=== PATIENT | female | born 1945 | race Caucasian/White ===

== ENCOUNTER 2020-12-18 16:12 | Emergency (ER) | payer MEDICARE, SELFPAY ==
[2020-12-18 16:13] VITALS: BP 168/87; PULSE 92; RESP 18; TEMP 36.3; O2SAT 100; BMI 32.4
--- NOTE | 2020-12-18 16:42 | EKG12_ITS ---
Test Reason : CP Blood Pressure : / mmHG Vent. Rate : 088 BPM Atrial Rate : 088 BPM P-R Int : 148 ms QRS Dur : 104 ms QT Int : 370 ms P-R-T Axes : 052 -12 036 degrees QTc Int : 447 ms Sinus rhythm with occasional Premature ventricular complexes Otherwise normal ECG Confirmed by IGNACIO GARCÍA, GORAN ([id number]), publications editor ABRAM HINKLE ([id number]) on 12/20/2020 9:35:04 AM Referred By: VIOLET Confirmed By:GORAN PIERRE MD
--- NOTE | 2020-12-18 16:42 | RAD_ITS ---
STUDY: X-RAY CHEST REASON FOR EXAM: Female, 75 years old. chest pain TECHNIQUE: Frontal portable view of the chest COMPARISON: None. FINDINGS: There is right lower lobe atelectasis. Otherwise lungs are clear. There is no demonstrated pleural abnormality. Normal size heart. Normal mediastinum and gracie. Normal visualized pulmonary arteries. Normal visualized aortic arch and descending thoracic aorta. Normal visualized thoracic spine. Normal visualized ribs, clavicles, and shoulders. There is no demonstrated abnormality of the visualized soft tissue structures of the upper abdomen. RAD/Chest 1 View (Portable) IMPRESSION: Normal x-ray examination of the chest. Electronically Signed: Heather Hurst MD at 18:50 EDT Tel , Service support ,
--- NOTE | 2020-12-18 16:42 | ED.VIS.CHEST ---
HPI History of Present Illness Chief Complaint: Chest Pain Informant: patient and family Narrative Narrative: 75-year-old female states that about 9 days ago she was at [facility] in [place] and states that she had a small heart attack. She states that she had a stress test that was negative she was placed on unknown blood pressure medication. is going to get the blood pressure medication. She then moved to [place] and established care with Dr. Linton. She saw his nurse practitioner. They have been monitoring her blood pressure at home to see if medication needs to be adjusted.. Patient states it has been high but does not what it was. When her arrived he tells me her blood pressure has been 160-180/80-90. She states that today she would have a sharp pain in her left breast that would last a second and then it would be gone for a few minutes and then come back. She states she got worried and her took her blood pressure and they decided to come in. [facility] Medical History Diabetes Hypercholesteremia Hypothyroid Home Medications aspirin 81 mg PO DAILY 12/18/20 [History Last Taken Unknown] ergocalciferol (vitamin D2) 1,250 mcg PO DAILY 12/18/20 [History Last Taken Unknown] fenofibrate 160 mg PO DAILY 12/18/20 [History Last Taken Unknown] insulin NPH isoph U-100 human [Novolin N NPH U-100 Insulin] 24 unit SUBCUT BID 12/18/20 [History Last Taken Unknown] levothyroxine 150 mcg PO DAILY 12/18/20 [History Last Taken Unknown] lisinopril-hydrochlorothiazide 1 tab PO DAILY 12/18/20 [History Last Taken Unknown] Allergy/AdvReac Type Severity Reaction Status Date / Time No Known Allergies Allergy Verified 12/18/20 16:24 Social History (Updated 12/18/20 @ 16:[address] Isai Louie DO) Smoking Status: Never smoker substance use type: does not use ROS ROS ED ROS Narrative Patient feels foggy Constitutional Constitutional ED: Denies chills or weight loss Eyes Eyes: Denies change in vision or diplopia ENT ENT ED: Denies ear pain, rhinorrhea or sore throat Cardiovascular Cardiovascular: Reports chest pain; Denies orthopnea, palpitations or racing heartbeat Respiratory/Chest Respiratory/Chest: Denies cough, dyspnea or orthopnea Gastrointestinal Gastrointestinal: Denies abdominal pain, diarrhea, nausea or vomiting Genitourinary Genitourinary ED: Denies dysuria, hematuria or urinary frequency Musculoskeletal Musculoskeletal: Denies arthralgias or myalgias Integumentary Denies abscess or rash Neurologic Neurologic: Denies headache(s) or weakness Psychiatric Psychiatric: Denies anxiety, depression, suicidal ideation or suicidal thoughts Endocrine Endocrinology: Denies polydipsia, polyphagia or polyuria Allergic/Immunologic Allergic/Immunologic ED: Denies mouth swelling, tongue swelling or urticaria EXAM Physical Exam Const Vital Signs: 12/18/20 16:13 12/18/20 16:21 12/18/20 18:07 Temperature 97.4 F L Temperature Source Temporal Pulse Rate 92 97 Respiratory Rate 18 16 Respiratory Effort Normal Non-Labored Blood Pressure 168/87 H 169/81 H Blood Pressure Mean 114 110 Pulse Ox 100 97 Oxygen Delivery Method Room Air Room Air Positive well nourished, well developed and obese General Appearance ED: well developed Nutritional Appearance: obese HEENT Reports normocephalic, head/scalp atraumatic and moist mucous membranes Eyes PERRL and EOMs intact bilaterally Neck no lymphadenopathy, supple and no JVD Resp normal respiratory effort and clear to auscultation bilaterally Cardio regular rate, regular rhythm and no murmurs GI normal to inspection, nondistended, normoactive bowel sounds and non-tender Palpation: soft Back/Spine no CVA tenderness and normal ROM Extremity normal to inspection General Extremety ED: Negative for edema General Extremity: Negative for edema Neuro oriented x3 and CN's II-XII intact bilaterally Sensorium / Orientation: alert Motor Exam: strength 5/5 throughout Psych mental status grossly normal Mood & Affect: Negative for depressed or tearful Skin no rashes or lesions noted and no wounds Heart Score History: Slightly/Non-Suspicious ECG: Normal Age: >/= 65 years Risk Factors: 1 or 2 Risk Factors Troponin: </= Normal Limit Score: 3 MDM MDM MDM Narrative Medical decision making narrative: CBC negative. BMP with creatinine 1.22. D-dimer unfortunately elevated 0.66 with a troponin of 6.8. This troponin represents greater than 6 hours of symptoms prior to being drawn. CTA of the chest was negative. At this point patient will be discharged home. I recommend that they collect more data points for her blood pressure readings and report them to their nurse practitioner. I do not think that we should adjust her blood pressure medicine here in the emergency department based on a couple days worth of data. Lab Data Attestation: I reviewed the patient's lab results. Labs: Laboratory Results - last 24 hr 12/18/20 12/18/20 12/18/20 16:25 16:25 16:50 WBC 7.1 RBC 3.86 L Hgb 12.1 Hct 37.8 MCV 97.9 MCH 31.3 MCHC 32.0 RDW Std Deviation 46.3 H RDW Coeff of Alejandra 12.9 Plt Count 267 MPV 10.7 Immature Gran % (Auto) 0.300 Neut % (Auto) 66.1 Lymph % (Auto) 22.2 Casey % (Auto) 8.3 Eos % (Auto) 2.7 Baso % (Auto) 0.4 Absolute Neuts (auto) 4.7 Absolute Lymphs (auto) 1.58 Nucleated RBC % 0 D-Dimer Quant (PE/DVT) 0.66 H* Sodium 139 Potassium 4.2 Chloride 106 Carbon Dioxide 27.0 Anion Gap 6 BUN 35 H Creatinine 1.22 H Estim Creat Clear Calc 35.85 Est GFR (MDRD) Af Amer 55 L Est GFR (MDRD) Non-Af 46 L BUN/Creatinine Ratio 28.7 H Glucose 211 H Calcium 8.9 Troponin I High Sens 6.8 Radiography Diagnostic Testing: Radiology Impression Chest X-Ray 12/18/20 16:42 IMPRESSION: Normal x-ray examination of the chest. Electronically Signed: Heather Hurst MD at 18:50 EDT Tel , Service support , EKG Initial EKG: Attestation: I personally reviewed and interpreted this EKG as follows: Comments: EKG is a sinus rhythm with PVCs ventricular rate of 88 bpm Discharge Plan Triage Chief Complaint: Chest Pain ED Provider: Isai Louie Dx/Rx/DC Orders Clinical Impression: Chest pain, Hypertension Instructions: ED High Blood Pressure Hypertension Prescriptions: No Action lisinopril-hydrochlorothiazide 20-12.5 mg tablet 1 tab PO DAILY RF: 0 levothyroxine 150 mcg tablet 150 mcg PO DAILY RF: 0 aspirin 81 mg tablet,chewable 81 mg PO DAILY RF: 0 ergocalciferol (vitamin D2) 1,250 mcg (50,000 unit) capsule 1,250 mcg PO DAILY RF: 0 Novolin N NPH U-100 Insulin 100 unit/mL Cartridge 24 unit SUBCUT BID RF: 0 fenofibrate 160 mg tablet 160 mg PO DAILY RF: 0 Primary Care Provider: Martín Linton Referrals: Martín Linton MD [Primary Care Provider] - 3-5 Days Disposition Disposition: Home, Self Care
[2020-12-18 16:57] LABS: Absolute Lymphocyte Count 1.58 X10^3/uL (0.83-4.51); Absolute Neutrophil Count 4.7 X10^3/uL (2.0-7.7); Basophil# 0.03 X10^3/uL; Basophil% 0.4 % (0-1); Eosinophil# 0.19 X10^3/uL; Eosinophils% 2.7 % (0-5); Hematocrit 37.8 % (37-47); Hemoglobin 12.1 g/dL (12.0-15.0); Lymphocyte # 1.58 X10^3/ul (0.83-4.51); Lymphocyte % 22.2 % (19-41); Mean Corpuscular Hgb 31.3 pg (27.0-32.0); Mean Corpuscular Volume 97.9 fL (81-99); Mean Platelet Vol. 10.7 fl (6.2-12.0); Monocyte# 0.59 X10^3/uL; Monocyte% 8.3 % (0-10); NRBC Flagged by Analyzer 0 % (0-5); Neutrophil % 66.1 % (47-70); Platelet Count 267 K/mm3 (150-450); RBC Distribution Width CV 12.9 % (11.6-14.6); RBC Distribution Width SD 46.3 fl (35.1-43.9); Red Blood Count 3.86 M/mm3 (4.2-5.4); White Blood Count 7.1 K/mm3 (4.4-11.0)
[2020-12-18 17:13] LABS: D-Dimer Quantitative (DVT/PE) 0.66 FEU/ug/m (0.27-0.49)
[2020-12-18 17:20] LABS: Anion Gap 6 (5-15); BUN 35 mg/dL (7-18); BUN/Creat Ratio 28.7 RATIO (10-20); Calcium,Total 8.9 mg/dL (8.5-10.1); Chloride 106 mmol/L (98-107); Creatinine, Serum 1.22 mg/dL (0.55-1.02); EST Glomerular Filtration Rate 46 mL/min (>60); Est Glom Filt Rate - Afr Amer 55 mL/min (>60); Estimated Creatinine Clearance 35.85 ml/min; Glucose 211 mg/dL (74-106); Potassium 4.2 mmol/L (3.5-5.1); Sodium Level 139 mmol/L (136-145); Troponin-I HS 6.8 pg/mL (3.0-53.7)
--- NOTE | 2020-12-18 17:32 | CT_ITS ---
STUDY: CTA CHEST REASON FOR EXAM: Female, 75 years old. chest pain elevated d dimer RADIATION DOSAGE (If Supplied By Facility): CTDIvol = ( 10.93 ) mGy, DLP = ( 472.20 ) mGycm TECHNIQUE: The examination was performed with the intravenous administration of IV 100mL Isovue-370. Post-processing of the angiographic images was performed, with multiplanar reformation and 3D reconstruction. Individualized dose optimization techniques were used for this CT. COMPARISON: None. FINDINGS: Heart size and pericardium are unremarkable. The aorta is normal in caliber. No aneurysm or dissection. There is no mediastinal mass or adenopathy. There is no hilar or axillary adenopathy. There is no evidence of pulmonary embolus. There is no pleural effusion. Mild airspace disease in the right lower lobe. Lungs are otherwise clear. Visualized abdomen is unremarkable. There is no osseous abnormality. CT/CTA Chest W/WO Contrast IMPRESSION: 1. No pulmonary embolism or arterial dissection. 2. Mild right lower lobe airspace disease suspicious for pneumonia. Electronically Signed: Alexandra Carrasquillo MD at 19:35 EDT Tel , Service support ,
[2020-12-18 18:07] VITALS: BP 169/81; PULSE 97; RESP 16; O2SAT 97
== END 2020-12-18 19:52 | disposition home or self-care (01) ==
PROVIDERS: Emergency Provider Emergency Medicine; PCP Family Medicine
DX: R07.9 Chest pain, unspecified (principal); I10 Essential (primary) hypertension; E11.9 Type 2 diabetes mellitus without complications; E03.9 Hypothyroidism, unspecified; E78.00 Pure hypercholesterolemia, unspecified; E66.9 Obesity, unspecified; Z79.4 Long term (current) use of insulin; Z79.899 Other long term (current) drug therapy
CPT/HCPCS: 71045; 71275; 80048; 84484; 85025; 85379; 93005; 99285; Q9967; A4216

== ENCOUNTER 2021-08-16 23:13 | Emergency (ER) | payer MEDICARE, SELFPAY ==
[2021-08-16 23:14] VITALS: BP 159/106; PULSE 114; RESP 16; TEMP 38.3; O2SAT 95; BMI 33.3
--- NOTE | 2021-08-16 23:29 | EKG12_ITS ---
Test Reason : DYSRHYTHMIA Blood Pressure : / mmHG Vent. Rate : 096 BPM Atrial Rate : 096 BPM P-R Int : 144 ms QRS Dur : 102 ms QT Int : 358 ms P-R-T Axes : 046 -15 031 degrees QTc Int : 452 ms Normal sinus rhythm Normal ECG Confirmed by KAYLA GARCÍA, CELIO ([id number]), script editor ABRAM HINKLE ([id number]) on 08/18/2021 1:04:04 PM Referred By: PL Confirmed By:SAMREEN GARZA MD
--- NOTE | 2021-08-16 23:31 | EDS_ITS ---
HPI History of Present Illness Chief Complaint: General Illness Informant: patient and spouse/S.O. Narrative Narrative: Patient presents with a couple days of generalized weakness mild nausea decreased p.o. intake. She states she is not dizzy. When I asked detail s it is more of a feeling of just feeling off and woozy and ill. It is not vertigo or spinning. It is not presyncope. She has no chest pain or cough. No abdominal pain. No diarrhea. She has had some mild nausea but no vomiting. Her appetite has been down and she has not been eating or drinking much because of the nausea. She does have frequent urination although no dysuria. However, she does have frequent UTIs about every 2 or so months. This is common symptoms that she has with her UTIs. She has been feeling warm at home but has not actually taken her temperature. No rashes. Nothing specifically makes her symptoms better or worse. [facility] Medical History Diabetes Hypercholesteremia Hypothyroid Home Medications aspirin 81 mg PO DAILY 12/18/20 [History Last Taken Unknown] ergocalciferol (vitamin D2) 1,250 mcg PO DAILY 12/18/20 [History Last Taken Unknown] fenofibrate 160 mg PO DAILY 12/18/20 [History Last Taken Unknown] insulin NPH isoph U-100 human [Novolin N NPH U-100 Insulin] 24 unit SUBCUT BID 12/18/20 [History Last Taken Unknown] levothyroxine 150 mcg PO DAILY 12/18/20 [History Last Taken Unknown] lisinopril-hydrochlorothiazide 1 tab PO DAILY 12/18/20 [History Last Taken Unknown] nitrofurantoin monohyd/m-cryst [Macrobid] 100 mg PO BID 7 Days #14 cap 08/17/21 [Rx Last Taken Unknown] ondansetron 4 mg PO Q8H PRN #10 tab 08/17/21 [Rx Last Taken Unknown] Allergy/AdvReac Type Severity Reaction Status Date / Time No Known Allergies Allergy Verified 08/16/21 23:23 Social History Smoking Status: Never smoker substance use type: does not use ROS ROS ED Constitutional Constitutional ED: Reports subjective Eyes Eyes: Denies blurry vision ENT ENT ED: Denies rhinorrhea or sore throat Cardiovascular Cardiovascular: Denies chest pain or palpitations Respiratory/Chest Respiratory/Chest: Denies cough or dyspnea Gastrointestinal Gastrointestinal: Reports nausea; Denies abdominal pain, diarrhea or vomiting Genitourinary Genitourinary ED: Reports urinary frequency; Denies dysuria or hematuria Musculoskeletal Musculoskeletal: Denies myalgias Integumentary Denies rash Neurologic Neurologic: Denies headache(s), paresthesias or weakness Endocrine Endocrinology: Denies polydipsia or polyuria Allergic/Immunologic Allergic/Immunologic ED: Denies urticaria EXAM Physical Exam Const Vital Signs: 08/16/21 23:14 08/16/21 23:43 Temperature 100.9 F H 100.6 F H Temperature Source Temporal Oral Pulse Rate 114 H 105 H Respiratory Rate 16 18 Blood Pressure 159/106 H 156/86 H Blood Pressure Mean 123 109 Pulse Ox 95 95 Oxygen Delivery Method Room Air Room Air Positive well nourished and well developed General Appearance ED: well developed and NAD; Negative for cyanotic or diaphoretic HEENT Reports dry mucous membranes Mouth ED: Yes dry mucous membranes Mouth: dry mucous membranes Eyes General Eye ED: Negative for pale conjunctiva or scleral icterus Neck no JVD Chest Wall inspection of chest normal Resp normal respiratory effort and clear to auscultation bilaterally Auscultation: Negative for rales, rhonchi or wheezes Cardio regular rhythm and no murmurs Rate: tachycardic GI normal to inspection, nondistended, normoactive bowel sounds and non-tender Palpation: soft Back/Spine no CVA tenderness Extremity normal to inspection General Extremety ED: Negative for edema or tenderness General Extremity: Negative for edema Neuro oriented x3 and no sensory deficits noted Sensorium / Orientation: alert; Negative for orientation impaired, lethargic or stuporous Motor Exam: strength 5/5 throughout Psych mental status grossly normal Skin no rashes or lesions noted MDM MDM MDM Narrative Medical decision making narrative: Patient's white count is normal. CBC shows minimal anemia. Electrolytes show minimally decreased sodium creatinine 1.24. Glucose a little bit up at 177. Troponin is negative at 5. Urine is strongly positive for UTI. This is consistent with her symptoms and her history. I did give her some IV fluids and IV Rocephin here. Her heart rate is now down to 89. Her nausea is gone. She is drinking water while I am in the room. I will get her home on Macrobid. Cultures were sent. I will also write for Mathieu for nausea. We discussed returning with any vomiting, worsening fevers, flank pain, lightheadedness, confusion or other concerns. Lab Data Attestation: I reviewed the patient's lab results. Labs: Laboratory Results - last 24 hr 08/16/21 08/16/21 08/16/21 23:20 23:20 23:28 WBC 10.7 RBC 3.82 L Hgb 11.9 L Hct 36.0 L MCV 94.2 MCH 31.2 MCHC 33.1 RDW Std Deviation 46.4 H RDW Coeff of Alejandra 13.4 Plt Count 298 MPV 10.3 Immature Gran % (Auto) 0.400 Neut % (Auto) 79.4 H Lymph % (Auto) 10.1 L Prentiss % (Auto) 9.2 Eos % (Auto) 0.7 Baso % (Auto) 0.2 Absolute Neuts (auto) 8.5 H Absolute Lymphs (auto) 1.08 Nucleated RBC % 0 Sodium 132 L Potassium 4.9 Chloride 104 Carbon Dioxide 22.0 Anion Gap 6 BUN 24 H Creatinine 1.24 H Estim Creat Clear Calc 35.27 Est GFR (MDRD) Af Amer 54 L Est GFR (MDRD) Non-Af 45 L BUN/Creatinine Ratio 19.4 Glucose 177 H Calcium 9.2 Troponin I High Sens 5 Urine Color Urine Clarity Urine pH Ur Specific [place] Urine Protein Urine Glucose (UA) Urine Ketones Urine Occult Blood Urine Nitrite Urine Bilirubin Urine Urobilinogen Ur Leukocyte Esterase Urine RBC Urine WBC Ur Squamous Epith Cells Ur Renal Epithelial Cell Urine Bacteria Urine Mucus POC Glucose 193 H 08/16/21 23:40 WBC RBC Hgb Hct MCV MCH MCHC RDW Std Deviation RDW Coeff of Alejandra Plt Count MPV Immature Gran % (Auto) Neut % (Auto) Lymph % (Auto) Prentiss % (Auto) Eos % (Auto) Baso % (Auto) Absolute Neuts (auto) Absolute Lymphs (auto) Nucleated RBC % Sodium Potassium Chloride Carbon Dioxide Anion Gap BUN Creatinine Estim Creat Clear Calc Est GFR (MDRD) Af Amer Est GFR (MDRD) Non-Af BUN/Creatinine Ratio Glucose Calcium Troponin I High Sens Urine Color Yellow Urine Clarity Cloudy Urine pH 6.0 Ur Specific [place] 1.010 Urine Protein 30 H Urine Glucose (UA) Normal Urine Ketones Negative Urine Occult Blood 50 H Urine Nitrite Positive H Urine Bilirubin Negative Urine Urobilinogen Normal Ur Leukocyte Esterase 500 H Urine RBC 5-10 SEEN Urine WBC >100 SEEN Ur Squamous Epith Cells 5-10 SEEN Ur Renal Epithelial Cell 0-5 SEEN Urine Bacteria 2+ Urine Mucus 0 SEEN POC Glucose EKG Initial EKG: Comments: EKG done for generalized weakness and elderly read by me shows a normal sinus rhythm with a rate of 96. No ventricular ectopy. No acute ST elevation or depression. WI interval, QRS duration and QTc normal. Discharge Plan Triage Chief Complaint: General Illness ED Provider: Fer Fish Dx/Rx/DC Orders Clinical Impression: Urinary tract infection Instructions: ED CYSTITIS Female Adult Prescriptions: New ondansetron 4 mg tablet,disintegrating 4 mg PO Q8H PRN (Reason: nausea and vomiting) Qty: 10 RF: 0 nitrofurantoin monohyd/m-cryst [Macrobid] 100 mg capsule 100 mg PO BID 7 Days Qty: 14 RF: 0 No Action lisinopril-hydrochlorothiazide 20-12.5 mg tablet 1 tab PO DAILY RF: 0 levothyroxine 150 mcg tablet 150 mcg PO DAILY RF: 0 aspirin 81 mg tablet,chewable 81 mg PO DAILY RF: 0 ergocalciferol (vitamin D2) 1,250 mcg (50,000 unit) capsule 1,250 mcg PO DAILY RF: 0 Novolin N NPH U-100 Insulin 100 unit/mL Cartridge 24 unit SUBCUT BID RF: 0 fenofibrate 160 mg tablet 160 mg PO DAILY RF: 0 Primary Care Provider: Martín Linton Referrals: Martín Linton MD [Primary Care Provider] - 3-5 Days if not improving Disposition Disposition: Home, Self Care
[2021-08-16 23:35] LABS: Bedside Glucose 193 mg/dL (74-106)
[2021-08-16] MEDS: Acetaminophen 325 MG Tablet 650 MG PO (23:41)
[2021-08-16] MEDS: Ondansetron 4 MG/2 ML Vial IV (23:42)
[2021-08-16] MEDS: 0.9% Normal Saline 1,000 ML 1000 ML IV (23:42)
[2021-08-16 23:43] VITALS: BP 156/86; PULSE 105; RESP 18; TEMP 38.1; O2SAT 95
[2021-08-16 23:51] LABS: Mucous, Urine 0 SEEN /hpf (<or=2+)
[2021-08-16 23:52] LABS: Absolute Lymphocyte Count 1.08 X10^3/uL (0.83-4.51); Absolute Neutrophil Count 8.5 X10^3/uL (2.0-7.7); Basophil# 0.02 X10^3/uL; Basophil% 0.2 % (0-1); Eosinophil# 0.08 X10^3/uL; Eosinophils% 0.7 % (0-5); Hemoglobin 11.9 g/dL (12.0-15.0); Lymphocyte # 1.08 X10^3/ul (0.83-4.51); Lymphocyte % 10.1 % (19-41); Mean Corp Hgb Conc 33.1 g/dL (32-36); Mean Corpuscular Hgb 31.2 pg (27.0-32.0); Mean Corpuscular Volume 94.2 fL (81-99); Mean Platelet Vol. 10.3 fl (6.2-12.0); Monocyte# 0.98 X10^3/uL; Monocyte% 9.2 % (0-10); NRBC Flagged by Analyzer 0 % (0-5); Neutrophil # 8.49 X10^3/uL (2.7-7.7); Neutrophil % 79.4 % (47-70); Platelet Count 298 K/mm3 (150-450); RBC Distribution Width CV 13.4 % (11.6-14.6); RBC Distribution Width SD 46.4 fl (35.1-43.9); Red Blood Count 3.82 M/mm3 (4.2-5.4); White Blood Count 10.7 K/mm3 (4.4-11.0)
[2021-08-16 23:53] LABS: Color, Urine Yellow (Yellow); Glucose, Dipstick Normal (Normal); Ketone-Dipstick Negative (Negative); Leukocyte Esterase-Dipstick 500 /ul (Negative); Nitrite-Dipstick Positive (Negative); Occult Blood-Urine 50 /ul (Negative); Protein-Dipstick 30 mg/dl (Negative); Urine Bilirubin Dipstick Negative (Negative); Urine Clarity Cloudy (Clear); Urine Urobilinogen Normal (Normal)
[2021-08-17] LABS: Red Blood Cells-Urine 5-10 SEEN /hpf (0-5); Squamous Epithelial Cells - UA 5-10 SEEN /hpf (5-10); White Blood Cells >100 SEEN /hpf (0-5)
[2021-08-17 00:01] LABS: Bacteria 2+ /hpf (None Seen); Renal Epithelial Cells 0-5 SEEN /hpf (0-5)
[2021-08-17] MEDS: Ceftriaxone 1 GM/50 ML BAG IV (00:21)
[2021-08-17 00:22] LABS: Anion Gap 6 (5-15); BUN 24 mg/dL (7-18); BUN/Creat Ratio 19.4 RATIO (10-20); Calcium,Total 9.2 mg/dL (8.5-10.1); Chloride 104 mmol/L (98-107); Creatinine, Serum 1.24 mg/dL (0.55-1.02); EST Glomerular Filtration Rate 45 mL/min (>60); Est Glom Filt Rate - Afr Amer 54 mL/min (>60); Estimated Creatinine Clearance 35.27 ml/min; Glucose 177 mg/dL (74-106); Potassium 4.9 mmol/L (3.5-5.1); Sodium Level 132 mmol/L (136-145); Troponin-I HS 5 pg/mL (3.0-54.0)
[2021-08-17 01:28] VITALS: BP 139/64; PULSE 83; RESP 18; TEMP 36.8; O2SAT 93
== END 2021-08-17 01:33 | disposition home or self-care (01) ==
PROVIDERS: Emergency Provider Emergency Medicine; PCP Family Medicine; Visit Provider Emergency Medicine
DX: N39.0 Urinary tract infection, site not specified (principal); E11.9 Type 2 diabetes mellitus without complications; R11.0 Nausea; D64.9 Anemia, unspecified; E78.00 Pure hypercholesterolemia, unspecified; Z79.82 Long term (current) use of aspirin; Z79.890 Hormone replacement therapy; Z79.899 Other long term (current) drug therapy
CPT/HCPCS: 80048; 81001; 82962; 84484; 85025; 87086; 87088; 87186; 93005; 96361; 96365; 96375; 99284; J2405

== ENCOUNTER 2023-10-17 08:28 | Emergency (ER) | payer MEDICARE, SELFPAY ==
[2023-10-17 08:29] VITALS: BP 166/75; PULSE 84; RESP 16; TEMP 36.6; O2SAT 97; BMI 34.4
--- NOTE | 2023-10-17 08:39 | RAD_ITS ---
STUDY: X-RAY - LEFT HUMERUS REASON FOR EXAM: Female, 78 years old. FALL TECHNIQUE: 3 view(s) of the humerus. COMPARISON: None. FINDINGS: There is a nondisplaced fracture of the surgical neck of the proximal humerus extending into the lesser and greater tuberosities. Soft tissue swelling. RAD/Humerus min 2 Views IMPRESSION: Nondisplaced transverse fracture through the surgical neck of the proximal humerus with extension to the greater and lesser tuberosities. Electronically Signed: Jax Liz MD at 9:11 EDT ,
--- NOTE | 2023-10-17 08:52 | EDS_ITS ---
HPI History of Present Illness Chief Complaint: Upper Extremity Injury Informant: patient and EMS Narrative Narrative: 78-year-old female presenting to the emergency room with left upper arm pain. Patient states that she took a fall this morning after stepping wrong coming out onto her deck. She states that she is unsure if she tried to catch herself but knows that the left shoulder hit the ground. She denies any other injuries. The patient states that the pain is feeling better now but still hurts just below her left shoulder. [facility] Medical History Hypercholesteremia Diabetes Hypothyroid Home Medications ?Medication ?Instructions ?Recorded ?Last Taken ?Type aspirin 81 mg chewable tablet 81 mg PO DAILY 12/18/20 Unknown History ergocalciferol (vitamin D2) 1,250 1,250 mcg PO DAILY 12/18/20 Unknown History mcg (50,000 unit) capsule fenofibrate 160 mg tablet 160 mg PO DAILY 12/18/20 Unknown History insulin NPH isoph U-100 human 100 24 unit subcut BID 12/18/20 Unknown History unit/mL subcutaneous cartridge levothyroxine 150 mcg tablet 150 mcg PO DAILY 12/18/20 Unknown History lisinopril 20 1 tab PO DAILY 12/18/20 Unknown History mg-hydrochlorothiazide 12.5 mg tablet nitrofurantoin 100 mg PO BID 7 days #14 caps 08/17/21 Unknown Rx monohydrate/macrocrystals 100 mg capsule (Macrobid) ondansetron 4 mg disintegrating 4 mg PO Q8H PRN nausea and 08/17/21 Unknown Rx tablet vomiting #10 tabs oxycodone-acetaminophen 5 mg-325 1 tab PO Q8H PRN pain 3 days #12 10/17/23 Unknown Rx mg tablet (Percocet) tabs Allergy/AdvReac Type Severity Reaction Status Date / Time No Known Allergies Allergy Verified 10/17/23 08:33 Social History Smoking Status: Never smoker substance use type: does not use ROS ROS ED Constitutional Constitutional ED: Denies chills, fever(s) or weight loss Eyes Eyes: Denies change in vision or diplopia ENT ENT ED: Denies ear pain, rhinorrhea or sore throat Cardiovascular Cardiovascular: Denies chest pain, orthopnea, palpitations or racing heartbeat Respiratory/Chest Respiratory/Chest: Denies cough, dyspnea or orthopnea Gastrointestinal Gastrointestinal: Denies abdominal pain, diarrhea, nausea or vomiting Genitourinary Genitourinary ED: Denies dysuria, hematuria or urinary frequency Musculoskeletal Musculoskeletal: Reports other Details: Left upper arm pain ; Denies arthralgias, back pain, myalgias or neck pain Integumentary Denies abscess, Abrasions or rash Neurologic Neurologic: Denies headache(s) or weakness Psychiatric Psychiatric: Denies anxiety, depression, suicidal ideation or suicidal thoughts Endocrine Endocrinology: Denies polydipsia, polyphagia or polyuria Allergic/Immunologic Allergic/Immunologic ED: Denies mouth swelling, tongue swelling or urticaria EXAM Physical Exam Const Vital Signs: 10/17/23 08:29 Temperature 98 F Temperature Source Oral Pulse Rate 84 Respiratory Rate 16 Blood Pressure 166/75 H Blood Pressure Mean 105 Pulse Ox 97 Oxygen Delivery Method Room Air Positive well nourished, well developed and obese General Appearance ED: well developed Nutritional Appearance: obese HEENT Reports normocephalic, head/scalp atraumatic and moist mucous membranes Eyes PERRL and EOMs intact bilaterally Neck full ROM, no lymphadenopathy, supple and no JVD General: Negative for tenderness Resp normal respiratory effort and clear to auscultation bilaterally Cardio regular rate, regular rhythm and no murmurs GI normal to inspection, nondistended, normoactive bowel sounds and non-tender Palpation: soft Back/Spine no CVA tenderness and normal ROM Extremity Extremity Narrative: Patient is laying in the bed no acute distress. She holds the left shoulder and more of the left shoulder shrug. She points to the mid upper humerus as the area that hurts. I do not palpate a deformity dislocation or significant swelling or see ecchymosis. Limited range of motion secondary to pain. The cla vicle palpates normally. No tenderness over the scapula. General Extremety ED: Negative for edema General Extremity: Negative for edema Neuro oriented x3 and CN's II-XII intact bilaterally Sensorium / Orientation: alert Motor Exam: strength 5/5 throughout Psych mental status grossly normal Mood & Affect: Negative for depressed or tearful Skin no rashes or lesions noted and no wounds MDM MDM MDM Narrative Medical decision making narrative: Differential diagnosis includes rotator cuff injury fracture sprain strain bursitis tendinitis My independent interpretation of the plain films is an acutely comminuted fracture of the proximal humerus. Patient received pain medication. She will be placed in a sling. I spoke with the patient regarding follow-up. Given the location and the comminuted fracture I informed her I would speak with orthopedics to see if they would prefer a CT scan for more thorough evaluation. She states that she does not do CT scans and even if she did she would have 1 done today. She states that she would like to go home and will make a follow-up appointment. I can write for some pain medication. History & Record Review Discussion w/independent historian: Patient Lab Data Attestation: I reviewed the patient's lab results. Radiography Diagnostic Testing: Clinical Impression(s) from Imaging Studies Humerus X-Ray 10/17/23 08:39 IMPRESSION: Nondisplaced transverse fracture through the surgical neck of the proximal humerus with extension to the greater and lesser tuberosities. Electronically Signed: Jax Liz MD at 9:11 EDT , Discharge Plan Triage Chief Complaint: Upper Extremity Injury ED Provider: Isai Louie Dx/Rx/DC Orders Clinical Impression: Fall, Fracture of proximal end of humerus Instructions: ED Fracture, Shoulder Prescriptions: New oxycodone-acetaminophen [Percocet] 5-325 mg tablet 1 tab PO Q8H PRN (Reason: pain) 3 Days Qty: 12 0RF No Action lisinopril-hydrochlorothiazide 20-12.5 mg tablet 1 tab PO DAILY Patient Comments: TAKE 1 TABLET BY MOUTH DAILY levothyroxine 150 mcg tablet 150 mcg PO DAILY Patient Comments: TAKE 1 TABLET BY MOUTH ONCE DAILY aspirin 81 mg tablet,chewable 81 mg PO DAILY Patient Comments: chew and swallow 1 tablet every day ergocalciferol (vitamin D2) 1,250 mcg (50,000 unit) capsule 1,250 mcg PO DAILY Patient Comments: TAKE 1 CAPSULE EVERY WEEK Novolin N NPH U-100 Insulin 100 unit/mL Cartridge 24 unit SUBCUT BID fenofibrate 160 mg tablet 160 mg PO DAILY Patient Comments: TAKE 1 TABLET BY MOUTH EVERY DAY ondansetron 4 mg tablet,disintegrating 4 mg PO Q8H PRN (Reason: nausea and vomiting) Qty: 10 0RF nitrofurantoin monohyd/m-cryst [Macrobid] 100 mg capsule 100 mg PO BID 7 Days Qty: 14 0RF Rx Instructions: must administer with a meal/food Primary Care Provider: Martín Linton Referrals: Martín Linton MD [Primary Care Provider] - Marty Penny DO [Med Staff - Active Staff] - As soon as possible Print Language: Upper Sorbian Disposition Disposition: Home, Self Care Discharge Date/Time: 10/17/23 10:22
[2023-10-17] MEDS: oxyCODONE 5 MG Tablet PO (09:17)
[2023-10-17] MEDS: Acetaminophen 500 MG Tablet 1000 MG PO (09:18)
[2023-10-17 10:21] VITALS: BP 154/89; PULSE 67; RESP 16; TEMP 36.7; O2SAT 98
== END 2023-10-17 10:22 | disposition home or self-care (01) ==
PROVIDERS: Emergency Provider Emergency Medicine; PCP Family Medicine; Visit Provider Emergency Medicine
DX: S42.215A Unspecified nondisplaced fracture of surgical neck of left humerus, initial encounter for closed fracture (principal); E11.9 Type 2 diabetes mellitus without complications; Z79.4 Long term (current) use of insulin; W01.10XA Fall on same level from slipping, tripping and stumbling with subsequent striking against unspecified object, initial encounter; E78.00 Pure hypercholesterolemia, unspecified; E03.9 Hypothyroidism, unspecified; Z79.82 Long term (current) use of aspirin; Z79.890 Hormone replacement therapy; Z79.899 Other long term (current) drug therapy
CPT/HCPCS: 73060; 99283

== ENCOUNTER 2024-02-04 11:08 | Inpatient (IN) | payer MEDICARE, SELFPAY ==
[2024-02-04] VITALS (9 sets, daily range): BP systolic 120–176; BP diastolic 78–110; PULSE 86–101; RESP 17–30; TEMP 36.1–37; O2SAT 82–98; BMI 35.6; BMI 33.7
--- NOTE | 2024-02-04 11:30 | RAD_ITS ---
HISTORY: Congestion, shortness of breath, hypoxia. TECHNIQUE: XR Chest 2 Views. COMPARISON: 12/18/2020. FINDINGS: CARDIOMEDIASTINAL BORDERS: Cardiac silhouette within normal limits in size. Mediastinal contour unremarkable with calcification of the aortic knob. LUNGS: Radiographically clear. PLEURA: No pleural effusion or pneumothorax seen. OSSEOUS STRUCTURES: Degenerative change. 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 RAD/Chest PA and Lateral IMPRESSION: No acute cardiopulmonary process identified. Electronically Signed: Dolly Baker MD at 12:15 EDT ,
--- NOTE | 2024-02-04 11:30 | EKG12_ITS ---
Test Reason : SOB/PALP Blood Pressure : / mmHG Vent. Rate : 094 BPM Atrial Rate : 094 BPM P-R Int : 154 ms QRS Dur : 136 ms QT Int : 420 ms P-R-T Axes : 057 -59 012 degrees QTc Int : 525 ms Normal sinus rhythm Possible Left atrial enlargement Right bundle branch block Left anterior fascicular block Bifascicular block Abnormal ECG Confirmed by IGNACIO GARCÍA, GORAN ([id number]), general expeditor MAYO FAUSTIN ([id number]) on 02/07/2024 6:20:16 AM Referred By: ES/UG Confirmed By:GORAN PIERRE MD
--- NOTE | 2024-02-04 11:39 | ED.VIS.DYS ---
HPI History of Present Illness Chief Complaint: Shortness of Breath Detail of Chief Complaint: Shortness of breath and generalized weakness Informant: patient and spouse/S.O. Onset/Context/Timing Onset: Days Context: gradual Timing: Continuous and Waxes and wanes Quality: Positive for Dyspnea on exertion and Orthopnea (Patient slept in a recliner for approximately 1 year); Negative for PND or Wheezing Current Severity: Mild Maximum Severity: Moderate Worsened by: Exertion, Lying flat and Coughing Relieved by: Nothing Associated Symptoms cough and rhinorrhea; Negative for post nasal drip, ear pain, fever, sore throat, subjective, chills or sweats Chest Pain: Positive for None Narrative Narrative: Patient is a 78-year-old woman. She arrived by ambulance. Ambulance was called because she was short of breath. Pulse ox on room air was 82%. Patient is not on oxygen. She has history of atrial fibrillation, hypothyroidism and hypertension. Patient reports compliance with her meds. She states she took a aspirin this morning. She is not on an anticoagulant. She denies history of smoking. She denies history of lung problems and specifically asthma or COPD. Patient does have history of swollen legs. She has had this for some time. She denies history of VTE. She denies leg discoloration or pain. She denies pain with breathing. She denies abdominal pain, black or maroon-colored stool. Patient denies fever, chills night sweats. She does have some upper respiratory symptoms. She denies ill contacts. PE Risk Factors: Negative for Cancer, OCP + Smoking + > 35, Prior DVT or PE, Recent immobilization, Recent surgery or Recent travel Prior similar symptoms: No Recent Illness/Hospitalization: Yes (Recently diagnosed with atrial fibrillation.) [facility] Medical History (Updated 02/04/24 @ 14:[address] Casimiro Parikh MD) Atrial fibrillation Hypercholesteremia Diabetes Hypothyroid Home Medications ?Medication ?Instructions ?Recorded ?Last Taken ?Type fenofibrate 160 mg tablet 160 mg PO DAILY 12/18/20 Unknown History insulin NPH isoph U-100 human 100 24 unit subcut BID 12/18/20 Unknown History unit/mL subcutaneous cartridge ondansetron 4 mg disintegrating 4 mg PO Q8H PRN nausea and 08/17/21 Unknown Rx tablet vomiting #10 tabs oxycodone-acetaminophen 5 mg-325 1 tab PO Q8H PRN pain 3 days #12 10/17/23 Unknown Rx mg tablet (Percocet) tabs ascorbic acid (vitamin C) 100 mg 100 mg PO QDAY 01/24/24 Unknown History tablet aspirin 325 mg tablet 325 mg PO QDAY 01/24/24 Unknown History enalapril maleate 20 mg tablet 20 mg PO QDAY 01/24/24 Unknown History ergocalciferol (vitamin D2) 1,250 1,250 mcg PO QWEEK 01/24/24 Unknown History mcg (50,000 unit) capsule levothyroxine 175 mcg tablet 175 mcg PO QDAY 01/24/24 Unknown History (Synthroid) multivitamin 1 tab PO QAM 01/24/24 Unknown History sertraline 100 mg tablet 100 mg PO QDAY 01/24/24 Unknown History zinc acetate PO 01/24/24 Unknown History Allergy/AdvReac Type Severity Reaction Status Date / Time prednisone Allergy Mild unknown Verified 02/04/24 11:08 Surgical History H/O tubal ligation Social History Smoking Status: Never smoker Electronic Cigarette Use: not used alcohol intake: never substance use type: does not use ROS ROS ED Constitutional Constitutional ED: Denies chills, fever(s) or sweats Eyes Eyes: Denies blurry vision or change in vision ENT ENT ED: Reports rhinorrhea; Denies ear pain or sore throat Cardiovascular Cardiovascular: Reports orthopnea; Denies chest pain, palpitations, paroxysmal nocturnal dyspnea or racing heartbeat Respiratory/Chest Respiratory/Chest: Reports cough, dyspnea, dyspnea on exertion, orthopnea and sputum; Denies paroxysmal nocturnal dyspnea Gastrointestinal Gastrointestinal: Denies abdominal pain, diarrhea, melena, nausea or vomiting Genitourinary Genitourinary ED: Reports other Details: Patient states she has had urinary tract infection. She has symptoms when she has an infection. Presently she has none. ; Denies dysuria, hematuria or urinary frequency Musculoskeletal Musculoskeletal: Denies back pain or neck pain Integumentary Denies rash Neurologic Neurologic: Reports weakness; Denies headache(s) or paresthesias Endocrine Endocrinology: Denies cold intolerance or heat intolerance Hematologic/Lymphatic Hematologic/Lymphatic: Denies easy bleeding or easy bruising EXAM Physical Exam Const Vital Signs: 02/04/24 11:08 02/04/24 11:12 02/04/24 11:13 Temperature 98.6 F 98.4 F Temperature Source Oral Oral Pulse Rate 101 H 98 Respiratory Rate 18 24 H Respiratory Effort Short of Breath Respiratory Depth Normal Respiratory Pattern Tachypnea Blood Pressure 168/84 H 168/84 H Blood Pressure Mean 112 112 Pulse Ox 94 94 Oxygen Delivery Method Nasal Cannula Nasal Cannula Nasal Cannula Oxygen Flow Rate (L/min) 4 2 2 02/04/24 11:48 02/04/24 13:07 Temperature Temperature Source Pulse Rate 92 Respiratory Rate 30 H Respiratory Effort Respiratory Depth Respiratory Pattern Blood Pressure 127/110 H Blood Pressure Mean 115 Pulse Ox 96 95 Oxygen Delivery Method Nasal Cannula Nasal Cannula Oxygen Flow Rate (L/min) 2 4 Positive well nourished, well developed and unkempt Constitutional Narrative: Patient is slightly tachypneic. There is no use of accessory muscles. General Appearance ED: unkempt, well developed and pallor HEENT Reports dry mucous membranes HEENT Narrative: Head is atraumatic no cephalic. Ears normal. Nares patent. Posterior pharynx is normal. Uvula is midline. There is no deviation of the tongue with protrusion. Mouth ED: Yes dry mucous membranes Mouth: dry mucous membranes Eyes PERRL and EOMs intact bilaterally General Eye ED: Negative for pale conjunctiva or scleral icterus Neck no lymphadenopathy, supple, no meningeal signs and no JVD Resp normal respiratory effort and clear to auscultation bilaterally Cardio regular rate, regular rhythm, S1 normal heart sound, S2 normal heart sound and no murmurs GI non-tender, non-distended and no masses Auscultation: normoactive bowel sounds Palpation: soft Back/Spine no CVA tenderness Extremity Extremity Narrative: There is evidence of venous stasis dermatitis. General Extremety ED: Yes edema General Extremity: edema Neuro oriented x3 and CN's II-XII intact bilaterally [place] Coma Scale: document GCS findings Spontaneous Obeys Commands Oriented 15 Sensorium / Orientation: alert Speech: speech normal Psych Appearance: unkempt Mood & Affect: depressed Skin no wounds and No skin turgor normal General Skin Exam: pallor; Negative for jaundice MDM MDM MDM Narrative Medical decision making narrative: Differential diagnosis would include pneumonia, pulmonary embolus, doubt CHF. Also need to consider cardiac ischemia. Symptoms are suggestive of possible viral illness. For this reason we will obtain rapid antigen for COVID, RSV and influenza. EKG was obtained to assess rhythm as well as any acute ischemia. CBC to assess white count and H&H and she appears pale. Since she is diabetic electrolyte panel was obtained to assess glucose, anion gap as well as renal function. Since there is concern for infection lactate was ordered as well as comprehensive metabolic panel to assess for any or endorgan dysfunction. Lab Data Labs: Laboratory Results - last 24 hr 02/04/24 11:49 WBC 6.4 RBC 3.80 L Hgb 11.8 L Hct 36.9 L MCV 97.1 MCH 31.1 MCHC 32.0 RDW Std Deviation 47.3 H RDW Coeff of Alejandra 13.3 Plt Count 251 MPV 11.1 Immature Gran % (Auto) 0.500 Neut % (Auto) 78.0 H Lymph % (Auto) 11.5 L Wake % (Auto) 8.1 Eos % (Auto) 1.6 Baso % (Auto) 0.3 Absolute Neuts (auto) 5.0 Absolute Lymphs (auto) 0.74 L Nucleated RBC % 0 Sodium 138 Potassium 4.8 Chloride 108 H Carbon Dioxide 23.0 Anion Gap 7 BUN 39 H Creatinine 1.30 H Estim Creat Clear Calc 41.48 Est GFR (MDRD) Af Amer 51 L Est GFR (MDRD) Non-Af 42 L BUN/Creatinine Ratio 30.0 H Glucose 247 H Lactic Acid 2.0 Calcium 9.1 Total Bilirubin 0.30 AST 26 ALT 22 Alkaline Phosphatase 49 Troponin I High Sens 42 Total Protein 7.9 Albumin 3.3 Globulin 4.6 H Albumin/Globulin Ratio 0.7 L Radiography Chest X-Ray - ED: 2 View, Read by ED Physician, Normal, Heart, Lungs (Lung parenchyma is unremarkable with no evidence of congestive heart failure, infiltrates or atelectasis.), Mediastinum, Bony Structures and No Acute Disease Diagnostic Testing: Clinical Impression(s) from Imaging Studies Chest X-Ray 02/04/24 11:30 IMPRESSION: No acute cardiopulmonary process identified. Electronically Signed: Dolly Baker MD at 12:15 EDT Reading Location ID and State: [facility] / CT Tel , Service support , CTA of the chest reveals bilateral significant pulmonary embolus. Spoke with Dr. Noah Singh's nurse practitioner. They will evaluate patient for possible thrombectomy. Recommended heparin bolus and drip. This will be conveyed to the hospitalist. Rhythm Strip Rhythm Strip: Sinus Rhythm (99) Rate: 99 (Complexes wide.) Ectopy: None EKG Initial EKG: Attestation: I personally reviewed and interpreted this EKG as follows: Interpretation: Sinus Rhythm (Rate is 94. SD interval is 154 ms. QRS duration is prolonged at 136 ms and has configuration of right bundle branch block and probable left anterior fascicular block. QT duration is 420 ms. The EKG is abnormal.) Management Discussion w/another healthcare provider: Hospitalist (For admission for respiratory failure due to pulmonary embolus) and Histotechnician (Dr. Singh to evaluate for pulmonary thrombectomy) Treatment and Re-Evaluation :: CTA of the chest reveals bilateral pulmonary embolus. Since patient hypoxic require admission. Dr. Singh was paged to discuss/ask if he does pulmonary thrombectomies. Critical Care Time Critical Care Time: Yes Critical care time (excluding procedures): 30-74 minutes (33), Including time spent: (History, physical, documentation, independent rotation laboratory results, imaging, CAT scan, discussion with sap consultant for pulmonary thrombectomy), Discussing w/Patient &/or Family/Roustabout Crew, Discussing w/Consultants and Arranging Admission or Transfer Discharge Plan Triage Chief Complaint: Shortness of Breath ED Provider: Casimiro Parikh Dx/Rx/DC Orders Clinical Impression: Acute hypoxemic respiratory failure, Hypertension, Bilateral pulmonary embolism, Tachypnea, Chronic venous stasis dermatitis Prescriptions: No Action levothyroxine [Synthroid] 175 mcg tablet 175 mcg PO QDAY enalapril maleate 20 mg tablet 20 mg PO QDAY aspirin 325 mg tablet 325 mg PO QDAY multivitamin Tablet 1 tab PO QAM ascorbic acid (vitamin C) 100 mg tablet 100 mg PO QDAY zinc acetate PO sertraline 100 mg tablet 100 mg PO QDAY Novolin N NPH U-100 Insulin 100 unit/mL Cartridge 24 unit SUBCUT BID fenofibrate 160 mg tablet 160 mg PO DAILY Patient Comments: TAKE 1 TABLET BY MOUTH EVERY DAY ergocalciferol (vitamin D2) 1,250 mcg (50,000 unit) capsule 1,250 mcg PO QWEEK Patient Comments: TAKE 1 CAPSULE EVERY WEEK ondansetron 4 mg tablet,disintegrating 4 mg PO Q8H PRN (Reason: nausea and vomiting) Qty: 10 0RF oxycodone-acetaminophen [Percocet] 5-325 mg tablet 1 tab PO Q8H PRN (Reason: pain) 3 Days Qty: 12 0RF Primary Care Provider: Martín Linton Referrals: Martín Linton MD [Primary Care Provider] - Print Language: New Zealander Disposition Disposition: Acute Care Hospital [facility]
[2024-02-04 12:18] LABS: Absolute Lymphocyte Count 0.74 X10^3/uL (0.83-4.51); Basophil# 0.02 X10^3/uL; Basophil% 0.3 % (0-1); Eosinophils% 1.6 % (0-5); Hematocrit 36.9 % (37-47); Hemoglobin 11.8 g/dL (12.0-15.0); Lymphocyte # 0.74 X10^3/ul (0.83-4.51); Lymphocyte % 11.5 % (19-41); Mean Corpuscular Hgb 31.1 pg (27.0-32.0); Mean Corpuscular Volume 97.1 fL (81-99); Mean Platelet Vol. 11.1 fl (6.2-12.0); Monocyte# 0.52 X10^3/uL; Monocyte% 8.1 % (0-10); NRBC Flagged by Analyzer 0 % (0-5); Platelet Count 251 K/mm3 (150-450); RBC Distribution Width CV 13.3 % (11.6-14.6); RBC Distribution Width SD 47.3 fl (35.1-43.9); White Blood Count 6.4 K/mm3 (4.4-11.0)
[2024-02-04 12:35] LABS: ALB/GLOB Ratio 0.7 RATIO (0.9-2.4); AST(SGOT) 26 U/L (15-37); Alanine Aminotransfer ALT/SGPT 22 U/L (13-56); Albumin, Serum 3.3 g/dL (3.2-5.0); Alkaline Phosphatase 49 U/L (45-117); Anion Gap 7 (5-15); BUN 39 mg/dL (7-18); Calcium,Total 9.1 mg/dL (8.5-10.1); Chloride 108 mmol/L (98-107); EST Glomerular Filtration Rate 42 mL/min (>60); Est Glom Filt Rate - Afr Amer 51 mL/min (>60); Estimated Creatinine Clearance 41.48 ml/min; Globulin 4.6 g/dL (2.2-4.2); Glucose 247 mg/dL (74-106); Potassium 4.8 mmol/L (3.5-5.1); Protein, Total 7.9 g/dL (6.4-8.2); Sodium Level 138 mmol/L (136-145); Troponin-I HS 42 pg/mL (3.0-54.0)
--- NOTE | 2024-02-04 13:35 | CT_ITS ---
We are attempting to reach an attending provider to discuss findings. An addendum with communication details will be sent when the communication is complete. HISTORY: Tachycardia, hypoxia evaluate for PE. TECHNIQUE: CT angiogram of the chest was performed after the intravenous administration of 100mL Isovue-370. Post-processing of the angiographic images was performed with multiplanar reformation and 3D reconstruction. Individualized dose optimization techniques were used for this CT. 1181 images. COMPARISON: XR same day, CTA 12/18/2020. FINDINGS: CENTRAL AIRWAYS: Patent. LUNGS: Chronic mild scarring in the right lower lobe medially. PLEURA: No pneumothorax or significant pleural effusion. HEART/PERICARDIUM: Heart within normal limits in size with mild right chamber enlargement. No pericardial effusion. PULMONARY ARTERIES: Large filling defects in the distal right and left main pulmonary arteries with extension into all lobar, multiple segmental, and subsegmental branches. AORTA/VESSELS: No thoracic aortic aneurysm or dissection flap. MEDIASTINUM/SELENE: No pathologically enlarged lymph nodes. OSSEOUS STRUCTURES: Degenerative change. Chronic mild T11 compression fracture. UPPER ABDOMEN: Unremarkable. CT/CTA Chest W/WO Contrast IMPRESSION: Extensive bilateral pulmonary emboli with concern for right heart strain. Electronically Signed: Dolly Baker MD at 13:59 EDT ,
--- NOTE | 2024-02-04 13:59 | PCM.HP.STD ---
HPI - General General Date of Admission: 02/04/24 Date of Service: 02/04/24 Chief Complaint: Worsening shortness of breath HPI Narrative TARIK PRIEST, is a 78 F who presented to [facility] ED on 02/04/2024 with worsening shortness of breath. Patient reported progressive worsening shortness of breath for the past few months. She also notes bilateral leg swelling during that time frame. Swelling is worse in the left leg. Notes that she experienced a fall at home about 4 months ago and has been fairly immobile since then. On arrival to the ED was found to be hypoxic requiring 4 L nasal cannula to maintain oxygen saturations in the low 90s. Does not wear oxygen at home. CTA chest showed extensive bilateral pulmonary emboli with concern for right heart strain. Dr. Parikh discussed with Dr. Singh who noted that patient may be a candidate for pulmonary thrombectomy. Hospitalist was contacted for admission with plan for vascular surgery consult. I saw the patient at bedside in the ED, was present. Patient was sitting up comfortably in bed, conversing normally, in no acute distress. She was breathing comfortably on 4 L nasal cannula with oxygen saturations in the low to mid 90s. She denied any shortness of breath at rest currently. Denied any fevers or chills. Denied any palpitations. Stated that for the past few days she has felt like she might pass out when walking around. No prior history of clots. No other acute concerns at this time. [facility] Medical History (Updated 02/04/24 @ 15:[address] Nishant Tijerina, DO) Atrial fibrillation Hypercholesteremia Diabetes Hypothyroid Home Medications ?Medication ?Instructions ?Recorded ?Last Taken ?Type fenofibrate 160 mg tablet 160 mg PO DAILY 12/18/20 02/04/24 History ascorbic acid (vitamin C) 100 mg 100 mg PO QDAY 01/24/24 02/04/24 History tablet aspirin 325 mg tablet 325 mg PO QDAY 01/24/24 02/04/24 History enalapril maleate 20 mg tablet 20 mg PO QDAY 01/24/24 02/04/24 History ergocalciferol (vitamin D2) 1,250 1,250 mcg PO MO 01/24/24 02/03/24 History mcg (50,000 unit) capsule levothyroxine 175 mcg tablet 175 mcg PO QDAY 01/24/24 02/04/24 History (Synthroid) multivitamin 1 tab PO QAM 01/24/24 02/04/24 History sertraline 100 mg tablet 100 mg PO QDAY 01/24/24 02/04/24 History furosemide 20 mg tablet 20 mg PO DAILY 02/04/24 02/04/24 History insulin NPH isoph U-100 human 100 25 unit subcut BID 02/04/24 02/04/24 History unit/mL subcutaneous suspension (Novolin N NPH U-100 Insulin isophane) metoprolol tartrate 25 mg tablet 25 mg PO BID 02/04/24 02/04/24 History zinc gluconate 100 mg tablet 100 mg PO DAILY 02/04/24 02/04/24 History Allergy/AdvReac Type Severity Reaction Status Date / Time prednisone Allergy Mild unknown Verified 02/04/24 11:08 Surgical History H/O tubal ligation Social History Smoking Status: Never smoker Electronic Cigarette Use: not used alcohol intake: never substance use type: does not use ROS Constitutional Constitutional: Reports fatigue and weakness; Denies chills or fever(s) Eyes Eyes: Denies change in vision Cardiovascular Cardiovascular: Reports dyspnea on exertion, edema and lightheadedness; Denies chest pain, palpitations, rapid heart rate or syncope Respiratory/Chest Respiratory/Chest: Reports shortness of breath at rest and shortness of breath with exertion; Denies cough, productive cough or wheezing Gastrointestinal Gastrointestinal: Denies abdominal pain Musculoskeletal Musculoskeletal: Denies arthralgias, back pain or myalgias Neurologic Neurologic: Denies dizziness, focal weakness or headache(s) Vital Signs Vital Signs Vital Signs: 02/04/24 11:08 02/04/24 11:12 02/04/24 11:13 Temperature 98.6 F 98.4 F Temperature Source Oral Oral Pulse Rate 101 H 98 Respiratory Rate 18 24 H Respiratory Effort Short of Breath Respiratory Depth Normal Respiratory Pattern Tachypnea Blood Pressure 168/84 H 168/84 H Blood Pressure Mean 112 112 Pulse Ox 94 94 Oxygen Delivery Method Nasal Cannula Nasal Cannula Nasal Cannula Oxygen Flow Rate (L/min) 4 2 2 02/04/24 11:48 02/04/24 13:07 Temperature Temperature Source Pulse Rate 92 Respiratory Rate 30 H Respiratory Effort Respiratory Depth Respiratory Pattern Blood Pressure 127/110 H Blood Pressure Mean 115 Pulse Ox 96 95 Oxygen Delivery Method Nasal Cannula Nasal Cannula Oxygen Flow Rate (L/min) 2 4 Weight Weight: 98.7 kg Body Mass Index (BMI) 35.6 Physical Exam Const alert, oriented x3 and no apparent distress Constitutional Narrative: Pleasant elderly female, obese, mildly fatigued appearing, otherwise sitting up comfortably in bed, conversing normally, no acute distress. General Appearance: cooperative and comfortable HEENT normocephalic, head/scalp atraumatic, hearing grossly normal bilaterally, nasal mucous membranes and turbinates normal and moist oral mucous membranes Eyes PERRL, EOMs intact bilaterally and conjunctivae normal Neck full ROM Chest inspection of chest normal Resp normal respiratory effort and no use of accessory muscles Resp Narrative: Breathing comfortably on 4 L nasal cannula at rest. Mildly decreased breath sounds bilaterally throughout. No wheezing or crackles noted. Cardio no murmurs and peripheral pulses 2+ throughout Cardio Narrative: Tachycardic, regular rhythm. GI normal to inspection, nondistended, normoactive bowel sounds, soft to palpation, non-tender and non-distended Back/Spine normal ROM Extremity full ROM Extremity Narrative: +2-3 pitting edema noted in left lower extremity up to the mid thigh with mild tenderness to palpation. +1-2 pitting edema noted in right lower extremity up to the knee. No erythema noted bilaterally. Skin no rashes or lesions noted Neuro moves all extremities and no focal motor deficits Speech: speech normal Psych mental status grossly normal Results Lab / Micro Data 02/04/24 11:49 02/04/24 11:49 Labs: Laboratory Results - last 24 hr 02/04/24 11:49: WBC 6.4, RBC 3.80 L, Hgb 11.8 L, Hct 36.9 L, MCV 97.1, MCH 31.1, MCHC 32.0, RDW Std Deviation 47.3 H, RDW Coeff of Alejandra 13.3, Plt Count 251, MPV 11.1, Immature Gran % (Auto) 0.500, Neut % (Auto) 78.0 H, Lymph % (Auto) 11.5 L, Teller % (Auto) 8.1, Eos % (Auto) 1.6, Baso % (Auto) 0.3, Absolute Neuts (auto) 5.0, Absolute Lymphs (auto) 0.74 L, Nucleated RBC % 0, Sodium 138, Potassium 4.8, Chloride 108 H, Carbon Dioxide 23.0, Anion Gap 7, BUN 39 H, Creatinine 1.30 H, Estim Creat Clear Calc 41.48, Est GFR (MDRD) Af Amer 51 L, Est GFR (MDRD) Non-Af 42 L, BUN/Creatinine Ratio 30.0 H, Glucose 247 H, Lactic Acid 2.0, Calcium 9.1, Total Bilirubin 0.30, AST 26, ALT 22, Alkaline Phosphatase 49, Troponin I High Sens 42, Total Protein 7.9, Albumin 3.3, Globulin 4.6 H, Albumin/Globulin Ratio 0.7 L Micro: Microbiology 02/04/24 11:49 Mucosa - Nasopharyngeal SARS-CoV-2, Influenza & RSV (PCR) - Final Rhythm Strip Rhythm Strip: Sinus Rhythm (99) Rate: 99 (Complexes wide.) Ectopy: None Imaging Radiology Impression Chest X-Ray 02/04/24 11:30 IMPRESSION: No acute cardiopulmonary process identified. Electronically Signed: Dolly Baker MD at 12:15 EDT , Assessment & Plan Assessment/Plan (1) Bilateral pulmonary embolism: (2) Hypoxemia: (3) Bilateral edema of lower extremity: PLAN: Plan Patient is a 78-year-old female who presented to [facility] ED on 02/04/2024 with worsening shortness of breath. 1. Bilateral PE, intermediate risk, with suspected DVT ? Admit under inpatient status to PCU. Vascular surgery consulted. CTA chest showed extensive bilateral pulmonary emboli with concern for right heart strain. New hypoxia requiring 4 L nasal cannula on admit. Bilateral LE swelling noted, worse on left. EKG with no ischemic changes noted. Will treat with heparin drip for now. Echo and LE duplex ultrasound ordered. N.p.o. at midnight in case of need for vascular surgery procedure tomorrow. 2. Acute debility ? PT/OT/case management consulted. Patient lives at home with . Reports decent functional status prior to 4 months ago when she had a fall; has not been very mobile since then. Will likely need SNF versus home with home health care on discharge. 3. CKD stage III ? Creatinine 1.30 on admit, baseline 1.2-1.3. Did receive IV contrast with CTA chest but given PE with concern for right heart strain, will hold on IV fluid resuscitation for now. Monitor daily BMP and urine output. 4. Mild chronic anemia ? Hemoglobin 11.8 on admit, baseline around 12. Monitor daily CBC. Chronic medical conditions: ? Obesity: BMI 35 on admit. Complicates hospital course, care and prognosis. ? Type 2 diabetes mellitus with hyperglycemia: Home regimen of insulin NPH 25 units twice daily. Blood glucose 247 on admit. A1c ordered. Will treat with NPH 18 units twice daily and sliding scale insulin with meals for now, adjust as needed. ? Paroxysmal A-fib, hypertension, hyperlipidemia: Sinus tachycardia noted on admission. Is on aspirin 325 mg at home, not on anticoagulation due to fall risk. Will hold home Lopressor and enalapril for now. Low-dose Lasix was started for lower extremity swelling about 1 month ago, will hold this as well. Continue home fenofibrate. ? Hypothyroidism: Continue home Synthroid. ? Anxiety/depression: Stable. Continue home sertraline. DVT prophylaxis: Not indicated, on heparin drip CODE STATUS: DNR CCA, DNI. Confirmed with patient on admission. Expected disposition: TBD Total clinical time spent by myself addressing the patient's medical issues, reviewing all the data, and collaborating with patient's care team: 75 minutes. Charges/Coding Visit Charges Inpatient E&M: 39292 Init Hosp L3
--- NOTE | 2024-02-04 14:05 | VDLE_ITS ---
Reason For Study: BLE SWELLING RIGHT LEFT GSV is normal. GSV is normal. CFV is compressible, spontaneous, phasic, CFV is compressible, spontaneous, phasic, competent and demonstrates normal competent, and demonstrates normal augmentation. augmentation. FV is compressible, spontaneous, phasic, FV is compressible, spontaneous, phasic, competent and demonstrates normal competent and demonstrates normal augmentation. augmentation. POP V is compressible, spontaneous, phasic, POP V is compressible, spontaneous, phasic, competent and demonstrates normal competent and demonstrates normal augmentation. augmentation. PTV is compressible. T/P Trunk is compressible. RT PerV is compressible. PTV is compressible. Acute deep vein thrombosis is noted in the LT PerV is compressible. T/P Trunk. It is dilated and NONCOMPRESSIBLE. Procedure This is a venous duplex using B-mode, color flow and spectral Doppler. Exam performed portable in patient room. A preliminary report was called and/or faxed to [facility]. VL/Venous Duplex US - Oscar Extrem Interpretation Summary Acute deep vein thrombosis is noted in the right tibio-peroneal trunk. Deep veins of the left lower extremity are patent and compressible segmentally. There is no evidence of left lower extremity deep vein thrombosis. The bilateral great saphenous vei ns appear patent and compressible segmentally. Ordering Physician: Nishant Tijerina Referring Physician: Martín Linton Performed By: Noreen Oliveira, ZEYAD, RVT
--- NOTE | 2024-02-04 14:05 | ECHOCS_ITS ---
Reason For Study: Emboli Procedure This was a 2D Doppler, Color Flow transthoracic echocardiogram. The study was technically difficult. Contrast injection was performed. Exam performed portable in patient room. Left Ventricle Normal LV size. The estimated ejection fraction is 60 %. Diastolic function is indeterminate. No regional wall motion abnormalities noted. Right Ventricle Normal RV size. Normal systolic function. Atria The left and right atria are normal. No doppler evidence for ASD. Mitral Valve There is no mitral valve stenosis. No mitral valve insufficiency. Tricuspid Valve There is no tricuspid stenosis. Mild tricuspid valve insufficiency. Pulmonary artery systolic pressure is 70 mmHg. Aortic Valve Trisinus/trileaflet aortic valve. There is no aortic stenosis. No aortic valve insufficiency. Pulmonic Valve There is no pulmonic valvular stenosis. No pulmonic valve insufficiency. Great Vessels Normal aortic root. Pericardium/Pleural No pericardial effusion. Medication Diluted definity 2ml given slow IV push to enhance endocardial definition. MMode/2D Measurements & Calculations LVIDd: 3.8 cm IVSd: 1.5 cm LVOT diam: 2.0 cm LVIDs: 2.9 cm LVPWd: 1.5 cm RVDd: 4.0 cm FS: 24.9 % LVOT area: 3.0 cm2 Ao root diam: 3.2 cm LAV(MOD-bp): 40.2 ml Ao sinus diam: 3.2 cm LAV(MOD-bp) Indexed: 19.6 ml/m2 LAV(MOD-sp2): 43.0 ml LAV(MOD-sp4): 37.[address] Junction: 2.5 cm LA dimension(2D): 3.5 cm LA A4 area: 15.6 cm2 RA A4 area: 15.1 cm2 Time Measurements MV dec time: 0.17 sec Doppler Measurements & Calculations MV E max sid: 43.7 cm/sec Lat Peak E' Sid: 9.3 cm/sec Med Peak E' Sid: 6.9 cm/sec MV A max sid: 104.3 cm/sec E/E' lat: 4.7 E/E' med: 6.3 MV E/A: 0.42 MV V2 max: 107.1 cm/sec Ao V2 max: 131.9 cm/sec MV max P.6 mmHg MV dec slope: 261.7 cm/sec2 Ao max P.0 mmHg MV V2 mean: 59.7 cm/sec MV mean P.7 mmHg RAISA(V,D): 2.5 cm2 MV V2 VTI: 18.4 cm MVA(VTI): 3.3 cm2 LV V1 max: 109.2 cm/sec SV(LVOT): 61.7 ml PA V2 max: 64.8 cm/sec LV V1 max P.8 mmHg LV V1 mean P.6 mmHg LV V1 mean: 75.1 cm/sec LV V1 VTI: 20.4 cm TR max sid: 407.4 cm/sec TR max P.4 mmHg ECHO/Echo Complete W/ Contrast Interpretation Summary The estimated ejection fraction is 60 %. Diastolic function is indeterminate. Pulmonary artery systolic pressure is 70 mmHg. Ordering Physician: Nishant Tijerina Performed By: Carlos Waggoner RCS
--- NOTE | 2024-02-04 14:06 | NURSING ---
PCU MOSTELLER BILATERAL PULMONARY EMBOLUS, RESP FAILURE WITH HYPOXIA
[2024-02-04 14:10] LABS: International Normalized Ratio 1.2; Partial Thromboplast Time 24.5 Seconds (24.1-36.2); Prothrombin Time (Protime)PT. 15.1 SECONDS (11.7-14.9)
[2024-02-04 14:17] LABS: BNP,B-Type NATRIURETIC PEPTIDE 104.9 pg/mL (0-100)
[2024-02-04] MEDS: HEPARIN/D5w 25,000 UNITS 25,000 UNITS/250 ML IV.SOLN. 14 UNITS CONT INF (14:28)
[2024-02-04] MEDS: Heparin Injection (Vial) 5,000 UNIT/ML VIAL 7500 UNIT IV (14:28)
[2024-02-04 15:57] LABS: Reflex Lactate? Y
[2024-02-04 16:53] LABS: Lactic Acid 1.1 mmol/L (0.4-1.9)
--- NOTE | 2024-02-04 17:19 | EX.PCM.CON.S ---
Assessment & Plan Assessment/Plan (1) Bilateral pulmonary embolism: PLAN: Patient has PE with significant burden in the bilateral main pulmonary arteries with possible right heart strain. Troponin, BNP, lactic negative. At present, she is hemodynamically stable and resting comfortably on 4 L O2 maintaining saturation greater than 90% without any shortness of breath or chest pain. Echo is pending to further evaluate for right heart strain and pending these results may further consider thrombectomy. Will also consult pulmonary Dr. Anne for his input. Will keep her n.p.o. after midnight for now and reassess in the morning. HPI Consult Data Date of Consult: 02/04/24 HPI Narrative HPI Narrative: TARIK PRIEST, is a 78 F who presented to the [facility] ER this afternoon with sudden onset of severe shortness of breath. She was reportedly 82% on room air. EKG showed sinus tachycardia. CTA revealed bilateral PE with evidence of possible right heart strain. Initial troponin was 42, lactic 1.1, BNP 104.5. She was admitted on a heparin drip for further management and consideration for possible thrombectomy. I saw patient this afternoon at bedside with caregiver present. She is on 4 L O2 via NC. She reports feeling much better with the supplemental oxygen, she is without any shortness of breath or chest pain at rest the time of my exam. She reports that while she had noticed possibly mild shortness of breath intermittently throughout the last few days it got significantly worse suddenly today. She reports a fall few months ago in which she injured her left arm and says she has been generally less active since then, but otherwise no significant illness or injury leading up to this. She denies any prior history of VTE. She reports possible recent diagnosis of paroxysmal A-fib, but not currently anticoagulated seemingly due to fall risk. She reports she takes aspirin only when she feels her heart fluttering. She seems to be a poor historian. [facility] Medical History (Updated 02/04/24 @ 16:02 by Moni Harris) Depression Non-smoker Pulmonary embolism Myocardial infarct TIA (transient ischemic attack) Atrial fibrillation Hypercholesteremia Diabetes Hypothyroid Home Medications ?Medication ?Instructions ?Recorded ?Last Taken ?Type fenofibrate 160 mg tablet 160 mg PO DAILY 12/18/20 02/04/24 History ascorbic acid (vitamin C) 100 mg 100 mg PO QDAY 01/24/24 02/04/24 History tablet aspirin 325 mg tablet 325 mg PO QDAY 01/24/24 02/04/24 History enalapril maleate 20 mg tablet 20 mg PO QDAY 01/24/24 02/04/24 History ergocalciferol (vitamin D2) 1,250 1,250 mcg PO MO 01/24/24 02/03/24 History mcg (50,000 unit) capsule levothyroxine 175 mcg tablet 175 mcg PO QDAY 01/24/24 02/04/24 History (Synthroid) multivitamin 1 tab PO QAM 01/24/24 02/04/24 History sertraline 100 mg tablet 100 mg PO QDAY 01/24/24 02/04/24 History furosemide 20 mg tablet 20 mg PO DAILY 02/04/24 02/04/24 History insulin NPH isoph U-100 human 100 25 unit subcut BID 02/04/24 02/04/24 History unit/mL subcutaneous suspension (Novolin N NPH U-100 Insulin isophane) metoprolol tartrate 25 mg tablet 25 mg PO BID 02/04/24 02/04/24 History zinc gluconate 100 mg tablet 100 mg PO DAILY 02/04/24 02/04/24 History Allergy/AdvReac Type Severity Reaction Status Date / Time prednisone Allergy Mild unknown Verified 02/04/24 11:08 Surgical History H/O tubal ligation Social History Smoking Status: Never smoker Electronic Cigarette Use: not used alcohol intake: never substance use type: does not use Physical Exam Const alert, oriented x3 and no apparent distress General Appearance: cooperative and comfortable HEENT normocephalic, head/scalp atraumatic, hearing grossly normal bilaterally and external ears normal Head and Scalp: normal to inspection, normocephalic and atraumatic Eyes EOMs intact bilaterally General Eye: normal appearance of both eyes Neck General: normal visual inspection and trachea midline Resp normal respiratory effort, no retractions and no use of accessory muscles Effort and Inspection: able to speak in complete sentences Cardio regular rate and regular rhythm Neuro CN's II-XII intact bilaterally, moves all extremities and no focal motor deficits Speech: speech normal Psych mental status grossly normal Appearance: grossly normal Attitude: calm and engaged Mood & Affect: euthymic mood Lab / Micro Data 02/04/24 11:49 02/04/24 11:49 Labs: Laboratory Results - last 24 hr 02/04/24 11:49: WBC 6.4, RBC 3.80 L, Hgb 11.8 L, Hct 36.9 L, MCV 97.1, MCH 31.1, MCHC 32.0, RDW Std Deviation 47.3 H, RDW Coeff of Alejandra 13.3, Plt Count 251, MPV 11.1, Immature Gran % (Auto) 0.500, Neut % (Auto) 78.0 H, Lymph % (Auto) 11.5 L, Pleas[place] % (Auto) 8.1, Eos % (Auto) 1.6, Baso % (Auto) 0.3, Absolute Neuts (auto) 5.0, Absolute Lymphs (auto) 0.74 L, Nucleated RBC % 0, PT 15.1 H, INR 1.2, APTT 24.5, Sodium 138, Potassium 4.8, Chloride 108 H, Carbon Dioxide 23.0, Anion Gap 7, BUN 39 H, Creatinine 1.30 H, Estim Creat Clear Calc 41.48, Est GFR (MDRD) Af Amer 51 L, Est GFR (MDRD) Non-Af 42 L, BUN/Creatinine Ratio 30.0 H, Glucose 247 H, Lactic Acid 2.0, Calcium 9.1, Total Bilirubin 0.30, AST 26, ALT 22, Alkaline Phosphatase 49, Troponin I High Sens 42, B-Natriuretic Peptide 104.9 H, Total Protein 7.9, Albumin 3.3, Globulin 4.6 H, Albumin/Globulin Ratio 0.7 L 02/04/24 16:18: Lactic Acid 1.1 Micro: Microbiology 02/04/24 11:49 Mucosa - Nasopharyngeal SARS-CoV-2, Influenza & RSV (PCR) - Final Rhythm Strip Rhythm Strip: Sinus Rhythm (99) Rate: 99 (Complexes wide.) Ectopy: None Imaging Radiology Impression Chest X-Ray 02/04/24 11:30 IMPRESSION: No acute cardiopulmonary process identified. Electronically Signed: Dolly Baker MD at 12:15 EDT Reading Location ID and State: [facility] / [place] Tel , Service support , Chest CTA 02/04/24 13:35 IMPRESSION: Extensive bilateral pulmonary emboli with concern for right heart strain. Electronically Signed: Dolly Baker MD at 13:59 EDT , ADDENDUM: 02/04/24 1411 IMPRESSION: Extensive bilateral pulmonary emboli with concern for right heart strain. N.B. : The above Results were Read Back by Dolly Baker MD to Casimiro Parikh MD, and understanding confirmed on 02/04/2024 14:04:17 (ET). Electronically Signed: Dolly Baker MD at 13:59 EDT , Charges/Coding Visit Charges Inpatient E&M: 16182 Init Hosp L2
[2024-02-04 17:48] LABS: Bedside Glucose 117 mg/dL (74-106)
[2024-02-04] MEDS: Acetaminophen 325 MG Tablet 650 MG PO (20:22)
[2024-02-04 20:56] LABS: Partial Thromboplast Time 235.1 Seconds (24.1-36.2)
--- NOTE | 2024-02-04 22:01 | PCM.HOSP.N ---
Hospitalist Note Patient with vaginal itching, noting to staff consistent with candidal infection specifically requesting monistat application. UA also ordered. Will add monistat x 1 now.
[2024-02-04 22:04] LABS: Bacteria 0 SEEN /hpf (None Seen); Mucous, Urine 0 SEEN /hpf (<or=2+)
[2024-02-04 22:06] LABS: Color, Urine Yellow (Yellow); Glucose, Dipstick Normal (Normal); Ketone-Dipstick Negative (Negative); Leukocyte Esterase-Dipstick Negative /ul (Negative); Nitrite-Dipstick Negative (Negative); Occult Blood-Urine 150 /ul (Negative); Protein-Dipstick 15 mg/dl (Negative); Specific Gravity, Urine 1.005 (1.002-1.030); Urine Bilirubin Dipstick Negative (Negative); Urine Clarity Clear (Clear); Urine Urobilinogen Normal (Normal)
[2024-02-04 22:24] LABS: Red Blood Cells-Urine 5-10 SEEN /hpf (0-5); White Blood Cells 0-5 SEEN /hpf (0-5)
[2024-02-04 22:25] LABS: Squamous Epithelial Cells - UA 0-5 SEEN /hpf (5-10)
[2024-02-04] MEDS: Insulin NPH Human 100 UNITS/ML PEN 18 UNITS SC (22:26)
[2024-02-04] MEDS: Miconazole-7 Nitrate Cream 1 APPLIC VAGINAL (22:26)
[2024-02-04] MEDS: Insulin Lispro 100 UNIT/ML INSULN.PEN SC (22:29)
[2024-02-05] VITALS (7 sets, daily range): BP systolic 127–149; BP diastolic 86–119; PULSE 82–97; RESP 16–18; TEMP 36–36.6; O2SAT 95–100
[2024-02-05 00:23] LABS: Bedside Glucose 229 mg/dL (74-106)
--- NOTE | 2024-02-05 05:55 | EKG12_ITS ---
Test Reason : AM EKG Blood Pressure : / mmHG Vent. Rate : 085 BPM Atrial Rate : 085 BPM P-R Int : 148 ms QRS Dur : 142 ms QT Int : 460 ms P-R-T Axes : 062 -50 -20 degrees QTc Int : 547 ms Normal sinus rhythm Left axis deviation Non-specific intra-ventricular conduction block of the RBBB type Minimal voltage criteria for LVH, may be normal variant ( Avni product ) T wave abnormality, consider anterior ischemia Abnormal ECG Confirmed by IGNACIO GARCÍA, GORAN ([id number]), image editor ABRAM HINKLE ([id number]) on 02/06/2024 1:26:06 PM Referred By: Confirmed By:GORAN PIERRE MD
[2024-02-05 06:13] LABS: Hematocrit 36.9 % (37-47); Hemoglobin 11.9 g/dL (12.0-15.0); Mean Corp Hgb Conc 32.2 g/dL (32-36); Mean Corpuscular Hgb 31.2 pg (27.0-32.0); Mean Corpuscular Volume 96.9 fL (81-99); Mean Platelet Vol. 10.7 fl (6.2-12.0); Platelet Count 255 K/mm3 (150-450); RBC Distribution Width CV 13.2 % (11.6-14.6); RBC Distribution Width SD 46.9 fl (35.1-43.9); Red Blood Count 3.81 M/mm3 (4.2-5.4); White Blood Count 5.6 K/mm3 (4.4-11.0)
[2024-02-05 06:23] LABS: Partial Thromboplast Time 90.4 Seconds (24.1-36.2)
[2024-02-05 06:31] LABS: Anion Gap 4 (5-15); BUN 33 mg/dL (7-18); BUN/Creat Ratio 29.2 RATIO (10-20); Calcium,Total 9.4 mg/dL (8.5-10.1); Chloride 110 mmol/L (98-107); Creatinine, Serum 1.13 mg/dL (0.55-1.02); EST Glomerular Filtration Rate 50 mL/min (>60); Est Glom Filt Rate - Afr Amer 60 mL/min (>60); Estimated Creatinine Clearance 46.02 ml/min; Glucose 87 mg/dL (74-106); Sodium Level 139 mmol/L (136-145)
[2024-02-05] MEDS: Levothyroxine 175 MCG Tablet PO (06:37)
[2024-02-05 07:02] LABS: Bedside Glucose 88 mg/dL (74-106)
[2024-02-05 08:15] LABS: Hemoglobin A1c 7.1 % (3.8-5.6)
--- NOTE | 2024-02-05 08:48 | PCM.PN.HOSP ---
Reason for Visit Reason for Visit: Diagnoses Other pulmonary embolism without acute cor pulmonale (02/04/24) Hypoxemia (02/04/24) Localized edema (02/04/24) Objective Data Objective Data Vital Signs: Vital Signs Temp Pulse Resp BP Pulse Ox O2 Del Method O2 Flow Rate 97.8 F 96 16 127/98 H 100 Nasal Cannula 4 02/05/24 04:22 02/05/24 04:22 02/05/24 04:22 02/05/24 04:22 02/05/24 04:30 02/05/24 04:30 02/05/24 04:30 Oxygen Flow Rate (L/min) 4 Oxygen Delivery Method Nasal Cannula Weight: 203 lb 0.732 oz Body Mass Index (BMI) 33.7 Intake & Output: Intake and Output for Last 24 Hours 02/03/24 02/04/24 02/05/24 23:59 23:59 23:59 Intake Total 81.22 / 81.22 Balance 81.22 / 81.22 Lab / Micro Data 02/05/24 05:14 02/05/24 05:14 Labs: Laboratory Results - last 24 hr 02/04/24 11:49: WBC 6.4, RBC 3.80 L, Hgb 11.8 L, Hct 36.9 L, MCV 97.1, MCH 31.1, MCHC 32.0, RDW Std Deviation 47.3 H, RDW Coeff of Alejandra 13.3, Plt Count 251, MPV 11.1, Immature Gran % (Auto) 0.500, Neut % (Auto) 78.0 H, Lymph % (Auto) 11.5 L, [place] % (Auto) 8.1, Eos % (Auto) 1.6, Baso % (Auto) 0.3, Absolute Neuts (auto) 5.0, Absolute Lymphs (auto) 0.74 L, Nucleated RBC % 0, PT 15.1 H, INR 1.2, APTT 24.5, Sodium 138, Potassium 4.8, Chloride 108 H, Carbon Dioxide 23.0, Anion Gap 7, BUN 39 H, Creatinine 1.30 H, Estim Creat Clear Calc 41.48, Est GFR (MDRD) Af Amer 51 L, Est GFR (MDRD) Non-Af 42 L, BUN/Creatinine Ratio 30.0 H, Glucose 247 H, Lactic Acid 2.0, Calcium 9.1, Total Bilirubin 0.30, AST 26, ALT 22, Alkaline Phosphatase 49, Troponin I High Sens 42, B-Natriuretic Peptide 104.9 H, Total Protein 7.9, Albumin 3.3, Globulin 4.6 H, Albumin/Globulin Ratio 0.7 L 02/04/24 16:18: Lactic Acid 1.1 02/04/24 17:31: POC Glucose 117 H 02/04/24 20:30: APTT 235.1 H* 02/04/24 21:20: Urine Color Yellow, Urine Clarity Clear, Urine pH 7.0, Ur Specific [place] 1.005, Urine Protein 15 H, Urine Glucose (UA) Normal, Urine Ketones Negative, Urine Occult Blood 150 H, Urine Nitrite Negative, Urine Bilirubin Negative, Urine Urobilinogen Normal, Ur Leukocyte Esterase Negative, Urine RBC 5-10 SEEN, Urine WBC 0-5 SEEN, Ur Squamous Epith Cells 0-5 SEEN, Urine Bacteria 0 SEEN, Urine Mucus 0 SEEN 02/04/24 22:25: POC Glucose 229 H 02/05/24 05:14: WBC 5.6, RBC 3.81 L, Hgb 11.9 L, Hct 36.9 L, MCV 96.9, MCH 31.2, MCHC 32.2, RDW Std Deviation 46.9 H, RDW Coeff of Alejandra 13.2, Plt Count 255, MPV 10.7, APTT 90.4 H*, Sodium 139, Potassium 4.0, Chloride 110 H, Carbon Dioxide 25.0, Anion Gap 4 L, BUN 33 H, Creatinine 1.13 H, Estim Creat Clear Calc 46.02, Est GFR (MDRD) Af Amer 60, Est GFR (MDRD) Non-Af 50 L, BUN/Creatinine Ratio 29.2 H, Glucose 87, Hemoglobin A1c 7.1 H, Calcium 9.4 02/05/24 06:32: POC Glucose 88 Micro: Microbiology 02/04/24 11:49 Mucosa - Nasopharyngeal SARS-CoV-2, Influenza & RSV (PCR) - Final Radiography Diagnostic Testing: Radiology Impression Chest X-Ray 02/04/24 11:30 IMPRESSION: No acute cardiopulmonary process identified. Electronically Signed: Dolly Baker MD at 12:15 EDT Reading Location ID and State: [facility] / [place] Tel , Service support , Chest CTA 02/04/24 13:35 IMPRESSION: Extensive bilateral pulmonary emboli with concern for right heart strain. Electronically Signed: Dolly Baker MD at 13:59 EDT Reading Location ID and State: [facility] / [place] Tel , Service support , ADDENDUM: 02/04/24 1411 IMPRESSION: Extensive bilateral pulmonary emboli with concern for right heart strain. N.B. : The above Results were Read Back by Dolly Baker MD to Casimiro Parikh MD, and understanding confirmed on 02/04/2024 14:04:17 (ET). Electronically Signed: Dolly Baker MD at 13:59 EDT Reading Location ID and State: [facility] / [place] Tel , Service support , Rhythm Strip Rhythm Strip: Sinus Rhythm (99) Rate: 99 (Complexes wide.) Ectopy: None Physical Exam Narrative Seen and examined. Admitted for sudden onset of severe shortness of breath, dyspnea at rest. Denies chest pain tightness or congestion. No symptoms of acute URI. No cough Physical exam General: Alert, Oriented x3, Cooperative HEENT: Atraumatic, PERRLA, EOMI, Normocephalic Oral: Oral mucosa dry no Gingival or Mucosal Lesions/ Ulcerations Neck: Supple, No JVD, Negative Carotid Bruits Chest wall/Lungs: Air entry diminished in bilateral lung bases. No crepitation/rhonchi on 4 L of oxygen Cardiovascular: Sinus rhythm, Normal S1, Normal S2, systolic murmur LLSB, TR Abdomen: Bowel Sounds Present, Soft, Non Tender, Non-Distended : No dysuria. No renal angle tenderness. No suprapubic tenderness. Extremities: No edema, Capillary Refill Less than 3 Seconds Skin: No rashes, No breakdown Musculoskeletal: No Tenderness to Palpation of Joints or Extremities Neurological: Cranial nerves II-XII grossly intact, DTR 2+/4. No acute focal neurological deficit. Psych/Mental Status: Flat affect Assessment & Plan Assessment/Plan (1) Bilateral pulmonary embolism: (2) Hypoxemia: (3) Bilateral edema of lower extremity: PLAN: Plan Patient is a 78-year-old female who presented to [facility] ED on 02/04/2024 with worsening shortness of breath. Hypoxia pulse ox 82% on room air. Currently on 4 L of oxygen. Increased falls recently 1. Bilateral diffuse extensive pulmonary emboli with suspected DVT: ? Admit under inpatient status to PCU. Vascular surgery consulted. CTA chest showed extensive bilateral pulmonary emboli with concern for right heart strain. It is reported as a large filling defect in distal right and left main pulmonary arteries with extension into all lobar, multiple segmental and subsegmental branches. Mild right chamber of heart enlargement. No pericardial effusion. New hypoxia requiring 4 L nasal cannula on admit. Bilateral LE swelling noted, worse on left. EKG with no ischemic changes noted. Will treat with heparin drip for now. 02/04: Patient is getting echo. Complain her left leg was more swollen than right for years. LE duplex ultrasound ordered. Patient being evaluated by vascular surgeon. Hose Builder also consulted. 2. Acute debility ? PT/OT/case management consulted. Patient lives at home with . Reports decent functional status prior to 4 months ago when she had a fall; has not been very mobile since then. Need evaluation for SNF versus home with home health care on discharge. 3. CKD stage III ? Creatinine 1.30 on admit, baseline 1.2-1.3. Did receive IV contrast with CTA chest but given PE with concern for right heart strain, 02/04: BUN/creatinine improving. BUN/creatinine 33/1.13. 4. Mild chronic anemia ? Hemoglobin 11.8 on admit, baseline around 12. Monitor daily CBC. 02/04: No acute change in CBC. Chronic medical conditions: ? Obesity: BMI 35 on admit. Complicates hospital course, care and prognosis. ? Type 2 diabetes mellitus with hyperglycemia: Home regimen of insulin NPH 25 units twice daily. Blood glucose 247 on admit. A1c ordered. Will treat with NPH 18 units twice daily and sliding scale insulin with meals for now, adjust as needed. ? Paroxysmal A-fib, hypertension, hyperlipidemia: Sinus tachycardia noted on admission. Is on aspirin 325 mg at home, not on anticoagulation due to fall risk. Will hold home Lopressor and enalapril for now. Low-dose Lasix was started for lower extremity swelling about 1 month ago, will hold this as well. Continue home fenofibrate. ? Hypothyroidism: Continue home Synthroid. ? Anxiety/depression: Stable. Continue home sertraline. DVT prophylaxis: Not indicated, on heparin drip CODE STATUS: DNR CCA, DNI. Charges/Coding Addendum Addendum: Total time of the visit including total time spent in counseling or coordination of care, (more than 50% of the total time, spent in obtaining medical information from nurses and other ancillary care providers,explaining to the patient about labs, imaging, diagnosis and management of active complex medical conditions), review of CT scan, discussion with vascular, review of labs and imaging, clinical update given to patient's is 35 minutes. Visit Charges Inpatient E&M: 60452 Subs Hosp L3
--- NOTE | 2024-02-05 09:46 | EX.PCM.CONCC ---
Assessment & Plan Assessment/Plan (1) Hypoxemia: (2) Bilateral pulmonary embolism: PLAN: Plan RECOMMENDATIONS: 1. Supplemental oxygen to maintain saturations at or above 90%. 2. Awaiting results of echocardiogram. 3. Continue weight-based heparin infusion. Okay to transition to either Eliquis or Xarelto from my perspective. 4. Perform walking oximetry study prior to consideration for discharge home. 5. Will sign off at this time. Please call with any additional questions. IMPRESSIONS: 1. Shortness of breath and hypoxemia The patient presented to the hospital with shortness of breath and hypoxemia in the setting of bilateral pulmonary emboli. There is no evidence of biochemical strain with normal BNP and troponin. The patient is hemodynamically stable on minimal supplemental O2. I do not see an urgent indication to proceed with thrombectomy. Echocardiogram is currently pending. Given the unprovoked nature of the patient's blood clots coupled with her sedentary lifestyle, she would likely be best served by lifelong anticoagulation, given the extensive nature of her blood clots. Recommend performing walking oximetry study prior to consideration for discharge home. I do anticipate that the patient will have a home-going supplemental oxygen requirement in the short-term. From my perspective, the patient can be transitioned to either Eliquis or Xarelto. 2. Obesity/chronic kidney disease/anemia/diabetes mellitus/paroxysmal atrial fibrillation/hypothyroidism Complicates care, management, recovery and prognosis. Continue home medications as indicated. This note was generated with [employer] dictation software. It may contain incorrect words, spelling, and punctuation that were not noted in checking the note before signing. HPI Consult Data Date of Consult: 02/05/24 HPI Narrative Reason for Consultation: Pulmonary emboli HPI Narrative: The patient is a 78-year-old female, with a history as outlined below, who presented to the emergency department via EMS on February 03 with reported shortness of breath. The patient denied any prior VTE history. The patient denied any recent prolonged travel. She denied any personal or family history of any hypercoagulable conditions. She has never been diagnosed with cancer. The patient readily admits that she lives a sedentary lifestyle. She denied any pre-existing lung conditions. On presentation to the emergency department, the patient was afebrile and hemodynamically stable. Laboratory evaluation revealed a normal white blood cell count. Hemoglobin was stable. Chemistry profile was notable for a creatinine of 1.3. Lactate was within normal limits. Troponin was normal at 42 with a BNP of 104. CTA chest demonstrated bilateral PE without saddle involvement. The patient was placed on a weight-based heparin infusion and admitted to the progressive care unit for further management. [facility] Medical History (Updated 02/04/24 @ 16:02 by Moni Harris) Depression Non-smoker Pulmonary embolism Myocardial infarct TIA (transient ischemic attack) Atrial fibrillation Hypercholesteremia Diabetes Hypothyroid Home Medications ?Medication ?Instructions ?Recorded ?Last Taken ?Type fenofibrate 160 mg tablet 160 mg PO DAILY 12/18/20 02/04/24 History ascorbic acid (vitamin C) 100 mg 100 mg PO QDAY 01/24/24 02/04/24 History tablet aspirin 325 mg tablet 325 mg PO QDAY 01/24/24 02/04/24 History enalapril maleate 20 mg tablet 20 mg PO QDAY 01/24/24 02/04/24 History ergocalciferol (vitamin D2) 1,250 1,250 mcg PO MO 01/24/24 02/03/24 History mcg (50,000 unit) capsule levothyroxine 175 mcg tablet 175 mcg PO QDAY 01/24/24 02/04/24 History (Synthroid) multivitamin 1 tab PO QAM 01/24/24 02/04/24 History sertraline 100 mg tablet 100 mg PO QDAY 01/24/24 02/04/24 History furosemide 20 mg tablet 20 mg PO DAILY 02/04/24 02/04/24 History insulin NPH isoph U-100 human 100 25 unit subcut BID 02/04/24 02/04/24 History unit/mL subcutaneous suspension (Novolin N NPH U-100 Insulin isophane) metoprolol tartrate 25 mg tablet 25 mg PO BID 02/04/24 02/04/24 History zinc gluconate 100 mg tablet 100 mg PO DAILY 02/04/24 02/04/24 History Allergy/AdvReac Type Severity Reaction Status Date / Time prednisone Allergy Mild unknown Verified 02/04/24 11:08 Surgical History H/O tubal ligation Social History Smoking Status: Never smoker Electronic Cigarette Use: not used alcohol intake: never substance use type: does not use ROS ROS Narrative 10 systems were reviewed with pertinent positives as noted in the HPI above. Physical Exam Const alert and no apparent distress General Appearance: cooperative HEENT normocephalic and head/scalp atraumatic Eyes PERRL, EOMs intact bilaterally and conjunctivae normal Neck supple General: trachea midline Chest inspection of chest normal Resp normal respiratory effort Auscultation: Negative for rales, rhonchi or wheezes Cardio regular rate and regular rhythm GI normal to inspection, nondistended, normoactive bowel sounds Extremity no clubbing, cyanosis or edema Skin no rashes or lesions noted Neuro CN's II-XII intact bilaterally, moves all extremities and no focal motor deficits Psych cooperative and affect normal Lab / Micro Data 02/05/24 05:14 02/05/24 05:14 Labs: Laboratory Results - last 24 hr 02/04/24 11:49: WBC 6.4, RBC 3.80 L, Hgb 11.8 L, Hct 36.9 L, MCV 97.1, MCH 31.1, MCHC 32.0, RDW Std Deviation 47.3 H, RDW Coeff of Alejandra 13.3, Plt Count 251, MPV 11.1, Immature Gran % (Auto) 0.500, Neut % (Auto) 78.0 H, Lymph % (Auto) 11.5 L, [place] % (Auto) 8.1, Eos % (Auto) 1.6, Baso % (Auto) 0.3, Absolute Neuts (auto) 5.0, Absolute Lymphs (auto) 0.74 L, Nucleated RBC % 0, PT 15.1 H, INR 1.2, APTT 24.5, Sodium 138, Potassium 4.8, Chloride 108 H, Carbon Dioxide 23.0, Anion Gap 7, BUN 39 H, Creatinine 1.30 H, Estim Creat Clear Calc 41.48, Est GFR (MDRD) Af Amer 51 L, Est GFR (MDRD) Non-Af 42 L, BUN/Creatinine Ratio 30.0 H, Glucose 247 H, Lactic Acid 2.0, Calcium 9.1, Total Bilirubin 0.30, AST 26, ALT 22, Alkaline Phosphatase 49, Troponin I High Sens 42, B-Natriuretic Peptide 104.9 H, Total Protein 7.9, Albumin 3.3, Globulin 4.6 H, Albumin/Globulin Ratio 0.7 L 02/04/24 16:18: Lactic Acid 1.1 02/04/24 17:31: POC Glucose 117 H 02/04/24 20:30: APTT 235.1 H* 02/04/24 21:20: Urine Color Yellow, Urine Clarity Clear, Urine pH 7.0, Ur Specific [place] 1.005, Urine Protein 15 H, Urine Glucose (UA) Normal, Urine Ketones Negative, Urine Occult Blood 150 H, Urine Nitrite Negative, Urine Bilirubin Negative, Urine Urobilinogen Normal, Ur Leukocyte Esterase Negative, Urine RBC 5-10 SEEN, Urine WBC 0-5 SEEN, Ur Squamous Epith Cells 0-5 SEEN, Urine Bacteria 0 SEEN, Urine Mucus 0 SEEN 02/04/24 22:25: POC Glucose 229 H 02/05/24 05:14: WBC 5.6, RBC 3.81 L, Hgb 11.9 L, Hct 36.9 L, MCV 96.9, MCH 31.2, MCHC 32.2, RDW Std Deviation 46.9 H, RDW Coeff of Alejandra 13.2, Plt Count 255, MPV 10.7, APTT 90.4 H*, Sodium 139, Potassium 4.0, Chloride 110 H, Carbon Dioxide 25.0, Anion Gap 4 L, BUN 33 H, Creatinine 1.13 H, Estim Creat Clear Calc 46.02, Est GFR (MDRD) Af Amer 60, Est GFR (MDRD) Non-Af 50 L, BUN/Creatinine Ratio 29.2 H, Glucose 87, Hemoglobin A1c 7.1 H, Calcium 9.4 02/05/24 06:32: POC Glucose 88 Micro: Microbiology 02/04/24 11:49 Mucosa - Nasopharyngeal SARS-CoV-2, Influenza & RSV (PCR) - Final Rhythm Strip Rhythm Strip: Sinus Rhythm (99) Rate: 99 (Complexes wide.) Ectopy: None Imaging Radiology Impression Chest X-Ray 02/04/24 11:30 IMPRESSION: No acute cardiopulmonary process identified. Electronically Signed: Dolly Baker MD at 12:15 EDT Reading Location ID and State: [facility] / [place] Tel , Service support , Chest CTA 02/04/24 13:35 IMPRESSION: Extensive bilateral pulmonary emboli with concern for right heart strain. Electronically Signed: Dolly Baker MD at 13:59 EDT , ADDENDUM: 02/04/24 1411 IMPRESSION: Extensive bilateral pulmonary emboli with concern for right heart strain. N.B. : The above Results were Read Back by Dolly Baker MD to Casimiro Parikh MD, and understanding confirmed on 02/04/2024 14:04:17 (ET). Electronically Signed: Dolly Baker MD at 13:59 EDT , Charges/Coding Visit Charges Inpatient E&M: 71788 Init Hosp L3
--- NOTE | 2024-02-05 11:39 | CASEMGMT ---
Addendum entered by Nanci Hoyt 02/05/24 12:33: Pt states not currently using O2 at home. BRITTON HERNDON provided pt with a list of local DME providers, pt states would like to use [employer] for home oxygen needs if pt goes home with O2. Original Note: BRITTON HERNDON Assessment: Face to Face with pt for initial transition planning/care coordination assessment. BRITTON HERNDON introduced self and role at [facility], pt voices understanding and consents to assessment. Pt is A&O x4 and answers all questions appropriately at this time. Pt sitting up in bed in no distress. Care providers, pharmacy, and demographics verified/updated. Strata: 2 Admitting Dx: SOB PCP: Royer Specialists: Denies Preferred Pharmacy: [facility] Insurance: [employer] Prescription Benefit: yes LNOK: , Sin; Daughter, Breanna Living Arrangements: Pt lives with in a ranch home with a ramp to enter. ADLs: Pt states needs assistance with ADLs and IADLs. Transportation: Pt states provides transportation when needed. DME: Wheelchair, Walker, Cane, Shower bench. HHC/SNF: Patient denies Hx of. Pt states no concerns with going home at time of dc. BRITTON HERNDON discussed HHC options with pt, interested in SN, refusing PT or OT. Pt states would like [facility]HC as first choice, declined wanting a list of local HHC agencies. Pt states no further concerns/needs. CM to follow. Advised pt to ask CM if any further question/concerns/needs arise, voices understanding. Pt Goal: Home Plan: Home with SN and SW HHC. Mary JARQUIN CM
[2024-02-05 12:57] LABS: Partial Thromboplast Time 65.2 Seconds (24.1-36.2)
--- NOTE | 2024-02-05 13:05 | CASEMGMT ---
Addendum entered by Nanci Hoyt 02/05/24 15:36: [facility] returned call, able to accept pt. Notified pt. Original Note: BRITTON HERNDON called [facility] to see if able to accept pt for SN services.
[2024-02-05] MEDS: Insulin NPH Human 100 UNITS/ML PEN 18 UNITS SC ×2 (13:35→21:24)
[2024-02-05] MEDS: Sertraline 100 MG Tablet PO (13:36)
[2024-02-05] MEDS: Fenofibrate 145 MG Tablet PO (13:36)
[2024-02-05] MEDS: Ascorbic Acid 500 MG Tablet PO (13:36)
[2024-02-05] MEDS: HEPARIN/D5w 25,000 UNITS 25,000 UNITS/250 ML IV.SOLN. 10 UNITS CONT INF (13:41)
--- NOTE | 2024-02-05 15:58 | PN.SURG_ITS ---
Subjective Subjective Saw patient resting comfortably in bed with at bedside. She is on 4 L O2 and saturating at 98%. She reports feeling very comfortable without any shortness of breath, chest pain, palpitations right now. She reports she has not been up out of the bed to ambulate yet. She did have a lower extremity venous duplex and echocardiogram this morning. Objective Data Objective Data Vital Signs: Vital Signs Temp Pulse Resp BP Pulse Ox O2 Del Method O2 Flow Rate 97 F L 88 18 140/92 H 95 Nasal Cannula 2 02/05/24 15:36 02/05/24 15:36 02/05/24 15:36 02/05/24 15:36 02/05/24 15:36 02/05/24 15:38 02/05/24 15:38 Oxygen Flow Rate (L/min) 2 Oxygen Delivery Method Nasal Cannula Weight: 203 lb 0.732 oz Body Mass Index (BMI) 33.7 Intake & Output: Intake and Output for Last 24 Hours 02/03/24 02/04/24 02/05/24 23:59 23:59 23:59 Intake Total 633.39 / 633.39 Balance 633.39 / 633.39 Lab / Micro Data 02/05/24 05:14 02/05/24 05:14 Labs: Laboratory Results - last 24 hr 02/04/24 16:18: Lactic Acid 1.1 02/04/24 17:31: POC Glucose 117 H 02/04/24 20:30: APTT 235.1 H* 02/04/24 21:20: Urine Color Yellow, Urine Clarity Clear, Urine pH 7.0, Ur Specific [place] 1.005, Urine Protein 15 H, Urine Glucose (UA) Normal, Urine Ketones Negative, Urine Occult Blood 150 H, Urine Nitrite Negative, Urine Bilirubin Negative, Urine Urobilinogen Normal, Ur Leukocyte Esterase Negative, Urine RBC 5-10 SEEN, Urine WBC 0-5 SEEN, Ur Squamous Epith Cells 0-5 SEEN, Urine Bacteria 0 SEEN, Urine Mucus 0 SEEN 02/04/24 22:25: POC Glucose 229 H 02/05/24 05:14: WBC 5.6, RBC 3.81 L, Hgb 11.9 L, Hct 36.9 L, MCV 96.9, MCH 31.2, MCHC 32.2, RDW Std Deviation 46.9 H, RDW Coeff of Alejandra 13.2, Plt Count 255, MPV 10.7, APTT 90.4 H*, Sodium 139, Potassium 4.0, Chloride 110 H, Carbon Dioxide 25.0, Anion Gap 4 L, BUN 33 H, Creatinine 1.13 H, Estim Creat Clear Calc 46.02, Est GFR (MDRD) Af Amer 60, Est GFR (MDRD) Non-Af 50 L, BUN/Creatinine Ratio 29.2 H, Glucose 87, Hemoglobin A1c 7.1 H, Calcium 9.4 02/05/24 06:32: POC Glucose 88 02/05/24 12:33: APTT 65.2 H Micro: Microbiology 02/04/24 11:49 Mucosa - Nasopharyngeal SARS-CoV-2, Influenza & RSV (PCR) - Final Radiography Diagnostic Testing: Radiology Impression Echocardiogram 02/04/24 14:05 Interpretation Summary The estimated ejection fraction is 60 %. Diastolic function is indeterminate. Pulmonary artery systolic pressure is 70 mmHg. Ordering Physician: Nishant Tijerina Performed By: Carlos Waggoner RCS Venous Doppler Study 02/04/24 14:05 Interpretation Summary Acute deep vein thrombosis is noted in the right tibio-peroneal trunk. Deep veins of the left lower extremity are patent and compressible segmentally. There is no evidence of left lower extremity deep vein thrombosis. The bilateral great saphenous veins appear patent and compressible segmentally. Ordering Physician: Nishant Tijerina Referring Physician: Martín Linton Performed By: Noreen Oliveira, ZEYAD, RVT Rhythm Strip Rhythm Strip: Sinus Rhythm (99) Rate: 99 (Complexes wide.) Ectopy: None Physical Exam Const alert, oriented x3 and no apparent distress General Appearance: cooperative and comfortable HEENT normocephalic, head/scalp atraumatic, hearing grossly normal bilaterally and external ears normal Head and Scalp: normal to inspection, normocephalic and atraumatic Eyes EOMs intact bilaterally General Eye: normal appearance of both eyes Neck General: normal visual inspection and trachea midline Resp normal respiratory effort, no retractions and no use of accessory muscles Effort and Inspection: able to speak in complete sentences Cardio regular rate and regular rhythm Neuro CN's II-XII intact bilaterally, moves all extremities and no focal motor deficits Speech: speech normal Psych mental status grossly normal Appearance: grossly normal Attitude: calm and engaged Mood & Affect: euthymic mood Assessment & Plan Assessment/Plan (1) Bilateral pulmonary embolism: PLAN: She has remained hemodynamically stable overnight and maintaining oxygen saturation greater than 90% with 2 to 4 L of oxygen via nasal cannula overnight and through the day. Her biomarkers were negative. Echo this morning showed normal RV size and systolic function, EF 60%, pulmonary artery systolic pressure 70 mmHg. At this time, recommending for conservative management with anticoagulation alone. From surgical perspective, okay to transition to oral anticoagulant. Discharge planning per primary team. Charges/Coding Visit Charges Inpatient E&M: 58565 Subs Hosp L1
[2024-02-05] MEDS: Insulin Lispro 100 UNIT/ML INSULN.PEN SC ×2 (16:52→21:25)
[2024-02-05 17:16] LABS: Bedside Glucose 202 mg/dL (74-106)
[2024-02-05 18:28] LABS: Bedside Glucose 122 mg/dL (74-106)
[2024-02-05 18:54] LABS: Partial Thromboplast Time 60.8 Seconds (24.1-36.2)
[2024-02-05 21:34] LABS: Bedside Glucose 178 mg/dL (74-106)
--- NOTE | 2024-02-05 22:29 | PCM.HOSP.N ---
Hospitalist Note Patient with anxiety and requesting rx for anxiety. Will have low dose as needed hydroxyzine.
[2024-02-06] MEDS: Nystatin Ointment 1 APPLIC TOPICAL ×2 (00:16→06:07)
[2024-02-06 03:30] VITALS: BP 146/98; PULSE 93; RESP 18; TEMP 36.4; O2SAT 94
[2024-02-06] MEDS: Levothyroxine 175 MCG Tablet PO (06:07)
[2024-02-06 06:32] LABS: Partial Thromboplast Time 54.2 Seconds (24.1-36.2)
[2024-02-06 07:40] VITALS: O2SAT 96
[2024-02-06] MEDS: Insulin Lispro 100 UNIT/ML INSULN.PEN SC ×2 (07:45→11:30)
[2024-02-06] MEDS: Heparin Injection (Vial) 5,000 UNIT/ML VIAL IV (07:46)
[2024-02-06 07:53] VITALS: BP 180/87; PULSE 94; RESP 20; TEMP 36.4; O2SAT 96
[2024-02-06] MEDS: Insulin NPH Human 100 UNITS/ML PEN 18 UNITS SC (09:27)
[2024-02-06] MEDS: Ascorbic Acid 500 MG Tablet PO (09:28)
[2024-02-06] MEDS: Senna/Docusate Sodium 1 Tablet PO (09:28)
[2024-02-06] MEDS: Sertraline 100 MG Tablet PO (09:28)
[2024-02-06] MEDS: Fenofibrate 145 MG Tablet PO (09:28)
[2024-02-06 09:41] LABS: Bedside Glucose 164 mg/dL (74-106)
--- NOTE | 2024-02-06 11:08 | DCINST_ITS ---
Discharge Instructions Follow Up Care Test Results: Test results from this visit will be discussed in further detail at your follow- up appointment, if applicable. Discharge Plan Admission Admit Date/Time: 02/04/24 13:59 Attending Provider: Min Carranza Primary Care Provider: Martín Linton Consulting Providers: Gerry Berumen; Soto Ross; Sherman Anne; Rik Sumner; Nando Matta; Denton Diallo; Krysten Souza; Eulogio Gaffney; Isaias Lainez; Kellee Johnson; Lizbet Ko; Brennan,Darryn; Omar Keller; Garland Barclay; Chance Weber; Indio Uriarte; Say Emanuel; Noah Singh; Nishant Tijerina Discharge Orders/Prescriptions Prescriptions: New Eliquis DVT-PE Treat 30D Start 5 mg (74 tabs) tablets,dose pack 5 mg PO BID Qty: 74 2RF Rx Instructions: 10 mg (2 tabs) twice daily for 7 days till 02/12/2024 and then twice daily to continue Continued levothyroxine [Synthroid] 175 mcg tablet 175 mcg PO QDAY enalapril maleate 20 mg tablet 20 mg PO QDAY multivitamin Tablet 1 tab PO QAM ascorbic acid (vitamin C) 100 mg tablet 100 mg PO QDAY sertraline 100 mg tablet 100 mg PO QDAY fenofibrate 160 mg tablet 160 mg PO DAILY ergocalciferol (vitamin D2) 1,250 mcg (50,000 unit) capsule 1,250 mcg PO MO Patient Comments: TAKE 1 CAPSULE EVERY WEEK Novolin N NPH U-100 Insulin 100 unit/mL suspension 25 unit subcut BID zinc gluconate 100 mg tablet 100 mg PO DAILY furosemide 20 mg tablet 20 mg PO DAILY metoprolol tartrate 25 mg tablet 25 mg PO BID Held aspirin 325 mg tablet 325 mg PO QDAY Hold Instructions: Hold it while patient is on Eliquis Referrals / Follow Up: Sherman Anne DO [Med Staff - Active Staff] - Within 1 Month (Follow-up for bilateral PE) Noah Singh MD [Med Staff - Active Staff] - Within 1 Month Martín Linton MD [Primary Care Provider] - Within 2 Weeks Precious Kaplan MD [Med Staff - Active Staff] - See Referral Note (Follow-up after 6 months after completion of Eliquis) Disposition Disposition (needs filled in before D/C Order can be placed): Home, Self Care
[2024-02-06 11:31] VITALS: PULSE 94
[2024-02-06] MEDS: APIXABAN 5 MG TABLET 10 MG PO (11:31)
[2024-02-06] MEDS: Metoprolol Tartrate 25 MG Tablet PO (11:31)
[2024-02-06 11:59] LABS: Bedside Glucose 257 mg/dL (74-106)
[2024-02-06 13:19] VITALS: O2SAT 90; O2SAT 94
[2024-02-06 13:20] VITALS: BP 146/76; O2SAT 93
--- NOTE | 2024-02-06 13:20 | DS.PCM_ITS ---
Providers Date of Admission: 02/04/24 Date of Discharge: 02/06/24 Primary Care Physician: Dr. Martín Linton MD Consultations 02/04/24 16:48 Consult: Vascular Surgery Routine Consulting Provider: Noah Singh Reason for Consult: bilateral PE EMERGENT Consult: No Notified: Yes Date Notified: 02/04/24 Time Notified: 17:00 Method of Notification: ED Physician Initiated 02/04/24 16:55 Consult: Asset Protection Professional / Pulmonary Medicine Routine Consulting Provider: Intensivists/Pulmonary Med Reason for Consult: PE EMERGENT Consult: No Notified: Yes Date Notified: 02/05/24 Time Notified: 07:39 Method of Notification: Text Reason For Visit: SOB Diagnosis Discharge Diagnosis (1) Bilateral pulmonary embolism: Status: Acute Code(s): I26.99 - Other pulmonary embolism without acute cor pulmonale Plan Patient is a 78-year-old female who presented to [facility] ED on 02/04/2024 with worsening shortness of breath. Hypoxia pulse ox 82% on room air. Currently on 4 L of oxygen. Increased falls recently 1. Bilateral diffuse extensive pulmonary emboli with suspected DVT: ? Admit under inpatient status to PCU. Vascular surgery consulted. CTA chest showed extensive bilateral pulmonary emboli with concern for right heart strain. It is reported as a large filling defect in distal right and left main pulmonary arteries with extension into all lobar, multiple segmental and subsegmental branches. Mild right chamber of heart enlargement. No pericardial effusion. New hypoxia requiring 4 L nasal cannula on admit. Bilateral LE swelling noted, worse on left. EKG with no ischemic changes noted. Will treat with heparin drip for now. 02/04: Patient is getting echo. Complain her left leg was more swollen than right for years. LE duplex ultrasound ordered. Patient being evaluated by vascular surgeon. Asset Protection Professional also consulted. 02/05: 2D echo was done. Reported mild TR PASP 70 mmHg. Normal RV size and systolic function. EF 65%. Lower extremity duplex ultrasound shows acute DVT in right tibioperoneal trunk. IV heparin drip discontinued and started on Eliquis 10 mg p.o. twice daily for 1 week till 02/12/2024 and then 5 mg twice daily to continue for 6 months. Advised follow-up with Dr. Anne pulmonary clinic and Dr. Singh in vascular clinic in 1 month. Follow-up academic department chair after 6-month that is after completion of Eliquis treatment. Patient pulse ox 96% on 2 L of oxygen. Patient had mild hypoxia getting better. Home oxygen qualification test ordered. 2. Acute debility ? PT/OT/case management consulted. Patient lives at home with . Reports decent functional status prior to 4 months ago when she had a fall; has not been very mobile since then. Need evaluation for SNF versus home with home health care on discharge. 02/05: Patient states he fell down and has poor balance. Depending on PT session might need walker or cane. 3. CKD stage III ? Creatinine 1.30 on admit, baseline 1.2-1.3. Did receive IV contrast with CTA chest but given PE with concern for right heart strain, 02/04: BUN/creatinine improving. BUN/creatinine 33/1.13. 4. Mild chronic anemia ? Hemoglobin 11.8 on admit, baseline around 12. Monitor daily CBC. 02/04: No acute change in CBC. 02/05: No acute bleeding. Chronic medical conditions: ? Obesity: BMI 35 on admit. Complicates hospital course, care and prognosis. ? Type 2 diabetes mellitus with hyperglycemia: Home regimen of insulin NPH 25 units twice daily. Blood glucose 247 on admit. A1c ordered. Will treat with NPH 18 units twice daily and sliding scale insulin with meals for now, adjust as needed. 02/05: Glucose is controlled. Continue home dose of insulin. A1c 7.1% ? Paroxysmal A-fib, hypertension, hyperlipidemia: Sinus tachycardia noted on admission. Is on aspirin 325 mg at home, not on anticoagulation due to fall risk. Will hold home Lopressor and enalapril for now. Low-dose Lasix was started for lower extremity swelling about 1 month ago, will hold this as well. Continue home fenofibrate. ? Hypothyroidism: Continue home Synthroid. ? Anxiety/depression: Stable. Continue home sertraline. DVT prophylaxis: Not indicated, on heparin drip CODE STATUS: DNR CCA, DNI. Microbiology Past 72 Hours 02/04/24 11:49 Mucosa - Nasopharyngeal SARS-CoV-2, Influenza & RSV (PCR) - Final Laboratory Results 02/05/24 10:59: POC Glucose 122 H 02/05/24 16:51: POC Glucose 202 H 02/05/24 18:35: APTT 60.8 H 02/05/24 21:15: POC Glucose 178 H 02/06/24 05:30: APTT 54.2 H 02/06/24 07:44: POC Glucose 164 H 02/06/24 11:28: POC Glucose 257 H Clinical Impression(s) from Imaging Studies Chest X-Ray 02/04/24 11:30 IMPRESSION: No acute cardiopulmonary process identified. Electronically Signed: Dolly Baker MD at 12:15 EDT , Chest CTA 02/04/24 13:35 IMPRESSION: Extensive bilateral pulmonary emboli with concern for right heart strain. Echocardiogram 02/04/24 14:05 Interpretation Summary The estimated ejection fraction is 60 %. Diastolic function is indeterminate. Pulmonary artery systolic pressure is 70 mmHg. Venous Doppler Study 02/04/24 14:05 Interpretation Summary Acute deep vein thrombosis is noted in the right tibio-peroneal trunk. Deep veins of the left lower extremity are patent and compressible segmentally. There is no evidence of left lower extremity deep vein thrombosis. The bilateral great saphenous veins appear patent and compressible segmentally. Ordering Physician: Nishant Tijerina Referring Physician: Martín Linton Performed By: Noreen Oliveira, MILYCS, RVT Medications at Discharge Home Medications fenofibrate 160 mg tablet 160 mg PO DAILY 12/18/20 ascorbic acid (vitamin C) 100 mg tablet 100 mg PO QDAY 01/24/24 aspirin 325 mg tablet 325 mg PO QDAY 01/24/24 enalapril maleate 20 mg tablet 20 mg PO QDAY 01/24/24 ergocalciferol (vitamin D2) 1,250 mcg (50,000 unit) capsule 1,250 mcg PO MO 01/24/24 levothyroxine 175 mcg tablet (Synthroid) 175 mcg PO QDAY 01/24/24 multivitamin 1 tab PO QAM 01/24/24 sertraline 100 mg tablet 100 mg PO QDAY 01/24/24 furosemide 20 mg tablet 20 mg PO DAILY 02/04/24 insulin NPH isoph U-100 human 100 unit/mL subcutaneous suspension (Novolin N NPH U-100 Insulin isophane) 25 unit subcut BID 02/04/24 metoprolol tartrate 25 mg tablet 25 mg PO BID 02/04/24 zinc gluconate 100 mg tablet 100 mg PO DAILY 02/04/24 apixaban 5 mg (74 tabs) tablets in a dose pack (PEAK-IT DVT-PE Treat 30D Start) 5 mg PO BID #74 tabs 02/06/24 Physical Exam Narrative Seen and examined. Shortness of breath exam proved. Denies chest pain tightness or congestion. No symptoms of acute URI. No cough. No fever discussed. Physical exam General: Alert, Oriented x3, Cooperative HEENT: Atraumatic, PERRLA, EOMI, Normocephalic Oral: Oral mucosa dry no Gingival or Mucosal Lesions/ Ulcerations Neck: Supple, No JVD, Negative Carotid Bruits Chest wall/Lungs: Air entry diminished in bilateral lung bases. No crepitation or rhonchi. On 1 L of oxygen. Cardiovascular: Sinus rhythm, Normal S1, Normal S2, systolic murmur LLSB, TR Abdomen: Bowel Sounds Present, Soft, Non Tender, Non-Distended : No dysuria. No renal angle tenderness. No suprapubic tenderness. Extremities: No edema, Capillary Refill Less than 3 Seconds Skin: No rashes, No breakdown Musculoskeletal: No Tenderness to Palpation of Joints or Extremities Neurological: Cranial nerves II-XII grossly intact, DTR 2+/4. No acute focal neurological deficit. Psych/Mental Status: Flat affect Weight / BMI Weight Weight: 203 lb 0.732 oz Body Mass Index (BMI) 33.7 ABG / Lab / Microbiology Data 02/05/24 05:14 02/05/24 05:14 Laboratory: Laboratory Results - last 24 hr 02/05/24 10:59: POC Glucose 122 H 02/05/24 16:51: POC Glucose 202 H 02/05/24 18:35: APTT 60.8 H 02/05/24 21:15: POC Glucose 178 H 02/06/24 05:30: APTT 54.2 H 02/06/24 07:44: POC Glucose 164 H 02/06/24 11:28: POC Glucose 257 H Microbiology: Microbiology 02/04/24 11:49 Mucosa - Nasopharyngeal SARS-CoV-2, Influenza & RSV (PCR) - Final Radiography Diagnostic Testing: Radiology Impression Venous Doppler Study 02/04/24 14:05 Interpretation Summary Acute deep vein thrombosis is noted in the right tibio-peroneal trunk. Deep veins of the left lower extremity are patent and compressible segmentally. There is no evidence of left lower extremity deep vein thrombosis. The bilateral great saphenous veins appear patent and compressible segmentally. Ordering Physician: Nishant Tijerina Referring Physician: Martín Linton Performed By: Noreen Oilveira RDCS, RVT Meaningful Use Info Meaningful Use Meaningful Use Diagnoses (Choose all that apply): VTE Ischemic Stroke Statin Dosing Therapy Reference: STATIN DOSE THERAPY REFERENCE: * Patients > 75 years receive moderate or high dose statin therapy. * Patients 75 years or YOUNGER should receive HIGH intensity statin dose unless contraindicated. You will be required to document reason for non-treatment if statin daily dose does not meet guidelines. HIGH DOSE STATIN THERAPY DAILY Atorvastatin > than or = to 40 mg Rosuvastatin > than or = to 20 mg Amlodipine + Atorvastatin > than or = to 2.5/40 mg Ezetimibe + Simvastatin 10/80 mg Simvastatin 80mg VTE Anticoag overlap given w/in hospital stay or rx'd at dc?: Yes Pt receive overlap for 5 days?: No Reason overlap not ordered, prescribed, or given for 5 days: Procedure Not Indicated Discharge Plan Admission Admit Date/Time: 02/04/24 13:59 Attending Provider: Min Carranza Primary Care Provider: Martín Linton Consulting Providers: Gerry Berumen; Soto Ross; Sherman Anne; Rik Sumner; Nando Matta; Denton Diallo; Krysten Souza; Eulogio Gaffney; Isaias Lainez; Kellee Johnson; Lizbet Ko; Darryn Amin; Omar Keller; Garland Barclay; Chance Weber; Indio Uriarte; Say Emanuel; Noah Singh; Nishant Tijerina Discharge Orders/Prescriptions Prescriptions: New Eliquis DVT-PE Treat 30D Start 5 mg (74 tabs) tablets,dose pack 5 mg PO BID Qty: 74 2RF Rx Instructions: 10 mg (2 tabs) twice daily for 7 days till 02/12/2024 and then twice daily to continue Continued levothyroxine [Synthroid] 175 mcg tablet 175 mcg PO QDAY enalapril maleate 20 mg tablet 20 mg PO QDAY multivitamin Tablet 1 tab PO QAM ascorbic acid (vitamin C) 100 mg tablet 100 mg PO QDAY sertraline 100 mg tablet 100 mg PO QDAY fenofibrate 160 mg tablet 160 mg PO DAILY ergocalciferol (vitamin D2) 1,250 mcg (50,000 unit) capsule 1,250 mcg PO MO Patient Comments: TAKE 1 CAPSULE EVERY WEEK Novolin N NPH U-100 Insulin 100 unit/mL suspension 25 unit subcut BID zinc gluconate 100 mg tablet 100 mg PO DAILY furosemide 20 mg tablet 20 mg PO DAILY metoprolol tartrate 25 mg tablet 25 mg PO BID Held aspirin 325 mg tablet 325 mg PO QDAY Hold Instructions: Hold it while patient is on Eliquis Referrals / Follow Up: Sherman Anne DO [Med Staff - Active Staff] - Within 1 Month (Follow-up for bilateral PE) Noah Singh MD [Med Staff - Active Staff] - Within 1 Month Martín Linton MD [Primary Care Provider] - Within 2 Weeks Precious Kaplan MD [Med Staff - Active Staff] - See Referral Note (Follow-up after 6 months after completion of Eliquis) Disposition Disposition (needs filled in before D/C Order can be placed): Home, Self Care Charges/Coding Visit Charges Inpatient E&M: 98736 Disch Hosp >30min
[2024-02-06 14:10] LABS: Partial Thromboplast Time 27.7 Seconds (24.1-36.2)
--- NOTE | 2024-02-06 15:00 | CASEMGMT ---
BRITTON HERNDON NOTE: Pt being discharged. Home O2 testing completed and pt does not qualify for any home O2. Pt discharging home on Eliquis, which has been e-scribed to [facility] retail pharmacy. Call placed to the pharmacy who states cost of medication was $47, pt has already pt for it, and they are in the process of delivering it to pt's room. The 30-day savings card was not applied. BRITTON CM to room. Pt sitting up in chair, @ bedside and will be taking pt home. They are aware pt does not need home O2. They state they do not have a pulse ox and would like to get one. Made aware of locations they can purchase these and they state they can afford to buy one. plans to stop @ [facility] retail pharmacy on their way out of the hospital to buy one. Per Padmini, [facility] will be tomorrow. Pt and made aware. They state [facility] has already contacted them and plan is to be @ their home b/w 9 and 10 AM tomorrow. Pt and state pt has never used the 30-day Eliquis trial card. Card provided to them and instructed on use. Made aware they can use on a refill, if they choose to do so, and aware it is a [id number]-lifetime use. They voice understanding. They deny having other discharge needs/concerns. Tobin COULTER RN, CM
--- NOTE | 2024-02-06 15:32 | CHAPLAIN ---
Type of Pastoral Visit _x__ Initial Visit ___ Follow-up Visit ___ On-call Visit ___ General Patient Visit ___ Spiritual Assessment ___ Family Conference ___ Bereavement ___ Rapid Response ___ Code Blue ___ Other (describe below) Pastoral Care Referral From _x__ Patient ___ Family ___ Nurse ___ Physician ___ Cnc Operator ___ Glaze Maker ___ Other (describe below) Sacrament/Intervention _x__ Active listening ___ Anointing ___ Samaritan ___ Bereavement ___ Communion ___ Willow exploration ___ ___ Life review _x__ Prayer ___ Reconciliation ___ Sacrament of Sick ___ Supportive presence ___ Wedding ___ Other (describe below) Pastoral Comments patient and spouse are in the room; pt states that she had received communion already; pt gives few details about her being admitted and claims that she is doing better now; pt states no worries, is waiting for more tests, and would welcome a new prayer
== END 2024-02-06 16:18 | disposition home health service (06) | DRG 176 ==
LOC: ED 14:02 → PCU 15:36
PROVIDERS: Family Medicine; Surgery Trauma Surgery; Admitting Provider Hospitalist; Emergency Provider Emergency Medicine; PCP Family Medicine; Visit Provider Internal Medicine
DX: I26.99 Other pulmonary embolism without acute cor pulmonale (principal); I82.441 Acute embolism and thrombosis of right tibial vein; I82.451 Acute embolism and thrombosis of right peroneal vein; E11.22 Type 2 diabetes mellitus with diabetic chronic kidney disease; D64.9 Anemia, unspecified; B37.31 Acute candidiasis of vulva and vagina; N18.30 Chronic kidney disease, stage 3 unspecified; E03.9 Hypothyroidism, unspecified; I12.9 Hypertensive chronic kidney disease with stage 1 through stage 4 chronic kidney disease, or unspecified chronic kidney disease; F32.A Depression, unspecified; E66.9 Obesity, unspecified; I48.0 Paroxysmal atrial fibrillation; E11.65 Type 2 diabetes mellitus with hyperglycemia; E78.00 Pure hypercholesterolemia, unspecified; F41.9 Anxiety disorder, unspecified; Z79.4 Long term (current) use of insulin; I87.2 Venous insufficiency (chronic) (peripheral); I25.2 Old myocardial infarction; I26.94 Multiple subsegmental thrombotic pulmonary emboli without acute cor pulmonale; R09.02 Hypoxemia; Z68.35 Body mass index [BMI] 35.0-35.9, adult; R60.0 Localized edema; Z66 Do not resuscitate; R53.81 Other malaise; Z11.52 Encounter for screening for COVID-19; Z79.82 Long term (current) use of aspirin; Z79.890 Hormone replacement therapy; Z79.899 Other long term (current) drug therapy; Z86.73 Personal history of transient ischemic attack (TIA), and cerebral infarction without residual deficits
CPT/HCPCS: 36415; 71046; 71275; 80048; 80053; 81001; 82962; 83036; 83605; 83880; 84484; 85025; 85027; 85610; 85730; 87631; 93005; 93306; 93970; 94668; 97162; 97166; 99282; Q9957; Q9967; A4216; C8929

== ENCOUNTER 2025-01-26 03:33 | Emergency (ER) | payer MEDICARE, SELFPAY ==
[2025-01-26 03:35] VITALS: BP 157/75; PULSE 77; RESP 18; TEMP 36.8; O2SAT 98; BMI 36.1
--- NOTE | 2025-01-26 03:47 | EKG12_ITS ---
Test Reason : CP Blood Pressure : */* mmHG Vent. Rate : 70 BPM Atrial Rate : 70 BPM P-R Int : 158 ms QRS Dur : 140 ms QT Int : 434 ms P-R-T Axes : 69 -31 19 degrees QTcB Int : 468 ms Normal sinus rhythm Left axis deviation Non-specific intra-ventricular conduction block Minimal voltage criteria for LVH, may be normal variant ( Avni product ) Abnormal ECG Confirmed by IGNACIO GARCÍA, GORAN ([id number]), writer editor ABRAM HINKLE ([id number]) on 01/27/2025 5:57:58 AM Referred By: MICHEL Confirmed By: GORAN PIERRE MD
--- NOTE | 2025-01-26 04:02 | CT_ITS ---
PROCEDURE: BRAIN/HEAD WITHOUT CONTRAST 01/26/2025 REASON FOR EXAM: DIZZINESS TECHNIQUE: Procedure Code: CTBR Modality: CT Procedure: BRAIN/HEAD WITHOUT CONTRAST Coronal and Sagittal reconstruction series were provided. One or more dose reduction techniques were used (e.g., Automated exposure control, adjustment of the mA and/or kV according to patient size, use of iterative reconstruction technique. RADIATION DOSE SUMMARY: CTDI Vol 44.99 mGy DLP :846.73 mGycm COMPARISON: none FINDINGS: Accentuated bilateral cerebral periventricular deep white matter hypodensities denoting hypoperfusion with bilateral cerebral periventricular and subcortical hypodense foci and patches. Espinoza-white matter differentiation is maintained. Normal CT appearance of the posterior fossa structures. No intracerebral or extra axial hemorrhage. Dilated ventricular system, cortical sulci and extra-axial CSF spaces. No definite calvarial fractures. No midline shifts or deformity. The osseous structures in the skull base are unremarkable. Paranasal sinuses are unremarkable. Vascular atheromatous calcifications. CT/Brain/Head without Contrast IMPRESSION: No acute cerebrovascular abnormalities. If clinical symptoms persist, further e valuation with MRI may be considered as clinically warranted. No intra or extra-axial acute hemorrhage. Bilateral cerebral microvascular ischemic changes with age matches brain involu tional changes. Reading Location: [facility]
[2025-01-26 04:12] VITALS: BP 172/72; BP 177/77; BP 180/75; PULSE 70; PULSE 75; PULSE 84
[2025-01-26 04:15] LABS: Mucous, Urine 0 SEEN /hpf (<or=2+); Squamous Epithelial Cells - UA 0 SEEN /hpf (5-10)
[2025-01-26 04:17] LABS: Hematocrit 32.3 % (37-47); Hemoglobin 10.5 g/dL (12.0-15.0); Immature Granulocytes Count 0.010 X10^3/uL (0.0-0.0); Mean Corp Hgb Conc 32.5 g/dL (32-36); Mean Corpuscular Volume 99.4 fL (81-99); Mean Platelet Vol. 10.2 fl (6.2-12.0); NRBC Flagged by Analyzer 0 % (0-5); Platelet Count 231 K/mm3 (150-450); RBC Distribution Width CV 14.3 % (11.6-14.6); RBC Distribution Width SD 52.0 fl (35.1-43.9); Red Blood Count 3.25 M/mm3 (4.2-5.4); White Blood Count 5.0 K/mm3 (4.4-11.0)
[2025-01-26 04:17] LABS: Color, Urine Yellow (Yellow); Glucose, Dipstick Normal (Normal); Ketone-Dipstick Negative (Negative); Leukocyte Esterase-Dipstick 500 /ul (Negative); Nitrite-Dipstick Negative (Negative); Occult Blood-Urine 150 /ul (Negative); Protein-Dipstick 15 mg/dl (Negative); Specific Gravity, Urine 1.010 (1.002-1.030); Urine Bilirubin Dipstick Negative (Negative)
[2025-01-26 04:35] LABS: Anion Gap 9 (5-15); BUN 30 mg/dL (4-19); BUN/Creat Ratio 26.6 RATIO (10-20); Calcium,Total 9.0 mg/dL (7.6-11.0); Carbon Dioxide 21.4 mmol/L (21.0-32.0); Chloride 107 mmol/L (98-108); Estimated Creatinine Clearance 46.47 ml/min (50-250); Glucose 168 mg/dL (70-99); Magnesium 2.1 mg/dL (1.5-2.2); Potassium 5.7 mmol/L (3.3-5.1)
[2025-01-26] MEDS: 0.9% Normal Saline (500mL Bag) 500 ML 999 ML IV ×2 (04:39→05:50)
--- OUTSIDE RECORDS SUMMARY | 2025-01-26 04:44 | XMS RPT_ITS | CCD ---
Author Organization [facility] Care Team Providers Care Obstetric Assistant Name Role Phone Unavailable Primary Care Provider Unavailabl e Kassi Young Primary Care Provider Kassi Young Primary Care Provider Kassi Young MD Primary Care Provider Zac Linton MD Primary Care Provider Zac Linton MD Primary Care Provider Zac Linton MD Primary Care Provider Zac Linton MD Primary Care Provider Zac Linton MD Primary Care Provider Ehsan PLATE DEVELOPER.Padmini AVALOS Unavailable Bryant PLATE DEVELOPER.Shankar AVALOS Unavailable Tannhof PLATE DEVELOPER.Padmini AVALOS Unavailable Unavail able Dr. Zac Linton MD Primary Care Provider Dr. Zac Linton MD Referring Provider Dr. Josue Hsu MD Attending Provider Nishant Tijerina Attending Unavailable Nishant Tijerina Admitting Unavailable Nishant Tijerina Consulting Unavailable Zac Linton Primary Care Unavailable Min Carranza Attending Unavailable Gerry Berumen Consulting Unavailable Soto Ross Consulting Unavailable Sherman Anne Consulting Unavailable Rik Sumner Consulting Unavailable Nando Matta Consulting Unavailable Denton Diallo Consulting Unavailable Krysten Souza Consulting Unavailab Eulogio Dejesus Consulting Unavailable Isaias Lainez Consulting Unavailable Alex, Kellee Consulting Unavailable Aljundi, Lamia Consulting Unavailable Brennan, Darryn Consulting Unavailable Irukulla, Omar Consulting Unavailable Deny, Garland Consulting Unavailable Weber, Sujoy Consulting Unavailable Chapito, Indio Consulting Unavailable AdelfoSay finch Consulting Unavailable Samantha, Noah Consulting Unavailable Dillon, Min Consulting Unavailable Dillon, Min Referring Unavailable Ariadna Preciado Attending Unavailable Sherman Anne Attending Unavailable Nishant Tijerina Referring Unavailable Noah Singh Attending Unavailable Elderbrock, Zac Primary Care Unavailable Elderbrock, Zac Primary Care Unavailable Isai Louie Attending Unavailable Nishant Tijerina Admitting Unavailable Gerry Berumen Consulting Unavailable Dillon, Min Attending Unavailable Elderbrock, Zac Primary Care Unavailable Soto Ross Consulting Unavailable Sherman Anne Consulting Unavailable Rik Sumner Consulting Unavailable Nando Matta Consulting Unavailable Yoel, Denton Consulting Unavailable Krysten Souza Consulting Unavailab Eulogio Dejesus Consulting Unavailable Isaias Lainez Consulting Unavailable Alex, Kellee Consulting Unavailable Aljundi, Lamia Consulting Unavailable Brennan, Darryn Consulting Unavailable Irukulla, Omar Consulting Unavailable Deny, Garland Consulting Unavailable Weber, Sujoy Consulting Unavailable Chapito, Indio Consulting Unavailable Say Emanuel Consulting Unavailable Samantha, Noah Consulting Unavailable Nishant Tijerina Consulting Unavailable Alma Gallagher Attending Unavailabl e Elderbrock, Zac Primary Care Unavailable Shadi, Josue Attending Unavailable Elderbrock, Zac Primary Care Unavailable Elderelenitack, Zac Referring Unavailable Ariadna Preciado Attending Unavailable Elderbrock, Zac Primary Care Unavailable Elderbrock, Zac Referring Unavailable Shadi, Josue Attending Unavailable Elderbrock, Zac Primary Care Unavailable Elderbrock, Zac Referring Unavailable Shadi, Josue Attending Unavailable Elderbrock, Zac Referring Unavailable Elderbrock, Zac Primary Care Unavailable PADMINI MOSER Referring Unavailabl e ZAC LINTON Primary Care Unavailable ELDERZAC VERA Primary Care Unavailable ZAC LINTON Attending Unavailable PADMINI MOSER Attending Unavailabl e ZAC LINTON D Primary Care Unavailable LINDSAY WYATT Referring Unavailable ZAC LINTON Primary Care Unavailable ZAC LINTON Primary Care Unavailable LINDSAY WYATT Attending Unavailable ZAC LINTON Primary Care Unavailable LINDSAY WYATT Referring Unavailable ZAC LINTON Primary Care Unavailable LINDSAY WYATT Attending Unavailable ZAC LINTON Primary Care Unavailable ZAC LINTON Referring Unavailable ZAC LINTON Primary Care Unavailable ZAC LINTON Attending Unavailable Allergies Allergy Classification Reported Allergen(s) Allergy Type Date of Onset Reaction(s) Facility Corticosteroids (3 sources) predniSONE Drug Allergy 6 Other: See Comments [facility] (20 sources) predniSONE; Translations: [PREDNISONE] Drug Allergy 6 Other: See Comments [facility] (1 source) predniSONE Drug Allergy 5 [facility] Repository Medications Current Medications Medication Drug Class(es) Dates Sig (Normalized) Sig (Original) amoxicillin 500 mg oral capsule (1 source) Penicillin-class Antibacterial Start: 12-03-2024 End: 12-13-2024 take 1 capsule by mouth three times daily amoxicillin (AMOXIL) 500 mg capsule Indications: Dysuria Take 1 capsule by mouth three times a day for 10 days. 30 capsule 12/03/2024 12/13/2024 Active apixaban 5 mg oral tablet (20 sources) Factor Xa Inhibitor Start: 02-13-2024 End: 12-28-2024 take 1 tablet by mouth twice daily apixaban (ELIQUIS) 5 mg tab(s) Take 1 tablet by mouth two times a day. 180 tablet 3 02/24/2024 Active Start: 02-06-2024 End: 04-20-2024 take 2 tablets by mouth twice daily, then take 1 tablet by mouth twice daily Apixaban (Eliquis Dvt-Pe Treat 30d Start) 5 mg (74 tabs) tablets,dose pack Discontinued 5 mg PO TWICE A DAY February 06, 2024 12:00am April 20, 2024 2:48pm 10 mg (2 tabs) twice daily for 7 days till 02/12/2024 and then twice daily to continue ascorbic acid 100 mg oral tablet (20 sources) Vitamin C Start: 01-24-2024 take 1 tablet by mouth once daily Ascorbic Acid (Vitamin C) 100 mg tablet Active 100 mg PO daily January 24, 2024 12:00am End: 11-07-2020 take 5 tablets by mouth once daily Ascorbic Acid 100 mg tablet Take 500 mg by mouth once daily. 0 11/07/2020 Discontinued (Patient chooses alternative therapy) Comment on above: Take 500 mg by mouth once daily. ascorbic acid 113 mg / beta carotene 7160 mg / cuprous oxide 0.4 mg / dl-alpha tocopheryl acetate 100 unt / zinc oxide 17.4 mg oral tablet (20 sources) Vitamin C Start: 4 take 1 tablet by mouth once daily at breakfast vit A,C,U-Xnwi-Lgemld (PRESERVISION AREDS) 2,148 mcg-113 mg-45 mg-17.4mg tab Take 1 tablet by mouth daily with breakfast. 02/07/2024 Active aspirin 325 mg oral tablet (20 sources) Platelet Aggregation Inhibitor, Nonsteroidal Anti-inflammatory Drug Start: 4 take 1 tablet by mouth once daily Aspirin 325 mg tablet Active 325 mg PO daily January 24, 2024 12:00am On Hold: Hold it while patient is on Eliquis Start: 06-07-2021 End: 06-12-2024 take 1 tablet by mouth once daily at mealtime aspirin, enteric coated (ASPIRIN, ENTERIC COATED) 325 mg EC tablet Take 1 tablet by mouth once daily. Take with food. 30 tablet 11 06/07/2021 06/12/2024 Discontinued Start: 12-18-2020 End: 01-24-2024 take 81 mg by mouth once daily Aspirin Active 81 MG PO DAILY December 18, 2020 6:10pm Comment on above: Take 1 tablet by negrito th once daily. Take with food. cefuroxime 250 mg oral tablet (6 sources) Cephalosporin Antibacterial Start: 5 End: 5 take 1 tablet by mouth twice daily cefUROXime (CEFTIN) 250 mg tablet Indications: Recurrent UTI (urinary tract infection) Take 1 tablet by mouth two times a day for 10 days. 20 tablet 12/29/2024 01/08/2025 Active cephalexin 500 mg oral capsule (6 sources) Cephalosporin Antibacterial Start: 4 End: 4 take 1 capsule by mouth twice daily cephALEXin (KEFLEX) 500 mg capsule Indications: Urinary tract infection without hematuria, site unspecified Take 1 capsule by mouth two times a day for 7 days. 14 capsule 0 11/19/2023 11/26/2023 Active Start: 10-28-2023 End: 11-04-2023 take 1 capsule by mouth twice daily cephALEXin (KEFLEX) 500 mg capsule Take 1 capsule by mouth two times a day for 7 days. 14 capsule 0 10/28/2023 11/04/2023 Active Start: 02-21-2023 End: 02-28-2023 take 1 capsule by mouth twice daily cephALEXin (KEFLEX) 500 mg capsule Take 1 capsule by mouth two times a day for 7 days. 14 capsule 0 02/21/2023 02/28/2023 Active Comment on above: Take 1 capsule by mo ut two times a day for 7 days. ciprofloxacin 500 mg oral tablet (8 sources) Quinolone Antimicrobial Start: 05-22-19 End: 05-31-19 take 1 tablet by mouth twice daily ciprofloxacin HCl (CIPRO) 500 mg tablet Take 1 tablet by mouth two times a day for 5 days. 10 tablet 05/26/2024 05/31/2024 Active Start: 03-17-2024 End: 03-22-2024 take 1 tablet by mouth twice daily ciprofloxacin HCl (CIPRO) 500 mg tablet Take 1 tablet by mouth two times a day for 5 days. 10 tablet 03/17/2024 03/22/2024 Active Start: 12-10-2023 End: 12-17-2023 take 1 tablet by mouth twice daily ciprofloxacin HCl (CIPRO) 500 mg tablet Indications: Recurrent UTI (urinary tract infection) Take 1 tablet by mouth two times a day for 7 days. 14 tablet 0 12/10/2023 12/17/2023 Active enalapril maleate 20 mg oral tablet (20 sources) Angiotensin Converting Enzyme Inhibitor Start: 03-23-2024 take 2 tablets by mouth once daily Enalapril Maleate 20 mg tablet Active 40 mg PO daily March 23, 2024 12:40pm Start: 04-30-2023 End: 03-23-2024 take 1 tablet by mouth once daily enalapril (VASOTEC) 20 mg tablet Take 1 tablet by mouth once daily. 90 tablet 3 02/13/2024 Active Start: 06-07-2021 End: 05-15-2022 take 1 tablet by mouth once daily enalapril (VASOTEC) 20 mg tablet Take 1 tablet by mouth once daily. 90 tablet 3 05/15/2022 Active Comment on above: Take 1 tablet by negrito once daily. ergocalciferol 1.25 mg oral capsule (20 sources) Provitamin D2 Compound Start: 04-30-20 End: 02-13-20 24 take 1 capsule by mouth every week ergocalciferol 50,000 unit capsule (VITAMIN D2, DRISDOL) Indications: Vitamin D deficiency Take 1 capsule by mouth one time a week. 12 capsule 3 02/13/2024 Active Start: 12-18-2020 End: 01-24-2024 Ergocalciferol (Vitamin D2) 1,250 mcg (50,000 unit) capsule Active 1250 ug PO MO January 24, 2024 11:13am Start: 04-06-2020 End: 01-25-2023 take 1 capsule by mouth every week ergocalciferol 50,000 unit capsule (VITAMIN D2, DRISDOL) Indications: Vitamin D deficiency TAKE 1 CAPSULE BY MOUTH ONCE A WEEK 12 capsule 3 07/16/2022 Active Comment on above: Take 1 capsule by mo [facility] one time a week. TAKE 1 CAPSULE BY MO [facility] ONCE A WEEK fenofibrate 160 mg oral tablet (20 sources) Peroxisome Proliferator Receptor alpha Agonist Start: 023 End: 025 take 1 tablet by mouth once daily Fenofibrate (LOFIBRA) 160 mg tablet Indications: Hypertriglyceridemia Take 1 tablet by mouth once daily. 90 tablet 3 02/13/2024 02/07/2025 Active Start: 03-25-2020 End: 05-08-2022 take 1 tablet by mouth once daily Fenofibrate (LOFIBRA) 160 mg tablet Indications: Hypertriglyceridemia Take 1 tablet by mouth once daily. 90 tablet 3 11/09/2021 Active Comment on above: Take 1 tablet by negrito once daily. fluconazole 150 mg oral tablet (3 sources) Azole Antifungal Start: End: take 1 tablet by mouth once fluconazole (DIFLUCAN) 150 mg tablet Indications: Vaginal yeast infection Take 1 tablet by mouth one time only for 1 dose. 1 tablet 12/03/2024 12/03/2024 Active Start: 12-02-2023 End: 12-02-2023 fluconazole (DIFLUCAN) 150 m g tablet Indications: Vaginal yeast infection Take 1 tablet by mouth one time only for 1 dose. Repeat in 3 days as needed. 2 tablet 0 12/02/2023 12/02/2023 Active Start: 10-23-2023 End: 10-23-2023 fluconazole (DIFLUCAN) 150 m g tablet Indications: Vaginal yeast infection Take 1 tablet by mouth one time only for 1 dose. Repeat in 3 days as needed. 2 tablet 0 10/23/2023 10/23/2023 Active furosemide 40 mg oral tablet (20 sources) Loop Diuretic Start: 03-23-2024 take 1 tablet by mouth once daily in the morning Furosemide (Lasix) 40 mg tablet Active 40 mg PO EVERY MORNING March 23, 2024 1:00am Start: 01-02-2024 End: 02-07-2025 take 1 tablet by mouth once daily furosemide (LASIX) 20 mg tablet Indications: Leg swelling Take 1 tablet by mouth once daily. 90 tablet 3 02/13/2024 02/07/2025 Active hydroCHLOROthiazide 12.5 mg / lisinopril 20 mg oral tablet (2 sources) Thiazide Diuretic, Angiotensin Converting Enzyme Inhibitor Start: 12-18-2020 take 1 tablet by mouth once daily Lisinopril-Hydrochlorothiazide Active 1 TABLET PO DAILY December 18, 2020 6:10pm Start: 12-18-2020 End: 01-24-2024 Lisinopril-Hydrochlorothiazi de 20-12.5 mg tablet Discontinued 1 {tbl} PO DAILY December 18, 2020 12:00am January 24, 2024 11:16am Insulin Nph Isoph U-100 Tawana n (Novolin N Nph U-100 Insulin) 100 unit/mL Cartridge (2 sources) Start: 12-18-2020 Insulin Nph Is oph U-100 Human (Novolin N Nph U-100 Insulin) 100 unit/mL Cartridge Active 24 UNIT SC TWICE A DAY December 18, 2020 6:10pm Start: 12-18-2020 End: 02-04-2024 Insulin Nph Isoph U-100 Tawana n (Novolin N Nph U-100 Insulin) 100 unit/mL Cartridge Discontinued 24 U SC TWICE A DAY December 18, 2020 12:00am February 04, 2024 2:49pm insulin isophane, human 100 unt/ml injectable suspension (20 sources) Start: 09-15-2024 Insulin Nph Is oph U-100 Human (Novolin N Nph U-100 Insulin) 100 unit/mL suspension Active 25 U SC TWICE A DAY September 15, 2024 2:19pm Start: 03-23-2024 End: 09-15-2024 Insulin Nph Isoph U-100 Tawana n (Novolin N Nph U-100 Insulin) 100 unit/mL suspension Discontinued 24 U SC TWICE A DAY March 23, 2024 12:08pm September 15, 2024 2:19pm Start: 02-04-2024 End: 03-23-2024 Insulin Nph Isoph U-100 Tawana n (Novolin N Nph U-100 Insulin) 100 unit/mL suspension Discontinued 25 U SC TWICE A DAY February 04, 2024 12:00am March 23, 2024 12:09pm Start: 06-07-2021 End: 09-17-2024 insulin NPH injection Indica tions: Type 2 diabetes mellitus with diabetic polyneuropathy, with long-term current use of insulin (HCC) 25 units in the am and 25 units in the pm. 24 mL 09/17/2024 Active Start: 10-02-2018 inject 27 [IU] by pierce bcutaneous injection twice daily insulin NPH injection (HumuLIN N,NovoLIN N) Indications: Type 2 diabetes mellitus with diabetic polyneuropathy, with long-term current use of insulin (HCC) Inject 27 Units subcutaneously twice daily. 0 10/02/2018 Active Comment on above: Inject 27 Units subc utaneously twice daily. 24 units in the am a nd 24 units in the pm. levothyroxine sodium 0.175 mg oral tablet (20 sources) l-Thyroxine Start: 024 End: 026 take 1 tablet by mouth once daily for thyroid dysfunction levothyroxine (SYNTHROID) 175 mcg tablet Indications: Hypothyroidism, acquired Take 1 tablet by mouth once daily. Take on empty stomach. For Thyroid. 90 tablet 3 12/28/2024 12/23/2025 Active Start: 03-24-2020 End: 10-30-2024 take 1 tablet by mouth once daily levothyroxine (SYNTHROID) 150 mcg tablet Indications: Hypothyroidism, acquired Take 1 tablet by mouth once daily. 90 tablet 3 10/31/2023 10/30/2024 Active Comment on above: Take 1 tablet by [facility] once daily. metoprolol tartrate 25 mg oral tablet (20 sources) beta-Adrenergic Christopher Start: End: take 1 tablet by mouth twice daily metoprolol tartrate, short acting, (LOPRESSOR) 25 mg tablet Indications: Primary hypertension Take 1 tablet by mouth two times a day. 180 tablet 3 02/13/2024 02/12/2025 Active Multivitamin tablet (1 source) Start: Multivitamin tablet Active 1 {tbl} PO EVERY MORNING January 24, 2024 12:00am multivitamin with minerals (MULTIPLE VITAMINS 55 PLUS ORAL) (20 sources) take 1 capsule by mouth once daily multivitamin with minerals (MULTIPLE VITAMINS 55 PLUS ORAL) Take 1 capsule by mouth once daily. Active take 1 capsule by mouth once norris ly multivitamin with minerals (MULTIPLE VITAMINS 55 PLUS ORAL) Take 1 capsule by mouth once daily. 0 Active Comment on above: Take 1 capsule by mo [facility] once daily. nitrofurantoin, macrocrystals 25 mg / nitrofurantoin, monohydrate 75 mg oral capsule (16 sources) Nitrofuran Antibacterial Start: End: take 1 capsule by mouth twice daily at mealtime nitrofurantoin monohydrate and macrocrystal (MACROBID) 100 mg capsule Indications: Acute cystitis with hematuria Take 1 capsule by mouth two times a day with meals for 7 days. 14 capsule 07/14/2024 07/21/2024 Active Start: 06-18-2024 End: 06-25-2024 take 1 capsule by mouth twice daily at mealtime nitrofurantoin monohydrate and macrocrystal (MACROBID) 100 mg capsule Indications: Acute cystitis with hematuria Take 1 capsule by mouth two times a day with meals for 7 days. 14 capsule 06/18/2024 06/25/2024 Active Start: 12-02-2023 End: 12-09-2023 take 1 capsule by mouth twice daily at mealtime nitrofurantoin monohydrate and macrocrystal (MACROBID) 100 mg capsule Indications: Recurrent UTI (urinary tract infection) Take 1 capsule by mouth two times a day with meals for 7 days. 14 capsule 0 12/02/2023 12/09/2023 Active Start: 07-05-2022 End: 07-12-2022 take 1 capsule by mouth twice daily at mealtime nitrofurantoin monohydrate and macrocrystal (MACROBID) 100 mg capsule Indications: Acute cystitis with hematuria Take 1 capsule by mouth twice daily with meals for 7 days. 14 capsule 0 07/05/2022 07/12/2022 Start: 11-23-2021 End: 11-28-2021 take 1 capsule by mouth twice daily nitrofurantoin monohydrate and macrocrystal (MACROBID) 100 mg capsule Take 1 capsule by mouth twice daily for 5 days. 10 capsule 0 11/23/2021 11/28/2021 Active Start: 10-13-2021 End: 10-18-2021 take 1 capsule by mouth twice daily nitrofurantoin monohydrate and macrocrystal (MACROBID) 100 mg capsule Take 1 capsule by mouth twice daily for 5 days. 10 capsule 0 10/13/2021 10/18/2021 Active Start: 08-17-2021 End: 01-24-2024 take 1 capsule by mouth twice daily at mealtime Nitrofurantoin Monohyd/M-Cryst (Macrobid) 100 mg capsule Active 100 MG PO TWICE A DAY 14 August 17, 2021 12:34am must administer with a meal/food Comment on above: Take 1 capsule by mo uth twice daily for 5 days. Take 1 capsule by mo uth twice daily with meals for 7 days. ondansetron 4 mg disintegrating oral tablet (2 sources) Serotonin-3 Receptor Antagonist Start: 08-18-19 End: 02-04-20 take 4 mg by mouth every eight hours Ondansetron Active 4 MG PO Q8H August 17, 2021 12:34am phenazopyridine hydrochloride 100 mg oral tablet (10 sources) Start: 12-29-19 End: 01-04-20 take 1 tablet by mouth three times daily as needed phenazopyridine (PYRIDIUM) 100 mg tablet Indications: Recurrent UTI (urinary tract infection) Take 1 tablet by mouth three times a day as needed for up to 5 days. 15 tablet 12/29/2024 01/03/2025 Active Start: 07-05-2022 End: 07-15-2022 take 2 tablets by mouth three times daily as needed phenazopyridine (PYRIDIUM) 100 mg tablet Indications: Acute cystitis with hematuria Take 2 tablets by mouth three times daily as needed for up to 10 days. 30 tablet 0 07/05/2022 07/15/2022 Active Comment on above: Take 2 tablets by mo uth three times daily as needed for up to 10 days. red beet root-sour raines ext 250-0.5 mg chew (20 sources) Start: 02-07-2024 take 1 tablet by mouth once daily red beet root-sour raines ext 250-0.5 mg chew Take 1 tablet by mouth once daily. 02/07/2024 Active sertraline 50 mg oral tablet (20 sources) Serotonin Reuptake Inhibitor Start: 12-28-2024 End: 06-26-2025 take 3 tablets by mouth once daily sertraline (ZOLOFT) 50 mg tablet Indications: ARASELI (generalized anxiety disorder) Take 3 tablets by mouth once daily. 270 tablet 1 12/28/2024 06/26/2025 Active Start: 11-08-2022 End: 12-28-2024 take 1 tablet by mouth once daily sertraline (ZOLOFT) 100 mg tablet Indications: ARASELI (generalized anxiety disorder) Take 1 tablet by mouth once daily. 90 tablet 3 02/13/2024 12/28/2024 Discontinued Start: 04-09-2022 take 1 tablet by negrito th once daily sertraline (ZOLOFT) 100 mg tablet Indications: ARASELI (generalized anxiety disorder) Take 1 tablet by mouth once daily. 90 tablet 5 04/09/2022 Active Start: 03-24-2021 End: 04-09-2022 take 0.5 tablet by mouth once daily sertraline (ZOLOFT) 100 mg tablet Indications: ARASELI (generalized anxiety disorder) Take 0.5 tablets by mouth once daily. 90 tablet 1 11/27/2021 04/09/2022 Discontinued End: 11-07-2020 take 1 tablet by mouth once daily sertraline (ZOLOFT) 100 mg tablet Take 1 tablet by mouth once daily. 0 11/07/2020 Discontinued (Patient chooses alternative therapy) Comment on above: Take 1 tablet by negrito th once daily. Take 0.5 tablets by mouth once daily. Zinc (20 sources) ZINC ORAL Take b y mouth. Active ZINC ORAL Take b y mouth. 0 Active Comment on above: Take by mouth. zinc gluconate 100 mg oral tablet (1 source) Start: 02-04-2024 take 1 tablet by mouth once daily Zinc Gluconate 100 mg tablet Active 100 mg PO DAILY February 04, 2024 12:00am Completed/Discontinued Medications Medication Drug Class(es) Dates Sig (Normalized) Sig (Original) acetaminophen 325 mg / oxyCODONE hydrochloride 5 mg oral tablet (1 source) Opioid Agonist Start: 10-17-2023 End: 02-04-2024 Oxycodone-Acetami nophen (Percocet) 5-325 mg tablet Discontinued 1 {tbl} PO Q8H as needed for pain 04 07October 17, 2023 February 04, 2024 2:50pm ALPRAZolam 0.5 mg oral tablet (1 source) Benzodiazepine End: 06-21-2020 ALPRAZolam (XANAX) 0.5 mg tablet Take 0.5 mg by mouth. 0 06/21/2020 Discontinued (Patient chooses alternative therapy) Comment on above: Take 0.5 mg by mouth . aspirin 81 mg / calcium carbonate 777 mg oral tablet (5 sources) Platelet Aggregation Inhibitor, Nonsteroidal Anti-inflammatory Drug take 1 tablet by mouth once daily aspirin-calcium carbonate 81 mg-300 mg calcium(777 mg) tab Take 81 mg by mouth once daily. 0 Active Comment on above: Take 81 mg by mouth once daily. B jqahcv-F-qdzhy-zinc -cup pierce-E 500 mg-400 mcg- 23.9 mg-3 mg tab (5 sources) B gpnynp-A-ccdvs-zi nc-cup pierce-E 500 mg-400 mcg- 23.9 mg-3 mg tab Take by mouth. 0 Active Comment on above: Take by mouth. calcium carbonate/vitamin D2 (CALCIUM + VITAMIN D ORAL) (5 sources) End: 11-07-2020 calcium carbonate/vitamin D2 (CALCIUM + VITAMIN D ORAL) calcium carbonat e/vitamin D2 (CALCIUM + VITAMIN D ORAL) nystatin [id number] unt/ml topical cream (15 sources) Polyene Antifungal Start: 02-07-2024 End: 06-12-2024 nystatin (MYCOSTATIN) cream Apply to affected area two times a day. 02/07/2024 06/12/2024 Discontinued microencapsulated potassium chloride 20 meq extended release oral tablet (17 sources) Start: 03-23-2024 End: 12-28-2024 take 1 tablet by mouth once daily potassium chloride ER (KLOR-CON) 20 mEq tablet Take 20 mEq by mouth once daily. Started by Cardio due to being on Lasix 03/23/2024 12/28/2024 Discontinued (Discontinued by Patient) Start: 03-23-2024 take 1 tablet by negrito th once daily Potassium Chloride 20 mEq tablet extended release Active 20 meq PO daily 90 March 23, 2024 1:00am Zinc Acetate (1 source) Start: 01-24-2024 End: 02-04-2024 zinc acetate Discontinued PO January 24, 2024 12:00am February 04, 2024 2:50pm Problems Active Problems Problem Classification Problem Date Documented Da te Episodic/Chronic Anxiety disorders (7 sources) Generalized anxiety disorder; Translations: [Generalized anxiety disorder] Onset: 12-28-2024 Chronic Cardiac dysrhythmias (8 sources) Cardiac arrhythmia; Translations: [Cardiac arrhythmia, unspecified] Onset: 03-23-2024 01-02-2024 Chronic Cardiac dysrhythmias (2 sources) Palpitations; Translations: [Palpitations] 01-02-2024 Episodic Chronic kidney disease (20 sources) Chronic kidney disease stage 3A ; Translations: [Chronic kidney disease, stage 3a] Onset: 11-08-2022 Resolved: 06-12-2024 11-08-2022 Chronic Chronic kidney disease (1 source) Chronic kidney disease; Translations: [Stage 3a chronic kidney disease (HCC)] Onset: 09-17-2024 Coronary atherosclerosis and other heart disease (20 sources) History of non-ST segment elevation myocardial infarction; Translations: [Old myocardial infarction] Onset: 04-10-2022 04-26-2022 Chronic Diabetes mellitus with complications (20 sources) Hyperglycemia due to type 2 diabetes mellitus; Translations: [Type 2 diabetes mellitus with hyperglycemia] Onset: 09-06-2015 06-21-2020 Chronic Diabetes mellitus without complication (20 sources) Type 2 diabetes mellitus; Translations: [Diabetes mellitus] Onset: 09-06-2015 06-21-2020 Chronic Disorders of lipid metabolism (20 sources) Hypertriglyceridemi a; Translations: [Pure hyperglyceridemia] Onset: 06-21-2020 06-21-2020 Chronic E Codes: Fall (1 source) Fall; Translations: [Unspecified fall, initial encounter] 10-25-2023 Episodic Essential hypertension (20 sources) Hypertensive disorder; Translations: [Essential (primary) hypertension] Onset: 12-12-2020 12-12-2020 Chronic Fracture of upper limb (2 sources) Closed fracture of upper end of humerus; Translations: [Unspecified fracture of upper end of unspecified humerus, initial encounter for closed fracture] 10-25-2023 Episodic Genitourinary symptoms and ill-defined conditions (9 sources) Dysuria; Translations: [Painful micturition, unspecified] Onset: 06-16-2024 Episodic Mycoses (3 sources) Candidiasis of vagina; Translations: [Vaginal yeast infection] 10-23-2023 Episodic Nonspecific chest pain (2 sources) Chest pain; Translations: [Chest pain, unspecified] 12-18-2020 Episodic Nutritional deficiencies (20 sources) Vitamin D deficiency; Translations: [Vitamin D deficiency, unspecified] Onset: 06-21-2020 06-21-2020 Chronic Other aftercare (1 source) Post-discharge follow-up; Translations: [Encounter for follow-up examination after completed treatment for conditions other than malignant neoplasm] 02-13-2024 Episodic Other connective tissue disease (4 sources) Swelling of lower limb; Translations: [Other specified soft tissue disorders] 01-02-2024 Episodic Other diseases of veins and lymphatics (1 source) Stasis dermatitis; Translations: [Venous insufficiency (chronic) (peripheral)] 02-04-2024 Episodic Other lower respiratory disease (2 sources) Dyspnea; Translations: [Shortness of breath] 01-02-2024 Episodic Other lower respiratory disease (1 source) Tachypnea; Translations: [Tachypnea, not elsewhere classified] 02-04-2024 Episodic Other lower respiratory disease (1 source) Hypoxemia; Translations: [Hypoxemia] 02-14-2024 Episodic Other nutritional; endocrine; and metabolic disorders (20 sources) Obese class I; Translations: [Obesity, unspecified] Onset: 06-21-2020 06-21-2020 Chronic Other nutritional; endocrine; and metabolic disorders (4 sources) Obese class I; Translations: [Obesity, Class I, BMI 30-34.9] Onset: 06-21-2020 06-21-2020 Other screening for suspected conditions (not mental disorders or infectious disease) (1 source) Viral screening status; Translations: [Special screening examination for viral disease] Episodic Phlebitis; thrombophlebitis and thromboembolism (3 sources) H/O: Deep vein thrombosis; Translations: [Personal history of other venous thrombosis and embolism] Onset: 09-15-2024 03-23-2024 Episodic Pulmonary heart disease (3 sources) Pulmonary hypertension; Translations: [Pulmonary hypertension, unspecified] Onset: 09-15-2024 09-15-2024 Chronic Residual codes; unclassified (1 source) Menopause present; Translations: [Asymptomatic menopause] Chronic Residual codes; unclassified (3 sources) Bilateral lower limb edema; Translations: [Localized edema] 01-02-2024 Episodic Residual codes; unclassified (2 sources) Localized edema; Translations: [Localized edema] Onset: 02-18-2024 Episodic Respiratory failure; insufficiency; arrest (adult) (1 source) Acute hypoxemic respiratory failure; Translations: [Acute respiratory failure with hypoxia] 02-04-2024 Episodic Screening and history of mental health and substance abuse codes (6 sources) Patient encounter status; Translations: [Encounter for screening for depression] Onset: 12-28-2024 12-02-2023 Episodic Systemic lupus erythematosus and connective tissue disorders (20 sources) Temporal arteritis; Translations: [Other giant cell arteritis] Onset: 09-06-2015 06-21-2020 Chronic Thyroid disorders (20 sources) Acquired hypothyroidism; Translations: [Hypothyroidism, unspecified] Onset: 06-21-2020 06-21-2020 Chronic Unclassified (2 sources) Patient encounter status; Translations: [Screening for diabetic retinopathy] Unclassified (1 source) Vaginal yeast infection; Translations: [Vaginal yeast infection] Onset: 12-03-2024 Urinary tract infections (15 sources) Urinary tract infectious disease; Translations: [Urinary tract infection, site not specified] Onset: 01-22-2025 Episodic Past or Other Problems Problem Classification Problem Date Documented Date Episodic/Chronic Other aftercare (2 sources) director long term care (current) use of insulin; Translations: [Type 2 diabetes mellitus with diabetic polyneuropathy, with long-term current use of insulin (HCC)] Onset: 06-21-2020 Episodic Other aftercare (1 source) Encounter for follow-up examination after completed treatment for conditions other than malignant neoplasm; Translations: [Hospital discharge follow-up] Onset: 02-14-2024 Episodic Other connective tissue disease (20 sources) History of giant cell arteritis; Translations: [Personal history of other diseases of the musculoskeletal system and connective tissue] Onset: 09-06-2015 04-26-2022 Episodic Other connective tissue disease (1 source) Pain in left upper arm; Translations: [Pain in left upper arm] Onset: 10-24-2023 Episodic Other lower respiratory disease (1 source) Hypoxemia; Translations: [Hypoxemia] Onset: 02-18-2024 Episodic Pulmonary heart disease (20 sources) Pulmonary embolism; Translations: [Other pulmonary embolism without acute cor pulmonale] Onset: 02-18-2024 02-14-2024 Episodic Results Test Name Value Interpretation Reference Range Facility URINALYSIS, REFLEX MICROSCOP ICon 01-22-2025 Bacteria LM.HPF (Urine sed) [#/Area] Negative Normal Negative [facility] Comment on above: Order Comment: Speci men Type: BLOOD SPECIMEN Ordering Facility: [facility] Address: [address] [place] [address] Performed By: #### 3 024-7, 88022-8, 3016-3, 26209-0 #### [facility] CLIA [id number] [address] [place] [address] [place] Bilirubin Ql (U) Negative Normal Negative [facility] Comment on above: Order Comment: Armondi etienne Type: BLOOD SPECIMEN Ordering Facility: [facility] Address: [address] [place] [address] Performed By: #### 3 024-7, 18359-8, 3016-3, 61714-7 #### [facility] CLIA [id number] [address] [place] [address] [place] Clarity (Unsp spec) Cloudy Abnormal Clear [facility] Comment on above: Order Comment: Speci men Type: BLOOD SPECIMEN Ordering Facility: [facility] Address: [address] [place] [address] Performed By: #### 3 024-7, 03482-3, 3016-3, 46397-5 #### [facility] CLIA [id number] [address] [place] [address] [place] Color (U) Dark Yellow Abnormal Yellow [facility] Comment on above: Order Comment: Speci men Type: BLOOD SPECIMEN Ordering Facility: [facility] Address: [address] [place] [address] Performed By: #### 3 024-7, 15472-9, 3015-3, 53658-9 #### [facility] CLIA [id number] [address] [place] [address] [place] Epithelial cells LM.HPF (Urine sed) [#/Area] Moderate Normal [facility] Comment on above: Order Comment: Speci men Type: BLOOD SPECIMEN Ordering Facility: [facility] Address: [address] [place] [address] Result Comment: Few Performed By: #### 3 024-7, 50245-1, 3015-3, 77079-6 #### [facility] CLIA [id number] [address] [place] [address] [place] Glucose Test strip (U) [Mass/Vol] Negative Normal Negative [facility] Comment on above: Order Comment: Speci men Type: BLOOD SPECIMEN Ordering Facility: [facility] Address: [address] [place] [address] Performed By: #### 3 024-7, 08859-3, 3015-3, 23710-7 #### [facility] CLIA [id number] [address] [place] [address] [place] Hemoglobin Ql (U) 3+ Abnormal Negative [facility] Comment on above: Order Comment: Speci men Type: BLOOD SPECIMEN Ordering Facility: [facility] Address: [address] [place] [address] Performed By: #### 3 024-7, 77301-2, 6-3, 91524-1 #### [facility] CLIA [id number] [address] [place] [address] [place] Hyaline casts (Urine sed) [#/Area] 1-3 /LPF Abnormal 0 /LPF [facility] Comment on above: Order Comment: Speci men Type: BLOOD SPECIMEN Ordering Facility: [facility] Address: [address] [place] [address] Performed By: #### 3 024-7, 68132-5, 3016-3, 73839-2 #### [facility] CLIA [id number] [address] [place] [address] [place] Ketones Ql (U) Negative Normal Negative [facility] Comment on above: Order Comment: Speci men Type: BLOOD SPECIMEN Ordering Facility: [facility] Address: [address] [place] [address] Performed By: #### 3 024-7, 20175-4, 3016-3, 47481-0 #### [facility] CLIA [id number] [address] [place] [address] [place] Leukocyte esterase Test strip Ql (U) 1+ Abnormal Negative [facility] Comment on above: Order Comment: Speci men Type: BLOOD SPECIMEN Ordering Facility: [facility] Address: [address] [place] [address] Performed By: #### 3 024-7, 90012-4, 3016-3, 95574-7 #### [facility] CLIA [id number] [address] [place] [address] [place] Nitrite Ql (U) Negative Normal Negative [facility] Comment on above: Order Comment: Speci men Type: BLOOD SPECIMEN Ordering Facility: [facility] Address: [address] [place] [address] Performed By: #### 3 024-7, 24562-8, 3016-3, 61227-3 #### [facility] CLIA [id number] [address] [place] [address] [place] pH (U) 5.5 [pH] Normal 5.0-8.0 [facility] Comment on above: Order Comment: Speci men Type: BLOOD SPECIMEN Ordering Facility: [facility] Address: [address] [place] [address] Performed By: #### 3 024-7, 24116-9, 3016-3, 48255-8 #### [facility] CLIA [id number] [address] [place] [address] [place] Protein (U) [Mass/Vol] Trace Abnormal Negative [facility] Comment on above: Order Comment: Speci men Type: BLOOD SPECIMEN Ordering Facility: [facility] Address: [address] [place] [address] Performed By: #### 3 024-7, 15800-0, 3016-3, 70586-7 #### [facility] CLIA [id number] [address] [place] [address] [place] RBC LM.HPF (Urine sed) [#/Area] /[HPF] Abnormal 0-2 /HPF [facility] Comment on above: Order Comment: Speci men Type: BLOOD SPECIMEN Ordering Facility: [facility] Address: [address] [place] [address] Performed By: #### 3 024-7, 00131-9, 3016-3, 07747-9 #### [facility] CLIA [id number] [address] [place] [address] [place] Specific gravity (U) [Rel density] 1.019 Normal 1.005-1.030 [facility] Comment on above: Order Comment: Speci men Type: BLOOD SPECIMEN Ordering Facility: [facility] Address: [address] [place] [address] Performed By: #### 3 024-7, 27432-2, 3016-3, 64277-5 #### [facility] CLIA [id number] [address] [place] [address] [place] Urobilinogen Ql (U) 1.0 EU/dL Normal 0.2-1.0 EU/dL [facility] Comment on above: Order Comment: Speci men Type: BLOOD SPECIMEN Ordering Facility: [facility] Address: [address] [place] [address] Performed By: #### 3 024-7, 61422-6, 3016-3, 87394-2 #### [facility] CLIA [id number] [address] [place] [address] WBC LM.HPF (Urine sed) [#/Area] 0-5 /HPF Normal 0-5 /HPF [facility] Comment on above: Order Comment: Speci men Type: BLOOD SPECIMEN Ordering Facility: [facility] Address: [address] [place] [address] Performed By: #### 3 024-7, 59558-2, 3016-3, 92374-2 #### [facility] CLIA [id number] [address] [place] [address] [place] CNPNeisha 12-29-2024 [facility] TARIK BAKER ([id number]) 1945 F Date Time Provider Department 12/29/24 [facility] During your visit today, we recorded the following information about you: Melissa Castro LPN 12/29/2024 1:30 PM Signed Patient calling said pharmacy did not get 2 of the rx's that were sent yesterday. Computer shows escript failed. Reset antibiotic and generic pyridium rx to file. Please advise The patient has been identified by name and date of : Yes Caregiver verified no other encounters exist for this prescription request: Yes Caregiver confirmed with patient/requestor that no other refills are due, in the near future, with this provider at this time: Yes The last office visit in the department: 12/28/2024 Does the patient have a future office visit with this provider/department: Yes 07/01/2025 Requested Prescriptions Pending Prescriptions Disp Refills cefUROXime (CEFTIN) 250 mg tablet 20 tablet 0 Sig: Take 1 tablet by mouth two times a day for 10 days. phenazopyridine (PYRIDIUM) 100 mg tablet 15 tablet 0 Sig: Take 1 tablet by mouth three times a day as needed for up to 5 days. Melissa Castro LPN December 29, 2024 1:29 PM Lindsay Wyatt APRN.REELING MACHINE OPERATOR 12/29/2024 2:14 PM Signed Rocioent Melissa Castro LPN 12/29/2024 2:20 PM Signed Patient calling aware rx's were just sent to the pharmacy via escript. May take a while before pharmacy get it, advised to check with pharmacy in about an hour, with understanding. Allergies As of Date: 12/29/2024 Noted Allergy Reaction PREDNISONE 09/06/2015 14 - Other: See Comments Comments: Sugar went over 900 Date Reviewed: 12/03/2024 Reviewed by: Nury Gagnon MA - Fully Assessed Reason for Visit: Medication Problem [65] rx's failed did not go to pharmacy [Other] Visit Diagnosis:Recurrent UTI (urinary tract infection) [N39.0] Order(s):cefUROXime (CEFTIN) 250 mg tabletTake 1 tablet by mouth two times a day for 10 days.Disp: 20 tabletRfl: 0 phenazopyridine (PYRIDIUM) 100 mg tabletTake 1 tablet by mouth three times a day as needed for up to 5 days.Disp: 15 tabletRfl: 0 Prescriptions as of 12/29/2024 - cefUROXime (CEFTIN) 250 mg tablet Take 1 tablet by mouth two times a day for 10 days. - phenazopyridine (PYRIDIUM) 100 mg tablet Take 1 tablet by mouth three times a day as needed for up to 5 days. - levothyroxine (SYNTHROID) 175 mcg tablet Take 1 tablet by mouth once daily. Take on empty stomach. For Thyroid. - sertraline (ZOLOFT) 50 mg tablet Take 3 tablets by mouth once daily. - insulin NPH injection 25 units in the am and 25 units in the pm. - apixaban (ELIQUIS) 5 mg tab(s) Take 1 tablet by mouth two times a day. - enalapril (VASOTEC) 20 mg tablet Take 1 tablet by mouth once daily. - ergocalciferol 50,000 unit capsule (VITAMIN D2, DRISDOL) Take 1 capsule by mouth one time a week. - Fenofibrate (LOFIBRA) 160 mg tablet Take 1 tablet by mouth once daily. - furosemide (LASIX) 20 mg tablet Take 1 tablet by mouth once daily. - metoprolol tartrate, short acting, (LOPRESSOR) 25 mg tablet Take 1 tablet by mouth two times a day. - red beet root-sour raines ext 250-0.5 mg chew Take 1 tablet by mouth once daily. - vit A,C,A-Biuz-Evedfb (PRESERVISION AREDS) 2,148 mcg-113 mg-45 mg-17.4mg tab Take 1 tablet by mouth daily with breakfast. - multivitamin with minerals (MULTIPLE VITAMINS 55 PLUS ORAL) Take 1 capsule by mouth once daily. - Ascorbic Acid (VITAMIN C) 100 mg tablet - ZINC ORAL Take by mouth. Problem List As Of Date 12/29/2024 Noted Resolved History of temporal arteritis [Z87.39] 09/06/2015 Type 2 diabetes mellitus with hyperglycemia, wi*09/06/2015 Diabetes (HCC) [E11.9] Hypothyroidism, acquired [E03.9] 06/21/2020 Hypertriglyceridemia [E78.1] 06/21/2020 Obesity, Class I, BMI 30-34.9 [E66.811] 06/21/2020 Vitamin D deficiency [E55.9] 06/21/2020 Primary hypertension [I10] 12/12/2020 History of non-ST elevation myocardial infarcti*04/10/2022 Chronic kidney disease, stage 3a (HCC) [N18.31] 11/08/2022 06/12/2024 Bilateral pulmonary embolism (HCC) [I26.99] 06/12/2024 Prescriptions ordered this encounter Disp Refills Start End CEFUROXIME AXETIL 250 MG TABLET 20 t* 0 12/29/2024 01/08/2025 Route: PO Sig: Take 1 tablet by mouth two times a day for 10 days. PHENAZOPYRIDINE 100 MG TABLET 15 t* 0 12/29/2024 01/03/2025 Route: PO Sig: Take 1 tablet by mouth three times a day as needed for up to 5 days. Medications Discontinued During This Encounter Prescriptions - cefUROXime (CEFTIN) 250 mg tablet (Discontinued) Take 1 tablet by mouth two times a day for 10 days. - phenazopyridine (PYRIDIUM) 100 mg tablet (Discontinued) Take 1 tablet by mouth three times a day as needed for up to 5 days. Encounter Status:Closed by MELISSA CASTRO on 12/29/24 [facility] Bacteria Ur Culton Bacteria identified Cx Nom (U) CULTURE, URINE: Mixed microbiota, including predominantly: ORGANISM ID: 1 >=100,000 CFU/ml Escherichia coli ORGANISM ID: 1 (ESCHERICHIA COLI) ANTIBIOTIC INTERPRETATION PATITO STATUS REFERENCE RANGE Ampicillin R >=32 F Susceptible <=8 , Intermediate >8 , Resistant >16 Cefazolin S <=4 F Susceptible 0-16 , Intermediate <0 or >16 , Resistant >16 For uncomplicated urinary tract infections, cefazolin results can be used to predict susceptibility or resistance to cephalexin. Ceftriaxone S <=1 F Susceptible <=1 , Intermediate >1 , Resistant >=4 Cefepime S <=1 F Susceptible <=2 , Susceptible-Dose Dependent >2 , Resistant >=16 Ertapenem S <=0.5 F Susceptible <=0.5 , Intermediate >.5 , Resistant >1 Meropenem S <=0.25 F Susceptible <=1 , Intermediate >1 , Resistant >2 Ampicillin/Sulbact I 16 F Susceptible <=8 , Intermediate >8 , Resistant >16 Piperacillin/Tazobac S <=4 F Susceptible <16 , Susceptible-Dose Dependent >=16 , Resistant >=32 Gentamicin S <=1 F Susceptible <=2 , Intermediate >2 , Resistant >=8 Tobramycin S <=1 F Susceptible <4 , Intermediate >=4 , Resistant >=8 Trimeth sulfameth S <=20 F Susceptible <=40 , Resistant >40 Ciprofloxacin R >=4 F Susceptible <0.5 , Intermediate >=.5 , Resistant >=1 Nitrofurantoin S <=16 F Susceptible <=32 , Intermediate >32 , Resistant >64 Abnormal [facility] Comment on above: Performed By: #### 3 024-7, 71767-7, 3016-3, 91348-9 #### [facility] CLIA [id number] [address] [place] [address] [place] [facility] CNOVon 12-28-2024 CNOV Office Visit ([facility]) TARIK BAKER ([id number]) 1945 F Date Time Provider Department 12/28/24 1:40 PM LINDSAY WYATT [facility] During your visit today, we recorded the following information about you: Pulse Blood pressure 74/minute 138/70 Lindsay Wyatt APRN.REELING MACHINE OPERATOR 12/28/2024 2:33 PM Signed This is a 79 year old female who presents today with: Patient presents with: 6 Month Exam HISTORY OF PRESENT ILLNESS: Tarik Baker is a 79 year old female. Patient presents with: 6 Month Exam Alejandra Baker is a 79-year-old female with a history of anxiety, DM, and hypothyroidism, presenting for evaluation of recurrent urinary symptoms and fatigue. Urinary Symptoms: - Recurrent urinary symptoms after running out of medication. - Reports dysuria and hematuria. - Recent urine sample submitted; unsure if it was processed. Fatigue: - Reports significant fatigue, stating she wanted to sleep all day and all night. - Not currently experiencing fatigue. B12 Deficiency: - History of chronic B12 deficiency. - Previously took B12 supplements but not currently taking them. - Consumes a B-complex vitamin. Anxiety: - History of anxiety, managed with Zoloft. - Recent anxiety attack requiring an additional dose of medication. - Increased stress due to 's upcoming heart surgery and concerns about finding someone to stay with her during his absence. Vision Impairment: - Legally blind in the left eye; can perceive light but not objects. - Has a cataract in the right eye; has not seen an eye doctor recently. - Able to watch TV without difficulty. Diabetes Mellitus: - Monitors blood glucose levels daily, primarily in the evening after dinner. - Does not check blood glucose levels in the morning. - Dinner is usually between 17:00 and 18:00; bedtime around 02:00. Hypothyroidism: - On thyroid replacement therapy. PAST MEDICAL HISTORY: PAST MEDICAL HISTORY Diagnosis Date Diabetes (HCC) Essential hypertension History of cardiovascular stress test 12/2020 ef 60, no ischemia PAST SURGICAL HISTORY Procedure Laterality Date TUBAL LIGATION HX ALLERGIES Prednisone MEDICATIONS Current Outpatient Medications Medication Sig insulin NPH injection 25 units in the am and 25 units in the pm. potassium chloride ER (KLOR-CON) 20 mEq tablet Take 20 mEq by mouth once daily. Started by Cardio due to being on Lasix apixaban (ELIQUIS) 5 mg tab(s) Take 1 tablet by mouth two times a day. enalapril (VASOTEC) 20 mg tablet Take 1 tablet by mouth once daily. ergocalciferol 50,000 unit capsule (VITAMIN D2, DRISDOL) Take 1 capsule by mouth one time a week. Fenofibrate (LOFIBRA) 160 mg tablet Take 1 tablet by mouth once daily. furosemide (LASIX) 20 mg tablet Take 1 tablet by mouth once daily. levothyroxine (SYNTHROID) 175 mcg tablet Take 1 tablet by mouth once daily. Take on empty stomach. For Thyroid. metoprolol tartrate, short acting, (LOPRESSOR) 25 mg tablet Take 1 tablet by mouth two times a day. sertraline (ZOLOFT) 100 mg tablet Take 1 tablet by mouth once daily. red beet root-sour raines ext 250-0.5 mg chew Take 1 tablet by mouth once daily. vit A,C,Y-Ibnu-Okikss (PRESERVISION AREDS) 2,148 mcg-113 mg-45 mg-17.4mg tab Take 1 tablet by mouth daily with breakfast. multivitamin with minerals (MULTIPLE VITAMINS 55 PLUS ORAL) Take 1 capsule by mouth once daily. Ascorbic Acid (VITAMIN C) 100 mg tablet ZINC ORAL Take by mouth. apixaban (ELIQUIS) 5 mg tab(s) Take 1 tablet by mouth two times a day. No current facility-administere d medications for this visit. FAMILY HISTORY Problem Relation Age of Onset No Known Problems Mother No Known Problems Father No Known Problems Maternal Grandmother No Known Problems Maternal Grandfather No Known Problems Paternal Grandmother No Known Problems Paternal Grandfather SOCIAL HISTORY[1] REVIEW OF SYSTEMS Constitutional: (-) weight loss, (-) weight gain, (-) fever Head: (-) headache Eyes: (+) decreased vision left eye, (-) visual changes Neck: (-) neck swelling Cardiovascular: (+) intermittent chest pain, (+) palpitations, (-) leg swelling Respiratory: (-) dyspnea, (-) cough, (-) wheezing Gastrointestinal: (-) nausea, (-) vomiting Genitourinary: (+) dysuria, (+) urinary pain Musculoskeletal: (-) arthralgia Neurological: (+) gait instability, (+) intermittent foot numbness, (-) syncope, (-) seizures, (-) tremor Psychiatric: (+) decreased interest, (+) anxiety Endocrine: (-) polydipsia EXAM: BP 138/70 Pulse 74 SpO2 98% PHYSICAL EXAM: GENERAL: NAD, alert and oriented x3. SKIN: Unremarkable, no rash or skin lesions. Dry skin on feet and legs. HEAD: Normocephalic. NECK: Supple, no lymphadenopathy, normal thyroid, no carotid bruits. LUNGS: Clear to auscultation bilaterally, no wheezes/rhonchi/rale s. HEART: R (more content not included)... Normal [facility] 12-28-2024 [facility] Telephone ([facility]) TARIK BAKER ([id number]) 1945 F Date Time Provider Department 12/28/24 LEE SYED During your visit today, we recorded the following information about you: Lee Syed, WAGE AND SALARY SPECIALIST 12/28/2024 3:47 PM Signed Amber called patient to discuss respite care needs. No answer and vmail is full. Sw will try call another time. Lee Syed, WAGE AND SALARY SPECIALIST 12/28/2024 4:32 PM Signed Spouse notes that he is going to have to go to the hospital for 2-3 days in a month and will need someone to stay with patient. Amber spoke with patient spouse and he requests that Sw mail him home director of critical care agency brochures. Amber will mail [facility], [facility] brochures along with [facility] Resource Guide to patient home. Amber noted the other option would be respite at a half-way facility. That info will be in [facility] Resource Guide. Amber confirmed patient address in system. Amber will mail out resource info to patient home along with this Sw number for any further questions or needs. Allergies As of Date: 12/28/2024 Noted Allergy Reaction PREDNISONE 09/06/2015 14 - Other: See Comments Comments: Sugar went over 900 Date Reviewed: 12/03/2024 Reviewed by: Nury Gagnon MA - Fully Assessed Prescriptions as of 12/29/2024 - cefUROXime (CEFTIN) 250 mg tablet Take 1 tablet by mouth two times a day for 10 days. - phenazopyridine (PYRIDIUM) 100 mg tablet Take 1 tablet by mouth three times a day as needed for up to 5 days. - levothyroxine (SYNTHROID) 175 mcg tablet Take 1 tablet by mouth once daily. Take on empty stomach. For Thyroid. - sertraline (ZOLOFT) 50 mg tablet Take 3 tablets by mouth once daily. - insulin NPH injection 25 units in the am and 25 units in the pm. - apixaban (ELIQUIS) 5 mg tab(s) Take 1 tablet by mouth two times a day. - enalapril (VASOTEC) 20 mg tablet Take 1 tablet by mouth once daily. - ergocalciferol 50,000 unit capsule (VITAMIN D2, DRISDOL) Take 1 capsule by mouth one time a week. - Fenofibrate (LOFIBRA) 160 mg tablet Take 1 tablet by mouth once daily. - furosemide (LASIX) 20 mg tablet Take 1 tablet by mouth once daily. - metoprolol tartrate, short acting, (LOPRESSOR) 25 mg tablet Take 1 tablet by mouth two times a day. - red beet root-sour raines ext 250-0.5 mg chew Take 1 tablet by mouth once daily. - vit A,C,I-Bgut-Jjrvum (PRESERVISION AREDS) 2,148 mcg-113 mg-45 mg-17.4mg tab Take 1 tablet by mouth daily with breakfast. - multivitamin with minerals (MULTIPLE VITAMINS 55 PLUS ORAL) Take 1 capsule by mouth once daily. - Ascorbic Acid (VITAMIN C) 100 mg tablet - ZINC ORAL Take by mouth. Problem List As Of Date 12/28/2024 Noted Resolved History of temporal arteritis [Z87.39] 09/06/2015 Type 2 diabetes mellitus with hyperglycemia, wi*09/06/2015 Diabetes (HCC) [E11.9] Hypothyroidism, acquired [E03.9] 06/21/2020 Hypertriglyceridemia [E78.1] 06/21/2020 Obesity, Class I, BMI 30-34.9 [E66.811] 06/21/2020 Vitamin D deficiency [E55.9] 06/21/2020 Primary hypertension [I10] 12/12/2020 History of non-ST elevation myocardial infarcti*04/10/2022 Chronic kidney disease, stage 3a (HCC) [N18.31] 11/08/2022 06/12/2024 Bilateral pulmonary embolism (HCC) [I26.99] 06/12/2024 Encounter Status:Closed by LEE SYED on 12/29/24 Normal [facility] ALBUMIN/CREATININE RATIO, UR [place] 12-17-2024 Albumin DL <= 20 mg/L (U) [Mass/Vol] 12.9 mg/L Normal [facility] Comment on above: Order Comment: Speci men Type: BLOOD SPECIMEN Ordering Facility: [facility] Address: [address] [place] [address] Performed By: #### 3 024-7, 95582-5, 3016-3, 94230-7 #### [facility] CLIA [id number] [address] [place] [address] [place] Albumin/Creatinine (U) [Mass ratio] 32 mg/g High <30 [facility] Comment on above: Order Comment: Speci men Type: BLOOD SPECIMEN Ordering Facility: [facility] Address: [address] [place] [address] Result Comment: Adul t Male and Female Nephrotic Criteria: <30 mg/g is considered normal to mildly increased 30-300 mg/g is considered moderately increased >300 mg/g is considered severely increased KDIGO. (2013). KDIGO 2012 Clinical Practice Guideline for the Evaluation and Management of Chronic Kidney Disease. Official Journal of the International Society of Nephrology, 3(1), 1-150. Performed By: #### 3 024-7, 45395-2, 3016-3, 99802-4 #### [facility] CLIA [id number] [address] [place] [address] [place] Creatinine (U) [Mass/Vol] 40.0 mg/dL Normal 20.0-300.0 [facility] Comment on above: Order Comment: Speci men Type: BLOOD SPECIMEN Ordering Facility: [facility] Address: [address] [place] [address] Performed By: #### 3 024-7, 93171-6, 3016-3, 84992-6 #### [facility] CLIA [id number] [address] [place] [address] [place] CBC W Auto Differential pane l (Bld)on 12-17-2024 Basophils (Bld) [#/Vol] 0.03 10*3/uL Normal <0.11 [facility] Comment on above: Order Comment: Speci men Type: BLOOD SPECIMEN Ordering Facility: [facility] Address: [address] [place] [address] Performed By: #### 3 024-7, 91272-1, 3016-3, 79912-1 #### [facility] CLIA [id number] [address] [place] [address] [place] Basophils/100 WBC (Bld) 0.5 % Normal [facility] Comment on above: Order Comment: Speci men Type: BLOOD SPECIMEN Ordering Facility: [facility] Address: [address] [place] [address] Performed By: #### 3 024-7, 91444-1, 3015-3, 71694-9 #### [facility] CLIA [id number] [address] [place] [address] [place] Differential cell count method Nom (Bld) Auto Normal [facility] Comment on above: Order Comment: Speci men Type: BLOOD SPECIMEN Ordering Facility: [facility] Address: [address] [place] [address] Performed By: #### 3 024-7, 24243-8, 3015-3, 88361-7 #### [facility] CLIA [id number] [address] [place] [address] [place] Eosinophils (Bld) [#/Vol] 0.31 10*3/uL Normal <0.46 [facility] Comment on above: Order Comment: Speci men Type: BLOOD SPECIMEN Ordering Facility: [facility] Address: [address] [place] [address] Performed By: #### 3 024-7, 03203-5, 3015-3, 05601-0 #### [facility] CLIA [id number] [address] [place] [address] [place] Eosinophils/100 WBC (Bld) 5.0 % Normal [facility] Comment on above: Order Comment: Speci men Type: BLOOD SPECIMEN Ordering Facility: [facility] Address: [address] [place] [address] Performed By: #### 3 024-7, 32132-8, 3015-3, 45982-1 #### [facility] CLIA [id number] [address] [place] [address] [place] Erythrocyte distribution width (RBC) [Ratio] 13.0 % Normal 11.5-15.0 [facility] Comment on above: Order Comment: Speci men Type: BLOOD SPECIMEN Ordering Facility: [facility] Address: [address] [place] [address] Performed By: #### 3 024-7, 96567-1, 3015-3, 73625-8 #### [facility] CLIA [id number] [address] [place] [address] [place] Hematocrit (Bld) [Volume fraction] 32.3 % Low 36.0-46.0 [facility] Comment on above: Order Comment: Speci men Type: BLOOD SPECIMEN Ordering Facility: [facility] Address: [address] [place] [address] Performed By: #### 3 024-7, 55483-4, 3, 50563-5 #### [facility] CLIA [id number] [address] [place] [address] [place] Hemoglobin (Bld) [Mass/Vol] 11.0 g/dL Low 11.5-15.5 [facility] Comment on above: Order Comment: Speci men Type: BLOOD SPECIMEN Ordering Facility: [facility] Address: [address] [place] [address] Performed By: #### 3 024-7, 87338-8, 6-3, 20463-6 #### [facility] CLIA [id number] [address] [place] [address] [place] Immature granulocytes (Bld) [#/Vol] 0.04 10*3/uL Normal <0.10 [facility] Comment on above: Order Comment: Speci men Type: BLOOD SPECIMEN Ordering Facility: [facility] Address: [address] [place] [address] Performed By: #### 3 024-7, 28755-5, 3016-3, 83651-0 #### [facility] CLIA [id number] [address] [place] [address] [place] Immature granulocytes/100 WBC (Bld) 0.6 % Normal [facility] Comment on above: Order Comment: Speci men Type: BLOOD SPECIMEN Ordering Facility: [facility] Address: [address] [place] [address] Performed By: #### 3 024-7, 47858-6, 6-3, 76358-2 #### [facility] CLIA [id number] [address] [place] [address] [place] Lymphocytes (Bld) [#/Vol] 1.29 10*3/uL Normal 1.00-4.00 [facility] Comment on above: Order Comment: Speci men Type: BLOOD SPECIMEN Ordering Facility: [facility] Address: [address] [place] [address] Performed By: #### 3 024-7, 23681-3, 6-3, 93769-0 #### [facility] CLIA [id number] [address] [place] [address] [place] Lymphocytes/100 WBC (Bld) 20.6 % Normal [facility] Comment on above: Order Comment: Speci men Type: BLOOD SPECIMEN Ordering Facility: [facility] Address: [address] [place] [address] Performed By: #### 3 024-7, 83456-8, 3016-3, 77921-6 #### [facility] CLIA [id number] [address] [place] [address] [place] MCH (RBC) [Entitic mass] 34.3 pg High 26.0-34.0 [facility] Comment on above: Order Comment: Speci men Type: BLOOD SPECIMEN Ordering Facility: [facility] Address: [address] [place] [address] Performed By: #### 3 024-7, 88695-2, 3016-3, 21354-5 #### [facility] CLIA [id number] [address] [place] [address] [place] MCHC (RBC) [Mass/Vol] 34.1 g/dL Normal 30.5-36.0 [facility] Comment on above: Order Comment: Speci men Type: BLOOD SPECIMEN Ordering Facility: [facility] Address: [address] [place] [address] Performed By: #### 3 024-7, 99237-1, 3016-3, 68713-3 #### [facility] CLIA [id number] [address] [place] [address] [place] MCV (RBC) [Entitic vol] 100.6 fL High 80.0-100.0 [facility] Comment on above: Order Comment: Speci men Type: BLOOD SPECIMEN Ordering Facility: [facility] Address: [address] [place] [address] Performed By: #### 3 024-7, 61393-5, 6-3, 84714-4 #### [facility] CLIA [id number] [address] [place] [address] [place] Monocytes (Bld) [#/Vol] 0.54 10*3/uL Normal <0.87 [facility] Comment on above: Order Comment: Speci men Type: BLOOD SPECIMEN Ordering Facility: [facility] Address: [address] [place] [address] Performed By: #### 3 024-7, 77813-2, 3016-3, 60006-6 #### [facility] CLIA [id number] [address] [place] [address] [place] Monocytes/100 WBC (Bld) 8.6 % Normal [facility] Comment on above: Order Comment: Speci men Type: BLOOD SPECIMEN Ordering Facility: [facility] Address: [address] [place] [address] Performed By: #### 3 024-7, 50930-2, 3016-3, 48547-7 #### [facility] CLIA [id number] [address] [place] [address] [place] Neutrophils (Bld) [#/Vol] 4.04 10*3/uL Normal 1.45-7.50 [facility] Comment on above: Order Comment: Speci men Type: BLOOD SPECIMEN Ordering Facility: [facility] Address: [address] [place] [address] Performed By: #### 3 024-7, 21204-4, 3016-3, 36452-1 #### [facility] CLIA [id number] [address] [place] [address] [place] Neutrophils/100 WBC (Bld) 64.7 % Normal [facility] Comment on above: Order Comment: Speci men Type: BLOOD SPECIMEN Ordering Facility: [facility] Address: [address] [place] [address] Performed By: #### 3 024-7, 25380-5, 3016-3, 92181-0 #### [facility] CLIA [id number] [address] [place] [address] [place] Nucleated RBC (Bld) [#/Vol] 10*3/uL Normal <0.01 [facility] Comment on above: Order Comment: Speci men Type: BLOOD SPECIMEN Ordering Facility: [facility] Address: [address] [place] [address] Performed By: #### 3 024-7, 60874-0, 3016-3, 82696-2 #### [facility] CLIA [id number] [address] [id number] [address] [place] Nucleated RBC/100 WBC (Bld) [Ratio] 0.0 /100 WBC Normal [facility] Comment on above: Order Comment: Speci men Type: BLOOD SPECIMEN Ordering Facility: [facility] Address: [address] [place] [address] Performed By: #### 3 024-7, 60110-1, 3016-3, 29805-8 #### [facility] CLIA [id number] [address] [place] [address] [place] Platelet mean volume (Bld) [Entitic vol] 12.0 fL Normal 9.0-12.7 [facility] Comment on above: Order Comment: Speci men Type: BLOOD SPECIMEN Ordering Facility: [facility] Address: [address] [place] [address] Performed By: #### 3 024-7, 04159-3, 3016-3, 15089-3 #### [facility] CLIA [id number] [address] [place] [address] [place] Platelets (Bld) [#/Vol] 252 10*3/uL Normal 150-400 [facility] Comment on above: Order Comment: Speci men Type: BLOOD SPECIMEN Ordering Facility: [facility] Address: [address] [place] [address] Performed By: #### 3 024-7, 61510-3, 3016-3, 22598-2 #### [facility] CLIA [id number] [address] [place] [address] [place] RBC (Bld) [#/Vol] 3.21 10*6/uL Low 3.90-5.[address] [facility] Comment on above: Order Comment: Speci men Type: BLOOD SPECIMEN Ordering Facility: [facility] Address: [address] [place] [address] Performed By: #### 3 024-7, 08115-4, 3016-3, 48334-4 #### [facility] CLIA [id number] [address] [place] [address] [place] WBC (Bld) [#/Vol] 6.25 10*3/uL Normal 3.70-11.[address] [facility] Comment on above: Order Comment: Speci men Type: BLOOD SPECIMEN Ordering Facility: [facility] Address: [address] [place] [address] Performed By: #### 3 024-7, 90935-1, 3016-3, 63722-4 #### [facility] CLIA [id number] [address] [place] [address] [place] Comprehensive metabolic 2000 panelon 12-17-2024 Albumin [Mass/Vol] 4.1 g/dL Normal 3.9-4.9 [facility] Comment on above: Order Comment: Speci men Type: BLOOD SPECIMEN Ordering Facility: [facility] Address: [address] [place] [address] Performed By: #### 3 024-7, 27022-9, 3016-3, 01658-0 #### [facility] CLIA [id number] [address] [place] [address] [place] ALP [Catalytic activity/Vol] 40 U/L Normal 34-123 [facility] Comment on above: Order Comment: Speci men Type: BLOOD SPECIMEN Ordering Facility: [facility] Address: [address] [place] [address] Performed By: #### 3 024-7, 57039-4, 3016-3, 85301-6 #### [facility] CLIA [id number] [address] [place] [address] [place] ALT [Catalytic activity/Vol] 30 U/L Normal 7-38 [facility] Comment on above: Order Comment: Speci men Type: BLOOD SPECIMEN Ordering Facility: [facility] Address: [address] [place] [address] Performed By: #### 3 024-7, 59762-9, 3016-3, 92096-4 #### [facility] CLIA [id number] [address] [place], [place] [id number] [place] Anion gap [Moles/Vol] 12 mmol/L Normal 8-15 [facility] Comment on above: Order Comment: Speci men Type: BLOOD SPECIMEN Ordering Facility: [facility] Address: [address] [place] [address] Performed By: #### 3 024-7, 82816-6, 3016-3, 19495-0 #### [facility] CLIA [id number] [address] [place] [address] [place] AST [Catalytic activity/Vol] 31 U/L Normal 13-35 [facility] Comment on above: Order Comment: Speci men Type: BLOOD SPECIMEN Ordering Facility: [facility] Address: [address] [place] [address] Performed By: #### 3 024-7, 99126-4, 3016-3, 87009-0 #### [facility] CLIA [id number] [address] [place] [address] [place] Bilirubin [Mass/Vol] mg/dL Low 0.2-1.3 [facility] Comment on above: Order Comment: Speci men Type: BLOOD SPECIMEN Ordering Facility: [facility] Address: [address] [place] [address] Performed By: #### 3 024-7, 76026-0, 3016-3, 66597-4 #### [facility] CLIA [id number] [address] [place] [address] [place] Calcium [Mass/Vol] 9.5 mg/dL Normal 8.5-10.2 [facility] Comment on above: Order Comment: Speci men Type: BLOOD SPECIMEN Ordering Facility: [facility] Address: [address] [place] [address] Performed By: #### 3 024-7, 90620-2, 3016-3, 56773-8 #### [facility] CLIA [id number] [address] [place] [address] [place] Chloride [Moles/Vol] 104 mmol/L Normal 98-107 [facility] Comment on above: Order Comment: Speci men Type: BLOOD SPECIMEN Ordering Facility: [facility] Address: [address] [place] [address] Performed By: #### 3 024-7, 91658-9, 3016-3, 42418-0 #### [facility] CLIA [id number] [address] [place] [address] [place] CO2 [Moles/Vol] 20 mmol/L Low 22-30 [facility] Comment on above: Order Comment: Speci men Type: BLOOD SPECIMEN Ordering Facility: [facility] Address: [address] [place] [address] Performed By: #### 3 024-7, 30056-1, 3016-3, 55003-0 #### [facility] CLIA [id number] [address] [place] [address] [place] Creatinine [Mass/Vol] 1.23 mg/dL High 0.58-0.96 [facility] Comment on above: Order Comment: Speci men Type: BLOOD SPECIMEN Ordering Facility: [facility] Address: [address] [place] [address] Performed By: #### 3 024-7, 44869-8, 3016-3, 78792-8 #### [facility] CLIA [id number] [address] [place] [address] [place] eGFRcr SerPlBld CKD-EPI 2020 45 mL/min/1.73m??? Low >=60 [facility] Comment on above: Order Comment: Speci men Type: BLOOD SPECIMEN Ordering Facility: [facility] Address: [address] [place] [address] Result Comment: Elizabeth mated Glomerular Filtration Rate (eGFR) is calculated using the 2020 CKD-EPI creatinine equation. This equation utilizes serum creatinine, sex, and age as parameters. The creatinine assay has traceable calibration to isotope dilution-mass spectrometry. Refer to KDIGO guidelines for clinical interpretation. In patients with unstable renal function, e.g. those with acute kidney injury, the eGFR may not accurately reflect actual GFR. Performed By: #### 3 024-7, 44665-9, 6-3, 61933-3 #### [facility] CLIA [id number] [address] [place] [address] [place] Glucose [Mass/Vol] 211 mg/dL High 74-99 [facility] Comment on above: Order Comment: Leodan clifton Type: BLOOD SPECIMEN Ordering Facility: [facility] Address: [address] [place] [address] Result Comment: The [place] Diabetes Association (ADA) provides guidance for cutoff values for fasting glucose and random glucose. The ADA defines fasting as no caloric intake for at least 8 hours. Fasting plasma glucose results between 100 to 125 mg/dL indicate increased risk for diabetes (prediabetes). Fasting plasma glucose results greater than or equal to 126 mg/dL meet the criteria for diagnosis of diabetes. In the absence of unequivocal hyperglycemia, results should be confirmed by repeat testing. In a patient with classic symptoms of hyperglycemia or hyperglycemic crisis, random plasma glucose results greater than or equal to 200 mg/dL meet the criteria for diagnosis of diabetes. Reference: Standards of Medical Care in Diabetes 2016, [place] Diabetes Association. Diabetes Care. 2016.39(Suppl 1). Performed By: #### 3 024-7, 98397-4, 3015-3, 25603-3 #### [facility] CLIA [id number] [address] [place] [address] [place] Potassium [Moles/Vol] 5.4 mmol/L High 3.7-5.1 [facility] Comment on above: Order Comment: Leodan clifton Type: BLOOD SPECIMEN [facility]ing Facility: [facility] Address: [address] [place] [address] Performed By: #### 3 024-7, 44042-8, 3015-3, 13944-0 #### [facility] CLIA [id number] [address] [place] [address] [place] Protein [Mass/Vol] 7.5 g/dL Normal 6.3-8.0 [facility] Comment on above: Order Comment: Speci men Type: BLOOD SPECIMEN Ordering Facility: [facility] Address: [address] [place] [address] Performed By: #### 3 024-7, 82632-3, 3016-3, 34524-2 #### [facility] CLIA [id number] [address] [place] [address] [place] Sodium [Moles/Vol] 136 mmol/L Normal 136-144 [facility] Comment on above: Order Comment: Speci men Type: BLOOD SPECIMEN [facility]ing Facility: [facility] Address: [address] [place] [address] Performed By: #### 3 024-7, 81809-0, 3016-3, 97638-8 #### [facility] CLIA [id number] [address] [place] [address] [place] Urea nitrogen [Mass/Vol] 56 mg/dL High 7-21 [facility] Comment on above: Order Comment: Speci men Type: BLOOD SPECIMEN Ordering Facility: [facility] Address: [address] [place] [address] Performed By: #### 3 024-7, 85590-9, 3016-3, 66714-6 #### [facility] CLIA [id number] [address] [place] [address] [place] HbA1c (Bld)on 12-17-2024 Average glucose Estimated from glycated hemoglobin (Bld) [Mass/Vol] 180 mg/dL Normal [facility] Comment on above: Order Comment: Speci men Type: BLOOD SPECIMEN [facility]ing Facility: [facility] Address: [address] [place] [address] Result Comment: eAG: (Estimated average glucose) is a calculated value from HgbA1c and is solar sales representative and assessor of the average blood glucose level in the last 2-3 month period. Performed By: #### 3 024-7, 97219-6, 3016-3, 35699-7 #### [facility] CLIA [id number] [address] [place] [address] [place] HbA1c (Bld) [Mass fraction] 7.9 % High 4.3-5.6 [facility] Comment on above: Order Comment: Speci men Type: BLOOD SPECIMEN [facility]ing Facility: [facility] Address: [address] [place] [address] Result Comment: [place] Diabetes Association guidelines indicate that patients with HgbA1c in the range 5.7-6.4% are at increased risk for development of diabetes, and intervention by lifestyle modification may be beneficial. HgbA1c greater or equal to 6.5% is considered diagnostic of diabetes. Performed By: #### 3 024-7, 08415-6, 3015-3, 18932-5 #### [facility] CLIA [id number] [address] [place] [address] [place] TSH SerPl-aCncon 12-17-2024 TSH Qn 1.490 m[IU]/L Normal 0.270-4.200 [facility] Comment on above: Order Comment: Speci men Type: BLOOD SPECIMEN [facility]ing Facility: [facility] Address: [address] [place] [address] Performed By: #### 3 024-7, 82712-4, 3016-3, 54155-6 #### [facility] CLIA [id number] [address] [place] [address] [place] URINALYSIS, REFLEX MICROSCOP ICon 12-17-2024 Bacteria LM.HPF (Urine sed) [#/Area] Negative Normal Negative [facility] Comment on above: Order Comment: Speci men Type: BLOOD SPECIMEN Ordering Facility: [facility] Address: [address] [place] [address] Performed By: #### 3 024-7, 70992-6, 3016-3, 24719-6 #### [facility] CLIA [id number] [address] [place] [address] [place] Bilirubin Ql (U) Negative Normal Negative [facility] Comment on above: Order Comment: Speci men Type: BLOOD SPECIMEN Ordering Facility: [facility] Address: [address] [place] [address] Performed By: #### 3 024-7, 11952-7, 3016-3, 61465-5 #### [facility] CLIA [id number] [address] [place] [address] [place] Clarity (Unsp spec) Clear Normal Clear [facility] Comment on above: Order Comment: Speci men Type: BLOOD SPECIMEN Ordering Facility: [facility] Address: [address] [place] [address] Performed By: #### 3 024-7, 05290-5, 3016-3, 21635-6 #### [facility] CLIA [id number] [address] [place] [address] [place] Color (U) Yellow Normal Yellow [facility] Comment on above: Order Comment: Speci men Type: BLOOD SPECIMEN Ordering Facility: [facility] Address: [address] [place] [address] Performed By: #### 3 024-7, 69250-7, 3016-3, 95241-1 #### [facility] CLIA [id number] [address] [place] [address] [place] Epithelial cells LM.HPF (Urine sed) [#/Area] None Seen Normal [facility] Comment on above: Order Comment: Speci men Type: BLOOD SPECIMEN Ordering Facility: [facility] Address: [address] [place] [address] Performed By: #### 3 024-7, 52806-0, 3016-3, 46169-1 #### [facility] CLIA [id number] [address] [place] [address] [place] Glucose Test strip (U) [Mass/Vol] Negative Normal Negative [facility] Comment on above: Order Comment: Speci men Type: BLOOD SPECIMEN Ordering Facility: [facility] Address: [address] [place] [address] Performed By: #### 3 024-7, 70197-4, 3015-3, 24785-0 #### [facility] CLIA [id number] [address] [place] [address] [place] Hemoglobin Ql (U) 2+ Abnormal Negative [facility] Comment on above: Order Comment: Speci men Type: BLOOD SPECIMEN Ordering Facility: [facility] Address: [address] [place] [address] Performed By: #### 3 024-7, 14311-1, 3015-3, 76232-5 #### [facility] CLIA [id number] [address] [place] [address] [place] Hyaline casts (Urine sed) [#/Area] 4-10 /LPF Abnormal 0 /LPF [facility] Comment on above: Order Comment: Speci men Type: BLOOD SPECIMEN Ordering Facility: [facility] Address: [address] [place] [address] Performed By: #### 3 024-7, 60220-5, 3, 28094-3 #### [facility] CLIA [id number] [address] [place] [address] [place] Ketones Ql (U) Negative Normal Negative [facility] Comment on above: Order Comment: Speci men Type: BLOOD SPECIMEN Ordering Facility: [facility] Address: [address] [place] [address] Performed By: #### 3 024-7, 54240-0, 3015-3, 91263-3 #### [facility] CLIA [id number] [address] [place] [address] [place] Leukocyte esterase Test strip Ql (U) Trace Abnormal Negative [facility] Comment on above: Order Comment: Speci men Type: BLOOD SPECIMEN Ordering Facility: [facility] Address: [address] [place] [address] Performed By: #### 3 024-7, 02236-9, 3016-3, 44574-7 #### [facility] CLIA [id number] [address] [place] [address] [place] Nitrite Ql (U) Negative Normal Negative [facility] Comment on above: Order Comment: Speci men Type: BLOOD SPECIMEN Ordering Facility: [facility] Address: [address] [place] [address] Performed By: #### 3 024-7, 47599-5, 3016-3, 86672-2 #### [facility] CLIA [id number] [address] [place] [address] [place] pH (U) 5.5 [pH] Normal 5.0-8.0 [facility] Comment on above: Order Comment: Speci men Type: BLOOD SPECIMEN Ordering Facility: [facility] Address: [address] [place] [address] Performed By: #### 3 024-7, 63889-0, 3016-3, 31911-4 #### [facility] CLIA [id number] [address] [place] [address] [place] Protein (U) [Mass/Vol] Negative Normal Negative [facility] Comment on above: Order Comment: Speci men Type: BLOOD SPECIMEN Ordering Facility: [facility] Address: [address] [place] [address] Performed By: #### 3 024-7, 54491-9, 3016-3, 16630-6 #### [facility] CLIA [id number] [address] [place] [address] [place] RBC LM.HPF (Urine sed) [#/Area] /[HPF] Abnormal 0-2 /HPF [facility] Comment on above: Order Comment: Speci men Type: BLOOD SPECIMEN Ordering Facility: [facility] Address: [address] [place] [address] Performed By: #### 3 024-7, 00068-6, 3016-3, 27880-2 #### [facility] CLIA [id number] [address] [place] [address] [place] Specific gravity (U) [Rel density] 1.012 Normal 1.005-1.030 [facility] Comment on above: Order Comment: Speci men Type: BLOOD SPECIMEN Ordering Facility: [facility] Address: [address] [place] [address] Performed By: #### 3 024-7, 35581-9, 3016-3, 65586-1 #### [facility] CLIA [id number] [address] [place] [address] [place] Urobilinogen Ql (U) 0.2 EU/dL Normal 0.2-1.0 EU/dL [facility] Comment on above: Order Comment: Speci men Type: BLOOD SPECIMEN Ordering Facility: [facility] Address: [address] [place] [address] Performed By: #### 3 024-7, 84206-2, 3016-3, 48151-5 #### [facility] CLIA [id number] [address] [place] [address] [place] WBC LM.HPF (Urine sed) [#/Area] 0-5 /HPF Normal 0-5 /HPF [facility] Comment on above: Order Comment: Speci men Type: BLOOD SPECIMEN Ordering Facility: [facility] Address: [address] [place] [address] Performed By: #### 3 024-7, 96772-7, 3016-3, 67136-2 #### [facility] CLIA [id number] [address] [place] [address] [place] Bacteria Ur Culton 5 Bacteria identified Cx Nom (U) ORGANISM ID: 1 >=100,000 CFU/ml Escherichia coli ORGANISM ID: 1 (ESCHERICHIA COLI) ANTIBIOTIC INTERPRETATION PATITO STATUS REFERENCE RANGE Ampicillin I 16 F Susceptible <=8 , Intermediate >8 , Resistant >16 Cefazolin S <=4 F Susceptible 0-16 , Intermediate <0 or >16 , Resistant >16 For uncomplicated urinary tract infections, cefazolin results can be used to predict susceptibility or resistance to cephalexin. Ceftriaxone S <=1 F Susceptible <=1 , Intermediate >1 , Resistant >=4 Cefepime S <=1 F Susceptible <=2 , Susceptible-Dose Dependent >2 , Resistant >=16 Ertapenem S <=0.5 F Susceptible <=0.5 , Intermediate >.5 , Resistant >1 Meropenem S <=0.25 F Susceptible <=1 , Intermediate >1 , Resistant >2 Ampicillin/Sulbact S 4 F Susceptible <=8 , Intermediate >8 , Resistant >16 Piperacillin/Tazobac S <=4 F Susceptible <16 , Susceptible-Dose Dependent >=16 , Resistant >=32 Gentamicin S <=1 F Susceptible <=2 , Intermediate >2 , Resistant >=8 Tobramycin S <=1 F Susceptible <4 , Intermediate >=4 , Resistant >=8 Trimeth sulfameth S <=20 F Susceptible <=40 , Resistant >40 Ciprofloxacin R >=4 F Susceptible <0.5 , Intermediate >=.5 , Resistant >=1 Nitrofurantoin S <=16 F Susceptible <=32 , Intermediate >32 , Resistant >64 Abnormal [facility] Comment on above: Performed By: #### 3 024-7, 76497-2, 3016-3, 97048-0 #### [facility] CLIA [id number] [address] [place] [address] [place] CNOVon 12-03-2024 CNOV Office Visit (FAMPWS) TARIK BAKER ([id number]) 1945 F Date Time Provider Department 12/03/24 1:20 PM [facility] During your visit today, we recorded the following information about you: Temperature Pulse Blood pressure Weight 98.2 degrees 74/minute 134/76 91.2 kg Lindsay Wyatt APRN.REELING MACHINE OPERATOR 12/03/2024 2:01 PM Signed This is a 79 year old female who presents today with: Patient presents with: UTI: urinary frequency, dysuria, chills HISTORY OF PRESENT ILLNESS: Tarik Baker is a 79 year old female. Patient presents with: UTI: urinary frequency, dysuria, chills Alejandra Baker is a 79-year-old female with a history of recurrent UTIs, presenting with dysuria. Dysuria: - Intermittent dysuria x2 weeks. - Denies hematuria. - Reports occasional chills; denies fever. - Denies weakness, but reports feeling worn out. - History of recurrent UTIs, with episodes occurring annually. - Currently taking Azo and increasing water intake. PAST MEDICAL HISTORY: PAST MEDICAL HISTORY Diagnosis Date Diabetes (HCC) Essential hypertension History of cardiovascular stress test 12/2020 ef 60, no ischemia PAST SURGICAL HISTORY Procedure Laterality Date TUBAL LIGATION HX ALLERGIES Prednisone MEDICATIONS Current Outpatient Medications Medication Sig insulin NPH injection 25 units in the am and 25 units in the pm. potassium chloride ER (KLOR-CON) 20 mEq tablet Take 20 mEq by mouth once daily. Started by Cardio due to being on Lasix apixaban (ELIQUIS) 5 mg tab(s) Take 1 tablet by mouth two times a day. enalapril (VASOTEC) 20 mg tablet Take 1 tablet by mouth once daily. ergocalciferol 50,000 unit capsule (VITAMIN D2, DRISDOL) Take 1 capsule by mouth one time a week. Fenofibrate (LOFIBRA) 160 mg tablet Take 1 tablet by mouth once daily. furosemide (LASIX) 20 mg tablet Take 1 tablet by mouth once daily. levothyroxine (SYNTHROID) 175 mcg tablet Take 1 tablet by mouth once daily. Take on empty stomach. For Thyroid. metoprolol tartrate, short acting, (LOPRESSOR) 25 mg tablet Take 1 tablet by mouth two times a day. sertraline (ZOLOFT) 100 mg tablet Take 1 tablet by mouth once daily. red beet root-sour raines ext 250-0.5 mg chew Take 1 tablet by mouth once daily. vit A,C,L-Eqdv-Cwubos (PRESERVISION AREDS) 2,148 mcg-113 mg-45 mg-17.4mg tab Take 1 tablet by mouth daily with breakfast. multivitamin with minerals (MULTIPLE VITAMINS 55 PLUS ORAL) Take 1 capsule by mouth once daily. Ascorbic Acid (VITAMIN C) 100 mg tablet ZINC ORAL Take by mouth. apixaban (ELIQUIS) 5 mg tab(s) Take 1 tablet by mouth two times a day. No current facility-administere d medications for this visit. FAMILY HISTORY Problem Relation Age of Onset No Known Problems Mother No Known Problems Father No Known Problems Maternal Grandmother No Known Problems Maternal Grandfather No Known Problems Paternal Grandmother No Known Problems Paternal Grandfather Social History Tobacco Use Smoking status: Never Smokeless tobacco: Never Vaping Use Vaping status: Never Used Substance Use Topics Alcohol use: Never Drug use: Never REVIEW OF SYSTEMS Constitutional: (+) chills, (+) fatigue Genitourinary: (+) dysuria, (-) hematuria EXAM: BP 134/76 Pulse 74 Temp 36.8 ?C (98.2 ?F) Wt 91.2 kg (201 lb) SpO2 98% BMI 33.45 kg/m? PHYSICAL EXAM: GENERAL: NAD, alert and oriented NECK: Supple, no carotid bruits. LUNGS: Clear to auscultation bilaterally, no wheezes/rhonchi/rale s. HEART: Regular rate and rhythm, no murmurs. No ectopy. EXTREMITIES: Normal, No deformities, No skin discoloration, No edema. NEURO: Awake, alert and oriented x3, cranial nerves II-XII grossly intact, unsteady gait- uses walker, no involuntary motions LABS: urine DIP ASSESSMENT/PLAN: 1. Dysuria - ICD9: 788.1, ICD10: R30.0 acute - Patient education for prevention given - UA DIP, URINE (POC) - BACTERIAL CULTURE, URINE - Hx of e coli- amoxicillin every 8 hours for 10 days - Discussed pyridium but pt. Declined - Prescribed 1 tablet of fluconazole to take if needed for vaginal yeast infection - Amoxicillin 500 mg 3 x day for 10 days (based on last culture). Pt. Aware that antibiotic may have to be changed once the culture returns, Saturday. Discussed treatment plan and patient voices understanding. Patient's questions answered appropriately. Medications and potential side effects were discussed and patient voices understanding. Return to the office as scheduled or as needed for worsening/no improvement. Lindsay Wyatt APRN.Lindsay Molina APRN.CNP 12/03/2024 1:59 PM Signed - Amoxicillin 500 mg 3 times a day until prescription complete. - After your urine culture results return on Saturday, you may receive a call to adjust your antibiotic based on the bacteria identified. - F (more content not included)... 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 Pt reports urinary sx's that began about 2 weeks ago: -urinary frequency -burning with urination - 1 day of chills, nothing in last 24 hours -denies fever -does not see any visible blood in urine -no abd pain -no back/flank pain -no N/V -no severe weakness Pt reports she does get recurrent UTIs. Appt made with provider today for evaluation. Guillermina Ordonez RN Allergies As of Date: 12/03/2024 Noted Allergy Reaction PREDNISONE 09/06/2015 14 - Other: See Comments Comments: Sugar went over 900 Date Reviewed: 09/17/2024 Reviewed by: Cinthya Syed MA - Fully Assessed Reason for Visit: Patient Update [1234] Prescriptions as of 12/03/2024 - insulin NPH injection 25 units in the am and 25 units in the pm. - potassium chloride ER (KLOR-CON) 20 mEq tablet Take 20 mEq by mouth once daily. Started by Cardio due to being on Lasix - apixaban (ELIQUIS) 5 mg tab(s) Take 1 tablet by mouth two times a day. - apixaban (ELIQUIS) 5 mg tab(s) Take 1 tablet by mouth two times a day. - enalapril (VASOTEC) 20 mg tablet Take 1 tablet by mouth once daily. - ergocalciferol 50,000 unit capsule (VITAMIN D2, DRISDOL) Take 1 capsule by mouth one time a week. - Fenofibrate (LOFIBRA) 160 mg tablet Take 1 tablet by mouth once daily. - furosemide (LASIX) 20 mg tablet Take 1 tablet by mouth once daily. - levothyroxine (SYNTHROID) 175 mcg tablet Take 1 tablet by mouth once daily. Take on empty stomach. For Thyroid. - metoprolol tartrate, short acting, (LOPRESSOR) 25 mg tablet Take 1 tablet by mouth two times a day. - sertraline (ZOLOFT) 100 mg tablet Take 1 tablet by mouth once daily. - red beet root-sour raines ext 250-0.5 mg chew Take 1 tablet by mouth once daily. - vit A,C,S-Lgbv-Ejuhna (PRESERVISION AREDS) 2,148 mcg-113 mg-45 mg-17.4mg tab Take 1 tablet by mouth daily with breakfast. - multivitamin with minerals (MULTIPLE VITAMINS 55 PLUS ORAL) Take 1 capsule by mouth once daily. - Ascorbic Acid (VITAMIN C) 100 mg tablet - ZINC ORAL Take by mouth. Problem List As Of Date 12/03/2024 Noted Resolved History of temporal arteritis [Z87.39] 09/06/2015 Type 2 diabetes mellitus with hyperglycemia, wi*09/06/2015 Diabetes (HCC) [E11.9] Hypothyroidism, acquired [E03.9] 06/21/2020 Hypertriglyceridemia [E78.1] 06/21/2020 Obesity, Class I, BMI 30-34.9 [E66.811] 06/21/2020 Vitamin D deficiency [E55.9] 06/21/2020 Primary hypertension [I10] 12/12/2020 History of non-ST elevation myocardial infarcti*04/10/2022 Chronic kidney disease, stage 3a (HCC) [N18.31] 11/08/2022 06/12/2024 Bilateral pulmonary embolism (HCC) [I26.99] 06/12/2024 Encounter Status:Closed by GUILLERMINA ORDONEZ on 12/03/24 Normal [facility] UA DIP, URINE (POC)on 2024 BILIRUBIN UA (POCT) Negative Negative [facility] CLARITY UA (POCT) Clear [facility] COLOR UA (POCT) Yellow [facility] GLUCOSE UA (POCT) Negative Negative mg/dL [facility] Hemoglobin Ql (U) Trace-lysed Abnormal Negative [facility] Interpretation and review of laboratory results Abnormal [facility] KETONE UA (POCT) Negative Negative mg/dL [facility] LEUKOCYTES UA (POCT) Moderate Abnormal Negative [facility] NITRITE UA (POCT) Negative Negative [facility] PH UA (POCT) 5.5 4.5 - 8.0 [facility] Protein Ql (U) Negative Negative mg/dL [facility] SPECIFIC GRAVITY UA (POCT) 1.01 1.005 - 1.030 [facility] UROBILINOGEN UA (POCT) 0.2 Phuong l E.U./dL [facility] Location:[address], [place], [place], [id number] [place] [address] POINT OF CARE [facility] CNCOon 11-13-2024 CNCO Letter Text Normal [facility] Basic metabolic 2000 panelon 09-17-2024 Anion gap [Moles/Vol] 13 mmol/L Normal 8-15 [facility] Comment on above: Order Comment: Speci men Type: BLOOD SPECIMEN [facility] Facility[facility] Address: [address] [place] [address] Performed By: #### 3 024-7, 22717-7, 3016-3, 05589-8 #### [facility] CLIA [id number] [address] [place] [address] [place] Calcium [Mass/Vol] 9.5 mg/dL Normal 8.5-10.2 [facility] Comment on above: Order Comment: Speci men Type: BLOOD SPECIMEN [facility]ing Facility: [facility] Address: [address] [place] [address] Performed By: #### 3 024-7, 22656-0, 3016-3, 94997-9 #### [facility] CLIA [id number] [address] [place] [address] [place] Chloride [Moles/Vol] 104 mmol/L Normal 98-107 [facility] Comment on above: Order Comment: Speci men Type: BLOOD SPECIMEN [facility]ing Facility: [facility] Address: [address] [place] [address] Performed By: #### 3 024-7, 07888-3, 3016-3, 23076-4 #### [facility] CLIA [id number] [address] [place] [address] [place] CO2 [Moles/Vol] 21 mmol/L Low 22-30 [facility] Comment on above: Order Comment: Speci men Type: BLOOD SPECIMEN [facility] Facility: [facility] Address: [address] [place] [address] Performed By: #### 3 024-7, 91086-1, 3016-3, 85624-4 #### [facility] CLIA [id number] [address] [id number] [address] [place] Creatinine [Mass/Vol] 1.44 mg/dL High 0.58-0.96 [facility] Comment on above: Order Comment: Leodan clifton Type: BLOOD SPECIMEN [facility] Facility: [facility] Address: [address] [place] [address] Performed By: #### 3 024-7, 17074-8, 3016-3, 34258-6 #### [facility] CLIA [id number] [address] [place] [address] [place] Creatinine and Glomerular filtration rate.predicted panel (S/P/Bld) 37 mL/min/1.73m??? Low >=60 [facility] Comment on above: Order Comment: Leodan clifton Type: BLOOD SPECIMEN [facility] Facility: [facility] Address: [address] [place] [address] Result Comment: Elizabeth mated Glomerular Filtration Rate (eGFR) is calculated using the 2020 CKD-EPI creatinine equation. This equation utilizes serum creatinine, sex, and age as parameters. The creatinine assay has traceable calibration to isotope dilution-mass spectrometry. Refer to KDIGO guidelines for clinical interpretation. In patients with unstable renal function, e.g. those with acute kidney injury, the eGFR may not accurately reflect actual GFR. Performed By: #### 3 024-7, 94013-5, 3016-3, 77703-9 #### [facility] CLIA [id number] [address] [place] [address] [place] Glucose [Mass/Vol] 185 mg/dL High 74-99 [facility] Comment on above: Order Comment: Leodan clifton Type: BLOOD SPECIMEN [facility] Facility: [facility] Address: [address] [place] [address] Result Comment: The [place] Diabetes Association (ADA) provides guidance for cutoff values for fasting glucose and random glucose. The ADA defines fasting as no caloric intake for at least 8 hours. Fasting plasma glucose results between 100 to 125 mg/dL indicate increased risk for diabetes (prediabetes). Fasting plasma glucose results greater than or equal to 126 mg/dL meet the criteria for diagnosis of diabetes. In the absence of unequivocal hyperglycemia, results should be confirmed by repeat testing. In a patient with classic symptoms of hyperglycemia or hyperglycemic crisis, random plasma glucose results greater than or equal to 200 mg/dL meet the criteria for diagnosis of diabetes. Reference: Standards of Medical Care in Diabetes 2016, [place] Diabetes Association. Diabetes Care. 2016.39(Suppl 1). Performed By: #### 3 024-7, 29183-1, 3016-3, 13349-9 #### [facility] CLIA [id number] [address] [place] [address] [place] Potassium [Moles/Vol] 5.6 mmol/L High 3.7-5.1 [facility] Comment on above: Order Comment: Speci men Type: BLOOD SPECIMEN [facility] Facility[facility] Address: [address] [place] [address] Performed By: #### 3 024-7, 59491-3, 3016-3, 20946-9 #### [facility] CLIA [id number] [address] [place] [address] [place] Sodium [Moles/Vol] 138 mmol/L Normal 136-144 [facility] Comment on above: Order Comment: Armondi men Type: BLOOD SPECIMEN [facility] Facility: [facility] Address: [address] [place] [address] Performed By: #### 3 024-7, 47386-1, 3016-3, 05210-2 #### [facility] CLIA [id number] [address] [place] [address] [place] Urea nitrogen [Mass/Vol] 55 mg/dL High 7-21 [facility] Comment on above: Order Comment: Speci men Type: BLOOD SPECIMEN [facility] Facility: [facility] Address: [address] [place] [address] Performed By: #### 3 024-7, 16520-5, 3016-3, 38547-4 #### [facility] CLIA [id number] [address] [place] [address] [place] CNOVon 09-17-2024 CNOV Office Visit (FAMPWS) TARIK BAKER ([id number]) 1945 F [place] Date Time Provider Department 09/17/24 4:20 PM [facility] During your visit today, we recorded the following information about you: Pulse Respiration Blood pressure Weight 74/minute 16/minute 120/70 91.9 kg Zac Linton MD 09/17/2024 5:41 PM Signed Chief Complaint Patient presents with: F/U 3 Month HPI Tarik Baker is a 78 year old female who presents here today for 3 month follow up. Here with . No bowel or GI issues. Chronic issues with UTIs. Has OAB. Lipids: Taking Fenofibrate 160 mg daily. DM: Checking BS at home with readings around 102. Has mild neuropathy in feet. Denies any hypoglycemic episodes. Taking Humulin/Novolin 25 units AM and 25 units PM which was changed last visit. Does not following with an eye doctor for a long time. Palpitations: stable on Vasotec 20 mg daily, Metoprolol 25 mg BID and ASA 325 mg daily. Follows with Dr. Hinton at [facility]. Does check BP occ with readings WNL. Edema: Oscar legs, stable with Lasix 20 mg daily. PE: Taking Eliquis 5 mg BID. Thyroid: Taking Synthroid 175 mcg daily. Moods: Stable with zoloft 100 mg daily. Taking Vitamin D3 50,000 international unit(s) weekly. Past medical history, appointments, medications, allergies reviewed. Previous Medical History PAST MEDICAL HISTORY Diagnosis Date Diabetes (HCC) Essential hypertension History of cardiovascular stress test 12/2020 ef 60, no ischemia Previous Surgical History PAST SURGICAL HISTORY Procedure Laterality Date TUBAL LIGATION HX Family History FAMILY HISTORY Problem Relation Age of Onset No Known Problems Mother No Known Problems Father No Known Problems Maternal Grandmother No Known Problems Maternal Grandfather No Known Problems Paternal Grandmother No Known Problems Paternal Grandfather Patient Allergies ALLERGIES Allergen Reactions Prednisone Other: See Comments Sugar went over 900 Current Medications Current Outpatient Medications on File Prior to Visit Medication Sig potassium chloride ER (KLOR-CON) 20 mEq tablet Take 20 mEq by mouth once daily. Started by Cardio due to being on Lasix insulin NPH injection 22 units in the am and 26 units in the pm. apixaban (ELIQUIS) 5 mg tab(s) Take 1 tablet by mouth two times a day. apixaban (ELIQUIS) 5 mg tab(s) Take 1 tablet by mouth two times a day. enalapril (VASOTEC) 20 mg tablet Take 1 tablet by mouth once daily. ergocalciferol 50,000 unit capsule (VITAMIN D2, DRISDOL) Take 1 capsule by mouth one time a week. Fenofibrate (LOFIBRA) 160 mg tablet Take 1 tablet by mouth once daily. furosemide (LASIX) 20 mg tablet Take 1 tablet by mouth once daily. levothyroxine (SYNTHROID) 175 mcg tablet Take 1 tablet by mouth once daily. Take on empty stomach. For Thyroid. metoprolol tartrate, short acting, (LOPRESSOR) 25 mg tablet Take 1 tablet by mouth two times a day. sertraline (ZOLOFT) 100 mg tablet Take 1 tablet by mouth once daily. red beet root-sour raines ext 250-0.5 mg chew Take 1 tablet by mouth once daily. vit A,C,I-Tdqe-Obgirl (PRESERVISION AREDS) 2,148 mcg-113 mg-45 mg-17.4mg tab Take 1 tablet by mouth daily with breakfast. multivitamin with minerals (MULTIPLE VITAMINS 55 PLUS ORAL) Take 1 capsule by mouth once daily. Ascorbic Acid (VITAMIN C) 100 mg tablet ZINC ORAL Take by mouth. No current facility-administere d medications on file prior to visit. Social History Social History Tobacco Use Smoking status: Never Smokeless tobacco: Never Vaping Use Vaping status: Never Used Substance Use Topics Alcohol use: Never Drug use: Never EXAM: BP 120/70 Pulse 74 Resp 16 Wt 91.9 kg (202 lb 9.6 oz) SpO2 98% BMI 33.71 kg/m? General Appearance: Well appearing, alert, in no acute distress, well-hydrated, well nourished. and Walker. Lungs: Lungs clear to auscultation. No wheezing, rhonchi, rales.. Heart: RRR without murmur, gallop, or rubs. No ectopy. Health Maintenance List Bone Density Screening Never done Hemoglobin/Hematocri t due on 12/06/2021 Dilated Retinal Exam due on 04/10/2023 Urine Albumin:Creatinine Ratio due on 04/18/2023 Advance Directive Discussion due on 05/06/2024 HbA1C due on 09/13/2024 DTaP,Tdap,Td Vaccine(2 - Td or Tdap) due on 10/14/2024 RSV Vaccine(1 - 1-dose 75+ series) due on 12/01/2024 Shingrix Vaccine(1 of 2) due on 12/01/2024 Pneumococcal Vaccine: 50+(2 of 2 - PCV) due on 12/01/2024 Covid-19 Vaccine( - season) due on 06/12/2025 Diabetic Foot Exam due on 12/01/2024 Depression Screening due on 12/01/2024 Anxiety Screening due on 12/01/2024 Influenza Vaccine(Season Ended) due on 01/04/2025 Annual PCP Team Chronic Disease Visit due on 06/12/2025 BP Controlled (<130/80) due on 06/12/2025 LDL Cholesterol due on 06/16/2025 Ser (more content not included)... Normal [facility] HbA1c (Bld)on 09-17-2024 Average glucose Estimated from glycated hemoglobin (Bld) [Mass/Vol] 177 mg/dL Normal [facility] Comment on above: Order Comment: Speci etienne Type: BLOOD SPECIMEN Ordering Facility: [facility] Address: [address] [place] [address] Result Comment: eAG: (Estimated average glucose) is a calculated value from HgbA1c and is solar sales representative and assessor of the average blood glucose level in the last 2-3 month period. Performed By: #### 3 024-7, 17746-7, 3016-3, 04101-3 #### [facility] CLIA [id number] [address] [place] [address] [place] [address] [place] HbA1c (Bld) [Mass fraction] 7.8 % High 4.3-5.6 [facility] Comment on above: Order Comment: Speci men Type: BLOOD SPECIMEN Ordering Facility: [facility] Address: [address] [id number] Result Comment: [place] Diabetes Association guidelines indicate that patients with HgbA1c in the range 5.7-6.4% are at increased risk for development of diabetes, and intervention by lifestyle modification may be beneficial. HgbA1c greater or equal to 6.5% is considered diagnostic of diabetes. Performed By: #### 3 024-7, 02276-0, 3016-3, 67393-2 #### [facility] CLIA [id number] [address] [place] [address] [place] [place] [id number] [place] [facility] Cardiology Visit Reporton Cardiology Visit Report [facility] [address] [place], [place] [address] OFFICE VISIT Date of Service: 09/15/24 MR#: [id number] Acct: [id number] Name: TARIK BAKER Rep #: [id number] : 1945 Provider: Dr. Josue Hsu MD Age/Sex: 78/F Location: [facility] Status: Signed HPI HPI History of Present Illness Details: This lady with history of paroxysmal atrial fibrillation, unprovoked DVT and pulmonary embolism, hypertension and diabetes mellitus is here for follow-up visit. Denies any complaints today. No chest pains. No shortness of breath. Since increasing her furosemide to 40 mg daily, her ankle edema has resolved. 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 Instructions: Hold it while patient is on Eliquis ergocalciferol (vitamin D2) 1,250 1,250 mcg PO MO 01/24/24 09/15/24 History mcg (50,000 unit) capsule levothyroxine 175 mcg tablet 175 mcg PO QDAY 01/24/24 09/15/24 History (Synthroid) multivitamin 1 tab PO QAM 01/24/24 09/15/24 His tory sertraline 100 mg tablet 100 mg PO QDAY 01/24/24 09/15/24 H istory metoprolol tartrate 25 mg tablet 25 mg PO BID 02/04/24 09/15/24 His tory zinc gluconate 100 mg tablet 100 mg PO DAILY 02/04/24 09/15/24 History enalapril maleate 20 mg tablet 40 mg PO QDAY 03/23/24 09/15/24 Hi story furosemide 40 mg tablet (Lasix) 40 mg PO QAM #90 tabs 03/23/24 Rx potassium chloride 20 mEq 20 meq PO QDAY #90 tabs 03/23/24 0 09/15/24 Rx tablet,extended release apixaban 5 mg tablet (Eliquis) 5 mg PO BID #60 tabs 04/20/2409/03 Rx insulin NPH isoph U-100 human 100 25 unit subcut BID 09/15/2409/15 History unit/mL subcutaneous suspension (Novolin N NPH U-100 Insulin isophane) Ejection fraction %: 60 Have you fallen in the past year?: No [facility] Atrial fibrillation Bilateral pulmonary embolism Depression Diabetes Hypercholesteremia Hypothyroid Hypoxemia Myocardial infarct Non-smoker Pulmonary embolism TIA (transient ischemic attack) Surgical History H/O tubal ligation Social History Smoking Status: Never smoker Electronic Cigarette Use: not used alcohol intake: never substance use type: does not use ROS Const Const: Negative for fatigue, weakness, headache(s) or weight gain ENT ENT: Negative for headache(s), dizziness, Nosebleed/epistaxis or balance problems Cardio Chest Pain: No Palpitations: No Edema: None Muscle aches with walking: None Resp Respiratory: Negative for SOB with activity, SOB at rest or SOB orthopnea SOB lying down GI GI: Negative nausea, vomiting or heartburn Musc Musc: Negative for muscle aches/ myalgia, muscle weakness, joint pain or balance problems Neuro Neuro: Negative for dizziness, lightheadedness, near syncope, syncope, headache(s) or weakness Endo Endo: Negative for fatigue Cardiology Exam Const Appearance: comfortable and no acute distress Nutritional Appearance: well nourished Neck Neck: no JVD Carotids: Negative bruit Chest Auscultation: Bilateral: Clear to Auscultation Cardio Rate: regular rate Rhythm: regular rhythm Heart sounds: S1 normal and S2 normal Neuro General: patient alert, patient awake and patient oriented x3 Extremities Lower Extremity Edema: None: Bilateral Supplemental Info Supplemental Information Echocardiogram 02/05/2024: Interpretation Summary: The estimated ejection fraction is 60 %. Diastolic function is indeterminate. Pulmonary artery systolic pressure is 70 mmHg. Echocardiogram 01/17/2024: Impression: -Technically difficult exam due to suboptimal positioning and body habitus. -Exam indication: Frequent PVCs -The left ventricle is normal in size. Left ventricular systolic function is normal. EF=58 +/- 5% (2D 4-ch). Normal left ventricular diastolic function. -The right ventricle is normal (more content not included)... [facility] ([id number]) 1945 F LV Date Time Provider Department 07/16/24 ZAC LINTON During your visit today, we recorded the following information about you: Nicki Wheeler RN 07/16/2024 10:30 AM Signed Spouse (Sin) calls to report that he is scheduled for a consultation appointment on Saturday to have heart valve replacement. Sin requesting orders for [facility] and a letter for insurance justifying the care that is needed for patient in absence. Sin reports that patient needs medication management and someone to stay with her at all times. Explained that [facility] didn't generally offer 24 hour care and he reports that is why he needs the letter. Recommended contacting insurance to see what services were offered but didn't appear that Sin was going to do that. BRITTON Aranda Mark D, MD 07/16/2024 11:19 AM Signed Since she requires 24 hour care she would be best served by a short term stay in nursing facility. A letter from k[place] cannot make [facility] provide 24 hour care if they do not provide that service. MD Kunal Sykes Kathryn, MA 07/16/2024 11:59 AM Signed Pt notified. He stated he was under the impression that [facility] could provide 24 hour care done in shifts by nurses. I advised pt that he would have to check with [facility] to see if that is something offered and to have them contact the office if an order is needed for 24 hour HH care from [facility]. Pt voiced understanding. Cinthya Syed MA Allergies As of Date: 07/16/2024 Noted Allergy Reaction PREDNISONE 09/06/2015 14 - Other: See Comments Comments: Sugar went over 900 Date Reviewed: 06/12/2024 Reviewed by: Cinthya Syed MA - Fully Assessed Reason for Visit: Orders [681] Prescriptions as of 07/16/2024 - nitrofurantoin monohydrate and macrocrystal (MACROBID) 100 mg capsule Take 1 capsule by mouth two times a day with meals for 7 days. - potassium chloride ER (KLOR-CON) 20 mEq tablet Take 20 mEq by mouth once daily. Started by Cardio due to being on Lasix - insulin NPH injection 22 units in the am and 26 units in the pm. - apixaban (ELIQUIS) 5 mg tab(s) Take 1 tablet by mouth two times a day. - apixaban (ELIQUIS) 5 mg tab(s) Take 1 tablet by mouth two times a day. - enalapril (VASOTEC) 20 mg tablet Take 1 tablet by mouth once daily. - ergocalciferol 50,000 unit capsule (VITAMIN D2, DRISDOL) Take 1 capsule by mouth one time a week. - Fenofibrate (LOFIBRA) 160 mg tablet Take 1 tablet by mouth once daily. - furosemide (LASIX) 20 mg tablet Take 1 tablet by mouth once daily. - levothyroxine (SYNTHROID) 175 mcg tablet Take 1 tablet by mouth once daily. Take on empty stomach. For Thyroid. - metoprolol tartrate, short acting, (LOPRESSOR) 25 mg tablet Take 1 tablet by mouth two times a day. - sertraline (ZOLOFT) 100 mg tablet Take 1 tablet by mouth once daily. - red beet root-sour raines ext 250-0.5 mg chew Take 1 tablet by mouth once daily. - vit A,C,J-Utwt-Zxoeex (PRESERVISION AREDS) 2,148 mcg-113 mg-45 mg-17.4mg tab Take 1 tablet by mouth daily with breakfast. - multivitamin with minerals (MULTIPLE VITAMINS 55 PLUS ORAL) Take 1 capsule by mouth once daily. - Ascorbic Acid (VITAMIN C) 100 mg tablet - ZINC ORAL Take by mouth. Problem List As Of Date 07/16/2024 Noted Resolved History of temporal arteritis [Z87.39] 09/06/2015 Type 2 diabetes mellitus with hyperglycemia, wi*09/06/2015 Diabetes (HCC) [E11.9] Hypothyroidism, acquired [E03.9] 06/21/2020 Hypertriglyceridemia [E78.1] 06/21/2020 Obesity, Class I, BMI 30-34.9 [E66.811] 06/21/2020 Vitamin D deficiency [E55.9] 06/21/2020 Primary hypertension [I10] 12/12/2020 History of non-ST elevation myocardial infarcti*04/10/2022 Chronic kidney disease, stage 3a (HCC) [N18.31] 11/08/2022 06/12/2024 Bilateral pulmonary embolism (HCC) [I26.99] 06/12/2024 Encounter Status:Closed by CINTHYA SYED on 07/16/24 [facility]AR[facility]AK[facility] ([id number]) 1945 F LV Date Time Provider Department 07/14/24 [facility] During your visit today, we recorded the following information about you: Angie Martínez LPN 07/14/2024 1:27 PM Signed Pt's calls to report that pt is having urinary frequency and dysuria x 1 week. Pt was on macrobid 100 mg bid x 7 days on 06/18/24 for uti. reports pt is having the same sx and needs another round of atb. denies fever, blood in urine, abdominal/flank pain. Please review and advise. ISIDORO Reyes Mark D, MD 07/14/2024 1:32 PM Signed OK for Macrobid as ordered MD Rober Sykes Rilee, MA 07/14/2024 1:47 PM Signed Call to pt's spouse, Sin and notified him that PCP has sent in Abx to pharmacy for pt. Pt spouse understood. Jayla Jaeger MA Allergies As of Date: 07/14/2024 Noted Allergy Reaction PREDNISONE 09/06/2015 14 - Other: See Comments Comments: Sugar went over 900 Date Reviewed: 06/12/2024 Reviewed by: Cinthya Syed MA - Fully Assessed Reason for Visit: Urinary Problem [252] Visit Diagnosis:Acute cystitis with hematuria [N30.01] Order(s):nitrofurant oin monohydrate and macrocrystal (MACROBID) 100 mg capsuleTake 1 capsule by mouth two times a day with meals for 7 days.Disp: 14 capsuleRfl: 0 Prescriptions as of 07/14/2024 - nitrofurantoin monohydrate and macrocrystal (MACROBID) 100 mg capsule Take 1 capsule by mouth two times a day with meals for 7 days. - potassium chloride ER (KLOR-CON) 20 mEq tablet Take 20 mEq by mouth once daily. Started by Cardio due to being on Lasix - insulin NPH injection 22 units in the am and 26 units in the pm. - apixaban (ELIQUIS) 5 mg tab(s) Take 1 tablet by mouth two times a day. - apixaban (ELIQUIS) 5 mg tab(s) Take 1 tablet by mouth two times a day. - enalapril (VASOTEC) 20 mg tablet Take 1 tablet by mouth once daily. - ergocalciferol 50,000 unit capsule (VITAMIN D2, DRISDOL) Take 1 capsule by mouth one time a week. - Fenofibrate (LOFIBRA) 160 mg tablet Take 1 tablet by mouth once daily. - furosemide (LASIX) 20 mg tablet Take 1 tablet by mouth once daily. - levothyroxine (SYNTHROID) 175 mcg tablet Take 1 tablet by mouth once daily. Take on empty stomach. For Thyroid. - metoprolol tartrate, short acting, (LOPRESSOR) 25 mg tablet Take 1 tablet by mouth two times a day. - sertraline (ZOLOFT) 100 mg tablet Take 1 tablet by mouth once daily. - red beet root-sour raines ext 250-0.5 mg chew Take 1 tablet by mouth once daily. - vit A,C,X-Mfef-Datjgs (PRESERVISION AREDS) 2,148 mcg-113 mg-45 mg-17.4mg tab Take 1 tablet by mouth daily with breakfast. - multivitamin with minerals (MULTIPLE VITAMINS 55 PLUS ORAL) Take 1 capsule by mouth once daily. - Ascorbic Acid (VITAMIN C) 100 mg tablet - ZINC ORAL Take by mouth. Problem List As Of Date 07/14/2024 Noted Resolved History of temporal arteritis [Z87.39] 09/06/2015 Type 2 diabetes mellitus with hyperglycemia, wi*09/06/2015 Diabetes (HCC) [E11.9] Hypothyroidism, acquired [E03.9] 06/21/2020 Hypertriglyceridemia [E78.1] 06/21/2020 Obesity, Class I, BMI 30-34.9 [E66.811] 06/21/2020 Vitamin D deficiency [E55.9] 06/21/2020 Primary hypertension [I10] 12/12/2020 History of non-ST elevation myocardial infarcti*04/10/2022 Chronic kidney disease, stage 3a (HCC) [N18.31] 11/08/2022 06/12/2024 Bilateral pulmonary embolism (HCC) [I26.99] 06/12/2024 Prescriptions ordered this encounter Disp Refills Start End NITROFURANTOIN MONOHYDRATE AND MACROCR* 14 c* 0 07/14/2024 07/21/2024 Route: ORAL Sig: Take 1 capsule by mouth two times a day with meals for 7 days. Medications Discontinued During This Encounter Prescriptions - nitrofurantoin monohydrate and macrocrystal (MACROBID) 100 mg capsule (Discontinued) Take 1 capsule by mouth two times a day with meals for 7 days. Encounter Status:Closed by JAYLA JAEGER on 07/14/24 [facility] 06-23-2024 [facility] TAR[facility]AK[facility] ([id number]) 1945 F Date Time Provider Department 06/23/24 ZAC LINTON [facility] During your visit today, we recorded the following information about you: Ivonne Dolan, RN 06/23/2024 4:50 PM Signed Daughter, Breanna, reports her step-father, patient's , went to ER last night because he doesn't know who he is, and he is still there. Nurses tell her he may not go home, may go to Rehab. Daughter is concerned about her mother, who is blind, has heart problems, and blood clots in her lungs and taking eliquis, and not able to care for herself. Reports her step dad took care of her. Daughter is unable to stay with mother, because daughter works. She can check in on her but she cannot stay with her. Reports the neighbor is staying with her mother right now. Daughter has tried to call her siblings for help but they will not answer. Daughter looking for help and doesn't know where to begin. Asking if pcp and SW can help her figure this out. Please phone Breanna at [phone] Lee Syed WAGE AND SALARY SPECIALIST 06/24/2024 9:17 AM Signed Amber spoke with daughter Breanna and provided her with [facility] to check in to respite care type ideas or options. Breanna notes that patient spouse is in the hospital. Typically patient home care provider. Spouse may need to go to rehab, not sure about this option yet. Breanna notes that she is waiting to see what the hospital has to say in regards to spouse. Breanna asked about patient going to rehab with spouse if Dr. Linton would write for this. Amber noted rehab is typically done after hospital stay for Medicare 3 inpatient night stay to then transition to rehab. Patient is at home at this time. Amber encouraged daughter to call [facility] for respite type option ideas for patient. Amber will also forward note to Dr. Linton office for his input. Jayla Jaeger MA 06/25/2024 1:03 PM Signed Pt's spouse was d/c home from hospital. VIN Perrin Mark D, MD 06/25/2024 4:47 PM Signed Noted; since is home they can let us know if any other care is needed Zac Linton MD Allergies As of Date: 06/23/2024 Noted Allergy Reaction PREDNISONE 09/06/2015 14 - Other: See Comments Comments: Sugar went over 900 Date Reviewed: 06/12/2024 Reviewed by: Cinthya Syed MA - Fully Assessed Reason for Visit: Patient concern [Other] Prescriptions as of 06/25/2024 - nitrofurantoin monohydrate and macrocrystal (MACROBID) 100 mg capsule Take 1 capsule by mouth two times a day with meals for 7 days. - potassium chloride ER (KLOR-CON) 20 mEq tablet Take 20 mEq by mouth once daily. Started by Cardio due to being on Lasix - insulin NPH injection 22 units in the am and 26 units in the pm. - apixaban (ELIQUIS) 5 mg tab(s) Take 1 tablet by mouth two times a day. - apixaban (ELIQUIS) 5 mg tab(s) Take 1 tablet by mouth two times a day. - enalapril (VASOTEC) 20 mg tablet Take 1 tablet by mouth once daily. - ergocalciferol 50,000 unit capsule (VITAMIN D2, DRISDOL) Take 1 capsule by mouth one time a week. - Fenofibrate (LOFIBRA) 160 mg tablet Take 1 tablet by mouth once daily. - furosemide (LASIX) 20 mg tablet Take 1 tablet by mouth once daily. - levothyroxine (SYNTHROID) 175 mcg tablet Take 1 tablet by mouth once daily. Take on empty stomach. For Thyroid. - metoprolol tartrate, short acting, (LOPRESSOR) 25 mg tablet Take 1 tablet by mouth two times a day. - sertraline (ZOLOFT) 100 mg tablet Take 1 tablet by mouth once daily. - red beet root-sour raines ext 250-0.5 mg chew Take 1 tablet by mouth once daily. - vit A,C,U-Xnni-Uxnwog (PRESERVISION AREDS) 2,148 mcg-113 mg-45 mg-17.4mg tab Take 1 tablet by mouth daily with breakfast. - multivitamin with minerals (MULTIPLE VITAMINS 55 PLUS ORAL) Take 1 capsule by mouth once daily. - Ascorbic Acid (VITAMIN C) 100 mg tablet - ZINC ORAL Take by mouth. Problem List As Of Date 06/23/2024 Noted Resolved History of temporal arteritis [Z87.39] 09/06/2015 Type 2 diabetes mellitus with hyperglycemia, wi*09/06/2015 Diabetes (HCC) [E11.9] Hypothyroidism, acquired [E03.9] 06/21/2020 Hypertriglyceridemia [E78.1] 06/21/2020 Obesity, Class I, BMI 30-34.9 [E66.811] 06/21/2020 Vitamin D deficiency [E55.9] 06/21/2020 Primary hypertension [I10] 12/12/2020 History of non-ST elevation myocardial infarcti*04/10/2022 Chronic kidney disease, stage 3a (HCC) [N18.31] 11/08/2022 06/12/2024 Bilateral pulmonary embolism (HCC) [I26.99] 06/12/2024 Encounter Status:Closed by ZAC LINTON on 06/25/24 [facility] Bacteria Ur Culton Bacteria identified Cx Nom (U) ORGANISM ID: 1 >=100,000 CFU/ml Escherichia coli ORGANISM ID: 1 (ESCHERICHIA COLI) ANTIBIOTIC INTERPRETATION PATITO STATUS REFERENCE RANGE Ampicillin I 16 F Susceptible <=8 , Intermediate >8 , Resistant >16 Cefazolin S <=4 F Susceptible 0-16 , Intermediate <0 or >16 , Resistant >16 For uncomplicated urinary tract infections, cefazolin results can be used to predict susceptibility or resistance to cephalexin. Ceftriaxone S <=1 F Susceptible <=1 , Intermediate >1 , Resistant >=4 Cefepime S <=1 F Susceptible <=2 , Susceptible-Dose Dependent >2 , Resistant >=16 Ertapenem S <=0.5 F Susceptible <=0.5 , Intermediate >.5 , Resistant >1 Meropenem S <=0.25 F Susceptible <=1 , Intermediate >1 , Resistant >2 Ampicillin/Sulbact S 4 F Susceptible <=8 , Intermediate >8 , Resistant >16 Piperacillin/Tazobac S <=4 F Susceptible <16 , Susceptible-Dose Dependent >=16 , Resistant >=32 Gentamicin S <=1 F Susceptible <=2 , Intermediate >2 , Resistant >=8 Tobramycin S <=1 F Susceptible <4 , Intermediate >=4 , Resistant >=8 Trimeth sulfameth S <=20 F Susceptible <=40 , Resistant >40 Ciprofloxacin R >=4 F Susceptible <0.5 , Intermediate >=.5 , Resistant >=1 Nitrofurantoin S <=16 F Susceptible <=32 , Intermediate >32 , Resistant >64 Abnormal [facility] Comment on above: Performed By: #### 3 024-7, 10250-9, 3016-3, 85689-9 #### [facility] CLIA [id number] [address] [place] [address] OF [facility] TARIK BAKER ([id number]) 1945 F LV Date Time Provider Department 06/16/24 [facility] During your visit today, we recorded the following information about you: Cinthya Syed MA 06/16/2024 9:09 AM Signed Pt at lab to do blood work, thinks she has a UTI wants to add urine test. Please place UA with Micro and Urine Culture. VIN Del Real Jesse, APRN.REELING MACHINE OPERATOR 06/16/2024 11:17 AM Signed Order placed. Not sure if patient is still in the building. Shankar Palacio APRN.Lindsay Saldivar LPN 06/16/2024 11:32 AM Signed Patient states she gave urine while here, lab notified orders in. Allergies As of Date: 06/16/2024 Noted Allergy Reaction PREDNISONE 09/06/2015 14 - Other: See Comments Comments: Sugar went over 900 Date Reviewed: 06/12/2024 Reviewed by: Cinthya Syed MA - Fully Assessed Reason for Visit: Lab Orders [1688] Cmt: Primary Visit Diagnosis:UTI symptoms [R39.9] Order(s):URINALYSIS, WITH MICROSCOPIC [SQUAWMIC] Order #: [id number] FUTURE BACTERIAL CULTURE, URINE [SQURCUL] Order #: [id number] FUTURE Prescriptions as of 06/16/2024 - potassium chloride ER (KLOR-CON) 20 mEq tablet Take 20 mEq by mouth once daily. Started by Cardio due to being on Lasix - insulin NPH injection 22 units in the am and 26 units in the pm. - apixaban (ELIQUIS) 5 mg tab(s) Take 1 tablet by mouth two times a day. - apixaban (ELIQUIS) 5 mg tab(s) Take 1 tablet by mouth two times a day. - enalapril (VASOTEC) 20 mg tablet Take 1 tablet by mouth once daily. - ergocalciferol 50,000 unit capsule (VITAMIN D2, DRISDOL) Take 1 capsule by mouth one time a week. - Fenofibrate (LOFIBRA) 160 mg tablet Take 1 tablet by mouth once daily. - furosemide (LASIX) 20 mg tablet Take 1 tablet by mouth once daily. - levothyroxine (SYNTHROID) 175 mcg tablet Take 1 tablet by mouth once daily. Take on empty stomach. For Thyroid. - metoprolol tartrate, short acting, (LOPRESSOR) 25 mg tablet Take 1 tablet by mouth two times a day. - sertraline (ZOLOFT) 100 mg tablet Take 1 tablet by mouth once daily. - red beet root-sour raines ext 250-0.5 mg chew Take 1 tablet by mouth once daily. - vit A,C,T-Lbua-Ghmxew (PRESERVISION AREDS) 2,148 mcg-113 mg-45 mg-17.4mg tab Take 1 tablet by mouth daily with breakfast. - multivitamin with minerals (MULTIPLE VITAMINS 55 PLUS ORAL) Take 1 capsule by mouth once daily. - Ascorbic Acid (VITAMIN C) 100 mg tablet - ZINC ORAL Take by mouth. Problem List As Of Date 06/16/2024 Noted Resolved History of temporal arteritis [Z87.39] 09/06/2015 Type 2 diabetes mellitus with hyperglycemia, wi*09/06/2015 Diabetes (HCC) [E11.9] Hypothyroidism, acquired [E03.9] 06/21/2020 Hypertriglyceridemia [E78.1] 06/21/2020 Obesity, Class I, BMI 30-34.9 [E66.811] 06/21/2020 Vitamin D deficiency [E55.9] 06/21/2020 Primary hypertension [I10] 12/12/2020 History of non-ST elevation myocardial infarcti*04/10/2022 Chronic kidney disease, stage 3a (HCC) [N18.31] 11/08/2022 06/12/2024 Bilateral pulmonary embolism (HCC) [I26.99] 06/12/2024 Encounter Status:Closed by LINDSAY TENA on 06/16/24 Normal [facility] Comprehensive metabolic 2000 panelon 06-16-2024 Albumin [Mass/Vol] 4.0 g/dL Normal 3.9-4.9 [facility] Comment on above: Order Comment: Speci men Type: BLOOD SPECIMEN Ordering Facility: [facility] Address: [address] [place] [address] Performed By: #### 3 024-7, 83817-6, 3016-3, 45848-2 #### [facility] CLIA [id number] [address] [place] [address] [place] ALP [Catalytic activity/Vol] 41 U/L Normal 34-123 [facility] Comment on above: Order Comment: Speci men Type: BLOOD SPECIMEN Ordering Facility: [facility] Address: [address] [place] [address] Performed By: #### 3 024-7, 84907-6, 3016-3, 76839-6 #### [facility] CLIA [id number] [address] [place] [address] [place] ALT [Catalytic activity/Vol] 17 U/L Normal 7-38 [facility] Comment on above: Order Comment: Speci men Type: BLOOD SPECIMEN Ordering Facility: [facility] Address: [address] [place] [address] Performed By: #### 3 024-7, 30572-1, 3016-3, 78600-5 #### [facility] CLIA [id number] [address] [place] [address] [place] Anion gap [Moles/Vol] 10 mmol/L Normal 8-15 [facility] Comment on above: Order Comment: Speci men Type: BLOOD SPECIMEN Ordering Facility: [facility] Address: [address] [place] [address] Performed By: #### 3 024-7, 44604-1, 3016-3, 08829-6 #### [facility] CLIA [id number] [address] [place] [address] [place] AST [Catalytic activity/Vol] 21 U/L Normal 13-35 [facility] Comment on above: Order Comment: Speci men Type: BLOOD SPECIMEN Ordering Facility: [facility] Address: [address] [place] [address] Performed By: #### 3 024-7, 84104-7, 3016-3, 71528-8 #### [facility] CLIA [id number] [address] [place] [address] [place] Bilirubin [Mass/Vol] 0.3 mg/dL Normal 0.2-1.3 [facility] Comment on above: Order Comment: Speci men Type: BLOOD SPECIMEN Ordering Facility: [facility] Address: [address] [place] [address] Performed By: #### 3 024-7, 25720-3, 3016-3, 08257-3 #### [facility] CLIA [id number] [address] [place] [address] [place] Calcium [Mass/Vol] 9.9 mg/dL Normal 8.5-10.2 [facility] Comment on above: Order Comment: Speci men Type: BLOOD SPECIMEN Ordering Facility: [facility] Address: [address] [place] [address] Performed By: #### 3 024-7, 10723-0, 3016-3, 31350-4 #### [facility] CLIA [id number] [address] [place] [address] [place] Chloride [Moles/Vol] 107 mmol/L Normal 98-107 [facility] Comment on above: Order Comment: Speci men Type: BLOOD SPECIMEN Ordering Facility: [facility] Address: [address] [place] [address] Performed By: #### 3 024-7, 87680-9, 3016-3, 85910-6 #### [facility] CLIA [id number] [address] [place] [address] [place] CO2 [Moles/Vol] 22 mmol/L Normal 22-30 [facility] Comment on above: Order Comment: Speci men Type: BLOOD SPECIMEN Ordering Facility: [facility] Address: [address] [place] [address] Performed By: #### 3 024-7, 86774-0, 3016-3, 68980-9 #### [facility] CLIA [id number] [address] [place] [address] [place] Creatinine [Mass/Vol] 1.07 mg/dL High 0.58-0.96 [facility] Comment on above: Order Comment: Speci men Type: BLOOD SPECIMEN Ordering Facility: [facility] Address: [address] [place] [address] Performed By: #### 3 024-7, 51774-7, 3016-3, 62990-9 #### [facility] CLIA [id number] [address] [place] [address] [place] Creatinine and Glomerular filtration rate.predicted panel (S/P/Bld) 53 mL/min/1.73m??? Low >=60 [facility] Comment on above: Order Comment: Speci men Type: BLOOD SPECIMEN Ordering Facility: [facility] Address: [address] [place] [address] Result Comment: Elizabeth mated Glomerular Filtration Rate (eGFR) is calculated using the 2020 CKD-EPI creatinine equation. This equation utilizes serum creatinine, sex, and age as parameters. The creatinine assay has traceable calibration to isotope dilution-mass spectrometry. Refer to KDIGO guidelines for clinical interpretation. In patients with unstable renal function, e.g. those with acute kidney injury, the eGFR may not accurately reflect actual GFR. Performed By: #### 3 024-7, 94742-2, 6-3, 97186-1 #### [facility] CLIA [id number] [address] [place] [address] [place] Glucose [Mass/Vol] 136 mg/dL High 74-99 [facility] Comment on above: Order Comment: Leodan clifton Type: BLOOD SPECIMEN Ordering Facility: [facility] Address: [address] [place] [address] Result Comment: The [place] Diabetes Association (ADA) provides guidance for cutoff values for fasting glucose and random glucose. The ADA defines fasting as no caloric intake for at least 8 hours. Fasting plasma glucose results between 100 to 125 mg/dL indicate increased risk for diabetes (prediabetes). Fasting plasma glucose results greater than or equal to 126 mg/dL meet the criteria for diagnosis of diabetes. In the absence of unequivocal hyperglycemia, results should be confirmed by repeat testing. In a patient with classic symptoms of hyperglycemia or hyperglycemic crisis, random plasma glucose results greater than or equal to 200 mg/dL meet the criteria for diagnosis of diabetes. Reference: Standards of Medical Care in Diabetes 2016, [place] Diabetes Association. Diabetes Care. 2016.39(Suppl 1). Performed By: #### 3 024-7, 94254-1, 3015-3, 30363-4 #### [facility] CLIA [id number] [address] [place] [address] [place] Potassium [Moles/Vol] 5.2 mmol/L High 3.7-5.1 [facility] Comment on above: Order Comment: Leodan clifton Type: BLOOD SPECIMEN Ordering Facility: [facility] Address: [address] [place] [address] Performed By: #### 3 024-7, 26035-4, 6-3, 64088-1 #### [facility] CLIA [id number] [address] [place] [address] [place] Protein [Mass/Vol] 7.8 g/dL Normal 6.3-8.0 [facility] Comment on above: Order Comment: Speci men Type: BLOOD SPECIMEN Ordering Facility: [facility] Address: [address] [place] [address] Performed By: #### 3 024-7, 60618-2, 3016-3, 25553-7 #### [facility] CLIA [id number] [address] [place] [address] [place] Sodium [Moles/Vol] 139 mmol/L Normal 136-144 [facility] Comment on above: Order Comment: Speci men Type: BLOOD SPECIMEN Ordering Facility: [facility] Address: [address] [place] [address] Performed By: #### 3 024-7, 19710-2, 3016-3, 58220-9 #### [facility] CLIA [id number] [address] [place] [address] [place] Urea nitrogen [Mass/Vol] 33 mg/dL High 7-21 [facility] Comment on above: Order Comment: Speci men Type: BLOOD SPECIMEN Ordering Facility: [facility] Address: [address] [place] [address] Performed By: #### 3 024-7, 54593-2, 3016-3, 56805-5 #### [facility] CLIA [id number] [address] [place] [address] [place] HbA1c (Bld)on 06-16-2024 Average glucose Estimated from glycated hemoglobin (Bld) [Mass/Vol] 194 mg/dL Normal [facility] Comment on above: Order Comment: Speci men Type: BLOOD SPECIMEN Ordering Facility: [facility] Address: [address] [place] [address] Result Comment: eAG: (Estimated average glucose) is a calculated value from HgbA1c and is solar sales representative and assessor of the average blood glucose level in the last 2-3 month period. Performed By: #### 3 024-7, 30294-9, 3016-3, 34191-7 #### [facility] CLIA [id number] [address] [place] [address] [place] HbA1c (Bld) [Mass fraction] 8.4 % High 4.3-5.6 [facility] Comment on above: Order Comment: Leodan clifton Type: BLOOD SPECIMEN Ordering Facility: [facility] Address: [address] [place] [address] Result Comment: [place] Diabetes Association guidelines indicate that patients with HgbA1c in the range 5.7-6.4% are at increased risk for development of diabetes, and intervention by lifestyle modification may be beneficial. HgbA1c greater or equal to 6.5% is considered diagnostic of diabetes. Performed By: #### 3 024-7, 47343-3, 6-3, 85100-5 #### [facility] CLIA [id number] [address] [place] [address] [place] Lipid 1996 panelon 5 Cholesterol [Mass/Vol] 188 mg/dL Normal <200 [facility] Comment on above: Order Comment: Leodan clifton Type: BLOOD SPECIMEN Ordering Facility: [facility] Address: [address] [place] [address] Result Comment: <200 mg/dL, Desirable 200-239 mg/dL, Borderline high >239 mg/dL, High Performed By: #### 3 024-7, 92622-4, 3016-3, 22113-5 #### [facility] CLIA [id number] [address] [place] [address] [place] Cholesterol in HDL [Mass/Vol] 31 mg/dL Low >39 [facility] Comment on above: Order Comment: Leodan clifton Type: BLOOD SPECIMEN Ordering Facility: [facility] Address: [address] [place] [address] Result Comment: 40-5 9 mg/dL, Acceptable >59 mg/dL, High: Negative risk factor for coronary heart disease <40 mg/dL, Low: Positive risk factor for coronary heart disease Performed By: #### 3 024-7, 13699-6, 6-3, 58450-9 #### [facility] CLIA [id number] [address] [place] [address] [place] Cholesterol in LDL [Mass/Vol] 116 mg/dL High <100 [facility] Comment on above: Order Comment: Leodan clifton Type: BLOOD SPECIMEN Ordering Facility: [facility] Address: [address] [place] [address] Result Comment: <100 mg/dL, Optimal 100-129 mg/dL, Near optimal/above optimal 130-159 mg/dL, Borderline high 160-189 mg/dL, High >189 mg/dL, Very high Secondary prevention optimal LDL Cholesterol levels are recommended to be < 70 mg/dL Performed By: #### 3 024-7, 58647-3, 3015-3, 32047-3 #### [facility] CLIA [id number] [address] [place] [address] [place] Cholesterol in LDL/Cholesterol in HDL [Mass ratio] 3.74 {ratio} High <2.54 [facility] Comment on above: Order Comment: Leodan clifton Type: BLOOD SPECIMEN Ordering Facility: [facility] Address: [address] [place] [address] Result Comment: Refe rence: 1. National Cholesterol Education Program ATP III Guideline At-A-Glance Quick Desk Reference: National Heart, Lung, and Blood [place]. National Institutes of Health. 2001: NIH Publication No. 01-3305. 2. An International Atherosclerosis Society position paper: global recommendations for the management of dyslipidemia: executive summary, Atherosclerosis. 2014: 232(2):410-413. Performed By: #### 3 024-7, 87777-8, 3016-3, 19494-0 #### [facility] CLIA [id number] [address] [place] [address] [place] Cholesterol in VLDL [Mass/Vol] 41 mg/dL High <30 [facility] Comment on above: Order Comment: Leodan clifton Type: BLOOD SPECIMEN Ordering Facility: [facility] Address: [address] [place] [address] Performed By: #### 3 024-7, 76081-1, 3015-3, 44891-7 #### [facility] CLIA [id number] [address] [place] [address] [place] Cholesterol non HDL [Mass/Vol] 157 mg/dL High <130 [facility] Comment on above: Order Comment: Speci men Type: BLOOD SPECIMEN Ordering Facility: [facility] Address: [address] [place] [address] Result Comment: <130 mg/dL, Optimal 130-159 mg/dL, Near optimal/above optimal 160-189 mg/dL, Borderline high 190-219 mg/dL, High >219 mg/dL, Very high Secondary prevention optimal non HDL Cholesterol levels are recommended to be <100 mg/dL Performed By: #### 3 024-7, 54174-0, 3015-3, 05264-1 #### [facility] CLIA [id number] [address] [place] [address] [place] Cholesterol.total/Angelia sterol in HDL [Mass ratio] 6.06 {ratio} High <5.10 [facility] Comment on above: Order Comment: Speci men Type: BLOOD SPECIMEN Ordering Facility: [facility] Address: [address] [place] [address] Performed By: #### 3 024-7, 84089-7, 3, 14131-9 #### [facility] CLIA [id number] [address] [place] [address] [place] FASTING TIME 12 hrs Normal [facility] Comment on above: Order Comment: Speci men Type: BLOOD SPECIMEN Ordering Facility: [facility] Address: [address] [place] [address] Performed By: #### 3 024-7, 76254-5, 3015-3, 40159-0 #### [facility] CLIA [id number] [address] [place] [address] [place] Triglyceride [Mass/Vol] 206 mg/dL High <150 [facility] Comment on above: Order Comment: Speci men Type: BLOOD SPECIMEN Ordering Facility: [facility] Address: [address] [place] [address] Result Comment: <150 mg/dL, Normal 150-199 mg/dL, Borderline high 200-499 mg/dL, High >499 mg/dL, Very high Performed By: #### 3 024-7, 58848-0, 3016-3, 09950-4 #### [facility] CLIA [id number] [address] [place] [address] [place] T4 Free SerPl-mCncon 025 Free T4 [Mass/Vol] 1.2 ng/dL Normal 0.9-1.7 [facility] Comment on above: Order Comment: Speci men Type: BLOOD SPECIMEN Ordering Facility: [facility] Address: [address] [place] [address] Performed By: #### 3 024-7, 33915-1, 3016-3, 58598-0 #### [facility] CLIA [id number] [address] [place] [address] [place] TSH SerPl-aCncon 06-16-2024 TSH Qn 1.540 m[IU]/L Normal 0.270-4.200 [facility] Comment on above: Order Comment: Speci men Type: BLOOD SPECIMEN Ordering Facility: [facility] Address: [address] [place] [address] Performed By: #### 3 024-7, 13817-3, 3016-3, 85189-7 #### [facility] CLIA [id number] [address] [place] [address] [place] Urinalysis complete panel (U )on 06-16-2024 BACTERIA UL >9821 High Negative [facility] Comment on above: Order Comment: Speci men Type: URINE SPECIMEN Ordering Facility: [facility] Address: [address] [place] [address] Performed By: #### 2 4356-8 #### [facility] CLIA [id number] [address] [place] [address] [place] Bilirubin Ql (U) Negative Normal Negative [facility] Comment on above: Order Comment: Speci men Type: URINE SPECIMEN [facility]ing Facility: [facility] Address: [address] [place] [address] Performed By: #### 2 4356-8 #### [facility] CLIA [id number] [address] [place] [address] [place] Clarity (Unsp spec) Cloudy Abnormal Clear [facility] Comment on above: Order Comment: Speci men Type: URINE SPECIMEN Ordering Facility: [facility] Address: [address] [place] [address] Performed By: #### 2 4356-8 #### [facility] CLIA [id number] [address] [place] [address] [place] Color (U) Yellow Normal Yellow [facility] Comment on above: Order Comment: Speci men Type: URINE SPECIMEN [facility]ing Facility: [facility] Address: [address] [place] [address] Performed By: #### 2 4356-8 #### [facility] CLIA [id number] [address] [place] [address] [place] Epithelial cells LM.HPF (Urine sed) [#/Area] None Seen Normal [facility] Comment on above: Order Comment: Speci men Type: URINE SPECIMEN [facility]ing Facility: [facility] Address: [address] [place] [address] Performed By: #### 2 4356-8 #### [facility] CLIA [id number] [address] [place] [address] [place] Glucose Test strip (U) [Mass/Vol] Negative Normal Negative [facility] Comment on above: Order Comment: Speci men Type: URINE SPECIMEN [facility]ing Facility: [facility] Address: [address] [place] [address] Performed By: #### 2 4356-8 #### [facility] CLIA [id number] [address] [place] [address] [place] Hemoglobin Ql (U) 1+ Abnormal Negative [facility] Comment on above: Order Comment: Speci men Type: URINE SPECIMEN [facility] Facility[facility] Address: [address] [place] [address] Performed By: #### 2 4356-8 #### [facility] CLIA [id number] [address] [place] [address] [place] Hyaline casts (Urine sed) [#/Area] 1-3 /LPF Abnormal 0 /LPF [facility] Comment on above: Order Comment: Speci men Type: URINE SPECIMEN [facility]ing Facility: [facility] Address: [address] [place] [address] Performed By: #### 2 4356-8 #### [facility] CLIA [id number] [address] [place] [address] [place] Ketones Ql (U) Negative Normal Negative [facility] Comment on above: Order Comment: Speci men Type: URINE SPECIMEN [facility]ing Facility: [facility] Address: [address] [place] [address] Performed By: #### 2 4356-8 #### [facility] CLIA [id number] [address] [place] [address] [place] Leukocyte esterase Test strip Ql (U) 2+ Abnormal Negative [facility] Comment on above: Order Comment: Speci men Type: URINE SPECIMEN [facility]ing Facility: [facility] Address: [address] [place] [address] Performed By: #### 2 4356-8 #### [facility] CLIA [id number] [address] [id number] [address] [place] Nitrite Ql (U) Positive Abnormal Negative [facility] Comment on above: Order Comment: Speci men Type: URINE SPECIMEN [facility]ing Facility: [facility] Address: [address] [place] [address] Performed By: #### 2 4356-8 #### [facility] CLIA [id number] [address] [place] [address] [place] pH (U) 7.0 [pH] Normal <8.5 [facility] Comment on above: Order Comment: Speci men Type: URINE SPECIMEN [facility]ing Facility: [facility] Address: [address] [place] [address] Performed By: #### 2 4356-8 #### [facility] CLIA [id number] [address] [place] [address] [place] Protein (U) [Mass/Vol] Trace Abnormal Negative [facility] Comment on above: Order Comment: Speci men Type: URINE SPECIMEN [facility]ing Facility[facility] Address: [address] [place] [address] Performed By: #### 2 4356-8 #### [facility] CLIA [id number] [address] [place] [address] [place] RBC LM.HPF (Urine sed) [#/Area] 6-10 /HPF Abnormal 0-2 /HPF [facility] Comment on above: Order Comment: Speci men Type: URINE SPECIMEN [facility]ing Facility: [facility] Address: [address] [place] [address] Performed By: #### 2 4356-8 #### [facility] CLIA [id number] [address] [place] [address] [place] Specific gravity (U) [Rel density] 1.017 Normal 1.005-1.030 [facility] Comment on above: Order Comment: Speci men Type: URINE SPECIMEN [facility]ing Facility: [facility] Address: [address] [place] [address] Performed By: #### 2 4356-8 #### [facility] CLIA [id number] [address] [place] [address] [place] Urobilinogen Ql (U) 0.2 EU/dL Normal 0.2-1.0 EU/dL [facility] Comment on above: Order Comment: Speci men Type: URINE SPECIMEN [facility]ing Facility: [facility] Address: [address] [place] [address] Performed By: #### 2 4356-8 #### [facility] CLIA [id number] [address] [place] [address] [place] WBC LM.HPF (Urine sed) [#/Area] /[HPF] Abnormal 0-5 /HPF [facility] Comment on above: Order Comment: Speci men Type: URINE SPECIMEN [facility]ing Facility: [facility] Address: [address] [place] [address] Performed By: #### 2 4356-8 #### [facility] CLIA [id number] [address] [place] [address] [place] CNOVon 06-12-2024 CNOV Office Visit (LORENEPWS) TARIK BAKER ([id number]) 1945 F [place] Date Time Provider Department 06/12/24 2:20 PM ZAC LINTON FAMPWS During your visit today, we recorded the following information about you: Pulse Respiration Blood pressure Weight 80/minute 16/minute 120/72 92.9 kg Zac Linton MD 06/12/2024 3:13 PM Signed Chief Complaint Patient presents with: 6 Month Exam HPI Tarik Baker is a 78 year old female who presents here today for 6 month follow up. Here with . No bowel, Gi, or urinary issues. She has chronic UTI's and usually has to have 2 rounds of antibiotic to treat. Feels she needs 10 days of antibiotics to fulling treat. Urinary frequency, it is not every day. She does not feel like she has a urinary infection. Unsure if this is related to the lasix or if she has OAB. PE: Taking Eliquis 5 mg twice daily. Has been recommended to continue indefinitely, due to no provoking factors for PE and history of a fib. Palpitations: Taking aspirin 325 mg daily and Vasotec 20 mg daily and metoprolol tartrate 25 mg twice daily. Stable, no palpitation. Dr. Hinton at [facility], follows regularly. Had an episode of chest pain that lasted a few minutes, gave her an extra Eliquis and it resolved. Lower leg swelling: Taking Lasix 20 mg daily. Lipids: Taking fenofibrate 160 mg daily. Hypothyroidism: Taking Synthroid 175 mcg daily. No missed dosage. DM: He checks the BS before bed at Midnight and if it is under 200 he gives her a snack and then in the AM around 7 AM. Checking BS once daily, FBS running 110. The BS at night can be 265 at times around 1 AM before going to bed. Using Humulin/Novolin 24 units AM and 24 units PM. feels that her insulin should be increased some. No hypoglycemic episodes. Mild neuropathy in feet. Has not seen eye doctor for some time. Vitamin D deficiency: Taking vitamin D2 50,000 IUs once weekly. Mood: Taking Zoloft 100 mg daily. Past medical history, appointments, medications, allergies reviewed. Previous Medical History PAST MEDICAL HISTORY Diagnosis Date Diabetes (HCC) Essential hypertension History of cardiovascular stress test 12/2020 ef 60, no ischemia Previous Surgical History PAST SURGICAL HISTORY Procedure Laterality Date TUBAL LIGATION HX Family History FAMILY HISTORY Problem Relation Age of Onset No Known Problems Mother No Known Problems Father No Known Problems Maternal Grandmother No Known Problems Maternal Grandfather No Known Problems Paternal Grandmother No Known Problems Paternal Grandfather Patient Allergies ALLERGIES Allergen Reactions Prednisone Other: See Comments Sugar went over 900 Current Medications Current Outpatient Medications on File Prior to Visit Medication Sig apixaban (ELIQUIS) 5 mg tab(s) Take 1 tablet by mouth two times a day. apixaban (ELIQUIS) 5 mg tab(s) Take 1 tablet by mouth two times a day. enalapril (VASOTEC) 20 mg tablet Take 1 tablet by mouth once daily. ergocalciferol 50,000 unit capsule (VITAMIN D2, DRISDOL) Take 1 capsule by mouth one time a week. Fenofibrate (LOFIBRA) 160 mg tablet Take 1 tablet by mouth once daily. furosemide (LASIX) 20 mg tablet Take 1 tablet by mouth once daily. levothyroxine (SYNTHROID) 175 mcg tablet Take 1 tablet by mouth once daily. Take on empty stomach. For Thyroid. metoprolol tartrate, short acting, (LOPRESSOR) 25 mg tablet Take 1 tablet by mouth two times a day. sertraline (ZOLOFT) 100 mg tablet Take 1 tablet by mouth once daily. red beet root-sour raines ext 250-0.5 mg chew Take 1 tablet by mouth once daily. nystatin (MYCOSTATIN) cream Apply to affected area two times a day. vit A,C,Y-Kkvt-Kgtnjn (PRESERVISION AREDS) 2,148 mcg-113 mg-45 mg-17.4mg tab Take 1 tablet by mouth daily with breakfast. insulin NPH injection (HumuLIN N,NovoLIN N) 24 units in the am and 24 units in the pm. aspirin, enteric coated (ASPIRIN, ENTERIC COATED) 325 mg EC tablet Take 1 tablet by mouth once daily. Take with food. (Patient not taking: Reported on 02/14/2024) multivitamin with minerals (MULTIPLE VITAMINS 55 PLUS ORAL) Take 1 capsule by mouth once daily. Ascorbic Acid (VITAMIN C) 100 mg tablet ZINC ORAL Take by mouth. No current facility-administere d medications on file prior to visit. Social History Social History Tobacco Use Smoking status: Never Smokeless tobacco: Never Vaping Use Vaping status: Never Used Substance Use Topics Alcohol use: Never Drug use: Never EXAM: BP 120/72 Pulse 80 Resp 16 Wt 92.9 kg (204 lb 12.9 oz) SpO2 97% BMI 34.08 kg/m? General Appearance: Well appearing, alert, in no acute distress, well-hydrated, well nourished. and Walker. Lungs: Lungs clear to auscultation. No wheezing, rhonchi, rales.. Heart: RRR without murmur, gallop, or rubs. No ectopy. He (more content not included)... Normal [facility] CNPNon 05-20-2024 CNPN Telephone (FAMPWS) TARIK BAKER ([id number]) 1945 F [place] Date Time Provider Department 05/20/24 ZAC LINTON FAMWS During your visit today, we recorded the following information about you: Nanci Wills 05/20/2024 4:25 PM Signed Alejandra is calling Zac Linton MD today to request Refill on her antibiotic for her UTI. She is not sure of what the name of it is. Patient has been identified by name and birthdate. Duration of symptoms: N/A Person calling: self Call patient at: at home [phone] (home) Was an appointment scheduled: No Closing statement: Results or non-symptom based questions: Thank you for calling [facility], your call will be returned within the next business day. Zac Mcneal MD 05/22/2024 8:36 AM Signed Ok for Cipro as ordered Zac Linton MD Allergies As of Date: 05/20/2024 Noted Allergy Reaction PREDNISONE 09/06/2015 14 - Other: See Comments Comments: Sugar went over 900 Date Reviewed: 02/14/2024 Reviewed by: Kaitlynn Mason OCCA - Fully Assessed Reason for Visit: Refill Request [94] Order(s):ciprofloxac in HCl (CIPRO) 500 mg tabletTake 1 tablet by mouth two times a day for 5 days.Disp: 10 tabletRfl: 0 Prescriptions as of 05/22/2024 - ciprofloxacin HCl (CIPRO) 500 mg tablet Take 1 tablet by mouth two times a day for 5 days. - apixaban (ELIQUIS) 5 mg tab(s) Take 1 tablet by mouth two times a day. - apixaban (ELIQUIS) 5 mg tab(s) Take 1 tablet by mouth two times a day. - enalapril (VASOTEC) 20 mg tablet Take 1 tablet by mouth once daily. - ergocalciferol 50,000 unit capsule (VITAMIN D2, DRISDOL) Take 1 capsule by mouth one time a week. - Fenofibrate (LOFIBRA) 160 mg tablet Take 1 tablet by mouth once daily. - furosemide (LASIX) 20 mg tablet Take 1 tablet by mouth once daily. - levothyroxine (SYNTHROID) 175 mcg tablet Take 1 tablet by mouth once daily. Take on empty stomach. For Thyroid. - metoprolol tartrate, short acting, (LOPRESSOR) 25 mg tablet Take 1 tablet by mouth two times a day. - sertraline (ZOLOFT) 100 mg tablet Take 1 tablet by mouth once daily. - red beet root-sour raines ext 250-0.5 mg chew Take 1 tablet by mouth once daily. - nystatin (MYCOSTATIN) cream Apply to affected area two times a day. - vit A,C,J-Khfv-Iexggu (PRESERVISION AREDS) 2,148 mcg-113 mg-45 mg-17.4mg tab Take 1 tablet by mouth daily with breakfast. - insulin NPH injection (HumuLIN N,NovoLIN N) 24 units in the am and 24 units in the pm. - aspirin, enteric coated (ASPIRIN, ENTERIC COATED) 325 mg EC tablet Take 1 tablet by mouth once daily. Take with food. - multivitamin with minerals (MULTIPLE VITAMINS 55 PLUS ORAL) Take 1 capsule by mouth once daily. - Ascorbic Acid (VITAMIN C) 100 mg tablet - ZINC ORAL Take by mouth. Problem List As Of Date 05/20/2024 Noted Resolved History of temporal arteritis [Z87.39] 09/06/2015 Type 2 diabetes mellitus with hyperglycemia, wi*09/06/2015 Diabetes (HCC) [E11.9] Hypothyroidism, acquired [E03.9] 06/21/2020 Hypertriglyceridemia [E78.1] 06/21/2020 Obesity, Class I, BMI 30-34.9 [E66.811] 06/21/2020 Vitamin D deficiency [E55.9] 06/21/2020 Primary hypertension [I10] 12/12/2020 History of non-ST elevation myocardial infarcti*04/10/2022 Chronic kidney disease, stage 3a (HCC) [N18.31] 11/08/2022 Prescriptions ordered this encounter Disp Refills Start End CIPROFLOXACIN 500 MG TABLET 10 t* 0 05/22/2024 05/27/2024 Route: ORAL Sig: Take 1 tablet by mouth two times a day for 5 days. Medications Discontinued During This Encounter Prescriptions - ciprofloxacin HCl (CIPRO) 500 mg tablet (Discontinued) Take 1 tablet by mouth two times a day for 5 days. Encounter Status:Closed by LINDSAY TENA on 05/22/24 [facility] MR/BMS.BVSon 04-21-2024 MR/BMS.BVS [facility] Vascular Surgery [address] [place] [address] OFFICE VISIT Date of Service: 04/21/24 MR#: [id number] Acct: [id number] Name: TARIK BAKER Rep #: [id number] : 1945 Provider: YADI Kline Age/Sex: 78/F Location: [facility].BV Status: Signed Intake Vital Signs 03/23/24 08:30 04/21/24 13:59 Height 5 ft 5 in Weight: 206 lb 198 lb BMI 34.2 BP 145/81 H 138/75 H Blood Pressure Location Lt brachial Lt brachial Position Sitting Sitting Respiration 16 16 Pulse 76 87 Pulse Source NIBP Monitor Temp 97.8 F Temp Source Temporal Pulse Oximetry (%) 97 Oxygen Delivery Method room air Intake Visit Reasons: Post hospital FU, was seen as consult Chief Complaint: establish care Is patient in pain?: No Allergies prednisone Allergy (Mild, Verified 04/21/24 14:02) Swelling Is last menstrual period known: No Post menopausal: Yes Patient : No Have you fallen in the past year?: Yes PFSH Medical History Hypoxemia Bilateral pulmonary embolism Depression Non-smoker Pulmonary embolism Myocardial infarct TIA (transient ischemic attack) Atrial fibrillation Hypercholesteremia Diabetes Hypothyroid Surgical History H/O tubal ligation Social History Smoking Status: Never smoker Electronic Cigarette Use: not used alcohol intake: never substance use type: does not use HPI HPI HPI: TARIK BAKER, is a 78 F who presents to the office today for post-hospital follow-up after recent admission for PE. She is accompanied to her appointment today by her . She initially presented to the [facility] ER 02/04/24 with acute dyspnea; CTA revealed bilateral PE with possible right heart strain. She had negative biomarkers. Echo showed PAH, preserved EF. Her symptoms improved significantly with anticoagulation alone. She was discharged on Eliquis. Lower extremity duplex had revealed R TP trunk DVT. She had reported a few day history of mild SOB prior to her sudden worsening on 02/03. She had no clear provoking factors. She'd had a fall a few months prior but without any significant injury. No history of cancer and reportedly up to date on screenings. No recent travel or illness. She is generally sedentary. She also has a history of paroxysmal Afib but to this point has not been anticoagulated for this. She reports that she has been doing well since discharge. Her SOB has resolved. She has had some persistent bilateral lower extremity edema, she feels left a bit worse than right. She did recently increase her diuretic and this has helped a lot with her swelling. She is not wearing compression. She recently saw cardiology who advised increasing her diuretic and enalapril, but patient and misunderstood and instead increased her lasix and Eliquis. She had been taking Eliquis 10mg BID until recently when they received clarification from cardiology. No adverse bleeding. She will need a refill soon but she says that her PCP will be refilling her Eliquis going forward. She has not yet followed up with pulmonary since her discharge. ROS General General: Yes weakness; No weight change, appetite, fatigue, colon cancer or breast cancer HEENT HEENT: Yes eye surgery; No difficulty swallowing, eye injury, swollen glands or hoarseness Endo Endocrine: Yes thyroid disease and diabetes mellitus; No thyroid cancer, Hair loss, heat intolerance or cold intolerance Skin Skin: No rash or changing moles Musc Musculoskeletal: No back problems, arthritis, rheumatoid arthritis, gout or joint pain Cardio Cardiovascular: Yes murmur and heart attack; No pacemaker, heart disease, atrial fibrillation, high blood pressure, heart stent, palpitations, shortness of breat with exertion or chest pain Psych Psychiatric: Yes depression and anxiety; No hearing voices Resp Respiratory: No shortness of breath, No sleep apnea, No cough, No COPD, No asthma, No emphysema and No wheezing Gastro Gastrointestinal: No abdominal pain, No nausea or vomiting, No diarrhea, No constipation, No blood in stool, No acid reflux, No hemorrhoids, No ulcers, No gallbladder problem and No black,tarry stools Larry Hematologic: Yes blood thinners, No blood disorders, No bleeding, No anemia and Yes blood clots Neuro Neurologic: No system reviewed and no additional complaints, except as documented, No as per HPI, No abnormal gait, No abnormal hearing, No abnormal movements, No abnormal speech, No behavioral changes, No burning sensations, No confusion, No convulsions, Yes disequilibrium, No dizziness, No localized weakness, No frequent falls, No headache(s), Yes lack of (more content not included)... Normal [facility] 04-13-2024 [facility] Telephone (FAMWS) TARIK BAKER ([id number]) 1945 F Date Time Provider Department 04/13/24 ZAC LINTON [facility] During your visit today, we recorded the following information about you: Cinthya Syed MA 04/13/2024 3:58 PM Signed Pt daughter Breanna Jackman needs [place] forms completed/updated for [facility] to help with patient care and appts. Fax once completed. VIN Del Real Mark D, MD 04/14/2024 2:56 PM Signed Form done; same as last year; for providing basic medical care, hygiene, safety needs and transportation; 2 episodes/month for 3 days each. MD Rober Sykes Rilee, MA 04/14/2024 3:05 PM Signed Form has been faxed back to the [facility] ATTN: Shamika Nunez at F#: [phone]. Will [address] in pt's chart under scanned documents in future. Jayla Jaeger MA Allergies As of Date: 04/13/2024 Noted Allergy Reaction PREDNISONE 09/06/2015 14 - Other: See Comments Comments: Sugar went over 900 Date Reviewed: 02/14/2024 Reviewed by: Kaitlynn Mason OCCA - Fully Assessed Reason for Visit: [place] Paperwork [0970] Cmt: Completed for daughter to help with care and appts Prescriptions as of 04/14/2024 - apixaban (ELIQUIS) 5 mg tab(s) Take 1 tablet by mouth two times a day. - apixaban (ELIQUIS) 5 mg tab(s) Take 1 tablet by mouth two times a day. - enalapril (VASOTEC) 20 mg tablet Take 1 tablet by mouth once daily. - ergocalciferol 50,000 unit capsule (VITAMIN D2, DRISDOL) Take 1 capsule by mouth one time a week. - Fenofibrate (LOFIBRA) 160 mg tablet Take 1 tablet by mouth once daily. - furosemide (LASIX) 20 mg tablet Take 1 tablet by mouth once daily. - levothyroxine (SYNTHROID) 175 mcg tablet Take 1 tablet by mouth once daily. Take on empty stomach. For Thyroid. - metoprolol tartrate, short acting, (LOPRESSOR) 25 mg tablet Take 1 tablet by mouth two times a day. - sertraline (ZOLOFT) 100 mg tablet Take 1 tablet by mouth once daily. - red beet root-sour raines ext 250-0.5 mg chew Take 1 tablet by mouth once daily. - nystatin (MYCOSTATIN) cream Apply to affected area two times a day. - vit A,C,T-Evat-Nmzgwl (PRESERVISION AREDS) 2,148 mcg-113 mg-45 mg-17.4mg tab Take 1 tablet by mouth daily with breakfast. - insulin NPH injection (HumuLIN N,NovoLIN N) 24 units in the am and 24 units in the pm. - aspirin, enteric coated (ASPIRIN, ENTERIC COATED) 325 mg EC tablet Take 1 tablet by mouth once daily. Take with food. - multivitamin with minerals (MULTIPLE VITAMINS 55 PLUS ORAL) Take 1 capsule by mouth once daily. - Ascorbic Acid (VITAMIN C) 100 mg tablet - ZINC ORAL Take by mouth. Problem List As Of Date 04/13/2024 Noted Resolved History of temporal arteritis [Z87.39] 09/06/2015 Type 2 diabetes mellitus with hyperglycemia, wi*09/06/2015 Diabetes (HCC) [E11.9] Hypothyroidism, acquired [E03.9] 06/21/2020 Hypertriglyceridemia [E78.1] 06/21/2020 Obesity, Class I, BMI 30-34.9 [E66.811] 06/21/2020 Vitamin D deficiency [E55.9] 06/21/2020 Primary hypertension [I10] 12/12/2020 History of non-ST elevation myocardial infarcti*04/10/2022 Chronic kidney disease, stage 3a (HCC) [N18.31] 11/08/2022 Encounter Status:Closed by JAYLA JAEGER on 04/14/24 [facility] 12 Lead EKG performed by [facility] on 03-23-2024 12 Lead EKG performed by [address] [address] 12 Lead EKG performed by [facility] 03/23/24 1106 MR#: [id number] Acct: [id number] Name: TARIK BAKER Rep #: [id number] : 1945 78 From: Josue Hsu MD Attending Dr: Dr. Josue Hsu MD Status: DEP AMB Ordering Dr: Josue Hsu MD Date: 03/23/24 Location: [facility] Sex: F C Admitted: BMS/12 Lead EKG performed by [facility] ECG Report Interpretation ------Sinus Rhythm - occasional ectopic ventricular beat -Right bundle branch block with left axis -bifascicular block. -Left atrial enlargement. ABNORMAL Electronically signed on 06/01/2024 at 11:[address] Josue Hsu [employer] Version [id number] 06/01/24 1115 Date Josue Hsu MD CC: Dr. Zac Linton MD Date Dictated: 03/23/241105 Date Transcribed: 03/23/241105 Pretzel Cooker: LOYD Signed Normal [facility] Cardiology Visit Reporton Cardiology Visit Report [facility] [address] [place], [place] [address] OFFICE VISIT Date of Service: 03/23/24 MR#: [id number] Acct: [id number] Name: TARKI BAKER Rep #: [id number] : 1945 Provider: Dr. Josue Hsu MD Age/Sex: 78/F Location: [facility] Status: Signed HPI HPI History of Present Illness Details: This lady has past medical history significant for hypertension, dyslipidemia, diabetes mellitus and paroxysmal atrial fibrillation. Last month, she was diagnosed with acute DVT and pulmonary embolism. This is thought to be unprovoked. Echocardiogram revealed normal left ventricular systolic function. Her pulmonary artery systolic pressure was noted to be 70 mmHg. Patient has been referred to us for evaluation and management of her lower extremity edema. Denies any chest pains or shortness of breath. Denies any palpitations. No orthopnea or PND. According to her, her lower extremity edema has been getting better. She is tolerating her apixaban well and denies any abnormal bleeding. 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: No Accompanied by: Is patient in pain?: No Allergies prednisone Allergy (Mild, Verified 03/23/24 11:06) unknown Medications ???Medication ???Instructions ???Recorded ???Confirmed ???Type fenofibrate 160 mg tablet 160 mg PO DAILY 12/18/20 03/23/24 History ascorbic acid (vitamin C) 100 mg 100 mg PO QDAY 01/24/24 03/23/24 History tablet aspirin 325 mg tablet 325 mg PO QDAY 01/24/24 03/23/24 History enalapril maleate 20 mg tablet 20 mg PO QDAY 01/24/24 03/23/24 History ergocalciferol (vitamin D2) 1,250 1,250 mcg PO MO 01/24/24 03/23/24 History mcg (50,000 unit) capsule levothyroxine 175 mcg tablet 175 mcg PO QDAY 01/24/24 03/23/24 History (Synthroid) multivitamin 1 tab PO QAM 01/24/24 03/23/24 History sertraline 100 mg tablet 100 mg PO QDAY 01/24/24 03/23/24 History furosemide 20 mg tablet 20 mg PO DAILY 02/04/24 03/23/24 History metoprolol tartrate 25 mg tablet 25 mg PO BID 02/04/24 03/23/24 History zinc gluconate 100 mg tablet 100 mg PO DAILY 02/04/24 03/23/24 History apixaban 5 mg (74 tabs) tablets in 5 mg PO BID #74 tabs 02/06/24 03/23/24 Rx a dose pack ([place] DVT-PE Treat 30D Start) insulin NPH isoph U-100 human 100 24 unit subcut BID 03/23/24 03/23/24 History unit/mL subcutaneous suspension (Novolin N NPH U-100 Insulin isophane) Ejection fraction %: 60 Have you fallen in the past year?: Yes (unable to describe; trauma to LUE; resolved) [facility] Medical History Atrial fibrillation Bilateral pulmonary embolism Depression Diabetes Hypercholesteremia Hypothyroid Hypoxemia Myocardial infarct Non-smoker Pulmonary embolism TIA (transient ischemic attack) Surgical History H/O tubal ligation Social History Smoking Status: Never smoker Electronic Cigarette Use: not used alcohol intake: never substance use type: does not use ROS Const Const: Positive for weakness (generalized); Negative for fatigue, headache(s) or weight gain ENT ENT: Positive for balance problems (uses rollator); Negative for headache(s), dizziness or Nosebleed/epistaxis Cardio Chest Pain: No Palpitations: No Edema: Left (LLE; DVTs per pt; on Eliquis) and None Muscle aches with walking: None Resp Respiratory: Negative for SOB with activity, SOB at rest or SOB orthopnea SOB lying down GI GI: Negative nausea, vomiting or heartburn Musc Musc: Positive for balance problems (uses rollator); Negative for muscle aches/ myalgia, muscle weakness or joint pain Neuro Neuro: Positive for weakness (generalized); Negative for dizziness, lightheadedness, near syncope, syncope or headache(s) Endo Endo: Negative for fatigue Cardiology Exam Const Appearance: comfortable and no acute distress Nutritional Appearance: well nourished Neck Neck: no JVD Carotids: Negative bruit Chest Auscultation: Bilateral: Clear to Auscultation Cardio Rate: regular rate Rhythm: regular rhythm Heart sounds: S1 normal and S2 normal Neuro General: patient alert, patient awake and patient oriented x3 Extremities Lower Extremity Edema: +2: Bilateral Supplemental Info Supplemental Information Echocardiogram 02/05/2024: Interpretation Summary: The estimated ejection fraction is 60 %. Diastolic function is indeterminate. (more content not included)... Normal [facility] 03-17-2024 [facility] Telephone (PolicyBazaar) TARIK BAKER ([id number]) 1945 F Date Time Provider Department 03/17/24 ZAC LINTON [facility] During your visit today, we recorded the following information about you: Ivonne Dolan, BRITTON 03/17/2024 11:47 AM Signed reports pt is having UTI s/s since yesterday. Pt reports urgency, frequency, burning with urination, and was up all night going to the bathroom. Pt states she does not want to come in for an appt if she doesn't have to. Pt states she is willing to give a urine sample if pcp would place order. Pt also wants pcp to know she takes eliquis. Please advise and phone patient with reply: [phone] [facility] Zac Melissa MD 03/17/2024 2:17 PM Signed OK for Cipro for 5 days as ordered MD James Sykes Jacqueline, LPN 03/17/2024 2:31 PM Signed Patient notified. Verbalized understanding. Allergies As of Date: 03/17/2024 Noted Allergy Reaction PREDNISONE 09/06/2015 14 - Other: See Comments Comments: Sugar went over 900 Date Reviewed: 02/14/2024 Reviewed by: Kaitlynn Mason OCCA - Fully Assessed Reason for Visit: UTI s/s [Other] Order(s):ciprofloxac in HCl (CIPRO) 500 mg tabletTake 1 tablet by mouth two times a day for 5 days.Disp: 10 tabletRfl: 0 Prescriptions as of 03/17/2024 - ciprofloxacin HCl (CIPRO) 500 mg tablet Take 1 tablet by mouth two times a day for 5 days. - apixaban (ELIQUIS) 5 mg tab(s) Take 1 tablet by mouth two times a day. - apixaban (ELIQUIS) 5 mg tab(s) Take 1 tablet by mouth two times a day. - enalapril (VASOTEC) 20 mg tablet Take 1 tablet by mouth once daily. - ergocalciferol 50,000 unit capsule (VITAMIN D2, DRISDOL) Take 1 capsule by mouth one time a week. - Fenofibrate (LOFIBRA) 160 mg tablet Take 1 tablet by mouth once daily. - furosemide (LASIX) 20 mg tablet Take 1 tablet by mouth once daily. - levothyroxine (SYNTHROID) 175 mcg tablet Take 1 tablet by mouth once daily. Take on empty stomach. For Thyroid. - metoprolol tartrate, short acting, (LOPRESSOR) 25 mg tablet Take 1 tablet by mouth two times a day. - sertraline (ZOLOFT) 100 mg tablet Take 1 tablet by mouth once daily. - red beet root-sour raines ext 250-0.5 mg chew Take 1 tablet by mouth once daily. - nystatin (MYCOSTATIN) cream Apply to affected area two times a day. - vit A,C,F-Zxgw-Vnurue (PRESERVISION AREDS) 2,148 mcg-113 mg-45 mg-17.4mg tab Take 1 tablet by mouth daily with breakfast. - insulin NPH injection (HumuLIN N,NovoLIN N) 24 units in the am and 24 units in the pm. - aspirin, enteric coated (ASPIRIN, ENTERIC COATED) 325 mg EC tablet Take 1 tablet by mouth once daily. Take with food. - multivitamin with minerals (MULTIPLE VITAMINS 55 PLUS ORAL) Take 1 capsule by mouth once daily. - Ascorbic Acid (VITAMIN C) 100 mg tablet - ZINC ORAL Take by mouth. Problem List As Of Date 03/17/2024 Noted Resolved History of temporal arteritis [Z87.39] 09/06/2015 Type 2 diabetes mellitus with hyperglycemia, wi*09/06/2015 Diabetes (HCC) [E11.9] Hypothyroidism, acquired [E03.9] 06/21/2020 Hypertriglyceridemia [E78.1] 06/21/2020 Obesity, Class I, BMI 30-34.9 [E66.811] 06/21/2020 Vitamin D deficiency [E55.9] 06/21/2020 Primary hypertension [I10] 12/12/2020 History of non-ST elevation myocardial infarcti*04/10/2022 Chronic kidney disease, stage 3a (HCC) [N18.31] 11/08/2022 Prescriptions ordered this encounter Disp Refills Start End CIPROFLOXACIN 500 MG TABLET 10 t* 0 03/17/2024 03/22/2024 Route: ORAL Sig: Take 1 tablet by mouth two times a day for 5 days. Encounter Status:[facility] LINDSAY TENA [facility] (JULISAWS) TARIK BAKER ([id number]) 1945 F Date Time Provider Department 02/28/24 [facility] During your visit today, we recorded the following information about you: Alexandra Florentino LPN 02/28/2024 9:49 AM Signed Padmini with [facility] nursing called to let you know pt is being d/c from nursing. Pt has met her goals. No call back needed. ISIDORO Mark Mark D, MD 02/28/2024 11:41 AM Signed Noted Zac Linton MD Allergies As of Date: 02/28/2024 Noted Allergy Reaction PREDNISONE 09/06/2015 14 - Other: See Comments Comments: Sugar went over 900 Date Reviewed: 02/14/2024 Reviewed by: Kaitlynn Mason OCCA - Fully Assessed Reason for Visit: [facility] [Other] Prescriptions as of 02/28/2024 - apixaban (ELIQUIS) 5 mg tab(s) Take 1 tablet by mouth two times a day. - apixaban (ELIQUIS) 5 mg tab(s) Take 1 tablet by mouth two times a day. - enalapril (VASOTEC) 20 mg tablet Take 1 tablet by mouth once daily. - ergocalciferol 50,000 unit capsule (VITAMIN D2, DRISDOL) Take 1 capsule by mouth one time a week. - Fenofibrate (LOFIBRA) 160 mg tablet Take 1 tablet by mouth once daily. - furosemide (LASIX) 20 mg tablet Take 1 tablet by mouth once daily. - levothyroxine (SYNTHROID) 175 mcg tablet Take 1 tablet by mouth once daily. Take on empty stomach. For Thyroid. - metoprolol tartrate, short acting, (LOPRESSOR) 25 mg tablet Take 1 tablet by mouth two times a day. - sertraline (ZOLOFT) 100 mg tablet Take 1 tablet by mouth once daily. - red beet root-sour raines ext 250-0.5 mg chew Take 1 tablet by mouth once daily. - nystatin (MYCOSTATIN) cream Apply to affected area two times a day. - vit A,C,J-Ycof-Xaumwz (PRESERVISION AREDS) 2,148 mcg-113 mg-45 mg-17.4mg tab Take 1 tablet by mouth daily with breakfast. - insulin NPH injection (HumuLIN N,NovoLIN N) 24 units in the am and 24 units in the pm. - aspirin, enteric coated (ASPIRIN, ENTERIC COATED) 325 mg EC tablet Take 1 tablet by mouth once daily. Take with food. - multivitamin with minerals (MULTIPLE VITAMINS 55 PLUS ORAL) Take 1 capsule by mouth once daily. - Ascorbic Acid (VITAMIN C) 100 mg tablet - ZINC ORAL Take by mouth. Problem List As Of Date 02/28/2024 Noted Resolved History of temporal arteritis [Z87.39] 09/06/2015 Type 2 diabetes mellitus with hyperglycemia, wi*09/06/2015 Diabetes (HCC) [E11.9] Hypothyroidism, acquired [E03.9] 06/21/2020 Hypertriglyceridemia [E78.1] 06/21/2020 Obesity, Class I, BMI 30-34.9 [E66.811] 06/21/2020 Vitamin D deficiency [E55.9] 06/21/2020 Primary hypertension [I10] 12/12/2020 History of non-ST elevation myocardial infarcti*04/10/2022 Chronic kidney disease, stage 3a (HCC) [N18.31] 11/08/2022 Encounter Status:Closed by ZAC LINTON on 02/28/24 [facility]AR[facility] ([id number]) 1945 F Date Time Provider Department 02/17/24 [facility] During your visit today, we recorded the following information about you: Guillermina Ordonez, BRITTON 02/17/2024 4:56 PM Signed Concetta with [facility] calling and reports pt's BP was elevated at 148/92 during today's visit. Reports patient is asymptomatic. Please advise patient. Thank you. Zac Linton MD 02/17/2024 5:25 PM Signed Noted May just continue to monitor MD Brenna Sykes Amanda, RN 02/18/2024 8:24 AM Signed Called and left a detailed voicemail notifying Concetta-[facility] Nurse of providers message. Clinic phone number was left in case she had any questions. Jocy Ceja RN Allergies As of Date: 02/17/2024 Noted Allergy Reaction PREDNISONE 09/06/2015 14 - Other: See Comments Comments: Sugar went over 900 Date Reviewed: 02/14/2024 Reviewed by: Kaitlynn Mason OCCA - Fully Assessed Reason for Visit: Patient Update [1234] Prescriptions as of 02/18/2024 - apixaban (ELIQUIS) 5 mg tab(s) Take 1 tablet by mouth two times a day. - enalapril (VASOTEC) 20 mg tablet Take 1 tablet by mouth once daily. - ergocalciferol 50,000 unit capsule (VITAMIN D2, DRISDOL) Take 1 capsule by mouth one time a week. - Fenofibrate (LOFIBRA) 160 mg tablet Take 1 tablet by mouth once daily. - furosemide (LASIX) 20 mg tablet Take 1 tablet by mouth once daily. - levothyroxine (SYNTHROID) 175 mcg tablet Take 1 tablet by mouth once daily. Take on empty stomach. For Thyroid. - metoprolol tartrate, short acting, (LOPRESSOR) 25 mg tablet Take 1 tablet by mouth two times a day. - sertraline (ZOLOFT) 100 mg tablet Take 1 tablet by mouth once daily. - apixaban (ELIQUIS) 5 mg tab(s) Take 1 tablet by mouth two times a day. - red beet root-sour raines ext 250-0.5 mg chew Take 1 tablet by mouth once daily. - nystatin (MYCOSTATIN) cream Apply to affected area two times a day. - vit A,C,Q-Muna-Bqivpg (PRESERVISION AREDS) 2,148 mcg-113 mg-45 mg-17.4mg tab Take 1 tablet by mouth daily with breakfast. - insulin NPH injection (HumuLIN N,NovoLIN N) 24 units in the am and 24 units in the pm. - aspirin, enteric coated (ASPIRIN, ENTERIC COATED) 325 mg EC tablet Take 1 tablet by mouth once daily. Take with food. - multivitamin with minerals (MULTIPLE VITAMINS 55 PLUS ORAL) Take 1 capsule by mouth once daily. - Ascorbic Acid (VITAMIN C) 100 mg tablet - ZINC ORAL Take by mouth. Problem List As Of Date 02/17/2024 Noted Resolved History of temporal arteritis [Z87.39] 09/06/2015 Type 2 diabetes mellitus with hyperglycemia, wi*09/06/2015 Diabetes (HCC) [E11.9] Hypothyroidism, acquired [E03.9] 06/21/2020 Hypertriglyceridemia [E78.1] 06/21/2020 Obesity, Class I, BMI 30-34.9 [E66.811] 06/21/2020 Vitamin D deficiency [E55.9] 06/21/2020 Primary hypertension [I10] 12/12/2020 History of non-ST elevation myocardial infarcti*04/10/2022 Chronic kidney disease, stage 3a (HCC) [N18.31] 11/08/2022 Encounter Status:Closed by JOCY CEJA on 02/18/24 [facility]OV[facility] 02-14-2024 CNOV Office Visit (FAMWS) TARIK BAKER ([id number]) 1945 F LV Date Time Provider Department 02/14/24 11:00 AM PADMINI MOSER [facility] During your visit today, we recorded the following information about you: Pulse Respiration Blood pressure Weight 76/minute 18/minute 138/90 89.9 kg 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 APRN.CNP 02/14/2024 11:47 AM Signed This is a 78 year old female who presents today with: Patient presents with: ER F/U: Seen in [facility] 02/06 and was diagnosed with blood clots, has home health and has been doing well, states SOB has improved HISTORY OF PRESENT ILLNESS: Dorenedwight Shahid Baker is a 78 year old female. Patient presents with: ER F/U: Seen in [facility] 02/06 and was diagnosed with blood clots, has home health and has been doing well, states SOB has improved HOSPITAL/ER FOLLOW UP: Reason for visit: SOB Which facility: [facility] ER Date of visit: 02/04/2024- 4 Diagnosis: Bilateral pulmonary embolism Testing done: Chest x-ray showed no acute cardiopulmonary process. CT of chest reveals a bilateral significant pulmonary embolism. Dr. Singh was consulted, no need for surgery . Negative troponin, BNP, lactic acid. EKG showed normal sinus rhythm, right bundle branch block. Treatment given: Heparin drip initiated in ER.Discharged on Eliquis 5 mg twice daily. Refer to Dr. Anne in 1 month, [facility] pulmonology. Current symptoms: SOB is improving. Doing well on Eliquis, No chest pain or dizziness. Home health is coming to the house a couple times a week, PT, OT, and home health nurse. Needs to schedule follow up with Dr. Anne. PAST MEDICAL HISTORY: PAST MEDICAL HISTORY Diagnosis Date Diabetes (HCC) Essential hypertension History of cardiovascular stress test 12/2020 ef 60, no ischemia PAST SURGICAL HISTORY Procedure Laterality Date TUBAL LIGATION HX ALLERGIES Prednisone MEDICATIONS Current Outpatient Medications Medication Sig enalapril (VASOTEC) 20 mg tablet Take 1 tablet by mouth once daily. ergocalciferol 50,000 unit capsule (VITAMIN D2, DRISDOL) Take 1 capsule by mouth one time a week. Fenofibrate (LOFIBRA) 160 mg tablet Take 1 tablet by mouth once daily. furosemide (LASIX) 20 mg tablet Take 1 tablet by mouth once daily. levothyroxine (SYNTHROID) 175 mcg tablet Take 1 tablet by mouth once daily. Take on empty stomach. For Thyroid. metoprolol tartrate, short acting, (LOPRESSOR) 25 mg tablet Take 1 tablet by mouth two times a day. sertraline (ZOLOFT) 100 mg tablet Take 1 tablet by mouth once daily. apixaban (ELIQUIS) 5 mg tab(s) Take 1 tablet by mouth two times a day. red beet root-sour raines ext 250-0.5 mg chew Take 1 tablet by mouth once daily. nystatin (MYCOSTATIN) cream Apply to affected area two times a day. vit A,C,A-Cmhf-Ivrcuw (PRESERVISION AREDS) 2,148 mcg-113 mg-45 mg-17.4mg tab Take 1 tablet by mouth daily with breakfast. insulin NPH injection (HumuLIN N,NovoLIN N) 24 units in the am and 24 units in the pm. aspirin, enteric coated (ASPIRIN, ENTERIC COATED) 325 mg EC tablet Take 1 tablet by mouth once daily. Take with food. multivitamin with minerals (MULTIPLE VITAMINS 55 PLUS ORAL) Take 1 capsule by mouth once daily. Ascorbic Acid (VITAMIN C) 100 mg tablet ZINC ORAL Take by mouth. No current facility-administere d medications for this visit. FAMILY HISTORY Problem Relation Age of Onset No Known Problems Mother No Known Problems Father No Known Problems Maternal Grandmother No Known Problems Maternal Grandfather No Known Problems Paternal Grandmother No Known Problems Paternal Grandfather Social History Tobacco Use Smoking status: Never Smokeless tobacco: Never Vaping Use Vaping status: Never Used Substance Use Topics Alcohol use: Never Drug use: Never REVIEW OF SYSTEMS GENERAL: No weight loss, malaise or fevers/chills HEENT: Negative for frequent or significant headaches, No changes in hearing or vision. NECK: Negative for lumps, goiter, pain and significant neck swelling RESPIRATORY: + SOB CARDIOVASCULAR: Negative for chest pain, leg swelling, orthopnea, or palpitations GI: No nausea, vomiting, or diarrhea/constipatio n. No hematochezia/melena. No heartburn or reflux symptoms. : No history of dysuria, frequency or incontinence MUSCULOSKELETAL: Negative for joint pain or swelling. SKIN: Negative for lesions, rash, and itching ENDOCRINE: Negative for cold or heat intolerance, polyuria, polydipsia and goiter NEURO: No history of headaches, syncope, paralysis, seizures or tremors MOOD: Negative for depression, anxiety, or suicidal ideation. EXAM: BP 138/90 (BP Site: Right Arm, BP Position: Sitting) Pulse 76 Resp 18 Wt 89.9 kg (198 lb 3.1 oz) SpO2 96% BMI 32.98 kg/m? PHYSICAL EXAM: General Appearance: Well appearing, alert, in no acute distress, well-hydrated, well nourished.. Skin: Skin color, texture, tu (more content not included)... Normal [facility] 02-12-2024 [facility] Telephone (FAMPWS) TARIK BAKER ([id number]) 1945 F [place] Date Time Provider Department 02/12/24 ZAC LINTON During your visit today, we recorded the following information about you: Melissa Castro LPN 02/12/2024 10:19 AM Signed Deepa from [facility] Home Health calling with OT plan of care, 1 visit weekly for 1 week, then 2 visits weekly for 1 week, then 1 visit weekly for 3 weeks. Working on transfers, fall prevention, home exercise program and ADL's. No need to return call. Zac Linton MD 02/13/2024 11:10 AM Signed Laverne Linton MD Allergies As of Date: 02/12/2024 Noted Allergy Reaction PREDNISONE 09/06/2015 14 - Other: See Comments Comments: Sugar went over 900 Date Reviewed: 01/02/2024 Reviewed by: Kary Farr MA - Fully Assessed Reason for Visit: OT plan of care [Other] Prescriptions as of 02/13/2024 - red beet root-sour raines ext 250-0.5 mg chew Take 1 tablet by mouth once daily. - nystatin (MYCOSTATIN) cream Apply to affected area two times a day. - vit A,C,K-Hbeg-Qsdact (PRESERVISION AREDS) 2,148 mcg-113 mg-45 mg-17.4mg tab Take 1 tablet by mouth daily with breakfast. - sertraline (ZOLOFT) 100 mg tablet Take 1 tablet by mouth once daily. - furosemide (LASIX) 20 mg tablet Take 1 tablet by mouth once daily. - metoprolol tartrate, short acting, (LOPRESSOR) 25 mg tablet Take 1 tablet by mouth two times a day. - ergocalciferol 50,000 unit capsule (VITAMIN D2, DRISDOL) Take 1 capsule by mouth one time a week. - levothyroxine (SYNTHROID) 175 mcg tablet Take 1 tablet by mouth once daily. Take on empty stomach. For Thyroid. - enalapril (VASOTEC) 20 mg tablet Take 1 tablet by mouth once daily. - Fenofibrate (LOFIBRA) 160 mg tablet Take 1 tablet by mouth once daily. - insulin NPH injection (HumuLIN N,NovoLIN N) 24 units in the am and 24 units in the pm. - aspirin, enteric coated (ASPIRIN, ENTERIC COATED) 325 mg EC tablet Take 1 tablet by mouth once daily. Take with food. - multivitamin with minerals (MULTIPLE VITAMINS 55 PLUS ORAL) Take 1 capsule by mouth once daily. - Ascorbic Acid (VITAMIN C) 100 mg tablet - ZINC ORAL Take by mouth. Problem List As Of Date 02/12/2024 Noted Resolved History of temporal arteritis [Z87.39] 09/06/2015 Type 2 diabetes mellitus with hyperglycemia, wi*09/06/2015 Diabetes (HCC) [E11.9] Hypothyroidism, acquired [E03.9] 06/21/2020 Hypertriglyceridemia [E78.1] 06/21/2020 Obesity, Class I, BMI 30-34.9 [E66.811] 06/21/2020 Vitamin D deficiency [E55.9] 06/21/2020 Primary hypertension [I10] 12/12/2020 History of non-ST elevation myocardial infarcti*04/10/2022 Chronic kidney disease, stage 3a (HCC) [N18.31] 11/08/2022 Encounter Status:Closed by ZAC LINTON on 02/13/24 [facility] 02-07-2024 [facility] Telephone (FAMPWS) TARIK BAKER ([id number]) 1945 F Date Time Provider Department 02/07/24 ZAC LINTON During your visit today, we recorded the following information about you: Guillermina Ordonez, BRITTON 02/07/2024 11:25 AM Addendum Ledy with [facility] Nursing calling with the following: Nursing plan of care will be: 1 time per week for 1 week then 2 times per week for 3 weeks for disease and medication mgmt, if provider agreeable. Asking for orders for PT and OT Home Health. Ledy states patient has recurrent falls and difficulty sleeping in her bed and feels therapy will benefit her. Reports 3 medications that patient is taking that is not listed on pt's current med list: Preservision eye supplement, beet root (for blood pressure mgmt) and Nystatin topical cream as needed to abdominal folds. Please call Ledy back with approval of orders at [phone]. BRITTON Mayo Mark D, MD 02/07/2024 4:01 PM Signed OK for HH Nursing plan of care as outlined OK for orders for PT and OT OK to add those three meds to her med list MD Kunal Sykes Kathryn, MA 02/07/2024 4:12 PM Signed Detailed message left on Ledy's identified and confidential vm. VIN Del Real Kathryn, MA 02/07/2024 4:15 PM Signed Addended by: CINTHYA SYED on: 02/07/2024 04:15 PM Modules accepted: Orders Allergies As of Date: 02/07/2024 Noted Allergy Reaction PREDNISONE 09/06/2015 14 - Other: See Comments Comments: Sugar went over 900 Date Reviewed: 01/02/2024 Reviewed by: Kary Farr MA - Fully Assessed Reason for Visit: Home Health Request/Update [Other] Prescriptions as of 02/07/2024 - red beet root-sour raines ext 250-0.5 mg chew Take 1 tablet by mouth once daily. - nystatin (MYCOSTATIN) cream Apply to affected area two times a day. - vit A,C,G-Xieu-Vugpbs (PRESERVISION AREDS) 2,148 mcg-113 mg-45 mg-17.4mg tab Take 1 tablet by mouth daily with breakfast. - sertraline (ZOLOFT) 100 mg tablet Take 1 tablet by mouth once daily. - furosemide (LASIX) 20 mg tablet Take 1 tablet by mouth once daily. - metoprolol tartrate, short acting, (LOPRESSOR) 25 mg tablet Take 1 tablet by mouth two times a day. - ergocalciferol 50,000 unit capsule (VITAMIN D2, DRISDOL) Take 1 capsule by mouth one time a week. - levothyroxine (SYNTHROID) 175 mcg tablet Take 1 tablet by mouth once daily. Take on empty stomach. For Thyroid. - enalapril (VASOTEC) 20 mg tablet Take 1 tablet by mouth once daily. - Fenofibrate (LOFIBRA) 160 mg tablet Take 1 tablet by mouth once daily. - insulin NPH injection (HumuLIN N,NovoLIN N) 24 units in the am and 24 units in the pm. - aspirin, enteric coated (ASPIRIN, ENTERIC COATED) 325 mg EC tablet Take 1 tablet by mouth once daily. Take with food. - multivitamin with minerals (MULTIPLE VITAMINS 55 PLUS ORAL) Take 1 capsule by mouth once daily. - Ascorbic Acid (VITAMIN C) 100 mg tablet - ZINC ORAL Take by mouth. Problem List As Of Date 02/07/2024 Noted Resolved History of temporal arteritis [Z87.39] 09/06/2015 Type 2 diabetes mellitus with hyperglycemia, wi*09/06/2015 Diabetes (HCC) [E11.9] Hypothyroidism, acquired [E03.9] 06/21/2020 Hypertriglyceridemia [E78.1] 06/21/2020 Obesity, Class I, BMI 30-34.9 [E66.811] 06/21/2020 Vitamin D deficiency [E55.9] 06/21/2020 Primary hypertension [I10] 12/12/2020 History of non-ST elevation myocardial infarcti*04/10/2022 Chronic kidney disease, stage 3a (HCC) [N18.31] 11/08/2022 Encounter Status:Closed by CINTHYA SYED on 02/07/24 Normal [facility] Bedside Glucoseon 02-06-2024 FINGERSTICK GLU 257 mg/dL High 74-106 [facility] Comment on above: Result Comment: GABRIELA CLIFTON OF PATIENT CARE PER NURSING PROTOCOL Performed By: #### L 666.0311 #### [facility] [address] [place], [address] FINGERSTICK GLU 164 mg/dL High 74-106 [facility] Comment on above: Result Comment: GABRIELA CLIFTON OF PATIENT CARE PER NURSING PROTOCOL Performed By: #### L 867.358 #### [facility] [address] [place], [address] Discharge Instructionon Discharge Instruction [facility] Medical Records Department [address] [place] [address] Instructions for Home/Discharge Instructions 02/06/24 1108 MR#: [id number] Acct: [id number] Name: TARIK BAKER Rep #: [id number] : 1945 78 From: Min Carranza MD PCP: Dr. Zac Linton MD Status:ADM IN Discharge Instructions Follow Up Care Test Results: Test results from this visit will be discussed in further detail at your follow-up appointment, if applicable. Discharge Plan Admission Admit Date/Time: 02/04/24 13:59 Attending Provider: Min Carranza Primary Care Provider: Zac Lintno Consulting Providers: Gerry Berumen; Soto Ross; Sherman Anne; Rik Sumner; Nando Matta; Denton Diallo; Sade Souza; Eulogio Gaffney; Isaias Lainez; Kellee Johnson; Lizbet Ko; Darryn Amin; Omar Keller; Garland Barclay; Chance Weber; Indio Uriarte; Say Emanuel; Noah Singh; Nishant Tijerina Discharge Orders/Prescriptions Prescriptions: New Eliquis DVT-PE Treat 30D Start 5 mg (74 tabs) tablets,dose pack 5 mg PO BID Qty: 74 2RF Rx Instructions: 10 mg (2 tabs) twice daily for 7 days till 02/12/2024 and then twice daily to continue Continued levothyroxine [Synthroid] 175 mcg tablet 175 mcg PO QDAY enalapril maleate 20 mg tablet 20 mg PO QDAY multivitamin Tablet 1 tab PO QAM ascorbic acid (vitamin C) 100 mg tablet 100 mg PO QDAY sertraline 100 mg tablet 100 mg PO QDAY fenofibrate 160 mg tablet 160 mg PO DAILY ergocalciferol (vitamin D2) 1,250 mcg (50,000 unit) capsule 1,250 mcg PO MO Patient Comments: TAKE 1 CAPSULE EVERY WEEK Novolin N NPH U-100 Insulin 100 unit/mL suspension 25 unit subcut BID zinc gluconate 100 mg tablet 100 mg PO DAILY furosemide 20 mg tablet 20 mg PO DAILY metoprolol tartrate 25 mg tablet 25 mg PO BID Held aspirin 325 mg tablet 325 mg PO QDAY Hold Instructions: Hold it while patient is on Eliquis Referrals / Follow Up: Sherman Anne DO [Med Staff - Active Staff] - Within 1 Month (Follow-up for bilateral PE) Noah Singh MD [Med Staff - Active Staff] - Within 1 Month Zac Linton MD [Primary Care Provider] - Within 2 Weeks Precious Kaplan MD [Med Staff - Active Staff] - See Referral Note (Follow-up after 6 months after completion of Eliquis) Disposition Disposition (needs filled in before D/C Order can be placed): Home, Self Care 02/06/24 1320 Min Carranza MD CC: Dr. Soto Ross MD; Dr. Nishant Tijerina DO; Dr. Gerry Berumen MD; Dr. Rik Sumner MD; Dr. Sherman Anne DO; Dr. Nando Matta MD; Dr. Noah Singh MD; Dr. Denton Diallo MD; Dr. Eulogio Gaffney MD; Dr. Isaias Lainez MD; Dr. Kellee Johnson MD; Dr. Lizbet Ko MD; Dr. Zac Linton MD; Dr. Omar Keller MD; Dr. Darryn Amin MD; Dr. Garland Barclay MD; Dr. Chance Weber MD; Dr. Indio Uriarte MD; Dr. Say Emanuel MD; Dr. Krysten Souza MD Signed Normal [facility] Partial Thromboplast Timeon 02-06-2024 aPTT Coag (Bld) [Time] 27.7 s Normal 24.1-36.2 [facility] Comment on above: Performed By: #### L [id number] #### [facility] [address] [place], [address] aPTT Coag (Bld) [Time] 54.2 s High 24.1-36.2 [facility] Comment on above: Performed By: #### L 300.7380 #### [facility] [address] [place], [address] 12 Lead EKGon 02-05-2024 12 Lead EKG [facility] [address] [place] [address] 12 Lead EKG 02/05/24 0533 MR#: [id number] Acct: [id number] Name: TARIK BAKER Rep #: [id number] : 1945 78 From: Cade Mendez MD Attending Dr: Dr. Min Carranza MD Status: ADM IN Ordering Dr: Ariadna Preciado Date: 02/05/24 Location: [facility] Sex: F C Admitted: 02/04/24 Test Reason : AM EKG Blood Pressure : / mmHG Vent. Rate : 085 BPM Atrial Rate : 085 BPM P-R Int : 148 ms QRS Dur : 142 ms QT Int : 460 ms P-R-T Axes : 062 -50 -20 degrees QTc Int : 547 ms Normal sinus rhythm Left axis deviation Non-specific intra-ventricular conduction block of the RBBB type Minimal voltage criteria for LVH, may be normal variant ( Avni product ) T wave abnormality, consider anterior ischemia Abnormal ECG Confirmed by CADE MENDEZ MD ([id number]), senior technical editor JOCY HINKLE ([id number]) on 02/06/2024 1:26:06 PM Referred By: Confirmed By:CADE MENDEZ MD 02/06/24 1326 Date Cade Mendez MD CC: YADI Kline; Dr. Zac Linton MD; Dr. Min Carranza MD Signed Normal [facility] Basic Metabolic Profile (BMP )on 02-05-2024 BUN/CRE 29.2 RATIO High 02-22 [facility] Comment on above: Performed By: #### L 500.2500, L100.0500 #### [facility] [address] [place], [address] CA,Total 9.4 mg/dL Normal 8.5-10.1 [facility] Comment on above: Performed By: #### L 500.2500, L100.0500 #### [facility] [address] [place], [address] Chloride [Moles/Vol] 110 mmol/L High 98-107 [facility] Comment on above: Performed By: #### L 500.2500, L100.0500 #### [facility] [address] [place], [address] CO2 [Moles/Vol] 25.0 mmol/L Normal 21.0-32.0 [facility] Comment on above: Performed By: #### L 500.2500, L100.0500 #### [facility] [address] [place], [address] Creatinine [Mass/Vol] 1.13 mg/dL High 0.55-1.02 [facility] Comment on above: Result Comment: The validity of the calculated GFR GFRAA in patients over 70 years has not been determined. Clinical correlation is essential. Performed By: #### L 500.2500, L100.0500 #### [facility] [address] [place], [address] ECRCL 46.02 ml/min Normal [facility] Comment on above: Performed By: #### L 500.2500, L100.0500 #### [facility] [address] [place], [address] EST GFR - AA 60 mL/min Normal >60 [facility] Comment on above: Result Comment: Afri can Citizen [place] GFR Calc Performed By: #### L 500.2500, L100.0500 #### [facility] [address] [place], [address] GAP 4 Low 5-15 [facility] Comment on above: Performed By: #### L 500.2500, L100.0500 #### [facility] [address] [place], [address] GFR/1.73 sq M.predicted among non-blacks MDRD (S/P/Bld) [Vol rate/Area] 50 mL/min/{1.73_m2} Low >60 [facility] Comment on above: Result Comment: Non- GFR Calc Performed By: #### L 500.2500, L100.0500 #### [facility] [address] [place], [address] Glucose [Mass/Vol] 87 mg/dL Normal 74-106 [facility] Comment on above: Performed By: #### L 500.2500, L100.0500 #### [facility] [address] [place], [address] Potassium [Moles/Vol] 4.0 mmol/L Normal 3.5-5.1 [facility] Comment on above: Performed By: #### L 500.2500, L100.0500 #### [facility] [address] [place], [address] Sodium [Moles/Vol] 139 mmol/L Normal 136-145 [facility] Comment on above: Performed By: #### L 500.2500, L100.0500 #### [facility] [address] [place], [address] Urea nitrogen [Mass/Vol] 33 mg/dL High 7-18 [facility] Comment on above: Performed By: #### L 500.2500, L100.0500 #### [facility] [address] [place], [address] Bedside Glucoseon 02-05-2024 FINGERSTICK GLU 178 mg/dL High 74-106 [facility] Comment on above: Result Comment: GABRIELA CLIFTON OF PATIENT CARE PER NURSING PROTOCOL Performed By: #### L 300.4310 #### [facility] [address] [place], [address] FINGERSTICK GLU 122 mg/dL High 74-106 [facility] Comment on above: Result Comment: GABRIELA GEMENT OF PATIENT CARE PER NURSING PROTOCOL Performed By: #### L 501.080 ####[facility] [address] [place], [place], [address] FINGERSTICK GLU 202 mg/dL High 74-106 [facility] Comment on above: Result Comment: GABRIELA GEMENT OF PATIENT CARE PER NURSING PROTOCOL Performed By: #### L 501.9985 #### [facility] [address] [place], [address] FINGERSTICK GLU 88 mg/dL Normal 74-106 [facility] Comment on above: Result Comment: GABRIELA GEMENT OF PATIENT CARE PER NURSING PROTOCOL Performed By: #### L 300.4310 #### [facility] [address] [place], [address] FINGERSTICK GLU 229 mg/dL High 74-106 [facility] Comment on above: Result Comment: GABRIELA GEMENT OF PATIENT CARE PER NURSING PROTOCOL Performed By: #### L 501.080 ####[facility] [address] [place], [address] CBC-Complete Blood Cnt No Di ffon 02-05-2024 Erythrocyte distribution width (RBC) [Ratio] 13.2 % Normal 11.6-14.6 [facility] Comment on above: Performed By: #### L 500.2500, L100.0500 #### [facility] [address] [place], [address] Hematocrit (Bld) [Volume fraction] 36.9 % Low 37-47 [facility] Comment on above: Performed By: #### L 500.2500, L100.0500 #### [facility] [address] [place], [address] Hemoglobin (Bld) [Mass/Vol] 11.9 g/dL Low 12.0-15.0 [facility] Comment on above: Performed By: #### L 500.2500, L100.0500 #### [facility] [address] [place], [address] MCH (RBC) [Entitic mass] 31.2 pg Normal 27.0-32.0 [facility] Comment on above: Performed By: #### L 500.2500, L100.0500 #### [facility] [address] [place], [address] MCHC (RBC) [Mass/Vol] 32.2 g/dL Normal 32-36 [facility] Comment on above: Performed By: #### L 500.2500, L100.0500 #### [facility] [address] [place], [address] MCV (RBC) [Entitic vol] 96.9 fL Normal 81-99 [facility] Comment on above: Performed By: #### L 500.2500, L100.0500 #### [facility] [address] [place], [address] Platelet mean volume (Bld) [Entitic vol] 10.7 fL Normal 6.2-12.0 [facility] Comment on above: Performed By: #### L 500.2500, L100.0500 #### [facility] [address] [place], [address] Platelets (Bld) [#/Vol] 255 10*3/uL Normal 150-450 [facility] Comment on above: Performed By: #### L 500.2500, L100.0500 #### [facility] [address] [place], [address] RBC (Bld) [#/Vol] 3.81 10*6/uL Low 4.2-5.4 [facility] Comment on above: Performed By: #### L 500.2500, L100.0500 #### [facility] [address] [place], [address] RDW SD 46.9 fl High 35.1-43.9 [facility] Comment on above: Performed By: #### L 500.2500, L100.0500 #### [facility] [address] [place], [address] WBC (Bld) [#/Vol] 5.6 10*3/uL Normal 4.4-11.0 [facility] Comment on above: Performed By: #### L 500.2500, L100.0500 #### [facility] [address] [place], [address] [facility]NP[facility]-05-20[facility] CEMTARIK Shahid ([id number]) 1945 F Date Time Provider Department 02/05/24 ZAC LINTON During your visit today, we recorded the following information about you: Rachele Alan LPN 02/05/2024 1:54 PM Signed Padmini calling from [facility], patient is being discharged tomorrow with home O2. They would like to see patient for a couple of weeks. Asking if PCP agrees and will follow. Please advise. Zac Linton MD 02/06/2024 8:40 AM Signed I agree and will follow MD Kunal Sykes Kathryn, MA 02/06/2024 11:48 AM Signed Padmini notified and voiced understanding. Cinthya Syed MA Allergies As of Date: 02/05/2024 Noted Allergy Reaction PREDNISONE 09/06/2015 14 - Other: See Comments Comments: Sugar went over 900 Date Reviewed: 01/02/2024 Reviewed by: Kary Farr MA - Fully Assessed Prescriptions as of 02/06/2024 - sertraline (ZOLOFT) 100 mg tablet Take 1 tablet by mouth once daily. - furosemide (LASIX) 20 mg tablet Take 1 tablet by mouth once daily. - metoprolol tartrate, short acting, (LOPRESSOR) 25 mg tablet Take 1 tablet by mouth two times a day. - ergocalciferol 50,000 unit capsule (VITAMIN D2, DRISDOL) Take 1 capsule by mouth one time a week. - levothyroxine (SYNTHROID) 175 mcg tablet Take 1 tablet by mouth once daily. Take on empty stomach. For Thyroid. - enalapril (VASOTEC) 20 mg tablet Take 1 tablet by mouth once daily. - Fenofibrate (LOFIBRA) 160 mg tablet Take 1 tablet by mouth once daily. - insulin NPH injection (HumuLIN N,NovoLIN N) 24 units in the am and 24 units in the pm. - aspirin, enteric coated (ASPIRIN, ENTERIC COATED) 325 mg EC tablet Take 1 tablet by mouth once daily. Take with food. - multivitamin with minerals (MULTIPLE VITAMINS 55 PLUS ORAL) Take 1 capsule by mouth once daily. - Ascorbic Acid (VITAMIN C) 100 mg tablet - ZINC ORAL Take by mouth. Problem List As Of Date 02/05/2024 Noted Resolved History of temporal arteritis [Z87.39] 09/06/2015 Type 2 diabetes mellitus with hyperglycemia, wi*09/06/2015 Diabetes (HCC) [E11.9] Hypothyroidism, acquired [E03.9] 06/21/2020 Hypertriglyceridemia [E78.1] 06/21/2020 Obesity, Class I, BMI 30-34.9 [E66.811] 06/21/2020 Vitamin D deficiency [E55.9] 06/21/2020 Primary hypertension [I10] 12/12/2020 History of non-ST elevation myocardial infarcti*04/10/2022 Chronic kidney disease, stage 3a (HCC) [N18.31] 11/08/2022 Encounter Status:Closed by CINTHYA SYED on 02/06/24 [facility] - Intensiviston 02-05-2024 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 Zac Linton MD Status:ADM IN Location: [place] [address] Assessment Plan Assessment/Plan (1) Hypoxemia: (2) Bilateral pulmonary embolism: PLAN: Plan RECOMMENDATIONS: 1. Supplemental oxygen to maintain saturations at or above 90%. 2. Awaiting results of echocardiogram. 3. Continue weight-based heparin infusion. Okay to transition to either Eliquis or Xarelto from my perspective. 4. Perform walking oximetry study prior to consideration for discharge home. 5. Will sign off at this time. Please call with any additional questions. IMPRESSIONS: 1. Shortness of breath and hypoxemia The patient presented to the hospital with shortness of breath and hypoxemia in the setting of bilateral pulmonary emboli. There is no evidence of biochemical strain with normal BNP and troponin. The patient is hemodynamically stable on minimal supplemental O2. I do not see an urgent indication to proceed with thrombectomy. Echocardiogram is currently pending. Given the unprovoked nature of the patient's blood clots coupled with her sedentary lifestyle, she would likely be best served by lifelong anticoagulation, given the extensive nature of her blood clots. Recommend performing walking oximetry study prior to consideration for discharge home. I do anticipate that the patient will have a home-going supplemental oxygen requirement in the short-term. From my perspective, the patient can be transitioned to either Eliquis or Xarelto. 2. Obesity/chronic kidney disease/anemia/diabe leobardo mellitus/paroxysmal atrial fibrillation/hypothy roidism Complicates care, management, recovery and prognosis. Continue home medications as indicated. This note was generated with Pro Stream +ation software. It may contain incorrect words, spelling, and punctuation that were not noted in checking the note before signing. HPI Consult Data Date of Consult: 02/05/24 HPI Narrative Reason for Consultation: Pulmonary emboli HPI Narrative: The patient is a 78-year-old female, with a history as outlined below, who presented to the emergency department via EMS on February 03 with reported shortness of breath. The patient denied any prior VTE history. The patient denied any recent prolonged travel. She denied any personal or family history of any hypercoagulable conditions. She has never been diagnosed with cancer. The patient readily admits that she lives a sedentary lifestyle. She denied any pre-existing lung conditions. On presentation to the emergency department, the patient was afebrile and hemodynamically stable. Laboratory evaluation revealed a normal white blood cell count. Hemoglobin was stable. Chemistry profile was notable for a creatinine of 1.3. Lactate was within normal limits. Troponin was normal at 42 with a BNP of 104. CTA chest demonstrated bilateral PE without saddle involvement. The patient was placed on a weight-based heparin infusion and admitted to the progressive care unit for further management. [facility] Medical History (Updated 02/04/24 @ 16:02 by Moni Harris) Depression Non-smoker Pulmonary embolism Myocardial infarct TIA (transient ischemic attack) Atrial fibrillation Hypercholesteremia Diabetes Hypothyroid Home Medications ???Medication ???Instructions ???Recorded ???Last Taken ???Type fenofibrate 160 mg tablet 160 mg PO DAILY 12/18/20 02/04/24 History ascorbic acid (vitamin C) 100 mg 100 mg PO QDAY 01/24/24 02/04/24 History tablet aspirin 325 mg tablet 325 mg PO QDAY 01/24/24 02/04/24 History enalapril maleate 20 mg tablet 20 mg PO QDAY 01/24/24 02/04/24 History ergocalciferol (vitamin D2) 1,250 1,250 mcg PO MO 01/24/24 02/03/24 History mcg (50,000 unit) capsule levothyroxine 175 mcg tablet 175 mcg PO QDAY 01/24/24 02/04/24 History (Synthroid) multivitamin 1 tab PO QAM 01/24/24 02/04/24 History sertraline 100 mg tablet 100 mg PO QDAY 01/24/24 02/04/24 History furosemide 20 mg tablet 20 mg PO DAILY 02/04/24 02/04/24 History insulin NPH isoph U-100 human 100 25 unit subcut BID 02/04/24 02/04/24 History unit/mL subcutaneous suspension (Novolin N NPH U-100 Insulin isophane) metoprolol tartrate 25 mg tablet 25 mg PO BID 02/04/24 02/04/24 History zinc gluconate 100 mg tablet 100 mg PO DAILY 02/04/24 02/04/24 History Allergy/AdvReac Type Severity Reaction Status Date / Time prednisone Allergy Mild unknown Verified 02/04/24 11:08 Surgical History H/O tubal ligation Social History Smoking Status: Never (more content not included)... Normal [facility] Hemoglobin A1con 02-05-2024 HbA1c (Bld) [Mass fraction] 7.1 % High 3.8-5.6 [facility] Comment on above: Result Comment: Norm al < 5.7 % Prediabetic 5.7 - 6.4 % Diabetic >or= 6.5 % Please note range changes. Performed By: #### L 501.9985 #### [facility] [address] [place], [place], [address] Partial Thromboplast Timeon 02-05-2024 aPTT Coag (Bld) [Time] 60.8 s High 24.1-36.2 [facility] Comment on above: Order Comment: Comme nts: time sensitive hep gtt Performed By: #### L 300.4310 ####[facility] [address] [place], [address] aPTT Coag (Bld) [Time] 65.2 s High 24.1-36.2 [facility] Comment on above: Order Comment: Comme nts: Heparin Gtt Performed By: #### L 501.9985 #### [facility] [address] [place], [address] aPTT Coag (Bld) [Time] 90.4 s Invalid Interpretation Code 24.1-36.2 [facility] Comment on above: Order Comment: Comme nts: heparin gtt Result Comment: CRIT ICAL VALUE CALLED TO AFLICKINGER 02/05/24 0623 Jocy Yeung. RESULTS READ BACK BY SAME. Performed By: #### L 239.3554 #### [facility] [address] [place], [address] 12 Lead EKGon 02-04-2024 12 Lead EKG [facility] Services [address] [place] [address] 12 Lead EKG 02/04/24 1120 MR#: [id number] Acct: [id number] Name: TARIK BAKER Rep #: [id number] : 1945 78 From: Cade Mendez MD Attending Dr: Dr. Min Carranza MD Status: DIS IN Ordering Dr: Casimiro Parikh MD Date: 02/04/24 Location: [facility] Sex: F C Admitted: 02/04/24 Test Reason : SOB/PALP Blood Pressure : / mmHG Vent. Rate : 094 BPM Atrial Rate : 094 BPM P-R Int : 154 ms QRS Dur : 136 ms QT Int : 420 ms P-R-T Axes : 057 -59 012 degrees QTc Int : 525 ms Normal sinus rhythm Possible Left atrial enlargement Right bundle branch block Left anterior fascicular block Bifascicular block Abnormal ECG Confirmed by IGNACIO GARCÍA, CADE ([id number]), senior technical editor MAYO FAUSTIN ([id number]) on 02/07/2024 6:20:16 AM Referred By: ES/UG Confirmed By:CADE MENDEZ MD 02/07/24 0620 Date Cade Mendez MD CC: Dr. Zac Linton MD; Dr. Min Carranza MD; Dr. Casimiro Parikh MD Signed Normal [facility] BNP,B-Type NATRIURETIC PEPTI Miguel 02-04-2024 Natriuretic peptide B (Bld) [Mass/Vol] 104.9 pg/mL High 0-100 [facility] Comment on above: Performed By: #### L 501.9985 #### [facility] [address] [place], [address] Bedside Glucoseon 02-04-2024 FINGERSTICK GLU 117 mg/dL High 74-106 [facility] Comment on above: Result Comment: GABRIELA CLIFTON OF PATIENT CARE PER NURSING PROTOCOL Performed By: #### L 501.9985 #### [facility] [address] [place], [address] CBC W/Diff, Automatedon 10 Absolute Lymph 0.74 X10 3/uL Low 0.83-4.51 [facility] Comment on above: Performed By: #### L 501.9985 #### [facility] [address] [place], [address] Absolute Neut 5.0 X10 3/uL Normal 2.0-7.7 [facility] Comment on above: Performed By: #### L 501.9985 #### [facility] [address] [place], [address] Basophils/100 WBC (Bld) 0.3 % Normal 0-1 [facility] Comment on above: Performed By: #### L 501.9985 #### [facility] [address] [place], [address] Eosinophils/100 WBC (Bld) 1.6 % Normal 0-5 [facility] Comment on above: Performed By: #### L 501.9985 #### [facility] [address] [place], [address] Erythrocyte distribution width (RBC) [Ratio] 13.3 % Normal 11.6-14.6 [facility] Comment on above: Performed By: #### L 501.9985 #### [facility] [address] [place], [address] Hematocrit (Bld) [Volume fraction] 36.9 % Low 37-47 [facility] Comment on above: Performed By: #### L 501.9985 #### [facility] [address] [place], [address] Hemoglobin (Bld) [Mass/Vol] 11.8 g/dL Low 12.0-15.0 [facility] Comment on above: Performed By: #### L 501.9985 #### [facility] [address] [place], [address] IG% 0.500 Normal 0.0-0.9 [facility] Comment on above: Result Comment: IG% - Immature Granulocytes (promyelocytes, myelocytes and metamyelocytes) > 1% indicates that a LEFT SHIFT is Present. Performed By: #### L 501.9985 #### [facility] [address] [place], [address] Lymphocytes/100 WBC (Bld) 11.5 % Low 19-41 [facility] Comment on above: Performed By: #### L 501.9985 #### [facility] [address] [place], [address] MCH (RBC) [Entitic mass] 31.1 pg Normal 27.0-32.0 [facility] Comment on above: Performed By: #### L 501.85 #### [facility] [address] [place], [address] MCHC (RBC) [Mass/Vol] 32.0 g/dL Normal 32-36 [facility] Comment on above: Performed By: #### L 501.9985 #### [facility] [address] [place], [address] MCV (RBC) [Entitic vol] 97.1 fL Normal 81-99 [facility] Comment on above: Performed By: #### L 501.9985 #### [facility] [address] [place], [address] Monocytes/100 WBC (Bld) 8.1 % Normal 0-10 [facility] Comment on above: Performed By: #### L 501.9985 #### [facility] [address] [place], [address] Neutrophils/100 WBC (Bld) 78.0 % High 47-70 [facility] Comment on above: Performed By: #### L 501.9985 #### [facility] [address] [place], [address] Nucleated RBC (Bld) [#/Vol] 0 10*3/uL Normal 0-5 [facility] Comment on above: Performed By: #### L 501.9985 #### [facility] [address] [place], [address] Platelet mean volume (Bld) [Entitic vol] 11.1 fL Normal 6.2-12.0 [facility] Comment on above: Performed By: #### L 501.9985 #### [facility] [address] [place], [address] Platelets (Bld) [#/Vol] 251 10*3/uL Normal 150-450 [facility] Comment on above: Performed By: #### L 501.9985 #### [facility] [address] [place], [address] RBC (Bld) [#/Vol] 3.80 10*6/uL Low 4.2-5.4 [facility] Comment on above: Performed By: #### L 501.9985 #### [facility] [address] [place], [address] RDW SD 47.3 fl High 35.1-43.9 [facility] Comment on above: Performed By: #### L 501.9985 #### [facility] [address] [place], [address] WBC (Bld) [#/Vol] 6.4 10*3/uL Normal 4.4-11.0 [facility] Comment on above: Performed By: #### L 501.9985 #### [facility] [address] [place], [place], [address] CTA Chest W/WO Contraston CTA Chest W/WO Contrast [facility] Imaging Services [address] [place], [place] [address] CTA Chest W/WO Contrast MR#: [id number] Acct: [id number] Name: TARIK BAKER Rep #: [id number] : 1945 F 78 From: Dolly gautam MD PCP: Dr. Zac Linton MD Status: REG ER Study: CTA Chest W/WO Contrast Date of Exam: 02/04/24 Exam# [id number] Ordering Dr: aCsimiro Parikh MD ADDENDUM by Dr. Dolly Baker MD on 02/04/24 at 1359 [id number] HISTORY: Tachycardia, hypoxia evaluate for PE. TECHNIQUE: CT angiogram of the chest was performed after the intravenous administration of 100mL Isovue-370. Post-processing of the angiographic images was performed with multiplanar reformation and 3D reconstruction. Individualized dose optimization techniques were used for this CT. 1181 images. COMPARISON: XR same day, CTA 12/18/2020. FINDINGS: CENTRAL AIRWAYS: Patent. LUNGS: Chronic mild scarring in the right lower lobe medially. PLEURA: No pneumothorax or significant pleural effusion. HEART/PERICARDIUM: Heart within normal limits in size with mild right chamber enlargement. No pericardial effusion. PULMONARY ARTERIES: Large filling defects in the distal right and left main pulmonary arteries with extension into all lobar, multiple segmental, and subsegmental branches. AORTA/VESSELS: No thoracic aortic aneurysm or dissection flap. MEDIASTINUM/SELENE: No pathologically enlarged lymph nodes. OSSEOUS STRUCTURES: Degenerative change. Chronic mild T11 compression fracture. UPPER ABDOMEN: Unremarkable. 02/04/24 1359 Date cc: Dr. Zac Linton MD; Dr. Casimiro Parikh MD * Signed ADDENDUM by Dr. Dolly Baker MD on 02/04/[address]/CTA Chest W/WO Contrast IMPRESSION: Extensive bilateral pulmonary emboli with concern for right heart strain. N.B. : The above Results were Read Back by Dolly Baker MD to Casimiro Parikh MD, and understanding confirmed on 02/04/2024 14:04:17 (ET). Electronically Signed: Dolly Baker MD at 13:59 EDT , 02/04/24 1411 Date cc: Dr. Zac Linton MD; Dr. Casimiro Parikh MD * Signed We are attempting to reach an attending provider to discuss findings. An addendum with communication details will be sent when the communication is complete. [id number] HISTORY: Tachycardia, hypoxia evaluate for PE. TECHNIQUE: CT angiogram of the chest was performed after the intravenous administration of 100mL Isovue-370. Post-processing of the angiographic images was performed with multiplanar reformation and 3D reconstruction. Individualized dose optimization techniques were used for this CT. 1181 images. COMPARISON: XR same day, CTA 12/18/2020. FINDINGS: CENTRAL AIRWAYS: Patent. LUNGS: Chronic mild scarring in the right lower lobe medially. PLEURA: No pneumothorax or significant pleural effusion. HEART/PERICARDIUM: Heart within normal limits in size with mild right chamber enlargement. No pericardial effusion. PULMONARY ARTERIES: Large filling defects in the distal right and left main pulmonary arteries with extension into all lobar, multiple segmental, and subsegmental branches. AORTA/VESSELS: No thoracic aortic aneurysm or dissection flap. MEDIASTINUM/SELENE: No pathologically enlarged lymph nodes. OSSEOUS STRUCTURES: Degenerative change. Chronic mild T11 compression fracture. UPPER ABDOMEN: Unremarkable. CT/CTA Chest W/WO Contrast IMPRESSION: Extensive bilateral pulmonary emboli with concern for right heart strain. Electronically Signed: Dolly Baker MD at 13:59 EDT , CC: Dr. Zac Linton MD; Dr. Casimiro Parikh MD Pretzel Cooker: Signed Normal [facility] Chest PA and Lateralon 02-03 Chest PA and Lateral [facility] Imaging Services [address] [place], [place] [address] Chest PA and Lateral MR#: [id number] Acct: [id number] Name: TARIK BAKER Rep #: [id number] : 1945 F 78 From: Dolly gautam MD PCP: Dr. Zac Linton MD Status: REG ER Study: Chest PA and Lateral Date of Exam: 02/04/24 Exam# [id number] Ordering Dr: Casimiro Parikh MD [id number] HISTORY: Congestion, shortness of breath, hypoxia. TECHNIQUE: XR Chest 2 Views. COMPARISON: 12/18/2020. FINDINGS: CARDIOMEDIASTINAL BORDERS: Cardiac silhouette within normal limits in size. Mediastinal contour unremarkable with calcification of the aortic knob. LUNGS: Radiographically clear. PLEURA: No pleural effusion or pneumothorax seen. OSSEOUS STRUCTURES: Degenerative change. 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 RAD/Chest PA and Lateral IMPRESSION: No acute cardiopulmonary process identified. Electronically Signed: Dolly Baker MD at 12:15 EDT , CC: Dr. Zac Linton MD; Dr. Casimiro Parikh MD Pretzel Cooker: Signed Normal [facility] Comprehensive Metabolic Prof ilon 02-04-2024 Albumin [Mass/Vol] 3.3 g/dL Normal 3.2-5.0 [facility] Comment on above: Order Comment: 'TROP ' Serial specimen #1, #2 or #3: 1 Performed By: #### L 501.9985 #### [facility] [address] [place], [address] Albumin/Globulin [Mass ratio] 0.7 {ratio} Low 0.9-2.4 [facility] Comment on above: Order Comment: 'TROP ' Serial specimen #1, #2 or #3: 1 Performed By: #### L 501.9985 #### [facility] [address] [place], [address] ALK P 49 U/L Normal 45-117 [facility] Comment on above: Order Comment: 'TROP ' Serial specimen #1, #2 or #3: 1 Performed By: #### L 501.9985 #### [facility] [address] [place], [address] ALT [Catalytic activity/Vol] 22 U/L Normal 13-56 [facility] Comment on above: Order Comment: 'TROP ' Serial specimen #1, #2 or #3: 1 Performed By: #### L 501.9985 #### [facility] [address] [place], [address] AST [Catalytic activity/Vol] 26 U/L Normal 15-37 [facility] Comment on above: Order Comment: 'TROP ' Serial specimen #1, #2 or #3: 1 Performed By: #### L 501.9985 #### [facility] [address] [place], [address] Bilirubin [Mass/Vol] 0.30 mg/dL Normal 0.20-1.00 [facility] Comment on above: Order Comment: 'TROP ' Serial specimen #1, #2 or #3: 1 Result Comment: For patients on eltrombopag therapy, use of Dimension [place] TBIL is not recommended. Performed By: #### L 501.9985 #### [facility] [address] [place], [address] BUN/CRE 30.0 RATIO High 10-20 [facility] Comment on above: Order Comment: 'TROP ' Serial specimen #1, #2 or #3: 1 Performed By: #### L [id number] #### [facility] [address] [place], [address] CA,Total 9.1 mg/dL Normal 8.5-10.1 [facility] Comment on above: Order Comment: 'TROP ' Serial specimen #1, #2 or #3: 1 Performed By: #### L [id number] #### [facility] [address] [place], [address] Chloride [Moles/Vol] 108 mmol/L High 98-107 [facility] Comment on above: Order Comment: 'TROP ' Serial specimen #1, #2 or #3: 1 Performed By: #### L [id number] #### [facility] [address] [place], [address] CO2 [Moles/Vol] 23.0 mmol/L Normal 21.0-32.0 [facility] Comment on above: Order Comment: 'TROP ' Serial specimen #1, #2 or #3: 1 Performed By: #### L [id number] #### [facility] [address] [place], [address] Creatinine [Mass/Vol] 1.30 mg/dL High 0.55-1.02 [facility] Comment on above: Order Comment: 'TROP ' Serial specimen #1, #2 or #3: 1 Result Comment: The validity of the calculated GFR GFRAA in patients over 70 years has not been determined. Clinical correlation is essential. Performed By: #### L [id number] #### [facility] [address] [place], [address] ECRCL 41.48 ml/min Normal [facility] Comment on above: Order Comment: 'TROP ' Serial specimen #1, #2 or #3: 1 Performed By: #### L [id number] #### [facility] [address] [place], [address] EST GFR - AA 51 mL/min Low >60 [facility] Comment on above: Order Comment: 'TROP ' Serial specimen #1, #2 or #3: 1 Result Comment: Afri can Citizen Of [place] GFR Calc Performed By: #### L [id number] #### [facility] [address] [place], [address] GAP 7 Normal 5-15 [facility] Comment on above: Order Comment: 'TROP ' Serial specimen #1, #2 or #3: 1 Performed By: #### L [id number] #### [facility] [address] [place], [address] GFR/1.73 sq M.predicted among non-blacks MDRD (S/P/Bld) [Vol rate/Area] 42 mL/min/{1.73_m2} Low >60 [facility] Comment on above: Order Comment: 'TROP ' Serial specimen #1, #2 or #3: 1 Result Comment: Non- GFR Calc Performed By: #### L [id number] #### [facility] [address] [place], [address] Globulin (S) [Mass/Vol] 4.6 g/dL High 2.2-4.2 [facility] Comment on above: Order Comment: 'TROP ' Serial specimen #1, #2 or #3: 1 Performed By: #### L [id number] #### [facility] [address] [place], [address] Glucose [Mass/Vol] 247 mg/dL High 74-106 [facility] Comment on above: Order Comment: 'TROP ' Serial specimen #1, #2 or #3: 1 Result Comment: Gluc ose result greater than or equal to 200 mg/dL suggests DIABETES MELLITUS per A.D.A. criteria. Performed By: #### L [id number] #### [facility] [address] [place], [address] Potassium [Moles/Vol] 4.8 mmol/L Normal 3.5-5.1 [facility] Comment on above: Order Comment: 'TROP ' Serial specimen #1, #2 or #3: 1 Performed By: #### L [id number] #### [facility] [address] [place], [address] Sodium [Moles/Vol] 138 mmol/L Normal 136-145 [facility] Comment on above: Order Comment: 'TROP ' Serial specimen #1, #2 or #3: 1 Performed By: #### L [id number] #### [facility] [address] [place], [address] T PROT 7.9 g/dL Normal 6.4-8.2 [facility] Comment on above: Order Comment: 'TROP ' Serial specimen #1, #2 or #3: 1 Performed By: #### L [id number] #### [facility] [address] [place], [address] Urea nitrogen [Mass/Vol] 39 mg/dL High 7-18 [facility] Comment on above: Order Comment: 'TROP ' Serial specimen #1, #2 or #3: 1 Performed By: #### L [id number] #### [facility] [address] [place], [address] Consultation - Surgicalon Consultation - Surgical [facility] Medical Records Department [address] [place] [address] Consultation - Surgical 02/04/24 1719 MR#: [id number] Acct: [id number] Name: TARIK BAKER Rep #: [id number] : 1945 78 From: Ariadna GRULLON PCP: Dr. Zac Linton MD Status:ADM IN Location: [facility] [id number] Assessment Plan Assessment/Plan (1) Bilateral pulmonary embolism: PLAN: Patient has PE with significant burden in the bilateral main pulmonary arteries with possible right heart strain. Troponin, BNP, lactic negative. At present, she is hemodynamically stable and resting comfortably on 4 L O2 maintaining saturation greater than 90% without any shortness of breath or chest pain. Echo is pending to further evaluate for right heart strain and pending these results may further consider thrombectomy. Will also consult pulmonary Dr. Anne for his input. Will keep her n.p.o. after midnight for now and reassess in the morning. HPI Consult Data Date of Consult: 02/04/24 HPI Narrative HPI Narrative: TARIK BAKER, is a 78 F who presented to the [facility] ER this afternoon with sudden onset of severe shortness of breath. She was reportedly 82% on room air. EKG showed sinus tachycardia. CTA revealed bilateral PE with evidence of possible right heart strain. Initial troponin was 42, lactic 1.1, BNP 104.5. She was admitted on a heparin drip for further management and consideration for possible thrombectomy. I saw patient this afternoon at bedside with caregiver present. She is on 4 L O2 via NC. She reports feeling much better with the supplemental oxygen, she is without any shortness of breath or chest pain at rest the time of my exam. She reports that while she had noticed possibly mild shortness of breath intermittently throughout the last few days it got significantly worse suddenly today. She reports a fall few months ago in which she injured her left arm and says she has been generally less active since then, but otherwise no significant illness or injury leading up to this. She denies any prior history of VTE. She reports possible recent diagnosis of paroxysmal A-fib, but not currently anticoagulated seemingly due to fall risk. She reports she takes aspirin only when she feels her heart fluttering. She seems to be a poor historian. [facility] Medical History (Updated 02/04/24 @ 16:02 by Moni Harris) Depression Non-smoker Pulmonary embolism Myocardial infarct TIA (transient ischemic attack) Atrial fibrillation Hypercholesteremia Diabetes Hypothyroid Home Medications ???Medication ???Instructions ???Recorded ???Last Taken ???Type fenofibrate 160 mg tablet 160 mg PO DAILY 12/18/20 02/04/24 History ascorbic acid (vitamin C) 100 mg 100 mg PO QDAY 01/24/24 02/04/24 History tablet aspirin 325 mg tablet 325 mg PO QDAY 01/24/24 02/04/24 History enalapril maleate 20 mg tablet 20 mg PO QDAY 01/24/24 02/04/24 History ergocalciferol (vitamin D2) 1,250 1,250 mcg PO MO 01/24/24 02/03/24 History mcg (50,000 unit) capsule levothyroxine 175 mcg tablet 175 mcg PO QDAY 01/24/24 02/04/24 History (Synthroid) multivitamin 1 tab PO QAM 01/24/24 02/04/24 History sertraline 100 mg tablet 100 mg PO QDAY 01/24/24 02/04/24 History furosemide 20 mg tablet 20 mg PO DAILY 02/04/24 02/04/24 History insulin NPH isoph U-100 human 100 25 unit subcut BID 02/04/24 02/04/24 History unit/mL subcutaneous suspension (Novolin N NPH U-100 Insulin isophane) metoprolol tartrate 25 mg tablet 25 mg PO BID 02/04/24 02/04/24 History zinc gluconate 100 mg tablet 100 mg PO DAILY 02/04/24 02/04/24 History Allergy/AdvReac Type Severity Reaction Status Date / Time prednisone Allergy Mild unknown Verified 02/04/24 11:08 Surgical History H/O tubal ligation Social History Smoking Status: Never smoker Electronic Cigarette Use: not used alcohol intake: never substance use type: does not use Physical Exam Const alert, oriented x3 and no apparent distress General Appearance: cooperative and comfortable HEENT normocephalic, head/scalp atraumatic, hearing grossly normal bilaterally and external ears normal Head and Scalp: normal to inspection, normocephalic and atraumatic Eyes EOMs intact bilaterally General Eye: normal appearance of both eyes Neck General: normal visual inspection and trachea midline Resp normal respiratory effort, no retractions and no use of accessory muscles Effort and Inspection: able to speak in complete sentences Cardio regular rate and regular rhythm Neuro CN's II-XII intact bilaterally, moves all extremities and no focal motor deficits Speech: speech normal Psych mental status grossly normal Appearance: grossly normal Attitude: calm an (more content not included)... Normal [facility] Echo Complete W/ Contraston 02-04-2024 Echo Complete W/ Contrast [facility] [address] [place] [address] Echo Complete W/ Contrast 02/05/24 0921 MR#: [id number] Acct: [id number] Name: TARIK BAKER Rep #: [id number] : 1945 78 From: Alma Gallagher MD Attending Dr: Dr. Min Carranza MD Status: ADM IN Ordering Dr: Nishant Tijerina DO Date: 02/04/24 Location: U Sex: F C Admitted: 02/04/24 Reason For Study: Emboli Procedure This was a 2D Doppler, Color Flow transthoracic echocardiogram. The study was technically difficult. Contrast injection was performed. Exam performed portable in patient room. Left Ventricle Normal LV size. The estimated ejection fraction is 60 %. Diastolic function is indeterminate. No regional wall motion abnormalities noted. Right Ventricle Normal RV size. Normal systolic function. Atria The left and right atria are normal. No doppler evidence for ASD. Mitral Valve There is no mitral valve stenosis. No mitral valve insufficiency. Tricuspid Valve There is no tricuspid stenosis. Mild tricuspid valve insufficiency. Pulmonary artery systolic pressure is 70 mmHg. Aortic Valve Trisinus/trileaflet aortic valve. There is no aortic stenosis. No aortic valve insufficiency. Pulmonic Valve There is no pulmonic valvular stenosis. No pulmonic valve insufficiency. Great Vessels Normal aortic root. Pericardium/Pleural No pericardial effusion. Medication Diluted definity 2ml given slow IV push to enhance endocardial definition. MMode/2D Measurements Calculations LVIDd: 3.8 cm IVSd: 1.5 cm LVOT diam: 2.0 cm LVIDs: 2.9 cm LVPWd: 1.5 cm RVDd: 4.0 cm FS: 24.9 % LVOT area: 3.0 cm2 _ Ao root diam: 3.2 cm LAV(MOD-bp): 40.2 ml Ao sinus diam: 3.2 cm LAV(MOD-bp) Indexed: 19.6 ml/m2 LAV(MOD-sp2): 43.0 ml LAV(MOD-sp4): 37.9 ml _ Ao ST Junction: 2.5 cm LA dimension(2D): 3.5 cm LA A4 area: 15.6 cm2 _ RA A4 area: 15.1 cm2 Time Measurements MV dec time: 0.17 sec Doppler Measurements Calculations MV E max faisal: 43.7 cm/sec Lat Peak E' Faisal: 9.3 cm/sec Med Peak E' Faisal: 6.9 cm/sec MV A max faisal: 104.3 cm/sec E/E' lat: 4.7 E/E' med: 6.3 MV E/A: 0.42 _ MV V2 max: 107.1 cm/sec Ao V2 max: 131.9 cm/sec MV max P.6 mmHg MV dec slope: 261.7 cm/sec2 Ao max P.0 mmHg MV V2 mean: 59.7 cm/sec MV mean P.7 mmHg RAISA(V,D): 2.5 cm2 MV V2 VTI: 18.4 cm MVA(VTI): 3.3 cm2 _ LV V1 max: 109.2 cm/sec SV(LVOT): 61.7 ml PA V2 max: 64.8 cm/sec LV V1 max P.8 mmHg LV V1 mean P.6 mmHg LV V1 mean: 75.1 cm/sec LV V1 VTI: 20.4 cm _ TR max faisal: 407.4 cm/sec TR max P.4 mmHg ECHO/Echo Complete W/ Contrast Interpretation Summary The estimated ejection fraction is 60 %. Diastolic function is indeterminate. Pulmonary artery systolic pressure is 70 mmHg. Ordering Physician: Nishant Tijerina Performed By: Carlos Waggoner RCS 02/05/24 1220 Date Alma Gallagher MD CC: Dr. Nishant Tijerina DO; Dr. Zac Linton MD; Dr. Min Carranza MD Date Dictated: 02/05/24920 Date Transcribed: 02/05/24 1220 Pretzel Cooker: Signed Normal [facility] Emergency Department Summary on 02-04-2024 Emergency Department Summary [facility] Medical Records Department [address] [place] [address] Emergency Department Summary 02/04/24 MR#: [id number] Acct: [id number] Name: TARIK BAKER Rep #: [id number] : 1945 78 From: Casimiro Parikh MD PCP: Dr. Zac Linton MD Status:REG ER Location: ED HPI History of Present Illness Chief Complaint: Shortness of Breath Detail of Chief Complaint: Shortness of breath and generalized weakness Informant: patient and spouse/S.O. Onset/Context/Timing Onset: Days Context: gradual Timing: Continuous and Waxes and wanes Quality: Positive for Dyspnea on exertion and Orthopnea (Patient slept in a recliner for approximately 1 year); Negative for PND or Wheezing Current Severity: Mild Maximum Severity: Moderate Worsened by: Exertion, Lying flat and Coughing Relieved by: Nothing Associated Symptoms cough and rhinorrhea; Negative for post nasal drip, ear pain, fever, sore throat, subjective, chills or sweats Chest Pain: Positive for None Narrative Narrative: Patient is a 78-year-old woman. She arrived by ambulance. Ambulance was called because she was short of breath. Pulse ox on room air was 82%. Patient is not on oxygen. She has history of atrial fibrillation, hypothyroidism and hypertension. Patient reports compliance with her meds. She states she took a aspirin this morning. She is not on an anticoagulant. She denies history of smoking. She denies history of lung problems and specifically asthma or COPD. Patient does have history of swollen legs. She has had this for some time. She denies history of VTE. She denies leg discoloration or pain. She denies pain with breathing. She denies abdominal pain, black or maroon-colored stool. Patient denies fever, chills night sweats. She does have some upper respiratory symptoms. She denies ill contacts. PE Risk Factors: Negative for Cancer, OCP + Smoking + > 35, Prior DVT or PE, Recent immobilization, Recent surgery or Recent travel Prior similar symptoms: No Recent Illness/Hospitalizat ion: Yes (Recently diagnosed with atrial fibrillation.) [facility] Medical History (Updated 02/04/24 @ 14:[address] Casimiro Parikh MD) Atrial fibrillation Hypercholesteremia Diabetes Hypothyroid Home Medications ???Medication ???Instructions ???Recorded ???Last Taken ???Type fenofibrate 160 mg tablet 160 mg PO DAILY 12/18/20 Unknown History insulin NPH isoph U-100 human 100 24 unit subcut BID 12/18/20 Unknown History unit/mL subcutaneous cartridge ondansetron 4 mg disintegrating 4 mg PO Q8H PRN nausea and 08/17/21 Unknown Rx tablet vomiting #10 tabs oxycodone-acetaminop hen 5 mg-325 1 tab PO Q8H PRN pain 3 days #12 10/17/23 Unknown Rx mg tablet (Percocet) tabs ascorbic acid (vitamin C) 100 mg 100 mg PO QDAY 01/24/24 Unknown History tablet aspirin 325 mg tablet 325 mg PO QDAY 01/24/24 Unknown History enalapril maleate 20 mg tablet 20 mg PO QDAY 01/24/24 Unknown History ergocalciferol (vitamin D2) 1,250 1,250 mcg PO QWEEK 01/24/24 Unknown History mcg (50,000 unit) capsule levothyroxine 175 mcg tablet 175 mcg PO QDAY 01/24/24 Unknown History (Synthroid) multivitamin 1 tab PO QAM 01/24/24 Unknown History sertraline 100 mg tablet 100 mg PO QDAY 01/24/24 Unknown History zinc acetate PO 01/24/24 Unknown History Allergy/AdvReac Type Severity Reaction Status Date / Time prednisone Allergy Mild unknown Verified 02/04/24 11:08 Surgical History H/O tubal ligation Social History Smoking Status: Never smoker Electronic Cigarette Use: not used alcohol intake: never substance use type: does not use ROS ROS ED Constitutional Constitutional ED: Denies chills, fever(s) or sweats Eyes Eyes: Denies blurry vision or change in vision ENT ENT ED: Reports rhinorrhea; Denies ear pain or sore throat Cardiovascular Cardiovascular: Reports orthopnea; Denies chest pain, palpitations, paroxysmal nocturnal dyspnea or racing heartbeat Respiratory/Chest Respiratory/Chest: Reports cough, dyspnea, dyspnea on exertion, orthopnea and sputum; Denies paroxysmal nocturnal dyspnea Gastrointestinal Gastrointestinal: Denies abdominal pain, diarrhea, melena, nausea or vomiting Genitourinary Genitourinary ED: Reports other Details: Patient states she has had urinary tract infection. She has symptoms when she has an infection. Presently she has none. ; Denies dysuria, hematuria or urinary frequency Musculoskeletal Musculoskeletal: Denies back pain or neck pain Integumentary Denies rash Neurologic Neurologic: Reports weakness; Denies headache(s) or paresthesias Endocrine Endocrinology: Denies cold intolerance or heat intolerance Hematologic/Lymphati c Hematologic/Lymphati c: Den (more content not included)... Normal [facility] H AND P Exam - Hospitaliston 02-04-2024 H&P Exam - Hospitalist [facility] Medical Records Department [address] [place] [address] H P Exam - Hospitalist 02/04/24 1359 MR#: [id number] Acct: [id number] Name: TARIK BAKER Rep #: [id number] : 1945 78 From: Nishant Tijerina DO PCP: Dr. Zac Linton MD Status:ADM IN Location: [facility] [id number] HPI - General General Date of Admission: 02/04/24 Date of Service: 02/04/24 Chief Complaint: Worsening shortness of breath HPI Narrative TARIK BAKER, is a 78 F who presented to [facility] ED on 02/04/2024 with worsening shortness of breath. Patient reported progressive worsening shortness of breath for the past few months. She also notes bilateral leg swelling during that time frame. Swelling is worse in the left leg. Notes that she experienced a fall at home about 4 months ago and has been fairly immobile since then. On arrival to the ED was found to be hypoxic requiring 4 L nasal cannula to maintain oxygen saturations in the low 90s. Does not wear oxygen at home. CTA chest showed extensive bilateral pulmonary emboli with concern for right heart strain. Dr. Parikh discussed with Dr. Singh who noted that patient may be a candidate for pulmonary thrombectomy. Hospitalist was contacted for admission with plan for vascular surgery consult. I saw the patient at bedside in the ED, was present. Patient was sitting up comfortably in bed, conversing normally, in no acute distress. She was breathing comfortably on 4 L nasal cannula with oxygen saturations in the low to mid 90s. She denied any shortness of breath at rest currently. Denied any fevers or chills. Denied any palpitations. Stated that for the past few days she has felt like she might pass out when walking around. No prior history of clots. No other acute concerns at this time. [facility] Medical History (Updated 02/04/24 @ 15:[address] Nishant Tijerina, DO) Atrial fibrillation Hypercholesteremia Diabetes Hypothyroid Home Medications ???Medication ???Instructions ???Recorded ???Last Taken ???Type fenofibrate 160 mg tablet 160 mg PO DAILY 12/18/20 02/04/24 History ascorbic acid (vitamin C) 100 mg 100 mg PO QDAY 01/24/24 02/04/24 History tablet aspirin 325 mg tablet 325 mg PO QDAY 01/24/24 02/04/24 History enalapril maleate 20 mg tablet 20 mg PO QDAY 01/24/24 02/04/24 History ergocalciferol (vitamin D2) 1,250 1,250 mcg PO MO 01/24/24 02/03/24 History mcg (50,000 unit) capsule levothyroxine 175 mcg tablet 175 mcg PO QDAY 01/24/24 02/04/24 History (Synthroid) multivitamin 1 tab PO QAM 01/24/24 02/04/24 History sertraline 100 mg tablet 100 mg PO QDAY 01/24/24 02/04/24 History furosemide 20 mg tablet 20 mg PO DAILY 02/04/24 02/04/24 History insulin NPH isoph U-100 human 100 25 unit subcut BID 02/04/24 02/04/24 History unit/mL subcutaneous suspension (Novolin N NPH U-100 Insulin isophane) metoprolol tartrate 25 mg tablet 25 mg PO BID 02/04/24 02/04/24 History zinc gluconate 100 mg tablet 100 mg PO DAILY 02/04/24 02/04/24 History Allergy/AdvReac Type Severity Reaction Status Date / Time prednisone Allergy Mild unknown Verified 02/04/24 11:08 Surgical History H/O tubal ligation Social History Smoking Status: Never smoker Electronic Cigarette Use: not used alcohol intake: never substance use type: does not use ROS Constitutional Constitutional: Reports fatigue and weakness; Denies chills or fever(s) Eyes Eyes: Denies change in vision Cardiovascular Cardiovascular: Reports dyspnea on exertion, edema and lightheadedness; Denies chest pain, palpitations, rapid heart rate or syncope Respiratory/Chest Respiratory/Chest: Reports shortness of breath at rest and shortness of breath with exertion; Denies cough, productive cough or wheezing Gastrointestinal Gastrointestinal: Denies abdominal pain Musculoskeletal Musculoskeletal: Denies arthralgias, back pain or myalgias Neurologic Neurologic: Denies dizziness, focal weakness or headache(s) Vital Signs Vital Signs Vital Signs: 02/04/24 11:08 02/04/24 11:12 02/04/24 11:13 Temperature 98.6 F 98.4 F Temperature Source Oral Oral Pulse Rate 101 H 98 Respiratory Rate 18 24 H Respiratory Effort Short of Breath Respiratory Depth Normal Respiratory Pattern Tachypnea Blood Pressure 168/84 H 168/84 H Blood Pressure Mean 112 112 Pulse Ox 94 94 Oxygen Delivery Method Nasal Cannula Nasal Cannula Nasal Cannula Oxygen Flow Rate (L/min) 4 2 2 02/04/24 11:48 02/04/24 13:07 Temperature Temperature Source Pulse Rate 92 Respiratory Rate 30 H Respiratory Effort Respiratory Depth Respiratory Pattern Blood Pressure 127/110 H (more content not included)... Normal [facility] L501.4020on 02-04-2024 TROPONIN-I HS 42 pg/mL Normal 3.0-54.0 [facility] Comment on above: Order Comment: 'TROP ' Serial specimen #1, #2 or #3: 1 Result Comment: Rachele robles Note: New Test Units and Gender Specific Reference Ranges. For more information see Policy Stat Procedure [place] High Sensitivity Troponin (TNIH) and attachments. Performed By: #### L [id number] #### [facility] [address] [place], [address] Lactic Acidon 02-04-2024 Lactate [Moles/Vol] 1.1 mmol/L Normal 0.4-1.9 [facility] Comment on above: Performed By: #### L 503.6005 #### [facility] [address] [place], [address] Lactate [Moles/Vol] 2.0 mmol/L Normal 0.4-1.9 [facility] Comment on above: Order Comment: Y Result Comment: Crit ical Result(s) Called at: 12:44:58 02/04/2024 by: Aviva Sarmiento to Cordelia Carcamo. Results read back by same. Performed By: #### L [id number] #### [facility] [address] [place], [address] M100.678on 02-04-2024 M100.678 Pending SARS-CoV-2 (COVID 19) Negative INFLUENZA A Negative INFLUENZA B Negative RSV PCR Negative Normal [facility] Comment on above: Performed By: #### M 100.678 ####[facility] [address] [place], [address] Partial Thromboplast Timeon 02-04-2024 aPTT Coag (Bld) [Time] 235.1 s Invalid Interpretation Code 24.1-36.2 [facility] Comment on above: Order Comment: Comme nts: heparin gtt time sensitive Result Comment: CRIT ICAL VALUE CALLED TO CY REVELES RN PCU 02/04/242054 Juan Barrios. RESULTS READ BACK BY SAME . Performed By: #### L 300.4310 #### [facility] [address] [place], [address] aPTT Coag (Bld) [Time] 24.5 s Normal 24.1-36.2 [facility] Comment on above: Performed By: #### L 501.9985 #### [facility] [address] [place], [address] Prothrombin Time w/INRon INR Coag (PPP) [Relative time] 1.2 {INR} Normal [facility] Comment on above: Performed By: #### L [id number] #### [facility] [address] [place], [address] PT Coag (PPP) [Time] 15.1 s High 11.7-14.9 [facility] Comment on above: Performed By: #### L [id number] #### [facility] [address] [place], [address] Urinalysis, Completeon 02-03 EPI,SQUAMOUS 0-5 SEEN Normal 5-10 [facility] Comment on above: Order Comment: CLEAN CATCH Performed By: #### L 400.0001 ####[facility] [facility] [address] [place], [address] RBC 5-10 SEEN Normal 0-5 [facility] Comment on above: Order Comment: CLEAN CATCH Performed By: #### L 400.0001 ####[facility] [address] [place], [address] WBC 0-5 SEEN Normal 0-5 [facility] Comment on above: Order Comment: CLEAN CATCH Performed By: #### L 400.0001 ####[facility] [address] [place], [address] BACTERIA 0 SEEN Normal None Seen [facility] Comment on above: Order Comment: CLEAN CATCH Performed By: #### L 400.0001 ####[facility] [address] [place], [address] Mucus Ql (Urine sed) 0 SEEN Normal [facility] Comment on above: Order Comment: CLEAN CATCH Performed By: #### L 400.0001 ####[facility] [address] [place], [address] Venous Duplex US - Oscar Extre [facility] 02-04-2024 Venous Duplex US - Oscar Extrem [facility] [address] [place] [address] Venous Duplex US - Oscar Extrem 02/04/24 1436 MR#: [id number] Acct: [id number] Name: TARIK BAKER Rep #: [id number] : 1945 78 From: Noah Singh MD Attending Dr: Dr. Min Carranza MD Status: ADM IN Ordering Dr: Nishant Tijerina DO Date: 02/04/24 Location: [facility] Sex: F C Admitted: 02/04/24 Reason For Study: BLE SWELLING RIGHT LEFT GSV is normal. GSV is normal. CFV is compressible, spontaneous, phasic, CFV is compressible, spontaneous, phasic, competent and demonstrates normal competent, and demonstrates normal augmentation. augmentation. FV is compressible, spontaneous, phasic, FV is compressible, spontaneous, phasic, competent and demonstrates normal competent and demonstrates normal augmentation. augmentation. POP V is compressible, spontaneous, phasic, POP V is compressible, spontaneous, phasic, competent and demonstrates normal competent and demonstrates normal augmentation. augmentation. PTV is compressible. T/P Trunk is compressible. RT PerV is compressible. PTV is compressible. Acute deep vein thrombosis is noted in the LT PerV is compressible. T/P Trunk. It is dilated and NONCOMPRESSIBLE. Procedure This is a venous duplex using B-mode, color flow and spectral Doppler. Exam performed portable in patient room. A preliminary report was called and/or faxed to U. VL/Venous Duplex US - Oscar Extrem Interpretation Summary Acute deep vein thrombosis is noted in the right tibio-peroneal trunk. Deep veins of the left lower extremity are patent and compressible segmentally. There is no evidence of left lower extremity deep vein thrombosis. The bilateral great saphenous veins appear patent and compressible segmentally. Ordering Physician: Nishant Tijerina Referring Physician: Zac Linton Performed By: Noreen Oliveira, RDCS, RVT 02/05/241540 Date Noah Singh MD CC: Dr. Nishant Tijerina DO; Dr. Zac Linton MD; Dr. Min Carranza MD Date Dictated: 02/04/241435 Date Transcribed: 02/05/241540 Pretzel Cooker: Signed Normal [facility] Comprehensive metabolic 2000 panelon 01-03-2024 Albumin [Mass/Vol] 4.1 g/dL 3.9 - 4.9 g/dL [facility] ALP [Catalytic activity/Vol] 56 U/L 34 - 123 U/L [facility] ALT [Catalytic activity/Vol] 16 U/L 7 - 38 U/L [facility] Anion gap [Moles/Vol] 11 mmol/L 8 - 15 mmol/L [facility] AST [Catalytic activity/Vol] 20 U/L 13 - 35 U/L [facility] Bilirubin [Mass/Vol] mg/dL Low 0.2 - 1 .3 mg/dL [facility] Calcium [Mass/Vol] 9.7 mg/dL 8.5 - 10. 2 mg/dL [facility] Chloride [Moles/Vol] 105 mmol/L 98 - 10 7 mmol/L [facility] CO2 [Moles/Vol] 22 mmol/L 22 - 30 mmol/L [facility] Creatinine [Mass/Vol] 1.01 mg/dL High 0.58 - 0.96 mg/dL [facility] GFR/1.73 sq M.predicted among non-blacks MDRD (S/P/Bld) [Vol rate/Area] 57 mL/min/{1.73_m2} Low - PINF [facility] Comment on above: Estimated Glomerular Filtration Rate (eGFR) is calculated using the 2020 CKD-EPI creatinine equation. This equation utilizes serum creatinine, sex, and age as parameters. The creatinine assay has traceable calibration to isotope dilution-mass spectrometry. Refer to KDIGO guidelines for clinical interpretation. In patients with unstable renal function, e.g. those with acute kidney injury, the eGFR may not accurately reflect actual GFR. Glucose [Mass/Vol] 146 mg/dL High 74 - 99 mg/dL [facility] Comment on above: The [place] Diabete s Association (ADA) provides guidance for cutoff values for fasting glucose and random glucose. The ADA defines fasting as no caloric intake for at least 8 hours. Fasting plasma glucose results between 100 to 125 mg/dL indicate increased risk for diabetes (prediabetes). Fasting plasma glucose results greater than or equal to 126 mg/dL meet the criteria for diagnosis of diabetes. In the absence of unequivocal hyperglycemia, results should be confirmed by repeat testing. In a patient with classic symptoms of hyperglycemia or hyperglycemic crisis, random plasma glucose results greater than or equal to 200 mg/dL meet the criteria for diagnosis of diabetes. Reference: Standards of Medical Care in Diabetes 2016, [place] Diabetes Association. Diabetes Care. 2016.39(Suppl 1). Potassium [Moles/Vol] 4.8 mmol/L 3.7 - 5.1 mmol/L [facility] Protein [Mass/Vol] 7.6 g/dL 6.3 - 8.0 g/dL [facility] Sodium [Moles/Vol] 138 mmol/L 136 - 144 mmol/L [facility] Urea nitrogen [Mass/Vol] 34 mg/dL High 7 - 21 mg/dL [facility] MAGNESIUMon 01-03-2024 Magnesium [Mass/Vol] 2.0 mg/dL 1.7 - 2 .3 mg/dL [facility] Magnesium [Mass/Vol]on 01-02 Interpretation and review of laboratory results Normal [facility] NT PRO BNPon 01-03-2024 Natriuretic peptide.B prohormone N-Terminal [Mass/Vol] 1379 pg/mL High NINF - 450 pg/mL [facility] No Panel Informationon 01-02 Interpretation and review of laboratory results Abnormal [facility] US Kidney - bilateral and Ur inary bladderon 12-16-2023 IMPRESSION: NORMAL SONOGRAPHIC APPEARANCE OF KIDNEYS AND BLADDER. Pretzel Cooker: EDOUARD Transcribe Date/Time: Dec 16 2023 1:07P Dictated by : RED MEJIA MD This examination was interpreted and the report reviewed and electronically signed by: RED MEJIA MD on Dec 16 2023 1:11PM [facility] DIVISION OF RADIOLOGY * * *Final Report* * * DATE OF EXAM: Dec 16 2023 10:43AM [facility] 1055 - US KIDNEY/BLADDER / PROCEDURE REASON: multiple diagnoses * * * * Physician Interpretation * * * * EXAMINATION: RENAL ULTRASOUND CLINICAL HISTORY: Recurrent urinary tract infection TECHNIQUE: Sonography of the kidneys and urinary bladder was performed. Images were obtained and stored in a permanent archive. MQ: UR_1 COMPARISON: None RESULT: Right Kidney: -Renal length: 10.1 cm -Parenchyma: Normal parenchymal echogenicity. Normal parenchymal thickness. -Collecting system: No hydronephrosis. -Calculus: No echogenic, shadowing calculus. -Lesion: None. Left Kidney: -Renal length: 9.5 cm -Parenchyma: Normal parenchymal echogenicity. Normal parenchymal thickness. -Collecting system: No hydronephrosis. -Calculus: No echogenic, shadowing calculus. -Lesion: None. Bladder: Normal sonographic appearance. Incompletely distended Renal contours are somewhat suboptimally seen due to overlying bowel gas and patient build DIVISION OF RADIOLOGY Provider, [facility] - 12/16/2023 * * *Final Report* * * DATE OF EXAM: Dec 16 2023 10:43AM U 1055 - US KIDNEY/BLADDER / PROCEDURE REASON: multiple diagnoses * * * * Physician Interpretation * * * * EXAMINATION: RENAL ULTRASOUND CLINICAL HISTORY: Recurrent urinary tract infection TECHNIQUE: Sonography of the kidneys and urinary bladder was performed. Images were obtained and stored in a permanent archive. MQ: UR_1 COMPARISON: None RESULT: Right Kidney: -Renal length: 10.1 cm -Parenchyma: Normal parenchymal echogenicity. Normal parenchymal thickness. -Collecting system: No hydronephrosis. -Calculus: No echogenic, shadowing calculus. -Lesion: None. Left Kidney: -Renal length: 9.5 cm -Parenchyma: Normal parenchymal echogenicity. Normal parenchymal thickness. -Collecting system: No hydronephrosis. -Calculus: No echogenic, shadowing calculus. -Lesion: None. Bladder: Normal sonographic appearance. Incompletely distended Renal contours are somewhat suboptimally seen due to overlying bowel gas and patient build IMPRESSION IMPRESSION: NORMAL SONOGRAPHIC APPEARANCE OF KIDNEYS AND BLADDER. Pretzel Cooker: EDOUARD Transcribe Date/Time: Dec 16 2023 1:07P Dictated by : RED MEJIA MD This examination was interpreted and the report reviewed and electronically signed by: RED MEJIA MD on Dec 16 2023 1:11PM EST [facility] Radiology Study observation (narrative) [facility] US Kidney - bilateral and Ur inary bladderOrdered By: [facility] Provider on 12-16-2023 [facility] UA DIP, URINE (POC)on 2023 BILIRUBIN UA (POCT) Negative Negative [facility] CLARITY UA (POCT) Cloudy [facility] COLOR UA (POCT) Yellow [facility] GLUCOSE UA (POCT) Negative Negative mg/dL [facility] Hemoglobin Ql (U) Moderate Abnormal Negative [facility] Interpretation and review of laboratory results Abnormal [facility] KETONE UA (POCT) Negative Negative mg/dL [facility] LEUKOCYTES UA (POCT) Large Abnormal Negative [facility] NITRITE UA (POCT) Negative Negative [facility] PH UA (POCT) 6.5 4.5 - 8.0 [facility] Protein Ql (U) 30 mg/dL Abnormal Negative [facility] SPECIFIC GRAVITY UA (POCT) 1.025 1.005 - 1.030 [facility] UROBILINOGEN UA (POCT) 0.2 Phuong l E.U./dL [facility] Location:[address], [place], [place], [id number] [place] [address] POINT OF CARE [facility] Urinalysis complete panel (U )on 12-02-2023 Bacteria uL 1987.4 uL High Negative [facility] Bilirubin Ql (U) Negative Negative [facility] Clarity (Unsp spec) Cloudy Abnormal Clear [facility] Color (U) Yellow Yellow [facility] Epithelial cells LM.HPF (Urine sed) [#/Area] None Seen /HPF [facility] Glucose Test strip (U) [Mass/Vol] Negative Negative [facility] Hemoglobin Ql (U) 2+ Abnormal Negative [facility] Hyaline casts (Urine sed) [#/Area] 0 /[LPF] 0 /LPF [facility] Interpretation and review of laboratory results Abnormal [facility] Ketones Ql (U) Negative Negative [facility] Leukocyte esterase Test strip Ql (U) 2+ Abnormal Negative [facility] Nitrite Ql (U) Negative Negative [facility] pH (U) 6.5 [pH] NINF - 8.5 [facility] Protein (U) [Mass/Vol] 1+ Abnormal Negative Cl [facility] RBC LM.HPF (Urine sed) [#/Area] /[HPF] Abnormal 0-2 /HPF [facility] Specific gravity (U) [Rel density] 1.018 1.005 - 1.030 [facility] Urobilinogen Ql (U) 0.2 EU/dL 0.2-1.0 EU/dL [facility] WBC LM.HPF (Urine sed) [#/Area] /[HPF] Abnormal 0-5 /HPF [facility] This test was developed and its performance characteristics determined by [facility]'s [facility] [place] ([facility]). It has not been cleared or approved by the FDA. [facility] is regulated under CLIA as qualified to perform high-complexity testing. This test is used for clinical purposes. It should not be regarded as investigational or for research. [facility] Emergency Department Summary on 10-17-2023 Emergency Department Summary [facility] Medical Records Department [address] [place] [address] Emergency Department Summary 10/17/23 MR#: [id number] Acct: [id number] Name: TARIK BAKER Rep #: [id number] : 1945 78 From: Isai Louie DO PCP: Dr. Zac Linton MD Status:DEP ER Location: ED HPI History of Present Illness Chief Complaint: Upper Extremity Injury Informant: patient and EMS Narrative Narrative: 78-year-old female presenting to the emergency room with left upper arm pain. Patient states that she took a fall this morning after stepping wrong coming out onto her deck. She states that she is unsure if she tried to catch herself but knows that the left shoulder hit the ground. She denies any other injuries. The patient states that the pain is feeling better now but still hurts just below her left shoulder. [facility] Medical History Hypercholesteremia Diabetes Hypothyroid Home Medications ???Medication ???Instructions ???Recorded ???Last Taken ???Type aspirin 81 mg chewable tablet 81 mg PO DAILY 12/18/20 Unknown History ergocalciferol (vitamin D2) 1,250 1,250 mcg PO DAILY 12/18/20 Unknown History mcg (50,000 unit) capsule fenofibrate 160 mg tablet 160 mg PO DAILY 12/18/20 Unknown History insulin NPH isoph U-100 human 100 24 unit subcut BID 12/18/20 Unknown History unit/mL subcutaneous cartridge levothyroxine 150 mcg tablet 150 mcg PO DAILY 12/18/20 Unknown History lisinopril 20 1 tab PO DAILY 12/18/20 Unknown History mg-hydrochlorothiazi de 12.5 mg tablet nitrofurantoin 100 mg PO BID 7 days #14 caps 08/17/21 Unknown Rx monohydrate/macrocry stals 100 mg capsule (Macrobid) ondansetron 4 mg disintegrating 4 mg PO Q8H PRN nausea and 08/17/21 Unknown Rx tablet vomiting #10 tabs oxycodone-acetaminop hen 5 mg-325 1 tab PO Q8H PRN pain 3 days #12 10/17/23 Unknown Rx mg tablet (Percocet) tabs Allergy/AdvReac Type Severity Reaction Status Date / Time No Known Allergies Allergy Verified 10/17/23 08:33 Social History Smoking Status: Never smoker substance use type: does not use ROS ROS ED Constitutional Constitutional ED: Denies chills, fever(s) or weight loss Eyes Eyes: Denies change in vision or diplopia ENT ENT ED: Denies ear pain, rhinorrhea or sore throat Cardiovascular Cardiovascular: Denies chest pain, orthopnea, palpitations or racing heartbeat Respiratory/Chest Respiratory/Chest: Denies cough, dyspnea or orthopnea Gastrointestinal Gastrointestinal: Denies abdominal pain, diarrhea, nausea or vomiting Genitourinary Genitourinary ED: Denies dysuria, hematuria or urinary frequency Musculoskeletal Musculoskeletal: Reports other Details: Left upper arm pain ; Denies arthralgias, back pain, myalgias or neck pain Integumentary Denies abscess, Abrasions or rash Neurologic Neurologic: Denies headache(s) or weakness Psychiatric Psychiatric: Denies anxiety, depression, suicidal ideation or suicidal thoughts Endocrine Endocrinology: Denies polydipsia, polyphagia or polyuria Allergic/Immunologic Allergic/Immunologic ED: Denies mouth swelling, tongue swelling or urticaria EXAM Physical Exam Const Vital Signs: 10/17/23 08:29 Temperature 98 F Temperature Source Oral Pulse Rate 84 Respiratory Rate 16 Blood Pressure 166/75 H Blood Pressure Mean 105 Pulse Ox 97 Oxygen Delivery Method Room Air Positive well nourished, well developed and obese General Appearance ED: well developed Nutritional Appearance: obese HEENT Reports normocephalic, head/scalp atraumatic and moist mucous membranes Eyes PERRL and EOMs intact bilaterally Neck full ROM, no lymphadenopathy, supple and no JVD General: Negative for tenderness Resp normal respiratory effort and clear to auscultation bilaterally Cardio regular rate, regular rhythm and no murmurs GI normal to inspection, nondistended, normoactive bowel sounds and non-tender Palpation: soft Back/Spine no CVA tenderness and normal ROM Extremity Extremity Narrative: Patient is laying in the bed no acute distress. She holds the left shoulder and more of the left shoulder shrug. She points to the mid upper humerus as the area that hurts. I do not palpate a deformity dislocation or significant swelling or see ecchymosis. Limited range of motion secondary to pain. The clavicle palpates normally. No tenderness over the scapula. General Extremety ED: Negative for edema General Extremity: Negative for edema Neuro oriented x3 and CN's II-XII intact bilaterally Sensorium / Orientation: alert Motor Exam: strength 5/5 throughout Psych mental status grossly normal Mood Affect: Negative for depressed or tearful S (more content not included)... Normal [facility] Humerus min 2 Viewson 2023 Humerus min 2 Views [facility] Imaging Services [address] [place], [place] [address] Humerus min 2 Views MR#: [id number] Acct: [id number] Name: TARIK BAKER Rep #: [id number] : 1945 F 78 From: Jax vincent MD PCP: Dr. Zac Linton MD Status: REG ER Study: Humerus min 2 Views Date of Exam: 10/17/23 Exam# [id number] Ordering Dr: Chava Menezes [id number] STUDY: X-RAY - LEFT HUMERUS REASON FOR EXAM: Female, 78 years old. FALL TECHNIQUE: 3 view(s) of the humerus. COMPARISON: None. FINDINGS: There is a nondisplaced fracture of the surgical neck of the proximal humerus extending into the lesser and greater tuberosities. Soft tissue swelling. RAD/Humerus min 2 Views IMPRESSION: Nondisplaced transverse fracture through the surgical neck of the proximal humerus with extension to the greater and lesser tuberosities. Electronically Signed: Jax Liz MD at 9:11 EDT , CC: Dr. Zac Linton MD; ED PHYSICIAN PROVIDER Pretzel Cooker: Signed Normal [facility] UA DIP, URINE (POC)on 2022 BILIRUBIN UA (POCT) Negative Negative [facility] CLARITY UA (POCT) Cloudy [facility] COLOR UA (POCT) Yellow [facility] GLUCOSE UA (POCT) Negative Negative mg/dL [facility] Hemoglobin Ql (U) Trace-lysed Abnormal Negative [facility] KETONE UA (POCT) Negative Negative mg/dL [facility] LEUKOCYTES UA (POCT) Moderate Abnormal Negative [facility] NITRITE UA (POCT) Positive Abnormal Negative [facility] PH UA (POCT) 5.5 4.5 - 8.0 [facility] Protein Ql (U) 30 mg/dL Abnormal Negative mg/dL [facility] SPECIFIC GRAVITY UA (POCT) 1.025 1.005 - 1.030 [facility] UROBILINOGEN UA (POCT) 0.2 E.U./dL Phuong l E.U./dL [facility] UA DIP, URINE (POC)on 2022 BILIRUBIN UA (POCT) Negative Negative [facility] CLARITY UA (POCT) Clear [facility] COLOR UA (POCT) Dark yellow [facility] GLUCOSE UA (POCT) Negative Negative mg/dL [facility] HEMOGLOBIN/BLOOD UA (POCT) Trace-intact Abnormal Negative [facility] KETONE UA (POCT) Negative Negative mg/dL [facility] LEUKOCYTES UA (POCT) Moderate Abnormal Negative [facility] NITRITE UA (POCT) Positive Abnormal Negative [facility] PH UA (POCT) 5.5 4.5 - 8.0 [facility] Protein Ql (U) Negative Negative mg/dL [facility] SPECIFIC GRAVITY UA (POCT) 1.025 1.005 - 1.030 [facility] UROBILINOGEN UA (POCT) 0.2 E.U./dL Phuong l E.U./dL [facility] UA DIP, URINE (POC)on 2021 BILIRUBIN UA (POCT) Negative Negative [facility] CLARITY UA (POCT) Cloudy [facility] COLOR UA (POCT) Dark yellow [facility] GLUCOSE UA (POCT) Negative Negative mg/dL [facility] HEMOGLOBIN/BLOOD UA (POCT) Trace-intact Abnormal Negative [facility] KETONE UA (POCT) 15 mg/dL Abnormal Negative mg/dL [facility] LEUKOCYTES UA (POCT) Moderate Abnormal Negative [facility] NITRITE UA (POCT) Positive Abnormal Negative [facility] PH UA (POCT) 7.0 4.5 - 8.0 [facility] Protein Ql (U) Trace Abnormal Negative mg/dL [facility] SPECIFIC GRAVITY UA (POCT) 1.020 1.005 - 1.030 [facility] UROBILINOGEN UA (POCT) 0.2 E.U./dL Phuong l E.U./dL [facility] Absolute lymphocyte counton 08-16-2021 Lymphocytes Auto (Unsp spec) [#/Vol] 1.08 10*3/uL 0.83-4.51 [facility] Work Phone: Basophil percentageon 2021 Basophil percentage >100 SEEN /hpf [facility] Work Phone: Basophils/100 WBC (Bld) 0.2 % 0-1 [facility] Work Phone: Chloride [Moles/Vol] 104 mmol/L 98-107 [facility] Work Phone: Eosinophils/100 WBC (Bld) 0.7 % 0-5 [facility] Work Phone: Glucose [Mass/Vol] 177 mg/dL 74-106 [facility] Work Phone: Comment on above: Fasting Glucose resu lt greater than or equal to 126 mg/dL suggests DIABETES MELLITUS per A.D.A. criteria. Neutrophils (Bld) [#/Vol] 8.5 10*3/uL 2.0-7.7 [facility] Work Phone: Neutrophils/100 WBC (Bld) 79.4 % 47-70 [facility] Work Phone: [phone] Potassium [Moles/Vol] 4.9 mmol/L 3.5-5.1 [facility] Work Phone: Comment on above: Moderate Hemolysis, Result may be falsely increased. Sodium [Moles/Vol] 132 mmol/L 136-145 [facility] Work Phone: WBC (Bld) [#/Vol] 10.7 10*3/uL 4.4-11.0 [facility] Work Phone: Bilirubin Test strip Ql (U)o n 08-16-2021 Bilirubin Ql (U) Negative Negative [facility] Work Phone: Blood erythrocytes count (nu mber/volume)on 08-16-2021 RBC (Bld) [#/Vol] 3.82 10*6/uL 4.2-5.4 [facility] Work Phone: Blood hemoglobin measurement (mass/volume)on 08-16-2021 Hemoglobin (Bld) [Mass/Vol] 11.9 g/dL 12.0-15.0 [facility] Work Phone: Blood lymphocytes/100 leukoc yteson 08-16-2021 Lymphocytes/100 WBC (Bld) 10.1 % 19-41 [facility] Work Phone: Blood monocytes/100 leukocyt eson 08-16-2021 Monocytes/100 WBC (Bld) 9.2 % 0-10 [facility] Work Phone: Blood platelet mean volumeon 08-16-2021 Platelet mean volume (Bld) [Entitic vol] 10.3 fL 6.2-12.0 [facility] Work Phone: Determination of erythrocyte mean corpuscular volume (MCV)on 08-16-2021 MCV (RBC) [Entitic vol] 94.2 fL 81-99 [facility] Work Phone: Glucose Glucometer (BldC) [M ass/Vol]on 08-16-2021 Glucose [Mass/Vol] 193 mg/dL 74-106 [facility] Work Phone: Comment on above: MANAGEMENT OF PATIEN T CARE PER NURSING PROTOCOL Hematocrit Auto (Bld) [Volum e fraction]on 08-16-2021 Hematocrit (Bld) [Volume fraction] 36.0 % 37-47 [facility] Work Phone: Ketones Test strip Ql (U)on 08-16-2021 Ketones Ql (U) Negative Negative [facility] Work Phone: Laboratory - Chemistry and C hemistry - challengeon 08-16-2021 CO2 [Moles/Vol] 22.0 mmol/L 21.0-32.0 [facility] Work Phone: Urea nitrogen/Creatinine [Mass ratio] 19.4 mg/mg 10-20 [facility] [facility] Work Phone: [phone] Laboratory - Hematology and Cell countson 08-16-2021 Erythrocyte distribution width (RBC) [Entitic vol] 46.4 fL 35.1-43.9 [facility] Work Phone: [phone] Erythrocyte distribution width (RBC) [Ratio] 13.4 % 11.6-14.6 [facility] Work Phone: [phone] Immature granulocytes/100 WBC (Bld) 0.400 % 0.0-0.9 [facility] Work Phone: [phone] Comment on above: IG% - Immature Granu locytes (promyelocytes, myelocytes and metamyelocytes) > 1% indicates that a LEFT SHIFT is Present. MCH (RBC) [Entitic mass] 31.2 pg 27.0-32.0 [facility] Work Phone: [phone] Nucleated RBC/100 WBC (Bld) [Ratio] 0 % 0-5 [facility] Work Phone: [phone] MCHC Auto (RBC) [Mass/Vol]on 08-16-2021 MCHC (RBC) [Mass/Vol] 33.1 g/dL 32-36 [facility] Work Phone: [phone] Mucus LM Ql (Urine sed)on Mucus Ql (Urine sed) 0 SEEN /hpf [facility] Work Phone: [phone] Nitrite Test strip Ql (U)on 08-16-2021 Nitrite Ql (U) Positive Negative [facility] Work Phone: [phone] Panel Informationon 08-16 Estimated Creatinine Clearance Calc 35.27 ml/min [facility] Work Phone: [phone] Estimated GFR (MDRD) Amer 54 mL/min >60 [facility] Work Phone: [phone] Comment on above: GFR Calc Estimated GFR (MDRD) Non-Af Amer 45 mL/min >60 [facility] Work Phone: [phone] Comment on above: Non- GFR Calc Troponin I High Sensitivity 5 pg/mL 3.0-54.0 [facility] Work Phone: [phone] Comment on above: Please Note: New Leobardo t Units and Gender Specific Reference Ranges. For more information see Policy Stat Procedure [place] High Sensitivity Troponin (TNIH) and attachments. Platelets bldon 08-16-2021 Platelets (Bld) [#/Vol] 298 10*3/uL 150-450 [facility] Work Phone: Protein Test strip Ql (U)on 08-16-2021 Protein Ql (U) 30 mg/dl Negative [facility] Work Phone: [phone] Serum or plasma calcium shwetha urement (mass/volume)on 08-16-2021 Calcium [Mass/Vol] 9.2 mg/dL 8.5-10.1 [facility] Work Phone: [phone] Serum or plasma creatinine m easurement (mass/volume)on 08-16-2021 Creatinine [Mass/Vol] 1.24 mg/dL 0.55-1.02 [facility] Work Phone: Comment on above: The validity of the calculated GFR & GFRAA in patients over 70 years has not been determined. Clinical correlation is essential. Serum or plasma urea nitroge n measurement (mass/volume)on 08-16-2021 Urea nitrogen [Mass/Vol] 24 mg/dL 7-18 [facility] Work Phone: Squamous epithelial cells de tection in urine sediment by light microscopyon 08-16-2021 Epithelial cells.squamous LM Ql (Urine sed) 5-10 SEEN /hpf [facility] Work Phone: [phone] Thin prep Papanicolaou smear with manual screeningon 08-16-2021 Thin prep Papanicolaou smear with manual screening 6 5-15 [facility] Work Phone: Urine blood detectionon 08-04 RBC Ql (U) 50 /ul Negative [facility] Work Phone: [phone] RBC Ql (U) 5-10 SEEN /hpf [facility] Work Phone: [phone] Urine clarityon 08-16-2021 Clarity (U) Cloudy Clear [facility] Work Phone: [phone] Urine color determinationon 08-16-2021 Color (U) Yellow Yellow [facility] Work Phone: [phone] Urine glucose detectionon Glucose Ql (U) Normal mg/dl Normal [facility] Work Phone: [phone] Urine leukocyte esterase det ection by dipstickon 08-16-2021 Leukocyte esterase Test strip Ql (U) 500 /ul Negative [facility] Work Phone: Urine pHon 08-16-2021 pH (U) 6.0 [pH] [facility] Work Phone: Urine sediment bacteria coun t by microscopy (number/high power field)on 08-16-2021 Bacteria LM.HPF (Urine sed) [#/Area] 2 /[HPF] None Seen [facility] Work Phone: Urine sediment renal epithel ial cell count by microscopy (number/high power field)on 08-16-2021 Epithelial cells.renal LM.HPF (Urine sed) [#/Area] 0 /[HPF] [facility] Work Phone: Urine specific gravity measu rementon 08-16-2021 Specific gravity (U) [Rel density] 1.010 [facility] Work Phone: Urobilinogen Auto test strip Ql (U)on 08-16-2021 Urobilinogen Ql (U) Normal mg/dl Normal [facility] Work Phone: CMPon 12-07-2020 A:G RATIO 1.08 Low 1.1-2.5 [facility] Comment on above: Performed By: #### L 304.0470, L100.0040, L100.0005 #### [facility] [address] [place] [address] 26842 Albumin [Mass/Vol] 4.0 g/dL Normal 3.5-5.2 [facility] Comment on above: Performed By: #### L 304.0470, L100.0040, L100.0005 #### [facility] - [facility] [address] [place] [address] 28593 ALK. PHOS 43 U/L Normal 35-105 [facility] Comment on above: Performed By: #### L 304.0470, L100.0040, L100.0005 #### [facility] [address] [place] [address] 53770 ALT [Catalytic activity/Vol] 30 U/L Normal 5-33 [facility] Comment on above: Performed By: #### L 304.0470, L100.0040, L100.0005 #### [facility] - [facility] [address] [place] [address] 99521 Anion gap [Moles/Vol] 17.1 mmol/L Normal 15-22 [facility] Comment on above: Performed By: #### L 304.0470, L100.0040, L100.0005 #### [facility] - [facility] [address] [place] [address] 66718 AST [Catalytic activity/Vol] 26 U/L Normal 5-32 [facility] Comment on above: Performed By: #### L 304.0470, L100.0040, L100.0005 #### [facility] - [facility] [address] [place] [address] 79508 Bilirubin [Mass/Vol] 0.3 mg/dL Normal 0.2-1.2 [facility] Comment on above: Performed By: #### L 304.0470, L100.0040, L100.0005 #### [facility] - [facility] [address] [place] [address] 19088 Calcium [Mass/Vol] 9.9 mg/dL Normal 8.8-10.2 [facility] Comment on above: Performed By: #### L 304.0470, L100.0040, L100.0005 #### - LABORATORY [address] [place] [address] 07725 Chloride [Moles/Vol] 106 mmol/L Normal 98-107 [facility] Comment on above: Performed By: #### L 304.0470, L100.0040, L100.0005 #### [facility] - [facility] [address] [place] [address] 31210 CO2 [Moles/Vol] 23 mmol/L Normal 22-29 [facility] Comment on above: Performed By: #### L 304.0470, L100.0040, L100.0005 #### [facility] - [facility] [address] [place] [address] 18010 Creatinine [Mass/Vol] 0.98 mg/dL High 0.50-0.90 [facility] Comment on above: Performed By: #### L 304.0470, L100.0040, L100.0005 #### [facility] [address] [place] [address] 52295 eGFR if AFR PINEDA > 60 ml/min/1.73m2 Normal U [facility] Comment on above: Result Comment: eGFR >= 60 Indicates normal kidney function. * eGFR IS AN ESTIMATE * (AFR PINEDA = ) (non-AFR AM = NON-) MDRD calculation used in the eGFR should not be used to dose medications. For further limitations of the eGFR please refer to the Physician Website or the National Kidney Disease Education Program website (www.nkdep.nih.gov). Performed By: #### L 304.0470, L100.0040, L100.0005 #### [facility] [address] [place] [address] 67579 eGFR nonAFR Pineda 55 Normal [facility] Comment on above: Performed By: #### L 304.0470, L100.0040, L100.0005 #### [facility] [address] [place] [address] 17876 Globulin (S) [Mass/Vol] 3.7 g/dL Normal 1.5-4.5 [facility] Comment on above: Performed By: #### L 304.0470, L100.0040, L100.0005 #### [facility] [address] [place] [address] 90969 Glucose [Mass/Vol] 166 mg/dL High 82-115 [facility] Comment on above: Performed By: #### L 304.0470, L100.0040, L100.0005 #### [facility] [address] [place] [address] 33613 Potassium [Moles/Vol] 4.1 mmol/L Normal 3.5-5.0 [facility] Comment on above: Performed By: #### L 304.0470, L100.0040, L100.0005 #### [facility] - LABORATORY [address] [place] [address] Protein [Mass/Vol] 7.7 g/dL Normal 6.4-8.3 [facility] Comment on above: Performed By: #### L 304.0470, L100.0040, L100.0005 #### [facility] - LABORATORY [address] [place] [address] Sodium [Moles/Vol] 142 mmol/L Normal 135-145 [facility] Comment on above: Performed By: #### L 304.0470, L100.0040, L100.0005 #### [facility] - LABORATORY [address] [place] [address] Urea nitrogen [Mass/Vol] 26 mg/dL High 8-23 [facility] Comment on above: Performed By: #### L 304.0470, L100.0040, L100.0005 #### [facility] - [facility] [address] [place] [address] 24559 ECHO COMPLETEon 12-07-2020 [place] [address] HEALTH INFORMATION MANAGEMENT CARDIOLOGY REPORT Patient: TARIK BAKER,ANNE Niño D.O. [id number] [age] F Status: DIS Oneal SDCENTRAL 2069- Exam # Type/Exam [id number] CARD / ECHO COMPLETE DATE OF SERVICE: 12/07/2020 PROCEDURE: Echocardiogram. HEIGHT: 65. WEIGHT: 177. BLOOD PRESSURE: 150/70. INDICATION: Blood pressure. 2D/M-MODE MEASUREMENTS: 1. Septum 1.0. 2. Posterior wall 1.0. 3. End-diastole 4.8. 4. End-systole 2.9. 5. Left atrial size 3.6. 6. Aortic root 2.2. FINDINGS: 1. The patient is noted to be in atrial fibrillation with occasional PVCs. 2. Left ventricle wall thickness is normal. Normal wall motion is seen. Ejection fraction 65%. 3. Left atrium is normal size. Not distended. 4. Right atrium and right ventricle normal. 5. Pulmonic valve is not well seen. 6. Tricuspid valve is not well seen except the apical 4-chamber view. No signs of regurgitation. 7. PA pressure could not be estimated secondary to lack of tricuspid regurgitation. 8. No extracardiac masses. 9. No intracardiac masses. 10. Ascending aorta normal. 11. Reversal of E to A ratio consistent with diastolic dysfunction. CONCLUSION: Echocardiogram demonstrates normal wall thickness. Normal wall motion. Ejection fraction 65%. Diastolic dysfunction is seen. Valvular function appears to be normal. Report#: Dict ID [id number] / Int ID [id number] 12/08/20 0720 ANNE CRISOSTOMO D.O. cc: ELMER HOBSON << Signature on File>> Reported By: ANNE CRISOSTOMO D.O. Signed By: ANNE CRISOSTOMO D.O. Tests performed at: [place] [address] Normal [facility] GLUCOSE FSon 12-07-2020 Glucose [Mass/Vol] 235 mg/dL High 70110 [facility] Comment on above: Performed By: #### L 304.0470, L100.0040, L100.0005 #### [facility] [address] [place] [address] 89444 Glucose [Mass/Vol] 248 mg/dL High 70110 [facility] Comment on above: Performed By: #### L 304.0470, L100.0040, L100.0005 #### [facility] [address] [place] [address] 05809 Glucose [Mass/Vol] 144 mg/dL High 70110 [facility] Comment on above: Performed By: #### L 100.0070 #### [facility] [address] [place] [address] 62778 NM BRENNA SPECT MULTI [id number] 12-07-2020 NM BRENNA SPECT MULTI [id number] [address] Name: TARIK BAKER Phys: ANNE CRISOSTOMO D.O. : [birth year] Age: 75 Sex: F Acct: [id number] Loc: [facility]CENTRAL Exam Date: 12/07/20 Status: ADM Oneal Radiology No.: [id number] Unit Number: [id number] Exam # Type/Exam [id number] NM / NM BRENNA SPECT MULTI [id number] EXAMINATION: CARDIAC SPECT12/07/2020 12:35 pm CARDIAC SPECT NM MYOCARDIAL SPECT STRESS/REST TECHNIQUE: Radiopharmaceutical stress: Technetium 99m Tagged Sestamibi IV 26 mCu. Radiopharmaceutical rest: Technetium 99m Tagged Sestamibi IV 9.7 mCu. Lexiscan dose IV 0.4 mg. SPECT acquisition. SPECT reconstruction and reorientation of images into short axis and horizontal and vertical long axis planes. Quantitative LVEF assessment. patient was not able to lie prone. COMPARISON: None HISTORY: Chest pain. FINDINGS: The LEFT ventricular chamber size is normal and there is no transient ischemic dilatation. There are no fixed or reversible perfusion defects. Myocardial contractility and wall motion are normal. The LEFT ventricular ejection fraction is calculated at 60 %. IMPRESSION: Normal myocardial perfusion study. Electronically signed By Juan Bull 12/07/2020 12:44:32 PM EST Workstation ID : [id number] < > Reported By: JUAN BULL M.D. Signed In Fluency By: JUAN BULL M.D. << Signature on File>> Reported By: JUAN BULL M.D. Signed By: JUAN BULL M.D. Tests performed at: [place] [address] Normal [facility] NUCLEAR STRESS TEST(Wt < 440 #)on 12-07-2020 NUCLEAR STRESS TEST(Wt < 440#) [place] [address] HEALTH INFORMATION MANAGEMENT CARDIOLOGY REPORT Patient: TARIK BAKER ANNE CRISOSTOMO D.O. [id number] [age] F Status: DIS Oneal SDCENTRAL Exam # Type/Exam [id number] CARD / NUCLEAR STRESS TEST(Wt < 440#) DATE OF SERVICE: 12/07/2020 PROCEDURE: Lexiscan stress test. INDICATION: Abnormal EKG, atypical chest pain. PROTOCOL: Lexiscan. HEMODYNAMICS: Resting blood pressure 159/84, resting heart rate 90. Golden blood pressure 146/80, golden heart rate 112. EKG: Sinus rhythm. PVCs. No further ST and T-wave changes appreciated. CONCLUSION: The patient completed Lexiscan 0.4 mg in 10 seconds. EKG was equivocal. Hemodynamic response was normal. Await nuclear report. Report#: Dict ID [id number] / Int ID [id number] 12/12/20 0631 ANNE CRISOSTOMO D.O. cc: ANNE CRISOSTOMO D.O. << Signature on File>> Reported By: ANNE CRISOSTOMO D.O. Signed By: ANNE CRISOSTOMO D.O. Tests performed at: [place] [id number] Normal [facility] PTon 12-07-2020 INR Coag (PPP) [Relative time] 1.0 {INR} Normal 0.8-1.1 [facility] Comment on above: Result Comment: CO UMADIN PROTOCOLS INR values are generated for use in patients on coumadin. INR values stabilize 7 days after the start of coumadin or changes in coumadin dosage. The usual TARGET/INR range is: INDICATION INR RANGE Prophylaxis/treatment of: Venous Thrombosis, Pulmonary Embolism 2.0-3.0 Prevention of systemic embolism from: Tissue heart valves 2.0-3.0 Acute myocardial infarction (to prevent systemic embolism) 2.0-3.0 AMI (to prevent recurrent MO) 2.5-3.5 Valvular heart disease 2.0-3.0 Atrial fibrillation 2.0-3.0 Mechanical prosthetic valves (high risk) 2.5-3.5 Bileaflet mechanical valve in aortic position 2.0-3.0 Presence of Lupus Anticoagulant or Antiphospholipid Antibodies 2.5-3.5 PANIC VALUE: GREATER THAN OR EQUAL TO 4.5 Performed By: #### L 304.0470, L100.0040, L100.0005 #### [facility] [address] [place] [address] PT Coag (PPP) [Time] 12.0 s Normal 9.4-12.5 [facility] Comment on above: Performed By: #### L 304.0470, L100.0040, L100.0005 #### [facility] - [facility] [address] [place] [address] 22984 PTTon 12-07-2020 aPTT Coag (Bld) [Time] 29.6 s Normal 25.1-36.5 [facility] Comment on above: Result Comment: Hepa rin Protocol Therapeutic Range = 54.0-90.0 secs Performed By: #### L 304.0470, L100.0040, L100.0005 #### [facility] - [facility] [address] [place] [address] 41929 TROPONIN Ton 12-07-2020 Troponin T.cardiac [Mass/Vol] 0.135 ug/L Critically high 0-0.010 [facility] Comment on above: Result Comment: NOTE : * Results of 0.011 - 0.099 ng/mL are defined as indeterminate. Results of >/= 0.100 ng/mL are defined as positive. *Indeterminate value is considered an abnormal value and indicative of myocardial damage. This may or may not be secondary to myocardial ischemia or myocardial necrosis(AMI). Serial testing of troponin, clinical correlation, including EKG or imaging studies, and risk stratification is additionally required. Source: WHO criteria cutoff for myocardial necrosis(AMI). Performed By: #### L 304.0470, L100.0040, L100.0005 #### [facility] [address] [place] [address] 83672 Troponin T.cardiac [Mass/Vol] 0.126 ug/L Critically high 0-0.010 [facility] Comment on above: Result Comment: NOTE : * Results of 0.011 - 0.099 ng/mL are defined as indeterminate. Results of >/= 0.100 ng/mL are defined as positive. *Indeterminate value is considered an abnormal value and indicative of myocardial damage. This may or may not be secondary to myocardial ischemia or myocardial necrosis(AMI). Serial testing of troponin, clinical correlation, including EKG or imaging studies, and risk stratification is additionally required. Source: WHO criteria cutoff for myocardial necrosis(AMI). Performed By: #### L 304.0470, L100.0040, L100.0005 #### - LABORATORY [address] [place] [address] [facility] 12-06-2020 Anion gap [Moles/Vol] 16.3 mmol/L Normal 15-22 [facility] Comment on above: Performed By: #### M 500.0020 #### [place] [address] Calcium [Mass/Vol] 9.6 mg/dL Normal 8.8-10.2 [facility] Comment on above: Performed By: #### M 500.0020 #### [place] [address] Chloride [Moles/Vol] 104 mmol/L Normal 98-107 [facility] Comment on above: Performed By: #### M 500.0020 #### [place] [address] CO2 [Moles/Vol] 21 mmol/L Low 22-29 [facility] Comment on above: Performed By: #### M 500.0020 #### [place] [address] Creatinine [Mass/Vol] 1.03 mg/dL High 0.50-0.90 [facility] Comment on above: Performed By: #### M 500.0020 #### [place] [address] eGFR if AFR PINEDA > 60 ml/min/1.73m2 Normal [facility] Comment on above: Result Comment: eGFR >= 60 Indicates normal kidney function. * eGFR IS AN ESTIMATE * (AFR PINEDA = ) (non-AFR AM = NON-) MDRD calculation used in the eGFR should not be used to dose medications. For further limitations of the eGFR please refer to the Physician Website or the National Kidney Disease Education Program website (www.nkdep.nih.gov). Performed By: #### M 500.0020 #### [place] [address] eGFR nonAFR Pineda 52 [facility] Comment on above: Performed By: #### M 500.0020 #### [place] [address] Glucose [Mass/Vol] 131 mg/dL High 82-115 [facility] Comment on above: Performed By: #### M 500.0020 #### [place] [address] Potassium [Moles/Vol] 4.3 mmol/L Normal 3.5-5.0 [facility] Comment on above: Performed By: #### M 500.0020 #### [place] [address] Sodium [Moles/Vol] 137 mmol/L Normal 135-145 [facility] Comment on above: Performed By: #### M 500.0020 #### [place] [address] Urea nitrogen [Mass/Vol] 34 mg/dL High 8-23 [facility] Comment on above: Performed By: #### M 500.0020 #### [place] [address] Blood Cultureon 12-06-2020 Bacteria identified Cx Nom (Bld) Final report No aerobic or anaerobic growth in five days. Performed at: - [facility] [id number] [employer]: Rickie Ballard PhD, Phone: [phone] [facility] Comment on above: Performed By: #### M 500.0020 #### [place] [address] CBCon 12-06-2020 BASO# 0.00 x10(3) Normal 0.00-0.10 [facility] Comment on above: Performed By: #### L 304.0470, L100.0040, L100.0005 #### [facility] - [facility]AT[facility] [address] [place] [address] 61584 Basophils/100 WBC (Bld) 0.8 % Normal 0.0-1.0 [facility] Comment on above: Performed By: #### L 304.0470, L100.0040, L100.0005 #### [facility] - LABORATORY [address] [place] [address] EOS# 0.20 x10(3) Normal 0.00-0.54 [facility] Comment on above: Performed By: #### L 304.0470, L100.0040, L100.0005 #### - LABORATORY [address] [place] [address] 67592 Eosinophils/100 WBC (Bld) 3.5 % Normal 0.5-4.9 [facility] Comment on above: Performed By: #### L 304.0470, L100.0040, L100.0005 #### [facility] - [facility] [address] [place] [address] 24253 Erythrocyte distribution width (RBC) [Ratio] 13.4 % Normal 12.5-15.7 [facility] Comment on above: Performed By: #### L 304.0470, L100.0040, L100.0005 #### [facility] [address] [place] [address] 77412 Hematocrit (Bld) [Volume fraction] 35.6 % Low 36.0-48.0 [facility] Comment on above: Performed By: #### L 304.0470, L100.0040, L100.0005 #### [facility] [address] [place] [address] 83008 Hemoglobin (Bld) [Mass/Vol] 12.1 g/dL Normal 12.0-16.0 [facility] Comment on above: Performed By: #### L 304.0470, L100.0040, L100.0005 #### [facility] [address] [place] [address] 96664 LYMPH# 1.50 x10(3) Normal 1.00-3.50 [facility] Comment on above: Performed By: #### L 304.0470, L100.0040, L100.0005 #### [facility] [address] [place] [address] 11408 Lymphocytes/100 WBC (Bld) 28.6 % Normal 16.0-48.0 [facility] Comment on above: Performed By: #### L 304.0470, L100.0040, L100.0005 #### [facility] [address] [place] [address] 78269 MCH (RBC) [Entitic mass] 32.5 pg Normal 28.5-32.9 [facility] Comment on above: Performed By: #### L 304.0470, L100.0040, L100.0005 #### - LABORATORY [address] [place] [address] 30671 MCHC (RBC) [Mass/Vol] 33.9 g/dL Normal 33.0-36.0 [facility] Comment on above: Performed By: #### L 304.0470, L100.0040, L100.0005 #### [facility] - [facility] [address] [place] [address] 41441 MCV (RBC) [Entitic vol] 95.9 fL Normal 80.0-99.0 [facility] Comment on above: Performed By: #### L 304.0470, L100.0040, L100.0005 #### - LABORATORY [address] [place] [address] 47348 MONO# 0.60 x10(3) Normal 0.30-0.80 [facility] Comment on above: Performed By: #### L 304.0470, L100.0040, L100.0005 #### [facility] [address] [place] [address] 20040 Monocytes/100 WBC (Bld) 11.4 % High 4.3-11.2 [facility] Comment on above: Performed By: #### L 304.0470, L100.0040, L100.0005 #### - LABORATORY [address] [place] [address] 98459 NEUT# 3.00 x10(3) Normal 1.40-6.50 [facility] Comment on above: Performed By: #### L 304.0470, L100.0040, L100.0005 #### [facility] [address] [place] [address] 64824 Neutrophils/100 WBC (Bld) 55.7 % Normal 45.0-73.0 [facility] Comment on above: Performed By: #### L 304.0470, L100.0040, L100.0005 #### [facility] - [facility] [address] [place] [address] 55540 Platelet mean volume (Bld) [Entitic vol] 8.5 fL Normal 7.5-9.5 [facility] Comment on above: Performed By: #### L 304.0470, L100.0040, L100.0005 #### [facility] - [facility] [address] [place] [address] 16265 PLT 227 X10(3) Normal 150-450 [facility] Comment on above: Performed By: #### L 304.0470, L100.0040, L100.0005 #### [facility] - [facility] [address] [place] [address] 59076 RBC 3.71 x10(6) Normal 3.30-5.00 [facility] Comment on above: Performed By: #### L 304.0470, L100.0040, L100.0005 #### [facility] - [facility] [address] [place] [address] 15023 WBC 5.4 x10(3) Normal 4.5-10.0 [facility] Comment on above: Performed By: #### L 304.0470, L100.0040, L100.0005 #### - LABORATORY [address] [place] [address] 80183 CHEST-ONE VIEW ONLY - CXR1on 12-06-2020 CHEST-ONE VIEW ONLY - CXR1 [address] [address] Name: TARIK BAKER Phys: ROMELIA KNIGHT D.O. : [birth year] Age: 75 Sex: F Acct: [id number] Loc: ED Exam Date: 12/06/20 Status: REG ER Radiology No.: [id number] Unit Number: [id number] Exam # Type/Exam [id number] RAD / CHEST-ONE VIEW ONLY - CXR1 EXAMINATION: ONE XRAY VIEW OF THE CHEST 12/06/2020 6:00 pm COMPARISON: None. HISTORY: Hypertension. FINDINGS: The heart size is within normal limits. Atherosclerosis present of the thoracic aorta. And there are streaky opacities of the right infrahilar region. No dense focal consolidations are evident. There is mild coarsening of the interstitium without florid vascular congestion. No evident pleural effusion or pneumothorax is seen. Left pulmonary hilar prominence may reflect a vascular etiology, not definitively characterized. IMPRESSION: 1. Right infrahilar subsegmental atelectasis and/or developing airspace disease. Electronically signed By Alli Reyes 12/06/2020 6:57:59 PM EST Workstation ID : [id number] < > Reported By: ALLI REYES D.O. Signed In Fluency By: ALLI REYES D.O. << Signature on File>> Reported By: ALLI REYES D.O. Signed By: ALLI REYES D.O. Tests performed at: [place] [address] Normal [facility] CPKon 12-06-2020 CPK 316 U/L High 26-192 [facility] Comment on above: Performed By: #### M 500.0020 #### [place] [address] ELECTROCARDIOGRAMon 12-07-19 21 [place] [address] HEALTH INFORMATION MANAGEMENT ELECTROCARDIOGRAM REPORT Patient: TARIK BAKER Ordering: ROMELIA KNIGHT D.O. [id number] [age] F Exam Date: 12/06/20 Report #: [id number] Status: REG ER ED SINUS RHYTHM WITH OCCASIONAL VENTRICULAR PREMATURE COMPLEXES POSSIBLE LEFT ATRIAL ENLARGEMENT Physician Mold Design Engineer: ROMELIA KNIGHT D.O. Ventricular Rate EK /min R-R Interval: 696 ms P Wave duration: 130 ms QRS duration: 110 ms P-R interval: 149 ms Q-T interval: 380 ms Q-T interval (corrected): 426 ms Q-T Dispersion: ms P wave axis: 49 deg QRS axis: -12 deg T axis: 4 deg Signed in PYRAMIS 12/06/20 1811 ROMELIA KNIGHT D.O. cc: << Signature on File>> Reported By: ROMELIA KNIGHT D.O. Signed By: ROMELIA KNIGHT D.O. Tests performed at: [place] [id number] [place], [place] [address] Normal [facility] EMERGENCY DEPARTMENT REPORTo n 12-06-2020 [place]ER[place]ENCY [place] [address] HEALTH INFORMATION MANAGEMENT EMERGENCY DEPARTMENT REPORT Patient: TARIK BAKER ROMELIA KNIGHT D.O. [id number] [age] F Status: ADM Oneal SDCENTRAL 2069- Date of Service: 12/06/20 TIME SEEN: 1705 hours. CHIEF COMPLAINT: Dizzy spells and hypertension. HISTORY OF CHIEF COMPLAINT: This is a 75-year-old female. She came in because for the last 3 days she has been having episodes of dizziness like she feels like she is going to pass out. She says she has not passed out. She denies any chest pain with this, but she says she feels dizzy like she is going to pass out, she has not passed out. She said again no chest pain, no cough, no fever , she just gets these lightheaded spells. PAST MEDICAL HISTORY: Significant for diabetes and hypothyroid. PAST SURGICAL HISTORY: She has had a tubal. SOCIAL HISTORY: She does not smoke, does not drink, does not do drugs. REVIEW OF SYSTEMS: No headaches, blurred vision, sore throat, or neck pain. She is not having any chest pain associated with this. She gets these dizzy lightheaded spells, not like the room is spinning. She says she is having no abdominal pain, no vomiting or diarrhea, and then when she was having the spells she checked her blood pressure it was elevated so she got a cuff and she has been checking her blood pressure at home which has been high and that got her very worried. She has had no headaches associated with it. She said she has no weakness in any of the extremities. 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 The patient's 10-point review of systems otherwise negative. PHYSICAL EXAMINATION: GENERAL: She is awake, alert, and oriented x3, in no acute distress. Appears to be well hydrated and well nourished. HEENT: The patient's trachea is midline. There is no JVD. HEART: Regular rate and rhythm. LUNGS: Clear bilaterally. ABDOMEN: Soft and nontender with normoactive bowel sounds. EXTREMITIES: Less than 2 second cap refill. SKIN: Without rashes. Negative Homans. NEUROLOGIC: No focal deficits. Strength 5/5. EMERGENCY DEPARTMENT COURSE: EKG showed a sinus rhythm with a PVC, some nonspecific ST wave changes. The patient's lab work today though has a white count of 5.4 with hemoglobin of 12.1. Chemistry; sodium 137, potassium 4.3, chloride 104, bicarb 21 with a BUN of 34, creatinine 1.03, glucose 131. The patient has an elevated troponin of 0.117. Lactate is normal at 0.9. The patient's urine is infected with greater than 30 to 40 wbc's. COVID has not been received yet and the patient's chest x-ray was read as possible right infrahilar pneumonia, atelectasis versus airspace disease. At this time, she does not have any respiratory symptoms, she does not have a cough or fever. At this time, I think she is going to need to come in for further workup. The patient is without significantly elevated troponin. She certainly has a UTI. I gave her Rocephin and Zithromax to cover for possible pneumonia as well as a urinary tract infection. We sent some blood cultures on her. She is not hypotensive at all. I do not believe her to be septic. The patient is going to be admitted to the hospitalist service. I talked with Dr. Meyer, however, he said before we admitted the patient he wanted to get a repeat troponin on the patient, so a delta troponin has been drawn. IMPRESSION: 1. Elevated troponin. 2. Urinary tract infection. 3. Near syncope. Report#: Dict ID [id number] / Int ID [id number] 12/07/20 0046 _ ROMELIA KNIGHT D.O. cc: ROMELIA KNIGHT D.O.; No Physician << Signature on File>> Reported By: ROMELIA KNIGHT D.O. Signed By: CURRENT,ROMELIA S D.O. Tests performed at: [facility] [address] [place], [place] [address] Normal [facility] HEPATIC PANELon 12-06-2020 A:G RATIO 1.11 Normal 1.1-2.5 [facility] Comment on above: Performed By: #### M 500.0020 #### [place] [address] Albumin [Mass/Vol] 4.0 g/dL Normal 3.5-5.2 [facility] Comment on above: Performed By: #### M 500.0020 #### [place] [address] ALK. PHOS 43 U/L Normal 35-105 [facility] Comment on above: Performed By: #### M 500.0020 #### [place] [address] ALT [Catalytic activity/Vol] 30 U/L Normal 5-33 [facility] Comment on above: Performed By: #### M 500.0020 #### [place] [address] AST [Catalytic activity/Vol] 26 U/L Normal 5-32 [facility] Comment on above: Performed By: #### M 500.0020 #### [place] [address] Bilirubin [Mass/Vol] mg/dL Normal 0.2-1.2 [facility] Comment on above: Performed By: #### M 500.0020 #### [place] [address] DIRECT BILIRUBI <0.2 Normal 0.0-0.3 [facility] Comment on above: Performed By: #### M 500.0020 #### [place] [address] Globulin (S) [Mass/Vol] 3.6 g/dL Normal 1.5-4.5 [facility] Comment on above: Performed By: #### M 500.0020 #### [place] [address] Protein [Mass/Vol] 7.6 g/dL Normal 6.4-8.3 [facility] Comment on above: Performed By: #### M 500.0020 #### [place] [address] LACTIC ACIDon 12-06-2020 Lactate [Moles/Vol] 0.9 mmol/L Normal 0.5-2.0 [facility] Comment on above: Performed By: #### L 100.0440 #### ML - LABORATORY [address] [place] [address] PRO-BNPon 12-06-2020 Natriuretic peptide B (Bld) [Mass/Vol] 177 pg/mL Normal [facility] Comment on above: Result Comment: HF U NLIKELY: NT-PRO BNP <300 pg/mL HF LIKELY: NT-PRO BNP >450 pg/mL (AGE <50) NT-PRO BNP >900 pg/mL (AGE 50-75) NT-PRO BNP >1800 pg/mL (AGE >75) HF VERY LIKELY: NT-PRO BNP >10,000 pg/mL SOURCE: PRIDE ALGORITHM FOR PRO-BNP; CRITICAL PATHWAYS IN CARDIOLOGY VOLUME 3, NUMBER 4; APRIL 2004 Performed By: #### L 304.0470, L100.0040, L100.0005 #### ML - LABORATORY [address] [place] [address] PROCALCITONINon 12-06-2020 PROCALCITONIN 0.07 ng/mL Normal 0.02-0.09 [facility] Comment on above: Performed By: #### L 304.0470, L100.0040, L100.0005 #### ML - LABORATORY [address] [place] [address] RAPID COVIDon 12-06-2020 SARS-CoV-2 (COVID-19) RNA STEPHANIE+probe Ql (Unsp spec) Negative Normal NEGATIVE [facility] Comment on above: Result Comment: THIS TEST HAS BEEN AUTHORIZED BY FDA UNDER AN EMERGENCY USE AUTHORIZATION (EUA). NEGATIVE: NEGATIVE FOR COVID19 (SARS-CoV-2) BY PCR POSITIVE: POSITIVE FOR COVID19 (SARS-CoV-2) BY PCR PRESUMPTIVE POSITIVE: POSITIVE BY SINGLE RAMEY SARS-CoV TARGET. SARS-CoV-1 CANNOT BE EXCLUDED, BUT IS NOT CURRENTLY CIRCULATING IN [place]. Performed By: #### L 304.0470, L100.0040, L100.0005 #### ML - LABORATORY [address] [place] [address] TROPONIN Ton 12-06-2020 Troponin T.cardiac [Mass/Vol] 0.131 ug/L Critically high 0-0.010 [facility] Comment on above: Result Comment: NOTE : * Results of 0.011 - 0.099 ng/mL are defined as indeterminate. Results of >/= 0.100 ng/mL are defined as positive. *Indeterminate value is considered an abnormal value and indicative of myocardial damage. This may or may not be secondary to myocardial ischemia or myocardial necrosis(AMI). Serial testing of troponin, clinical correlation, including EKG or imaging studies, and risk stratification is additionally required. Source: WHO criteria cutoff for myocardial necrosis(AMI). Performed By: #### L 301.0120 #### ML [facility] [address] [place] [address] Troponin T.cardiac [Mass/Vol] 0.121 ug/L Critically high 0-0.010 [facility] Comment on above: Result Comment: NOTE : * Results of 0.011 - 0.099 ng/mL are defined as indeterminate. Results of >/= 0.100 ng/mL are defined as positive. *Indeterminate value is considered an abnormal value and indicative of myocardial damage. This may or may not be secondary to myocardial ischemia or myocardial necrosis(AMI). Serial testing of troponin, clinical correlation, including EKG or imaging studies, and risk stratification is additionally required. Source: WHO criteria cutoff for myocardial necrosis(AMI). Performed By: #### L 304.0470, L100.0040, L100.0005 #### ML - LABORATORY [address] [place] [address] Troponin T.cardiac [Mass/Vol] 0.117 ug/L Critically high 0-0.010 [facility] Comment on above: Result Comment: NOTE : * Results of 0.011 - 0.099 ng/mL are defined as indeterminate. Results of >/= 0.100 ng/mL are defined as positive. *Indeterminate value is considered an abnormal value and indicative of myocardial damage. This may or may not be secondary to myocardial ischemia or myocardial necrosis(AMI). Serial testing of troponin, clinical correlation, including EKG or imaging studies, and risk stratification is additionally required. Source: WHO criteria cutoff for myocardial necrosis(AMI). Performed By: #### M 500.0020 #### [place] [address] UA W/C&Son 12-06-2020 Bilirubin Ql (U) Negative Normal NEGATIVE [facility] Comment on above: Order Comment: Urine Specimen Source+ CLEAN CATCH Performed By: #### L 200.3190, L200.3001 #### ML - LABORATORY [address] [place] [address] Color (U) YELLOW Normal YELLOW [facility] Comment on above: Order Comment: Urine Specimen Source+ CLEAN CATCH Performed By: #### L 200.3190, L200.3001 #### ML - LABORATORY [address] [place] [address] Glucose Ql (U) Negative Normal NEGATIVE [facility] Comment on above: Order Comment: Urine Specimen Source+ CLEAN CATCH Performed By: #### L 200.3190, L200.3001 #### ML - [facility] [address] [place] [address] Hemoglobin Ql (U) TRACE-LYSED Normal NEGATIVE [facility] Comment on above: Order Comment: Urine Specimen Source+ CLEAN CATCH Performed By: #### L 200.3190, L200.3001 #### [facility] - [facility] [address] [place] [address] Leukocyte esterase Test strip Ql (U) LARGE Normal NEGATIVE [facility] Comment on above: Order Comment: Urine Specimen Source+ CLEAN CATCH Performed By: #### L 200.3190, L200.3001 #### [facility] - [facility] [address] [place] [address] Nitrite Ql (U) Negative Normal NEGATIVE [facility] Comment on above: Order Comment: Urine Specimen Source+ CLEAN CATCH Performed By: #### L 200.3190, L200.3001 #### ML - LABORATORY [address] [place] [address] pH (U) 6.5 [pH] Normal 5.0-8.0 [facility] Comment on above: Order Comment: Urine Specimen Source+ CLEAN CATCH Performed By: #### L 200.3190, L200.3001 #### ML - LABORATORY [address] [place] [address] Protein Ql (U) Negative Normal NEGATIVE [facility] Comment on above: Order Comment: Urine Specimen Source+ CLEAN CATCH Performed By: #### L 200.3190, L200.3001 #### ML - LABORATORY [address] [place] [address]690 URINE APPEARANC SLIGHTLY CLOUDY Normal CLEAR Unio [facility] Comment on above: Order Comment: Urine Specimen Source+ CLEAN CATCH Performed By: #### L 200.3190, L200.3001 #### ML - LABORATORY [address] [place] [address] URINE KETONE Negative Normal NEGATIVE [facility] Comment on above: Order Comment: Urine Specimen Source+ CLEAN CATCH Performed By: #### L 200.3190, L200.3001 #### ML - LABORATORY [address] [place] [address]286 URINE SPECIFIC <=1.005 Normal 1.001-1.035 [facility] Comment on above: Order Comment: Urine Specimen Source+ CLEAN CATCH Performed By: #### L 200.3190, L200.3001 #### ML - LABORATORY [address] [place] [address]8765 URINE UROBILINO 0.2 EU/DL Normal 0.2-1.0 [facility] Comment on above: Order Comment: Urine Specimen Source+ CLEAN CATCH Performed By: #### L 200.3190, L200.3001 #### ML - LABORATORY [address] [place] [address] 60958 URINE CULTUREon 12-06-2020 Bacteria identified Cx Nom (U) Final report Greater than 100,000 colony forming units per mL Cefazolin <=4 ug/mL Cefazolin with an PATITO <=16 predicts susceptibility to the oral agents cefaclor, cefdinir, cefpodoxime, cefprozil, cefuroxime, cephalexin, and loracarbef when used for therapy of uncomplicated urinary tract infections due to E. coli, Klebsiella pneumoniae, and Proteus mirabilis. Escherichia coli S = Susceptible; I = Intermediate; R = Resistant P = Positive; N = Negative MICS are expressed in micrograms per mL Antibiotic RSLT#1 RSLT#2 RSLT#3 RSLT#4 Amoxicillin/Clavulan ic Acid S Ampicillin R Cefepime S Ceftriaxone S Cefuroxime S Ciprofloxacin R Ertapenem S Gentamicin S Imipenem S Levofloxacin I Meropenem S Nitrofurantoin S Piperacillin/Tazobac moulton S Tetracycline S Tobramycin S Trimethoprim/Sulfa S Performed at: [facility] [id number] [employer] Knitter: Rikcie Ballard PhD, Phone: [phone] [facility] Comment on above: Performed By: #### L 304.0470, L100.0040, L100.0005 #### ML - LABORATORY [address] [place] [address]271 URINE MICROSCOPon 12-06-2020 RBC (U) [#/Vol] 0 /uL Normal 0-2 [facility] Comment on above: Order Comment: Urine Specimen Source+ CLEAN CATCH Performed By: #### L 200.3190, L200.3001 #### ML - LABORATORY [address] [place] [address] SQUAMOUS RARE Normal [facility] Comment on above: Order Comment: Urine Specimen Source+ CLEAN CATCH Performed By: #### L 200.3190, L200.3001 #### ML - LABORATORY [address] [place] [address] 26070 URINE BACTERIA 2+ Normal NEGATIVE [facility] Comment on above: Order Comment: Urine Specimen Source+ CLEAN CATCH Performed By: #### L 200.3190, L200.3001 #### ML - LABORATORY [address] [place] [address]109 URINE WBC 30-40 Normal 0-5 [facility] Comment on above: Order Comment: Urine Specimen Source+ CLEAN CATCH Performed By: #### L 200.3190, L200.3001 #### ML - LABORATORY [address] [place] [address]58 HCV AB CONFIRMon 10-18-2020 Comment: [facility] Comment on above: Result Comment: Non reactive HCV antibody screen is consistent with no HCV infection, unless recent infection is suspected or other evidence exists to indicate HCV infection. Effective November 03, 2020, this panel will be made non- orderable as it no longer meets clinical guidelines for the detection of HCV infection. [facility] offers HCV Antibody with reflex to Quantitative real-time PCR (936166) and HCV Antibody with reflex to Qualitative STEPHANIE (917356) which align with current guidelines. Performed at: [address] [id number] [employer]: Rickie Ballard PhD, Phone: [phone] THIS IS A CORRECTED REPORT 10/18/20 0811: Comment: previously reported as: Performed By: #### Ivonne 500.0020 #### [place] [address] HCV AB <0.1 Normal 0.0-0.9 [facility] Comment on above: Result Comment: INFC E Result Units: s/co ratio Performed By: #### M 500.0020 #### [place] [address] CMPon 10-17-2020 A:G RATIO 1.16 Normal 1.1-2.5 [facility] Comment on above: Performed By: #### L 304.0470, L100.0040, L100.0005 #### ML - LABORATORY [address] [place] [address]157 Albumin [Mass/Vol] 4.2 g/dL Normal 3.5-5.2 [facility] Comment on above: Performed By: #### L 304.0470, L100.0040, L100.0005 #### [facility] [address] [place] [address] ALK. PHOS 44 U/L Normal 35-105 [facility] Comment on above: Performed By: #### L 304.0470, L100.0040, L100.0005 #### ML - LABORATORY [address] [place] [address]89 ALT [Catalytic activity/Vol] 33 U/L Normal 5-33 [facility] Comment on above: Performed By: #### L 304.0470, L100.0040, L100.0005 #### ML - LABORATORY [address] [place] [address] 88892 Anion gap [Moles/Vol] 13.4 mmol/L Low 15-22 [facility] Comment on above: Performed By: #### L 304.0470, L100.0040, L100.0005 #### - LABORATORY [address] [place] [address]671 AST [Catalytic activity/Vol] 30 U/L Normal 5-32 [facility] Comment on above: Performed By: #### L 304.0470, L100.0040, L100.0005 #### - LABORATORY [address] [place] [address]14 Bilirubin [Mass/Vol] 0.3 mg/dL Normal 0.2-1.2 [facility] Comment on above: Performed By: #### L 304.0470, L100.0040, L100.0005 #### - LABORATORY [address] [place] [address]118 Calcium [Mass/Vol] 9.5 mg/dL Normal 8.8-10.2 [facility] Comment on above: Performed By: #### L 304.0470, L100.0040, L100.0005 #### ML - LABORATORY [address] [place] [address]130 Chloride [Moles/Vol] 107 mmol/L Normal 98-107 [facility] Comment on above: Performed By: #### L 304.0470, L100.0040, L100.0005 #### ML - LABORATORY [address] [place] [address] 09868 CO2 [Moles/Vol] 28 mmol/L Normal 22-29 [facility] Comment on above: Performed By: #### L 304.0470, L100.0040, L100.0005 #### - LABORATORY [address] [place] [address]26 Creatinine [Mass/Vol] 1.06 mg/dL High 0.50-0.90 [facility] Comment on above: Performed By: #### L 304.0470, L100.0040, L100.0005 #### [facility] [address] [place] [address]7746 eGFR if AFR PINEDA > 60 ml/min/1.73m2 Normal [facility] Comment on above: Result Comment: eGFR >= 60 Indicates normal kidney function. * eGFR IS AN ESTIMATE * (AFR PINEDA = ) (non-AFR AM = NON-) MDRD calculation used in the eGFR should not be used to dose medications. For further limitations of the eGFR please refer to the Physician Website or the National Kidney Disease Education Program website (www.nkdep.nih.gov). Performed By: #### L 304.0470, L100.0040, L100.0005 #### [facility] [address] [place] [address] 33548 eGFR nonAFR Pineda 51 Normal [facility] Comment on above: Performed By: #### L 304.0470, L100.0040, L100.0005 #### [facility] [address] [place] [address]13 Globulin (S) [Mass/Vol] 3.6 g/dL Normal 1.5-4.5 [facility] Comment on above: Performed By: #### L 304.0470, L100.0040, L100.0005 #### [facility] [address] [place] [address] 35487 Glucose [Mass/Vol] 103 mg/dL Normal 82-115 [facility] Comment on above: Performed By: #### L 304.0470, L100.0040, L100.0005 #### ML - LABORATORY [address] [place] [address]37 Potassium [Moles/Vol] 4.4 mmol/L Normal 3.5-5.0 [facility] Comment on above: Performed By: #### L 304.0470, L100.0040, L100.0005 #### ML - LABORATORY [address] [place] [address] 46598 Protein [Mass/Vol] 7.8 g/dL Normal 6.4-8.3 [facility] Comment on above: Performed By: #### L 304.0470, L100.0040, L100.0005 #### ML - LABORATORY [address] [place] [address] 69666 Sodium [Moles/Vol] 144 mmol/L Normal 135-145 [facility] Comment on above: Performed By: #### L 304.0470, L100.0040, L100.0005 #### ML - LABORATORY [address] [place] [address] 68592 Urea nitrogen [Mass/Vol] 25 mg/dL High 8-23 [facility] Comment on above: Performed By: #### L 304.0470, L100.0040, L100.0005 #### ML - LABORATORY [address] [place] [address] SADEOVdharmesh 10-17-2020 CNOV Office Visit (MAURIWAUDRA) TARIK BAKER ([id number]) 1945 F Date Time Provider Department 10/17/20 9:20 AM KASSI YOUNG During your visit today, we recorded the following information about you: Temperature Pulse Respiration Blood pressure 97.2 degrees 55/minute 12/minute 130/90 Weight Height 90.3 kg 1.651 m Kassi Young MD 11/07/2020 9:10 PM [place] [address] SUBJECTIVE Tarik Baker is a 75 year old female who presents with Patient presents with: Hypothyroidism Hyperlipidemia Prescription Refills: did labs this am Diabetes Obesity Vit D Def . The patient feels her general health is good. She denies any high or low blood sugar symptoms. She rarely misses doses of her medication. She does not routinely check her blood pressure. Her weight has been stable. She denies any major new changes in breathing, digestion, heart beating, bowel or bladder function. There are no exam notes on file for this visit. HPI HPI Review of Systems Constitutional: Negative for chills, diaphoresis, fever, malaise/fatigue and weight loss. Eyes: Negative for blurred vision, double vision and redness. Respiratory: Negative for cough, shortness of breath and wheezing. Cardiovascular: Negative for chest pain, palpitations, orthopnea and leg swelling. Gastrointestinal: Negative for abdominal pain, blood in stool, constipation, diarrhea, heartburn, melena, nausea and vomiting. Genitourinary: Negative for frequency and urgency. Musculoskeletal: Negative for joint pain and myalgias. Skin: Negative for itching and rash. Neurological: Negative for tingling, sensory change and headaches. Endo/Heme/Allergies: Negative for polydipsia. Does not bruise/bleed easily. PAST MEDICAL HISTORY Diagnosis Date - Diabetes (HCC) PAST SURGICAL HISTORY Procedure Laterality Date - TUBAL LIGATION HX Social History Tobacco Use - Smoking status: Never Smoker - Smokeless tobacco: Never Used Vaping Use - Vaping Use: Never used Substance Use Topics - Alcohol use: Never - Drug use: Never FAMILY HISTORY Problem Relation Age of Onset - No Known Problems Mother - No Known Problems Father - No Known Problems Maternal Grandmother - No Known Problems Maternal Grandfather - No Known Problems Paternal Grandmother - No Known Problems Paternal Grandfather The ROS, medical, surgical, family, and social history were reviewed by Kassi Young MD ALLERGIES Allergen Reactions - Prednisone Other: See Comments Sugar went over 900 Other reaction(s): Other (See Comments) Sugar went over 900 Current Outpatient Medications Medication Sig - insulin NPH injection (HumuLIN N,NovoLIN N) Inject 27 Units subcutaneously twice daily. - aspirin-calcium carbonate 81 mg-300 mg calcium(777 mg) tab Take 81 mg by mouth once daily. - multivitamin with minerals (MULTIPLE VITAMINS 55 PLUS ORAL) Take 1 capsule by mouth once daily. - B tbmowq-Z-nebvw-zinc- cup pierce-E 500 mg-400 mcg- 23.9 mg-3 mg tab Take by mouth. - Ascorbic Acid (VITAMIN C) 100 mg tablet - ZINC ORAL Take by mouth. - ergocalciferol 50,000 unit capsule (VITAMIN D2, DRISDOL) Take 1 capsule by mouth one time a week. - levothyroxine (SYNTHROID) 150 mcg tablet Take 1 tablet by mouth once daily. - Fenofibrate (LOFIBRA) 160 mg tablet Take 1 tablet by mouth once daily. - sertraline (ZOLOFT) 100 mg tablet Take 1 tablet by mouth once daily. (Patient not taking: Reported on 10/17/2020 ) - Ascorbic Acid 100 mg tablet Take 500 mg by mouth once daily. (Patient not taking: Reported on 10/17/2020 ) - calcium carbonate/vitamin D2 (CALCIUM + VITAMIN D ORAL) (Patient not taking: Reported on 10/17/2020 ) No current facility-administere d medications for this visit. OBJECTIVE BP 130/90 (BP Site: Left Arm, BP Position: Sitting) Pulse (!) 55 Temp 36.2 ?C (97.2 ?F) Resp 12 Ht 5' 5 (1.651 m) Wt 199 lb (90.3 kg) SpO2 99% BMI 33.12 kg/m? BMI 33.12 kg/(m2) Physical Exam Vitals and nursing note reviewed. Constitutional: General: She is awake. She is not in acute distress. Appearance: Normal appearance. She is well-developed and well-groomed. She is obese. cachecticShe is not ill-appearing, toxic-appearing or diaphoretic. Interventions: She is not intubated. HENT: Head: Normocephalic and atraumatic. Salivary Glands: Right salivary gland is not diffusely enlarged or tender. Left salivary gland is not diffusely enlarged or tender. Right Ear: External ear normal. Left Ear: External ear normal. Mouth/Throat: Mouth: Mucous membranes are moist. Eyes: General: Lids are normal. Vision grossly intact. No scleral icterus. Right eye: No foreign body, discharge or hordeolum. Left eye: No foreign body, discharge or (more content not included)... Normal [facility] [id number] 10-17-2020 HbA1c (Bld) [Mass fraction] 7.8 % High 4.3-6.1 [facility] Comment on above: Result Comment: Estimated Average Glucose: HgbA1C % mg/dL 4.0 68 5.0 97 6.0 125 7.0 154 8.0 183 9.0 212 10.0 240 Source: [place] Di[employer] Association web site, 2017. Performed By: #### M 500.0020 #### [place] [address] LIPID PANELon 10-17-2020 Cholesterol [Mass/Vol] 147 mg/dL Normal 130-200 [facility] Comment on above: Performed By: #### L 304.0470, L100.0040, L100.0005 #### [facility] - LABORATORY [address] [place] [address] Cholesterol in HDL [Mass/Vol] 34 mg/dL Normal [facility] Comment on above: Result Comment: Tasha onal Cholesterol Education Program (NCEP) guidelines: <40 mg/dL: Low HDL-Cholesterol(major risk factor for CHD) > or = 60 mg/dL: High HDL-Cholesterol(negative risk factor for CHD) HDL-cholesterol is affected by a number of factors, e.g., smoking, exercise, hormones, sex, and age. 4th Generation Test; Results may be approximately 7% lower than previous values. Performed By: #### L 304.0470, L100.0040, L100.0005 #### [facility] - [facility] [address] [place] [address] Cholesterol in LDL [Mass/Vol] 83 mg/dL Normal [facility] Comment on above: Result Comment: LDL: OPTIMAL FOR PEOPLE AT VERY HIGH RISK <70 OPTIMAL <100 NEAR OPTIMAL 100-129 BORDERLINE HIGH 130-159 HIGH 160-189 VERY HIGH >=190 Source: 2008 NCEP ATP III, ADA Guidelines Reviewed: August, Performed By: #### L 304.0470, L100.0040, L100.0005 #### [facility] - [facility] [address] [place] [address] Cholesterol in VLDL [Mass/Vol] 30 mg/dL Normal 6-40 [facility] Comment on above: Performed By: #### L 304.0470, L100.0040, L100.0005 #### [facility] [address] [place] [address] LDL/HDL RATIO 2.4 Normal [facility] Comment on above: Performed By: #### L 304.0470, L100.0040, L100.0005 #### [facility] - [facility] [address] [place] [address] Triglyceride [Mass/Vol] 151 mg/dL Normal [facility] Comment on above: Result Comment: TRIG : DESIRABLE: <150 mg/dL Performed By: #### L 304.0470, L100.0040, L100.0005 #### [facility] [address] [place] [address] MICROALB/CREATon 10-17-2020 Creatinine [Mass/Vol] 79.5 mg/dL Normal 28-217 [facility] Comment on above: Performed By: #### M 500.0020 #### [place] [address] MICROALB./CREAT 65 mg/g High 0-30 [facility] Comment on above: Performed By: #### M 500.0020 #### [place] [address] MICROALBUMIN 52 mg/L High 0-20 [facility] Comment on above: Performed By: #### M 500.0020 #### [place] [address] VITAMIN Don 10-17-2020 VITAMIN D 36.7 ng/mL Normal 30-100 [facility] Comment on above: Performed By: #### L 304.0470, L100.0040, L100.0005 #### [facility] [address] [place] [address] OBSOLETEon 09-13-2020 OBSOLETE Refill (FPNEWPHILI) TARIK BAKER ([id number]) 1945 F Date Time Provider Department 09/13/20 KASSI YOUNGWAUDRA During your visit today, we recorded the following information about you: Madison Aragon 09/13/2020 11:41 AM Signed Pharmacy faxed requesting the following refill Refill(s) Requested: Pending Prescriptions Disp Refills LEVOTHYROXINE 150 MCG TABLET 30 tablet 0 Sig: Take 1 tablet by mouth once daily. MARIA INES: No ALLERGIES Allergen Reactions - Prednisone Other: See Comments Sugar went over 900 Other reaction(s): Other (See Comments) Sugar went over 900 (home) Last Office Visit Date: 06/21/2020 Last [facility] Visit: Visit date not found Future Appointment: 09/19/2020 The patients preferred pharmacy has been captured for this encounter? yes Request is for script(s) to be escript to pharmacy. Madison Aragon Allergies As of Date: 09/13/2020 Noted Allergy Reaction PREDNISONE 09/06/2015 14 - Other: See Comments Comments: Sugar went over 900 Other reaction(s): Other (See Comments) Sugar went over 900 Date Reviewed: 06/21/2020 Reviewed by: Kassi Young - Fully Assessed Reason for Visit: Refill Request [94] Visit Diagnosis:Hypothyroi dism, acquired [E03.9] Order(s):levothyroxi ne (SYNTHROID) 150 mcg tabletTake 1 tablet by mouth once daily.Disp: 30 tabletRfl: 0 Prescriptions as of 09/13/2020 Sig: LEVOTHYROXINE 150 MCG TABLET Take 1 tablet by mouth once d* FENOFIBRATE 160 MG TABLET Take 1 tablet by mouth once d* SERTRALINE 100 MG TABLET Take 1 tablet by mouth once d* INSULIN NPH ISOPHANE U-100 HU* Inject 27 Units subcutaneousl* ASPIRIN-CALCIUM CARBONATE 81 * Take 81 mg by mouth once anjelica* ASCORBIC ACID (VITAMIN C) 100* Take 500 mg by mouth once norris* MULTIPLE VITAMINS 55 PLUS ORAL Take 1 capsule by mouth once * CALCIUM + VITAMIN D ORAL B COMPLEX-C 500 MG-FOLIC 400 * Take by mouth. VITAMIN C 100 MG TABLET ZINC ORAL Take by mouth. ERGOCALCIFEROL (VITAMIN D2) 1* Take 1 capsule by mouth one t* Problem List As Of Date 09/13/2020 Noted Resolved Temporal arteritis (HCC) [M31.6] 09/06/2015 Type 2 diabetes mellitus with hyperglycemia (HC*09/06/2015 Diabetes (HCC) [E11.9] Hypothyroidism, acquired [E03.9] 06/21/2020 Hypertriglyceridemia [E78.1] 06/21/2020 Obesity, Class I, BMI 30-34.9 [E66.9] 06/21/2020 Vitamin D deficiency [E55.9] 06/21/2020 Prescriptions ordered this encounter Disp Refills Start End LEVOTHYROXINE 150 MCG TABLET 30 t* 0 09/13/2020 10/13/2020 Route: ORAL Sig: Take 1 tablet by mouth once daily. Medications Discontinued During This Encounter Prescriptions - levothyroxine (SYNTHROID) 150 mcg tablet (Discontinued) Take 1 tablet by mouth once daily. Encounter Status:Closed by KASSI YOUNG on 09/13/20 [facility] OBSOLETEon 07-25-2020 OBSOLETE Refill (FPNEWPHILI) TARIK BAKER ([id number]) 1945 F Date Time Provider Department 07/25/20 KASSI YOUNG During your visit today, we recorded the following information about you: Haley Green MA 07/25/2020 9:05 AM Signed Patient called requesting the following refill Refill(s) Requested: Pending Prescriptions Disp Refills FENOFIBRATE 160 MG TABLET 90 tablet 0 Sig: Take 1 tablet by mouth once daily. MARIA INES: No ALLERGIES Allergen Reactions - Prednisone Other: See Comments Sugar went over 900 Other reaction(s): Other (See Comments) Sugar went over 900 (home) Last Visit date: 06/24/2020 Future appointment: 09/19/2020 The patients preferred pharmacy has been captured for this encounter? yes Request is for script(s) to be escript to pharmacy. Haley Green MA Allergies As of Date: 07/25/2020 Noted Allergy Reaction PREDNISONE 09/06/2015 14 - Other: See Comments Comments: Sugar went over 900 Other reaction(s): Other (See Comments) Sugar went over 900 Date Reviewed: 06/21/2020 Reviewed by: Kassi Young - Fully Assessed Reason for Visit: Refill Request [94] Visit Diagnosis:Hypertrigl yceridemia [E78.1] Order(s):Fenofibrate (LOFIBRA) 160 mg tabletTake 1 tablet by mouth once daily.Disp: 90 tabletRfl: 0 Prescriptions as of 07/25/2020 Sig: FENOFIBRATE 160 MG TABLET Take 1 tablet by mouth once d* SERTRALINE 100 MG TABLET Take 1 tablet by mouth once d* INSULIN NPH ISOPHANE U-100 HU* Inject 27 Units subcutaneousl* ASPIRIN-CALCIUM CARBONATE 81 * Take 81 mg by mouth once anjelica* ASCORBIC ACID (VITAMIN C) 100* Take 500 mg by mouth once norris* MULTIPLE VITAMINS 55 PLUS ORAL Take 1 capsule by mouth once * CALCIUM + VITAMIN D ORAL B COMPLEX-C 500 MG-FOLIC 400 * Take by mouth. VITAMIN C 100 MG TABLET ZINC ORAL Take by mouth. LEVOTHYROXINE 150 MCG TABLET Take 1 tablet by mouth once d* ERGOCALCIFEROL (VITAMIN D2) 1* Take 1 capsule by mouth one t* Problem List As Of Date 07/25/2020 Noted Resolved Temporal arteritis (HCC) [M31.6] 09/06/2015 Type 2 diabetes mellitus with hyperglycemia (HC*09/06/2015 Diabetes (HCC) [E11.9] Hypothyroidism, acquired [E03.9] 06/21/2020 Hypertriglyceridemia [E78.1] 06/21/2020 Obesity, Class I, BMI 30-34.9 [E66.9] 06/21/2020 Vitamin D deficiency [E55.9] 06/21/2020 Prescriptions ordered this encounter Disp Refills Start End FENOFIBRATE 160 MG TABLET 90 t* 0 07/25/2020 Route: ORAL Sig: Take 1 tablet by mouth once daily. Medications Discontinued During This Encounter Prescriptions - Fenofibrate (LOFIBRA) 160 mg tablet (Discontinued) Take 1 tablet by mouth once daily. Encounter Status:Closed by KASSI YOUNG MD on 07/25/20 [facility] 06-24-2020 [facility] Nurse Visit (FPNEWPHILI) TARIK BAKER ([id number]) 1945 F Date Time Provider Department 06/24/20 1:00 PM NURSE JULISA DRAKE FPNEWPHILI During your visit today, we recorded the following information about you: Referring Provider: SELF [200] Allergies As of Date: 06/24/2020 Noted Allergy Reaction PREDNISONE 09/06/2015 14 - Other: See Comments Comments: Sugar went over 900 Other reaction(s): Other (See Comments) Sugar went over 900 Date Reviewed: 06/21/2020 Reviewed by: Kassi Young - Fully Assessed Primary Visit Diagnosis:Encounter for immunization [Z23] Order(s):PNEUMOCOCCA L IMMUNIZATION PPSV 23 [[id number]] Order #: [id number] Prescriptions as of 06/24/2020 Sig: FENOFIBRATE 160 MG TABLET Take 1 tablet by mouth once d* SERTRALINE 100 MG TABLET Take 1 tablet by mouth once d* INSULIN NPH ISOPHANE U-100 HU* Inject 27 Units subcutaneousl* ASPIRIN-CALCIUM CARBONATE 81 * Take 81 mg by mouth once anjelica* ASCORBIC ACID (VITAMIN C) 100* Take 500 mg by mouth once norris* MULTIPLE VITAMINS 55 PLUS ORAL Take 1 capsule by mouth once * CALCIUM + VITAMIN D ORAL B COMPLEX-C 500 MG-FOLIC 400 * Take by mouth. VITAMIN C 100 MG TABLET ZINC ORAL Take by mouth. LEVOTHYROXINE 150 MCG TABLET Take 1 tablet by mouth once d* ERGOCALCIFEROL (VITAMIN D2) 1* Take 1 capsule by mouth one t* Problem List As Of Date 06/24/2020 Noted Resolved Temporal arteritis (HCC) [M31.6] 09/06/2015 Type 2 diabetes mellitus with hyperglycemia (HC*09/06/2015 Diabetes (HCC) [E11.9] Hypothyroidism, acquired [E03.9] 06/21/2020 Hypertriglyceridemia [E78.1] 06/21/2020 Obesity, Class I, BMI 30-34.9 [E66.9] 06/21/2020 Vitamin D deficiency [E55.9] 06/21/2020 Encounter Status:Closed by HALEY GREEN MA on 06/24/20 [facility] 06-21-2020 [facility] Office Visit (FPNEWPHILI) TARIK BAKER ([id number]) 1945 F Date Time Provider Department 06/21/20 3:40 PM KASSI YOUNG FPNEWPHILI During your visit today, we recorded the following information about you: Temperature Pulse Respiration Blood pressure 97.1 degrees 94/minute 12/minute 140/80 Weight Height 90.3 kg 1.651 m Haley Green MA 06/21/2020 2:48 PM Addendum BONE MINERAL DENSITY PATIENT INSTRUCTIONS = Bone mineral density testing measures the amount of calcium in certain parts of your bones. This information determines how strong your bones are. The test is used to detect osteoporosis, a disease in which the bone's mineral content and density are low, increasing a person's risk of fractures. The lumbar spine (lower back) and the hip are the skeletal sites usually examined. For the test, remember that: 1. You cannot take this test if you are . 2. Eat a normal diet on the day of the test. 3. Take your medications as you normally would. 4. DO NOT take calcium supplements (such as Tums) for 24 hours before the test. 5. On the day of the test, leave valuables (jewelry or credit cards) at home. 6. The test should be performed prior to oral, rectal or IV contrast studies, or at least 7 days after any of these studies. For the test, you may be asked to wear a hospital gown. You will lie on your back, on a padded table, in a comfortable position. Generally, you can resume your usual activities immediately. Discussed with the patient the need to ADD more fiber in his diet, cutback total carbs AND cut out nighttime snacks. Your metabolism in the morning is the fastest it will be all day you actually burn calories at a higher rate. In the evening your body is preparing to go to sleep which is similar to a state of hibernation. When most of your vital function slow down. That's why the calories eaten later in the day are stored at a higher caloric rate. Thus the saying, Eat like a Hector for breakfast, a Brady for lunch and a Pauper for dinner. I suggested the patient incorporate more soluble fiber in his diet. This includes apples, pears, plums/prunes, oat bran (the more processed the least fiber. Steel cut/rolled oats have the most fiber per serving) and barley which is easily added to soup. For every 5 g of fiber per serving you can subtract 5 g of carbs. Goal is 25 - 40 Grams of Fiber every day. Suggest adding 5 grams of Fiber / day weekly. Increase fiber dose cause more gas, as a by-product of the bacteria in your gut digesting it. Kassi Young MD 06/21/2020 4:11 PM Signed Kassi Young MD [address] [address] SUBJECTIVE Tarik Baker is a 74 year old female who presents with Patient presents with: Hypothyroidism Diabetes Prescription Refills Obesity Vit D Def . The patient feels her general health is good. 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 She rarely misses doses of her medication. She is doing much better on her 70/30 insulin than she was before. She denies high or low blood sugar symptoms. Especially since she has had a recent change in her insulin dosing. She denies any major changes in breathing, digestion, heart beating, bowel or bladder function. There are no exam notes on file for this visit. HPI HPI Review of Systems Constitutional: Negative for chills, diaphoresis, fever, malaise/fatigue and weight loss. Eyes: Negative for blurred vision, double vision and redness. Respiratory: Negative for cough, shortness of breath and wheezing. Cardiovascular: Negative for chest pain, palpitations, orthopnea and leg swelling. Gastrointestinal: Negative for abdominal pain, blood in stool, constipation, diarrhea, heartburn, melena, nausea and vomiting. Genitourinary: Negative for frequency and urgency. Musculoskeletal: Negative for joint pain and myalgias. Skin: Negative for itching and rash. Neurological: Negative for tingling, tremors, sensory change, speech change and headaches. Endo/Heme/Allergies: Negative for polydipsia. Does not bruise/bleed easily. PAST MEDICAL HISTORY Diagnosis Date - Diabetes (HCC) PAST SURGICAL HISTORY Procedure Laterality Date - TUBAL LIGATION HX Social History Tobacco Use - Smoking status: Never Smoker - Smokeless tobacco: Never Used Substance Use Topics - Alcohol use: Never - Drug use: Never FAMILY HISTORY Problem Relation Age of Onset - No Known Problems Mother - No Known Problems Father - No Known Problems Maternal Grandmother - No Known Problems Maternal Grandfather - No Known Proble (more content not included)... Normal [facility] LURNCon 03-27-2019 [facility] Urine Culture, Routine = Final report Performed at: - [facility] [address] [place] [id number] [employer]: Rickie Ballard PhD, Phone: [phone] CORRECTED REPORT: Previous result was SEE BELOW at 11:06 on 03/29/19 Urine Cult Result 1 = SEE BELOW Escherichia coli Greater than 100,000 colony forming units per mL Cefazolin <=4 ug/mL Cefazolin with an PATITO <=16 predicts susceptibility to the oral agents cefaclor, cefdinir, cefpodoxime, cefprozil, cefuroxime, cephalexin, and loracarbef when used for therapy of uncomplicated urinary tract infections due to E. coli, Klebsiella pneumoniae, and Proteus mirabilis. Urine Cult Result 2 = BRE[employer] UP WORKER Urine Cult Result 3 = BREAK UP WORKER Urine Cult Result 4 = BREAK UP WORKER Antimicrobial Suscept = Comment S = Susceptible; I = Intermediate; R = Resistant P = Positive; N = Negative MICS are expressed in micrograms per mL Antibiotic RSLT#1 RSLT#2 RSLT#3 RSLT#4 Amoxicillin/Clavulan ic Acid S Ampicillin S Cefepime S Ceftriaxone S Cefuroxime S Ciprofloxacin S Ertapenem S Gentamicin S Imipenem S Levofloxacin S Meropenem S Nitrofurantoin S Piperacillin/Tazobac moulton S Tetracycline S Tobramycin S Trimethoprim/Sulfa S Performed at: [facility] [address] [id number] [employer]: Rickie Ballard PhD, Phone: [phone] Source Urine Culture = urine Normal [facility] Comment on above: Performed By: #### M IC2 #### [place] [id number] CBC w/Auto Differentialon Anemia BREAK UP WORKER Normal [facility] Comment on above: Performed By: #### C BC #### [place] [id number] Anisocytosis Ql (Bld) BREAK UP WORKER Normal [facility] Comment on above: Performed By: #### C BC #### [facility] [address] [id number] Basophils Abs. # 0.0 K/uL Normal 0.0-0.1 [facility] Comment on above: Performed By: #### C BC #### [facility] [place] [address] [place] [address] Basophils/100 WBC (Bld) 0.7 % Normal 0.2-1.0 [facility] Comment on above: Performed By: #### C BC #### [facility] [place] [address] [place] [address] Basophils/100 WBC (Bld) BREAK UP WORKER Normal [facility] Comment on above: Performed By: #### C BC #### [facility] [place] [address] [facility] [place] [address] Bosophillia # BREAK UP WORKER Normal [facility] Comment on above: Performed By: #### C BC #### [facility] [place] [address] [facility] [place] [address] Eosinophils (Bld) [#/Vol] 0.2 10*3/uL Normal 0.0-0.2 [facility] Comment on above: Performed By: #### C BC #### [facility] [place] [address] [facility] [place] [address] Eosinophils (Bld) [#/Vol] BREAK UP WORKER Normal [facility] Comment on above: Performed By: #### C BC #### [facility] [place] [address] [facility] [place] [address] Eosinophils/100 WBC (Bld) BREAK UP WORKER Normal [facility] Comment on above: Performed By: #### C BC #### [facility] [place] [address] [facility] [place] [address] Eosinophils/100 WBC (Bld) 3.0 % High 0.9-2.9 [facility] Comment on above: Performed By: #### C BC #### [facility] [place] [address] [place] [address] Erythocytosis BREAK UP WORKER Normal [facility] Comment on above: Performed By: #### C BC #### [facility] [place] [address] [facility] [place] [address] Erythrocyte distribution width (RBC) [Ratio] 13.1 % Normal 11.5-14.5 [facility] Comment on above: Performed By: #### C BC #### [facility] [place] [address] [facility] [place] [address] Hematocrit (Bld) [Volume fraction] 36.0 % Normal 33.4-46.0 [facility] Comment on above: Performed By: #### C BC #### [facility] [place] [address] [facility] [place] [address] Hemoglobin (Bld) [Mass/Vol] 12.6 g/dL Normal 11.1-13.7 [facility] Comment on above: Performed By: #### C BC #### [facility] [place] [address] [facility] [place] [address] Hypochromia BREAK UP WORKER Normal [facility] Comment on above: Performed By: #### C BC #### [facility] [place] [address] [place] [address] Large Platelets BREAK UP WORKER Normal [facility] Comment on above: Performed By: #### C BC #### [facility] [place] [address] [facility] [place] [address] Leukocytosis BREAK UP WORKER Normal [facility] Comment on above: Performed By: #### C BC #### [facility] [place] [address] [facility] [place] [address] Leukopenia BREAK UP WORKER Normal [facility] Comment on above: Performed By: #### C BC #### [facility] [place] [address] [facility] [place] [address] Lymphocytes (Bld) [#/Vol] 1.1 10*3/uL Low 1.3-2.9 [facility] Comment on above: Performed By: #### C BC #### [facility] [place] [address] [facility] [place] [address] Lymphocytes (Bld) [#/Vol] BREAK UP WORKER Normal [facility] Comment on above: Performed By: #### C BC #### [facility] [place] [address] [facility] [place] [address] Lymphocytes/100 WBC (Bld) BREAK UP WORKER Normal [facility] Comment on above: Performed By: #### C BC #### [facility] [place] [address] [facility] [place] [address] Lymphocytes/100 WBC (Bld) 21.6 % Normal 17.0-45.5 [facility] Comment on above: Performed By: #### C BC #### [facility] [place] [address] [place] [address] Lymphocytosis # BREAK UP WORKER Normal [facility] Comment on above: Performed By: #### C BC #### [facility] [place] [address] [place] [address] Lymphocytosis % BREAK UP WORKER Normal [facility] Comment on above: Performed By: #### C BC #### [facility] [place] [address] [facility] [place] [address] Macrocytosis BREAK UP WORKER Normal [facility] Comment on above: Performed By: #### C BC #### [facility] [place] [address] [facility] [place] [address] MCH (RBC) [Entitic mass] 34.1 pg High 27.0-31.0 [facility] Comment on above: Performed By: #### C BC #### [facility] [place] [address] [facility] [place] [address] MCHC (RBC) [Mass/Vol] 35.2 g/dL Normal 33.0-37.0 [facility] Comment on above: Performed By: #### C BC #### [facility] [place] [address] [place] [address] MCV (RBC) [Entitic vol] 97.0 fL Normal 81.0-99.0 [facility] Comment on above: Performed By: #### C BC #### [facility] [place] [address] [facility] [place] [address] Microcytosis BREAK UP WORKER Normal [facility] Comment on above: Performed By: #### C BC #### [facility] [place] [address] [facility] [place] [address] Monocytes (Bld) [#/Vol] 0.5 10*3/uL Normal 0.3-0.8 [facility] Comment on above: Performed By: #### C BC #### [facility] [place] [address] [facility] [place] [address] Monocytes/100 WBC (Bld) 9.0 % Normal 5.5-11.7 [facility] Comment on above: Performed By: #### C BC #### [facility] [place] [address] [place] [address] Monocytosis % BREAK UP WORKER Normal [facility] Comment on above: Performed By: #### C BC #### [facility] [place] [address] [place] [place] [address] Neutropenia # BREAK UP WORKER Normal [facility] Comment on above: Performed By: #### C BC #### [facility] [place] [address] [place] [place] [address] Neutropenia % BREAK UP WORKER Normal [facility] Comment on above: Performed By: #### C BC #### [facility] [place] [address] [place] [address] Neutrophils (Bld) [#/Vol] BREAK UP WORKER Normal [facility] Comment on above: Performed By: #### C BC #### [facility] [place] [address] [place] [address] Neutrophils Abs. # 3.4 K/uL Normal 2.2-4.8 [facility] Comment on above: Performed By: #### C BC #### [facility] [place] [address] [place] [address] Neutrophils/100 WBC (Bld) BREAK UP WORKER Normal [facility] Comment on above: Performed By: #### C BC #### [facility] [place] [address] [place] [address] Neutrophils/100 WBC (Bld) 65.7 % High 43.0-65.0 [facility] Comment on above: Performed By: #### C BC #### [facility] [place] [address] [place] [address] Nucleated RBC (Bld) [#/Vol] 0.0 10*3/uL Normal [facility] Comment on above: Performed By: #### C BC #### [facility] [place] [address] [place] [address] Nucleated RBC/100 WBC (Bld) [Ratio] 0.0 % Normal [facility] Comment on above: Performed By: #### C BC #### [facility] [place] [address] [place] [address] Pancytopenia BREAK UP WORKER Normal [facility] Comment on above: Performed By: #### C BC #### [facility] [place] [address] [place] [address] Platelet mean volume (Bld) [Entitic vol] 10.3 fL Normal 7.4-10.4 [facility] Comment on above: Performed By: #### C BC #### [facility] [place] [address] [place] [address] Platelets (Bld) [#/Vol] 210 10*3/uL Normal 148-402 [facility] Comment on above: Performed By: #### C BC #### [facility] [place] [address] [place] [address] Poikilocytosis BREAK UP WORKER Normal [facility] Comment on above: Performed By: #### C BC #### [facility] [place] [address] [place] [address] RBC (Bld) [#/Vol] 3.71 10*6/uL Low 3.83-5.19 [facility] Comment on above: Performed By: #### C BC #### [facility] [place] [address] [place] [address] Small Platelets BREAK UP WORKER Normal [facility] Comment on above: Performed By: #### C BC #### [facility] [place] [address] [place] [address] Thrombocytopenia BREAK UP WORKER Normal [facility] Comment on above: Performed By: #### C BC #### [facility] [place] [address] [place] [address] Thrombocytopenia. BREAK UP WORKER Normal [facility] Comment on above: Performed By: #### C BC #### [facility] [place] [address] [place] [address] Thrombocytosis BREAK UP WORKER Normal [facility] Comment on above: Performed By: #### C BC #### [facility] [place] [address] [place] [address] WBC (Bld) [#/Vol] 5.1 10*3/uL Normal 3.6-10.8 [facility] Comment on above: Performed By: #### C BC #### [facility] [place] [address] [place] [address] Comprehensive Metabolic Pane yanely 10-01-2018 Albumin [Mass/Vol] 3.2 g/dL Low 3.4-5.0 [facility] Comment on above: Performed By: #### C MP #### [facility] [place] [address] [place] [address] Albumin/Globulin [Mass ratio] 0.7 {ratio} Low 1.1-2.5 [facility] Comment on above: Performed By: #### C MP #### [facility] [place] [address] [place] [address] ALP [Catalytic activity/Vol] 60 U/L Normal 54-112 [facility] Comment on above: Performed By: #### C MP #### [facility] [place] [address] [place] [address] ALT [Catalytic activity/Vol] 75 U/L High 13-66 [facility] Comment on above: Performed By: #### C MP #### [facility] [place] [address] [place] [address] Anion gap [Moles/Vol] 12.0 mmol/L Normal 8.0-16.0 [facility] Comment on above: Performed By: #### C MP #### [facility] [place] [address] [place] [address] AST [Catalytic activity/Vol] 33 U/L Normal 3-39 [facility] Comment on above: Performed By: #### C MP #### [facility] [place] [address] [place] [address] Bilirubin Ql (U) 0.30 mg/dL Normal 0.00-0.99 [facility] Comment on above: Performed By: #### C MP #### [facility] [address] [place] [address] Calcium [Mass/Vol] 8.9 mg/dL Normal 8.2-10.0 [facility] Comment on above: Performed By: #### C MP #### [facility] [address] [place] [address] Chloride [Moles/Vol] 104 mmol/L Normal 94-110 [facility] Comment on above: Performed By: #### C MP #### [facility] [address] [place] [address] CO2 [Moles/Vol] 27 mmol/L Normal 21-34 [facility] Comment on above: Performed By: #### C MP #### [facility] [address] [place] [address] Creatinine [Mass/Vol] 1.04 mg/dL High 0.51-0.95 [facility] Comment on above: Performed By: #### C MP #### [facility] [address] [place] [address] GFR/1.73 sq M predicted among blacks MDRD (S/P/Bld) [Vol rate/Area] mL/min/{1.73_m2} Normal >60 [facility] Comment on above: Result Comment: Experimental Assembler tejas Kidney Disease less than 60 mL/min/1.73 m2 Kidney Failure less than 15 mL/min/1.73 m2 Average estimated GFR by age: 70+ years 75 mL/min/1.73 m2 Performed By: #### C MP #### [facility] [address] [place] [address] GFR/1.73 sq M predicted among non-blacks MDRD (S/P/Bld) [Vol rate/Area] 52 mL/min/{1.73_m2} Abnormal >60 [facility] Comment on above: Performed By: #### C MP #### [facility] [address] [place] [address] Globulin (S) [Mass/Vol] 4.5 g/dL Normal 1.5-4.5 [facility] Comment on above: Performed By: #### C MP #### [facility] [address] [place] [address] Glucose [Mass/Vol] 326 mg/dL High 65-100 [facility] Comment on above: Performed By: #### C MP #### [facility] [address] [place] [address] Potassium [Moles/Vol] 5.0 mmol/L Normal 3.3-5.1 [facility] Comment on above: Performed By: #### C MP #### [facility] [address] [place] [address] Protein [Mass/Vol] 7.7 g/dL Normal 6.1-8.2 [facility] Comment on above: Performed By: #### C MP #### [facility] [address] [place] [address] Sodium [Moles/Vol] 138 mmol/L Normal 132-145 [facility] Comment on above: Performed By: #### C MP #### [facility] [address] [place] [address] Urea nitrogen [Mass/Vol] 24.9 mg/dL Normal 3.2-26.9 [facility] Comment on above: Performed By: #### C MP #### [facility] [address] [facility] [place] [address] Urea nitrogen/Creatinine [Mass ratio] 24 mg/mg High 6-20 [facility] Comment on above: Performed By: #### C MP #### [facility] [place] [address] [facility] [place] [address] Lipid Panelon 10-01-2018 Cholesterol [Mass/Vol] 163 mg/dL Normal 0-200 [facility] Comment on above: Performed By: #### L IPID #### [facility] [place] [address] [facility] [place] [address] Cholesterol in HDL [Mass/Vol] 29 mg/dL Low 39-96 [facility] Comment on above: Performed By: #### L IPID #### [facility] [place] [address] [facility] [place] [address] Cholesterol in LDL [Mass/Vol] 86 mg/dL Normal 0-99 [facility] Comment on above: Performed By: #### L IPID #### [facility] [place] [address] [facility] [place] [address] Cholesterol in LDL/Cholesterol in HDL [Mass ratio] 3.0 mg/dL Normal 0.0-3.2 [facility] Comment on above: Performed By: #### L IPID #### [facility] [place] [address] [facility] [place] [address] Cholesterol in VLDL [Mass/Vol] 48 mg/dL High 5-40 [facility] Comment on above: Performed By: #### L IPID #### [facility] [place] [address] [facility] [place] [address] Cholesterol.total/Angelia sterol in HDL [Mass ratio] 5.6 {ratio} High 0.0-4.4 [facility] Comment on above: Performed By: #### L IPID #### [facility] [place] [address] [place] [address] Triglyceride [Mass/Vol] 240 mg/dL High 0-149 [facility] Comment on above: Result Comment: 150- 199 Borderline High 200-499 High >499 Very High Performed By: #### L IPID #### [facility] [address] [place] [address] TSH, Third Generationon 09-04 TSH, 3rd Generation 2.202 uIU/L Normal 0.358-3.740 [facility] Comment on above: Performed By: #### T SH3G #### [facility] [address] [place] [address] Vitamin D, 25-Hydroxyon 09-04 Vitamin D, 25-Hydroxy 28.1 ng/mL Low 30.0-100.0 [facility] Comment on above: Result Comment: Mavis min D deficiency has been defined by the [place] of Medicine and an Endocrine Society practice guideline as a level of serum 25-OH vitamin D less than 20 ng/mL (1,2). The Endocrine Society went on to further define vitamin D insufficiency as a level between 21 and 29 ng/mL (2). 1. IOM ([place] of Medicine). 2010. Dietary reference intakes for calcium and D. [place]: The National Academies Press. 2. Alejandro MF, Loyda [place], Katt MAHER, et al. Evaluation, treatment, and prevention of vitamin D deficiency: an Endocrine Society clinical practice guideline. JCEM. 2010; 96(7):1911-30. Performed at: [facility] [address] [id number] [employer]ile Fabric Knitter: Rickie Ballard PhD, Phone: [phone] Performed By: #### V D25 #### [facility] [address] [place] [address] LURNCon 05-01-2018 LURNC Urine Culture, Routine = Final report Performed at: [address] [id number] [employer] Knitter: Rickie Ballard PhD, Phone: [phone] CORRECTED REPORT: Previous result was SEE BELOW at 11:06 on 05/03/18 Urine Cult Result 1 = SEE BELOW Escherichia coli Greater than 100,000 colony forming units per mL Cefazolin <=4 ug/mL Cefazolin with an PATITO <=16 predicts susceptibility to the oral agents cefaclor, cefdinir, cefpodoxime, cefprozil, cefuroxime, cephalexin, and loracarbef when used for therapy of uncomplicated urinary tract infections due to E. coli, Klebsiella pneumoniae, and Proteus mirabilis. Urine Cult Result 2 = BREAK UP WORKER Urine Cult Result 3 = BREAK UP WORKER Urine Cult Result 4 = BREAK UP WORKER Antimicrobial Suscept = Comment S = Susceptible; I = Intermediate; R = Resistant P = Positive; N = Negative MICS are expressed in micrograms per mL Antibiotic RSLT#1 RSLT#2 RSLT#3 RSLT#4 Amoxicillin/Clavulan ic Acid S Ampicillin R Cefepime S Ceftriaxone S Cefuroxime S Ciprofloxacin R Ertapenem S Gentamicin S Imipenem S Levofloxacin R Meropenem S Nitrofurantoin S Piperacillin/Tazobac moulton S Tetracycline S Tobramycin S Trimethoprim/Sulfa S Performed at: [address] [id number] [employer] Knitter: Rickie Ballard PhD, Phone: [phone] Source Urine Culture = unknown Normal [facility] Comment on above: Performed By: #### M IC2 #### [facility] [place] [address] Vital Signs Date Time Vital Sign Value Performing Clinician Facility 12-28-2024 13:49-0400 Diastolic blood pressure 70 mm[Hg] Lindsay Wyatt APRN.REELING MACHINE OPERATOR Work Phone: [facility] 12-28-2024 13:49-0400 Heart rate 74 /min Lindsay Wyatt APRN.REELING MACHINE OPERATOR Work Phone: [facility] 12-28-2024 13:49-0400 SaO2% (BldA) [Mass fraction] 98 % Lindsay Suppan 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 Work Phone: [facility] 12-28-2024 13:49-0400 Systolic blood pressure 138 mm[Hg] Lindsay Suppan 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 Work Phone: [facility] 12-03-2024 13:38-0400 Body mass index (BMI) [Ratio] 33.45 kg/m2 Lindsay Suppan 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 Work Phone: [facility] 12-03-2024 13:38-0400 Body temperature 98.2 [degF] Lindsay Suppan 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 Work Phone: [facility] 12-03-2024 13:38-0400 Body weight 91.17 kg Lindsay Suppan 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 Work Phone: [facility] 12-03-2024 13:38-0400 Diastolic blood pressure 76 mm[Hg] Lindsay Suppan 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 Work Phone: [facility] 12-03-2024 13:38-0400 Heart rate 74 /min Lindsay Suppan 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 Work Phone: [facility] 12-03-2024 13:38-0400 SaO2% (BldA) [Mass fraction] 98 % Lindsay Suppan 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 Work Phone: [facility] 12-03-2024 13:38-0400 Systolic blood pressure 134 mm[Hg] Lindsay Suppan 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 Work Phone: [facility] 09-17-2024 16:23-0400 Body mass index (BMI) [Ratio] 33.71 kg/m2 Zac Linton MD Work Phone: [facility] 09-17-2024 16:23-0400 Body weight 91.9 kg Zac Linton MD Work Phone: [facility] 09-17-2024 16:23-0400 Diastolic blood pressure 70 mm[Hg] Zac Linton MD Work Phone: [facility] 09-17-2024 16:23-0400 Heart rate 74 /min Zac Linton MD Work Phone: [facility] 09-17-2024 16:23-0400 Respiratory rate 16 /min Zac Linton MD Work Phone: [facility] 09-17-2024 16:23-0400 SaO2% (BldA) [Mass fraction] 98 % Zac Linton MD Work Phone: [facility] 09-17-2024 16:23-0400 Systolic blood pressure 120 mm[Hg] Zac Linton MD Work Phone: [facility] 09-15-2024 09:01-0400 Body height 165.[address] Zac Linton MD Work Phone: [facility] 09-15-2024 09:01-0400 Body mass index (BMI) [Ratio] 33.6 kg/m2 Dr. Zac Linton MD Work Phone: [facility] 09-15-2024 09:01-0400 Body weight 91.[address] Zac Linton MD Work Phone: [facility] 09-15-2024 09:01-0400 Diastolic blood pressure 77 mm[Hg] Dr. Zac Linton MD Work Phone: [facility] 09-15-2024 09:01-0400 Heart rate 80 /min Dr. Zac Linton MD Work Phone: [facility] 09-15-2024 09:01-0400 Respiratory rate 16 /min Dr. Zac Lniton MD Work Phone: [facility] 09-15-2024 09:01-0400 Systolic blood pressure 143 mm[Hg] Dr. Zac Linton MD Work Phone: [facility] 06-12-2024 14:35-0500 Body mass index (BMI) [Ratio] 34.08 kg/m2 Zac Linton MD Work Phone: [facility] 06-12-2024 14:35-0500 Body weight 92.9 kg Zac Linton MD Work Phone: [facility] 06-12-2024 14:35-0500 Diastolic blood pressure 72 mm[Hg] Zac Linton MD Work Phone: [facility] 06-12-2024 14:35-0500 Heart rate 80 /min Zac Linton MD Work Phone: [facility] 06-12-2024 14:35-0500 Respiratory rate 16 /min Zac Linton MD Work Phone: [facility] 06-12-2024 14:35-0500 SaO2% (BldA) [Mass fraction] 97 % Zac Linton MD Work Phone: [facility] 06-12-2024 14:35-0500 Systolic blood pressure 120 mm[Hg] Zac Linton MD Work Phone: [facility] 02-14-2024 11:03-0400 Body mass index (BMI) [Ratio] 32.98 kg/m2 Padminigt Maldonadof 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 Work Phone: [facility] 02-14-2024 11:03-0400 Body weight 89.9 kg Padmini Maldonadof 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 Work Phone: [facility] 02-14-2024 11:03-0400 Diastolic blood pressure 90 mm[Hg] Padmini Johnsonhof 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 Work Phone: [facility] 02-14-2024 11:03-0400 Heart rate 76 /min Padminigt Johnsonhof 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 Work Phone: [facility] 02-14-2024 11:03-0400 Respiratory rate 18 /min Padminigt Johnsonhof 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 Work Phone: [facility] 02-14-2024 11:03-0400 SaO2% (BldA) [Mass fraction] 96 % Padminigt Johnsonhof 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 Work Phone: [facility] 02-14-2024 11:03-0400 Systolic blood pressure 138 mm[Hg] Padmini Tannhof 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 Work Phone: [facility] 01-02-2024 14:47-0400 Diastolic blood pressure 69 mm[Hg] Padmini Tannhof 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 Work Phone: [facility] 01-02-2024 14:47-0400 Heart rate 103 /min Padmini Tannhof 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 Work Phone: [facility] 01-02-2024 14:47-0400 Respiratory rate 18 /min Padmini Tannhof 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 Work Phone: [facility] 01-02-2024 14:47-0400 SaO2% (BldA) [Mass fraction] 97 % Padminigt Johnsonhof 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 Work Phone: [facility] 01-02-2024 14:47-0400 Systolic blood pressure 159 mm[Hg] Padmini Tannhof 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 Work Phone: [facility] 01-02-2024 09:51-0400 Body mass index (BMI) [Ratio] 35.26 kg/m2 Romeo Mendoza MD Work Phone: [facility] 01-02-2024 09:51-0400 Body temperature 97.7 [degF] Romeo Mendoza MD Work Phone: [facility] 01-02-2024 09:51-0400 Body weight 96.1 kg Romeo Mendoza MD Work Phone: [facility] 01-02-2024 09:51-0400 Diastolic blood pressure 75 mm[Hg] Romeo Mendoza MD Work Phone: [facility] 01-02-2024 09:51-0400 Heart rate 84 /min Romeo Mendoza MD Work Phone: [facility] 01-02-2024 09:51-0400 Respiratory rate 18 /min Romeo Mendoza MD Work Phone: [facility] 01-02-2024 09:51-0400 SaO2% (BldA) [Mass fraction] 97 % Romeo Mendoza MD Work Phone: [facility] 01-02-2024 09:51-0400 Systolic blood pressure 187 mm[Hg] Romeo Mendoza MD Work Phone: [facility] 12-02-2023 09:34-0400 Diastolic blood pressure 82 mm[Hg] Padmini Tannhof 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 Work Phone: [facility] 12-02-2023 09:34-0400 Heart rate 75 /min Padmini Tannhof 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 Work Phone: [facility] 12-02-2023 09:34-0400 Respiratory rate 16 /min Padmini Elizabethhof 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 Work Phone: [facility] 12-02-2023 09:34-0400 SaO2% (BldA) [Mass fraction] 97 % Padmini Elizabethhof 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 Work Phone: [facility] 12-02-2023 09:34-0400 Systolic blood pressure 132 mm[Hg] Padmini Tannhof 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 Work Phone: [facility] 02-21-2023 10:20-0400 Body temperature 98.29 [degF] Viet Pendlebury 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 Work Phone: [facility] 02-21-2023 10:20-0400 Body weight 96.98 kg Viet Pendleayleen 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 Work Phone: [facility] 02-21-2023 10:20-0400 Diastolic blood pressure 80 mm[Hg] Viet Pendlebury 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 Work Phone: [facility] 02-21-2023 10:20-0400 Heart rate 92 /min Viet Pendlebury 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 Work Phone: [facility] 02-21-2023 10:20-0400 Respiratory rate 22 /min Viet Pendlebury 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 Work Phone: [facility] 02-21-2023 10:20-0400 SaO2% (BldA) [Mass fraction] 95 % Viet Matthew 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 Work Phone: [facility] 02-21-2023 10:20-0400 Systolic blood pressure 148 mm[Hg] Viet Shineayleen 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 Work Phone: [facility] 07-05-2022 09:41-0500 Body temperature 98.8 [degF] Padmini Johnsonhof 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 Work Phone: [facility] 07-05-2022 09:41-0500 Body weight 92.08 kg Padmini Elizabethhof 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 Work Phone: [facility] 07-05-2022 09:41-0500 Diastolic blood pressure 78 mm[Hg] Padmini Tannhof 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 Work Phone: [facility] 07-05-2022 09:41-0500 Heart rate 89 /min Padmini Tannhof 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 Work Phone: [facility] 07-05-2022 09:41-0500 Respiratory rate 16 /min Padmini Tannhof 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 Work Phone: [facility] 07-05-2022 09:41-0500 SaO2% (BldA) [Mass fraction] 98 % Padmini Johnsonhof 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 Work Phone: [facility] 07-05-2022 09:41-0500 Systolic blood pressure 136 mm[Hg] Padmini Johnsonhof 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 Work Phone: [facility] 10-13-2021 11:51-0400 Body temperature 98.1 [degF] Maryan Keys 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 Work Phone: [facility] 10-13-2021 11:51-0400 Body weight 90.45 kg Maryan Keys 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 Work Phone: [facility] 10-13-2021 11:51-0400 Diastolic blood pressure 92 mm[Hg] Maryan Keys 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 Work Phone: [facility] 10-13-2021 11:51-0400 Heart rate 95 /min Maryan Keys APRN.REELING MACHINE OPERATOR Work Phone: [facility] 10-13-2021 11:51-0400 Respiratory rate 20 /min Maryan Keys APRN.REELING MACHINE OPERATOR Work Phone: [facility] 10-13-2021 11:51-0400 SaO2% (BldA) [Mass fraction] 96 % Maryan Keys APRN.REELING MACHINE OPERATOR Work Phone: [facility] 10-13-2021 11:51-0400 Systolic blood pressure 128 mm[Hg] Maryan Keys APRN.REELING MACHINE OPERATOR Work Phone: [facility] 08-17-2021 01:28-0400 Body temperature 98.3 [degF] [facility] Work Phone: 08-17-2021 01:28-0400 Diastolic blood pressure 64 mm[Hg] [facility] Work Phone: 08-17-2021 01:28-0400 Heart rate 83 /min [facility] Work Phone: 08-17-2021 01:28-0400 Respiratory rate 18 /min [facility] Work Phone: 08-17-2021 01:28-0400 SaO2% (BldA) [Mass fraction] 93 % [facility] Work Phone: 08-17-2021 01:28-0400 Systolic blood pressure 139 mm[Hg] [facility] Work Phone: 08-16-2021 23:14-0400 Body height 165.1 cm [facility] Work Phone: 08-16-2021 23:14-0400 Body mass index (BMI) [Ratio] 33.3 kg/m2 [facility] Work Phone: 08-16-2021 23:14-0400 Body weight 90.71 kg [facility] Work Phone: 10-17-2020 09:03-0400 Diastolic blood pressure 90 mm[Hg] Kassi Young MD Work Phone: [facility] 10-17-2020 09:03-0400 Systolic blood pressure 130 mm[Hg] Kassi Young MD Work Phone: [facility] 10-17-2020 08:55-0400 Body height 165.1 cm Kassi Young MD Work Phone: [facility] 10-17-2020 08:55-0400 Body temperature 97.2 [degF] Kassi Young MD Work Phone: [facility] 10-17-2020 08:55-0400 Body weight 90.27 kg Kassi Young MD Work Phone: [facility] 10-17-2020 08:55-0400 Heart rate 55 /min Kassi Young MD Work Phone: [facility] 10-17-2020 08:55-0400 Respiratory rate 12 /min Kassi Young MD Work Phone: [facility] 10-17-2020 08:55-0400 SaO2% (BldA) [Mass fraction] 99 % Kassi Young MD Work Phone: [facility] 06-21-2020 15:08-0500 BP Diastolic 80 mm[Hg] Kassi Young [facility] 06-21-2020 15:08-0500 BP Systolic 140 mm[Hg] Kassi Young [facility] 06-21-2020 15:05-0500 Body Temperature 97.11 [degF] [facility] 06-21-2020 15:05-0500 Body weight 90.27 kg Kassi Young [facility] 06-21-2020 15:05-0500 Height 165.1 cm Kassi Young [facility] 06-21-2020 15:05-0500 Pulse (Heart Rate) 94 /min [facility] 06-21-2020 15:05-0500 Pulse Oximetry 98 % Kassi Young [facility] 06-21-2020 15:05-0500 Respiratory Rate 12 /min [facility] En[facility]ters Encounter Date Encounter Type Care Provider Facility Start: 01-22-2025 End: 01-22-2025 ambulatory LINDSAY WYATT Facility:[facility] Start: 12-31-2024 End: 12-31-2024 Follow-up encounter Lindsay Wyatt 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 Work Phone: [facility] [place] Start: 12-29-2024 End: 12-29-2024 Telephone encounter Lindsay Wyatt 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 Work Phone: [facility] [place] Comment on above: Medication Problem; rx's failed did not go to pharmacy Start: 12-28-2024 End: 12-29-2024 Telephone encounter Lee CLARKE Navigation Start: 12-28-2024 End: 12-28-2024 ambulatory ZAC LINTON Facility:[facility] Start: 12-28-2024 End: 12-28-2024 Office outpatient visit 25 minutes Lindsay Wyatt 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 Work Phone: [facility] Comment on above: Recurrent UTI (urina ry tract infection) (Primary Dx); Screening for depression; Encounter for screening examination for other mental health and behavioral disorders; Hypertriglyceridemia; Bilateral pulmonary embolism (HCC); Hypothyroidism, acquired; Primary hypertension; Type 2 diabetes mellitus with hyperglycemia, with long-term current use of insulin (HCC); History of non-ST elevation myocardial infarction (NSTEMI); Vitamin D deficiency; ARASELI (generalized anxiety disorder) Start: 12-18-2024 End: 12-18-2024 ambulatory Zac Linton MD Work Phone: [facility] [place] Start: 12-18-2024 End: 12-18-2024 Patient encounter procedure [facility] Comment on above: Population Health Na vigation Outreach ([facility] Pal[facility] ) Start: 12-17-2024 End: 12-17-2024 ambulatory ZAC LINTON Facility:[facility] Start: 12-03-2024 End: 12-03-2024 Telephone encounter Zac Linton MD Work Phone: [facility] [place] Comment on above: Patient Update Start: 12-03-2024 End: 12-03-2024 Office outpatient visit 15 minutes Lindsay Dwight Ricardo CALVO Work Phone: [facility] [place] Comment on above: Dysuria (Primary Dx) ; Vaginal yeast infection Start: 12-03-2024 End: 12-03-2024 ambulatory ZAC Renay [facility] Facility:[facility] Start: 11-13-2024 End: 11-13-2024 ambulatory Zac Linton MD Work Phone: [facility] [place] Start: 11-13-2024 End: 11-13-2024 Patient encounter procedure Zac Linton MD Work Phone: [facility] Comment on above: Population Health [facility] [place] [facility] Start: 09-22-2024 End: 11-22-2024 Follow-up encounter Zac Linton MD Work Phone: [facility] [place] Comment on above: Results Start: 09-17-2024 End: 09-17-2024 Office outpatient visit 25 minutes Zac Linton MD Work Phone: [facility] [place] Comment on above: Type 2 diabetes jeremy itus with hyperglycemia, with long-term current use of insulin (HCC) (Primary Dx); Hypertriglyceridemia; Hypothyroidism, acquired; Vitamin D deficiency; Primary hypertension; Bilateral pulmonary embolism (HCC); History of non-ST elevation myocardial infarction (NSTEMI); Stage 3a chronic kidney disease (HCC); Type 2 diabetes mellitus with diabetic polyneuropathy, with long-term current use of insulin (HCC) Start: 09-17-2024 End: 09-17-2024 ambulatory ZAC Niño [facility] Facility:[facility] Start: 09-15-2024 End: 09-15-[address] Josue Hsu MD -[facility] Work Phone: Start: 09-15-2024 End: 09-15-[address] Zac Linton MD Work Phone: [facility] Work Phone: Start: 08-24-2024 End: 08-24-2024 Refill Zac Linton MD Work Phone: [facility] [place] Comment on above: Refill Request Start: 07-28-2024 End: 07-28-2024 ambulatory Patricio Gongora [facility] [place] Start: 07-28-2024 End: 07-28-2024 Patient encounter procedure [facility]ricio Sharad [facility] [place] Comment on above: Population Health Na vigation Outreach ([employer] [place]) Start: 07-16-2024 End: 07-16-2024 Telephone encounter Zac Linton MD Work Phone: [facility] [place] Comment on above: Orders Start: 07-14-2024 End: 07-14-2024 Telephone encounter Zac Linton MD Work Phone: [facility] [place] Comment on above: Urinary Problem Start: 06-23-2024 End: 06-25-2024 Telephone encounter Zac Linton MD Work Phone: [facility] [place] Comment on above: Patient concern Start: 06-19-2024 End: 06-19-2024 Follow-up encounter 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 APRN.REELING MACHINE OPERATOR Work Phone: [facility] [place] Comment on above: Type 2 diabetes jeremy itus with hyperglycemia, with long-term current use of insulin (HCC) (Primary Dx) Start: 06-18-2024 End: 06-19-2024 Follow-up encounter Shankar Palacio APRN.REELING MACHINE OPERATOR Work Phone: [facility] [place] Comment on above: Acute cystitis with hematuria (Primary Dx) Start: 06-16-2024 End: 06-16-2024 Telephone encounter Zac Linton MD Work Phone: [facility] [place] Comment on above: Lab Orders (/) Start: 06-16-2024 End: 06-16-2024 ambulatory PADMINI Grajeda:[facility] Start: 06-12-2024 End: 06-12-2024 ambulatory ZAC LINTON Facility:[facility] Start: 06-12-2024 End: 06-12-2024 Patient encounter procedure Zac Linton MD Work Phone: [facility] [place] Comment on above: Type 2 diabetes jeremy itus with hyperglycemia, with long-term current use of insulin (HCC) (Primary Dx); Bilateral pulmonary embolism (HCC); Hypothyroidism, acquired; Hypertriglyceridemia; Vitamin D deficiency; Primary hypertension; History of non-ST elevation myocardial infarction (NSTEMI); Leg swelling; Type 2 diabetes mellitus with diabetic polyneuropathy, with long-term current use of insulin (HCC) Start: 05-26-2024 End: 05-26-2024 Refill Zac Linton MD Work Phone: [facility] [place] Comment on above: Refill Request Start: 05-20-2024 End: 05-22-2024 Telephone encounter Zac Linton MD Work Phone: [facility] [place] Comment on above: Refill Request Start: 04-21-2024 End: 04-21-2024 ambulatory [facility] Facility:[facility] Start: 04-20-2024 End: 04-20-2024 Refill Zac Linton MD Work Phone: [facility] [place] Comment on above: Refill Request Start: 04-13-2024 End: 04-14-2024 Telephone encounter Zac Linton MD Work Phone: [facility] [place] Comment on above: FMLA Paperwork (Comp leted for daughter to help with care and appts) Start: 03-23-2024 End: 03-23-2024 ambulatory [facility] Facility:[facility] Start: 03-17-2024 End: 03-17-2024 Telephone encounter Zac Linton MD Work Phone: [facility] [place] Comment on above: UTI s/s Start: 02-28-2024 End: 02-28-2024 Telephone encounter Zac Linton MD Work Phone: [facility] [place] Comment on above: [facility] Start: 02-24-2024 End: 02-24-2024 Refill 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 Work Phone: [facility] [place] Comment on above: Refill Request Start: 02-18-2024 End: 02-18-2024 Refill Zac Linton MD Work Phone: [facility] [place] Comment on above: Refill Request Start: 02-17-2024 End: 02-18-2024 Refill [facility] Comment on above: Refill Request Patient Update Start: 02-14-2024 End: 02-14-2024 Patient encounter procedure 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 Work Phone: [facility] [place] Comment on above: Hospital discharge f ollow-up (Primary Dx); Bilateral pulmonary embolism (HCC) Start: 02-14-2024 End: 02-14-2024 ambulatory PADMINI MOSER Facility:[facility] Start: 02-13-2024 End: 02-13-2024 Refill Zac Linton MD Work Phone: [facility] Comment on above: Refill Request Start: 02-12-2024 End: 02-13-2024 Telephone encounter Zac Linton MD [facility] Comment on above: OT plan of care Start: 02-07-2024 End: 02-07-2024 Telephone encounter Zac Linton MD [facility] Comment on above: Home Health Request/ Update Start: 02-05-2024 End: 02-06-2024 Telephone encounter Zac Linton MD Work Phone: [facility] Start: 02-05-2024 ambulatory Janaprademandy Gallagher Fa cility:[facility] Start: 02-04-2024 End: 02-06-2024 Evaluation and management of inpatient [facility] Facility:[facility] Start: 02-04-2024 End: 02-04-2024 ambulatory Zac Linton MD Work Phone: [facility] Comment on above: Shortness of Breath Start: 01-31-2024 End: 01-31-2024 Refill Zac Linton MD Work Phone: [facility] Comment on above: Refill Request Start: 01-25-2024 End: 01-27-2024 Refill 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 APRN.REELING MACHINE OPERATOR Work Phone: [facility] Comment on above: Med Change Request Start: 01-22-2024 End: 01-22-2024 Telephone encounter aPdmini Moser 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 Work Phone: [facility] [place] Comment on above: Results (Echo ) Start: 01-03-2024 End: 01-08-2024 Telephone encounter 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 APRN.REELING MACHINE OPERATOR Work Phone: [facility] [place] Comment on above: Results (Labs ) Start: 01-02-2024 End: 01-02-2024 Patient encounter procedure 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 APRN.REELING MACHINE OPERATOR Work Phone: [facility] Comment on above: Palpitations (Primar y Dx); PVC (premature ventricular contraction); SOB (shortness of breath); Leg swelling; Primary hypertension Start: 01-02-2024 End: 01-02-2024 Patient encounter procedure Romeo Mendoza MD Work Phone: [facility] Comment on above: Bilateral leg edema (Primary Dx); Cardiac arrhythmia, unspecified cardiac arrhythmia type Start: 12-20-2023 Refill Zac pop MD Work Phone: [facility] Comment on above: Refill Request Start: 12-18-2023 Telephone encounter Padmini palomares 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 Work Phone: [facility] [place] Comment on above: Results (Labs ) Start: 12-17-2023 Telephone encounter Padmini palomares 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 Work Phone: [facility] Comment on above: Results (US Bladder/ Kidney ) Start: 12-16-2023 End: 12-16-2023 Subsequent hospital visit by physician [facility] Work Phone: Radiology Comment on above: Microscopic hematuri a [R31.29] Start: 12-13-2023 Telephone encounter Zac rosenberg MD Work Phone: [facility] [place] Comment on above: Results Start: 12-09-2023 Telephone encounter Zac rosenberg MD Work Phone: [facility] [place] Comment on above: UTI Start: 12-04-2023 Telephone encounter Padmini palomares 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 Work Phone: [facility] [place] Comment on above: Results (Urine ) Start: 12-02-2023 End: 12-02-2023 Patient encounter procedure 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 APRN.REELING MACHINE OPERATOR Work Phone: [facility] [place] Comment on above: Medicare annual well ness visit, subsequent (Primary Dx); Recurrent UTI (urinary tract infection); Increased urinary frequency; Vaginal yeast infection; Type 2 diabetes mellitus with hyperglycemia, with long-term current use of insulin (HCC); Chronic kidney disease, stage 3a (HCC); Primary hypertension; Hypertriglyceridemia; Hypothyroidism, acquired; ARASELI (generalized anxiety disorder); Vitamin D deficiency; Screening for depression; Encounter for screening examination for other mental health and behavioral disorders Start: 11-29-2023 End: 11-29-2023 ambulatory Nurse Intm/Famp Triage [facility] Work Phone: Nurse Phone Triage Comment on above: Urinary Frequency Start: 11-27-2023 Telephone encounter Edy shepard MD Work Phone: Urology Comment on above: Appointment Start: 11-22-2023 Telephone encounter Padmini palomares 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 Work Phone: [facility] [place] Comment on above: Results (Urine ) Start: 11-19-2023 Telephone encounter Zac rosenberg MD Work Phone: [place] Start: 10-30-2023 Refill Shankar PAGE RN.REELING MACHINE OPERATOR Work Phone: [facility] [place] Comment on above: Refill Request Start: 10-30-2023 Telephone encounter Zac rosenberg MD Work Phone: [facility] [place] Comment on above: Appointment Start: 10-28-2023 Telephone encounter Zac rosenberg MD Work Phone: [facility] [place] Comment on above: burning, itching and pain-thinks has bladder infection Start: 10-23-2023 End: 10-23-2023 ambulatory Nurse Intm/Famp Triage [facility] Work Phone: Nurse Phone Triage Comment on above: Vaginal Problem Start: 10-22-2023 Telephone encounter Zac rosenberg MD Work Phone: [facility] [place] Comment on above: Orders Start: 10-17-2023 End: 10-17-2023 Emergency department patient visit Zac Linton Facility:[facility] Start: 04-04-2023 Telephone encounter Zac rosenberg MD Work Phone: [facility] [place] Comment on above: FMLA forms Start: 02-21-2023 End: 02-21-2023 Office outpatient visit 25 minutes Viet Castro APRN.REELING MACHINE OPERATOR Work Phone: [facility] Comment on above: Burning with urinati on (Primary Dx) Start: 11-20-2022 Telephone encounter Zac rosenberg MD Work Phone: [facility] [place] Comment on above: Results Start: 10-02-2022 Refill Zac pop MD Work Phone: [facility] [place] Comment on above: Refill Request Start: 07-16-2022 Refill Shankar PAGE RN.REELING MACHINE OPERATOR Work Phone: [facility] [place] Comment on above: Refill Request Start: 07-13-2022 Refill Zac pop MD Work Phone: [facility] [place] Comment on above: Refill Request Start: 07-11-2022 Refill Shankar PAGE RN.REELING MACHINE OPERATOR Work Phone: [facility] [place] Comment on above: Refill Request; Refi ll Request Start: 07-09-2022 Telephone encounter Padmini palomares 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 Work Phone: [facility] [place] Comment on above: Results (Urine ) Start: 07-05-2022 End: 07-05-2022 Patient encounter procedure Padmini Johnsonjose 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 Work Phone: [facility] [place] Comment on above: Acute cystitis with hematuria (Primary Dx) Start: 07-04-2022 Telephone encounter Zac rosenberg MD Work Phone: [facility] [place] Comment on above: possible uti Start: 05-15-2022 Refill Zac pop MD Work Phone: [facility] [place] Comment on above: Refill Request Start: 04-09-2022 Refill Zac pop MD Work Phone: [facility] [place] Comment on above: Refill Request Start: 03-13-2022 ambulatory Chen ([facility] [place] Comment on above: Population Health Na vigation Outreach ([employer] care gap) Start: 02-27-2022 Telephone encounter Zac rosenberg MD Work Phone: [facility] [place] Comment on above: FMLA Paperwork Start: 02-23-2022 ambulatory Nesha Florentino [facility] [place] Comment on above: Population Health Na vigation Outreach ([employer] Care Gaps ) Start: 01-25-2022 Refill Zac pop MD Work Phone: [facility] [place] Comment on above: Refill Request Start: 12-18-2021 ambulatory Zac pop MD Work Phone: [facility] [place] Comment on above: Uti - Re-occurring urinary symptoms Start: 11-27-2021 Refill Zac pop MD Work Phone: [facility] [place] Comment on above: Refill Request Start: 11-23-2021 Telephone encounter Zac rosenberg MD Work Phone: [facility] [place] Comment on above: Patient Question Start: 11-09-2021 Refill Zac pop MD Work Phone: [facility] Comment on above: Refill Request Start: 10-15-2021 Telephone encounter Maryan Massimo ASENCIO.REELING MACHINE OPERATOR Work Phone: [facility] Comment on above: Results Start: 10-13-2021 End: 10-13-2021 Patient encounter procedure Maryan Keys APRN.REELING MACHINE OPERATOR Work Phone: [facility] Comment on above: Painful urination (P rimary Dx) Start: 09-13-2021 Telephone encounter Zac rosenberg MD Work Phone: [facility] Comment on above: Results Start: 09-05-2021 ambulatory [facility] [place] Comment on above: Population Health Na vigation Outreach ([employer] care gaps) Start: 08-16-2021 End: 08-17-2021 Emergency department patient visit [facility] Start: 10-17-2020 End: 10-17-2020 Patient encounter procedure Kassi Young MD Work Phone: [facility] Comment on above: Hypothyroidism, acqu ired (Primary Dx); Hypertriglyceridemia; Temporal arteritis (HCC); Type 2 diabetes mellitus with diabetic polyneuropathy, with long-term current use of insulin (HCC); Vitamin D deficiency; Obesity, Class I, BMI 30-34.9 Start: 09-13-2020 End: 09-13-2020 Refill Kassi Young MD Work Phone: [facility] Comment on above: Refill Request Start: 07-25-2020 End: 07-25-2020 Refill Kassi Young Work Phone: [facility] Comment on above: Refill Request Start: 06-24-2020 End: 06-24-2020 Nursing evaluation of patient and report Nurse Julisa Drake Work Phone: [facility] Comment on above: Encounter for immuni zation (Primary Dx) Start: 06-21-2020 End: 06-21-2020 Patient encounter procedure Kassi Young Work Phone: [facility] Comment on above: Type 2 diabetes jeremy itus with diabetic polyneuropathy, with long-term current use of insulin (HCC) (Primary Dx); Hypothyroidism, acquired; Hypertriglyceridemia; Screening for diabetic retinopathy; Special screening examination for viral disease; Asymptomatic menopause; Vitamin D deficiency; Obesity, Class I, BMI 30-34.9 Procedures Date Procedure Procedure Detail Performing Clinician Start: 12-28-2024 Adult depression scr eening assessment Lindsay Wyatt PLATE DEVELOPER.[facility] Work Phone: Start: 12-03-2024 Urnls dip stick/tabl et rgnt auto w/o microscopy Lindsay Wyatt PLATE DEVELOPER.[facility] Work Phone: Start: 12-16-2023 Us retroperitoneal r eal time w/image complete 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 PLATE DEVELOPER.[facility] Work Phone: Start: 12-02-2023 Urnls dip stick/tabl et reagent auto microscopy 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 APRN.[facility] Work Phone: Start: 12-02-2023 Urnls dip stick/tabl et rgnt auto w/o microscopy 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 APRN.[facility] Work Phone: Start: 12-02-2023 Adult depression scr eening assessment 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 APRN.[facility] Work Phone: Start: 02-21-2023 Urnls dip stick/tabl et rgnt auto w/o microscopy Romeo Mendoza MD Work Phone: Start: 07-05-2022 Urnls dip stick/tabl et rgnt auto w/o microscopy 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 APRN.[facility] Work Phone: Start: 10-13-2021 Urnls dip stick/tabl et rgnt auto w/o microscopy Maryan Keys PLATE DEVELOPER.[facility] Work Phone: Start: 06-21-2020 Adult depression scr eening assessment Kassi Young Plan of Treatment Date Care Activity Detail Author Start: 12-28-2025 Annual PCP Team Chronic Disease Visit Annual PCP Team Chronic Disease Visit [facility] Start: 12-28-2025 Anxiety Screening Anxiety Screening [facility] Start: 12-28-2025 Depression Screening Depression Screening [facility] Start: 12-28-2025 Diabetic foot examination Diabetic Foot Exam [facility] Start: 12-28-2025 Glaucoma screening Dilated Retinal Exam [facility] Comment on above: Postponed from 04/10/2023 (Declined at t his time) Start: 12-28-2025 RSV Vaccine (1 - 1-dose 75+ series) RSV Vaccine (1 - 1-dose 75+ series) [facility] Comment on above: Postponed from 2020 (Declined at t his time) Start: 12-28-2025 Screening for osteoporosis Bone Density Screening [facility] Comment on above: Postponed from 2010 (Declined at t his time) Start: 12-17-2025 Complete blood count Hemoglobin/Hematocrit [facility] Start: 12-17-2025 Creatinine measurement Serum Creatinine [facility] Start: 12-17-2025 Hepatitis B screening Urine Albumin:Creatinine Ratio [facility] Start: 12-03-2025 Annual PCP Team Chronic Disease Visit Annual PCP Team Chronic Disease Visit [facility] Start: 09-17-2025 Annual PCP Team Chronic Disease Visit Annual PCP Team Chronic Disease Visit [facility] Start: 09-17-2025 BP Controlled (<130/80) BP Controlled (<130/80) [facility] Start: 09-17-2025 Creatinine measurement Serum Creatinine [facility] Start: 07-01-2025 End: 07-01-2025 Patient encounter procedure 07/01/2025 12:40 PM EST Office Visit [facility] [address] [place] [address] Lindsay Wyatt, 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 [address] [place], [place] [address] Medicare Wellness Exam(possible establish care) [facility] Comment on above: Medicare Wellness Exam(possible establis h care) Start: 06-21-2025 ADVANCE DIRECTIVE DISCUSSION ADVANCE DIRECTIVE DISCUSSION [facility] Start: 06-19-2025 Hemoglobin A1c measurement HbA1C [facility] Start: 06-16-2025 Creatinine measurement Serum Creatinine [facility] Start: 06-16-2025 Hepatitis B surface antibody level LDL Cholesterol [facility] Start: 06-12-2025 Annual PCP Team Chronic Disease Visit Annual PCP Team Chronic Disease Visit [facility] Start: 06-12-2025 BP Controlled (<130/80) BP Controlled (<130/80) [facility] Start: 06-12-2025 Covid-19 Vaccine () Covid-19 Vaccine () [facility] Comment on above: Postponed from 01/05/2024 (Declined at t his time) Start: 03-20-2025 Hemoglobin A1c measurement HbA1C [facility] Start: 02-13-2025 Annual PCP Team Chronic Disease Visit Annual PCP Team Chronic Disease Visit [facility] Start: 01-11-2025 End: 04-12-2025 URINALYSIS, REFLEX MICROSCOPIC URINALYSIS, REFLEX MICROSCOPIC Lab Routine Recurrent UTI (urinary tract infection) Expected: 01/11/2025, Expires: 04/12/2025 [facility] Work Phone: Comment on above: Expected: 01/11/2025, Expires: Start: 01-04-2025 Influenza vaccination [facility] Start: 01-01-2025 Annual PCP Team Chronic Disease Visit Annual PCP Team Chronic Disease Visit [facility] Start: 01-01-2025 Creatinine measurement Serum Creatinine [facility] Start: 12-14-2024 End: 12-14-2024 Patient encounter procedure 12/14/2024 1:40 PM EDT Office Visit [facility] [address] [place], [place] [id number] Zac Linton MD [address] [place] [address] 6 month follow up [facility] Comment on above: 6 month follow up Start: 12-12-2024 Creatinine measurement Serum Creatinine [facility] Start: 12-12-2024 Hepatitis B surface antibody level LDL Cholesterol [facility] Start: 12-10-2024 End: 03-11-2025 CBC W Auto Differential panel - Blood COMPLETE BLOOD COUNT AND DIFFERENTIAL Lab Routine Bilateral pulmonary embolism (HCC) Expected: 12/10/2024 (Approximate), Expires: 03/11/2025 [facility] Comment on above: Expected: 12/10/2024 (Approximate), Expi res: 03/11/2025 Start: 12-10-2024 End: 03-11-2025 Comprehensive metabolic 2000 panel - Serum or Plasma COMPREHENSIVE METABOLIC PANEL Lab Routine Type 2 diabetes mellitus with hyperglycemia, with long-term current use of insulin (HCC) Hypertriglyceridemia Type 2 diabetes mellitus with diabetic polyneuropathy, with long-term current use of insulin (HCC) Expected: 12/10/2024 (Approximate), Expires: 03/11/2025 [facility] Comment on above: Expected: 12/10/2024 (Approximate), Expi res: 03/11/2025 Start: 12-10-2024 End: 03-11-2025 Hemoglobin A1c in Blood HEMOGLOBIN A1C Lab Routine Type 2 diabetes mellitus with hyperglycemia, with long-term current use of insulin (HCC) Type 2 diabetes mellitus with diabetic polyneuropathy, with long-term current use of insulin (HCC) Expected: 12/10/2024 (Approximate), Expires: 03/11/2025 [facility] Comment on above: Expected: 12/10/2024 (Approximate), Expi res: 03/11/2025 Start: 12-10-2024 End: 03-11-2025 Lipid 1996 panel - Serum or Plasma LIPID PANEL BASIC Lab Routine Hypertriglyceridemia Expected: 12/10/2024 (Approximate), Expires: 03/11/2025 [facility] Comment on above: Expected: 12/10/2024 (Approximate), Expi res: 03/11/2025 Start: 12-10-2024 End: 03-11-2025 Microalbumin/Creatinine [Mass Ratio] in Urine ALBUMIN/CREATININE RATIO, URINE Lab Routine Type 2 diabetes mellitus with hyperglycemia, with long-term current use of insulin (HCC) Type 2 diabetes mellitus with diabetic polyneuropathy, with long-term current use of insulin (HCC) Expected: 12/10/2024 (Approximate), Expires: 03/11/2025 [facility] Work Phone: Comment on above: Expected: 12/10/2024 (Approximate), Expi res: 03/11/2025 Start: 12-10-2024 End: 03-11-2025 Thyrotropin [Units/volume] in Serum or Plasma THYROID STIMULATING HORMONE Lab Routine Hypothyroidism, acquired Expected: 12/10/2024 (Approximate), Expires: 03/11/2025 [facility] Comment on above: Expected: 12/10/2024 (Approximate), Expi res: 03/11/2025 Start: 12-01-2024 Annual PCP Team Chronic Disease Visit Annual PCP Team Chronic Disease Visit [facility] Start: 12-01-2024 Anxiety Screening Anxiety Screening [facility] Start: 12-01-2024 Covid-19 Vaccine ( season) Covid-19 Vaccine ( season) [facility] Comment on above: Postponed from 01/04/2023 (Declined at t his time) Start: 12-01-2024 Depression Screening Depression Screening [facility] Start: 12-01-2024 Diabetic foot examination Diabetic Foot Exam [facility] Start: 12-01-2024 Pneumococcal Vaccine: 50+ (2 of 2 - PCV) Pneumococcal Vaccine: 50+ (2 of 2 - PCV) [facility] Comment on above: Postponed from 06/24/2021 (Declined at t his time) Start: 12-01-2024 Pneumococcal Vaccine: 65+ (2 of 2 - PCV) Pneumococcal Vaccine: 65+ (2 of 2 - PCV) [facility] Comment on above: Postponed from 06/24/2021 (Declined at t his time) Start: 12-01-2024 RSV Vaccine (1 - 1-dose 60+ series) RSV Vaccine (1 - 1-dose 60+ series) [facility] Comment on above: Postponed from 2005 (Declined at t his time) Start: 12-01-2024 RSV Vaccine (1 - 1-dose 75+ series) RSV Vaccine (1 - 1-dose 75+ series) [facility] Comment on above: Postponed from 2020 (Declined at t his time) Start: 12-01-2024 Shingrix Vaccine (1 of 2) Shingrix Vaccine (1 of 2) [facility] Comment on above: Postponed from 10/07/1995 (Declined at t his time) Start: 11-02-2024 Influenza vaccination [facility] Comment on above: Postponed from 01/05/2024 (Declined at t his time) Start: 10-14-2024 Urine microalbumin profile [facility] Start: 09-17-2024 End: 09-17-2024 Patient encounter procedure 09/17/2024 4:20 PM EDT Office Visit [facility] [address] [place] [address] Zac Linton MD [address] [facility] [place] [address] 3 month follow up [facility] [place] Comment on above: 3 month follow up Start: 09-17-2024 End: 12-17-2024 Basic metabolic 2000 panel - Serum or Plasma [facility] Work Phone: Comment on above: Expected: 09/17/2024, Expires: Start: 09-17-2024 End: 12-17-2024 Hemoglobin A1c in Blood [facility] Comment on above: Expected: 09/17/2024, Expires: Start: 09-16-2024 End: 09-16-2024 Patient encounter procedure 09/16/2024 2:20 PM EDT Office Visit [facility] [place] [address] [place] [address] 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 APRN.REELING MACHINE OPERATOR [address] [facility] [place] [address] 3 month follow up [facility] [place] Comment on above: 3 month follow up Start: 09-16-2024 End: 12-16-2024 Comprehensive metabolic 2000 panel - Serum or Plasma COMPREHENSIVE METABOLIC PANEL Lab Routine Type 2 diabetes mellitus with hyperglycemia, with long-term current use of insulin (HCC) Expected: 09/16/2024, Expires: 12/16/2024 [facility] Comment on above: Expected: 09/16/2024, Expires: Start: 09-16-2024 End: 12-16-2024 Hemoglobin A1c in Blood HEMOGLOBIN A1C Lab Routine Type 2 diabetes mellitus with hyperglycemia, with long-term current use of insulin (HCC) Expected: 09/16/2024, Expires: 12/16/2024 [facility] Work Phone: Comment on above: Expected: 09/16/2024, Expires: Start: 09-13-2024 Hemoglobin A1c measurement HbA1C [facility] Start: 06-16-2024 End: 09-15-2024 Bacteria identified in Urine by Culture [facility] Comment on above: Expected: 06/16/2024, Expires: Start: 06-16-2024 End: 09-15-2024 Urinalysis complete panel - Urine [facility] Work Phone: Comment on above: Expected: 06/16/2024, Expires: Start: 06-14-2024 Hemoglobin A1c measurement HbA1C [facility] Start: 06-11-2024 End: 06-11-2024 Patient encounter procedure 06/11/2024 10:00 AM EST Office Visit [facility] [address] [place], [place] [id number] 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 APRN.REELING MACHINE OPERATOR [address] [place] [address] 6 month follow up [facility] Comment on above: 6 month follow up Start: 06-01-2024 End: 08-31-2024 Comprehensive metabolic 2000 panel - Serum or Plasma COMPREHENSIVE METABOLIC PANEL Lab Routine Hypertriglyceridemia Expected: 06/01/2024, Expires: 08/31/2024 [facility] Work Phone: Comment on above: Expected: 06/01/2024, Expires: Start: 06-01-2024 End: 08-31-2024 Hemoglobin A1c in Blood HEMOGLOBIN A1C Lab Routine Type 2 diabetes mellitus with hyperglycemia, with long-term current use of insulin (HCC) Expected: 06/01/2024, Expires: 08/31/2024 [facility] Comment on above: Expected: 06/01/2024, Expires: Start: 06-01-2024 End: 08-31-2024 Lipid 1996 panel - Serum or Plasma LIPID PANEL BASIC Lab Routine Hypertriglyceridemia Expected: 06/01/2024, Expires: 08/31/2024 [facility] Comment on above: Expected: 06/01/2024, Expires: Start: 06-01-2024 End: 08-31-2024 Thyrotropin [Units/volume] in Serum or Plasma THYROID STIMULATING HORMONE Lab Routine Hypothyroidism, acquired Expected: 06/01/2024, Expires: 08/31/2024 [facility] Comment on above: Expected: 06/01/2024, Expires: Start: 06-01-2024 End: 08-31-2024 Thyroxine (T4) free [Mass/volume] in Serum or Plasma T4 FREE/FREE THYROXINE Lab Routine Hypothyroidism, acquired Expected: 06/01/2024, Expires: 08/31/2024 [facility] Comment on above: Expected: 06/01/2024, Expires: Start: 05-06-2024 Advance Directive Discussion Advance Directive Discussion [facility] Start: 05-06-2024 Medicare Advantage Annual Wellness Visit Medicare Advantage Annual Wellness Visit [facility] Start: 02-14-2024 End: 05-15-2024 CBC W Auto Differential panel - Blood COMPLETE BLOOD COUNT AND DIFFERENTIAL Lab Routine Bilateral pulmonary embolism (HCC) Expected: 02/14/2024, Expires: 05/15/2024 [facility] Work Phone: Comment on above: Expected: 02/14/2024, Expires: Start: 02-14-2024 End: 05-15-2024 Comprehensive metabolic 2000 panel - Serum or Plasma COMPREHENSIVE METABOLIC PANEL Lab Routine Bilateral pulmonary embolism (HCC) Expected: 02/14/2024, Expires: 05/15/2024 [facility] Comment on above: Expected: 02/14/2024, Expires: Start: 02-14-2024 End: 02-14-2024 Patient encounter procedure 02/14/2024 11:00 AM EDT Office Visit [facility] [place] [address] [place] [address] 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 APRN.REELING MACHINE OPERATOR [address] [place] [address] [facility] FU d/c 02-07-24 SOB dx with blood clots [facility] Comment on above: [facility] FU d/c 02-07-24 SOB dx with blood carlos eduardo ts Start: 02-01-2024 End: 05-02-2024 Thyrotropin [Units/volume] in Serum or Plasma THYROID STIMULATING HORMONE Lab Routine Hypothyroidism, acquired Expected: 02/01/2024, Expires: 05/02/2024 [facility] Comment on above: Expected: 02/01/2024, Expires: Start: 02-01-2024 End: 05-02-2024 Thyroxine (T4) free [Mass/volume] in Serum or Plasma T4 FREE/FREE THYROXINE Lab Routine Hypothyroidism, acquired Expected: 02/01/2024, Expires: 05/02/2024 [facility] Comment on above: Expected: 02/01/2024, Expires: Start: 01-16-2024 End: 01-16-2024 Patient encounter procedure 01/16/2024 1:00 PM EDT Office Visit Cardiology [address] [place] [address] Palpitations [R00.2]; PVC (premature ventricular contraction) [I49.3]; SOB (shortness of breath) [R06.02]; Leg swelling [M79.89] Cardiology Comment on above: Palpitations [R00.2]; PVC (premature dex tricular contraction) [I49.3]; SOB (shortness of breath) [R06.02]; Leg swelling [M79.89] Start: 01-05-2024 Covid-19 Vaccine ( season) Covid-19 Vaccine () [facility] Start: 01-05-2024 Covid-19 Vaccine ( season) Covid-19 Vaccine () [facility] Start: 01-05-2024 Influenza vaccination [facility] Start: 12-24-2023 End: 12-24-2023 Patient encounter procedure 12/24/2023 3:00 PM EDT Office Visit Urology [address] [address] Maty Nolasco, 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 [address] [place] [address] Microscopic hematuria [R31.29] Urology Comment on above: Microscopic hematuria [R31.29] Start: 12-16-2023 End: 12-16-2023 Patient encounter procedure 12/16/2023 10:45 AM EDT Appointment Radiology [address] [place] [address] Microscopic hematuria [R31.29] Radiology Comment on above: Microscopic hematuria [R31.29] Start: 12-10-2023 End: 03-10-2024 Bacteria identified in Urine by Culture [facility] Work Phone: Comment on above: Expected: 12/10/2023, Expires: Start: 12-10-2023 End: 03-10-2024 Urinalysis complete panel - Urine [facility] Comment on above: Expected: 12/10/2023, Expires: Start: 12-02-2023 End: 03-02-2024 25-hydroxyvitamin D3 [Mass/volume] in Serum or Plasma VITAMIN D 25 HYDROXY Lab Routine Vitamin D deficiency Expected: 12/02/2023, Expires: 03/02/2024 [facility] Comment on above: Expected: 12/02/2023, Expires: Start: 12-02-2023 End: 03-02-2024 Comprehensive metabolic 2000 panel - Serum or Plasma COMPREHENSIVE METABOLIC PANEL Lab Routine Type 2 diabetes mellitus with hyperglycemia, with long-term current use of insulin (HCC) Expected: 12/02/2023, Expires: 03/02/2024 [facility] Work Phone: Comment on above: Expected: 12/02/2023, Expires: Start: 12-02-2023 End: 03-02-2024 Hemoglobin A1c in Blood HEMOGLOBIN A1C Lab Routine Type 2 diabetes mellitus with hyperglycemia, with long-term current use of insulin (HCC) Expected: 12/02/2023, Expires: 03/02/2024 [facility] Comment on above: Expected: 12/02/2023, Expires: Start: 12-02-2023 End: 03-02-2024 Lipid 1996 panel - Serum or Plasma LIPID PANEL BASIC Lab Routine Hypertriglyceridemia Expected: 12/02/2023, Expires: 03/02/2024 [facility] Comment on above: Expected: 12/02/2023, Expires: Start: 12-02-2023 End: 03-02-2024 Thyrotropin [Units/volume] in Serum or Plasma THYROID STIMULATING HORMONE Lab Routine Hypothyroidism, acquired Expected: 12/02/2023, Expires: 03/02/2024 [facility] Comment on above: Expected: 12/02/2023, Expires: Start: 12-02-2023 End: 03-02-2024 Thyroxine (T4) free [Mass/volume] in Serum or Plasma T4 FREE/FREE THYROXINE Lab Routine Hypothyroidism, acquired Expected: 12/02/2023, Expires: 03/02/2024 [facility] Comment on above: Expected: 12/02/2023, Expires: Start: 12-02-2023 End: 12-02-2023 Patient encounter procedure 12/02/2023 10:45 AM EDT Appointment Radiology [address] [place] [address] Microscopic hematuria [R31.29] Radiology Comment on above: Microscopic hematuria [R31.29] Start: 12-02-2023 End: 12-02-2023 Patient encounter procedure 12/02/2023 9:40 AM EDT Office Visit [facility] [place] [address] [place] [address] 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 APRN.REELING MACHINE OPERATOR [address] [place] [address] medicare wellness-pt has u/s appt at [place] at [address] [facility] [place] Comment on above: medicare wellness-pt has u/s appt at [facility] at [address] Start: 11-29-2023 End: 11-29-2023 Patient encounter procedure 11/29/2023 2:00 PM EDT Office Visit [facility] [place] [address] [place] [address] Shankar [place] APRN.REELING MACHINE OPERATOR [address] [place] [address] physical Family Medicine [facility] Comment on above: physical Start: 11-19-2023 End: 02-18-2024 Urinalysis complete panel - Urine URINALYSIS WITH MICROSCOPIC, REFLEX CULTURE Lab Routine Urinary tract infection without hematuria, site unspecified Expected: 11/19/2023, Expires: 02/18/2024 [facility] Work Phone: Comment on above: Expected: 11/19/2023, Expires: Start: 11-18-2023 Creatinine measurement Serum Creatinine [facility] Start: 11-18-2023 Hepatitis B surface antibody level LDL CHOLESTEROL [facility] Start: 11-18-2023 SERUM CREATININE SERUM CREATININE [facility] Start: 11-09-2023 ANNUAL PCP TEAM CHRONIC DISEASE VISIT ANNUAL PCP TEAM CHRONIC DISEASE VISIT [facility] Start: 11-09-2023 COVID-19 VACCINE (#1) COVID-19 VACCINE (#1) [facility] Comment on above: Postponed from 04/07/1946 (Declined at t his time) Start: 11-09-2023 Pneumococcal Vaccine: 65+ (2 - PCV) Pneumococcal Vaccine: 65+ (2 - PCV) [facility] Comment on above: Postponed from 06/24/2021 (Declined at t his time) Start: 11-09-2023 Pneumococcal Vaccine: 65+ (2 of 2 - PCV) Pneumococcal Vaccine: 65+ (2 of 2 - PCV) [facility] Comment on above: Postponed from 06/24/2021 (Declined at t his time) Start: 11-09-2023 PNEUMOCOCCAL: 65+ (2 - PCV) PNEUMOCOCCAL: 65+ (2 - PCV) [facility] Comment on above: Postponed from 06/24/2021 (Declined at t his time) Start: 11-09-2023 SHINGRIX VACCINE (1 of 2) SHINGRIX VACCINE (1 of 2) [facility] Comment on above: Postponed from 10/07/1995 (Declined at t his time) Start: 07-06-2023 ANNUAL PCP TEAM CHRONIC DISEASE VISIT ANNUAL PCP TEAM CHRONIC DISEASE VISIT [facility] Start: 05-20-2023 Hemoglobin A1c measurement HbA1C [facility] Start: 05-20-2023 Hemoglobin A1c/Hemoglobin.total in Blood HBA1C [facility] Start: 05-06-2023 Advance Directive Discussion Advance Directive Discussion [facility] Start: 05-06-2023 Behavioral Health Screening Behavioral Health Screening [facility] Start: 04-18-2023 Hepatitis B screening URINE ALBUMIN:CREATININE RATIO [facility] Start: 04-18-2023 Hepatitis B surface antibody level LDL CHOLESTEROL [facility] Start: 04-10-2023 Glaucoma screening Dilated Retinal Exam [facility] Start: 04-10-2023 Hepatitis C antibody, confirmatory test DILATED RETINAL EXAM [facility] Start: 01-04-2023 Covid-19 Vaccine () Covid-19 Vaccine () [facility] Start: 01-04-2023 Influenza vaccination [facility] Start: 10-17-2022 Hemoglobin A1c/Hemoglobin.total in Blood HBA1C [facility] Start: 09-12-2022 Hepatitis B surface antibody level LDL CHOLESTEROL [facility] Start: 06-07-2022 ANNUAL PCP TEAM CHRONIC DISEASE VISIT ANNUAL PCP TEAM CHRONIC DISEASE VISIT [facility] Start: 05-06-2022 ADVANCE DIRECTIVE DISCUSSION ADVANCE DIRECTIVE DISCUSSION [facility] Start: 05-06-2022 DEPRESSION ASSESSMENT DEPRESSION ASSESSMENT [facility] Start: 03-15-2022 Hemoglobin A1c/Hemoglobin.total in Blood HBA1C [facility] Start: 03-13-2022 End: 05-13-2022 25-hydroxyvitamin D3 [Mass/volume] in Serum or Plasma VITAMIN D 25 HYDROXY Lab Routine Vitamin D deficiency Expected: 03/13/2022, Expires: 05/13/2022 [facility] Work Phone: Comment on above: Expected: 03/13/2022, Expires: Start: 03-13-2022 End: 05-13-2022 ALBUMIN/CREAT RATIO RND UR ALBUMIN/CREAT RATIO RND UR Lab Routine Type 2 diabetes mellitus with hyperglycemia, with long-term current use of insulin (HCC) Expected: 03/13/2022, Expires: 05/13/2022 [facility] Work Phone: Comment on above: Expected: 03/13/2022, Expires: 3 Start: 03-13-2022 End: 05-13-2022 Comprehensive metabolic 2000 panel - Serum or Plasma COMP METABOLIC PANEL Lab Routine Type 2 diabetes mellitus with hyperglycemia, with long-term current use of insulin (HCC) Expected: 03/13/2022, Expires: 05/13/2022 [facility] Work Phone: Comment on above: Expected: 03/13/2022, Expires: 3 Start: 03-13-2022 End: 05-13-2022 Hemoglobin A1c in Blood HGB A1C Lab Routine Type 2 diabetes mellitus with hyperglycemia, with long-term current use of insulin (HCC) Expected: 03/13/2022, Expires: 05/13/2022 [facility] Work Phone: Comment on above: Expected: 03/13/2022, Expires: 3 Start: 03-13-2022 End: 05-13-2022 Lipid 1996 panel - Serum or Plasma LIPID PANEL BASIC Lab Routine Type 2 diabetes mellitus with hyperglycemia, with long-term current use of insulin (HCC) Expected: 03/13/2022, Expires: 05/13/2022 [facility] Work Phone: Comment on above: Expected: 03/13/2022, Expires: 3 Start: 03-13-2022 End: 05-13-2022 Thyrotropin [Units/volume] in Serum or Plasma TSH BLD Lab Routine Hypothyroidism, acquired Expected: 03/13/2022, Expires: 05/13/2022 [facility] Work Phone: Comment on above: Expected: 03/13/2022, Expires: 3 Start: 03-02-2022 COVID-19 VACCINE (#1) COVID-19 VACCINE (#1) [facility] Comment on above: Postponed from 1950 (Declined at t his time) Postponed from 04/07 (Declined at this time) Start: 03-02-2022 COVID-19 VACCINE (1) COVID-19 VACCINE (1) [facility] Comment on above: Postponed from 1950 (Declined at t his time) Start: 01-04-2022 Influenza vaccination [facility] Start: 12-18-2021 End: 02-17-2022 Urinalysis complete panel - Urine [facility] Work Phone: Comment on above: Expected: 12/18/2021, Expires: Start: 12-06-2021 Complete blood count Hemoglobin/Hematocrit [facility] Start: 12-06-2021 HEMOGLOBIN/HEMATOCRIT HEMOGLOBIN/HEMATOCRIT [facility] Start: 10-17-2021 ANNUAL PCP TEAM CHRONIC DISEASE VISIT ANNUAL PCP TEAM CHRONIC DISEASE VISIT [facility] Start: 10-17-2021 Hepatitis B screening URINE ALBUMIN:CREATININE RATIO [facility] Start: 10-17-2021 Hepatitis B surface antibody level LDL CHOLESTEROL [facility] Start: 08-31-2021 Hemoglobin A1c/Hemoglobin.total in Blood HBA1C [facility] Start: 08-16-2021 Bacteria identified in Urine by Culture Urine Culture [facility] Work Phone: Start: 06-24-2021 Pneumococcal Vaccine: 50+ (2 of 2 - PCV) Pneumococcal Vaccine: 50+ (2 of 2 - PCV) [facility] Start: 06-24-2021 Pneumococcal Vaccine: 65+ (2 of 2 - PCV) Pneumococcal Vaccine: 65+ (2 of 2 - PCV) [facility] Start: 06-24-2021 PNEUMOCOCCAL: 65+ (2 - PCV) PNEUMOCOCCAL: 65+ (2 - PCV) [facility] Start: 06-21-2021 Adult depression screening assessment DEPRESSION SCREENING [facility] Start: 06-21-2021 ANNUAL PCP TEAM CHRONIC DISEASE VISIT ANNUAL PCP TEAM CHRONIC DISEASE VISIT [facility] Start: 06-21-2021 PNEUMOVAX AGE 65 AND OVER WITH 5YR LOOKBACK (#1) PNEUMOVAX AGE 65 AND OVER WITH 5YR LOOKBACK (#1) [facility] Comment on above: Postponed from 2010 (Declined at t his time) Start: 05-06-2021 ADVANCE DIRECTIVE DISCUSSION ADVANCE DIRECTIVE DISCUSSION [facility] Start: 05-06-2021 DEPRESSION ASSESSMENT DEPRESSION ASSESSMENT [facility] Start: 04-18-2021 Hemoglobin A1c/Hemoglobin.total in Blood HBA1C [facility] Start: 01-17-2021 End: 10-17-2021 Hemoglobin A1c/Hemoglobin.total in Blood HGB A1C Lab Routine Type 2 diabetes mellitus with diabetic polyneuropathy, with long-term current use of insulin (HCC) Expected: 01/17/2021, Expires: 10/17/2021 [facility] Comment on above: Expected: 01/17/2021, Expires: Start: 01-04-2021 Influenza vaccination [facility] Start: 11-02-2020 Influenza vaccination INFLUENZA (#1) [facility] Comment on above: Postponed from 01/05/2020 (Declined at t his time) Start: 10-17-2020 End: 10-17-2021 VITAMIN D 25 HYDROXY VITAMIN D 25 HYDROXY Lab Routine Vitamin D deficiency Expected: 10/17/2020, Expires: 10/17/2021 [facility] Comment on above: Expected: 10/17/2020, Expires: Start: 2020 RSV Vaccine (1 - 1-dose 75+ series) RSV Vaccine (1 - 1-dose 75+ series) [facility] Start: 2010 BONE DENSITY BONE DENSITY [facility] Start: 2010 Bone Density Screening Bone Density Screening [facility] Start: 2010 Screening for osteoporosis Bone Density Screening [facility] Start: 2005 Hepatitis B Vaccine (1 of 3 - Risk 3-dose series) Hepatitis B Vaccine (1 of 3 - Risk 3-dose series) [facility] Start: 2005 RSV Vaccine (1 - 1-dose 60+ series) RSV Vaccine (1 - 1-dose 60+ series) [facility] Start: 10-07-1995 Screening for malignant neoplasm of colon [facility] Start: 10-07-1995 SHINGRIX VACCINE (1 of 2) SHINGRIX VACCINE (1 of 2) [facility] Start: 1990 COLOGUARD (FIT-DNA) COLOGUARD (FIT-DNA) [facility] Start: 1990 Colonoscopy COLONOSCOPY [facility] Start: [address] COLONOGRAPHY [facility] Start: 1990 FECAL OCCULT BLOOD FECAL OCCULT BLOOD [facility] Start: 1990 SIGMOIDOSCOPY SIGMOIDOSCOPY [facility] Start: 1985 Mammography MAMMOGRAM [facility] Start: 10-07-1963 Anxiety Screening Anxiety Screening [facility] Start: 10-07-1963 BP CONTROLLED (<130/80) BP CONTROLLED (<130/80) [facility] Start: 10-07-1963 Depression Screening Depression Screening [facility] Start: 10-07-1963 Hepatitis B surface antibody level LDL CHOLESTEROL [facility] Start: 10-07-1963 HEPATITIS C SCREENING HEPATITIS C SCREENING [facility] Start: 1957 COVID-19 VACCINE (1) COVID-19 VACCINE (1) [facility] Start: 10-07-1955 [object Object] DIABETIC FOOT EXAM [facility] Start: 10-07-1955 Diabetic foot examination Diabetic Foot Exam [facility] Start: 10-07-1955 Hepatitis B screening URINE ALBUMIN:CREATININE RATIO [facility] Start: 10-07-1955 Hepatitis C antibody, confirmatory test DILATED RETINAL EXAM [facility] Start: 1950 HbA1c (Bld) [Mass fraction] HBA1C [facility] Start: 04-07-1946 COVID-19 VACCINE (#1) COVID-19 VACCINE (#1) [facility] End: 06-21-2021 ALBUMIN/CREAT RATIO RND UR ALBUMIN/CREAT RATIO RND UR Lab Routine Type 2 diabetes mellitus with diabetic polyneuropathy, with long-term current use of insulin (HCC) 1 Occurrences starting 06/21/2020 until 06/21/2021 [facility] Comment on above: 1 Occurrences starting 06/21/2020 until 06/21/2021 Bacteria identified in Urine by Culture URINE CULTURE Microbiology Routine Painful urination Ordered: 10/13/2021 [facility] Work Phone: Comment on above: Ordered: 10/13/2021 Bacteria identified in Urine by Culture URINE CULTURE Microbiology Routine Acute cystitis with hematuria 07/05/2022 10:54 AM EST [facility] Work Phone: Bacteria identified in Urine by Culture URINE CULTURE Microbiology Routine Burning with urination Ordered: 02/21/2023 [facility] Work Phone: Comment on above: Ordered: 02/21/2023 Bacteria identified in Urine by Culture URINE CULTURE Microbiology Routine Increased urinary frequency 12/02/2023 10:21 AM EDT [facility] Bacteria identified in Urine by Culture BACTERIAL CULTURE, URINE Microbiology Routine Dysuria 12/03/2024 3:01 PM EDT [facility] Work Phone: Bacteria identified in Urine by Culture BACTERIAL CULTURE, URINE Microbiology Routine Recurrent UTI (urinary tract infection) 12/28/2024 2:59 PM EDT [facility] End: 06-20-2021 Comprehensive metabolic 2000 panel COMP METABOLIC PANEL Lab Routine Type 2 diabetes mellitus with diabetic polyneuropathy, with long-term current use of insulin ([facility]) 1 Occurrences starting 06/21/2020 until 06/20/2021 [facility] Comment on above: 1 Occurrences starting 06/21/2020 until 06/20/2021 End: 10-17-2021 Comprehensive metabolic 2000 panel - Serum or Plasma COMP METABOLIC PANEL Lab Routine Type 2 diabetes mellitus with diabetic polyneuropathy, with long-term current use of insulin ([facility]) 1 Occurrences starting 10/17/2020 until 10/17/2021 [facility] Comment on above: 1 Occurrences starting 10/17/2020 until 10/17/2021 End: 07-20-2021 Dxa bone density study 1/> sites axial skel DXA-AXIAL SKELETON Radiology Routine Asymptomatic menopause 1 Occurrences starting 06/21/2020 until 07/20/2021 [facility] Comment on above: 1 Occurrences starting 06/21/2020 until 07/20/2021 End: 01-01-2025 ECG COMPLETE ECG COMPLETE ECG Routine Cardiac arrhythmia, unspecified cardiac arrhythmia type 1 Occurrences starting 01/02/2024 until 01/01/2025 [facility] Work Phone: Comment on above: 1 Occurrences starting 01/02/2024 until 01/01/2025 End: 01-01-2025 Echocardiography ECHO Cardiology Routine Palpitations PVC (premature ventricular contraction) SOB (shortness of breath) Leg swelling 1 Occurrences starting 01/02/2024 until 01/01/2025 [facility] Work Phone: Comment on above: 1 Occurrences starting 01/02/2024 until 01/01/2025 End: 06-21-2021 HbA1c (Bld) [Mass fraction] HGB A1C Lab Routine Type 2 diabetes mellitus with diabetic polyneuropathy, with long-term current use of insulin ([facility]) 1 Occurrences starting 06/21/2020 until 06/21/2021 [facility] Comment on above: 1 Occurrences starting 06/21/2020 until 06/21/2021 End: 06-20-2021 HCV Ab Ql (S) HEP C AB IA W/CONF SCRN Lab Routine Special screening examination for viral disease 1 Occurrences starting 06/21/2020 until 06/20/2021 [facility] Comment on above: 1 Occurrences starting 06/21/2020 until 06/20/2021 End: 06-20-2021 LIPID PANEL BASIC LIPID PANEL BASIC Lab Routine Hypertriglyceridemia 1 Occurrences starting 06/21/2020 until 06/20/2021 [facility] Comment on above: 1 Occurrences starting 06/21/2020 until 06/20/2021 End: 10-17-2021 LIPID PANEL BASIC LIPID PANEL BASIC Lab Routine Type 2 diabetes mellitus with diabetic polyneuropathy, with long-term current use of insulin (HCC) 1 Occurrences starting 10/17/2020 until 10/17/2021 [facility] Comment on above: 1 Occurrences starting 10/17/2020 until 10/17/2021 Patient Education ED CYSTITIS Female Adul t [facility] Work Phone: Patient referral [facility] Work Phone: End: 07-20-2021 Screening mammography bi 2-view breast inc cad LUANNE SCREENING Radiology Routine 1 Occurrences starting 06/21/2020 until 07/20/2021 [facility] Comment on above: 1 Occurrences starting 06/21/2020 until 07/20/2021 End: 10-17-2021 Thyrotropin [Units/volume] in Serum or Plasma TSH BLD Lab Routine Hypothyroidism, acquired 1 Occurrences starting 10/17/2020 until 10/17/2021 [facility] Comment on above: 1 Occurrences starting 10/17/2020 until 10/17/2021 End: 12-24-2024 US Kidney - bilateral and Urinary bladder US KIDNEY/BLADDER Radiology Routine Microscopic hematuria Recurrent UTI (urinary tract infection) 1 Occurrences starting 11/25/2023 until 12/24/2024 [facility] Work Phone: Comment on above: 1 Occurrences starting 11/25/2023 until 12/24/2024 End: 06-21-2021 VITAMIN D 25 HYDROXY VITAMIN D 25 HYDROXY Lab Routine Vitamin D deficiency 1 Occurrences starting 06/21/2020 until 06/21/2021 [facility] Comment on above: 1 Occurrences starting 06/21/2020 until 06/21/2021 [facility] Immunizations Immunization Date Immunization Notes Care Provider Marlys mckenzie 06-24-2020 pneumococcal polysac charide vaccine, 23 valent Nurse Alan [facility] 10-14-2014 tetanus toxoid, redu desmond diphtheria toxoid, and acellular pertussis vaccine, adsorbed Kassi Young [facility] Payers Date Payer Category Payer Self-pay [id number] 2021 Medicare HUMANA MEDICARE HUMANA GOLD PLUS [id number] 2021-Present [phone] [place] [id number] O [id number] 2021 Medicare (Managed Care) HUMANA G OLD PLUS [id number] 2021 Medicare [id number] 2020 Medicare [id number] Unknown [id number] Unknown [id number] Unknown [id number]. [id number] Unknown [id number]. 2.462 Unknown [id number]. 2.462 Unknown [id number]. 2.462 Unknown [id number]. 2.462 Unknown [id number]. 2.462 Unknown [id number]. 2.462 Unknown [id number]. 2.462 Unknown [id number]. 2.462 Unknown [id number]. 2.462 Unknown [id number]. [id number] Unknown [id number] [id number] Social History Date Type Detail Facility Start: 06-21-2020 End: 04-10-2022 Tobacco smoking status NJIS Never smoker [facility] Start: 06-21-2020 End: 04-10-2022 Tobacco use and exposure Never used [facility] Start: 06-21-2020 End: 12-28-2024 Alcohol intake Lifetime non-drinker (finding) [facility] Start: 06-21-2020 History SDOH Alcohol Frequency 1 [facility] Start: 06-21-2020 History SDOH Education 13 [facility] Start: 1945 Sex Assigned At Female [facility] Start: 10-03-2021 End: 10-13-2021 Exposure to SARS-CoV-2 (event) Not sure [facility] Start: 08-16-2021 Tobacco smoking stat us NJIS Unknown if ever smoked [facility] Work Phone: Start: 11-08-2022 End: 02-14-2024 History of Social function [facility] Work Phone: Start: 11-08-2022 End: 02-14-2024 Tobacco use panel [facility] Work Phone: Start: 12-19-2017 Adult Depression Screening Assessment 2 [facility] Work Phone: Start: 06-21-2020 Gender identity Identifies as female gender (finding) [facility] Work Phone: Start: 06-21-2020 Sexual orientation Heterosexual (concha fragoso) [facility] Work Phone: How often to you hav e a drink containing alcohol? Never [facility] Mental Status Date Assessment Result Facility 08-16-2021 Cognitive function Level Of Cons ciousness Awake;Alert;Appropriate;Follow s Commands [facility] Work Phone: Clinical Notes 06-21-2020 to 12-31-2024 Telephone Encounter - Nury Gagnon MA - 12/31/2024 10:01 AM EDTTelephone Encounter - Nury Gagnon MA - 12/31/2024 10:01 AM EDTTelephone Encounter - Nury Gagnon MA - 12/31/2024 9:59 AM EDT Note Date & Type Note Facility 12-31-2024 Telephone encounter Note Patient was made aware of the results. Patient verbalizes understanding. Nury Gagnon Ma [facility] 12-31-2024 Miscellaneous Notes Patient was made aware of the results. Patient verbalizes understanding. Nury Gagnon Ma ----- Message from Lindsay Wyatt sent at 12/31/2024 9:08 AM EDT ----- Please let patient know that she has a urinary tract infection with E. coli. Ceftin I gave her should be effective in eradicating this bacteria. Please recheck urine once antibiotic is complete. An order has been placed. ----- Message ----- From: Lab, Background User Sent: 12/30/2024 10:03 AM EDT To: Lindsay Wyatt APRN.CNP Please let patient know that she has a urinary tract infection with E. coli. Ceftin I gave her should be effective in eradicating this bacteria. Please recheck urine once antibiotic is complete. An order has been placed. documented in this encounter [facility] 12-31-2024 Telephone encounter Note ----- Message from Lindsay Wyatt sent at 12/31/2024 9:08 AM EDT ----- Please let patient know that she has a urinary tract infection with E. coli. Ceftin I gave her should be effective in eradicating this bacteria. Please recheck urine once antibiotic is complete. An order has been placed. ----- Message ----- From: Lab, Background User Sent: 12/30/2024 10:03 AM EDT To: Lindsay Wyatt APRN.CNP [facility] 12-31-2024 Progress note Formatting of t his note might be different from the original. Please let patient know that she has a urinary tract infection with E. coli. Ceftin I gave her should be effective in eradicating this bacteria. Please recheck urine once antibiotic is complete. An order has been placed. [facility] 12-29-2024 Telephone encounter Note Patient calling aware rx's were just sent to the pharmacy via escript. May take a while before pharmacy get it, advised to check with pharmacy in about an hour, with understanding. [facility] 12-29-2024 Miscellaneous Notes Patient calling aware rx's were just sent to the pharmacy via escript. May take a while before pharmacy get it, advised to check with pharmacy in about an hour, with understanding. Resent Patient calling said pharmacy did not get 2 of the rx's that were sent yesterday. Computer shows escript failed. Reset antibiotic and generic pyridium rx to file. Please advise The patient has been identified by name and date of : Yes Caregiver verified no other encounters exist for this prescription request: Yes Caregiver confirmed with patient/requestor that no other refills are due, in the near future, with this provider at this time: Yes The last office visit in the department: 12/28/2024 Does the patient have a future office visit with this provider/department: Yes 07/01/2025 Requested Prescriptions Pending Prescriptions Disp Refills cefUROXime (CEFTIN) 250 mg tablet 20 tablet 0 Sig: Take 1 tablet by mouth two times a day for 10 days. phenazopyridine (PYRIDIUM) 100 mg tablet 15 tablet 0 Sig: Take 1 tablet by mouth three times a day as needed for up to 5 days. Melissa Castro LPN December 29, 2024 1:29 PM documented in this encounter [facility] 12-29-2024 Telephone encounter Note Resent [facility] 12-29-2024 Telephone encounter Note Patient calling said pharmacy did not get 2 of the rx's that were sent yesterday. Computer shows escript failed. Reset antibiotic and generic pyridium rx to file. Please advise The patient has been identified by name and date of : Yes Caregiver verified no other encounters exist for this prescription request: Yes Caregiver confirmed with patient/requestor that no other refills are due, in the near future, with this provider at this time: Yes The last office visit in the department: 12/28/2024 Does the patient have a future office visit with this provider/department: Yes 07/01/2025 Requested Prescriptions Pending Prescriptions Disp Refills cefUROXime (CEFTIN) 250 mg tablet 20 tablet 0 Sig: Take 1 tablet by mouth two times a day for 10 days. phenazopyridine (PYRIDIUM) 100 mg tablet 15 tablet 0 Sig: Take 1 tablet by mouth three times a day as needed for up to 5 days. Melissa Castro LPN December 29, 2024 1:29 PM [facility] 12-28-2024 Telephone encounter Note Spouse notes that he is going to have to go to the hospital for 2-3 days in a month and will need someone to stay with patient. Amber spoke with patient spouse and he requests that Sw mail him home director of critical care agency brochures. Amber will mail [facility] brochures along with [facility] Older Adult Resource Guide to patient home. Amber noted the other option would be respite at a half-way facility. That info will be in [employer] Older Adult Resource Guide. Amber confirmed patient address in system. Amber will mail out resource info to patient home along with this Sw number for any further questions or needs. [facility] 12-28-2024 Miscellaneous Notes Spouse notes that he is going to have to go to the hospital for 2-3 days in a month and will need someone to stay with patient. Sw spoke with patient spouse and he requests that Sw mail him home director of critical care agency brochures. Sw will mail [facility] brochures along with [facility] Older Adult Resource Guide to patient home. Amber noted the other option would be respite at a half-way facility. That info will be in [facility] Older Adult Resource Guide. Sw confirmed patient address in system. Sw will mail out resource info to patient home along with this Sw number for any further questions or needs. Amber called patient to discuss respite care needs. No answer and vmail is full. Amber will try call another time. documented in this encounter [facility] 12-28-2024 Telephone encounter Note Amber called patient to discuss respite care needs. No answer and vmail is full. Amber will try call another time. [facility] 12-28-2024 Instructions Lindsay Wyatt APRN.REELING MACHINE OPERATOR - 12/28/2024 2:30 PM EDT - Resume the ceftin 250 mg 2 x day prescription you began and take it as directed until your urine culture results come back. - Provide a urine sample for culture today before you leave the clinic. - Stop taking the potassium supplement, as your blood potassium level has been running high. - Hold (stop) the Lasix for now until we reassess. - Continue your thyroid replacement (levothyroxine) at the same dose; prescription has been renewed. - Start a vitamin B12 supplement of at least 500 mcg daily to correct your deficiency, support your blood count, and help with any numbness or tingling. - When you check your blood sugar: aim for post-meal readings below 180 mg/dL and fasting (before breakfast) readings below 150 mg/dL. 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 Will send 3- 50 mg tablets to take daily. documented in this encounter [facility] 12-28-2024 Note HNO ID: [id number] Author: LINDSAY WYATT APRN.CNP Service: ? Author Type: Nurse Practitioner Type: Progress Notes Filed: 12/28/2024 14:33 Note Text: This is a 79 year old female who presents today with: Patient presents with: 6 Month Exam HISTORY OF PRESENT ILLNESS: Tarik Baker is a 79 year old female. Patient presents with: 6 Month Exam Alejandra Baker is a 79-year-old female with a history of anxiety, DM, and hypothyroidism, presenting for evaluation of recurrent urinary symptoms and fatigue. Urinary Symptoms: - Recurrent urinary symptoms after running out of medication. - Reports dysuria and hematuria. - Recent urine sample submitted; unsure if it was processed. Fatigue: - Reports significant fatigue, stating she wanted to sleep all day and all night. - Not currently experiencing fatigue. B12 Deficiency: - History of chronic B12 deficiency. - Previously took B12 supplements but not currently taking them. - Consumes a B-complex vitamin. Anxiety: - History of anxiety, managed with Zoloft. - Recent anxiety attack requiring an additional dose of medication. - Increased stress due to 's upcoming heart surgery and concerns about finding someone to stay with her during his absence. Vision Impairment: - Legally blind in the left eye; can perceive light but not objects. - Has a cataract in the right eye; has not seen an eye doctor recently. - Able to watch TV without difficulty. Diabetes Mellitus: - Monitors blood glucose levels daily, primarily in the evening after dinner. - Does not check blood glucose levels in the morning. - Dinner is usually between 17:00 and 18:00; bedtime around 02:00. Hypothyroidism: - On thyroid replacement therapy. PAST MEDICAL HISTORY: PAST MEDICAL HISTORY Diagnosis Date Diabetes (HCC) Essential hypertension History of cardiovascular stress test 12/2020 ef 60, no ischemia PAST SURGICAL HISTORY Procedure Laterality Date TUBAL LIGATION HX ALLERGIES Prednisone MEDICATIONS Current Outpatient Medications Medication Sig insulin NPH injection 25 units in the am and 25 units in the pm. potassium chloride ER (KLOR-CON) 20 mEq tablet Take 20 mEq by mouth once daily. Started by Cardio due to being on Lasix apixaban (ELIQUIS) 5 mg tab(s) Take 1 tablet by mouth two times a day. enalapril (VASOTEC) 20 mg tablet Take 1 tablet by mouth once daily. ergocalciferol 50,000 unit capsule (VITAMIN D2, DRISDOL) Take 1 capsule by mouth one time a week. Fenofibrate (LOFIBRA) 160 mg tablet Take 1 tablet by mouth once daily. furosemide (LASIX) 20 mg tablet Take 1 tablet by mouth once daily. levothyroxine (SYNTHROID) 175 mcg tablet Take 1 tablet by mouth once daily. Take on empty stomach. For Thyroid. metoprolol tartrate, short acting, (LOPRESSOR) 25 mg tablet Take 1 tablet by mouth two times a day. sertraline (ZOLOFT) 100 mg tablet Take 1 tablet by mouth once daily. red beet root-sour raines ext 250-0.5 mg chew Take 1 tablet by mouth once daily. vit A,C,Y-Sode-Vxznyv (PRESERVISION AREDS) 2,148 mcg-113 mg-45 mg-17.4mg tab Take 1 tablet by mouth daily with breakfast. multivitamin with minerals (MULTIPLE VITAMINS 55 PLUS ORAL) Take 1 capsule by mouth once daily. Ascorbic Acid (VITAMIN C) 100 mg tablet ZINC ORAL Take by mouth. apixaban (ELIQUIS) 5 mg tab(s) Take 1 tablet by mouth two times a day. No current facility-administered medications for this visit. FAMILY HISTORY Problem Relation Age of Onset No Known Problems Mother No Known Problems Father No Known Problems Maternal Grandmother No Known Problems Maternal Grandfather No Known Problems Paternal Grandmother No Known Problems Paternal Grandfather SOCIAL HISTORY[1] REVIEW OF SYSTEMS Constitutional: (-) weight loss, (-) weight gain, (-) fever Head: (-) headache Eyes: (+) decreased vision left eye, (-) visual changes Neck: (-) neck swelling Cardiovascular: (+) intermittent chest pain, (+) palpitations, (-) leg swelling Respiratory: (-) dyspnea, (-) cough, (-) wheezing Gastrointestinal: (-) nausea, (-) vomiting Genitourinary: (+) dysuria, (+) urinary pain Musculoskeletal: (-) arthralgia Neurological: (+) gait instability, (+) intermittent foot numbness, (-) syncope, (-) seizures, (-) tremor Psychiatric: (+) decreased interest, (+) anxiety Endocrine: (-) polydipsia EXAM: BP 138/70 Pulse 74 SpO2 98% PHYSICAL EXAM: GENERAL: NAD, alert and oriented x3. SKIN: Unremarkable, no rash or skin lesions. Dry skin on feet and legs. HEAD: Normocephalic. NECK: Supple, no lymphadenopathy, normal thyroid, no carotid bruits. LUNGS: Clear to auscultation bilaterally, no wheezes/rhonchi/rales. HEART: Regular rate and rhythm, soft ROSITA @ sternal border. No ectopy. EXTREMITIES: Normal, no deformities, no skin discoloration, minimal edema noted. NEURO: Awake, alert and oriented x3, cranial nerves II-XII grossly intact, unsteady gait- (more content not included)... [facility] 12-28-2024 History of Present illness Narrative This is a 79 year old female who presents today with: Patient presents with: 6 Month Exam HISTORY OF PRESENT ILLNESS: Tarik Baker is a 79 year old female. Patient presents with: 6 Month Exam Alejandra Baker is a 79-year-old female with a history of anxiety, DM, and hypothyroidism, presenting for evaluation of recurrent urinary symptoms and fatigue. Urinary Symptoms: - Recurrent urinary symptoms after running out of medication. - Reports dysuria and hematuria. - Recent urine sample submitted; unsure if it was processed. Fatigue: - Reports significant fatigue, stating she wanted to sleep all day and all night. - Not currently experiencing fatigue. B12 Deficiency: - History of chronic B12 deficiency. - Previously took B12 supplements but not currently taking them. - Consumes a B-complex vitamin. Anxiety: - History of anxiety, managed with Zoloft. - Recent anxiety attack requiring an additional dose of medication. - Increased stress due to 's upcoming heart surgery and concerns about finding someone to stay with her during his absence. Vision Impairment: - Legally blind in the left eye; can perceive light but not objects. - Has a cataract in the right eye; has not seen an eye doctor recently. - Able to watch TV without difficulty. Diabetes Mellitus: - Monitors blood glucose levels daily, primarily in the evening after dinner. - Does not check blood glucose levels in the morning. - Dinner is usually between 17:00 and 18:00; bedtime around 02:00. Hypothyroidism: - On thyroid replacement therapy. PAST MEDICAL HISTORY: PAST MEDICAL HISTORY Diagnosis Date Diabetes (HCC) Essential hypertension History of cardiovascular stress test 12/2020 ef 60, no ischemia PAST SURGICAL HISTORY Procedure Laterality Date TUBAL LIGATION HX ALLERGIES Prednisone MEDICATIONS Current Outpatient Medications Medication Sig insulin NPH injection 25 units in the am and 25 units in the pm. potassium chloride ER (KLOR-CON) 20 mEq tablet Take 20 mEq by mouth once daily. Started by Cardio due to being on Lasix apixaban (ELIQUIS) 5 mg tab(s) Take 1 tablet by mouth two times a day. enalapril (VASOTEC) 20 mg tablet Take 1 tablet by mouth once daily. ergocalciferol 50,000 unit capsule (VITAMIN D2, DRISDOL) Take 1 capsule by mouth one time a week. Fenofibrate (LOFIBRA) 160 mg tablet Take 1 tablet by mouth once daily. furosemide (LASIX) 20 mg tablet Take 1 tablet by mouth once daily. levothyroxine (SYNTHROID) 175 mcg tablet Take 1 tablet by mouth once daily. Take on empty stomach. For Thyroid. metoprolol tartrate, short acting, (LOPRESSOR) 25 mg tablet Take 1 tablet by mouth two times a day. sertraline (ZOLOFT) 100 mg tablet Take 1 tablet by mouth once daily. red beet root-sour raines ext 250-0.5 mg chew Take 1 tablet by mouth once daily. vit A,C,O-Kmpe-Wzpeic (PRESERVISION AREDS) 2,148 mcg-113 mg-45 mg-17.4mg tab Take 1 tablet by mouth daily with breakfast. multivitamin with minerals (MULTIPLE VITAMINS 55 PLUS ORAL) Take 1 capsule by mouth once daily. Ascorbic Acid (VITAMIN C) 100 mg tablet ZINC ORAL Take by mouth. apixaban (ELIQUIS) 5 mg tab(s) Take 1 tablet by mouth two times a day. No current facility-administered medications for this visit. FAMILY HISTORY Problem Relation Age of Onset No Known Problems Mother No Known Problems Father No Known Problems Maternal Grandmother No Known Problems Maternal Grandfather No Known Problems Paternal Grandmother No Known Problems Paternal Grandfather SOCIAL HISTORY[1] REVIEW OF SYSTEMS Constitutional: (-) weight loss, (-) weight gain, (-) fever Head: (-) headache Eyes: (+) decreased vision left eye, (-) visual changes Neck: (-) neck swelling Cardiovascular: (+) intermittent chest pain, (+) palpitations, (-) leg swelling Respiratory: (-) dyspnea, (-) cough, (-) wheezing Gastrointestinal: (-) nausea, (-) vomiting Genitourinary: (+) dysuria, (+) urinary pain Musculoskeletal: (-) arthralgia Neurological: (+) gait instability, (+) intermittent foot numbness, (-) syncope, (-) seizures, (-) tremor Psychiatric: (+) decreased interest, (+) anxiety Endocrine: (-) polydipsia EXAM: BP 138/70 Pulse 74 SpO2 98% PHYSICAL EXAM: GENERAL: NAD, alert and oriented x3. SKIN: Unremarkable, no rash or skin lesions. Dry skin on feet and legs. HEAD: Normocephalic. NECK: Supple, no lymphadenopathy, normal thyroid, no carotid bruits. LUNGS: Clear to auscultation bilaterally, no wheezes/rhonchi/rales. HEART: Regular rate and rhythm, soft ROSITA @ sternal border. No ectopy. EXTREMITIES: Normal, no deformities, no skin discoloration, minimal edema noted. NEURO: Awake, alert and oriented x3, cranial nerves II-XII grossly intact, unsteady gait- uses walker, no involuntary motions. Sensation intact in feet, slight numbness reported in one foot. LABS: reviewed recent Labs: - RBC: Low, consistent with anemia - B12: Low, consistent with deficiency - Hemoglobin A1c: 7.9 - Renal function: Decreased - Potassium: Elevated - Thyroid function: Normal - Urinalysis: - Blood present - Trace leukocytes Imaging: Tests: ASSESSMENT/PLAN: 1. Recurrent UTI (urinary tract infection) (N39.0) - Symptoms recurred after running out of previous medication; urinalysis showed hematuria and trace leukocytes. - Resume ceftin 250 mg 2 x day as previously prescribed. - Urine culture ordered; will adjust antibiotics if indicated by culture results. 2. Screening for depression (Z13.31) 3. Encounter for screening examination for other mental health and behavioral disorders (Z13.39) - Patient reports ongoing anxiety, currently managed with Zoloft; recent increase in anxiety attributed to 's upcoming heart surgery and concerns about being left alone. - Wants to increase sertraline. Now on 100 mg daily. Will increase to 150 mg daily. 4. Hypertriglyceridemia (E78.1) - on fenofibrate 5. Bilateral pulmonary embolism (HCC) (I26.99) - on apixaban 6. Hypothyroidism, acquired (E03.9) - Thyroid function tests within normal limits. - Continue current thyroid replacement therapy; prescription renewed at same dose. 7. Primary hypertension (I10) - Blood pressure within acceptable range. 8. Type 2 diabetes mellitus with hyperglycemia, with long-term current use of insulin (HCC) (E11.65) - HbA1c elevated at 7.9%. - Patient checks blood glucose daily, usually at bedtime after dinner; advised to check fasting glucose in the morning before breakfast, with a target of less than 150 mg/dL. - Advised to discontinue potassium supplementation due to consistently elevated potassium levels. 9. History of non-ST elevation myocardial infarction (NSTEMI) (I25.2) - Occasional brief chest pain and palpitations attributed to atrial fibrillation. - on apixaban 10. Vitamin D deficiency (E55.9) - on replacement Discussed treatment plan and patient voices understanding. Patient's questions answered appropriately. Medications and potential side effects were discussed and patient voices understanding. Return to the office as scheduled or as needed for worsening/no improvement. 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 Service: ? Author Type: ? Type: Progress Notes Filed: 12/18/2024 12:58 Note Text: POPULATION HEALTH NAVIGATION OUTREACH Action/FYI Patient outreach for HM due; AWV, MANISHA Letter was sent in November Reason for Outreach Care Gap/HCC or Scheduling Wellness Visits Care Gaps due: Medicare Annual Wellness Visit Diabetic Eye Exam Patient Contacted: Unable or unnecessary to reach patient: Unable to leave message Navigation Signature: Ayleen Chawla December 18, 2024 12:55 PM [facility] 12-18-2024 History of Present illness Narrative POPULATION HEALTH NAVIGATION OUTREACH Action/FYI Patient outreach for HM due; AWV, MANISHA Letter was sent in November Reason for Outreach Care Gap/HCC or Scheduling Wellness Visits Care Gaps due: Medicare Annual Wellness Visit Diabetic Eye Exam Patient Contacted: Unable or unnecessary to reach patient: Unable to leave message Navigation Signature: Ayleen Chawla December 18, 2024 12:55 PM documented in this encounter [facility] 12-18-2024 Note Patient Outreach (NE TNAV) TARIK BAKER ([id number]) 1945 F Date Time Provider Department 12/18/24 ZAC LINTON During your visit today, we recorded the following information about you: Ayleen Bennett 12/18/2024 12:58 PM Signed POPULATION HEALTH NAVIGATION OUTREACH Action/FYI Patient outreach for HM due; AWV, MANISHA Letter was sent in November Reason for Outreach Care Gap/HCC or Scheduling Wellness Visits Care Gaps due: Medicare Annual Wellness Visit Diabetic Eye Exam Patient Contacted: Unable or unnecessary to reach patient: Unable to leave message Navigation Signature: Ayleen Chawla December 18, 2024 12:55 PM Allergies As of Date: 12/18/2024 Noted Allergy Reaction PREDNISONE 09/06/2015 14 - Other: See Comments Comments: Sugar went over 900 Date Reviewed: 12/03/2024 Reviewed by: Nury Gagnon MA - Fully Assessed Reason for Visit: Population Health Navigation Outreach [3910] Cmt: Aline Palacios Prescriptions as of 12/18/2024 - insulin NPH injection 25 units in the am and 25 units in the pm. - potassium chloride ER (KLOR-CON) 20 mEq tablet Take 20 mEq by mouth once daily. Started by Cardio due to being on Lasix - apixaban (ELIQUIS) 5 mg tab(s) Take 1 tablet by mouth two times a day. - apixaban (ELIQUIS) 5 mg tab(s) Take 1 tablet by mouth two times a day. - enalapril (VASOTEC) 20 mg tablet Take 1 tablet by mouth once daily. - ergocalciferol 50,000 unit capsule (VITAMIN D2, DRISDOL) Take 1 capsule by mouth one time a week. - Fenofibrate (LOFIBRA) 160 mg tablet Take 1 tablet by mouth once daily. - furosemide (LASIX) 20 mg tablet Take 1 tablet by mouth once daily. - levothyroxine (SYNTHROID) 175 mcg tablet Take 1 tablet by mouth once daily. Take on empty stomach. For Thyroid. - metoprolol tartrate, short acting, (LOPRESSOR) 25 mg tablet Take 1 tablet by mouth two times a day. - sertraline (ZOLOFT) 100 mg tablet Take 1 tablet by mouth once daily. - red beet root-sour raines ext 250-0.5 mg chew Take 1 tablet by mouth once daily. - vit A,C,M-Hqza-Xhxokt (PRESERVISION AREDS) 2,148 mcg-113 mg-45 mg-17.4mg tab Take 1 tablet by mouth daily with breakfast. - multivitamin with minerals (MULTIPLE VITAMINS 55 PLUS ORAL) Take 1 capsule by mouth once daily. - Ascorbic Acid (VITAMIN C) 100 mg tablet - ZINC ORAL Take by mouth. Problem List As Of Date 12/18/2024 Noted Resolved History of temporal arteritis [Z87.39] 09/06/2015 Type 2 diabetes mellitus with hyperglycemia, wi*09/06/2015 Diabetes (HCC) [E11.9] Hypothyroidism, acquired [E03.9] 06/21/2020 Hypertriglyceridemia [E78.1] 06/21/2020 Obesity, Class I, BMI 30-34.9 [E66.811] 06/21/2020 Vitamin D deficiency [E55.9] 06/21/2020 Primary hypertension [I10] 12/12/2020 History of non-ST elevation myocardial infarcti*04/10/2022 Chronic kidney disease, stage 3a (HCC) [N18.31] 11/08/2022 06/12/2024 Bilateral pulmonary embolism (HCC) [I26.99] 06/12/2024 Encounter Status:Closed by AYLEEN BENNETT on 12/18/24 [facility] 12-03-2024 Instructions Lindsay Wyatt APRN.CNP - 12/03/2024 1:59 PM EDT - Amoxicillin 500 mg 3 times a day until prescription complete. - After your urine culture results return on Saturday, you may receive a call to adjust your antibiotic based on the bacteria identified. - For bladder discomfort, you can use an [id number] AZO product (phenazopyridine) labeled for bladder pain; it will turn your urine bright orange and may stain clothing. - Drink plenty of water to help flush your bladder. - Include cranberry juice in your fluids to support urinary tract health. - One tablet of fluconazole 150 mg given to take if you develop a yeast infection from the antibiotic. documented in this encounter [facility] 12-03-2024 Note HNO ID: [id number] Author: LINDSAY WYATT APRN.CNP Service: ? Author Type: Nurse Practitioner Type: Progress Notes Filed: 12/03/2024 14:01 Note Text: This is a 79 year old female who presents today with: Patient presents with: UTI: urinary frequency, dysuria, chills HISTORY OF PRESENT ILLNESS: Tarik Baker is a 79 year old female. Patient presents with: UTI: urinary frequency, dysuria, chills Alejandra Baker is a 79-year-old female with a history of recurrent UTIs, presenting with dysuria. Dysuria: - Intermittent dysuria x2 weeks. - Denies hematuria. - Reports occasional chills; denies fever. - Denies weakness, but reports feeling worn out. - History of recurrent UTIs, with episodes occurring annually. - Currently taking Azo and increasing water intake. PAST MEDICAL HISTORY: PAST MEDICAL HISTORY Diagnosis Date Diabetes (HCC) Essential hypertension History of cardiovascular stress test 12/2020 ef 60, no ischemia PAST SURGICAL HISTORY Procedure Laterality Date TUBAL LIGATION HX ALLERGIES Prednisone MEDICATIONS Current Outpatient Medications Medication Sig insulin NPH injection 25 units in the am and 25 units in the pm. potassium chloride ER (KLOR-CON) 20 mEq tablet Take 20 mEq by mouth once daily. Started by Cardio due to being on Lasix apixaban (ELIQUIS) 5 mg tab(s) Take 1 tablet by mouth two times a day. enalapril (VASOTEC) 20 mg tablet Take 1 tablet by mouth once daily. ergocalciferol 50,000 unit capsule (VITAMIN D2, DRISDOL) Take 1 capsule by mouth one time a week. Fenofibrate (LOFIBRA) 160 mg tablet Take 1 tablet by mouth once daily. furosemide (LASIX) 20 mg tablet Take 1 tablet by mouth once daily. levothyroxine (SYNTHROID) 175 mcg tablet Take 1 tablet by mouth once daily. Take on empty stomach. For Thyroid. metoprolol tartrate, short acting, (LOPRESSOR) 25 mg tablet Take 1 tablet by mouth two times a day. sertraline (ZOLOFT) 100 mg tablet Take 1 tablet by mouth once daily. red beet root-sour raines ext 250-0.5 mg chew Take 1 tablet by mouth once daily. vit A,C,J-Rdrj-Dyjrxg (PRESERVISION AREDS) 2,148 mcg-113 mg-45 mg-17.4mg tab Take 1 tablet by mouth daily with breakfast. multivitamin with minerals (MULTIPLE VITAMINS 55 PLUS ORAL) Take 1 capsule by mouth once daily. Ascorbic Acid (VITAMIN C) 100 mg tablet ZINC ORAL Take by mouth. apixaban (ELIQUIS) 5 mg tab(s) Take 1 tablet by mouth two times a day. No current facility-administered medications for this visit. FAMILY HISTORY Problem Relation Age of Onset No Known Problems Mother No Known Problems Father No Known Problems Maternal Grandmother No Known Problems Maternal Grandfather No Known Problems Paternal Grandmother No Known Problems Paternal Grandfather Social History Tobacco Use Smoking status: Never Smokeless tobacco: Never Vaping Use Vaping status: Never Used Substance Use Topics Alcohol use: Never Drug use: Never REVIEW OF SYSTEMS Constitutional: (+) chills, (+) fatigue Genitourinary: (+) dysuria, (-) hematuria EXAM: BP 134/76 Pulse 74 Temp 36.8 ?C (98.2 ?F) Wt 91.2 kg (201 lb) SpO2 98% BMI 33.45 kg/m? PHYSICAL EXAM: GENERAL: NAD, alert and oriented NECK: Supple, no carotid bruits. LUNGS: Clear to auscultation bilaterally, no wheezes/rhonchi/rales. HEART: Regular rate and rhythm, no murmurs. No ectopy. EXTREMITIES: Normal, No deformities, No skin discoloration, No edema. NEURO: Awake, alert and oriented x3, cranial nerves II-XII grossly intact, unsteady gait- uses walker, no involuntary motions LABS: urine DIP ASSESSMENT/PLAN: 1. Dysuria - ICD9: 788.1, ICD10: R30.0 acute - Patient education for prevention given - UA DIP, URINE (POC) - BACTERIAL CULTURE, URINE - Hx of e coli- amoxicillin every 8 hours for 10 days - Discussed pyridium but pt. Declined - Prescribed 1 tablet of fluconazole to take if needed for vaginal yeast infection - Amoxicillin 500 mg 3 x day for 10 days (based on last culture). Pt. Aware that antibiotic may have to be changed once the culture returns, Saturday. Discussed treatment plan and patient voices understanding. Patient's questions answered appropriately. Medications and potential side effects were discussed and patient voices understanding. Return to the office as scheduled or as needed for worsening/no improvement. Lindsay Wyatt APRN.[facility] 12-03-2024 History of Present illness Narrative This is a 79 year old female who presents today with: Patient presents with: UTI: urinary frequency, dysuria, chills HISTORY OF PRESENT ILLNESS: Tarik Baker is a 79 year old female. Patient presents with: UTI: urinary frequency, dysuria, chills Alejandra Baker is a 79-year-old female with a history of recurrent UTIs, presenting with dysuria. Dysuria: - Intermittent dysuria x2 weeks. - Denies hematuria. - Reports occasional chills; denies fever. - Denies weakness, but reports feeling worn out. - History of recurrent UTIs, with episodes occurring annually. - Currently taking Azo and increasing water intake. PAST MEDICAL HISTORY: PAST MEDICAL HISTORY Diagnosis Date Diabetes (HCC) Essential hypertension History of cardiovascular stress test 12/2020 ef 60, no ischemia PAST SURGICAL HISTORY Procedure Laterality Date TUBAL LIGATION HX ALLERGIES Prednisone MEDICATIONS Current Outpatient Medications Medication Sig insulin NPH injection 25 units in the am and 25 units in the pm. potassium chloride ER (KLOR-CON) 20 mEq tablet Take 20 mEq by mouth once daily. Started by Cardio due to being on Lasix apixaban (ELIQUIS) 5 mg tab(s) Take 1 tablet by mouth two times a day. enalapril (VASOTEC) 20 mg tablet Take 1 tablet by mouth once daily. ergocalciferol 50,000 unit capsule (VITAMIN D2, DRISDOL) Take 1 capsule by mouth one time a week. Fenofibrate (LOFIBRA) 160 mg tablet Take 1 tablet by mouth once daily. furosemide (LASIX) 20 mg tablet Take 1 tablet by mouth once daily. levothyroxine (SYNTHROID) 175 mcg tablet Take 1 tablet by mouth once daily. Take on empty stomach. For Thyroid. metoprolol tartrate, short acting, (LOPRESSOR) 25 mg tablet Take 1 tablet by mouth two times a day. sertraline (ZOLOFT) 100 mg tablet Take 1 tablet by mouth once daily. red beet root-sour raines ext 250-0.5 mg chew Take 1 tablet by mouth once daily. vit A,C,Y-Jsuv-Xybtpm (PRESERVISION AREDS) 2,148 mcg-113 mg-45 mg-17.4mg tab Take 1 tablet by mouth daily with breakfast. multivitamin with minerals (MULTIPLE VITAMINS 55 PLUS ORAL) Take 1 capsule by mouth once daily. Ascorbic Acid (VITAMIN C) 100 mg tablet ZINC ORAL Take by mouth. apixaban (ELIQUIS) 5 mg tab(s) Take 1 tablet by mouth two times a day. No current facility-administered medications for this visit. FAMILY HISTORY Problem Relation Age of Onset No Known Problems Mother No Known Problems Father No Known Problems Maternal Grandmother No Known Problems Maternal Grandfather No Known Problems Paternal Grandmother No Known Problems Paternal Grandfather Social History Tobacco Use Smoking status: Never Smokeless tobacco: Never Vaping Use Vaping status: Never Used Substance Use Topics Alcohol use: Never Drug use: Never REVIEW OF SYSTEMS Constitutional: (+) chills, (+) fatigue Genitourinary: (+) dysuria, (-) hematuria EXAM: BP 134/76 Pulse 74 Temp 36.8 C (98.2 F) Wt 91.2 kg (201 lb) SpO2 98% BMI 33.45 kg/m PHYSICAL EXAM: GENERAL: NAD, alert and oriented NECK: Supple, no carotid bruits. LUNGS: Clear to auscultation bilaterally, no wheezes/rhonchi/rales. HEART: Regular rate and rhythm, no murmurs. No ectopy. EXTREMITIES: Normal, No deformities, No skin discoloration, No edema. NEURO: Awake, alert and oriented x3, cranial nerves II-XII grossly intact, unsteady gait- uses walker, no involuntary motions LABS: urine DIP ASSESSMENT/PLAN: 1. Dysuria - ICD9: 788.1, ICD10: R30.0 acute - Patient education for prevention given - UA DIP, URINE (POC) - BACTERIAL CULTURE, URINE - Hx of e coli- amoxicillin every 8 hours for 10 days - Discussed pyridium but pt. Declined - Prescribed 1 tablet of fluconazole to take if needed for vaginal yeast infection - Amoxicillin 500 mg 3 x day for 10 days (based on last culture). Pt. Aware that antibiotic may have to be changed once the culture returns, Saturday. Discussed treatment plan and patient voices understanding. Patient's questions answered appropriately. Medications and potential side effects were discussed and patient voices understanding. Return to the office as scheduled or as needed for worsening/no improvement. 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 Pt reports urinary sx's that began about 2 weeks ago: -urinary frequency -burning with urination - 1 day of chills, nothing in last 24 hours -denies fever -does not see any visible blood in urine -no abd pain -no back/flank pain -no N/V -no severe weakness Pt reports she does get recurrent UTIs. Appt made with provider today for evaluation. 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 Pt reports urinary sx's that began about 2 weeks ago: -urinary frequency -burning with urination - 1 day of chills, nothing in last 24 hours -denies fever -does not see any visible blood in urine -no abd pain -no back/flank pain -no N/V -no severe weakness Pt reports she does get recurrent UTIs. Appt made with provider today for evaluation. Guillermina Ordonez RN documented in this encounter [facility] 11-13-2024 Note HNO ID: [id number] Author: ?, ?, ? Service: ? Author Type: ? Type: Progress Notes Filed: 11/13/2024 12:41 Note Text: POPULATION HEALTH NAVIGATION OUTREACH Action/FYI Patient outreach for HM due; AWFanny, SANDRINE, MANISHA. Voicemail is full. Sent letter to close gaps. Reason for Outreach Care Gap/HCC or Scheduling Wellness Visits Care Gaps due: Medicare Annual Wellness Visit Diabetic Eye Exam KED Patient Contacted: Unable or unnecessary to reach patient: Unable to leave message Letter mailed Updated appointment notes Navigation Signature: Ayleen Chawla November 13, 2024 12:35 PM [facility] 11-13-2024 History of Present illness Narrative POPULATION HEALTH NAVIGATION OUTREACH Action/FYI Patient outreach for HM due; SANDRINE QIU, MANISHA. Voicemail is full. Sent letter to close gaps. Reason for Outreach Care Gap/HCC or Scheduling Wellness Visits Care Gaps due: Medicare Annual Wellness Visit Diabetic Eye Exam KED Patient Contacted: Unable or unnecessary to reach patient: Unable to leave message Letter mailed Updated appointment notes Navigation Signature: Ayleen Chawla November 13, 2024 12:35 PM documented in this encounter [facility] 11-13-2024 Note Patient Outreach (RAE TNDONNIE) TARIK BAKER ([id number]) 1945 F [place] Date Time Provider Department 11/13/24 ZAC LINTON During your visit today, we recorded the following information about you: Ayleen Bennett 11/13/2024 12:41 PM Signed POPULATION HEALTH NAVIGATION OUTREACH Action/FYI Patient outreach for HM due; AWV, SANDRINE, MANISHA. Voicemail is full. Sent letter to close gaps. Reason for Outreach Care Gap/HCC or Scheduling Wellness Visits Care Gaps due: Medicare Annual Wellness Visit Diabetic Eye Exam KED Patient Contacted: Unable or unnecessary to reach patient: Unable to leave message Letter mailed Updated appointment notes Navigation Signature: Ayleen Chawla November 13, 2024 12:35 PM Allergies As of Date: 11/13/2024 Noted Allergy Reaction PREDNISONE 09/06/2015 14 - Other: See Comments Comments: Sugar went over 900 Date Reviewed: 09/17/2024 Reviewed by: Cinthya Syed MA - Fully Assessed Reason for Visit: Population Health Navigation Outreach [3910] Cmt: Aline Palacios Prescriptions as of 11/13/2024 - insulin NPH injection 25 units in the am and 25 units in the pm. - potassium chloride ER (KLOR-CON) 20 mEq tablet Take 20 mEq by mouth once daily. Started by Cardio due to being on Lasix - apixaban (ELIQUIS) 5 mg tab(s) Take 1 tablet by mouth two times a day. - apixaban (ELIQUIS) 5 mg tab(s) Take 1 tablet by mouth two times a day. - enalapril (VASOTEC) 20 mg tablet Take 1 tablet by mouth once daily. - ergocalciferol 50,000 unit capsule (VITAMIN D2, DRISDOL) Take 1 capsule by mouth one time a week. - Fenofibrate (LOFIBRA) 160 mg tablet Take 1 tablet by mouth once daily. - furosemide (LASIX) 20 mg tablet Take 1 tablet by mouth once daily. - levothyroxine (SYNTHROID) 175 mcg tablet Take 1 tablet by mouth once daily. Take on empty stomach. For Thyroid. - metoprolol tartrate, short acting, (LOPRESSOR) 25 mg tablet Take 1 tablet by mouth two times a day. - sertraline (ZOLOFT) 100 mg tablet Take 1 tablet by mouth once daily. - red beet root-sour raines ext 250-0.5 mg chew Take 1 tablet by mouth once daily. - vit A,C,M-Uicz-Qfryca (PRESERVISION AREDS) 2,148 mcg-113 mg-45 mg-17.4mg tab Take 1 tablet by mouth daily with breakfast. - multivitamin with minerals (MULTIPLE VITAMINS 55 PLUS ORAL) Take 1 capsule by mouth once daily. - Ascorbic Acid (VITAMIN C) 100 mg tablet - ZINC ORAL Take by mouth. Problem List As Of Date 11/13/2024 Noted Resolved History of temporal arteritis [Z87.39] 09/06/2015 Type 2 diabetes mellitus with hyperglycemia, wi*09/06/2015 Diabetes (HCC) [E11.9] Hypothyroidism, acquired [E03.9] 06/21/2020 Hypertriglyceridemia [E78.1] 06/21/2020 Obesity, Class I, BMI 30-34.9 [E66.811] 06/21/2020 Vitamin D deficiency [E55.9] 06/21/2020 Primary hypertension [I10] 12/12/2020 History of non-ST elevation myocardial infarcti*04/10/2022 Chronic kidney disease, stage 3a (HCC) [N18.31] 11/08/2022 06/12/2024 Bilateral pulmonary embolism (HCC) [I26.99] 06/12/2024 Encounter Status:Closed by AYLEEN BENNETT on 11/13/24 [facility] 09-24-2024 Telephone encounter Note Called and left message on patients voicemail to return call to the office and ask to speak with a triage nurse. Jayla Jaeger MA [facility] 09-24-2024 Miscellaneous Notes Called and left message on patients voicemail to return call to the office and ask to speak with a FM triage nurse. Jayla Jaeger MA Called and LM on 's spouse VM to return call to office and speak with a FM Triage Nurse regarding results. Please relay information below to pt/pt spouse when return call received. Jayla Jaeger MA Please notify patient that her lab results last week were stable, so stay on the same medications and follow up in 3 months as planned Zac Linton MD documented in this encounter [facility] 09-22-2024 Telephone encounter Note Called and LM on 's spouse VM to return call to office and speak with a FM Triage Nurse regarding results. Please relay information below to pt/pt spouse when return call received. Jayla Jaeger MA [facility] 09-22-2024 Telephone encounter Note Please notify patient that her lab results last week were stable, so stay on the same medications and follow up in 3 months as planned Zac Linton MD [facility] 09-17-2024 History of Present illness Narrative Chief Complaint Patient presents with: F/U 3 Month HPI Tarik Baker is a 78 year old female who presents here today for 3 month follow up. Here with . No bowel or GI issues. Chronic issues with UTIs. Has OAB. Lipids: Taking Fenofibrate 160 mg daily. DM: Checking BS at home with readings around 102. Has mild neuropathy in feet. Denies any hypoglycemic episodes. Taking Humulin/Novolin 25 units AM and 25 units PM which was changed last visit. Does not following with an eye doctor for a long time. Palpitations: stable on Vasotec 20 mg daily, Metoprolol 25 mg BID and ASA 325 mg daily. Follows with Dr. Hinton at [facility]. Does check BP occ with readings WNL. Edema: Oscar legs, stable with Lasix 20 mg daily. PE: Taking Eliquis 5 mg BID. Thyroid: Taking Synthroid 175 mcg daily. Moods: Stable with zoloft 100 mg daily. Taking Vitamin D3 50,000 international unit(s) weekly. Past medical history, appointments, medications, allergies reviewed. Previous Medical History PAST MEDICAL HISTORY Diagnosis Date Diabetes (HCC) Essential hypertension History of cardiovascular stress test 12/2020 ef 60, no ischemia Previous Surgical History PAST SURGICAL HISTORY Procedure Laterality Date TUBAL LIGATION HX Family History FAMILY HISTORY Problem Relation Age of Onset No Known Problems Mother No Known Problems Father No Known Problems Maternal Grandmother No Known Problems Maternal Grandfather No Known Problems Paternal Grandmother No Known Problems Paternal Grandfather Patient Allergies ALLERGIES Allergen Reactions Prednisone Other: See Comments Sugar went over 900 Current Medications Current Outpatient Medications on File Prior to Visit Medication Sig potassium chloride ER (KLOR-CON) 20 mEq tablet Take 20 mEq by mouth once daily. Started by Cardio due to being on Lasix insulin NPH injection 22 units in the am and 26 units in the pm. apixaban (ELIQUIS) 5 mg tab(s) Take 1 tablet by mouth two times a day. apixaban (ELIQUIS) 5 mg tab(s) Take 1 tablet by mouth two times a day. enalapril (VASOTEC) 20 mg tablet Take 1 tablet by mouth once daily. ergocalciferol 50,000 unit capsule (VITAMIN D2, DRISDOL) Take 1 capsule by mouth one time a week. Fenofibrate (LOFIBRA) 160 mg tablet Take 1 tablet by mouth once daily. furosemide (LASIX) 20 mg tablet Take 1 tablet by mouth once daily. levothyroxine (SYNTHROID) 175 mcg tablet Take 1 tablet by mouth once daily. Take on empty stomach. For Thyroid. metoprolol tartrate, short acting, (LOPRESSOR) 25 mg tablet Take 1 tablet by mouth two times a day. sertraline (ZOLOFT) 100 mg tablet Take 1 tablet by mouth once daily. red beet root-sour raines ext 250-0.5 mg chew Take 1 tablet by mouth once daily. vit A,C,P-Riet-Jkiise (PRESERVISION AREDS) 2,148 mcg-113 mg-45 mg-17.4mg tab Take 1 tablet by mouth daily with breakfast. multivitamin with minerals (MULTIPLE VITAMINS 55 PLUS ORAL) Take 1 capsule by mouth once daily. Ascorbic Acid (VITAMIN C) 100 mg tablet ZINC ORAL Take by mouth. No current facility-administered medications on file prior to visit. Social History Social History Tobacco Use Smoking status: Never Smokeless tobacco: Never Vaping Use Vaping status: Never Used Substance Use Topics Alcohol use: Never Drug use: Never EXAM: BP 120/70 Pulse 74 Resp 16 Wt 91.9 kg (202 lb 9.6 oz) SpO2 98% BMI 33.71 kg/m General Appearance: Well appearing, alert, in no acute distress, well-hydrated, well nourished. and Walker. Lungs: Lungs clear to auscultation. No wheezing, rhonchi, rales.. Heart: RRR without murmur, gallop, or rubs. No ectopy. Health Maintenance List Bone Density Screening Never done Hemoglobin/Hematocrit due on 12/06/2021 Dilated Retinal Exam due on 04/10/2023 Urine Albumin:Creatinine Ratio due on 04/18/2023 Advance Directive Discussion due on 05/06/2024 HbA1C due on 09/13/2024 DTaP,Tdap,Td Vaccine(2 - Td or Tdap) due on 10/14/2024 RSV Vaccine(1 - 1-dose 75+ series) due on 12/01/2024 Shingrix Vaccine(1 of 2) due on 12/01/2024 Pneumococcal Vaccine: 50+(2 of 2 - PCV) due on 12/01/2024 Covid-19 Vaccine( - 2023- season) due on 06/12/2025 Diabetic Foot Exam due on 12/01/2024 Depression Screening due on 12/01/2024 Anxiety Screening due on 12/01/2024 Influenza Vaccine(Season Ended) due on 01/04/2025 Annual PCP Team Chronic Disease Visit due on 06/12/2025 BP Controlled (<130/80) due on 06/12/2025 LDL Cholesterol due on 06/16/2025 Serum Creatinine due on 06/16/2025 Hepatitis C Screening Completed Data reviewed None ASSESSMENT/PLAN: 1. Type 2 diabetes mellitus with hyperglycemia, with long-term current use of insulin (HCC) - ICD9: 250.00, 790.29, V58.67, ICD10: E11.65, Z79.4 (primary diagnosis) - Control undetermined, due for labs - Continue current medications - Counseled on healthy diet and regular exercise - Discussed need for and benefit of weight loss. BMI 33.71 kg/(m^2) 2. Hypertriglyceridemia - ICD9: 272.1, ICD10: E78.1 - Control undetermined, due for labs - Continue current medications - Counseled on healthy diet and regular exercise - Discussed need for and benefit of weight loss. BMI 33.71 kg/(m^2) 3. Hypothyroidism, acquired - ICD9: 244.9, ICD10: E03.9 - Instructed patient on importance of taking on an empty stomach either first thing in the morning or at bedtime. Continue current medications. 4. Vitamin D deficiency - ICD9: 268.9, ICD10: E55.9 Continue current medications. 5. Primary hypertension - ICD9: 401.9, ICD10: I10 - Controlled - Continue current medications - Recommend home blood pressure monitoring, to bring results to next visit - Encouraged sodium restriction, DASH or Mediterranean diet - Recommend regular aerobic exercise - Discussed need for and benefit of weight loss. BMI 33.71 kg/(m^2) 6. Bilateral pulmonary embolism (HCC) - ICD9: 415.19, ICD10: I26.99 Continue current medications. 7. History of non-ST elevation myocardial infarction (NSTEMI) - ICD9: 412, ICD10: I25.2 Continue current medications. Continue with Cardio 8. Stage 3a chronic kidney disease (HCC) - ICD9: 585.3, ICD10: N18.31 Continue current medications. 9. Type 2 diabetes mellitus with diabetic polyneuropathy, with long-term current use of insulin (HCC) - ICD9: 250.60, 357.2, V58.67, ICD10: E11.42, Z79.4 - Control undetermined, due for labs - Continue current medications - Counseled on healthy diet and regular exercise - Discussed need for and benefit of weight loss. BMI 33.71 kg/(m^2) - INSULIN NPH ISOPHANE U-100 HUMAN 100 UNIT/ML SUBCUTANEOUS SUSPENSION Follow up in 3 months with fasting labs prior. I agree with the Chief Complaint, ROS, and Past Histories independently gathered by the clinical rn support services and the remaining scribed note accurately describes my personal service to the patient. Medical Decision Making: Problems: Moderate: 2+ stable chronic illnesses Data: Unique test result(s) reviewed: 2 Risk: Moderate: Drug management Medical Decision Making Level: 4 - Moderate Zac Linton MD The documentation for this note was completed by Cinthya Syed MA acting as scribe for Zac Linton MD. September 17, 2024 4:16 PM. Cinthya Syed MA documented in this encounter [facility] 09-17-2024 Note HNO ID: [id number] Author: ZAC LINTON MD Service: ? Author Type: Physician Type: Progress Notes Filed: 09/17/2024 17:41 Note Text: Chief Complaint Patient presents with: F/U 3 Month HPI Tarik Baker is a 78 year old female who presents here today for 3 month follow up. Here with . No bowel or GI issues. Chronic issues with UTIs. Has OAB. Lipids: Taking Fenofibrate 160 mg daily. DM: Checking BS at home with readings around 102. Has mild neuropathy in feet. Denies any hypoglycemic episodes. Taking Humulin/Novolin 25 units AM and 25 units PM which was changed last visit. Does not following with an eye doctor for a long time. Palpitations: stable on Vasotec 20 mg daily, Metoprolol 25 mg BID and ASA 325 mg daily. Follows with Dr. Hinton at [facility]. Does check BP occ with readings WNL. Edema: Oscar legs, stable with Lasix 20 mg daily. PE: Taking Eliquis 5 mg BID. Thyroid: Taking Synthroid 175 mcg daily. Moods: Stable with zoloft 100 mg daily. Taking Vitamin D3 50,000 international unit(s) weekly. Past medical history, appointments, medications, allergies reviewed. Previous Medical History PAST MEDICAL HISTORY Diagnosis Date Diabetes (HCC) Essential hypertension History of cardiovascular stress test 12/2020 ef 60, no ischemia Previous Surgical History PAST SURGICAL HISTORY Procedure Laterality Date TUBAL LIGATION HX Family History FAMILY HISTORY Problem Relation Age of Onset No Known Problems Mother No Known Problems Father No Known Problems Maternal Grandmother No Known Problems Maternal Grandfather No Known Problems Paternal Grandmother No Known Problems Paternal Grandfather Patient Allergies ALLERGIES Allergen Reactions Prednisone Other: See Comments Sugar went over 900 Current Medications Current Outpatient Medications on File Prior to Visit Medication Sig potassium chloride ER (KLOR-CON) 20 mEq tablet Take 20 mEq by mouth once daily. Started by Cardio due to being on Lasix insulin NPH injection 22 units in the am and 26 units in the pm. apixaban (ELIQUIS) 5 mg tab(s) Take 1 tablet by mouth two times a day. apixaban (ELIQUIS) 5 mg tab(s) Take 1 tablet by mouth two times a day. enalapril (VASOTEC) 20 mg tablet Take 1 tablet by mouth once daily. ergocalciferol 50,000 unit capsule (VITAMIN D2, DRISDOL) Take 1 capsule by mouth one time a week. Fenofibrate (LOFIBRA) 160 mg tablet Take 1 tablet by mouth once daily. furosemide (LASIX) 20 mg tablet Take 1 tablet by mouth once daily. levothyroxine (SYNTHROID) 175 mcg tablet Take 1 tablet by mouth once daily. Take on empty stomach. For Thyroid. metoprolol tartrate, short acting, (LOPRESSOR) 25 mg tablet Take 1 tablet by mouth two times a day. sertraline (ZOLOFT) 100 mg tablet Take 1 tablet by mouth once daily. red beet root-sour raines ext 250-0.5 mg chew Take 1 tablet by mouth once daily. vit A,C,A-Wybb-Qpstzf (PRESERVISION AREDS) 2,148 mcg-113 mg-45 mg-17.4mg tab Take 1 tablet by mouth daily with breakfast. multivitamin with minerals (MULTIPLE VITAMINS 55 PLUS ORAL) Take 1 capsule by mouth once daily. Ascorbic Acid (VITAMIN C) 100 mg tablet ZINC ORAL Take by mouth. No current facility-administered medications on file prior to visit. Social History Social History Tobacco Use Smoking status: Never Smokeless tobacco: Never Vaping Use Vaping status: Never Used Substance Use Topics Alcohol use: Never Drug use: Never EXAM: BP 120/70 Pulse 74 Resp 16 Wt 91.9 kg (202 lb 9.6 oz) SpO2 98% BMI 33.71 kg/m? General Appearance: Well appearing, alert, in no acute distress, well-hydrated, well nourished. and Walker. Lungs: Lungs clear to auscultation. No wheezing, rhonchi, rales.. Heart: RRR without murmur, gallop, or rubs. No ectopy. Health Maintenance List Bone Density Screening Never done Hemoglobin/Hematocrit due on 12/06/2021 Dilated Retinal Exam due on 04/10/2023 Urine Albumin:Creatinine Ratio due on 04/18/2023 Advance Directive Discussion due on 05/06/2024 HbA1C due on 09/13/2024 DTaP,Tdap,Td Vaccine(2 - Td or Tdap) due on 10/14/2024 RSV Vaccine(1 - 1-dose 75+ series) due on 12/01/2024 Shingrix Vaccine(1 of 2) due on 12/01/2024 Pneumococcal Vaccine: 50+(2 of 2 - PCV) due on 12/01/2024 Covid-19 Vaccine( - season) due on 06/12/2025 Diabetic Foot Exam due on 12/01/2024 Depression Screening due on 12/01/2024 Anxiety Screening due on 12/01/2024 Influenza Vaccine(Season Ended) due on 01/04/2025 Annual PCP Team Chronic Disease Visit due on 06/12/2025 BP Controlled (<130/80) due on 06/12/2025 LDL Cholesterol due on 06/16/2025 Serum Creatinine due on 06/16/2025 Hepatitis C Screening Completed Data reviewed None ASSESSMENT/PLAN: 1. Type 2 diabetes mellitus with hyperglycemia, with long-term current use of insulin (HCC) - ICD9: 250.00, 790.29, V58.67, ICD10: E11.65, Z79.4 (primary diagnosis) - (more content not included)... [facility] 09-15-2024 Progress note [facility] 09-15-2024 Progress note Note Date/Time September 15, 2024 2:34pm [facility] [address] [place], [place] [address] OFFICE VISIT Date of Service: 09/15/24 MR#: [id number] Acct: [id number] Name: TARIK BAKER Rep #: [id number] : 1945 Provider: Dr. Alan Hsu MD Age/Sex: 78/F Location: [facility] [place] Status: Signed HPI HPI History of Present Illness Details: This lady with history of paroxysmal atrial fibrillation, unprovoked DVT and pulmonary embolism, hypertension and diabetes mellitus is here for follow-up visit. Denies any complaints today. No chest pains. No shortness of breath. Since increasing her furosemide to 40 mg daily, her ankle edema has resolved. 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 Instructions: Hold it while patient is on Eliquis ergocalciferol (vitamin D2) 1,250 1,250 mcg PO MO 01/0509/15/24 History mcg (50,000 unit) capsule levothyroxine 175 mcg tablet 175 mcg PO QDAY 01/24/24 09/15/24 History (Synthroid) multivitamin 1 tab PO QAM 01/24/24 History sertraline 100 mg tablet 100 mg PO QDAY 01/24/2409/03 History metoprolol tartrate 25 mg tablet 25 mg PO BID 02/04/24 09/15/24 History zinc gluconate 100 mg tablet 100 mg PO DAILY 02/04/24 09/15/24 History enalapril maleate 20 mg tablet 40 mg PO QDAY 03/23/24 09/15/24 History furosemide 40 mg tablet (Lasix) 40 mg PO QAM #90 tabs 03/23/24 09/15/24 Rx potassium chloride 20 mEq 20 meq PO QDAY #90 tabs 03/0609/15/24 Rx tablet,extended release apixaban 5 mg tablet (Eliquis) 5 mg PO BID #60 tabs 09/15/24 Rx insulin NPH isoph U-100 human 100 25 unit subcut BID 0 09/15/24 09/15/24 History unit/mL subcutaneous suspension (Novolin N NPH U-100 Insulin isophane) Ejection fraction %: 60 Have you fallen in the past year?: No PFSH Medical History Atrial fibrillation Bilateral pulmonary embolism Depression Diabetes Hypercholesteremia Hypothyroid Hypoxemia Myocardial infarct Non-smoker Pulmonary embolism TIA (transient ischemic attack) Surgical History H/O tubal ligation Social History Smoking Status: Never smoker Electronic Cigarette Use: not used alcohol intake: never substance use type: does not use ROS Const Const: Negative for fatigue, weakness, headache(s) or weight gain ENT ENT: Negative for headache(s), dizziness, Nosebleed/epistaxis or balance problems Cardio Chest Pain: No Palpitations: No Edema: None Muscle aches with walking: None Resp Respiratory: Negative for SOB with activity, SOB at rest or SOB orthopneaundefinedSOB lying down GI GI: Negative nausea, vomiting or heartburn Musc Musc: Negative for muscle aches/ myalgia, muscle weakness, joint pain or balanceproblems Neuro Neuro: Negative for dizziness, lightheadedness, near syncope, syncope, headache(s) or weakness Endo Endo: Negative for fatigue Cardiology Exam Const Appearance: comfortable and no acute distress Nutritional Appearance: well nourished Neck Neck: no JVD Carotids: Negative bruit Chest Auscultation: Bilateral: Clear to Auscultation Cardio Rate: regular rate Rhythm: regular rhythm Heart sounds: S1 normal and S2 normal Neuro General: patient alert, patient awake and patient oriented x3 Extremities Lower Extremity Edema: None: Bilateral Supplemental Info Supplemental Information Echocardiogram 02/05/2024: Interpretation Summary: The estimated ejection fraction is 60 %. Diastolic function is indeterminate. Pulmonary artery systolic pressure is 70 mmHg. Echocardiogram 01/17/2024: Impression: -Technically difficult exam due to suboptimal positioning and body habitus. -Exam indication: Frequent PVCs -The left ventricle is normal in size. Left ventricular systolic function is normal. EF=58 +/- 5% (2D 4-ch). Normal left ventricular diastolic function. -The right ventricle is normal in size. Right ventricular systolic function is normal. -There are no significant valvular abnormalities. -Exam was compared with the prior echocardiographic exam performed on 12/07/2020. There is no significant change. Echocardiogram 12/07/2020: Findings: 1. The patient is noted to be in atrial fibrillation with occasional PVCs. 2. Left ventricle wall thickness is normal. Normal wall motion is seen. Ejectionfraction 65%. 3. Left atrium is normal size. Not distended. 4. Right atrium and right ventricle normal. 5. Pulmonic valve is not well seen. 6. Tricuspid valve is not well seen except the apical 4-chamber view. No signs of regurgitation. 7. PA pressure could not be estimated secondary to lack of tricuspid regurgitation. 8. No extracardiac masses. 9. No intracardiac masses. 10. Ascending aorta normal. 11. Reversal of E to A ratio consistent with diastolic dysfunction. Conclusion: Echocardiogram demonstrates normal wall thickness. Normal wall motion. Ejection fraction 65%. Diastolic dysfunction is seen. Valvular function appears to be normal. Radiopharmaceutical Stress Test 12/07/2020: Findings: The left ventricular chamber size is normal and there is no transient ischemic dilation. There are no fixed or reversible perfusion defects. Myocardial contractility and wall motion are normal. The left ventricular ejection fractionis calculated at 60%. CTA Chest w/wo Contrast 02/04/2024: Findings: CENTRAL AIRWAYS: Patent. LUNGS: Chronic mild scarring in the right lower lobe medially. PLEURA: No pneumothorax or significant pleural effusion. HEART/PERICARDIUM: Heart within normal limits in size with mild right chamber enlargement. No pericardial effusion. PULMONARY ARTERIES: Large filling defects in the distal right and left main pulmonary arteries with extension into all lobar, multiple segmental, and subsegmental branches. AORTA/VESSELS: No thoracic aortic aneurysm or dissection flap. MEDIASTINUM/SELENE: No pathologically enlarged lymph nodes. OSSEOUS STRUCTURES: Degenerative change. Chronic mild T11 compression fracture. UPPER ABDOMEN: Unremarkable. CTA w/Contrast 12/18/2020: Findings: Heart size and pericardium are unremarkable. The aorta is normal in caliber. No aneurysm or dissection. There is no mediastinal mass or adenopathy. There is no hilar or axillary adenopathy. There is no evidence of pulmonary embolus. There is no pleural effusion. Mild airspace disease in the right lower lobe. Lungs are otherwise clear. Visualized abdomen is unremarkable. There is no osseous abnormality. Venous Duplex US Bilateral 02/04/2024: Interpretation Summary: Acute deep vein thrombosis is noted in the right tibio-peroneal trunk. Deep veins of the left lower extremity are patent and compressible segmentally. There is no evidence of left lower extremity deep vein thrombosis. The bilateralgreat saphenous veins appear patent and compressible segmentally. CXR 12/06/2020: Findings: The heart size is within normal limits. Atherosclerosis present of the thoracic aorta. And there are streaky opacities of the right infrahilar region. No dense focal consolidations are evident. There is mild coarsening of the interstitium without florid vascular congestion. No evident pleural effusion or pneumothorax is seen. Left pulmonary hilar prominence may reflect a vascular etiology, not definitively characterized. Assessment and Plan Assessment and Plan (1) Bilateral edema of lower extremity: Status: Resolved Plan: Resolved. History of DVTs. (2) History of DVT (deep vein thrombosis): Status: Chronic Plan: On apixaban. (3) History of pulmonary embolism: Status: Chronic Plan: On apixaban. (4) Paroxysmal atrial fibrillation: Status: Chronic Plan: Maintaining sinus rhythm. Continue to monitor. Metoprolol. Apixaban. (5) Hypertension: Status: Chronic Plan: Continue enalapril. Increase metoprolol to 50 mg twice daily. (6) Dyslipidemia: Status: Chronic Plan: As per PCP. (7) Diabetes: Status: Chronic Plan: As per PCP. (8) Pulmonary hypertension: Status: Chronic Plan: History of PE. Repeat echo. Plan Details Follow Up: 6 Months Coding Level of Care Code Off vis,est,level 4 Diagnoses Bilateral edema of lower extremity R60.0 History of DVT (deep vein thrombosis) Z86.718 History of pulmonary embolism Z86.711 Paroxysmal atrial fibrillation I48.0 Hypertension I10 Dyslipidemia E78.5 Diabetes E11.9 Pulmonary hypertension I27.20 Coding Level of Care Code Off vis,est,level 4 Diagnoses Bilateral edema of lower extremity R60.0 History of DVT (deep vein thrombosis) Z86.718 History of pulmonary embolism Z86.711 Paroxysmal atrial fibrillation I48.0 Hypertension I10 Dyslipidemia E78.5 Diabetes E11.9 Pulmonary hypertension I27.20 Clinical Quality Measures Falls Risk Screening/Assistive Devices Have you fallen in the past year?: No Cardiac Ejection fraction %: 60 09/15/24 1434 <Electronically signed by Josue Hsu MD> Date _ Josue Hsu MD Cosigner Signature: Date (if applicable) CC: Dr. Zac Linton MD ~ [facility] [employer] Work Phone: [phone]) 747-957603-25-2025 NoteHNO ID: [id number] Author: PATRICIO GONGORA MA Service: ? Author Type: [facility] Type: Progress Notes Filed: 07/28/2024 09:38 Note Text: POPULATION HEALTH NAVIGATION OUTREACH Action/FYI Care gaps due: AWV DIABETIC RETINAL EXAM KED Pharmacy visit Spoke to pt, said she's going to have to wait a month to schedule at least, Reason for Outreach Care Gap/HCC or Scheduling Wellness Visits Care Gaps due: Medicare Annual Wellness Visit Diabetic Eye Exam KED Patient Contacted: Spoke to patient/parent/or legal guardian Patient identified by name and : No Navigation Signature: Patricio Gongora MA July 28, 2024 9:35 [facility]03-25-2025 History of Present illness Narrative* Patricio Gongora MA - 07/28/2024 9:35 AM EDT POPULATION HEALTH NAVIGATION OUTREACH Action/FYI Care gaps due: AWV DIABETIC RETINAL EXAM KED Pharmacy visit Spoke to pt, said she's going to have to wait a month to schedule at least, Reason for Outreach Care Gap/HCC or Scheduling Wellness Visits Care Gaps due: Medicare Annual Wellness Visit Diabetic Eye Exam KED Patient Contacted: Spoke to patient/parent/or legal guardian Patient identified by name and : No Navigation Signature: Patricio Gongora MA July 28, 2024 9:35 AM documented in this encounterOhio [facility] NotePatient Outreach (NETNAV) TARIK BAKER ([id number]) 1945 F Date Time Provider Department 07/28/24 PATRICIO GONGORA During your visit today, we recorded the following information about you: Patricio Gongora MA 07/28/2024 9:38 AM Signed POPULATION HEALTH NAVIGATION OUTREACH Action/FYI Care gaps due: AWV DIABETIC RETINAL EXAM KED Pharmacy visit Spoke to pt, said she's going to have to wait a month to schedule at least, Reason for Outreach Care Gap/HCC or Scheduling Wellness Visits Care Gaps due: Medicare Annual Wellness Visit Diabetic Eye Exam KED Patient Contacted: Spoke to patient/parent/or legal guardian Patient identified by name and : No Navigation Signature: Patricio Gongora MA July 28, 2024 9:35 AM Allergies As of Date: 07/28/2024 Noted Allergy Reaction PREDNISONE 09/06/2015 14 - Other: See Comments Comments: Sugar went over 900 Date Reviewed: 06/12/2024 Reviewed by: Cinthya Syed MA - Fully Assessed Reason for Visit: Population Health Navigation Outreach [3910] Cmt: Aline palacios Prescriptions as of 07/28/2024 - potassium chloride ER (KLOR-CON) 20 mEq tablet Take 20 mEq by mouth once daily. Started by Cardio due to being on Lasix - insulin NPH injection 22 units in the am and 26 units in the pm. - apixaban (ELIQUIS) 5 mg tab(s) Take 1 tablet by mouth two times a day. - apixaban (ELIQUIS) 5 mg tab(s) Take 1 tablet by mouth two times a day. - enalapril (VASOTEC) 20 mg tablet Take 1 tablet by mouth once daily. - ergocalciferol 50,000 unit capsule (VITAMIN D2, DRISDOL) Take 1 capsule by mouth one time a week. - Fenofibrate (LOFIBRA) 160 mg tablet Take 1 tablet by mouth once daily. - furosemide (LASIX) 20 mg tablet Take 1 tablet by mouth once daily. - levothyroxine (SYNTHROID) 175 mcg tablet Take 1 tablet by mouth once daily. Take on empty stomach. For Thyroid. - metoprolol tartrate, short acting, (LOPRESSOR) 25 mg tablet Take 1 tablet by mouth two times a day. - sertraline (ZOLOFT) 100 mg tablet Take 1 tablet by mouth once daily. - red beet root-sour raines ext 250-0.5 mg chew Take 1 tablet by mouth once daily. - vit A,C,N-Tivc-Bnbpgy (PRESERVISION AREDS) 2,148 mcg-113 mg-45 mg-17.4mg tab Take 1 tablet by mouth daily with breakfast. - multivitamin with minerals (MULTIPLE VITAMINS 55 PLUS ORAL) Take 1 capsule by mouth once daily. - Ascorbic Acid (VITAMIN C) 100 mg tablet - ZINC ORAL Take by mouth. Problem List As Of Date 07/28/2024 Noted Resolved History of temporal arteritis [Z87.39] 09/06/2015 Type 2 diabetes mellitus with hyperglycemia, wi*09/06/2015 Diabetes (HCC) [E11.9] Hypothyroidism, acquired [E03.9] 06/21/2020 Hypertriglyceridemia [E78.1] 06/21/2020 Obesity, Class I, BMI 30-34.9 [E66.811] 06/21/2020 Vitamin D deficiency [E55.9] 06/21/2020 Primary hypertension [I10] 12/12/2020 History of non-ST elevation myocardial infarcti*04/10/2022 Chronic kidney disease, stage 3a (HCC) [N18.31] 11/08/2022 06/12/2024 Bilateral pulmonary embolism (HCC) [I26.99] 06/12/2024 Encounter Status:Closed by PATRICIO GONGORA on 07/28/24[facility] 07-16-2024 Telephone encounter Note* Telephone Encounter - Cinthya Syed MA - 07/16/2024 11:57 AM EDT Pt notified. He stated he was under the impression that [facility] could provide 24 hour care done in shifts by nurses. I advised pt that he would have to check with [facility] to see if that is something offered and to have them contact the office if an order is needed for 24 hour HH care from [facility]. Pt voiced understanding. Cinthya Syed MA [facility]03-13-2025 Miscellaneous Notes* Telephone Encounter - Cinthya Syed MA - 07/16/2024 11:57 AM EDT Pt notified. He stated he was under the impression that [facility] could provide 24 hour care done in shifts by nurses. I advised pt that he would have to check with [facility] to see if that is something offered and to have them contact the office if an order is needed for 24 hour HH care from [facility]. Pt voiced understanding. Cinthya Syed MA * Telephone Encounter - Zac Linton MD - 07/16/2024 11:17 AM EDT Since she requires 24 hour care she would be best served by a short term stay in nursing facility. A letter from ks cannot make [facility] provide 24 hour care if they do not provide that service. Zac Linton MD * Telephone Encounter - Nicki Wheeler RN - 07/16/2024 10:23 AM EDT Spouse (Sin) calls to report that he is scheduled for a consultation appointment on Saturday to haveheart valve replacement. Sin requesting orders for [facility] and a letter for insurance justifying the care that is needed forpatient in absence. Sin reports that patient needs medication management and someone to stay with her at all times. Explained that [facility] didn't generally offer 24 hour care and he reports that is why he needs the letter. Recommended contacting insurance to see what services were offered but didn't appear that Sin was going to do that. Nicki Wheeler RN documented in this encounterOhio [facility]03-13-2025 Telephone encounter Note * Telephone Encounter - Zac Linton MD - 07/16/2024 11:17 AM EDT Since she requires 24 hour care she would be best served by a short term stay in nursing facility. A letter from me cannot make [facility] provide 24 hour care if they do not provide that service. Zac Linton MD [facility]03-13-2025 Telephone encounter Note* Telephone Encounter - Nicki Wheeler RN - 07/16/2024 10:23 AM EDT Spouse (Sin) calls to report that he is scheduled for a consultation appointment on Saturday to haveheart valve replacement. Sin requesting orders for [facility] and a letter for insurance justifying the care that is needed forpatient in absence. Sin reports that patient needs medication management and someone to stay with her at all times. Explained that [facility] didn't generally offer 24 hour care and he reports that is why he needs the letter. Recommended contacting insurance to see what services were offered but didn't appear that Sin was going to do that. Nicki Wheeler RN [facility]03-11-2025 Telephone encounter Note* Telephone Encounter - Jayla Jaeger MA - 07/14/2024 1:47 PM EDT Call to pt's spouse, Sin and notified him that PCP has sent in Abx to pharmacy for pt. Pt spouse understood. Jayla Jaeger MA [facility]03-11-2025 Miscellaneous Notes* Telephone Encounter - Jayla Jaeger MA - 07/14/2024 1:47 PM EDT Call to pt's spouse, Sin and notified him that PCP has sent in Abx to pharmacy for pt. Pt spouse understood. Jayla Jaeger MA * Telephone Encounter - Zac Linton MD - 07/14/2024 1:32 PM EDT OK for Macrobid as ordered Zac Linton MD * Telephone Encounter - Angie Martínez LPN - 07/14/2024 1:19 PM EDT Pt's calls to report that pt is having urinary frequency and dysuria x 1 week. Pt was on macrobid 100 mg bid x 7 days on 06/18/24 for uti. reports pt is having the same sx and needs another round of atb. denies fever, blood in urine, abdominal/flank pain. Please review and advise. Angie Martínez LPN documented in this encounterOhio [facility]03-11-2025 Telephone encounter Note * Telephone Encounter - Zac Linton MD - 07/14/2024 1:32 PM EDT OK for Macrobid as ordered Zac Linton MD [facility]03-11-2025 Telephone encounter Note* Telephone Encounter - Angie Martínez LPN - 07/14/2024 1:19 PM EDT Pt's calls to report that pt is having urinary frequency and dysuria x 1 week. Pt was on macrobid 100 mg bid x 7 days on 06/18/24 for uti. reports pt is having the same sx and needs another round of atb. denies fever, blood in urine, abdominal/flank pain. Please review and advise. Angie Martínez LPN [facility]02-20-2025 Telephone encounter Note* Telephone Encounter - Zac Linotn MD - 06/25/2024 4:46 PM EST Noted; since is home they can let us know if any other care is needed Zac Linton MD [facility]02-20-2025 Miscellaneous Notes* Telephone Encounter - Zac Linton MD - 06/25/2024 4:46 PM EST Noted; since is home they can let us know if any other care is needed Zac Linton MD * Telephone Encounter - Jayla Jaeger MA - 06/25/2024 1:02 PM EST Pt's spouse was d/c home from hospital. JANA. Jayla Jaeger MA * Telephone Encounter - Lee Syed MSW - 06/24/2024 9:12 AM EST Sw spoke with daughter Breanna and provided her with [facility] to check into respite care type ideas or options. Breanna notes that patient spouse is in the hospital. Typically patient home care provider. Spouse may need to go to rehab, not sure about this option yet. Breanna notes that she is waiting to see what the hospital has to say in regards to spouse. Breanna asked about patient going to rehab with spouse if Dr. Linton would write for this. Amber noted rehab is typically done after hospital stay for Medicare 3 inpatient night stay to then transition to rehab. Patient is at home at this time. Amber encouraged daughter to call [facility] for respite type option ideas for patient. Amber will also forward note to Dr. Linton office for his input. * Telephone Encounter - Ivonne Dolan RN - 06/23/2024 4:42 PM EST Daughter, Breanna, reports her step-father, patient's , went to ER last night because he doesn't know who he is, and he is still there. Nurses tell her he may not go home, may go to Rehab. Daughter is concerned about her mother, who is blind, has heart problems, and blood clots in her lungs and taking eliquis, and not able to care for herself. Reports her step dad took care of her. Daughter is unable to stay with mother, because daughter works. She can check in on her but she cannot stay with her. Reports the neighbor is staying with her mother right now. Daughter has tried to callher siblings for help but they will not answer. Daughter looking for help and doesn't know where to begin. Asking if pcp and SW can help her figure this out. Please phone Breanna at [phone] documented in this encounterOhio [facility]02-20-2025 Telephone encounter Note * Telephone Encounter - Jayla Jaeger MA - 06/25/2024 1:02 PM EST Pt's spouse was d/c home from hospital. FYI. Jayla Jaeger MA [facility]02-19-2025 Telephone encounter Note* Telephone Encounter - Lee Syed MSW - 06/24/2024 9:12 AM EST Amber spoke with daughter Breanna and provided her with [facility] to check into respite care type ideas or options. Breanna notes that patient spouse is in the hospital. Typically patient home care provider. Spouse may need to go to rehab, not sure about this option yet. Breanna notes that she is waiting to see what the hospital has to say in regards to spouse. Breanna asked about patient going to rehab with spouse if Dr. Linton would write for this. Amber noted rehab is typically done after hospital stay for Medicare 3 inpatient night stay to then transition to rehab. Patient is at home at this time. Amber encouraged daughter to call [facility] for respite type option ideas for patient. Amber will also forward note to Dr. Linton office for his input. [facility]02-18-2025 Telephone encounter Note* Telephone Encounter - Ivonne Dolan RN - 06/23/2024 4:42 PM EST Daughter, Breanna, reports her step-father, patient's , went to ER last night because he doesn't know who he is, and he is still there. Nurses tell her he may not go home, may go to Rehab. Daughter is concerned about her mother, who is blind, has heart problems, and blood clots in her lungs and taking eliquis, and not able to care for herself. Reports her step dad took care of her. Daughter is unable to stay with mother, because daughter works. She can check in on her but she cannot stay with her. Reports the neighbor is staying with her mother right now. Daughter has tried to callher siblings for help but they will not answer. Daughter looking for help and doesn't know where to begin. Asking if pcp and SW can help her figure this out. Please phone Breanna at [phone] [facility]02-14-2025 Telephone encounter Note* Telephone Encounter - Cinthya Syed MA - 06/19/2024 2:28 PM EST Pt notified. Appt made in 3 months. Reminder mailed to pt home. Cinthya Syed MA [facility]02-14-2025 Miscellaneous Notes* Telephone Encounter - Cinthya Syed MA - 06/19/2024 2:28 PM EST Pt notified. Appt made in 3 months. Reminder mailed to pt home. Cinthya Syed MA * Telephone Encounter - 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 APRN.CNP - 06/19/2024 12:42 PM EST Can you please call the patient and let her and her know that I reviewed her lab results. Thyroid was normal. Mild decreased kidney function noted. Triglycerides and LDL cholesterol just mildly elevated. A1c has gone up from 7.0 to 8.4. I see that Dr. Linton increased her insulin at last office visit. I would like them to keep a close eye on her fasting sugars. Ensure that she is staying well-hydrated throughout the day. I would recommend getting repeat labs in 3 months with office visit with PCP team. Please let me know if they have any questions. Thank you. 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 APRN.BAILEY documented in this encounterOhio [facility]02-14-2025 Telephone encounter Note * Telephone Encounter - 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 APRN.CNP - 06/19/2024 12:42 PM EST Can you please call the patient and let her and her know that I reviewed her lab results. Thyroid was normal. Mild decreased kidney function noted. Triglycerides and LDL cholesterol just mildly elevated. A1c has gone up from 7.0 to 8.4. I see that Dr. Linton increased her insulin at last office visit. I would like them to keep a close eye on her fasting sugars. Ensure that she is staying well-hydrated throughout the day. I would recommend getting repeat labs in 3 months with office visit with PCP team. Please let me know if they have any questions. Thank you. 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 APRN.CNP [facility]02-14-2025 Telephone encounter Note* Telephone Encounter - Jayla Jaeger MA - 06/19/2024 12:03 PM EST Pt spouse, Sin and pt on the phone. Notified them of results and recommendations below, verbalizesunderstanding. Pt states that she picked up pill yesterday and started it. Appreciates medication be called in. Jayla Jaeger MA [facility]02-14-2025 Miscellaneous Notes* Telephone Encounter - Jayla Jaeger MA - 06/19/2024 12:03 PM EST Pt spouse, Sin and pt on the phone. Notified them of results and recommendations below, verbalizesunderstanding. Pt states that she picked up pill yesterday and started it. Appreciates medication be called in. Jayla Jaeger MA * Telephone Encounter - Shankar Palacio APRN.CNP - 06/18/2024 9:40 AM EST Please let the patient know that her urine culture did grow bacteria in the form of e. Coli. Showing that she does have a UTI. I sent in an antibiotic for her to take for 7 days. The following approved medication requests have been transmitted electronically. Requested Prescriptions Signed Prescriptions Disp Refills nitrofurantoin monohydrate and macrocrystal (MACROBID) 100 mg capsule 14 capsule 0 Sig: Take 1 capsule by mouth two times a day with meals for 7 days. Shankar Palacio APRN.CNP documented in this encounterOhio State University [facility]02-13-2025 Telephone encounter Note * Telephone Encounter - Shankar Palacio APRN.BAILEY - 06/18/2024 9:40 AM EST Please let the patient know that her urine culture did grow bacteria in the form of e. Coli. Showing that she does have a UTI. I sent in an antibiotic for her to take for 7 days. The following approved medication requests have been transmitted electronically. Requested Prescriptions Signed Prescriptions Disp Refills nitrofurantoin monohydrate and macrocrystal (MACROBID) 100 mg capsule 14 capsule 0 Sig: Take 1 capsule by mouth two times a day with meals for 7 days. Shankar Palacio APRN.CNP [facility]02-11-2025 Telephone encounter Note* Telephone Encounter - Lindsay Tena LPN - 06/16/2024 11:31 AM EST Patient states she gave urine while here, lab notified orders in. [facility]02-11-2025 Miscellaneous Notes* Telephone Encounter - Lindsay Tena LPN - 06/16/2024 11:31 AM EST Patient states she gave urine while here, lab notified orders in. * Telephone Encounter - Shankar Palacio APRN.CNP - 06/16/2024 11:17 AM EST Order placed. Not sure if patient is still in the building. Shankar Palacio APRN.CNP * Telephone Encounter - Cinthya Syed MA - 06/16/2024 9:08 AM EST Pt at lab to do blood work, thinks she has a UTI wants to add urine test. Please place UA with Micro and Urine Culture. Cinthya Syed MA documented in this encounterOhio State [facility]02-11-2025 Telephone encounter Note * Telephone Encounter - Shankar Palacio APRN.CNP - 06/16/2024 11:17 AM EST Order placed. Not sure if patient is still in the building. Shankar Palacio APRN.CNP [facility]02-11-2025 Telephone encounter Note* Telephone Encounter - Cinthya Syed MA - 06/16/2024 9:08 AM EST Pt at lab to do blood work, thinks she has a UTI wants to add urine test. Please place UA with Micro and Urine Culture. Cinthya Syed MA [facility]02-07-2025 History of Present illness Narrative* Zac Linton MD - 06/12/2024 2:20 PM EST Chief Complaint Patient presents with: 6 Month Exam HPI Tarik Baker is a 78 year old female who presents here today for 6 month follow up. Here with . No bowel, Gi, or urinary issues. She has chronic UTI's and usually has to have 2 rounds of antibiotic to treat. Feels she needs 10 days of antibiotics to fulling treat. Urinary frequency, it is not every day. She does not feel like she has a urinary infection. Unsure if this is related to the lasixor if she has OAB. PE: Taking Eliquis 5 mg twice daily. Has been recommended to continue indefinitely, due to no provoking factors for PE and history of a fib. Palpitations: Taking aspirin 325 mg daily and Vasotec 20 mg daily and metoprolol tartrate 25 mg twice daily. Stable, no palpitation. Dr. Hinton at [facility], follows regularly. Had an episode of chest pain that lasted a few minutes, gave her an extra Eliquis and it resolved. Lower leg swelling: Taking Lasix 20 mg daily. Lipids: Taking fenofibrate 160 mg daily. Hypothyroidism: Taking Synthroid 175 mcg daily. No missed dosage. DM: He checks the BS before bed at Midnight and if it is under 200 he gives her a snack and then inthe AM around 7 AM. Checking BS once daily, FBS running 110. The BS at night can be 265 at times around 1 AM before going to bed. Using Humulin/Novolin 24 units AM and 24 units PM. feels thather insulin should be increased some. No hypoglycemic episodes. Mild neuropathy in feet. Has not seen eye doctor for some time. Vitamin D deficiency: Taking vitamin D2 50,000 IUs once weekly. Mood: Taking Zoloft 100 mg daily. Past medical history, appointments, medications, allergies reviewed. Previous Medical History PAST MEDICAL HISTORY Diagnosis Date Diabetes (HCC) Essential hypertension History of cardiovascular stress test 12/2020 ef 60, no ischemia Previous Surgical History PAST SURGICAL HISTORY Procedure Laterality Date TUBAL LIGATION HX Family History FAMILY HISTORY Problem Relation Age of Onset No Known Problems Mother No Known Problems Father No Known Problems Maternal Grandmother No Known Problems Maternal Grandfather No Known Problems Paternal Grandmother No Known Problems Paternal Grandfather Patient Allergies ALLERGIES Allergen Reactions Prednisone Other: See Comments Sugar went over 900 Current Medications Current Outpatient Medications on File Prior to Visit Medication Sig apixaban (ELIQUIS) 5 mg tab(s) Take 1 tablet by mouth two times a day. apixaban (ELIQUIS) 5 mg tab(s) Take 1 tablet by mouth two times a day. enalapril (VASOTEC) 20 mg tablet Take 1 tablet by mouth once daily. ergocalciferol 50,000 unit capsule (VITAMIN D2, DRISDOL) Take 1 capsule by mouth one time a week. Fenofibrate (LOFIBRA) 160 mg tablet Take 1 tablet by mouth once daily. furosemide (LASIX) 20 mg tablet Take 1 tablet by mouth once daily. levothyroxine (SYNTHROID) 175 mcg tablet Take 1 tablet by mouth once daily. Take on empty stomach. For Thyroid. metoprolol tartrate, short acting, (LOPRESSOR) 25 mg tablet Take 1 tablet by mouth two times a day. sertraline (ZOLOFT) 100 mg tablet Take 1 tablet by mouth once daily. red beet root-sour raines ext 250-0.5 mg chew Take 1 tablet by mouth once daily. nystatin (MYCOSTATIN) cream Apply to affected area two times a day. vit A,C,Q-Swwd-Uzvzav (PRESERVISION AREDS) 2,148 mcg-113 mg-45 mg-17.4mg tab Take 1 tablet by mouthdaily with breakfast. insulin NPH injection (HumuLIN N,NovoLIN N) 24 units in the am and 24 units in the pm. aspirin, enteric coated (ASPIRIN, ENTERIC COATED) 325 mg EC tablet Take 1 tablet by mouth once daily. Take with food. (Patient not taking: Reported on 02/14/2024) multivitamin with minerals (MULTIPLE VITAMINS 55 PLUS ORAL) Take 1 capsule by mouth once daily. Ascorbic Acid (VITAMIN C) 100 mg tablet ZINC ORAL Take by mouth. No current facility-administered medications on file prior to visit. Social History Social History Tobacco Use Smoking status: Never Smokeless tobacco: Never Vaping Use Vaping status: Never Used Substance Use Topics Alcohol use: Never Drug use: Never EXAM: BP 120/72 Pulse 80 Resp 16 Wt 92.9 kg (204 lb 12.9 oz) SpO2 97% BMI 34.08 kg/m General Appearance: Well appearing, alert, in no acute distress, well-hydrated, well nourished. andWalker. Lungs: Lungs clear to auscultation. No wheezing, rhonchi, rales.. Heart: RRR without murmur, gallop, or rubs. No ectopy. Health Maintenance List Bone Density Screening Never done Hemoglobin/Hematocrit due on 12/06/2021 Dilated Retinal Exam due on 04/10/2023 Urine Albumin:Creatinine Ratio due on 04/18/2023 Advance Directive Discussion due on 05/06/2024 Influenza Vaccine(1) due on 11/02/2024 RSV Vaccine(1 - 1-dose 75+ series) due on 12/01/2024 Shingrix Vaccine(1 of 2) due on 12/01/2024 Pneumococcal Vaccine: 50+(2 of 2 - PCV) due on 12/01/2024 Covid-19 Vaccine(1 - season) due on 06/12/2025 HbA1C due on 06/14/2024 DTaP,Tdap,Td Vaccine(2 - Td or Tdap) due on 10/14/2024 Diabetic Foot Exam due on 12/01/2024 Depression Screening due on 12/01/2024 Anxiety Screening due on 12/01/2024 LDL Cholesterol due on 12/12/2024 Serum Creatinine due on 01/01/2025 Annual PCP Team Chronic Disease Visit due on 06/12/2025 BP Controlled (<130/80) due on 06/12/2025 Hepatitis C Screening Completed Data reviewed None ASSESSMENT/PLAN: 1. Type 2 diabetes mellitus with hyperglycemia, with long-term current use of insulin (HCC) - ICD9:250.00, 790.29, V58.67, ICD10: E11.65, Z79.4 (primary diagnosis) - Control undetermined, due for labs - Continue current medications - Counseled on healthy diet and regular exercise - Discussed need for and benefit of weight loss. BMI 34.08 kg/(m^2) - adjust insulin to 22 units AM and 26 units in PM 2. Bilateral pulmonary embolism (HCC) - ICD9: 415.19, ICD10: I26.99 Continue current medications; indefinite anticoagulation. 3. Hypothyroidism, acquired - ICD9: 244.9, ICD10: E03.9 - Instructed patient on importance of taking on an empty stomach either first thing in the morning or at bedtime. Continue current medications. 4. Hypertriglyceridemia - ICD9: 272.1, ICD10: E78.1 - Control undetermined, due for labs - Continue current medications - Counseled on healthy diet and regular exercise - Discussed need for and benefit of weight loss. BMI 34.08 kg/(m^2) 5. Vitamin D deficiency - ICD9: 268.9, ICD10: E55.9 Continue current medications. 6. Primary hypertension - ICD9: 401.9, ICD10: I10 - Controlled - Continue current medications - Recommend home blood pressure monitoring, to bring results to next visit - Encouraged sodium restriction, DASH or Mediterranean diet - Recommend regular aerobic exercise - Discussed need for and benefit of weight loss. BMI 34.08 kg/(m^2) - continue with Cardio 7. History of non-ST elevation myocardial infarction (NSTEMI) - ICD9: 412, ICD10: I25.2 Continue current medications. Continue with Cardio 8. Leg swelling - ICD9: 729.81, ICD10: M79.89 Stable Continue current medications. 9. Type 2 diabetes mellitus with diabetic polyneuropathy, with long-term current use of insulin (HCC) - ICD9: 250.60, 357.2, V58.67, ICD10: E11.42, Z79.4 - Control undetermined, due for labs - Continue current medications - Counseled on healthy diet and regular exercise - Discussed need for and benefit of weight loss. BMI 34.08 kg/(m^2) - increase insulin to 22 units in AM and 26 units PM - INSULIN NPH ISOPHANE U-100 HUMAN 100 UNIT/ML SUBCUTANEOUS SUSPENSION 10. Recurrent UTI Consider 10 day course of antibiotic for next infection Get labs in the next week; notify of results Follow up in 6 months with fasting labs and urine test prior. I agree with the Chief Complaint, ROS, and Past Histories independently gathered by the clinical rn support services and the remaining scribed note accurately describes my personal service to the patient. Medical Decision Making: Problems: Moderate: 2+ stable chronic illnesses Data: Unique test(s) ordered: 3+ Risk: Moderate: Drug management Medical Decision Making Level: 4 - Moderate Zac Linton MD The documentation for this note was completed by Cinthya Syed MA acting as scribe for Zac Linton MD. June 12, 2024 2:34 PM. Cinthya Syed MA documented in this encounterOhio [facility] NoteHNO ID: [id number] Author: ZAC LINTON MD Service: ? Author Type: Physician Type: Progress Notes Filed: 06/12/2024 15:13 Note Text: Chief Complaint Patient presents with: 6 Month Exam HPI Tarik Baker is a 78 year old female who presents here today for 6 month follow up. Here with . No bowel, Gi, or urinary issues. She has chronic UTI's and usually has to have 2 rounds of antibiotic to treat. Feels she needs 10 days of antibiotics to fulling treat. Urinary frequency, it is not every day. She does not feel like she has a urinary infection. Unsure if this is related to the lasix or if she has OAB. PE: Taking Eliquis 5 mg twice daily. Has been recommended to continue indefinitely, due to no provoking factors for PE and history of a fib. Palpitations: Taking aspirin 325 mg daily and Vasotec 20 mg daily and metoprolol tartrate 25 mg twice daily. Stable, no palpitation. Dr. Hinton at [facility], follows regularly. Had an episode of chest pain that lasted a few minutes, gave her an extra Eliquis and it resolved. Lower leg swelling: Taking Lasix 20 mg daily. Lipids: Taking fenofibrate 160 mg daily. Hypothyroidism: Taking Synthroid 175 mcg daily. No missed dosage. DM: He checks the BS before bed at Midnight and if it is under 200 he gives her a snack and then in the AM around 7 AM. Checking BS once daily, FBS running 110. The BS at night can be 265 at times around 1 AM before going to bed. Using Humulin/Novolin 24 units AM and 24 units PM. feels that her insulin should be increased some. No hypoglycemic episodes. Mild neuropathy in feet. Has not seen eye doctor for some time. Vitamin D deficiency: Taking vitamin D2 50,000 IUs once weekly. Mood: Taking Zoloft 100 mg daily. Past medical history, appointments, medications, allergies reviewed. Previous Medical History PAST MEDICAL HISTORY Diagnosis Date Diabetes (HCC) Essential hypertension History of cardiovascular stress test 12/2020 ef 60, no ischemia Previous Surgical History PAST SURGICAL HISTORY Procedure Laterality Date TUBAL LIGATION HX Family History FAMILY HISTORY Problem Relation Age of Onset No Known Problems Mother No Known Problems Father No Known Problems Maternal Grandmother No Known Problems Maternal Grandfather No Known Problems Paternal Grandmother No Known Problems Paternal Grandfather Patient Allergies ALLERGIES Allergen Reactions Prednisone Other: See Comments Sugar went over 900 Current Medications Current Outpatient Medications on File Prior to Visit Medication Sig apixaban (ELIQUIS) 5 mg tab(s) Take 1 tablet by mouth two times a day. apixaban (ELIQUIS) 5 mg tab(s) Take 1 tablet by mouth two times a day. enalapril (VASOTEC) 20 mg tablet Take 1 tablet by mouth once daily. ergocalciferol 50,000 unit capsule (VITAMIN D2, DRISDOL) Take 1 capsule by mouth one time a week. Fenofibrate (LOFIBRA) 160 mg tablet Take 1 tablet by mouth once daily. furosemide (LASIX) 20 mg tablet Take 1 tablet by mouth once daily. levothyroxine (SYNTHROID) 175 mcg tablet Take 1 tablet by mouth once daily. Take on empty stomach. For Thyroid. metoprolol tartrate, short acting, (LOPRESSOR) 25 mg tablet Take 1 tablet by mouth two times a day. sertraline (ZOLOFT) 100 mg tablet Take 1 tablet by mouth once daily. red beet root-sour raines ext 250-0.5 mg chew Take 1 tablet by mouth once daily. nystatin (MYCOSTATIN) cream Apply to affected area two times a day. vit A,C,V-Luqi-Rsaqzu (PRESERVISION AREDS) 2,148 mcg-113 mg-45 mg-17.4mg tab Take 1 tablet by mouth daily with breakfast. insulin NPH injection (HumuLIN N,NovoLIN N) 24 units in the am and 24 units in the pm. aspirin, enteric coated (ASPIRIN, ENTERIC COATED) 325 mg EC tablet Take 1 tablet by mouth once daily. Take with food. (Patient not taking: Reported on 02/14/2024) multivitamin with minerals (MULTIPLE VITAMINS 55 PLUS ORAL) Take 1 capsule by mouth once daily. Ascorbic Acid (VITAMIN C) 100 mg tablet ZINC ORAL Take by mouth. No current facility-administered medications on file prior to visit. Social History Social History Tobacco Use Smoking status: Never Smokeless tobacco: Never Vaping Use Vaping status: Never Used Substance Use Topics Alcohol use: Never Drug use: Never EXAM: BP 120/72 Pulse 80 Resp 16 Wt 92.9 kg (204 lb 12.9 oz) SpO2 97% BMI 34.08 kg/m? General Appearance: Well appearing, alert, in no acute distress, well-hydrated, well nourished. and Walker. Lungs: Lungs clear to auscultation. No wheezing, rhonchi, rales.. Heart: RRR without murmur, gallop, or rubs. No ectopy. Health Maintenance List Bone Density Screening Never done Hemoglobin/Hematocrit due on 12/06/2021 Dilated Retinal Exam due on 04/10/2023 Urine Albumin:Creatinine Ratio due on 04/18/2023 Advance Directive Discussion due on 05/06/2024 Influenza Vaccine(1) due on 11/02/2024 (more content not included)...[facility]01-21-2025 Telephone encounter Note* Telephone Encounter - Zac Linton MD - 05/26/2024 10:29 AM EST OK to refill as ordered Zac Linton MD [facility]01-21-2025 Miscellaneous Notes* Telephone Encounter - Zac Linton MD - 05/26/2024 10:29 AM EST OK to refill as ordered Zac Linton MD * Telephone Encounter - Jayla Jaeger MA - 05/26/2024 9:37 AM EST Please see request below. Pt was just sent in Cipro on 05/22/24 #10 tablets. This was sent in for a refill for a UTI? Jayla Jaeger MA * Telephone Encounter - Nanci Wills - 05/26/2024 9:31 AM EST Patient has been identified by name and date of : Yes, Patient's spouse phones for refill(s): Requested Prescriptions Pending Prescriptions Disp Refills ciprofloxacin HCl (CIPRO) 500 mg tablet 10 tablet 0 Sig: Take 1 tablet by mouth two times a day for 5 days. Date of last office visit in primary care: 02/14/2024 Date of next office visit in primary care: 06/11/2024 Please advise. Thank you. Nanci Wills. documented in this encounterOhio [facility]01-21-2025 Telephone encounter Note * Telephone Encounter - Jayla Jaeger MA - 05/26/2024 9:37 AM EST Please see request below. Pt was just sent in Cipro on 05/22/24 #10 tablets. This was sent in for a refill for a UTI? Jayla Jaeger MA [facility]01-21-2025 Telephone encounter Note* Telephone Encounter - Nanci Wills - 05/26/2024 9:31 AM EST Patient has been identified by name and date of : Yes, Patient's spouse phones for refill(s): Requested Prescriptions Pending Prescriptions Disp Refills ciprofloxacin HCl (CIPRO) 500 mg tablet 10 tablet 0 Sig: Take 1 tablet by mouth two times a day for 5 days. Date of last office visit in primary care: 02/14/2024 Date of next office visit in primary care: 06/11/2024 Please advise. Thank you. Nanci Wills. [facility]01-17-2025 Telephone encounter Note* Telephone Encounter - Zac Linton MD - 05/22/2024 8:35 AM EST Ok for Cipro as ordered Zac Linton MD [facility]01-17-2025 Miscellaneous Notes* Telephone Encounter - Zac Linton MD - 05/22/2024 8:35 AM EST Ok for Cipro as ordered Zac Linton MD * Telephone Encounter - Nanci Wills - 05/20/2024 4:22 PM EST Alejandra is calling Zac Linton MD today to request Refill on her antibiotic for her UTI. She is not sure of what the name of it is. Patient has been identified by name and birthdate. Duration of symptoms: N/A Person calling: self Call patient at: at home [phone] (home) Was an appointment scheduled: No Closing statement: Results or non-symptom based questions: Thank you for calling [facility], your call will be returned within the next business day. Nanci Wills documented in this encounterOhio [facility]01-15-2025 Telephone encounter Note * Telephone Encounter - Nanci Wills - 05/20/2024 4:22 PM EST Alejandra is calling Zac Linton MD today to request Refill on her antibiotic for her UTI. She is not sure of what the name of it is. Patient has been identified by name and birthdate. Duration of symptoms: N/A Person calling: self Call patient at: at home [phone] (home) Was an appointment scheduled: No Closing statement: Results or non-symptom based questions: Thank you for calling [facility], your call will be returned within the next business day. Nanci Wills [facility]12-16-2024 Telephone encounter Note* Telephone Encounter - Breanna Cunningham - 04/20/2024 11:27 AM EST Contacting Cardiology office as they increased the medication. Breanna Chawla [facility]12-16-2024 Miscellaneous Notes* Telephone Encounter - Breanna Cunningham - 04/20/2024 11:27 AM EST Contacting Cardiology office as they increased the medication. Breanna Florentino Pss documented in this encounterOhio [facility]12-10-2024 Telephone encounter Note * Telephone Encounter - Jayla Jaeger MA - 04/14/2024 3:02 PM EST Form has been faxed back to the [employer] ATTN: Shamika Nunez at F#: [phone]. Will [address] in pt's chart under scanned documents in future. Jayla Jaeger MA [facility]12-10-2024 Miscellaneous Notes* Telephone Encounter - Jayla Jaeger MA - 04/14/2024 3:02 PM EST Form has been faxed back to the [employer] ATTN: Shamika Nunez at F#: [phone]. [address] in pt's chart under scanned documents in future. Jayla Jaeger MA * Telephone Encounter - Zac Linton MD - 04/14/2024 2:49 PM EST Form done; same as last year; for providing basic medical care, hygiene, safety needs and transportation; 2 episodes/month for 3 days each. Zac Linton MD * Telephone Encounter - Cinthya Syed MA - 04/13/2024 3:56 PM EST Pt daughter Breanna Jackman needs FMLA forms completed/updated for [facility] to help with patient care and appts. Fax once completed. Cinthya Syed MA documented in this encounterOhio [facility]12-10-2024 Telephone encounter Note * Telephone Encounter - Zac Linton MD - 04/14/2024 2:49 PM EST Form done; same as last year; for providing basic medical care, hygiene, safety needs and transportation; 2 episodes/month for 3 days each. Zac Linton MD [facility]12-09-2024 Telephone encounter Note* Telephone Encounter - Cinthya Syed MA - 04/13/2024 3:56 PM EST Pt daughter Breanna Jackman needs FMLA forms completed/updated for [employer] to help with patient care and appts. Fax once completed. Cinthya Syed MA [facility]11-12-2024 Telephone encounter Note* Telephone Encounter - Lindsay Tena LPN - 03/17/2024 2:31 PM EST Patient notified. Verbalized understanding. [facility]11-12-2024 Miscellaneous Notes* Telephone Encounter - Lindsay Tena LPN - 03/17/2024 2:31 PM EST Patient notified. Verbalized understanding. * Telephone Encounter - Zac Linton MD - 03/17/2024 2:17 PM EST OK for Cipro for 5 days as ordered Zac Linton MD * Telephone Encounter - Ivonne Dolan RN - 03/17/2024 11:44 AM EST reports pt is having UTI s/s since yesterday. Pt reports urgency, frequency, burning with urination, and was up all night going to the bathroom. Pt states she does not want to come in for an appt if she doesn't have to. Pt states she is willing to give a urine sample if pcp would place order. Pt also wants pcp to know she takes eliquis. Please advise and phone patient with reply: [phone] [facility] Philip documented in this encounterOhio State [facility]11-12-2024 Telephone encounter Note * Telephone Encounter - Zac Linton MD - 03/17/2024 2:17 PM EST OK for Cipro for 5 days as ordered Zac Linton MD [facility]11-12-2024 Telephone encounter Note* Telephone Encounter - Ivonne Dolan RN - 03/17/2024 11:44 AM EST reports pt is having UTI s/s since yesterday. Pt reports urgency, frequency, burning with urination, and was up all night going to the bathroom. Pt states she does not want to come in for an appt if she doesn't have to. Pt states she is willing to give a urine sample if pcp would place order. Pt also wants pcp to know she takes eliquis. Please advise and phone patient with reply: [phone] [facility] Philip [facility]10-25-2024 Telephone encounter Note* Telephone Encounter - Zac Linton MD - 02/28/2024 11:41 AM EDT Noted Zac Linton MD [facility]10-25-2024 Miscellaneous Notes* Telephone Encounter - Zac Linton MD - 02/28/2024 11:41 AM EDT Noted Zac Linton MD * Telephone Encounter - Alexandra Florentino LPN - 02/28/2024 9:47 AM EDT Padmini with [facility] nursing called to let you know pt is being d/c from nursing. Pt has met her goals. No call back needed. Alexandra Florentino LPN documented in this encounterOhio [facility]10-25-2024 Telephone encounter Note * Telephone Encounter - Alexandra Florentino LPN - 02/28/2024 9:47 AM EDT Padmini with [facility] nursing called to let you know pt is being d/c from nursing. Pt has met her goals. No call back needed. Alexandra Florentino LPN [facility]10-21-2024 Telephone encounter Note* Telephone Encounter - Melissa Castro LPN - 02/24/2024 9:17 AM EDT Patient Sin calling having issues with [facility] pharmacy and now wants 90 day rx sent [facility], she is almost out of medication. Pending rx to file. Please advise The patient has been identified by name and date of : Yes Caregiver verified no other encounters exist for this prescription request: Yes Caregiver confirmed with patient/requestor that no other refills are due, in the near future, with this provider at this time: Yes The last office visit in the department: 02/14/2024 Does the patient have a future office visit with this provider/department: Yes 06/11/2024 Requested Prescriptions Pending Prescriptions Disp Refills apixaban (ELIQUIS) 5 mg tab(s) 180 tablet 3 Sig: Take 1 tablet by mouth two times a day. Melissa Castro LPN February 24, 2024 9:19 AM [facility]10-21-2024 Miscellaneous Notes* Telephone Encounter - Melissa Castro LPN - 02/24/2024 9:17 AM EDT Patient Sin calling having issues with [facility] pharmacy and now wants 90 day rx sent [facility], she is almost out of medication. Pending rx to file. Please advise The patient has been identified by name and date of : Yes Caregiver verified no other encounters exist for this prescription request: Yes Caregiver confirmed with patient/requestor that no other refills are due, in the near future, with this provider at this time: Yes The last office visit in the department: 02/14/2024 Does the patient have a future office visit with this provider/department: Yes 06/11/2024 Requested Prescriptions Pending Prescriptions Disp Refills apixaban (ELIQUIS) 5 mg tab(s) 180 tablet 3 Sig: Take 1 tablet by mouth two times a day. Melissa Castro LPN February 24, 2024 9:19 AM documented in this encounterOhio [facility]10-15-2024 Telephone encounter Note * Telephone Encounter - Shankar Palacio APRN.CNP - 02/18/2024 11:43 AM EDT The following approved medication requests have been transmitted electronically. Requested Prescriptions Pending Prescriptions Disp Refills apixaban (ELIQUIS) 5 mg tab(s) 180 tablet 3 Sig: Take 1 tablet by mouth two times a day. Shankar Palacio APRN.CNP [facility]10-15-2024 Miscellaneous Notes* Telephone Encounter - Shankar Palacio APRN.CNP - 02/18/2024 11:43 AM EDT The following approved medication requests have been transmitted electronically. Requested Prescriptions Pending Prescriptions Disp Refills apixaban (ELIQUIS) 5 mg tab(s) 180 tablet 3 Sig: Take 1 tablet by mouth two times a day. Shankar Palacio APRN.BAILEY * Telephone Encounter - Greer Simmons RN - 02/18/2024 11:24 AM EDT Patient's calls and states that prescription was cancelled. asking if this can be resent to [facility]? Please review and advise, Greer Simmons RN documented in this encounterOhio [facility]10-15-2024 Telephone encounter Note * Telephone Encounter - Greer Simmons RN - 02/18/2024 11:24 AM EDT Patient's calls and states that prescription was cancelled. asking if this can be resent to [facility]? Please review and advise, Greer Simmons RN [facility]10-15-2024 Telephone encounter Note* Telephone Encounter - Jocy Ceja RN - 02/18/2024 8:23 AM EDT Called and left a detailed voicemail notifying [facility] Nurse of providers message. Clinic phone number was left in case she had any questions. Jocy Ceja RN [facility]10-15-2024 Miscellaneous Notes* Telephone Encounter - Jocy Ceja RN - 02/18/2024 8:23 AM EDT Called and left a detailed voicemail notifying [facility] Nurse of providers message. Clinic phone number was left in case she had any questions. Jocy Ceja, RN * Telephone Encounter - Zac Linton MD - 02/17/2024 5:25 PM EDT Noted May just continue to monitor Zac Linton MD * Telephone Encounter - Guillermina Ordonez RN - 02/17/2024 4:53 PM EDT Concetta with [facility] calling and reports pt's BP was elevated at 148/92 during today's visit. Reports patient is asymptomatic. Please advise patient. Thank you. documented in this encounterOhio State [facility]10-14-2024 Telephone encounter Note * Telephone Encounter - Zac Linton MD - 02/17/2024 5:25 PM EDT Noted May just continue to monitor Zac Linton MD [facility]10-14-2024 Telephone encounter Note* Telephone Encounter - Guillermina Ordonez RN - 02/17/2024 4:53 PM EDT Concetta with [facility] calling and reports pt's BP was elevated at 148/92 during today's visit. Reports patient is asymptomatic. Please advise patient. Thank you. [facility]-14-[facility]24 Telephone encounter Note* Telephone Encounter - Shankar Palacio APRN.CNP - 02/17/2024 11:44 AM EDT Sent. The following approved medication requests have been transmitted electronically. Requested Prescriptions Pending Prescriptions Disp Refills apixaban (ELIQUIS) 5 mg tab(s) 14 tablet 0 Sig: Take 1 tablet by mouth two times a day. Shankar Palacio APRN.CNP [facility]10-14-2024 Miscellaneous Notes* Telephone Encounter - Shankar Palacio APRN.CNP - 02/17/2024 11:44 AM EDT Sent. The following approved medication requests have been transmitted electronically. Requested Prescriptions Pending Prescriptions Disp Refills apixaban (ELIQUIS) 5 mg tab(s) 14 tablet 0 Sig: Take 1 tablet by mouth two times a day. Shankar Palacio APRN.CNP * Telephone Encounter - Greer Simmons RN - 02/17/2024 11:30 AM EDT Patient's Sin calls and is requesting Apixaban 5 mg to be sent to local pharmacy until mail order prescription is received through mail. Please review and advise, Greer Simmons RN documented in this encounterOhio [facility]10-14-[facility]24 Telephone encounter Note * Telephone Encounter - Greer Simmons RN - 02/17/2024 11:30 AM EDT Patient's Sin calls and is requesting Apixaban 5 mg to be sent to local pharmacy until mail order prescription is received through mail. Please review and advise, Greer Simmons RN [facility]10-11-2024 Instructions* Patient Instructions* 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 APRN.CNP - 02/14/2024 11:17 AM EDT Get repeat labs in 1 month. Schedule follow up with Dr. Anne at [facility] Continue to take eliquis as prescribed. Reschedule cardiology appointment Continue supportive care at home Stay well hydrated Will continue with home health, nursing, PT, and OT Red flag symptoms, headache, worsening shortness of breath, or chest pain call 911. Follow up as scheduled documented in this encounterOhio [facility]10-11-2024 History of Present illness Narrative* 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 APRN.REELING MACHINE OPERATOR - 02/14/2024 11:00 AM EDT This is a 78 year old female who presents today with: Patient presents with: ER F/U: Seen in [facility] 02/06 and was diagnosed with blood clots, has home health and has been doing well, states SOB has improved HISTORY OF PRESENT ILLNESS: Tarik Baker is a 78 year old female. Patient presents with: ER F/U: Seen in [facility] 02/06 and was diagnosed with blood clots, has home health and has been doing well, states SOB has improved HOSPITAL/ER FOLLOW UP: Reason for visit: SOB Which facility: [facility] ER Date of visit: 02/04/2024-02/06/2024 Diagnosis: Bilateral pulmonary embolism Testing done: Chest x-ray showed no acute cardiopulmonary process. CT of chest reveals a bilateral significant pulmonary embolism. Dr. Singh was consulted, no need for surgery . Negative troponin, BNP, lactic acid. EKG showed normal sinus rhythm, right bundle branch block. Treatment given: Heparin drip initiated in ER.Discharged on Eliquis 5 mg twice daily. Refer to Dr. Anne in 1 month, [facility] pulmonology. Current symptoms: SOB is improving. Doing well on Eliquis, No chest pain or dizziness. Home health is coming to the house a couple times a week, PT, OT, and home health nurse. Needs to schedule follow up with Dr. Anne. PAST MEDICAL HISTORY: PAST MEDICAL HISTORY Diagnosis Date Diabetes (HCC) Essential hypertension History of cardiovascular stress test 12/2020 ef 60, no ischemia PAST SURGICAL HISTORY Procedure Laterality Date TUBAL LIGATION HX ALLERGIES Prednisone MEDICATIONS Current Outpatient Medications Medication Sig enalapril (VASOTEC) 20 mg tablet Take 1 tablet by mouth once daily. ergocalciferol 50,000 unit capsule (VITAMIN D2, DRISDOL) Take 1 capsule by mouth one time a week. Fenofibrate (LOFIBRA) 160 mg tablet Take 1 tablet by mouth once daily. furosemide (LASIX) 20 mg tablet Take 1 tablet by mouth once daily. levothyroxine (SYNTHROID) 175 mcg tablet Take 1 tablet by mouth once daily. Take on empty stomach. For Thyroid. metoprolol tartrate, short acting, (LOPRESSOR) 25 mg tablet Take 1 tablet by mouth two times a day. sertraline (ZOLOFT) 100 mg tablet Take 1 tablet by mouth once daily. apixaban (ELIQUIS) 5 mg tab(s) Take 1 tablet by mouth two times a day. red beet root-sour raines ext 250-0.5 mg chew Take 1 tablet by mouth once daily. nystatin (MYCOSTATIN) cream Apply to affected area two times a day. vit A,C,F-Umuk-Kqfkwd (PRESERVISION AREDS) 2,148 mcg-113 mg-45 mg-17.4mg tab Take 1 tablet by mouthdaily with breakfast. insulin NPH injection (HumuLIN N,NovoLIN N) 24 units in the am and 24 units in the pm. aspirin, enteric coated (ASPIRIN, ENTERIC COATED) 325 mg EC tablet Take 1 tablet by mouth once daily. Take with food. multivitamin with minerals (MULTIPLE VITAMINS 55 PLUS ORAL) Take 1 capsule by mouth once daily. Ascorbic Acid (VITAMIN C) 100 mg tablet ZINC ORAL Take by mouth. No current facility-administered medications for this visit. FAMILY HISTORY Problem Relation Age of Onset No Known Problems Mother No Known Problems Father No Known Problems Maternal Grandmother No Known Problems Maternal Grandfather No Known Problems Paternal Grandmother No Known Problems Paternal Grandfather Social History Tobacco Use Smoking status: Never Smokeless tobacco: Never Vaping Use Vaping status: Never Used Substance Use Topics Alcohol use: Never Drug use: Never REVIEW OF SYSTEMS GENERAL: No weight loss, malaise or fevers/chills HEENT: Negative for frequent or significant headaches, No changes in hearing or vision. NECK: Negative for lumps, goiter, pain and significant neck swelling RESPIRATORY: + SOB CARDIOVASCULAR: Negative for chest pain, leg swelling, orthopnea, or palpitations GI: No nausea, vomiting, or diarrhea/constipation. No hematochezia/melena. No heartburn or reflux symptoms. : No history of dysuria, frequency or incontinence MUSCULOSKELETAL: Negative for joint pain or swelling. SKIN: Negative for lesions, rash, and itching ENDOCRINE: Negative for cold or heat intolerance, polyuria, polydipsia and goiter NEURO: No history of headaches, syncope, paralysis, seizures or tremors MOOD: Negative for depression, anxiety, or suicidal ideation. EXAM: BP 138/90 (BP Site: Right Arm, BP Position: Sitting) Pulse 76 Resp 18 Wt 89.9 kg (198 lb 3.1 oz) SpO2 96% BMI 32.98 kg/m PHYSICAL EXAM: General Appearance: Well appearing, alert, in no acute distress, well-hydrated, well nourished.. Skin: Skin color, texture, turgor normal, no suspicious rashes or lesions. Head: Normocephalic, no masses, lesions, tenderness or abnormalities. Eyes: Anicteric sclera. Extraocular movements are intact. Lungs: Lungs clear to auscultation. No wheezing, rhonchi, rales.. Heart: RRR without murmur, gallop, or rubs. No ectopy. Extremities: No deformities, edema, skin discoloration, clubbing or cyanosis. Good capillary refill. Peripheral Pulses: Normal, Capillary refill <2secs, strong peripheral pulses, Pulses palpable. Neurologic: in wheelchair. Reflexes normal and symmetric. Sensation grossly intact. ASSESSMENT/PLAN: 1. Hospital discharge follow-up - ICD9: V67.59, ICD10: Z09 (primary diagnosis) - Doing well since hospital discharge. 2. Bilateral pulmonary embolism (HCC) - ICD9: 415.19, ICD10: I26.99 - Instructed to schedule follow up with Dr. Anne at [facility] - Get repeat labs in 1 month - Continue with Eliquis as prescribed. - Red flag symptoms given the patient and , they both verbalized understanding when to seek emergency care. - Reschedule appointment that was missed with cardiology at [facility]. - COMPLETE BLOOD COUNT AND DIFFERENTIAL - COMPREHENSIVE METABOLIC PANEL Follow-up as scheduled or sooner pending test results. Discussed treatment plan and patient voices understanding. Patient's questions answered appropriately. Medications and potential side effects were discussed and patient voices understanding. 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 APRN.REELING MACHINE OPERATOR This note was partially generated using Dragon voice recognition system. Note was reviewed for accuracy. There may be minor misspellings or grammar miscues with [employer] voice recognition. documented in this encounterOhio [facility] University [facility]10-11-2024 NoteHNO ID: [id number] Author: PADMINI MOSER APRN.BAILEY Service: ? Author Type: Nurse Practitioner Type: Progress Notes Filed: 02/14/2024 11:47 Note Text: This is a 78 year old female who presents today with: Patient presents with: ER F/U: Seen in [facility] 02/06 and was diagnosed with blood clots, has home health and has been doing well, states SOB has improved HISTORY OF PRESENT ILLNESS: Tarik Baker is a 78 year old female. Patient presents with: ER F/U: Seen in [facility] 02/06 and was diagnosed with blood clots, has home health and has been doing well, states SOB has improved HOSPITAL/ER FOLLOW UP: Reason for visit: SOB Which facility: [facility] ER Date of visit: 02/04/2024-02/06/2024 Diagnosis: Bilateral pulmonary embolism Testing done: Chest x-ray showed no acute cardiopulmonary process. CT of chest reveals a bilateral significant pulmonary embolism. Dr. Singh was consulted, no need for surgery . Negative troponin, BNP, lactic acid. EKG showed normal sinus rhythm, right bundle branch block. Treatment given: Heparin drip initiated in ER.Discharged on Eliquis 5 mg twice daily. Refer to Dr. Anne in 1 month, [facility] pulmonology. Current symptoms: SOB is improving. Doing well on Eliquis, No chest pain or dizziness. Home health is coming to the house a couple times a week, PT, OT, and home health nurse. Needs to schedule follow up with Dr. Anne. PAST MEDICAL HISTORY: PAST MEDICAL HISTORY Diagnosis Date Diabetes (HCC) Essential hypertension History of cardiovascular stress test 12/2020 ef 60, no ischemia PAST SURGICAL HISTORY Procedure Laterality Date TUBAL LIGATION HX ALLERGIES Prednisone MEDICATIONS Current Outpatient Medications Medication Sig enalapril (VASOTEC) 20 mg tablet Take 1 tablet by mouth once daily. ergocalciferol 50,000 unit capsule (VITAMIN D2, DRISDOL) Take 1 capsule by mouth one time a week. Fenofibrate (LOFIBRA) 160 mg tablet Take 1 tablet by mouth once daily. furosemide (LASIX) 20 mg tablet Take 1 tablet by mouth once daily. levothyroxine (SYNTHROID) 175 mcg tablet Take 1 tablet by mouth once daily. Take on empty stomach. For Thyroid. metoprolol tartrate, short acting, (LOPRESSOR) 25 mg tablet Take 1 tablet by mouth two times a day. sertraline (ZOLOFT) 100 mg tablet Take 1 tablet by mouth once daily. apixaban (ELIQUIS) 5 mg tab(s) Take 1 tablet by mouth two times a day. red beet root-sour raines ext 250-0.5 mg chew Take 1 tablet by mouth once daily. nystatin (MYCOSTATIN) cream Apply to affected area two times a day. vit A,C,O-Xrex-Lxguiu (PRESERVISION AREDS) 2,148 mcg-113 mg-45 mg-17.4mg tab Take 1 tablet by mouth daily with breakfast. insulin NPH injection (HumuLIN N,NovoLIN N) 24 units in the am and 24 units in the pm. aspirin, enteric coated (ASPIRIN, ENTERIC COATED) 325 mg EC tablet Take 1 tablet by mouth once daily. Take with food. multivitamin with minerals (MULTIPLE VITAMINS 55 PLUS ORAL) Take 1 capsule by mouth once daily. Ascorbic Acid (VITAMIN C) 100 mg tablet ZINC ORAL Take by mouth. No current facility-administered medications for this visit. FAMILY HISTORY Problem Relation Age of Onset No Known Problems Mother No Known Problems Father No Known Problems Maternal Grandmother No Known Problems Maternal Grandfather No Known Problems Paternal Grandmother No Known Problems Paternal Grandfather Social History Tobacco Use Smoking status: Never Smokeless tobacco: Never Vaping Use Vaping status: Never Used Substance Use Topics Alcohol use: Never Drug use: Never REVIEW OF SYSTEMS GENERAL: No weight loss, malaise or fevers/chills HEENT: Negative for frequent or significant headaches, No changes in hearing or vision. NECK: Negative for lumps, goiter, pain and significant neck swelling RESPIRATORY: + SOB CARDIOVASCULAR: Negative for chest pain, leg swelling, orthopnea, or palpitations GI: No nausea, vomiting, or diarrhea/constipation. No hematochezia/melena. No heartburn or reflux symptoms. : No history of dysuria, frequency or incontinence MUSCULOSKELETAL: Negative for joint pain or swelling. SKIN: Negative for lesions, rash, and itching ENDOCRINE: Negative for cold or heat intolerance, polyuria, polydipsia and goiter NEURO: No history of headaches, syncope, paralysis, seizures or tremors MOOD: Negative for depression, anxiety, or suicidal ideation. EXAM: BP 138/90 (BP Site: Right Arm, BP Position: Sitting) Pulse 76 Resp 18 Wt 89.9 kg (198 lb 3.1 oz) SpO2 96% BMI 32.98 kg/m? PHYSICAL EXAM: General Appearance: Well appearing, alert, in no acute distress, well-hydrated, well nourished.. Skin: Skin color, texture, turgor normal, no suspicious rashes or lesions. Head: Normocephalic, no masses, lesions, tenderness or abnormalities. Eyes: Anicteric sclera. Extraocular movements are intact. Lungs: Lungs clear to auscultation. No wheezing, rhonchi, rales.. Heart: RRR without murmur (more content not included)...[facility]10-10-2024 Telephone encounter Note* Telephone Encounter - Zac Linton MD - 02/13/2024 11:46 AM EDT OK to refill as ordered Zac Linton MD [facility]10-10-2024 Miscellaneous Notes* Telephone Encounter - Zac Linton MD - 02/13/2024 11:46 AM EDT OK to refill as ordered Zac Linton MD * Telephone Encounter - Alexandra Florentino LPN - 02/13/2024 11:30 AM EDT Pt also scheduled for a hospital FU 02-14-24. Hospital records printed and given to 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's office for apt. Alexandra Florentino LPN * Telephone Encounter - Alexandra Florentino LPN - 02/13/2024 11:16 AM EDT Pt is requesting all her medications be switched to mail order [facility]. Pt was d/c from [facility] on 02-07-24. Pt was put on Eliquis. Pt requesting prescription be sent to [facility] also for 90 days at a time. The patient has been identified by name and date of : Yes Caregiver verified no other encounters exist for this prescription request: Yes Caregiver confirmed with patient/requestor that no other refills are due, in the near future, with this provider at this time: Yes The last office visit in the department: 01/02/2024 Does the patient have a future office visit with this provider/department: Yes 02/14/2024 Requested Prescriptions Pending Prescriptions Disp Refills enalapril (VASOTEC) 20 mg tablet 90 tablet 3 Sig: Take 1 tablet by mouth once daily. ergocalciferol 50,000 unit capsule (VITAMIN D2, DRISDOL) 12 capsule 3 Sig: Take 1 capsule by mouth one time a week. Fenofibrate (LOFIBRA) 160 mg tablet 90 tablet 3 Sig: Take 1 tablet by mouth once daily. furosemide (LASIX) 20 mg tablet 90 tablet 0 Sig: Take 1 tablet by mouth once daily. levothyroxine (SYNTHROID) 175 mcg tablet 90 tablet 1 Sig: Take 1 tablet by mouth once daily. Take on empty stomach. For Thyroid. metoprolol tartrate, short acting, (LOPRESSOR) 25 mg tablet 180 tablet 1 Sig: Take 1 tablet by mouth two times a day. sertraline (ZOLOFT) 100 mg tablet 90 tablet 3 Sig: Take 1 tablet by mouth once daily. apixaban (ELIQUIS) 5 mg tab(s) 180 tablet 1 Sig: Take 1 tablet by mouth two times a day. Alexandra Florentino LPN February 13, 2024 11:28 AM documented in this encounterOhio [facility]10-10-2024 Telephone encounter Note * Telephone Encounter - Alexandra Florentino LPN - 02/13/2024 11:30 AM EDT Pt also scheduled for a hospital FU 02-14-24. Hospital records printed and given to 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's office for apt. Alexandra Florentino LPN [facility]10-10-[facility] Telephone encounter Note* Telephone Encounter - Alexandra Florentino LPN - 02/13/2024 11:16 AM EDT Pt is requesting all her medications be switched to mail order [facility]. Pt was d/c from [facility] on 02-07-24. Pt was put on Eliquis. Pt requesting prescription be sent to [facility] also for 90 days at a time. The patient has been identified by name and date of : Yes Caregiver verified no other encounters exist for this prescription request: Yes Caregiver confirmed with patient/requestor that no other refills are due, in the near future, with this provider at this time: Yes The last office visit in the department: 01/02/2024 Does the patient have a future office visit with this provider/department: Yes 02/14/2024 Requested Prescriptions Pending Prescriptions Disp Refills enalapril (VASOTEC) 20 mg tablet 90 tablet 3 Sig: Take 1 tablet by mouth once daily. ergocalciferol 50,000 unit capsule (VITAMIN D2, DRISDOL) 12 capsule 3 Sig: Take 1 capsule by mouth one time a week. Fenofibrate (LOFIBRA) 160 mg tablet 90 tablet 3 Sig: Take 1 tablet by mouth once daily. furosemide (LASIX) 20 mg tablet 90 tablet 0 Sig: Take 1 tablet by mouth once daily. levothyroxine (SYNTHROID) 175 mcg tablet 90 tablet 1 Sig: Take 1 tablet by mouth once daily. Take on empty stomach. For Thyroid. metoprolol tartrate, short acting, (LOPRESSOR) 25 mg tablet 180 tablet 1 Sig: Take 1 tablet by mouth two times a day. sertraline (ZOLOFT) 100 mg tablet 90 tablet 3 Sig: Take 1 tablet by mouth once daily. apixaban (ELIQUIS) 5 mg tab(s) 180 tablet 1 Sig: Take 1 tablet by mouth two times a day. Alexandra Florentino LPN February 13, 2024 11:28 AM [facility]10-10-2024 Telephone encounter Note* Telephone Encounter - Zac Linton MD - 02/13/2024 11:09 AM EDT Noted Zac Linton MD [facility]10-10-2024 Miscellaneous Notes* Telephone Encounter - Zac Linton MD - 02/13/2024 11:09 AM EDT Noted Zac Linton MD * Telephone Encounter - Melissa Castro LPN - 02/12/2024 10:16 AM EDT Deepa from [facility] Home Health calling with OT plan of care, 1 visit weekly for 1 week, then 2 visits weekly for 1 week, then 1 visit weekly for 3 weeks. Working on transfers, fall prevention, home exercise program and ADL's. No need to return call. documented in this encounterOhio [facility]10-09-2024 Telephone encounter Note * Telephone Encounter - Melissa Castro LPN - 02/12/2024 10:16 AM EDT Deepa from [facility] Home Health calling with OT plan of care, 1 visit weekly for 1 week, then 2 visits weekly for 1 week, then 1 visit weekly for 3 weeks. Working on transfers, fall prevention, home exercise program and ADL's. No need to return call. [facility]10-04-2024 Note* Addendum Note - Cinthya Syed MA - 02/07/2024 4:15 PM EDTAddended by: CINTHYA SYED on: 02/07/2024 04:15 PM Modules accepted: Orders [facility]10-04-2024 Miscellaneous Notes* Addendum Note - Cinthya Syed MA - 02/07/2024 4:15 PM EDTAddended by: CINTHYA SYED on: 02/07/2024 04:15 PM Modules accepted: Orders * Telephone Encounter - Cintyha Syed MA - 02/07/2024 4:12 PM EDT Detailed message left on Ledy's identified and confidential vm. Cinthya Syed MA * Telephone Encounter - Zac Linton MD - 02/07/2024 4:00 PM EDT OK for HH Nursing plan of care as outlined OK for orders for PT and OT OK to add those three meds to her med list Zac Linton MD * Telephone Encounter - Guillermina Ordonez RN - 02/07/2024 10:55 AM EDT Ledy with [facility] HH Nursing calling with the following: HH Nursing plan of care will be: 1 time per week for 1 week then 2 times per week for 3 weeks for disease and medication mgmt, if provider agreeable. Asking for orders for PT and OT Home Health. Ledy states patient has recurrent falls and difficulty sleeping in her bed and feels therapy will benefit her. Reports 3 medications that patient is taking that is not listed on pt's current med list: Preservision eye supplement, beet root (for blood pressure mgmt) and Nystatin topical cream as needed to abdominal folds. Please call Ledy back with approval of orders at [phone]. Guillermina Ordonez RN documented in this encounterOhio [facility]10-04-2024 Telephone encounter Note * Telephone Encounter - Cinthya Syed MA - 02/07/2024 4:12 PM EDT Detailed message left on Ledy's identified and confidential vm. Cinthya Syed MA [facility]10-04-2024 Telephone encounter Note* Telephone Encounter - Zac Linton MD - 02/07/2024 4:00 PM EDT OK for HH Nursing plan of care as outlined OK for orders for PT and OT OK to add those three meds to her med list Zac Linton MD [facility]10-04-2024 Telephone encounter Note* Telephone Encounter - Guillermina Ordonez RN - 02/07/2024 10:55 AM EDT Ledy with [facility] HH Nursing calling with the following: HH Nursing plan of care will be: 1 time per week for 1 week then 2 times per week for 3 weeks for disease and medication mgmt, if provider agreeable. Asking for orders for PT and OT Home Health. Ledy states patient has recurrent falls and difficulty sleeping in her bed and feels therapy will benefit her. Reports 3 medications that patient is taking that is not listed on pt's current med list: Preservision eye supplement, beet root (for blood pressure mgmt) and Nystatin topical cream as needed to abdominal folds. Please call Ledy roman with approval of orders at [phone]. Guillermina Ordonez RN [facility]10-03-2024 [facility] Medical Records Department [address] [place] [address] Discharge Summary 02/06/24 1320 MR#: [id number] Acct: [id number] Name: TARIK BAKER Rep #: [id number] : 1945 78 From: Min Carranza MD PCP: Dr. Zac Linton MD Status:ADM IN Location: [facility] [place] [address] Providers Date of Admission: 02/04/24 Date of Discharge: 02/06/24 Primary Care Physician: Dr. Zac Linton MD Consultations 02/04/24 16:48 Consult: Vascular Surgery Routine Consulting Provider: Noah Singh Reason for Consult: bilateral PE EMERGENT Consult: No MD Notified: Yes Date Notified: 02/04/24 Time Notified: 17:00 Method of Notification: ED Physician Initiated 02/04/24 16:55 Consult: Friction Welding Machine Operator / Pulmonary Medicine Routine Consulting Provider: Intensivists/Pulmonary Med Reason for Consult: PE EMERGENT Consult: No MD Notified: Yes Date Notified: 02/05/24 Time Notified: 07:39 Method of Notification: Text Reason For Visit: SOB Diagnosis Discharge Diagnosis (1) Bilateral pulmonary embolism: Status: Acute Code(s): I26.99 - Other pulmonary embolism without acute cor pulmonale Plan Patient is a 78-year-old female who presented to [facility] ED on 02/04/2024 with worsening shortness of breath. Hypoxia pulse ox 82% on room air. Currently on 4 L of oxygen. Increased falls recently 1. Bilateral diffuse extensive pulmonary emboli with suspected DVT: ??? Admit under inpatient status to PCU. Vascular surgery consulted. CTA chest showed extensive bilateral pulmonary emboli with concern for right heart strain. It is reported as a large filling defect in distal right and left main pulmonary arteries with extension into all lobar, multiple segmental and subsegmental branches. Mild right chamber of heart enlargement. No pericardial effusion. New hypoxia requiring 4 L nasal cannula on admit. Bilateral LE swelling noted, worse on left. EKG with no ischemic changes noted. Will treat with heparin drip for now. 02/04: Patient is getting echo. Complain her left leg was more swollen than right for years. LE duplex ultrasound ordered. Patient being evaluated by vascular surgeon. Friction Welding Machine Operator also consulted. 02/05: 2D echo was done. Reported mild TR PASP 70 mmHg. Normal RV size and systolic function. EF 65%. Lower extremity duplex ultrasound shows acute DVT in right tibioperoneal trunk. IV heparin drip discontinued and started on Eliquis 10 mg p.o. twice daily for 1 week till 02/12/2024 and then 5 mg twice daily to continue for 6 months. Advised follow-up with Dr. Anne pulmonary clinic and Dr. Singh in vascular clinic in 1 month. Follow-up snowsport instructor after 6-month that is after completion of Eliquis treatment. Patient pulse ox 96% on 2 L of oxygen. Patient had mild hypoxia getting better. Home oxygen qualification test ordered. 2. Acute debility ??? PT/OT/case management consulted. Patient lives at home with . Reports decent functional status prior to 4 months ago when she had a fall; has not been very mobile since then. Need evaluation for SNF versus home with home health care on discharge. 02/05: Patient states he fell down and has poor balance. Depending on PT session might need walker or cane. 3. CKD stage III ??? Creatinine 1.30 on admit, baseline 1.2-1.3. Did receive IV contrast with CTA chest but given PE with concern for right heart strain, 02/04: BUN/creatinine improving. BUN/creatinine 33/1.13. 4. Mild chronic anemia ??? Hemoglobin 11.8 on admit, baseline around 12. Monitor daily CBC. 02/04: No acute change in CBC. 02/05: No acute bleeding. Chronic medical conditions: ??? Obesity: BMI 35 on admit. Complicates hospital course, care and prognosis. ??? Type 2 diabetes mellitus with hyperglycemia: Home regimen of insulin NPH 25 units twice daily. Blood glucose 247 on admit. A1c ordered. Will treat with NPH 18 units twice daily and sliding scale insulin with meals for now, adjust as needed. 02/05: Glucose is controlled. Continue home dose of insulin. A1c 7.1% ??? Paroxysmal A-fib, hypertension, hyperlipidemia: Sinus tachycardia noted on admission. Is on aspirin 325 mg at home, not on anticoagulation due to fall risk. Will hold home Lopressor and enalapril for now. Low-dose Lasix was started for lower extremity swelling about 1 month ago, will hold this as well. Continue home fenofibrate. ??? Hypothyroidism: Continue home Synthroid. ??? Anxiety/depression: Stable. Continue home sertraline. DVT prophylaxis: Not indicated, on heparin drip CODE STATUS: DNR CCA, DNI. Microbiology Past 72 Hours 02/04/24 11:49 Mucosa - Nasopharyngeal SARS-CoV-2, Influenza RSV (PCR) - Final Laboratory Results 02/05/24 10:59: POC Glucose 122 H 02/05/24 16:51: POC Glucose 202 H 02/05/24 18:35: APTT 60.8 H 02/05/24 21:15: POC Glucose 178 H 02/06/24 05:30: APTT 54.2 H 02/05 (more content not included)...[facility]10-03-2024 Telephone encounter Note* Telephone Encounter - Cinthya Syed MA - 02/06/2024 11:48 AM EDT Padmini notified and voiced understanding. Cinthya Syed MA [facility]10-03-2024 Miscellaneous Notes* Telephone Encounter - Cinthya Syed MA - 02/06/2024 11:48 AM EDT Padmini notified and voiced understanding. Cinthya Syed MA * Telephone Encounter - Zac Linton MD - 02/06/2024 8:40 AM EDT I agree and will follow Zac Linton MD * Telephone Encounter - Rachele Alan LPN - 02/05/2024 1:42 PM EDT Padmini calling from [facility], patient is being discharged tomorrow with home O2. They would like to see patient for a couple of weeks. Asking if PCP agrees and will follow. Please advise. [facility] Telephone encounter Note * Telephone Encounter - Zac Linton MD - 02/06/2024 8:40 AM EDT I agree and will follow Zac Linton MD [facility]10-02-2024 Telephone encounter Note* Telephone Encounter - Rachele Alan LPN - 02/05/2024 1:42 PM EDT Padmini calling from [facility], patient is being discharged tomorrow with home O2. They would like to see patient for a couple of weeks. Asking if PCP agrees and will follow. Please advise. [facility]10-01-2024 Telephone encounter Note* Telephone Encounter - Ivonne Dolan RN - 02/04/2024 10:06 AM EDT Patient and reports patient has had 3 episodes of severe SOB this morning with irregular heart rhythm. Reports has a-fib, and cancelled first appt today with [facility], due to symptoms. Reports patient is not taking a blood thinner and was probably going to be prescribed that today at [facility]. When patient got up to walk, while on phone with this nurse, symptoms returned and stated felt like she would pass out. Patient unable to walk to car to go to ER. Advised to call 911. agreeable. Reason for Disposition SEVERE difficulty breathing (e.g., struggling for each breath, speaks in single words) Answer Assessment - Initial Assessment Questions 1. RESPIRATORY STATUS: Shortness of breath worse today. Since 8:30 am has had 3 episodes of SOB that lasted about 15 min. Has A-fib. Feels heart racing. gave her 2 adult aspirins. Reports when patient gets up to walk it triggers the severe SOB and irregular heart rhythm and patient stated she felt like she would pass out. 2. ONSET: Has had SOB for a while but not like today. 3. PATTERN Comes and goes. Feels ok right now. Once up walking triggers symptoms all over again. 4. SEVERITY: Severe during 3 episodes. Patient reports she put her head b/t her legs for 15 min andit got better. 5. RECURRENT SYMPTOM: Has had SOB for a while but not as bad as it was today. Patient states it felt like an anxiety attack. 6. CARDIAC HISTORY: Hx A-fib. Hx MO 2 times. Had appt with [facility] today but cancelled it due to SOB 7. LUNG HISTORY: No hx asthma or emphysema or COPD 8. CAUSE: Could be A-fib. Patient thinks it could be a bad panic attack. Takes zoloft. 9. OTHER SYMPTOMS: Had dizziness with SOB, does have a cold. No CP. When stands up to walk, s/s return and feels like she will pass out. 10. O2 SATURATION MONITOR: No 11. : No 12. TRAVEL: No exposures. No travel. Protocols used: Breathing [id number] [facility]10-01-2024 Miscellaneous Notes* Telephone Encounter - Ivonne Dolan RN - 02/04/2024 10:06 AM EDT Patient and reports patient has had 3 episodes of severe SOB this morning with irregular heart rhythm. Reports has a-fib, and cancelled first appt today with [facility], due to symptoms. Reports patient is not taking a blood thinner and was probably going to be prescribed that today at [facility]. When patient got up to walk, while on phone with this nurse, symptoms returned and stated felt like she would pass out. Patient unable to walk to car to go to ER. Advised to call 911. agreeable. Reason for Disposition SEVERE difficulty breathing (e.g., struggling for each breath, speaks in single words) Answer Assessment - Initial Assessment Questions 1. RESPIRATORY STATUS: Shortness of breath worse today. Since 8:30 am has had 3 episodes of SOB that lasted about 15 min. Has A-fib. Feels heart racing. gave her 2 adult aspirins. Reports when patient gets up to walk it triggers the severe SOB and irregular heart rhythm and patient stated she felt like she would pass out. 2. ONSET: Has had SOB for a while but not like today. 3. PATTERN Comes and goes. Feels ok right now. Once up walking triggers symptoms all over again. 4. SEVERITY: Severe during 3 episodes. Patient reports she put her head b/t her legs for 15 min andit got better. 5. RECURRENT SYMPTOM: Has had SOB for a while but not as bad as it was today. Patient states it felt like an anxiety attack. 6. CARDIAC HISTORY: Hx A-fib. Hx MO 2 times. Had appt with [facility] today but cancelled it due to SOB 7. LUNG HISTORY: No hx asthma or emphysema or COPD 8. CAUSE: Could be A-fib. Patient thinks it could be a bad panic attack. Takes zoloft. 9. OTHER SYMPTOMS: Had dizziness with SOB, does have a cold. No CP. When stands up to walk, s/s return and feels like she will pass out. 10. O2 SATURATION MONITOR: No 11. : No 12. TRAVEL: No exposures. No travel. Protocols used: Breathing [id number] documented in this encounterOhio [facility]09-27-[facility]24 Telephone encounter Note * Telephone Encounter - Zac Linton MD - 01/31/2024 3:26 PM EDT OK to refill as ordered Zac Linton MD [facility]09-27-2024 Miscellaneous Notes* Telephone Encounter - Zac Linton MD - 01/31/2024 3:26 PM EDT OK to refill as ordered Zca Linton MD * Telephone Encounter - Zainab Love - 01/31/2024 2:37 PM EDT Prescription Refill Information The patient has been identified by name and date of : Yes Caregiver verified no other encounters exist for this prescription request: Yes Caregiver confirmed with patient/requestor that no other refills are due, in the near future, with this provider at this time: Yes NOTE: patient is completely out of this medication, can this please be filled today? The last office visit in the department: 01/02/2024 Does the patient have a future office visit with this provider/department: Yes 06/11/24 Requested Prescriptions Pending Prescriptions Disp Refills sertraline (ZOLOFT) 100 mg tablet 90 tablet 3 Sig: Take 1 tablet by mouth once daily. Zainab Carrasco January 31, 2024 2:37 PM documented in this encounterOhio [facility]09-27-2024 Telephone encounter Note * Telephone Encounter - Zainab Love - 01/31/2024 2:37 PM EDT Prescription Refill Information The patient has been identified by name and date of : Yes Caregiver verified no other encounters exist for this prescription request: Yes Caregiver confirmed with patient/requestor that no other refills are due, in the near future, with this provider at this time: Yes NOTE: patient is completely out of this medication, can this please be filled today? The last office visit in the department: 01/02/2024 Does the patient have a future office visit with this provider/department: Yes 06/11/24 Requested Prescriptions Pending Prescriptions Disp Refills sertraline (ZOLOFT) 100 mg tablet 90 tablet 3 Sig: Take 1 tablet by mouth once daily. Zainab Carrasco January 31, 2024 2:37 PM [facility]09-18-2024 Telephone encounter Note* Telephone Encounter - Lizzy Cooney LPN - 01/22/2024 6:35 PM EDT Patient notified of results, verbalizes understanding of instructions. Pt is doing better on the Metoprolol. Lizzy Cooney LPN [facility]09-18-2024 Miscellaneous Notes* Telephone Encounter - Lizzy Cooney LPN - 01/22/2024 6:35 PM EDT Patient notified of results, verbalizes understanding of instructions. Pt is doing better on the Metoprolol. Lizzy Cooney LPN * Telephone Encounter - 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 APRN.CNP - 01/22/2024 6:30 PM EDT Can you please call the patient and and let them know that I reviewed her echocardiogram. Echo was relatively normal, PVCs were noted during testing. Ejection fraction was 58%. There was novalve abnormalities noted. I would like her to keep upcoming appointment with cardiology. Can you ask how she has been doing since adding on metoprolol? Thank you 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 APRN.CNP documented in this encounterOhio [facility]09-18-2024 Telephone encounter Note * Telephone Encounter - 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 APRN.CNP - 01/22/2024 6:30 PM EDT Can you please call the patient and and let them know that I reviewed her echocardiogram. Echo was relatively normal, PVCs were noted during testing. Ejection fraction was 58%. There was novalve abnormalities noted. I would like her to keep upcoming appointment with cardiology. Can you ask how she has been doing since adding on metoprolol? Thank you 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 APRN.CNP [facility]09-04-2024 Telephone encounter Note* Telephone Encounter - Lizzy Cooney LPN - 01/08/2024 9:41 AM EDT Patient notified of response to message, verbalizes understanding of instructions. Pt cardiology appt is 02/15/24 Lizzy Cooney LPN [facility]09-04-2024 Miscellaneous Notes* Telephone Encounter - Lizzy Cooney LPN - 01/08/2024 9:41 AM EDT Patient notified of response to message, verbalizes understanding of instructions. Pt cardiology appt is 02/15/24 Lizzy Cooney LPN * Telephone Encounter - 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 APRN.CNP - 01/07/2024 4:25 PM EDT Can you please call the patient and back and let them know if it is possible to get her seen sooner with her income tax advisor I would try to do so. 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 APRN.BAILEY * Telephone Encounter - Jocy Ceja RN - 01/07/2024 9:37 AM EDT Pts called and is notified of providers results and instructions. He voices understanding. They have the Echo set up for 01/05/24, and a Cardiology appointment with [facility] Cardiology in February. Itold Pt I would have provider call back if she thought they needed to try an move Cardiology appointment up. Jocy Ceja, [place] * Telephone Encounter - 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 APRN.CNP - 01/03/2024 5:01 PM EDT Can you please call the patient and and let them know that I reviewed her lab results. Thyroid and magnesium level were normal Mild decreased kidney function. I would recommend that she stay hydrated and watch salt/processed foods in the diet. BNP was elevated which can be indicative of congestive heart failure. I would like her to complete echocardiogram. Continue with the metoprolol and Lasix that was prescribed during her visit. I wouldlike her to have a consult with cardiology. Please let me know if they have any additional questions. Thank you. 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 APRN.CNP documented in this encounterOhio [facility]09-03-2024 Telephone encounter Note * Telephone Encounter - 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 APRN.CNP - 01/07/2024 4:25 PM EDT Can you please call the patient and back and let them know if it is possible to get her seen sooner with her income tax advisor I would try to do so. 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 APRN.CNP [facility]09-03-2024 Telephone encounter Note* Telephone Encounter - Jocy Ceja RN - 01/07/2024 9:37 AM EDT Pts called and is notified of providers results and instructions. He voices understanding. They have the Echo set up for 01/05/24, and a Cardiology appointment with [facility] Cardiology in February. Itold Pt I would have provider call back if she thought they needed to try an move Cardiology appointment up. Jocy Ceja RN [facility]08-30-2024 Telephone encounter Note* Telephone Encounter - 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 APRN.CNP - 01/03/2024 5:01 PM EDT Can you please call the patient and and let them know that I reviewed her lab results. Thyroid and magnesium level were normal Mild decreased kidney function. I would recommend that she stay hydrated and watch salt/processed foods in the diet. BNP was elevated which can be indicative of congestive heart failure. I would like her to complete echocardiogram. Continue with the metoprolol and Lasix that was prescribed during her visit. I wouldlike her to have a consult with cardiology. Please let me know if they have any additional questions. Thank you. 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 APRN.CNP [facility]08-29-2024 Instructions* Patient Instructions* 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 APRN.CNP - 01/02/2024 2:59 PM EDT Get labs completed Complete Echo Add on metoprolol 25 mm twice daily Continue with normal medications May use Lasix 20 mg daily for 3-5 days to help with leg swelling. If needing this daily get lab checked in 2 weeks to evaluate potassium Recommend consult with Cardiology ( [facility]) Any worsening symptoms go to ER Follow up in 1-2 weeks [facility] [phone] documented in this encounterOhio State University [facility]08-29-2024 History of Present illness Narrative* 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 APRN.CNP - 01/02/2024 2:42 PM EDT This is a 78 year old female who presents today with: Patient presents with: Leg Edema HISTORY OF PRESENT ILLNESS: Tarik Baker is a 78 year old female. Patient presents with: Leg Edema Here in the office for lower leg swelling and SOB. SOB with ambulation. Using a walker. Palpitations, feels like a fluttering. Use to follow with Cardiology at [facility]. Has not been seen in several years. History of MO in the past. Currently taking aspirin 325 mg daily, Vasotec 20 mg daily. Denies chest pain or dizziness. Lipids: Taking fenofibrate at 160 mg daily Earlier this month synthroid increased 175 mcg daily, labs end of next month. Stress Test: 2020 CONCLUSION: The patient completed Lexiscan 0.4 mg in 10 seconds. EKG was equivocal. Hemodynamic response was normal. Await nuclear report Echo: 2020 CONCLUSION: Echocardiogram demonstrates normal wall thickness. Normal wall motion. Ejection fraction 65%. Diastolic dysfunction is seen. Valvular function appears to be normal. PAST MEDICAL HISTORY: : PAST MEDICAL HISTORY No date: Diabetes (HCC) No date: Essential hypertension 12/2020: History of cardiovascular stress test Comment: ef 60, no ischemia PAST SURGICAL HISTORY No date: TUBAL LIGATION HX ALLERGIES Prednisone MEDICATIONS Current Outpatient Medications Medication Sig ergocalciferol 50,000 unit capsule (VITAMIN D2, DRISDOL) Take 1 capsule by mouth one time a week. levothyroxine (SYNTHROID) 175 mcg tablet Take 1 tablet by mouth once daily. Take on empty stomach. For Thyroid. enalapril (VASOTEC) 20 mg tablet Take 1 tablet by mouth once daily. Fenofibrate (LOFIBRA) 160 mg tablet Take 1 tablet by mouth once daily. sertraline (ZOLOFT) 100 mg tablet Take 1 tablet by mouth once daily. insulin NPH injection (HumuLIN N,NovoLIN N) 24 units in the am and 24 units in the pm. aspirin, enteric coated (ASPIRIN, ENTERIC COATED) 325 mg EC tablet Take 1 tablet by mouth once daily. Take with food. multivitamin with minerals (MULTIPLE VITAMINS 55 PLUS ORAL) Take 1 capsule by mouth once daily. Ascorbic Acid (VITAMIN C) 100 mg tablet ZINC ORAL Take by mouth. No current facility-administered medications for this visit. FAMILY HISTORY Problem Relation Age of Onset No Known Problems Mother No Known Problems Father No Known Problems Maternal Grandmother No Known Problems Maternal Grandfather No Known Problems Paternal Grandmother No Known Problems Paternal Grandfather Social History Tobacco Use Smoking status: Never Smokeless tobacco: Never Vaping Use Vaping status: Never Used Substance Use Topics Alcohol use: Never Drug use: Never REVIEW OF SYSTEMS GENERAL: No weight loss, malaise or fevers/chills HEENT: Negative for frequent or significant headaches, No changes in hearing or vision. NECK: Negative for lumps, goiter, pain and significant neck swelling RESPIRATORY: Negative for cough, hemoptysis, wheezing, dyspnea or shortness of breath CARDIOVASCULAR: + Palpitations, lower leg swelling GI: No nausea, vomiting, or diarrhea/constipation. No hematochezia/melena. No heartburn or reflux symptoms. : No history of dysuria, frequency or incontinence MUSCULOSKELETAL: Negative for joint pain or swelling. SKIN: Negative for lesions, rash, and itching ENDOCRINE: Negative for cold or heat intolerance, polyuria, polydipsia and goiter NEURO: No history of headaches, syncope, paralysis, seizures or tremors MOOD: Negative for depression, anxiety, or suicidal ideation. EXAM: BP 159/69 Pulse 103 Resp 18 SpO2 97% PHYSICAL EXAM: General Appearance: Well appearing, alert, in no acute distress, well-hydrated, well nourished. Skin: Skin color, texture, turgor normal, no suspicious rashes or lesions. Head: Normocephalic, no masses, lesions, tenderness or abnormalities. Eyes: Anicteric sclera. Extraocular movements are intact. Lungs: Lungs clear to auscultation. No wheezing, rhonchi, rales. Heart: Positive findings: irregular rhythm. Extremities: + 3 pitting edema noted lower legs bilaterally. No erythema.. Peripheral Pulses: Normal, Capillary refill <2secs, strong peripheral pulses, Pulses palpable. Neurologic: Gait normal. Sensation grossly intact. ECG: Sinus tachycardia with frequent PVCs. Rate 101. ASSESSMENT/PLAN: 1. Palpitations - ICD9: 785.1, ICD10: R00.2 (primary diagnosis) - Get labs and Echo completed - Re-establish care with Cardiology - Red flag symptoms given to patient and , they both verbalized understanding when to seek care. - CONSULT TO CARDIOLOGY - ECHO - PERFLUTREN LIPID MICROSPHERES 1.1 MG/ML INJECTION IN NS 10 ML - SODIUM CHLORIDE 0.9 % (FLUSH) INJECTION SYRINGE - THYROID STIMULATING HORMONE - MAGNESIUM 2. PVC (premature ventricular contraction) - ICD9: 427.69, ICD10: I49.3 - Same plan as #1. 3. SOB (shortness of breath) - ICD9: 786.05, ICD10: R06.02 - Same plan as #1 4. Leg swelling - ICD9: 729.81, ICD10: M79.89 - Add on Lasix 20 mg daily - Get repeat labs in 2 weeks to check potassium level - LASIX - NT PRO BNP - CONSULT TO CARDIOLOGY - ECHO - PERFLUTREN LIPID MICROSPHERES 1.1 MG/ML INJECTION IN NS 10 ML - SODIUM CHLORIDE 0.9 % (FLUSH) INJECTION SYRINGE - MAGNESIUM - COMPREHENSIVE METABOLIC PANEL 5. Primary hypertension - ICD9: 401.9, ICD10: I10 - Uncontrolled - Continue current medications - Start metoprolol tartrate - Recommend home blood pressure monitoring, to bring results to next visit - Encouraged sodium restriction, DASH or Mediterranean diet - Recommend regular aerobic exercise - METOPROLOL TARTRATE 25 MG TABLET Follow-up in 1 to 2 weeks or sooner pending test results. Discussed treatment plan and patient voices understanding. Patient's questions answered appropriately. Medications and potential side effects were discussed and patient voices understanding. 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 APRN.REELING MACHINE OPERATOR This note was partially generated using [employer] voice recognition system. Note was reviewed for accuracy. There may be minor misspellings or grammar miscues with Dragon voice recognition. Medical Decision Making: Problems: Moderate: New problem with uncertain prognosis Data: Unique source(s) for external note(s) reviewed: 3+ Unique test result(s) reviewed: 3+ Unique test(s) ordered: 3+ Assessment requiring an independent historian(s) Independent interpretation of test from other physician/QHCP Risk: Moderate: Moderate risk from testing/treatment and Drug management Medical Decision Making Level: 4 - Moderate I spent a total of 50 minutes on the date of the service which included preparing to see the patient, [id number] patient care, completing clinical documentation, obtaining and/or reviewing separately obtained history, performing a medically appropriate examination, counseling and educating the pat ient/family/caregiver, ordering medications, tests, or procedures, communicating with other HCPs (not separately reported), independently interpreting results (not separately reported), and care coordination (not separately reported). documented in this encounterOhio [facility]08-29-2024 History of Present illness Narrative* Romeo Mendoza MD - 01/02/2024 9:53 AM EDT Patient presents with: Edema: Bilateral lower legs, L worse x4 weeks HPI: Presents to the [facility] for leg edema of about 4 weeks, also says she has had the issue since before falling and ED evaluation in October. The left leg is swollen, but now also notes right leg edema. Positive symptoms: intermittent dizziness, edema, leg pain, leg injury Denies chest pain, shortness of breath, palpitations. Home BP checks: 140s systolic. Medication compliance: yes, she says enalapril? was increased (no record). Does not follow with cardiology Denies a history of blood clots. PAST MEDICAL HISTORY No date: Diabetes (HCC) No date: Essential hypertension 12/2020: History of cardiovascular stress test Comment: ef 60, no ischemia PAST SURGICAL HISTORY No date: TUBAL LIGATION HX MEDICATIONS: ergocalciferol 50,000 unit capsule (VITAMIN D2, DRISDOL) Take 1 capsule by mouth one time a week. levothyroxine (SYNTHROID) 175 mcg tablet Take 1 tablet by mouth once daily. Take on empty stomach. For Thyroid. enalapril (VASOTEC) 20 mg tablet Take 1 tablet by mouth once daily. Fenofibrate (LOFIBRA) 160 mg tablet Take 1 tablet by mouth once daily. sertraline (ZOLOFT) 100 mg tablet Take 1 tablet by mouth once daily. insulin NPH injection (HumuLIN N,NovoLIN N) 24 units in the am and 24 units in the pm. aspirin, enteric coated (ASPIRIN, ENTERIC COATED) 325 mg EC tablet Take 1 tablet by mouth once daily. Take with food. multivitamin with minerals (MULTIPLE VITAMINS 55 PLUS ORAL) Take 1 capsule by mouth once daily. Ascorbic Acid (VITAMIN C) 100 mg tablet ZINC ORAL Take by mouth. ALLERGIES: ALLERGIES Allergen Reactions Prednisone Other: See Comments Sugar went over 900 VITALS: BP 187/75 Pulse 84 Temp 36.5 C (97.7 F) Resp 18 Wt 96.1 kg (211 lb 13.8 oz) SpO2 97% BMI 35.26 kg/m Last 4 Encounter Wt Readings: Date: Wt: 01/02/2024 96.1 kg (211 lb 13.8 oz) 02/21/2023 97 kg (213 lb 12.8 oz) 11/08/2022 93.9 kg (207 lb) 07/05/2022 92.1 kg (203 lb) PHYSICAL EXAM: GEN: pleasant, no acute distress, alert, accompanied by her who assists with the history HEENT: PERRL, EOMI, MMM NECK: supple, no lymphadenopathy, no thyromegaly HEART: regular rate, irregularly irregular rhythm, no murmurs LUNGS: clear to auscultation, no wheezes or crackles, no increased WOB EXT: no clubbing, no cyanosis, no erythema, no induration, 2-3+ pitting dependent edema of both lower legs ASSESSMENT/PLAN: 1. Bilateral leg edema - ICD9: 782.3, ICD10: R60.0 (primary diagnosis) 2. Cardiac arrhythmia, unspecified cardiac arrhythmia type - ICD9: 427.9, ICD10: I49.9 - ECG COMPLETE ordered but patient was not comfortable attempting to get on the exam table. She had atrial fibrillation with PVC noted on echo in 12/07/2020. She has also had ECGs with sinus rhythm and PVCs. She is not currently anticoagulated (other than aspirin). Patient transferred to primary care schedule for further management of possible atrial fibrillationand edema. Romeo Mendoza MD documented [facility] this encounter[facility] Telephone encounter Note * Telephone Encounter - Jyothi Wharton - 12/20/2023 8:40 AM EDT Prescription Refill Information Patient needs this ANN having issues. The patient has been identified by name and date of : Yes Caregiver verified no other encounters exist for this prescription request: Yes Caregiver confirmed with patient/requestor that no other refills are due, in the near future, with this provider at this time: Yes The last office visit in the department: 11/19/23 Does the patient have a future office visit with this provider/department: Yes Requested Prescriptions Pending Prescriptions Disp Refills ciprofloxacin HCl (CIPRO) 500 mg tablet 14 tablet 0 Sig: Take 1 tablet by mouth two times a day for 7 days. Jyothi Chawla December 20, 2023 8:42 AM [facility]08-16-2024 Miscellaneous Notes* Telephone Encounter - Jyothi Wharton - 12/20/2023 8:40 AM EDT Prescription Refill Information Patient needs this ANN having issues. The patient has been identified by name and date of : Yes Caregiver verified no other encounters exist for this prescription request: Yes Caregiver confirmed with patient/requestor that no other refills are due, in the near future, with this provider at this time: Yes The last office visit in the department: 11/19/23 Does the patient have a future office visit with this provider/department: Yes Requested Prescriptions Pending Prescriptions Disp Refills ciprofloxacin HCl (CIPRO) 500 mg tablet 14 tablet 0 Sig: Take 1 tablet by mouth two times a day for 7 days. Jyothi Lopes Pss December 20, 2023 8:42 AM documented in this encounterOhio [facility] Telephone encounter Note * Telephone Encounter - Alexandra Florentino LPN - 12/18/2023 4:49 PM EDT Spoke with pt's spouse and information listed below given. Pt's spouse verbalizes understanding. Alexandra Florentino LPN [facility]08-14-2024 Miscellaneous Notes* Telephone Encounter - Alexandra Florentino LPN - 12/18/2023 4:49 PM EDT Spoke with pt's spouse and information listed below given. Pt's spouse verbalizes understanding. Alexandra Florentino LPN * Telephone Encounter - Lizzy Cooney LPN - 12/18/2023 4:42 PM EDT TC to pt. LM to call office, ask for triage nurse to get results. Lizzy Cooney LPN * Telephone Encounter - 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 APRN.CNP - 12/18/2023 4:15 PM EDT Can you please call the back and let him know that I sent in a new prescription for levothyroxine/Synthroid 175 mcg daily. I would like to get repeat thyroid labs completed in 6 to 8 weeks. She does not have to fast. I sent in a refill for her vitamin D. Thank you. 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 APRN.BAILEY * Telephone Encounter - Nicki Wheeler RN - 12/18/2023 11:03 AM EDT Spouse returns call and results and provider message reviewed. Patient would like to increase Synthroid and needs a refill on Vitamin D. Please call spouse back with directions for synthroid at [phone]. Nicki Wheeler RN * Telephone Encounter - Jocy Ceja RN - 12/18/2023 9:28 AM EDT Called and left a voicemail for the Patient's Sin to call back and ask for a nurse to receive the providers message. Jocy Ceja RN * Telephone Encounter - 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 APRN.CNP - 12/18/2023 7:24 AM EDT Can you please call the patient and let her know that I reviewed her lab results. A1c went from 7.7to to 7.0. I would like her to continue to work on eating a low-carb diet and try to get some form exercise. TSH was mildly elevated. We can either recheck thyroid labs in 6 to 8 weeks or if she is having symptoms we can increase her Synthroid. Please let me know what she prefers. Triglycerides were elevated and HDL was low. I would like her to continue taking her current medication and work on trying to decrease any processed foods in the diet. Vitamin D was low normal, I would like her to continue with the once weekly 50,000 IU. Please verify if she needs a refill. I would like to get repeat labs in 6 months prior to next appointment. Thank you. 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 APRN.BAILEY documented in this encounterOhio [facility] Telephone encounter Note * Telephone Encounter - Lizzy Cooney LPN - 12/18/2023 4:42 PM EDT TC to pt. LM to call office, ask for triage nurse to get results. Lizzy Cooney LPN [facility]08-14-[facility] Telephone encounter Note* Telephone Encounter - 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 APRN.CNP - 12/18/2023 4:15 PM EDT Can you please call the back and let him know that I sent in a new prescription for levothyroxine/Synthroid 175 mcg daily. I would like to get repeat thyroid labs completed in 6 to 8 weeks. She does not have to fast. I sent in a refill for her vitamin D. Thank you. 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 APRN.REELING MACHINE OPERATOR [facility]08-14-[facility]24 Telephone encounter Note* Telephone Encounter - Nicki Wheeler RN - 12/18/2023 11:03 AM EDT Spouse returns call and results and provider message reviewed. Patient would like to increase Synthroid and needs a refill on Vitamin D. Please call spouse back with directions for synthroid at [phone]. Nicki Wheeler RN [facility]08-14-2024 Telephone encounter Note* Telephone Encounter - Jocy Ceja RN - 12/18/2023 9:28 AM EDT Called and left a voicemail for the Patient's Sin to call back and ask for a nurse to receive the providers message. Jocy Ceja RN [facility] Telephone encounter Note* Telephone Encounter - 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 APRN.BAILEY - 12/18/2023 7:24 AM EDT Can you please call the patient and let her know that I reviewed her lab results. A1c went from 7.7to to 7.0. I would like her to continue to work on eating a low-carb diet and try to get some form exercise. TSH was mildly elevated. We can either recheck thyroid labs in 6 to 8 weeks or if she is having symptoms we can increase her Synthroid. Please let me know what she prefers. Triglycerides were elevated and HDL was low. I would like her to continue taking her current medication and work on trying to decrease any processed foods in the diet. Vitamin D was low normal, I would like her to continue with the once weekly 50,000 IU. Please verify if she needs a refill. I would like to get repeat labs in 6 months prior to next appointment. Thank you. 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 APRN.REELING MACHINE OPERATOR [facility]08-13-[facility] Telephone encounter Note* Telephone Encounter - Lizzy Cooney LPN - 12/17/2023 8:35 AM EDT Patient notified of results, verbalizes understanding of instructions. Lizzy Cooney LPN [facility]08-[facility] Miscellaneous Notes* Telephone Encounter - Lizzy Cooney LPN - 12/17/2023 8:35 AM EDT Patient notified of results, verbalizes understanding of instructions. Lizzy Cooney LPN * Telephone Encounter - 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 APRN.CNP - 12/17/2023 8:03 AM EDT Can you please call the patient and let her know that I reviewed her ultrasound results. Ultrasound of bladder and kidneys were normal. I know urine culture did show bacterial infection, the antibiotic that was prescribed should have treated this. Please let me know if she is still having ongoing symptoms or any further questions. Thank you. 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 APRN.CNP documented in this encounterOhio [facility]08-[facility] Telephone encounter Note * Telephone Encounter - 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 APRN.CNP - 12/17/2023 8:03 AM EDT Can you please call the patient and let her know that I reviewed her ultrasound results. Ultrasound of bladder and kidneys were normal. I know urine culture did show bacterial infection, the antibiotic that was prescribed should have treated this. Please let me know if she is still having ongoing symptoms or any further questions. Thank you. 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 APRN.CNP [facility]08-[facility] History of Present illness Narrative* Mena Zaragoza RDMS - 12/16/2023 10:45 AM EDT Radiology Service Progress Note PATIENT NAME: Tarik Baker DATE OF SERVICE: December 16, 2023 TIME: 10:45 AM PATIENT IDENTITY VERIFICATION COMPLETED USING TWO (2) IDENTIFIERS: Name and Date of confirmedby patient verbally. FALL SCREENING: Has the patient had 2 falls in the last year or 1 fall with injury or currently using an Ambulatory Assistive Device (Walker, Cane, Wheelchair, Crutches, etc.)? Yes, Patient High Riskfor Falls What interventions were put in place to prevent falls during this visit? Instructed Patient to Callfor Help if Needed, Offered Assistance with Transfers/Clothing, Instructed Patient to Remain Seated(Not on Exam Table) Until Exam, and Increased Observations by Caregivers PATIENT GENDER DATA: Female. status: : No status: NO. PATIENT RELEVANT IMPLANT DATA REVIEWED: Not Applicable PATIENT PRESENTS WITH AN IMPLANTABLE OR ATTACHED DESULFURIZER HAND: No RADIOLOGY DEPARTMENT: Ultrasound PERIPHERAL IV DATA: Not applicable SIGNED BY: Mena Zaragoza RDMS RVT December 16, 2023 10:45 AM documented in this encounterOhio [facility]08-[facility] Telephone encounter Note * Telephone Encounter - Cinthya Syed MA - 12/13/2023 4:55 PM EDT Pt notified. Cinthya Syed MA [facility]08-09-2024 Miscellaneous Notes* Telephone Encounter - Cinthya Syed MA - 12/13/2023 4:55 PM EDT Pt notified. Cinthya Syed MA * Telephone Encounter - Zac Linton MD - 12/13/2023 4:52 PM EDT Please notify patient that her urine culture did show an infection, but the Cipro should treat it; Let us know if symptoms have not improved. Zac Linton MD documented in this encounterOhio [facility]08-[facility] Telephone encounter Note * Telephone Encounter - Zac Linton MD - 12/13/2023 4:52 PM EDT Please notify patient that her urine culture did show an infection, but the Cipro should treat it; Let us know if symptoms have not improved. Zac Linton MD [facility]08-06-2024 Telephone encounter Note* Telephone Encounter - Lizzy Cooney LPN - 12/10/2023 8:23 AM EDT Patient spouse notified of results, verbalizes understanding of instructions. Lizzy Cooney LPN [facility]08-06-2024 Miscellaneous Notes* Telephone Encounter - Lizzy Cooney LPN - 12/10/2023 8:23 AM EDT Patient spouse notified of results, verbalizes understanding of instructions. Lizzy Cooney LPN * Telephone Encounter - 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 APRN.BAILEY - 12/10/2023 6:53 AM EDT Can you please call the patient back and let her know I would like her to come into the lab to provide another urine sample. Stress the importance of cleansing properly prior to giving sample. I sent in a prescription for Cipro, take this twice daily for the next 7 days. Take with food. The following approved medication requests have been transmitted electronically. Requested Prescriptions Signed Prescriptions Disp Refills ciprofloxacin HCl (CIPRO) 500 mg tablet 14 tablet 0 Sig: Take 1 tablet by mouth two times a day for 7 days. Authorizing Provider: PADMINI MOSER APRN.BAILEY * Telephone Encounter - Ana Hamlin LPN - 12/09/2023 3:59 PM EDT Pt. is having urinary frequency took all the antibiotic symptoms aren't any better. Can a differentantibiotic be call in? Please advise. documented in this encounterOhio [facility] Telephone encounter Note * Telephone Encounter - 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 APRN.CNP - 12/10/2023 6:53 AM EDT Can you please call the patient back and let her know I would like her to come into the lab to provide another urine sample. Stress the importance of cleansing properly prior to giving sample. I sent in a prescription for Cipro, take this twice daily for the next 7 days. Take with food. The following approved medication requests have been transmitted electronically. Requested Prescriptions Signed Prescriptions Disp Refills ciprofloxacin HCl (CIPRO) 500 mg tablet 14 tablet 0 Sig: Take 1 tablet by mouth two times a day for 7 days. Authorizing Provider: PADMINI MOSER APRN.CNP [facility]08-05-2024 Telephone encounter Note* Telephone Encounter - Ana Hamlin LPN - 12/09/2023 3:59 PM EDT Pt. is having urinary frequency took all the antibiotic symptoms aren't any better. Can a differentantibiotic be call in? Please advise. [facility] Work Phone: [phone]) 810-945807-31-2024 Telephone encounter Note* Telephone Encounter - Lizzy Cooney LPN - 12/04/2023 8:54 AM EDT Patient notified of results, verbalizes understanding of instructions. Lizzy Cooney LPN [facility]07-31-2024 Miscellaneous Notes* Telephone Encounter - Lizzy Cooney LPN - 12/04/2023 8:54 AM EDT Patient notified of results, verbalizes understanding of instructions. Lizzy Cooney LPN * Telephone Encounter - 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 APRN.CNP - 12/04/2023 7:48 AM EDT Can you please call the patient and let her know that I reviewed her urine culture results. Urine culture came back with mixed microbiota, this occurs with contamination while collecting sample. If symptoms are improving I would like her to go ahead and finish the antibiotic. Stay well-hydrated. Follow-up if no improvement. 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 APRN.CNP documented in this encounterOhio [facility]07-[facility]-2024 Telephone encounter Note * Telephone Encounter - 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 APRN.CNP - 12/04/2023 7:48 AM EDT Can you please call the patient and let her know that I reviewed her urine culture results. Urine culture came back with mixed microbiota, this occurs with contamination while collecting sample. If symptoms are improving I would like her to go ahead and finish the antibiotic. Stay well-hydrated. Follow-up if no improvement. 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 APRN.CNP [facility]07-29-2024 Instructions* Patient Instructions* 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 APRN.CNP - 12/02/2023 9:45 AM EDT Get fasting labs completed, no food for 10-12 hours prior, you can have black coffee and water. Continue to take all medication as prescribed. Monitor sugars at home. If needed may lower units of insulin if sugars are low, Eat a well balanced diet and stay hydrated Increase water intake Start diflucan for yeast infection, if needed repeat dose in 3 days. Start Macrobid, take with food. Recommend consult with Urology Follow up in 6 months or sooner pending test results. Screening schedule The following prevention plan is recommended: Diabetic Foot Exam Never done Depression Screening Never done Anxiety Screening Never done BP Controlled (<130/80) Never done Shingrix Vaccine(1 of 2) Never done RSV Vaccine(1 - 1-dose 60+ series) Never done Bone Density Screening Never done Pneumococcal Vaccine: 65+(2 of 2 - PCV) due on 06/24/2021 Hemoglobin/Hematocrit due on 12/06/2021 Covid-19 Vaccine(1 - 2023-24 season) Never done Dilated Retinal Exam due on 04/10/2023 Urine Albumin:Creatinine Ratio due on 04/18/2023 Advance Directive Discussion due on 05/06/2023 HbA1C due on 05/20/2023 Annual PCP Team Chronic Disease Visit due on 11/09/2023 Serum Creatinine due on 11/18/2023 LDL Cholesterol due on 11/18/2023 WHAT YOU CAN DO TO PREVENT FALLS Many falls can be prevented. By making some changes, you can lower your chances of falling. Four things YOU can do to prevent falls for you* and your caregiver 1. Begin a regular exercise program Exercise is one of the most important ways to lower your chances of falling. It makes you stronger and helps you feel better. Exercises that improve balance and coordination (like Ehsan Chi) are the most helpful. Lack of exercise leads to weakness and increases your chances of falling. Ask your doctor or health care provider about the best type of exercise program for you. 2. Have your health care provider review your medicines Have your doctor or pharmacist review all the medicines you take, even hfus-mjo-bypionu medicines. As you get older, the way medicines work in your body can change. Some medicines, or combinations of medicines, can make you sleepy or dizzy andcan cause you to fall. 3. Have your vision checked Have your eyes checked by an eye doctor at least once a year. You may be wearing the wrong glasses or have a condition like glaucoma or cataracts that limits your vision. Poor vision can increase your chances of falling. 4. Make your home safer About half of all falls happen at home. To make your home safer: Remove things you can trip over (like papers, books, clothes, and shoes) from stairs and places where you walk. Remove small throw rugs or use double-sided tape to keep the rugs from slipping. Keep items you use often in cabinets you can reach easily without using a step stool. Have grab bars put in next to your toilet and in the tub or shower. Use non-slip mats in the bathtub and on shower floors. Improve the lighting in your home. As you get older, you need brighter lights to see well. Hang light-weight curtains or shades to reduce glare. Have handrails and lights put in on all staircases. Wear shoes both inside and outside the house. Avoid going barefoot or wearing slippers. For more information, contact: Centers for Disease Control and Prevention www.cdc.gov/injury * This information may not apply if you have certain medical conditions. documented in this encounterOhio [facility]07-[facility] History of Present illness Narrative* 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 APRN.CNP - 12/02/2023 6:41 AM EDT Images from the original note were not included. Tarik Baker is a 78 year old female here for a Medicare wellness visit. Medicare Health Risk Assessment General Health Good Exercise: Minutes/Day 0 min Exercise: Days/Week 0 days Alcohol: Daily Use Never Alcohol: Drinks/Day Patient does not drink Alcohol: 6 or more drinks Never Feel off balance Yes Concerns: Teeth/Dentures No Concerns: Sexual function No Troubled by feelings None of the above Frequency: Eating healthy diet Nearly every day ADLs requiring help None of the above Safety precautions in home/vehicle Yes Smoke, vape, chews tobacco No Difficulty hearing No Difficulty seeing Yes Current Providers Specialists: I have reviewed specialist-related care of the patient in the medical record. Medical/Family history review Reviewed and updated problem list, medical/surgical/family/social history, medications, and allergies. Opioid use review Opioid Medications (last 90 days) No data to display Anxiety/Depression screening PHQ-2 Score: 0 (Lower risk for depression) Recommendation: no further intervention at this time Cognitive screening Mini Cog Score: 3 Cognitive screening reviewed and No further action needed (score 3-5). Functional Observation Was the patient's Timed Up & Go test unsteady or ? 12 seconds? No Advance Care Planning Patient did not wish or was not able to name a surrogate decision maker or provide an advance care plan Measurements BP 132/82 Pulse 75 Resp 16 SpO2 97% Vision Screening: Follows with optometry/ophthalmology Assessment/Plan Medicare annual wellness visit, subsequent (Z00.00) - Counseled on healthy diet and regular exercise - Fall avoidance information provided - Personalized prevention plan provided - Discussed need for and benefit of weight loss. No weight on file for this encounter. This is a 78 year old female who presents today with: Patient presents with: Medicare Wellness Exam HISTORY OF PRESENT ILLNESS: Tarik Baker is a 78 year old female. Patient presents with: Medicare Wellness Exam Here in the office for extensive exam. Uro - Pt was seen in July for acute cystitis with hematuria. Had urine culture done that did show infection. She was treated with antibiotics. Called into the office November 18 complaining of urinary symptoms. Refers that she just finished a round of Keflex, urine culture was negative. Reports havingvaginal itching since starting the antibiotics. Has been using Monistat 7 without relief. Reports dy suria, increased frequency, and urgency. Denies abdominal pain, flank pain, fever, and chills. DM: Checks sugars once daily at bedtime 100-150. Denies any hypoglycemic episodes. Reports intermittent numbness in her feet. Taking Humulin Insulin 24 units bid. A1C in November 25 was 7.7, past due forlabs. Lipids: Currently taking Lofibra 160 mg once daily. neida to watch her diet. Also taking ASA 81 mg daily. ARASELI/Depression: Taking Zoloft 100 mg once daily. Reports she does well as long as she takes her Zoloft. Denies SI/HI. HTN: Taking Enalapril 20 mg daily and beet root, which is helpful. Denies checking BP at home. Denies chest pain, palpations, and dizziness. History of NSTEMI in the past. Not following with cardiology. Thyroid: Stable on her current regimen of Levothyroxine 150 mcg once daily. Denies any missed dosages. Vitamin D Deficiency: Taking Vitamin D3 50,000 international unit(s) weekly. PAST MEDICAL HISTORY: PAST MEDICAL HISTORY Diagnosis Date Diabetes (HCC) Essential hypertension History of cardiovascular stress test 12/2020 ef 60, no ischemia PAST SURGICAL HISTORY Procedure Laterality Date TUBAL LIGATION HX ALLERGIES Prednisone MEDICATIONS Current Outpatient Medications Medication Sig levothyroxine (SYNTHROID) 150 mcg tablet Take 1 tablet by mouth once daily. enalapril (VASOTEC) 20 mg tablet Take 1 tablet by mouth once daily. ergocalciferol 50,000 unit capsule (VITAMIN D2, DRISDOL) Take 1 capsule by mouth one time a week. Fenofibrate (LOFIBRA) 160 mg tablet Take 1 tablet by mouth once daily. sertraline (ZOLOFT) 100 mg tablet Take 1 tablet by mouth once daily. insulin NPH injection (HumuLIN N,NovoLIN N) 24 units in the am and 24 units in the pm. aspirin, enteric coated (ASPIRIN, ENTERIC COATED) 325 mg EC tablet Take 1 tablet by mouth once daily. Take with food. multivitamin with minerals (MULTIPLE VITAMINS 55 PLUS ORAL) Take 1 capsule by mouth once daily. Ascorbic Acid (VITAMIN C) 100 mg tablet ZINC ORAL Take by mouth. No current facility-administered medications for this visit. FAMILY HISTORY Problem Relation Age of Onset No Known Problems Mother No Known Problems Father No Known Problems Maternal Grandmother No Known Problems Maternal Grandfather No Known Problems Paternal Grandmother No Known Problems Paternal Grandfather Social History Tobacco Use Smoking status: Never Smokeless tobacco: Never Vaping Use Vaping Use: Never used Substance Use Topics Alcohol use: Never Drug use: Never REVIEW OF SYSTEMS GENERAL: No weight loss, malaise or fevers/chills HEENT: Negative for frequent or significant headaches, No changes in hearing or vision. NECK: Negative for lumps, goiter, pain and significant neck swelling RESPIRATORY: Negative for cough, hemoptysis, wheezing, dyspnea or shortness of breath CARDIOVASCULAR: Negative for chest pain, leg swelling, orthopnea, or palpitations GI: No nausea, vomiting, or diarrhea/constipation. No hematochezia/melena. No heartburn or reflux symptoms. : No history of dysuria, frequency or incontinence MUSCULOSKELETAL: Negative for joint pain or swelling. SKIN: Negative for lesions, rash, and itching ENDOCRINE: Negative for cold or heat intolerance, polyuria, polydipsia and goiter NEURO: No history of headaches, syncope, paralysis, seizures or tremors MOOD: Negative for depression, anxiety, or suicidal ideation. EXAM: BP 132/82 Pulse 75 Resp 16 SpO2 97% PHYSICAL EXAM: General Appearance: Well appearing, alert, in no acute distress, well-hydrated, well nourished. Skin: Skin color, texture, turgor normal, no suspicious rashes or lesions. Head: Normocephalic, no masses, lesions, tenderness or abnormalities. Eyes: Anicteric sclera. Extraocular movements are intact. Lungs: Lungs clear to auscultation. No wheezing, rhonchi, rales. Heart: RRR without murmur, gallop, or rubs. No ectopy. Abdomen: Normal abdominal exam, Abdomen soft, non-tender. Bowel sounds normal. No masses, organomegaly, Negative CVA tenderness. Extremities: No deformities, edema, skin discoloration, clubbing or cyanosis. Good capillary refill. Peripheral Pulses: Normal, Capillary refill <2secs, strong peripheral pulses, Pulses palpable. Neurologic: Gait normal. Sensation grossly intact. ASSESSMENT/PLAN: 1. Medicare annual wellness visit, subsequent - ICD9: V70.0, ICD10: Z00.00 (primary diagnosis) - Counseled on healthy diet and regular exercise - Follow up for annual exam in one year 2. Recurrent UTI (urinary tract infection) - ICD9: 599.0, ICD10: N39.0 recurrent - UA positive for aundrea esterase, hematuria, and proteinuria - Send urine for culture - Begin treatment with Macrobid 100 mg BID for 7 days - Patient education for prevention given - Recommend consult with Urology - NITROFURANTOIN MONOHYDRATE & MACROCRYSTAL 100 MG ORAL CAP 3. Increased urinary frequency - ICD9: 788.41, ICD10: R35.0 - URINE CULTURE - CONSULT TO UROLOGY - URINALYSIS, WITH MICROSCOPIC 4. Vaginal yeast infection - ICD9: 112.1, ICD10: B37.31 - FLUCONAZOLE 150 MG TABLET 5. Type 2 diabetes mellitus with hyperglycemia, with long-term current use of insulin (HCC) - ICD9:250.00, 790.29, V58.67, ICD10: E11.65, Z79.4 - Control undetermined, due for labs - Continue current medications - Counseled on healthy diet and regular exercise - COMPREHENSIVE METABOLIC PANEL - HEMOGLOBIN A1C 6. Chronic kidney disease, stage 3a (HCC) - ICD9: 585.3, ICD10: N18.31 - Due for labs 7. Primary hypertension - ICD9: 401.9, ICD10: I10 - Controlled - Continue current medications - Recommend home blood pressure monitoring, to bring results to next visit - Encouraged sodium restriction, DASH or Mediterranean diet - Recommend regular aerobic exercise 8. Hypertriglyceridemia - ICD9: 272.1, ICD10: E78.1 - Control undetermined, due for labs - Counseled on healthy diet and regular exercise - LIPID PANEL BASIC 9. Hypothyroidism, acquired - ICD9: 244.9, ICD10: E03.9 - Instructed patient on importance of taking on an empty stomach either first thing in the morning or at bedtime. - THYROID STIMULATING HORMONE - T4 FREE/FREE THYROXINE 10. ARASELI (generalized anxiety disorder) - ICD9: 300.02, ICD10: F41.1 - Stable, continue to take current medication. 11. Vitamin D deficiency - ICD9: 268.9, ICD10: E55.9 - VITAMIN D 25 HYDROXY 12. Screening for depression - ICD9: V79.0, ICD10: Z13.31 - DEPRESSION SCREENING 13. Encounter for screening examination for other mental health and behavioral disorders - ICD9: V79.8, ICD10: Z13.39 - ANXIETY SCREENING Follow-up in 6 months or sooner pending test results. Discussed treatment plan and patient voices understanding. Patient's questions answered appropriately. Medications and potential side effects were discussed and patient voices understanding. 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 APRN.REELING MACHINE OPERATOR This note was partially generated using [employer] voice recognition system. Note was reviewed for accuracy. There may be minor misspellings or grammar miscues with [employer] voice recognition. documented in this encounterOhio [facility] Telephone encounter Note * Telephone Encounter - Bambi Warren - 11/29/2023 2:59 PM EDT Patient confirmed new appt with Maty Nolasco. Thanks Bambi Warren [facility]07-26-2024 Miscellaneous Notes* Telephone Encounter - Bambi Warren - 11/29/2023 2:59 PM EDT Patient confirmed new appt with Maty Nolasco. Thanks Bambi Warren * Telephone Encounter - Bambi Warren - 11/27/2023 2:28 PM EDT Called patient and LVM that appt with Dr. Mendez has been canceled and rescheduled with Maty Mendez does not see for recurrent UTI's VM left on patients VM of new appt date and time withMaty Nolasco. Thanks Bambi Warren documented in this encounterOhio [facility]07-[facility] Telephone encounter Note * Telephone Encounter - 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 APRN.CNP - 11/29/2023 10:56 AM EDT Noted 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 APRN.CNP [facility]07-[facility] Miscellaneous Notes* Telephone Encounter - 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 APRN.CNP - 11/29/2023 10:56 AM EDT Noted 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 APRN.CNP * Telephone Encounter - Lizzy Mark RN - 11/29/2023 9:20 AM EDT Pt with hx of UTI's-was on Keflex last week for UTI but culture was negative. Pt states she forgot to take all of her pills yesterday and isn't sure if she even took her insulin or not. She states she and her went out and did something fun yesterday and were just out of it all day. Neither he or she can remember if she took her insulin even last night. She can't remember checking any BSyesterday. feels they did last night and it was 97. Pt instructed to take BS at this time-result 282. Explained to pt that a high blood sugar can cause urinary frequency. Asked her if she hastaken her insulin yet this morning and she had to ask her who states she did not. Pt has been up since 7 am and ate breakfast already. Encouraged to take her insulin now and check a BS in a few hours. If starts having the urinary frequency again, check a BS at that time. Pt encouraged to monitor and if she starts having pain or burning with urination or feels she has a bladder infection over the weekend, to come [facility]. Explained that Dr. Linton is out today and Padmini is out this afternoon. Pt has an appt with Padmini Saturday morning at 0940 and her kidney ultrasound at 1045 after. Pt and reminded of these appts. Reason for Disposition Has to get out of bed to urinate > 2 times a night (i.e., nocturia) Answer Assessment - Initial Assessment Questions 1. SYMPTOM: urinary frequency guessing every 15 mins til about 0700 am this morning. States she would get up and urinate, go back to bed, get comfortable and would have to get up and go again. Seems to have stopped this morning as she hasn't gone since 7 am. No discomfort and feels fine now. 2. ONSET: last night around 0100 am 3. PAIN: denies pain or burning. States maybe one 4. CAUSE: worried she is getting another UTI 5. OTHER SYMPTOMS:denies 6. : n/a Protocols used: Urinary Nxhoqwdp-WGWGC-SP documented in this encounterOhio [facility]07-[facility] Telephone encounter Note * Telephone Encounter - Lizzy Mark RN - 11/29/2023 9:20 AM EDT Pt with hx of UTI's-was on Keflex last week for UTI but culture was negative. Pt states she forgot to take all of her pills yesterday and isn't sure if she even took her insulin or not. She states she and her went out and did something fun yesterday and were just out of it all day. Neither he or she can remember if she took her insulin even last night. She can't remember checking any BSyesterday. feels they did last night and it was 97. Pt instructed to take BS at this time-result 282. Explained to pt that a high blood sugar can cause urinary frequency. Asked her if she hastaken her insulin yet this morning and she had to ask her who states she did not. Pt has been up since 7 am and ate breakfast already. Encouraged to take her insulin now and check a BS in a few hours. If starts having the urinary frequency again, check a BS at that time. Pt encouraged to monitor and if she starts having pain or burning with urination or feels she has a bladder infection over the weekend, to come to [facility]. Explained that Dr. Linton is out today and Padmini is out this afternoon. Pt has an appt with Padmini Saturday morning at 0940 and her kidney ultrasound at 1045 after. Pt and reminded of these appts. Reason for Disposition Has to get out of bed to urinate > 2 times a night (i.e., nocturia) Answer Assessment - Initial Assessment Questions 1. SYMPTOM: urinary frequency guessing every 15 mins til about 0700 am this morning. States she would get up and urinate, go back to bed, get comfortable and would have to get up and go again. Seems to have stopped this morning as she hasn't gone since 7 am. No discomfort and feels fine now. 2. ONSET: last night around 0100 am 3. PAIN: denies pain or burning. States maybe one 4. CAUSE: worried she is getting another UTI 5. OTHER SYMPTOMS:denies 6. : n/a Protocols used: Urinary Duladqkv-IOKPM-WR [facility]07-24-[facility] Telephone encounter Note* Telephone Encounter - Bambi Warren - 11/27/2023 2:28 PM EDT Called patient and LVM that appt with Dr. Mendez has been canceled and rescheduled with Maty Mendez does not see for recurrent UTI's VM left on patients VM of new appt date and time withMaty Nolasco. Thanks Bambi Warren [facility]07-22-2024 Note* Addendum Note - 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 APRN.CNP - 11/25/2023 9:23 AM EDTAddended by: PADMINI MSOER on: 11/25/2023 09:23 AM Modules accepted: Orders [facility]07-22-20[facility] Telephone encounter Note* Telephone Encounter - 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 APRN.CNP - 11/25/2023 9:23 AM EDT US Bladder/Kidney placed. Thank you. 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 APRN.REELING MACHINE OPERATOR [facility]07-22-2024 Miscellaneous Notes* Addendum Note - 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 APRN.CNP - 11/25/2023 9:23 AM EDTAddended by: PADMINI MOSER on: 11/25/2023 09:23 AM Modules accepted: Orders * Telephone Encounter - 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 APRN.CNP - 11/25/2023 9:23 AM EDT US Bladder/Kidney placed. Thank you. 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 APRN.REELING MACHINE OPERATOR * Telephone Encounter - Lizzy Cooney LPN - 11/25/2023 8:59 AM EDT Patient notified of results, verbalizes understanding of instructions. Need to put in the US order. Lizzy Cooney LPN * Telephone Encounter - Lizzy Cooney LPN - 11/22/2023 1:31 PM EDT TC to pt. LM to call office, ask for triage nurse to get results. Lizzy Cooney LPN * Telephone Encounter - 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 APRN.CNP - 11/22/2023 1:20 PM EDT Can you please call the patient and and let them know I reviewed her urine results. Micro UA showed blood but no infection. I would recommend we get an ultrasound for further evaluation and referral to Urology. Can you please ask if she has had any vaginal bleeding? 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 APRN.CNP documented in this encounterOhio [facility]07-[facility]-20[facility] Telephone encounter Note * Telephone Encounter - Lizzy Cooney LPN - 11/25/2023 8:59 AM EDT Patient notified of results, verbalizes understanding of instructions. Need to put in the US order. Lizzy Cooney LPN [facility]07-19-2024 Telephone encounter Note* Telephone Encounter - Lizzy Cooney LPN - 11/22/2023 1:31 PM EDT TC to pt. LM to call office, ask for triage nurse to get results. Lizzy Cooney LPN [facility]07-19-20[facility] Telephone encounter Note* Telephone Encounter - 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 APRN.CNP - 11/22/2023 1:20 PM EDT Can you please call the patient and and let them know I reviewed her urine results. Micro UA showed blood but no infection. I would recommend we get an ultrasound for further evaluation and referral to Urology. Can you please ask if she has had any vaginal bleeding? 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 APRN.BAILEY [facility]07-16-2024 Miscellaneous Notes* Telephone Encounter - Cinthya Syed MA - 11/19/2023 11:56 AM EDT Pt notified. Cinthya Syed MA * Telephone Encounter - Zac Linton MD - 11/19/2023 11:54 AM EDT UA and Keflex ordered Zac Linton MD * Telephone Encounter - Colette Childers - 11/19/2023 8:50 AM EDT Pt calling in stating pt has had frequent UTI's. He is requesting an order for a urine testif he can get a collection cup and bring it back to office. Also asking for previous medication refill for her UTI to be sent to [facility] pharmacy. Please advise and call at [phone] regarding. Thank you documented in this encounterOhio [facility]07-16-2024 Telephone encounter Note * Telephone Encounter - Cinthya Syed MA - 11/19/2023 11:56 AM EDT Pt notified. Cinthya Syed MA [facility]07-16-20[facility] Telephone encounter Note* Telephone Encounter - Zac Linton MD - 11/19/2023 11:54 AM EDT UA and Keflex ordered Zac Linton MD [facility]07-16-[facility] Telephone encounter Note* Telephone Encounter - Colette Childers - 11/19/2023 8:50 AM EDT Pt calling in stating pt has had frequent UTI's. He is requesting an order for a urine testif he can get a collection cup and bring it back to office. Also asking for previous medication refill for her UTI to be sent to [facility] pharmacy. Please advise and call at [phone] regarding. Thank you [facility]06-27-[facility] Telephone encounter Note* Telephone Encounter - Zac Linton MD - 10/31/2023 4:02 PM EDT Done in other phone note Zac Linton MD [facility]06-27-[facility] Miscellaneous Notes* Telephone Encounter - Zac Linton MD - 10/31/2023 4:02 PM EDT Done in other phone note Zac Linton MD * Telephone Encounter - Olga Corbin MA - 10/30/2023 2:11 PM EDT Placed call to patient with no answer. Left VM for call back. Received refill request via my chart from [facility] pharmacy requesting her levothyroxine. She is overdue for an appointment. Needs scheduled. Ok to refill or do you need to see pt first. Olga Corbin MA documented in this encounterOhio [facility]06-26-2024 Telephone encounter Note * Telephone Encounter - Olga Corbin MA - 10/30/2023 2:11 PM EDT Placed call to patient with no answer. Left VM for call back. Received refill request via my chart from [facility] pharmacy requesting her levothyroxine. She is overdue for an appointment. Needs scheduled. Ok to refill or do you need to see pt first. Olga Corbin MA [facility]06-24-[facility] Telephone encounter Note* Telephone Encounter - Cinthya Syed MA - 10/28/2023 12:30 PM EDT Pt notified. Cinthya Syed MA [facility]06-24-2024 Miscellaneous Notes* Telephone Encounter - Cinthya Syed MA - 10/28/2023 12:30 PM EDT Pt notified. Cinthya Syed MA * Telephone Encounter - Zac Linton MD - 10/28/2023 12:17 PM EDT OK fro 7 days of Keflex as ordered; let me know if her symptoms do not improve. Zac Linton MD * Telephone Encounter - iLzzy Mark RN - 10/28/2023 8:25 AM EDT Pt calling in stating she has a bladder infection. Pt states she gets them all the time and needs to be treated as soon as possible. States she has a hx of bladder infections and to [facility] Dr. Linton to send something in for her as she is uncomfortable. Pt states she is unable to get up without significant help as she recently broke her arm and shoulder due to a fall. Pt was seen in [facility] ER for this. She states her is unable to get her up without significant help. She has no other way to get here to give urine sample. Pt states symptoms started last week. She is having itching, burning and pain all the time but worse when she urinates. States is peeing all the time. Pt was treated with Diflucan last week for possible yeast infection but pt states she told her it was a bladder infection. Explained to pt that Dr. Linton is not in the office until noon. Pt asking if Padmini could call something in as she needs the antibiotic as soon as possible. Explained Padmini is also out. Pt okay to wait until Dr. Linton comes in as she won't be able to come in for an appt or give a urine sample. Pt uses a bedside commode. Pt last seen 11/08/22 and no upcoming appt. Pt states several times that she cannot come in due to her broken arm. Please return call to pt after Dr. Linton review. Pt uses [facility]. documented in this encounterOhio [facility]06-[facility]-2024 Telephone encounter Note * Telephone Encounter - Zac Linton MD - 10/28/2023 12:17 PM EDT OK fro 7 days of Keflex as ordered; let me know if her symptoms do not improve. Zac Linton MD [facility] Telephone encounter Note* Telephone Encounter - Lizzy Mark RN - 10/28/2023 8:25 AM EDT Pt calling in stating she has a bladder infection. Pt states she gets them all the time and needs to be treated as soon as possible. States she has a hx of bladder infections and to [facility] Dr. iLnton to send something in for her as she is uncomfortable. Pt states she is unable to get up without significant help as she recently broke her arm and shoulder due to a fall. Pt was seen in [facility] ER for this. She states her is unable to get her up without significant help. She has no other way to get here to give urine sample. Pt states symptoms started last week. She is having itching, burning and pain all the time but worse when she urinates. States is peeing all the time. Pt was treated with Diflucan last week for possible yeast infection but pt states she told her it was a bladder infection. Explained to pt that Dr. Linton is not in the office until noon. Pt asking if Padmini could call something in as she needs the antibiotic as soon as possible. Explained Padmini is also out. Pt okay to wait until Dr. Linton comes in as she won't be able to come in for an appt or give a urine sample. Pt uses a bedside commode. Pt last seen 11/08/22 and no upcoming appt. Pt states several times that she cannot come in due to her broken arm. Please return call to pt after Dr. Linton review. Pt uses [facility]. [facility] Telephone encounter Note* Telephone Encounter - Jayla Jaeger MA - 10/25/2023 4:28 PM EDT Call to Sin, line was disconnected. Contacted Sin again, he's unsure what his Insurance covers and asked if in-home care is free. Notified pt that this is not generally free and there are Companiesthat work with your insurance. Pt notified that I would forward the order to [facility] to see if they accept pt's insurance. If not, we would notify him and he would need to check with his insurance. Jayla Jaeger MA [facility]06-21-2024 Miscellaneous Notes* Telephone Encounter - Jayla Jaeger MA - 10/25/2023 4:28 PM EDT Call to Sin, line was disconnected. Contacted Sin again, he's unsure what his Insurance covers and asked if in-home care is free. Notified pt that this is not generally free and there are Companiesthat work with your insurance. Pt notified that I would forward the order to [facility] to see if they accept pt's insurance. If not, we would notify him and he would need to check with his insurance. Jayla Jaeger MA * Telephone Encounter - Zac Linton MD - 10/25/2023 4:22 PM EDT Order for Home Care done, if still needed. Zac Linton MD * Telephone Encounter - Kaitlin Bolton LPN - 10/22/2023 9:55 AM EDT Patients in this day requesting PCP put in an order for Home Health Care for her. Patient seen at [facility] on 10/17/2023 for shoulder injury/break from fall. Patient has not followed up with ortho as recommended and has not followed up with PCP office. Patients spouse states it took 3 men to get her into the house and he is unable to get her in here for an appointment. States she justsits in her chair and does nothing and he would like some help for her so he is able to leave the house at times. Patient does not walk, does at times with very minimal steps. He is able to get her up and down with the help of a lift recliner and is able to pivot her to a wheelchair to get her around their home. Please advise on what route can be taken. Kaitlin Bolton LPN documented in this encounterOhio [facility]06-[facility]-2024 Telephone encounter Note * Telephone Encounter - Zac Linton MD - 10/25/2023 4:22 PM EDT Order for Home Care done, if still needed. Zac Linton MD [facility] Telephone encounter Note* Telephone Encounter - Greer Simmons RN - 10/23/2023 9:08 AM EDT Patient's notified that prescription sent to pharmacy. voices understanding. Greer Simmons RN [facility]06-19-2024 Miscellaneous Notes* Telephone Encounter - Greer Simmons RN - 10/23/2023 9:08 AM EDT Patient's notified that prescription sent to pharmacy. voices understanding. Greer Simmons RN * Telephone Encounter - 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 APRN.CNP - 10/23/2023 9:06 AM EDT The following approved medication requests have been transmitted electronically. Requested Prescriptions Signed Prescriptions Disp Refills fluconazole (DIFLUCAN) 150 mg tablet 2 tablet 0 Sig: Take 1 tablet by mouth one time only for 1 dose. Repeat in 3 days as needed. 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 APRN.CNP * Telephone Encounter - Greer Simmons RN - 10/23/2023 8:56 AM EDT Patient call in for yeast infection symptoms. Patient has a history of this, and has been sent in antibiotic for this previously. Patient asking if medication can be sent to [facility] [place]? Patient broke shoulder a couple of days ago and does not think she can get to appointment. Nurse Triage assessment completed with protocol recommending for disposition of see PCP in 3 days. Care advice reviewed with patient, patient stated understanding. Reason for Disposition [1] Symptoms of a yeast infection (i.e., itchy, white discharge, not bad smelling) AND [2] not improved > 3 days following Care Advice Answer Assessment - Initial Assessment Questions 1. SYMPTOM: Burning and Itching 2. LOCATION: Inside 3. ONSET: Couple of days 4. PAIN: Pain rating 6 or 7 out of 10. 5. ITCHING: Severe Itching 6. CAUSE: No Discharge 7. OTHER SYMPTOMS: Itching, pain in vagina Protocols used: Vaginal Wapzdikw-NOJGG-SO documented in this encounterOhio State University [facility]06-19-2024 Telephone encounter Note * Telephone Encounter - 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 APRN.CNP - 10/23/2023 9:06 AM EDT The following approved medication requests have been transmitted electronically. Requested Prescriptions Signed Prescriptions Disp Refills fluconazole (DIFLUCAN) 150 mg tablet 2 tablet 0 Sig: Take 1 tablet by mouth one time only for 1 dose. Repeat in 3 days as needed. 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 APRN.BAILEY [facility]06-19-2024 Telephone encounter Note* Telephone Encounter - Greer Simmons RN - 10/23/2023 8:56 AM EDT Patient call in for yeast infection symptoms. Patient has a history of this, and has been sent in antibiotic for this previously. Patient asking if medication can be sent to [facility]? Patient broke shoulder a couple of days ago and does not think she can get to appointment. Nurse Triage assessment completed with protocol recommending for disposition of see PCP in 3 days. Care advice reviewed with patient, patient stated understanding. Reason for Disposition [1] Symptoms of a yeast infection (i.e., itchy, white discharge, not bad smelling) AND [2] not improved > 3 days following Care Advice Answer Assessment - Initial Assessment Questions 1. SYMPTOM: Burning and Itching 2. LOCATION: Inside 3. ONSET: Couple of days 4. PAIN: Pain rating 6 or 7 out of 10. 5. ITCHING: Severe Itching 6. CAUSE: No Discharge 7. OTHER SYMPTOMS: Itching, pain in vagina Protocols used: Vaginal Dbhwdfhn-NCPTD-MW [facility]06-18-2024 Telephone encounter Note* Telephone Encounter - Kaitlin Bolton LPN - 10/22/2023 9:55 AM EDT Patients in this day requesting PCP put in an order for Home Health Care for her. Patient seen at [facility] on 10/17/2023 for shoulder injury/break from fall. Patient has not followed up with ortho as recommended and has not followed up with PCP office. Patients spouse states it took 3 men to get her into the house and he is unable to get her in here for an appointment. States she justsits in her chair and does nothing and he would like some help for her so he is able to leave the house at times. Patient does not walk, does at times with very minimal steps. He is able to get her up and down with the help of a lift recliner and is able to pivot her to a wheelchair to get her around their home. Please advise on what route can be taken. Kaitlin Bolton LPN [facility]12-08-2023 Miscellaneous Notes* Telephone Encounter - Cinthya Syed Ma - 04/12/2023 9:55 AM EST Forms faxed to [employer]. Cinthya Syed Ma * Telephone Encounter - Zac Linton MD - 04/11/2023 6:28 PM EST Form done Zac Linton MD * Telephone Encounter - Jayla Jaeger Ma - 04/05/2023 11:38 AM EST Office received forms. Type of form: FMLA Form received via fax When form is completed, Fax form to [employer], ATTN: Shamika Nunez at F#: [phone]. Form has been forwarded to Physician Desk: Dr. Royer Jaeger Ma * Telephone Encounter - Jayla Jaeger Ma - 04/04/2023 11:59 AM EST Office will watch for forms. Jayla Jaeger Ma * Telephone Encounter - Alexandra Florentino LPN - 04/04/2023 10:48 AM EST Daughter Breanna Jackman calling to let you know she is having [employer] fax over [place] papers for her to take care of pt. Also be looking for a 2nd set of forms to be filled out for her step dad Sin Baker. Will need to fill out forms for each pt. Please watch for forms. Alexandra Florentino LPN documented in this encounterOhio State University [facility]10-19-2023 History of Present illness Narrative* Viet Castro APRN.REELING MACHINE OPERATOR - 02/21/2023 10:34 AM EDT Subjective HPI A nontoxic appearing female presents to urgent care with chief complaint of possible UTI. Duration of symptoms 2 days. Associated symptoms dysuria, frequency, and urgency. Patient has history of UTIsin past with similar signs and symptoms. Patient denies the use of any [id number] medicationsor home remedies for symptom management. Patient states pain is a 3/10. Patient denies any fevers, flank pain, abdominal pain, nausea, vomiting, vaginal discharge, or urological abnormalities. Past medical history prescription medication use allergies reviewed. .Patient presents with: UTI: Burning , itching x 2 days PAST MEDICAL HISTORY Diagnosis Date Diabetes (HCC) Essential hypertension History of cardiovascular stress test 12/2020 ef 60, no ischemia PAST SURGICAL HISTORY Procedure Laterality Date TUBAL LIGATION HX ALLERGIES Prednisone MEDICATIONS Fenofibrate (LOFIBRA) 160 mg tablet Take 1 tablet by mouth once daily. sertraline (ZOLOFT) 100 mg tablet Take 1 tablet by mouth once daily. levothyroxine (SYNTHROID) 150 mcg tablet Take 1 tablet by mouth once daily. ergocalciferol 50,000 unit capsule (VITAMIN D2, DRISDOL) TAKE 1 CAPSULE BY MOUTH ONCE A WEEK enalapril (VASOTEC) 20 mg tablet Take 1 tablet by mouth once daily. insulin NPH injection (HumuLIN N,NovoLIN N) 24 units in the am and 24 units in the pm. aspirin, enteric coated (ASPIRIN, ENTERIC COATED) 325 mg EC tablet Take 1 tablet by mouth once daily. Take with food. multivitamin with minerals (MULTIPLE VITAMINS 55 PLUS ORAL) Take 1 capsule by mouth once daily. Ascorbic Acid (VITAMIN C) 100 mg tablet ZINC ORAL Take by mouth. FAMILY HISTORY Problem Relation Age of Onset No Known Problems Mother No Known Problems Father No Known Problems Maternal Grandmother No Known Problems Maternal Grandfather No Known Problems Paternal Grandmother No Known Problems Paternal Grandfather Social History Tobacco Use Smoking status: Never Smokeless tobacco: Never Vaping Use Vaping Use: Never used Substance Use Topics Alcohol use: Never Drug use: Never BP 148/80 Pulse 92 Temp 36.8 C (98.3 F) Resp 22 Wt 97 kg (213 lb 12.8 oz) SpO2 95% BMI 35.58 kg/m Review of Systems Constitutional: Negative for chills, fever and malaise/fatigue. HENT: Negative for congestion, ear discharge, ear pain, sinus pain and sore throat. Eyes: Negative for blurred vision, pain, discharge and redness. Respiratory: Negative for cough, hemoptysis, sputum production, shortness of breath, wheezing and stridor. Cardiovascular: Negative for chest pain. Gastrointestinal: Negative for abdominal pain, constipation, diarrhea, nausea and vomiting. Genitourinary: Positive for dysuria, frequency and urgency. Negative for flank pain and hematuria. Musculoskeletal: Negative for myalgias. Skin: Negative for itching and rash. Neurological: Negative for dizziness and headaches. Objective Physical Exam Vitals and nursing note reviewed. Constitutional: General: She is not in acute distress. Appearance: She is not toxic-appearing or diaphoretic. HENT: Head: Normocephalic. Jaw: No trismus. Right Ear: Hearing normal. No decreased hearing noted. No drainage, swelling or tenderness. Tympanic membrane is not perforated, erythematous or bulging. Left Ear: Hearing normal. No decreased hearing noted. No drainage, swelling or tenderness. Tympanicmembrane is not perforated, erythematous or bulging. Nose: Nose normal. Mouth/Throat: Pharynx: Uvula midline. No uvula swelling. Tonsils: No tonsillar abscesses. Eyes: Pupils: Pupils are equal, round, and reactive to light. Cardiovascular: Rate and Rhythm: Normal rate and regular rhythm. Pulses: Normal pulses. Pulmonary: Effort: Pulmonary effort is normal. No respiratory distress. Breath sounds: Normal breath sounds. No wheezing, rhonchi or rales. Abdominal: General: Bowel sounds are normal. There is no distension. Palpations: Abdomen is soft. Abdomen is not rigid. Tenderness: There is no abdominal tenderness. There is no right CVA tenderness, left CVA tenderness, guarding or rebound. Negative signs include Higginbotham's sign and McBurney's sign. Musculoskeletal: General: No tenderness. Cervical back: Normal range of motion. Lymphadenopathy: Head: Right side of head: No submental, submandibular, tonsillar, preauricular, posterior auricular or occipital adenopathy. Left side of head: No submental, submandibular, tonsillar, preauricular, posterior auricular or occipital adenopathy. Cervical: Right cervical: No superficial or posterior cervical adenopathy. Left cervical: No superficial or posterior cervical adenopathy. Skin: General: Skin is warm and dry. Findings: No rash. Neurological: General: No focal deficit present. Mental Status: She is alert and oriented to person, place, and time. ASSESSMENT/PLAN: 1. Burning with urination - ICD9: 788.1, ICD10: R30.0 - UA DIP, URINE (POC) - URINE CULTURE Urine positive for blood leukocytes and nitrates. Treat for acute cystitis at today's visit. Placedon Keflex. Previous urine culture positive for E. coli sensitive for cephalosporins. Red flags prompt reevaluation discussed. Patient was educated on supportive therapies. Patient will follow up withprimary care provider as needed. Patient was instructed to immediately proceed to emergency room for any new, worsening, or symptoms lasting longer than anticipated. The patient's clinical presentation is otherwise unremarkable at this time. Based on exam and clinical finding, the patient is stablefor discharge. Plan of care was discussed with patient. Patient verbalizes understanding and agreesto plan of care. This note was generated using [employer] software. It may contain errors in wording, punctuation, or spelling. Viet Castro APRN.BAILEY documented in this encounterOhio State University [facility]07-19-2023 Miscellaneous Notes* Telephone Encounter - Lizzy Cooney LPN - 11/21/2022 8:55 AM EDT Patient notified of results, verbalizes understanding of instructions. Lizzy Cooney LPN * Telephone Encounter - Zac Linton MD - 11/20/2022 5:00 PM EDT Please notify patient that her lab results all look OK; stay on the same medications and follow up in 6 months as planned. Zac Linton MD documented in this encounterOhio State University [facility]05-30-2023 Miscellaneous Notes* Telephone Encounter - Shankar Palacio APRN.CNP - 10/02/2022 12:26 PM EDT The following approved medication requests have been transmitted electronically. Requested Prescriptions Pending Prescriptions Disp Refills levothyroxine (SYNTHROID) 150 mcg tablet 90 tablet 3 Sig: Take 1 tablet by mouth once daily. Shankar Palacio APRN.CNP * Telephone Encounter - Alexia Hunter - 10/02/2022 10:12 AM EDT Patient has been identified by name and date of : Yes Requested Prescriptions Pending Prescriptions Disp Refills levothyroxine (SYNTHROID) 150 mcg tablet 90 tablet 3 Sig: Take 1 tablet by mouth once daily. RX INSTRUCTIONS: Patient is out of medication Patient aware RX will be sent to pharmacy. No need to notify patient. Alexia Hunter documented in this encounterOhio State University [facility]03-13-2023 Miscellaneous Notes* Telephone Encounter - Zac Linton MD - 07/16/2022 3:36 PM EDT OK to refill as ordered Zac Linton MD documented in this encounterOhio State University [facility]03-10-2023 Miscellaneous Notes* Telephone Encounter - Roxanne Ray MA - 07/13/2022 10:46 AM EST The following approved medication requests have been transmitted electronically. Requested Prescriptions Signed Prescriptions Disp Refills levothyroxine (SYNTHROID) 150 mcg tablet 90 tablet 3 Sig: Take 1 tablet by mouth once daily. Authorizing Provider: SHANKAR PALACIO MA * Telephone Encounter - Shankar Palacio APRN.CNP - 07/13/2022 10:40 AM EST Please let them know that I have sent. The following approved medication requests have been transmitted electronically. Requested Prescriptions Pending Prescriptions Disp Refills levothyroxine (SYNTHROID) 150 mcg tablet 90 tablet 3 Sig: Take 1 tablet by mouth once daily. Shankar Palacio APRN.CNP * Telephone Encounter - Citlali Chawla - 07/13/2022 9:56 AM EST Patient has been identified by name and date of : Yes Requested Prescriptions Pending Prescriptions Disp Refills levothyroxine (SYNTHROID) 150 mcg tablet 90 tablet 3 Sig: Take 1 tablet by mouth once daily. RX INSTRUCTIONS: Spouse called and stated this needs to be sent today, she is out of meds. He claims he called, nothing is in the sytem and notified not requested by the Pharmacy. Patient aware RX will be sent to pharmacy. No need to notify patient. Citlali Chawla documented in this encounterOhio State University [facility]03-10-2023 Miscellaneous Notes* Telephone Encounter - Citlali Chawla - 07/13/2022 9:58 AM EST Spouse called and was notified there are still available refills. He needs to call the Pharmacy andspeak to a person. documented in this encounterOhio State University [facility]03-06-2023 Miscellaneous Notes* Telephone Encounter - Lizzy Cooney LPN - 07/09/2022 9:28 AM EST Patient notified of results, verbalizes understanding of instructions. Lizzy Cooney LPN * Telephone Encounter - 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 APRN.CNP - 07/09/2022 7:46 AM EST Can you please call the patient and let her know that her urine culture did come back positive for urinary tract infection. Antibiotic that was ordered will treat this. Continue to stay well-hydrated. Please let me know if she has any questions. Thank you. 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 APRN.BAILEY documented in this encounterOhio State University [facility]03-02-2023 Instructions* Patient Instructions* 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 APRN.BAILEY - 07/05/2022 9:54 AM EST Start Macrobid, take twice daily with food. May use pyridium as needed for pain with urination, medication will turn urine bright orange. Stay well hydrated. Follow up as needed, Prevention: May consider adding on Vitamin C, D-mannose/cranberry, and probiotic. Stay well hydrated. documented in this encounterOhio State University [facility]03-02-2023 History of Present illness Narrative* 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 APRN.CNP - 07/05/2022 9:40 AM EST This is a 76 year old female who presents today with: Patient presents with: UTI HISTORY OF PRESENT ILLNESS: Tarik Baker is a 76 year old female. Patient presents with: UTI Here in the office for concerns for possible UTI. Increase Urine frequency that started several months ago. Refers that she started taking garlic and vinegar pills that helped. No fever, chills, or flank pain. History of Type 2 Diabetes, refers that glucose fasting 114. Well controlled. Taking insulin. PAST MEDICAL HISTORY: PAST MEDICAL HISTORY Diagnosis Date Diabetes (HCC) Essential hypertension History of cardiovascular stress test 12/2020 ef 60, no ischemia PAST SURGICAL HISTORY Procedure Laterality Date TUBAL LIGATION HX ALLERGIES Prednisone MEDICATIONS Current Outpatient Medications Medication Sig enalapril (VASOTEC) 20 mg tablet Take 1 tablet by mouth once daily. sertraline (ZOLOFT) 100 mg tablet Take 1 tablet by mouth once daily. ergocalciferol 50,000 unit capsule (VITAMIN D2, DRISDOL) Take 1 capsule by mouth one time a week. Fenofibrate (LOFIBRA) 160 mg tablet Take 1 tablet by mouth once daily. insulin NPH injection (HumuLIN N,NovoLIN N) 24 units in the am and 24 units in the pm. aspirin, enteric coated (ASPIRIN, ENTERIC COATED) 325 mg EC tablet Take 1 tablet by mouth once daily. Take with food. levothyroxine (SYNTHROID) 150 mcg tablet Take 1 tablet by mouth once daily. multivitamin with minerals (MULTIPLE VITAMINS 55 PLUS ORAL) Take 1 capsule by mouth once daily. Ascorbic Acid (VITAMIN C) 100 mg tablet ZINC ORAL Take by mouth. No current facility-administered medications for this visit. FAMILY HISTORY Problem Relation Age of Onset No Known Problems Mother No Known Problems Father No Known Problems Maternal Grandmother No Known Problems Maternal Grandfather No Known Problems Paternal Grandmother No Known Problems Paternal Grandfather Social History Tobacco Use Smoking status: Never Smokeless tobacco: Never Vaping Use Vaping Use: Never used Substance Use Topics Alcohol use: Never Drug use: Never REVIEW OF SYSTEMS GENERAL: No weight loss, malaise or fevers/chills HEENT: Negative for frequent or significant headaches, No changes in hearing or vision. NECK: Negative for lumps, goiter, pain and significant neck swelling RESPIRATORY: Negative for cough, hemoptysis, wheezing, dyspnea or shortness of breath CARDIOVASCULAR: Negative for chest pain, leg swelling, orthopnea, or palpitations GI: No nausea, vomiting, or diarrhea/constipation. No hematochezia/melena. No heartburn or reflux symptoms. : + Increase Urinary Frequency MUSCULOSKELETAL: Negative for joint pain or swelling. SKIN: Negative for lesions, rash, and itching ENDOCRINE: Negative for cold or heat intolerance, polyuria, polydipsia and goiter NEURO: No history of headaches, syncope, paralysis, seizures or tremors MOOD: Negative for depression, anxiety, or suicidal ideation. EXAM: BP 136/78 Pulse 89 Temp 37.1 C (98.8 F) (Right Tympanic) Resp 16 Wt 92.1 kg (203 lb) [id number]% BMI 33.78 kg/m PHYSICAL EXAM: General Appearance: Well appearing, alert, in no acute distress, well-hydrated, well nourished. Skin: Skin color, texture, turgor normal, no suspicious rashes or lesions. Head: Normocephalic, no masses, lesions, tenderness or abnormalities. Eyes: Anicteric sclera. Extraocular movements are intact. Lungs: Lungs clear to auscultation. No wheezing, rhonchi, rales. Heart: RRR without murmur, gallop, or rubs. No ectopy. Abdomen: Normal abdominal exam, Abdomen soft, non-tender. Bowel sounds normal. No masses, organomegaly, Negative CVA tenderness. Extremities: No deformities, edema, skin discoloration, clubbing or cyanosis. Good capillary refill. Peripheral Pulses: Normal, Capillary refill <2secs, strong peripheral pulses, Pulses palpable. Neurologic: Gait normal. Sensation grossly intact. UA: + Trace Blood, Nitrates, and Leuks ASSESSMENT/PLAN: 1. Acute cystitis with hematuria - ICD9: 595.0, ICD10: N30.01 - Send urine off for culture. - Start Macrobid, take as directed - May use Pyridium as needed for dysuria. - URINE CULTURE - NITROFURANTOIN MONOHYDRATE & MACROCRYSTAL 100 MG ORAL CAP - PHENAZOPYRIDINE 100 MG TABLET Follow-up pending test results or sooner as needed. Discussed treatment plan and patient voices understanding. Patient's questions answered appropriately. Medications and potential side effects were discussed and patient voices understanding. 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 APRN.BAILEY This note was partially generated using [employer] voice recognition system. Note was reviewed for accuracy. There may be minor misspellings or grammar miscues with [employer] voice recognition. documented in this encounterOhio State University [facility]03-01-2023 Miscellaneous Notes* Telephone Encounter - Love Caba Ma - 07/04/2022 2:18 PM EST Patient spouse was notified patient needs to be seen. Declined appointment will go to Love Caba Ma * Telephone Encounter - Ayleen Guzman Pss - 07/04/2022 1:55 PM EST Sin is calling for Alejandra. He is asking for an antibiotic for a possible urinary infection. Please contact him at [phone]. YANELI Palacios documented in this encounterOhio State University [facility]01-10-2023 Miscellaneous Notes* Telephone Encounter - Zac Linton MD - 05/15/2022 11:51 AM EST OK to refill as ordered Zac Linton MD * Telephone Encounter - Cinthya Syde Ma - 05/15/2022 11:43 AM EST Last office visit: 06/07/21 F/u scheduled: none Cinthya Syed Ma * Telephone Encounter - Laura Navarro - 05/15/2022 11:39 AM EST Patient has been identified by name and date of : Yes Requested Prescriptions Pending Prescriptions Disp Refills enalapril (VASOTEC) 20 mg tablet 90 tablet 3 Sig: Take 1 tablet by mouth once daily. RX INSTRUCTIONS: Patient aware RX will be sent to pharmacy. No need to notify patient. Laura Navarro documented in this encounterOhio State University [facility]12-05-2022 Miscellaneous Notes* Telephone Encounter - Shankar Palacio APRN.CNP - 04/09/2022 11:22 AM EST Increase to 1 tablet. The following approved medication requests have been transmitted electronically. Requested Prescriptions Pending Prescriptions Disp Refills sertraline (ZOLOFT) 100 mg tablet 90 tablet 5 Sig: Take 1 tablet by mouth once daily. Shankar Palacio APRN.BAILEY * Telephone Encounter - Ayleen Chawla - 04/09/2022 9:04 AM EST Alejandra needs a refill on her Prozac. She was taking 0.5 tablets, but spoke to Dr. Linton at last visit and was advised to take 1 tablet, so she is out early. Please review, rewrite, and resend script to the [facility] in [place]. * Telephone Encounter - Ayleen Chawla - 04/09/2022 9:01 AM EST Pharmacy verified in [facility] Patient has been identified by name and date of : Yes Patient aware RX will be sent to pharmacy. No need to notify patient. Alejandra needs a refill on her Prozac. She was taking 0.5 tablets, but spoke to Dr. Linton at last visit and was advised to take 1 tablet, so she is out early. Please review, rewrite, and resend script to the [facility] in [place]. Note Spouse phones for refill(s): Requested Prescriptions Pending Prescriptions Disp Refills sertraline (ZOLOFT) 100 mg tablet Sig: Take by mouth once daily. Date of last office visit : 06/07/2021 Labs-12/18/21 Date of next office visit : 05/01/2022 Last 2 Encounter Wt Readings: Date: Wt: 10/13/2021 90.4 kg (199 lb 6.4 oz) 06/07/2021 90.1 kg (198 lb 11.2 oz) Please advise. Ayleen Guzman Pss documented in this encounterOhio State University [facility] Center11-10-2022 Miscellaneous Notes* Telephone Encounter - Cinthya Syed Ma - 03/15/2022 9:21 AM EST Paperwork completed and faxed to [employer]. Cinthya Syed Ma * Telephone Encounter - Zac Linton MD - 03/14/2022 6:49 PM EST Form done Zac Linton MD * Telephone Encounter - Cinthya Syed Ma - 02/27/2022 3:10 PM EDT Pt daughter Breanna Jackman dropped of [facility] paperwork that she needs completed. She states that forms will filled out last year for her. She states it is for intermittent leave if she needs to take mother to appts or care for her. Fax to [employer], ATTN: Shamika Nunez at [phone]. Cinthya Syed Ma documented in this encounterOhio State University [facility] Center11-09-2022 History of Present illness Narrative* Jocy Ceja RN - 03/14/2022 10:35 AM EST Pts called and is notified of providers message. He voices understanding. Jocy Ceja RN * Shankar Palacio APRN.CNP - 03/13/2022 2:32 PM EST Order for labs to be completed prior to seeing Dr. Linton placed. Shankar Palacio APRN.REELING MACHINE OPERATOR * Chen CHAWLA - 03/13/2022 10:11 AM EST POPULATION HEALTH NAVIGATION OUTREACH Action/FYI PROVIDER:PENDED ALBUMIN Scheduled f/u appt & eye exam declined flu shot. Pt identified by name and : YES, via phone Outreach Outcome/Action Spoke to patient or caregiver: Patient scheduled Did you use a PCP flex slot to schedule this appointment? No Reason for Outreach Care Gap or Scheduling/Wellness visits Payer: Payor: [employer] MEDICARE / Plan: [employer] CLIPPATE PLUS / Product Type: HMO / Care Gap Reviewed:: Follow-up appointment Controlling Blood Pressure Diabetic Eye Exam Nephropathy (Albumin/Creatinine) Urine Flu vaccine Reminder: Reminder note to check Health Maintenance for items below Health Maintenance items due: COVID-19 VACCINE(1) Never done DILATED RETINAL EXAM Never done DIABETIC FOOT EXAM Never done BP CONTROLLED (<130/80) Never done SHINGRIX VACCINE(1 of 2) Never done BONE DENSITY Never done ADVANCE DIRECTIVE DISCUSSION Never done DEPRESSION ASSESSMENT Never done PNEUMOCOCCAL: 65+(2 - PCV) due on 06/24/2021 URINE ALBUMIN:CREATININE RATIO due on 10/17/2021 INFLUENZA(1) Never done Message Sent to Practice: Yes Navigation Signature: Chen CHAWLA March 13, 2022 10:11 AM documented in this encounterOhio State University [facility] Center10-21-2022 History of Present illness Narrative* Nesha Florentino MA - 02/23/2022 1:02 PM EDT POPULATION HEALTH NAVIGATION OUTREACH Action/FYI Declined scheduling at this time Pt identified by name and : YES, via phone Outreach Outcome/Action Spoke to patient or caregiver: Patient declined Did you use a PCP flex slot to schedule this appointment? N/A Reason for Outreach Care Gap or Scheduling/Wellness visits Payer: Payor: [employer] MEDICARE / Plan: [employer] CLIPPATE PLUS / Product Type: HMO / Care Gap Reviewed:: Follow-up appointment Reminder: Reminder note to check Health Maintenance for items below Health Maintenance items due: DILATED RETINAL EXAM Never done DIABETIC FOOT EXAM Never done BP CONTROLLED (<130/80) Never done SHINGRIX VACCINE(1 of 2) Never done BONE DENSITY Never done ADVANCE DIRECTIVE DISCUSSION Never done DEPRESSION ASSESSMENT Never done PNEUMOCOCCAL: 65+(2 - PCV) due on 06/24/2021 URINE ALBUMIN:CREATININE RATIO due on 10/17/2021 INFLUENZA(1) Never done Message Sent to Practice: No Navigation Signature: Nesha Florentino, Population Health Navigator February 23, 2022 1:03 PM documented in this encounterOhio State University [facility]09-22-2022 Miscellaneous Notes* Telephone Encounter - Shankar Palacio APRN.CNP - 01/25/2022 1:03 PM EDT The following approved medication requests have been transmitted electronically. Requested Prescriptions Pending Prescriptions Disp Refills ergocalciferol 50,000 unit capsule (VITAMIN D2, DRISDOL) 12 capsule 3 Sig: Take 1 capsule by mouth one time a week. Shankar Palacio APRN.CNP * Telephone Encounter - Zainab Pickett - 01/25/2022 10:19 AM EDT Patient has been identified by name and date of : Yes Requested Prescriptions Pending Prescriptions Disp Refills ergocalciferol 50,000 unit capsule (VITAMIN D2, DRISDOL) 12 capsule 3 Sig: Take 1 capsule by mouth one time a week. RX INSTRUCTIONS: Patient aware RX will be sent to pharmacy. No need to notify patient. [facility] documented in this encounterOhio State University [facility] Center08-15-2022 Miscellaneous Notes* Telephone Encounter - Jayla Jaeger Ma - 12/18/2021 2:49 PM EDT Call to pt, spouse answered phone. Spouse woke up patient notifying her of this VIN's message. Pt/Spouse understood, will be in tomorrow morning to complete. Jayla Jaeger Ma * Telephone Encounter - Zac Linton MD - 12/18/2021 2:08 PM EDT OK to get UA/culture as ordered Zac Linton MD * Telephone Encounter - Guillermina Ordonez RN - 12/18/2021 11:07 AM EDT Protocol recommends patient to see provider within 24 hours. No appt made at this time. Patient requesting advise or lab orders by phone if possible. Will come in for appt if advised. Please call patient. Thank you. Reason for Disposition [1] Discomfort (pain, burning or stinging) when passing urine AND [2] female Age > 50 years Answer Assessment - Initial Assessment Questions . Answer Assessment - Initial Assessment Questions Patient reports she gets recurrent UTIs and believes she is getting another one again. States recently in October she was treated for a UTI with macrobid and she improved, however symptoms returned about 4-5 days ago again. States was in ER in August due to UTI as well. Uses [facility] in [place]. 1. SEVERITY: moderate pain and burning with urination, urinary frequency 2. FREQUENCY: multiple 3. PATTERN: pain present every time urinates 4. ONSET: 4-5 days ago 5. FEVER: no 6. PAST UTI: yes in October 7. CAUSE: believes it is a UTI 8. OTHER SYMPTOMS:denies fever, flank pain, vaginal discharge, genital sores, or visible blood in urine) 9. : no Protocols used: Urinary Bxqgcupb-CLTSD-CX, Urination Pain - Xeeglg-[id number]-QO documented in this encounterOhio State University [facility]08-15-2022 Miscellaneous Notes* Telephone Encounter - Guillermina Ordonez RN - 12/18/2021 11:23 AM EDT See other triage note 12/18/21. Guillermina Ordonez RN * Telephone Encounter - Zainab Banegas [facility] [place] - 12/18/2021 9:43 AM EDT Patient calling to say she has a UTI with burning and frequency of urination, also pain . She is asking for advice as she states she just had this in October and it seems to reoccur quite frequently. She can be reached at [phone]. Thank you documented in this encounterOhio State University [facility]07-25-2022 Miscellaneous Notes* Telephone Encounter - Shankar Palacio APRN.CNP - 11/27/2021 11:19 AM EDT The following approved medication requests have been transmitted electronically. Pending Prescriptions Disp Refills SERTRALINE 100 MG TABLET 90 tablet 1 Sig: Take 0.5 tablets by mouth once daily. MARIA INES: No Shankar Palacio APRN.CNP * Telephone Encounter - Tess Keys MA - 11/27/2021 11:12 AM EDT Patient has been identified by name and date of : Yes Pending Prescriptions Disp Refills SERTRALINE 100 MG TABLET 90 tablet 1 Sig: Take 0.5 tablets by mouth once daily. MARIA INES: No RX INSTRUCTIONS: Patient aware RX will be sent to pharmacy. No need to notify patient. Tess Keys MA Patient has been identified by name and date of : Yes Pending Prescriptions Disp Refills SERTRALINE 100 MG TABLET 90 tablet 1 Sig: Take 0.5 tablets by mouth once daily. MARIA INES: No RX INSTRUCTIONS: Patient aware RX will be sent to pharmacy. No need to notify patient. Tess Keys MA Ino: 06/2021 No appointment scheduled Last refill: 03/2021 * Telephone Encounter - Citlali Chawla - 11/27/2021 11:00 AM EDT Patient has been identified by name and date of : Yes Pending Prescriptions Disp Refills SERTRALINE 100 MG TABLET 90 tablet 1 Sig: Take 0.5 tablets by mouth once daily. MARIA INES: No RX INSTRUCTIONS: Patient aware RX will be sent to pharmacy. No need to notify patient. Citlali Galvan Pss documented in this encounterOhio State University [facility]07-21-2022 Miscellaneous Notes* Telephone Encounter - Cinthya Syed Ma - 11/23/2021 10:50 AM EDT The following approved medication requests have been transmitted electronically. Signed Prescriptions Disp Refills nitrofurantoin monohydrate and macrocrystal (MACROBID) 100 mg capsule 10 capsule 0 Sig: Take 1 capsule by mouth twice daily for 5 days. MARIA INES: No Authorizing Provider: ZAC LINTON Ma * Telephone Encounter - Zac Linton MD - 11/23/2021 10:45 AM EDT OK for Macrobid as ordered Zac Linton MD * Telephone Encounter - Ayleen Ojeda - 11/23/2021 10:13 AM EDT Pts spouse called stating she is having UTI symptoms like she did last month. He was wanting to have a prescription refill of the medication given in UC sent to [facility]. documented in this encounterOhio State University [facility]07-07-2022 Miscellaneous Notes* Telephone Encounter - Shankar Palacio APRN.CNP - 11/09/2021 12:49 PM EDT The following approved medication requests have been transmitted electronically. Pending Prescriptions Disp Refills FENOFIBRATE 160 MG TABLET 90 tablet 3 Sig: Take 1 tablet by mouth once daily. MARIA INES: No Shankar Palacio APRN.CNP * Telephone Encounter - Ayleen Guzman Pss - 11/09/2021 12:23 PM EDT Pharmacy verified in Epic Patient has been identified by name and date of : Yes Patient aware RX will be sent to pharmacy. No need to notify patient. Spouse phones for refill(s): Pending Prescriptions Disp Refills FENOFIBRATE 160 MG TABLET 90 tablet 1 Sig: Take 1 tablet by mouth once daily. MARIA INES: No Date of last office visit : 06/07/2021 Labs-09/12/21 Date of next office visit : Visit date not found Last 2 Encounter Wt Readings: Date: Wt: 10/13/2021 90.4 kg (199 lb 6.4 oz) 06/07/2021 90.1 kg (198 lb 11.2 oz) Please advise. Ayleen Ivonne Guzman Pss documented in this encounterOhio State University [facility]06-15-2022 Miscellaneous Notes* Telephone Encounter - Jayne Castillo LPN - 10/18/2021 3:44 PM EDT Patient is feeling better and verbalized understanding of instructions given.Jayne Castillo LPN * Telephone Encounter - Donna Silva - 10/16/2021 3:39 PM EDT Left message for patient to return call. Donna Silva * Telephone Encounter - Lindsay Tena LPN - 10/15/2021 12:50 PM EDT Attempted to contact patient, no answer, voicemail box full. Will need to try at another time * Telephone Encounter - Maryan Keys APRN.REELING MACHINE OPERATOR - 10/15/2021 12:35 PM EDT Please make sure her urinary symptoms are getting better. The antibiotic is the correct one for thebacteria and if symptoms are worsening follow up with PCP. documented in this encounterOhio State University [facility]06-10-2022 History of Present illness Narrative* Maryan Keys APRN.CNP - 10/13/2021 12:08 PM EDT CC: Patient presents with: UTI: painful urination x2 weeks HPI Tarik Baker is a 76 year old female who presents with complaint of possible UTI. These symptoms have been present for 14 days. Associated symptoms: burning and frequency Denies: backpain, pressure, fever, chills, sweats, abdominal pain and flank pain Treatments: nothing The ROS was otherwise negative. PMH, Medications, labs, allergies, and recent past visits with PCP were reviewed and updated as able. PHYSICAL EXAM: BP 128/92 Pulse 95 Temp 36.7 C (98.1 F) Resp 20 Wt 90.4 kg (199 lb 6.4 oz) SpO2 96% BMI33.18 kg/m General: Well appearing and alert CV: Regular rate and rhythm without obvious murmur Lungs: clear to auscultation bilaterally Back: straight and symmetric Abdomen: soft, nontender, nondistended PAST MEDICAL HISTORY Diagnosis Date Diabetes (HCC) History of cardiovascular stress test 12/2020 ef 60, no ischemia PAST SURGICAL HISTORY Procedure Laterality Date TUBAL LIGATION HX ALLERGIES Prednisone MEDICATIONS nitrofurantoin monohydrate and macrocrystal (MACROBID) 100 mg capsule Take 1 capsule by mouth twicedaily for 5 days. insulin NPH injection (HumuLIN N,NovoLIN N) 24 units in the am and 24 units in the pm. aspirin, enteric coated (ASPIRIN, ENTERIC COATED) 325 mg EC tablet Take 1 tablet by mouth once daily. Take with food. levothyroxine (SYNTHROID) 150 mcg tablet Take 1 tablet by mouth once daily. enalapril (VASOTEC) 20 mg tablet Take 1 tablet by mouth once daily. Fenofibrate (LOFIBRA) 160 mg tablet Take 1 tablet by mouth once daily. sertraline (ZOLOFT) 100 mg tablet Take 0.5 tablets by mouth once daily. ergocalciferol 50,000 unit capsule (VITAMIN D2, DRISDOL) Take 1 capsule by mouth one time a week. multivitamin with minerals (MULTIPLE VITAMINS 55 PLUS ORAL) Take 1 capsule by mouth once daily. Ascorbic Acid (VITAMIN C) 100 mg tablet ZINC ORAL Take by mouth. FAMILY HISTORY Problem Relation Age of Onset No Known Problems Mother No Known Problems Father No Known Problems Maternal Grandmother No Known Problems Maternal Grandfather No Known Problems Paternal Grandmother No Known Problems Paternal Grandfather Social History Tobacco Use Smoking status: Never Smoker Smokeless tobacco: Never Used Vaping Use Vaping Use: Never used Substance Use Topics Alcohol use: Never Drug use: Never ASSESSMENT/PLAN: 1. Painful urination - ICD9: 788.1, ICD10: R30.9 acute - Send urine for culture - Begin treatment with Macrobid 100 mg BID for 5 days - UA DIP, URINE (POC) - URINE CULTURE Prescription instructions reviewed with patient as applicable. Potential red flag symptoms discussed with the patient. Reviewed appropriate action plan to take if red flag symptoms occur. Patient agreeable to treatment plan. Maryan Keys APRN.BAILEY documented in this encounterOhio State University [facility]06-10-2022 Instructions* Patient Instructions* Maryan Keys APRN.CNP - 10/13/2021 12:08 PM EDT BLADDER INFECTION OVERVIEW Bladder infections are one of the most common infections, causing symptoms of burning with urination and needing to urinate frequently. A bladder infection is a type of urinary tract infection (UTI).Bladder infections are more common is women than men. Most women have an uncomplicated bladder infection that is easily treated with a short course of antibiotics. In men, bladder infections may alsoaffect the prostate gland, and a longer course of treatment may be needed. BLADDER INFECTION CAUSES The urinary tract includes the kidneys (which filter urine), ureters (the tube that carries urine from the kidneys to the bladder), the bladder (which stores urine), and urethra (the tube that carries urine out of the bladder). Bacteria do not normally live in these areas. However, bacteria normally live close to the urethra in women and men who are not circumcised. Bladder infections occur when bacteria travel up the urethra into the bladder. Factors that increase the risk of developing a bladder infection include: Vaginal sex Use of spermicides History of past bladder infections Diabetes In men, not being circumcised or having anal sex increase the risk of bladder infections. BLADDER INFECTION SYMPTOMS The typical symptoms of a bladder infection include: Pain or burning when urinating Frequent need to urinate Urgent need to urinate Blood in the urine Fever, back pain, nausea, or vomiting are not common symptoms of a bladder infection, but can occurin people with a kidney infection (pyelonephritis). If you have these symptoms, you should call your doctor or nurse immediately. Is it a bladder infection or something else? Burning with urination can also occur in people with vaginitis (eg, yeast infection) or urethritis (inflammation of the urethra). For this reason, it is important to call your healthcare provider before assuming you have a bladder infection. BLADDER INFECTION DIAGNOSIS Simple bladder infections are usually diagnosed based upon your symptoms alone. However, most patients, especially those who have bladder infection symptoms for the first time, should see a healthcare provider for urine testing. Urine culture A urine culture is a test that uses a sample of urine to try and grow bacteria in a laboratory. It usually requires about 48 hours to get results. However, a urine culture is not always required to diagnose a bladder infection. Urine culture is often recommended if: You have never had a bladder infection before You have symptoms that are not typical for bladder infection You have had resistant bladder infections before You have frequent bladder infections You do not begin to feel better within 24 to 48 hours after starting antibiotics You are BLADDER INFECTION TREATMENT Bladder infection In young, healthy adolescents and adults with a bladder infection, the usual treatment includes a three to seven day course of antibiotics. The typical drugs chosen are: trimethoprim-sulfamethoxazole (Bactrim ), nitrofurantoin (Macrobid ), ciprofloxacin (Cipro ) or levofloxacin (Levaquin ). In men, the infection may involve your prostate gland and treatment is usually given for at least 7days. Your symptoms should begin to resolve within one day after starting treatment. It is important to take the full course of antibiotics to completely eliminate the infection. If your symptoms persist for more than two or three days after starting treatment, call your healthcare provider. If needed, you can take a prescription medication that numbs the bladder and urethra (phenazopyridine [Pyridium ]) to reduce the burning pain of some UTIs. A similar medication is available without aprescription (eg, Uristat). Both medications change the color of the urine (usually blue or orange)and can interfere with laboratory testing. You should not take these medications for more than 48 hours due to the risk of side effects. These medications do not treat the infection and must be takenalong with an antibiotic. Some providers recommend drinking more fluids while treating bladder infections to help flush bacteria from the bladder. Others believe that drinking more fluids may dilute the antibiotic in the bladder and make the medication less effective. No studies have been performed to address this issue. There are also no good studies on the effectiveness of cranberry juice for treating a bladder infection; we do not recommend using cranberry juice to treat bladder infections. Follow-up care Follow-up testing is not needed in healthy, young men or women with a bladder infection if symptoms resolve. women are usually asked to have a repeat urine culture one to two weeks after treatment has ended to make sure the bacteria are no longer in the urine. RECURRENT BLADDER INFECTIONS Bladder infections versus other causes Some adults, especially women, develop bladder infections frequently. In this case, it is important to confirm that your symptoms (eg, pain or burning, frequency, and urgency) are caused by a bladder infection. Symptoms are usually similar from one infection to another. The best way to confirm an infection is to have a urine culture. If your urine culture is negative for infection, other causes of pain, burning, and frequency should be investigated. There is no reason to take antibiotics if your urine culture is negative. Need for further testing If you continue to develop bladder infections, you may require further testing. If you continue to notice blood in your urine after your bladder infection has cleared, you should have further testing. Preventing recurrent UTIs Women with recurrent urinary tract infections may be advised to take steps to prevent bladder infections, including one or more of the following: Changes in control Women who develop frequent bladder infections and use spermicides, particularly those who also use a diaphragm, may be encouraged to use an alternate method of control. Cranberry products Taking cranberry juice or cranberry tablets has been promoted as one way to helpprevent frequent bladder infections. However, this has not been proven. Drinking more fluid and urinating after intercourse Although studies have not proven that drinking more fluids or urinating soon after intercourse can prevent infection, some healthcare providers recommend these measures since they are not harmful. Drinking more fluid may help to wash out bacteria that enter the bladder. Postmenopausal women Postmenopausal women who develop recurrent bladder infections may benefit fromusing vaginal estrogen. Vaginal estrogen is available in a flexible ring that is worn in the vaginafor three months (eg, Estring ), a small tablet (Vagifem ), or a cream (eg, Premarin or Estrace ). Vaginal estrogen is discussed in more detail in a separate topic review. Antibiotics A preventive antibiotic treatment may be recommended if you repeatedly develop bladder infections and have not responded to other preventive measures. Antibiotics are highly effective in preventing recurrent bladder infections and can be taken in several different ways. Preventive antibiotic You can take a low dose of an antibiotic once per day or three times per weekfor six months to several years. Antibiotics following intercourse In women who develop urinary tract infections after sex, taking asingle low dose antibiotic after intercourse can help to prevent bladder infections. Self-treatment A plan to begin antibiotics at the first sign of a bladder infection may be recommended in some situations. Before starting this regimen, it is important that you have had testing (urine cultures) to confirm that your symptoms are caused by a bladder infection; some people have symptoms of a bladder infection but do not actually have an infection. documented in this encounterOhio State University [facility]05-11-2022 Miscellaneous Notes* Telephone Encounter - Greer Simmons RN - 09/13/2021 4:41 PM EDT Patient notified of results and provider's instructions. Patient verbalizes understanding. Greer Simmons RN * Telephone Encounter - Jayla Jaeger Ma - 09/13/2021 4:32 PM EDT Tried calling pt but phone continuously rang until message received stating your constitution party could answer, please try calling back, with call ending. Will try calling again later. If pt calls back, please relay information below from PCP. Jayla Jaeger Ma * Telephone Encounter - Zac Linton MD - 09/13/2021 4:25 PM EDT Please notify patient that her lab results last were were all OK. Stay on the same medications, andshe should follow up in 3 months Zac Linton MD documented in this encounterOhio State University [facility]05-03-2022 History of Present illness Narrative* Mana Estevez MA - 09/05/2021 1:56 PM EDT POPULATION HEALTH NAVIGATION OUTREACH Action/FYI Called and left a message to call [phone], to discuss health maintenance items that are due. PCP appt: 3 mos follow up per last ov note on 06/07/21 My chart activation: inactive Advance directive: needs info HM due: 3 mos follow up in September MANISHA A1C and lipid- already ordered My chart and AD Pt identified by name and : NO Outreach Outcome/Action Unable to reach patient: Left message Reason for Outreach Care Gap or Scheduling/Wellness visits Payer: Payor: [employer] MEDICARE / Plan: [employer] / Product Type: HMO / Care Gap Reviewed:: Follow-up appointment Controlling Blood Pressure Diabetic Eye Exam HBA1C Reminder: Reminder note to check Health Maintenance for items below Health Maintenance items due: DILATED RETINAL EXAM Never done DIABETIC FOOT EXAM Never done BP CONTROLLED (<130/80) Never done SHINGRIX VACCINE(1 of 2) Never done BONE DENSITY Never done ADVANCE DIRECTIVE DISCUSSION Never done DEPRESSION SCREENING due on 06/21/2021 HBA1C due on 08/31/2021 Message Sent to Practice: No Navigation Signature: Mana Estevez MA September 05, 2021 1:58 PM documented in this encounterOhio State University [facility] Center08-04-20[place] [address] HEALTH INFORMATION MANAGEMENT CONSULTATION Patient: DORENE BAKERANNE MICHAEL D.O. [id number] [age] F Status: DIS Oneal SDCENTRAL 2069-A DATE OF CONSULTATION: The patient admitted to the hospital secondary to just not feeling right. She says she has been feeling right, so she went to the [facility], was getting blood pressure checks, notes to be high, so they blood pressure cuff and then they checked it at home and they noticed that was it high there also. Then, she just had some little stomach aches, some queasiness. And she was at the store and just did not feel right at the store, so they decided to come in the emergency room. The wanted to wait for another day because they were moving, but she just said I just do not feel right, things need to be checked out, so she came into the emergency room. In the emergency room, they noticed that the troponin was slightly elevated, therefore she was admitted to the hospital. An EKG demonstrated sinus rhythm. There was no ST and T-wave changes appreciated. FAMILY HISTORY: She is 75. All her relatives have . Nobody has had a headache, dialysis. No history of myocardial infarction or bypass. MEDICINES: 1. Novolin. 2. Synthroid. 3. Lofibra, which is fenofibrate. She is under a lot of stress at this time, because they are in the process of moving to [place] and actually today is the moving day. And just under a lot of stress. She has a daughter in [place], they just want to be close to the daughter in [place]. PHYSICAL EXAMINATION: Symmetrical face. Tongue does not deviate. No carotid bruit. No lymphadenopathy. No jugular venous distention. HEART: No murmur, rubs, clicks, or gallops. ABDOMEN: Abdominal cavity is slightly protuberant, soft, nontender. EXTREMITIES: 2/4 femoral or radial, 2/4 posterior tibial, popliteal 2/4. EKG sinus rhythm with occasional PVCs. Troponin 0.01. I feel at this time, we should do a stress test. She does not have angina. There was no ST and T-wave changes to suggest need for heart catheterization. I know she has diabetes. We will go ahead and do a stress test first. Report#: Dict ID [id number] / Int ID [id number] 12/08/20 0720 ANNE CRISOSTOMO D.O. cc: ANNE CRISOSTOMO D.O. << Signature on File>> Reported By: ANNE CRISOSTOMO D.O. Signed By: ANNE CRISOSTOMO D.O. Tests performed at: [place] [address] [facility] Instructions* Patient Instructions* Kassi Young MD - 11/07/2020 9:10 PM EDT Discussed with the patient the need to ADD more fiber in his diet, cutback total carbs & cut out nighttime snacks. Your metabolism in the morning is the fastest it will be all day you actually burn calories at a higher rate. In the evening your body is preparing to go to sleep which is similar to a state of hibernation. When most of your vital function slow down. That's why the calories eatenlater in the day are stored at a higher caloric rate. Thus the saying, Eat like a Hector for breakfast, a Brady for lunch and a Pauper for dinner. I suggested the patient incorporate more soluble fiber in his diet. This includes apples, pears, plums/prunes, oat bran (the more processed the least fiber. Steel cut/rolled oats have the most fiber per serving) and barley which is easily added to soup. For every 5 g of fiber per serving you can subtract 5 g of carbs. Goal is 25 - 40 Grams of Fiber every day. Suggest adding 5 grams of Fiber / dayweekly. Increase fiber dose cause more gas, as a by-product of the bacteria in your gut digesting it. documented in this encounterOhio State University [facility] Center06-14-2021 NoteHNO ID: [id number] Author: Kassi Young MD Service: ? Author Type: Physician Type: Progress Notes Filed: 11/07/2020 9:10 PM Note Text: Kassi Young MD [facility] [address] [place] [id number] SUBJECTIVE Tarik Baker is a 75 year old female who presents with Patient presents with: Hypothyroidism Hyperlipidemia Prescription Refills: did labs this am Diabetes Obesity Vit D Def . The patient feels her general health is good. She denies any high or low blood sugar symptoms. She rarely misses doses of her medication. She does not routinely check her blood pressure. Her weight has been stable. She denies any major new changes in breathing, digestion, heart beating, bowel or bladder function. There are no exam notes on file for this visit. HPI HPI Review of Systems Constitutional: Negative for chills, diaphoresis, fever, malaise/fatigue and weight loss. Eyes: Negative for blurred vision, double vision and redness. Respiratory: Negative for cough, shortness of breath and wheezing. Cardiovascular: Negative for chest pain, palpitations, orthopnea and leg swelling. Gastrointestinal: Negative for abdominal pain, blood in stool, constipation, diarrhea, heartburn, melena, nausea and vomiting. Genitourinary: Negative for frequency and urgency. Musculoskeletal: Negative for joint pain and myalgias. Skin: Negative for itching and rash. Neurological: Negative for tingling, sensory change and headaches. Endo/Heme/Allergies: Negative for polydipsia. Does not bruise/bleed easily. PAST MEDICAL HISTORY Diagnosis Date - Diabetes (HCC) PAST SURGICAL HISTORY Procedure Laterality Date - TUBAL LIGATION HX Social History Tobacco Use - Smoking status: Never Smoker - Smokeless tobacco: Never Used Vaping Use - Vaping Use: Never used Substance Use Topics - Alcohol use: Never - Drug use: Never FAMILY HISTORY Problem Relation Age of Onset - No Known Problems Mother - No Known Problems Father - No Known Problems Maternal Grandmother - No Known Problems Maternal Grandfather - No Known Problems Paternal Grandmother - No Known Problems Paternal Grandfather The ROS, medical, surgical, family, and social history were reviewed by Kassi Young MD ALLERGIES Allergen Reactions - Prednisone Other: See Comments Sugar went over 900 Other reaction(s): Other (See Comments) Sugar went over 900 Current Outpatient Medications Medication Sig - insulin NPH injection (HumuLIN N,NovoLIN N) Inject 27 Units subcutaneously twice daily. - aspirin-calcium carbonate 81 mg-300 mg calcium(777 mg) tab Take 81 mg by mouth once daily. - multivitamin with minerals (MULTIPLE VITAMINS 55 PLUS ORAL) Take 1 capsule by mouth once daily. - B auqgbb-K-exvro-zinc-cup pierce-E 500 mg-400 mcg- 23.9 mg-3 mg tab Take by mouth. - Ascorbic Acid (VITAMIN C) 100 mg tablet - ZINC ORAL Take by mouth. - ergocalciferol 50,000 unit capsule (VITAMIN D2, DRISDOL) Take 1 capsule by mouth one time a week. - levothyroxine (SYNTHROID) 150 mcg tablet Take 1 tablet by mouth once daily. - Fenofibrate (LOFIBRA) 160 mg tablet Take 1 tablet by mouth once daily. - sertraline (ZOLOFT) 100 mg tablet Take 1 tablet by mouth once daily. (Patient not taking: Reported on 10/17/2020 ) - Ascorbic Acid 100 mg tablet Take 500 mg by mouth once daily. (Patient not taking: Reported on 10/17/2020 ) - calcium carbonate/vitamin D2 (CALCIUM + VITAMIN D ORAL) (Patient not taking: Reported on 10/17/2020 ) No current facility-administered medications for this visit. OBJECTIVE BP 130/90 (BP Site: Left Arm, BP Position: Sitting) Pulse (!) 55 Temp 36.2 ?C (97.2 ?F) Resp 12 Ht 5' 5 (1.651 m) Wt 199 lb (90.3 kg) SpO2 99% BMI 33.12 kg/m? BMI 33.12 kg/(m2) Physical Exam Vitals and nursing note reviewed. Constitutional: General: She is awake. She is not in acute distress. Appearance: Normal appearance. She is well-developed and well-groomed. She is obese. cachecticShe is not ill-appearing, toxic-appearing or diaphoretic. Interventions: She is not intubated. HENT: Head: Normocephalic and atraumatic. Salivary Glands: Right salivary gland is not diffusely enlarged or tender. Left salivary gland is not diffusely enlarged or tender. Right Ear: External ear normal. Left Ear: External ear normal. Mouth/Throat: Mouth: Mucous membranes are moist. Eyes: General: Lids are normal. Vision grossly intact. No scleral icterus. Right eye: No foreign body, discharge or hordeolum. Left eye: No foreign body, discharge or hordeolum. Conjunctiva/sclera: Conjunctivae normal. Right eye: Right conjunctiva is not injected. No exudate or hemorrhage. Left eye: Left conjunctiva is not injected. No exudate or hemorrhage. Neck: Thyroid: No thyroid mass, thyromegaly or thyroid tenderness. Vascular: No carotid bruit or JVD. Trachea: No trach (more content not included)...[facility] 10-17-2020 History of Present illness Narrative* Kassi Young MD - 10/17/2020 9:37 AM EDT Images from the original note were not included[place] [address] SUBJECTIVE Tarik Baker is a 75 year old female who presents with Patient presents with: Hypothyroidism Hyperlipidemia Prescription Refills: did labs this am Diabetes Obesity Vit D Def . The patient feels her general health is good. She denies any high or low blood sugar symptoms. She rarely misses doses of her medication. She does not routinely check her blood pressure. Her weighthas been stable. She denies any major new changes in breathing, digestion, heart beating, bowel or bladder function. There are no exam notes on file for this visit. HPI HPI Review of Systems Constitutional: Negative for chills, diaphoresis, fever, malaise/fatigue and weight loss. Eyes: Negative for blurred vision, double vision and redness. Respiratory: Negative for cough, shortness of breath and wheezing. Cardiovascular: Negative for chest pain, palpitations, orthopnea and leg swelling. Gastrointestinal: Negative for abdominal pain, blood in stool, constipation, diarrhea, heartburn, melena, nausea and vomiting. Genitourinary: Negative for frequency and urgency. Musculoskeletal: Negative for joint pain and myalgias. Skin: Negative for itching and rash. Neurological: Negative for tingling, sensory change and headaches. Endo/Heme/Allergies: Negative for polydipsia. Does not bruise/bleed easily. PAST MEDICAL HISTORY Diagnosis Date Diabetes (HCC) PAST SURGICAL HISTORY Procedure Laterality Date TUBAL LIGATION HX Social History Tobacco Use Smoking status: Never Smoker Smokeless tobacco: Never Used Vaping Use Vaping Use: Never used Substance Use Topics Alcohol use: Never Drug use: Never FAMILY HISTORY Problem Relation Age of Onset No Known Problems Mother No Known Problems Father No Known Problems Maternal Grandmother No Known Problems Maternal Grandfather No Known Problems Paternal Grandmother No Known Problems Paternal Grandfather The ROS, medical, surgical, family, and social history were reviewed by Kassi Young MD ALLERGIES Allergen Reactions Prednisone Other: See Comments Sugar went over 900 Other reaction(s): Other (See Comments) Sugar went over 900 Current Outpatient Medications Medication Sig insulin NPH injection (HumuLIN N,NovoLIN N) Inject 27 Units subcutaneously twice daily. aspirin-calcium carbonate 81 mg-300 mg calcium(777 mg) tab Take 81 mg by mouth once daily. multivitamin with minerals (MULTIPLE VITAMINS 55 PLUS ORAL) Take 1 capsule by mouth once daily. B trpirv-H-oivll-zinc-cup pierce-E 500 mg-400 mcg- 23.9 mg-3 mg tab Take by mouth. Ascorbic Acid (VITAMIN C) 100 mg tablet ZINC ORAL Take by mouth. ergocalciferol 50,000 unit capsule (VITAMIN D2, DRISDOL) Take 1 capsule by mouth one time a week. levothyroxine (SYNTHROID) 150 mcg tablet Take 1 tablet by mouth once daily. Fenofibrate (LOFIBRA) 160 mg tablet Take 1 tablet by mouth once daily. sertraline (ZOLOFT) 100 mg tablet Take 1 tablet by mouth once daily. (Patient not taking: Reported on 10/17/2020 ) Ascorbic Acid 100 mg tablet Take 500 mg by mouth once daily. (Patient not taking: Reported on 10/17/2020 ) calcium carbonate/vitamin D2 (CALCIUM + VITAMIN D ORAL) (Patient not taking: Reported on 10/17/2020 ) No current facility-administered medications for this visit. OBJECTIVE BP 130/90 (BP Site: Left Arm, BP Position: Sitting) Pulse (!) 55 Temp 36.2 C (97.2 F) Resp 12 Ht 5' 5 (1.651 m) Wt 199 lb (90.3 kg) SpO2 99% BMI 33.12 kg/m BMI 33.12 kg/(m^2) Physical Exam Vitals and nursing note reviewed. Constitutional: General: She is awake. She is not in acute distress. Appearance: Normal appearance. She is well-developed and well-groomed. She is obese. cachecticShe is not ill-appearing, toxic-appearing or diaphoretic. Interventions: She is not intubated. HENT: Head: Normocephalic and atraumatic. Salivary Glands: Right salivary gland is not diffusely enlarged or tender. Left salivary gland is not diffusely enlarged or tender. Right Ear: External ear normal. Left Ear: External ear normal. Mouth/Throat: Mouth: Mucous membranes are moist. Eyes: General: Lids are normal. Vision grossly intact. No scleral icterus. Right eye: No foreign body, discharge or hordeolum. Left eye: No foreign body, discharge or hordeolum. Conjunctiva/sclera: Conjunctivae normal. Right eye: Right conjunctiva is not injected. No exudate or hemorrhage. Left eye: Left conjunctiva is not injected. No exudate or hemorrhage. Neck: Thyroid: No thyroid mass, thyromegaly or thyroid tenderness. Vascular: No carotid bruit or JVD. Trachea: No tracheal tenderness, tracheostomy or tracheal deviation. Cardiovascular: Rate and Rhythm: Normal rate and regular rhythm. Pulses: Carotid pulses are 2+ on the right side and 2+ on the left side. Radial pulses are 2+ on the right side and 2+ on the left side. Heart sounds: Normal heart sounds. No murmur heard. No systolic murmur is present. No diastolic murmur is present. No friction rub. No gallop. Pulmonary: Effort: Pulmonary effort is normal. No tachypnea, bradypnea, accessory muscle usage, prolonged expiration, respiratory distress or retractions. She is not intubated. Breath sounds: Normal breath sounds. No stridor. No decreased breath sounds, wheezing, rhonchi or rales. Abdominal: General: There is no distension. Musculoskeletal: General: No swelling, tenderness, deformity or signs of injury. Normal range of motion. Cervical back: Normal range of motion and neck supple. No edema, erythema, signs of trauma, rigidity, torticollis or tenderness. No muscular tenderness. Right lower leg: No edema. Left lower leg: No edema. Lymphadenopathy: Head: Right side of head: No submental, submandibular, tonsillar, preauricular or posterior auricular adenopathy. Left side of head: No submental, submandibular, tonsillar, preauricular or posterior auricular adenopathy. Cervical: No cervical adenopathy. Right cervical: No superficial or posterior cervical adenopathy. Left cervical: No superficial or posterior cervical adenopathy. Upper Body: Right upper body: No supraclavicular adenopathy. Left upper body: No supraclavicular adenopathy. Skin: General: Skin is warm and dry. Coloration: Skin is not ashen, cyanotic, jaundiced, mottled, pale or sallow. Findings: No abrasion, abscess, acne, bruising, burn, ecchymosis, erythema, signs of injury, lesionor rash. Nails: There is no clubbing. Neurological: General: No focal deficit present. Mental Status: She is alert and oriented to person, place, and time. Mental status is at baseline. She is not lethargic. Cranial Nerves: No cranial nerve deficit, dysarthria or facial asymmetry. Sensory: No sensory deficit. Motor: No weakness, atrophy, abnormal muscle tone or seizure activity. Coordination: Coordination normal. Gait: Gait is intact. Gait normal. Deep Tendon Reflexes: Reflexes are normal and symmetric. Reflex Scores: Patellar reflexes are 2+ on the right side and 2+ on the left side. Psychiatric: Attention and Perception: She is attentive. She does not perceive auditory or visual hallucinations. Mood and Affect: Mood and affect normal. Mood is not anxious or depressed. Affect is not labile, blunt, flat or inappropriate. Speech: She is communicative. Speech is not rapid and pressured, delayed, slurred or tangential. Behavior: Behavior normal. Behavior is not agitated, aggressive, hyperactive or combative. Behavioris cooperative. Thought Content: Thought content normal. Thought content is not paranoid or delusional. Thought content does not include homicidal or suicidal ideation. Thought content does not include homicidal or suicidal plan. Cognition and Memory: Memory normal. Cognition is not impaired. Memory is not impaired. Judgment: Judgment normal. Judgment is not impulsive or inappropriate. Labs: No results found for: HB, HCT, WBC, PLT Creatinine Date Value Ref Range Status 10/17/2020 1.06 (H) 0.50 - 0.90 mg/dL Final AST Date Value Ref Range Status 10/17/2020 30 5 - 32 U/L Final ALT Date Value Ref Range Status 10/17/2020 33 5 - 33 U/L Final No results found for: BLSP, BLCUL, TBILI, CBILI, ABORHD, ABSCREEN, WBC, RBC, BILIT%DIG,%DBS Labs: No visits with results within 1 Day(s) from this visit. Latest known visit with results is: No results found for any previous visit. Plan ASSESSMENT/PLAN: 1. Hypothyroidism, acquired - ICD9: 244.9, ICD10: E03.9 (primary diagnosis) - continue current dose of Synthroid 0.150 mg - Follow up in 6 months, the patient's energy and sleep are good. Stable - LEVOTHYROXINE 150 MCG TABLET - TSH BLD 2. Hypertriglyceridemia - ICD9: 272.1, ICD10: E78.1 - good control - Check fasting lipid panel and ALT in 6 months. - Continue current therapy. - FENOFIBRATE 160 MG TABLET 3. Temporal arteritis (HCC) - ICD9: 446.5, ICD10: M31.6 The patient is currently in remission. 4. Type 2 diabetes mellitus with diabetic polyneuropathy, with long-term current use of insulin (HCC) - ICD9: 250.60, 357.2, V58.67, ICD10: E11.42, Z79.4 Controlled. - Continue current medications - LDL goal of <100 - COMP METABOLIC PANEL - HGB A1C - LIPID PANEL BASIC 5. Vitamin D deficiency - ICD9: 268.9, ICD10: E55.9 The patient's vitamin D is low normal 30-100 is normal 80 seems to be optimal. We will encourage her to increase her dosing follow-up 6 months with labs - VITAMIN D 25 HYDROXY 6. Obesity, class I, BMI 30 30 4.9 I CD10: E 66.9 The best thing the patient can do for her weight is to increase fiber in her diet but decreased total carbs. We will include the fiber handout information in the patient education portion so wonder if the patient is on my chart she will be able to see better information follow-up 6 months Kassi Young MD Follow up: No follow-ups on file. [facility] Miscellaneous Notes* Telephone Encounter - Madison Aragon - 09/13/2020 11:39 AM EDT Pharmacy faxed requesting the following refill Refill(s) Requested: Pending Prescriptions Disp Refills LEVOTHYROXINE 150 MCG TABLET 30 tablet 0 Sig: Take 1 tablet by mouth once daily. MARIA INES: No ALLERGIES Allergen Reactions Prednisone Other: See Comments Sugar went over 900 Other reaction(s): Other (See Comments) Sugar went over 900 (home) Last Office Visit Date: 06/21/2020 Last [facility] Visit: Visit date not found Future Appointment: 09/19/2020 The patients preferred pharmacy has been captured for this encounter? yes Request is for script(s) to be escript to pharmacy. Madison Aragon [facility] NoteHNO ID: [id number] Author: Kassi Young Service: ? Author Type: Physician Type: Progress Notes Filed: 06/21/2020 4:11 PM Note Text: [place] [address] SUBJECTIVE Tarik Baker is a 74 year old female who presents with Patient presents with: Hypothyroidism Diabetes Prescription Refills Obesity Vit D Def . The patient feels her general health is good. 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 She rarely misses doses of her medication. She is doing much better on her 70/30 insulin than she was before. She denies high or low blood sugar symptoms. Especially since she has had a recent change in her insulin dosing. She denies any major changes in breathing, digestion, heart beating, bowel or bladder function. There are no exam notes on file for this visit. HPI HPI Review of Systems Constitutional: Negative for chills, diaphoresis, fever, malaise/fatigue and weight loss. Eyes: Negative for blurred vision, double vision and redness. Respiratory: Negative for cough, shortness of breath and wheezing. Cardiovascular: Negative for chest pain, palpitations, orthopnea and leg swelling. Gastrointestinal: Negative for abdominal pain, blood in stool, constipation, diarrhea, heartburn, melena, nausea and vomiting. Genitourinary: Negative for frequency and urgency. Musculoskeletal: Negative for joint pain and myalgias. Skin: Negative for itching and rash. Neurological: Negative for tingling, tremors, sensory change, speech change and headaches. Endo/Heme/Allergies: Negative for polydipsia. Does not bruise/bleed easily. PAST MEDICAL HISTORY Diagnosis Date - Diabetes (HCC) PAST SURGICAL HISTORY Procedure Laterality Date - TUBAL LIGATION HX Social History Tobacco Use - Smoking status: Never Smoker - Smokeless tobacco: Never Used Substance Use Topics - Alcohol use: Never - Drug use: Never FAMILY HISTORY Problem Relation Age of Onset - No Known Problems Mother - No Known Problems Father - No Known Problems Maternal Grandmother - No Known Problems Maternal Grandfather - No Known Problems Paternal Grandmother - No Known Problems Paternal Grandfather The ROS, medical, surgical, family, and social history were reviewed by Kassi Young MD ALLERGIES Allergen Reactions - Prednisone Other: See Comments Sugar went over 900 Other reaction(s): Other (See Comments) Sugar went over 900 Current Outpatient Medications Medication Sig - Fenofibrate (LOFIBRA) 160 mg tablet Take 1 tablet by mouth once daily. - sertraline (ZOLOFT) 100 mg tablet Take 1 tablet by mouth once daily. - insulin NPH injection (HumuLIN N,NovoLIN N) Inject 27 Units subcutaneously twice daily. - aspirin-calcium carbonate 81 mg-300 mg calcium(777 mg) tab Take 81 mg by mouth once daily. - Ascorbic Acid 100 mg tablet Take 500 mg by mouth once daily. - multivitamin with minerals (MULTIPLE VITAMINS 55 PLUS ORAL) Take 1 capsule by mouth once daily. - calcium carbonate/vitamin D2 (CALCIUM + VITAMIN D ORAL) - B vckukd-W-yzjuq-zinc-cup pierce-E 500 mg-400 mcg- 23.9 mg-3 mg tab Take by mouth. - Ascorbic Acid (VITAMIN C) 100 mg tablet - ZINC ORAL Take by mouth. - levothyroxine (SYNTHROID) 150 mcg tablet Take 1 tablet by mouth once daily. - ergocalciferol 50,000 unit capsule (VITAMIN D2, DRISDOL) Take 1 capsule by mouth one time a week. No current facility-administered medications for this visit. OBJECTIVE BP 140/80 (BP Site: Left Arm, BP Position: Sitting) Pulse 94 Temp 36.2 ?C (97.1 ?F) Resp 12 Ht 5' 5 (1.651 m) Wt 199 lb (90.3 kg) SpO2 98% BMI 33.12 kg/m? BMI 33.12 kg/(m2) Physical Exam Constitutional: She is oriented to person, place, and time and well-developed, well-nourished, and in no distress. She appears not lethargic and not jaundiced. She appears healthy. She appears not cachectic. No distress. HENT: Head: Normocephalic and atraumatic. Right Ear: External ear normal. Left Ear: External ear normal. Eyes: Conjunctivae are normal. Right eye exhibits no discharge. Left eye exhibits no discharge. No scleral icterus. Neck: No JVD present. No tracheal tenderness present. No tracheal deviation present. No thyroid mass and no thyromegaly present. Cardiovascular: Normal rate, regular rhythm and normal heart sounds. Exam reveals no gallop and no friction rub. No murmur heard. Pulses: Carotid pulses are 2+ on the right side and 2+ on the left side. Radial pulses are 2+ on the right side and 2+ on the left side. Pulmonary/Chest: Effort normal and breath sounds normal. No accessory muscle usage or stridor. No respiratory distress. She has no decreased breath sounds. She (more content not included)...[facility] Evaluation note* Diagnosis Hypothyroidism, acquired Unspecified hypothyroidism [facility] Diagnosis Hypothyroidism, acquired- Primary Unspecified hypothyroidism Hypertriglyceridemia Pure hyperglyceridemia Temporal arteritis (HCC) Giant cell arteritis Type 2 diabetes mellitus with diabetic polyneuropathy, with long-term current use of insulin (HCC) Vitamin D deficiency Unspecified vitamin D deficiency Obesity, Class I, BMI 30-34.9 Obesity, unspecified [facility] noteNo assessment information availableWMansfield Hospital Work Phone: Evaluation note* Diagnosis Painful urination- Primary Dysuria [facility]* Diagnosis Hypertriglyceridemia Pure hyperglyceridemia [facility]* Diagnosis ARASELI (generalized anxiety disorder) Generalized anxiety disorder [facility] Diagnosis Recurrent UTI (urinary tract infection)- Primary Urinary tract infection, site not specified [facility]* Diagnosis Vitamin D deficiency Unspecified vitamin D deficiency documented in this encounter [facility] note* Diagnosis Type 2 diabetes mellitus with hyperglycemia, with long-term current use of insulin (HCC)- Primary Hypothyroidism, acquired Unspecified hypothyroidism Vitamin D deficiency Unspecified vitamin D deficiency documented in this encounter [facility] note* Diagnosis ARASELI (generalized anxiety disorder) Generalized anxiety disorder documented in this encounter [facility] note* Diagnosis Acute cystitis with hematuria- Primary Acute cystitis documented in this encounter [facility] note* Diagnosis Vitamin D deficiency Unspecified vitamin D deficiency documented in this encounter [facility] note* Diagnosis Hypothyroidism, acquired Unspecified hypothyroidism documented in this encounter [facility] note* Diagnosis Hypothyroidism, acquired Unspecified hypothyroidism documented in this encounter [facility] note* Diagnosis Burning with urination- Primary Dysuria documented in this encounter [facility] note* Diagnosis Vaginal yeast infection- Primary Candidiasis of vulva and vagina documented in this encounter [facility] note* Diagnosis Closed fracture of proximal end of humerus, unspecified fracture morphology, unspecified laterality, initial encounter- Primary documented in this encounter [facility] note* Diagnosis Hypothyroidism, acquired Unspecified hypothyroidism documented in this encounter [facility] note* Diagnosis Hypothyroidism, acquired Unspecified hypothyroidism documented in this encounter [facility] note* Diagnosis Urinary tract infection without hematuria, site unspecified- Primary documented in this encounter [facility] note* Diagnosis Microscopic hematuria- Primary Recurrent UTI (urinary tract infection) Urinary tract infection, site not specified documented in this encounter [facility] note* Diagnosis Medicare annual wellness visit, subsequent- Primary Routine general medical examination at a health care facility Recurrent UTI (urinary tract infection) Urinary tract infection, site not specified Increased urinary frequency Urinary frequency Vaginal yeast infection Candidiasis of vulva and vagina Type 2 diabetes mellitus with hyperglycemia, with long-term current use of insulin (HCC) Chronic kidney disease, stage 3a (HCC) Primary hypertension Unspecified essential hypertension Hypertriglyceridemia Pure hyperglyceridemia Hypothyroidism, acquired Unspecified hypothyroidism ARASELI (generalized anxiety disorder) Generalized anxiety disorder Vitamin D deficiency Unspecified vitamin D deficiency Screening for depression Encounter for screening examination for other mental health and behavioral disorders documented in this encounter [facility] note* Diagnosis Recurrent UTI (urinary tract infection)- Primary Urinary tract infection, site not specified documented in this encounter [facility] note* Diagnosis Type 2 diabetes mellitus with hyperglycemia, with long-term current use of insulin (HCC)- Primary Hypertriglyceridemia Pure hyperglyceridemia Hypothyroidism, acquired Unspecified hypothyroidism Vitamin D deficiency Unspecified vitamin D deficiency documented in this encounter [facility] note* Diagnosis Recurrent UTI (urinary tract infection) Urinary tract infection, site not specified documented in this encounter [facility] note* Diagnosis Type 2 diabetes mellitus with hyperglycemia, with long-term current use of insulin (HCC)- Primary Primary hypertension Unspecified essential hypertension Hypothyroidism, acquired Unspecified hypothyroidism ARASELI (generalized anxiety disorder) Generalized anxiety disorder Vitamin D deficiency Unspecified vitamin D deficiency Hypertriglyceridemia Pure hyperglyceridemia Temporal arteritis (HCC) Giant cell arteritis Chronic kidney disease, stage 3a (HCC) Bilateral leg edema- Primary Edema Cardiac arrhythmia, unspecified cardiac arrhythmia type documented in this encounter [facility] note* Diagnosis Type 2 diabetes mellitus with hyperglycemia, with long-term current use of insulin (HCC)- Primary Primary hypertension Unspecified essential hypertension Hypothyroidism, acquired Unspecified hypothyroidism ARASELI (generalized anxiety disorder) Generalized anxiety disorder Vitamin D deficiency Unspecified vitamin D deficiency Hypertriglyceridemia Pure hyperglyceridemia Temporal arteritis (HCC) Giant cell arteritis Chronic kidney disease, stage 3a (HCC) Palpitations- Primary PVC (premature ventricular contraction) Other premature beats SOB (shortness of breath) Shortness of breath Leg swelling Swelling of limb Primary hypertension Unspecified essential hypertension documented in this encounter [facility] note* Diagnosis Type 2 diabetes mellitus with hyperglycemia, with long-term current use of insulin (HCC)- Primary Primary hypertension Unspecified essential hypertension Hypothyroidism, acquired Unspecified hypothyroidism ARASELI (generalized anxiety disorder) Generalized anxiety disorder Vitamin D deficiency Unspecified vitamin D deficiency Hypertriglyceridemia Pure hyperglyceridemia Temporal arteritis (HCC) Giant cell arteritis Chronic kidney disease, stage 3a (HCC) Leg swelling Swelling of limb documented in this encounter [facility] note* Diagnosis Type 2 diabetes mellitus with hyperglycemia, with long-term current use of insulin (HCC)- Primary Primary hypertension Unspecified essential hypertension Hypothyroidism, acquired Unspecified hypothyroidism ARASELI (generalized anxiety disorder) Generalized anxiety disorder Vitamin D deficiency Unspecified vitamin D deficiency Hypertriglyceridemia Pure hyperglyceridemia Temporal arteritis (HCC) Giant cell arteritis Chronic kidney disease, stage 3a (HCC) ARASELI (generalized anxiety disorder) Generalized anxiety disorder documented in this encounter [facility] note* Diagnosis Type 2 diabetes mellitus with hyperglycemia, with long-term current use of insulin (HCC)- Primary Primary hypertension Unspecified essential hypertension Hypothyroidism, acquired Unspecified hypothyroidism ARASELI (generalized anxiety disorder) Generalized anxiety disorder Vitamin D deficiency Unspecified vitamin D deficiency Hypertriglyceridemia Pure hyperglyceridemia Temporal arteritis (HCC) Giant cell arteritis Chronic kidney disease, stage 3a (HCC) Vitamin D deficiency Unspecified vitamin D deficiency Hypertriglyceridemia Pure hyperglyceridemia Leg swelling Swelling of limb Hypothyroidism, acquired Unspecified hypothyroidism Primary hypertension Unspecified essential hypertension ARASELI (generalized anxiety disorder) Generalized anxiety disorder [facility]* Diagnosis Type 2 diabetes mellitus with hyperglycemia, with long-term current use of insulin (HCC)- Primary Primary hypertension Unspecified essential hypertension Hypothyroidism, acquired Unspecified hypothyroidism ARASELI (generalized anxiety disorder) Generalized anxiety disorder Vitamin D deficiency Unspecified vitamin D deficiency Hypertriglyceridemia Pure hyperglyceridemia Temporal arteritis (HCC) Giant cell arteritis Chronic kidney disease, stage 3a (HCC) Hospital discharge follow-up- Primary Other follow-up examination Bilateral pulmonary embolism (HCC) Other pulmonary embolism and infarction documented in this encounter [facility] note* Diagnosis Type 2 diabetes mellitus with hyperglycemia, with long-term current use of insulin (HCC)- Primary Primary hypertension Unspecified essential hypertension Hypothyroidism, acquired Unspecified hypothyroidism ARASELI (generalized anxiety disorder) Generalized anxiety disorder Vitamin D deficiency Unspecified vitamin D deficiency Hypertriglyceridemia Pure hyperglyceridemia Temporal arteritis (HCC) Giant cell arteritis Chronic kidney disease, stage 3a (HCC) Bilateral pulmonary embolism (HCC)- Primary Other pulmonary embolism and infarction documented in this encounter [facility] note* Diagnosis Microscopic hematuria Recurrent UTI (urinary tract infection) Urinary tract infection, site not specified documented in this encounter [facility] note* Diagnosis Type 2 diabetes mellitus with hyperglycemia, with long-term current use of insulin (HCC)- Primary Bilateral pulmonary embolism (HCC) Other pulmonary embolism and infarction Hypothyroidism, acquired Unspecified hypothyroidism Hypertriglyceridemia Pure hyperglyceridemia Vitamin D deficiency Unspecified vitamin D deficiency Primary hypertension Unspecified essential hypertension History of non-ST elevation myocardial infarction (NSTEMI) Old myocardial infarction Leg swelling Swelling of limb Type 2 diabetes mellitus with diabetic polyneuropathy, with long-term current use of insulin ([facility]) [facility]* Diagnosis UTI symptoms- Primary Other symptoms involving urinary system documented in this encounter [facility] note* Diagnosis Acute cystitis with hematuria- Primary Acute cystitis [facility]* Diagnosis Type 2 diabetes mellitus with hyperglycemia, with long-term current use of insulin (HCC)- Primary documented in this encounter [facility] note* Diagnosis Acute cystitis with hematuria Acute cystitis documented in this encounter [facility] note* Diagnosis Vitamin D deficiency Unspecified vitamin D deficiency documented in this encounter [facility] note* Diagnosis Onset Date Resolution Status Admit Date Diabetes chronic September 15, 2024 2:11pm Dyslipidemia chronic September 15 2:11pm History of DVT (deep vein thrombosis) chronic September 15, 2024 2 :11pm History of pulmonary embolism chroni c September 15, 2024 2:11pm Hypertension chronic September 15 2:11pm Paroxysmal atrial fibrillation chron ic September 15, 2024 2:11pm Pulmonary hypertension chronic Ma y 2024 2:11pm Bilateral edema of lower extremity resolved September 15, 2024 2 :11pm [employer] Work Phone: Evaluation note* Diagnosis Type 2 diabetes mellitus with hyperglycemia, with long-term current use of insulin ([facility])- Primary Hypertriglyceridemia Pure hyperglyceridemia Hypothyroidism, acquired Unspecified hypothyroidism Vitamin D deficiency Unspecified vitamin D deficiency Primary hypertension Unspecified essential hypertension Bilateral pulmonary embolism (HCC) Other pulmonary embolism and infarction History of non-ST elevation myocardial infarction (NSTEMI) Old myocardial infarction Stage 3a chronic kidney disease (HCC) Type 2 diabetes mellitus with diabetic polyneuropathy, with long-term current use of insulin ([facility]) documented in this encounter [facility] note* Diagnosis Dysuria- Primary Vaginal yeast infection Candidiasis of vulva and vagina documented in this encounter [facility] note* Diagnosis Recurrent UTI (urinary tract infection)- Primary Urinary tract infection, site not specified Screening for depression Encounter for screening examination for other mental health and behavioral disorders Hypertriglyceridemia Pure hyperglyceridemia Bilateral pulmonary embolism (HCC) Other pulmonary embolism and infarction Hypothyroidism, acquired Unspecified hypothyroidism Primary hypertension Unspecified essential hypertension Type 2 diabetes mellitus with hyperglycemia, with long-term current use of insulin (HCC) History of non-ST elevation myocardial infarction (NSTEMI) Old myocardial infarction Vitamin D deficiency Unspecified vitamin D deficiency ARASELI (generalized anxiety disorder) Generalized anxiety disorder [facility] Diagnosis Recurrent UTI (urinary tract infection) Urinary tract infection, site not specified documented in this encounter [facility] for referral (narrative)* Diagnostic Procedure Only (Routine) - New Request Specialty Diagnoses / Procedures Referred By Contac t Referred To Contact US IMAGING Diagnoses Microscopic hematuria Recurrent UTI (urinary tract infection) Procedures US KIDNEY/BLADDER US RETROPERITONEAL REAL TIME W/IMAGE COMPLETE 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 APRN.CNP [address] [place] [address] Us Imaging [id number] Referral ID Status Reason Start Date Expiration Date Visits Requested Visits Authorized [id number] New Request Auto-Generat ed Referral 11/25/2023 12/24/2024 1 1 * Consult, Test, Treat (Routine) - Authorized Specialty Diagnoses / Procedures Referred By Contac t Referred To Contact Urology Diagnoses Microscopic hematuria Recurrent UTI (urinary tract infection) Procedures CONSULT TO UROLOGY OFFICE/OUTPATIENT NEW HIGH MDM 60 MINUTES 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 APRN.CNP [address] [place] [address] Referral ID Status Reason Start Date Expiration Date Visits Requested Visits Authorized [id number] Authorized PCP Requested Referral 11/22/2023 11/21/2024 1 1 [facility] for referral (narrative)* Outpatient Procedure (Routine) - New Request Specialty Diagnoses / Procedures Referred By Contac t Referred To Contact [facility] Diagnoses Cardiac arrhythmia, unspecified cardiac arrhythmia type Procedures ECG COMPLETE ECG ROUTINE ECG W/LEAST 12 LDS W/I&R Romeo Mendoza MD [address] [place] [address] [facility] [address] [place] [address] Referral ID Status Reason Start Date Expiration Date Visits Requested Visits Authorized [id number] New Request Auto-Generat ed Referral 01/02/2024 01/01/2025 1 1 [facility] for referral (narrative)* Outpatient Procedure (Routine) - Pending Review Specialty Diagnoses / Procedures Referred By Candida stoddard Referred To Contact [facility] Diagnoses Palpitations PVC (premature ventricular contraction) SOB (shortness of breath) Leg swelling Procedures ECHO ECHO TTHRC R-T 2D W/WOM-MODE COMPL SPEC&COLR D 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 APRN.REELING MACHINE OPERATOR [address] [place] [address] [facility] [address] [place] [address] Referral ID Status Reason Start Date Expiration Date Visits Requested Visits Authorized [id number] Pending Review Auto-Generat ed Referral 01/02/2024 01/01/2025 1 1 * Consult, Test, Treat (Routine) - Authorized Specialty Diagnoses / Procedures Referred By Candida stoddard Referred To Contact Cardiology Diagnoses Palpitations PVC (premature ventricular contraction) SOB (shortness of breath) Leg swelling Procedures CONSULT TO CARDIOLOGY OFFICE/OUTPATIENT [facility] 60 MINUTES 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 APRN.REELING MACHINE OPERATOR [address] [place] [address] Referral ID Status Reason Start Date Expiration Date Visits Requested Visits Authorized [id number] Authorized PCP Requested Referral 01/02/2024 01/01/2025 1 1 [facility] for referral (narrative)* Diagnostic Procedure Only (Routine) - Closed Specialty Diagnoses / Procedures Referred By Candida stoddard Referred To Contact US IMAGING Diagnoses Microscopic hematuria Recurrent UTI (urinary tract infection) Procedures US KIDNEY/BLADDER US RETROPERITONEAL REAL TIME W/IMAGE COMPLETE 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 APRN.REELING MACHINE OPERATOR [address] [place] [address] [place] [address] Referral ID Status Reason Start Date Expiration Date V isits Requested Visits Authorized [id number] Closed Auto-Generate d Referral 11/25/2023 12/24/2024 1 1 [facility]No reason for referral [facility] Work Phone: Summary Purpose Family History No Family History Records FoundNo Family History Records FoundNo Family History Records FoundNo Family History Records FoundNo Family History Records Found Advance Directives No Advanced Directives Records Found Advance Directive Response Recorded Date/ Time Living Will No August 16, 2021 11:20pm Power of [employer]ica Laminating [employer] Feeder No August 16 11:20pm Reason for Referral Status Reason Specialty Diagnoses / Procedures Referred By Contact Referred To Contact Authorized PCP Requested Referral Ophthalmology Diagnoses Screening for diabetic retinopathy Type 2 diabetes mellitus with diabetic polyneuropathy, with long-term current use of insulin (HCC) Procedures CONSULT TO OPHTHALMOLOGY NEW PATIENT VISIT LEVEL 5 Kassi Young [address] [address] Specialty Diagnoses / Procedures Referred By Contmaria t stoddard Referred To Contact Urology Diagnoses Increased urinary frequency Procedures CONSULT TO UROLOGY OFFICE/OUTPATIENT NEW [facility] 60 MINUTES 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 APRN.REELING MACHINE OPERATOR [address] [place] [address] Referral ID Status Reason Start Date Expiration Date Visits Requested Visits Authorized [id number] Authorized PCP Requested Referral 12/02/2023 12/01/2024 1 1 Instructions * Patient Instructions* Haley Green) - 06/20/2020 1:42 PM EST BONE MINERAL DENSITY PATIENT INSTRUCTIONS Bone mineral density testing measures the amount of calcium in certain parts of your bones. This information determines how strong your bones are. The test is used to detect osteoporosis, a disease in which the bone's mineral content and density are low, increasing a person's risk of fractures. Thelumbar spine (lower back) and the hip are the skeletal sites usually examined. For the test, remember that: 1. You cannot take this test if you are . 2. Eat a normal diet on the day of the test. 3. Take your medications as you normally would. 4. DO NOT take calcium supplements (such as Tums) for 24 hours before the test. 5. On the day of the test, leave valuables (jewelry or credit cards) at home. 6. The test should be performed prior to oral, rectal or IV contrast studies, or at least 7 days after any of these studies. For the test, you may be asked to wear a hospital gown. You will lie on your back, on a padded table, in a comfortable position. Generally, you can resume your usual activities immediately. Discussed with the patient the need to ADD more fiber in his diet, cutback total carbs & cut out nighttime snacks. Your metabolism in the morning is the fastest it will be all day you actually burn calories at a higher rate. In the evening your body is preparing to go to sleep which is similar to a state of hibernation. When most of your vital function slow down. That's why the calories eatenlater in the day are stored at a higher caloric rate. Thus the saying, Eat like a Hector for breakfast, a Brady for lunch and a Pauper for dinner. I suggested the patient incorporate more soluble fiber in his diet. This includes apples, pears, plums/prunes, oat bran (the more processed the least fiber. Steel cut/rolled oats have the most fiber per serving) and barley which is easily added to soup. For every 5 g of fiber per serving you can subtract 5 g of carbs. Goal is 25 - 40 Grams of Fiber every day. Suggest adding 5 grams of Fiber / dayweekly. Increase fiber dose cause more gas, as a by-product of the bacteria in your gut digesting it. documented in this encounter History of Present Illness * Kassi Young - 06/21/2020 3:19 PM [place] [address] SUBJECTIVE Tarik Baker is a 74 year old female who presents with Patient presents with: Hypothyroidism Diabetes Prescription Refills Obesity Vit D Def . The patient feels her general health is good. 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 She rarely misses doses of her medication. She is doing much better on her 70/30 insulin than she was before. She denies high or low blood sugar symptoms. Especially since she has had a recent change in her insulin dosing. She denies any major changes in breathing, digestion, heart beating, bowel or bladder function. There are no exam notes on file for this visit. HPI HPI Review of Systems Constitutional: Negative for chills, diaphoresis, fever, malaise/fatigue and weight loss. Eyes: Negative for blurred vision, double vision and redness. Respiratory: Negative for cough, shortness of breath and wheezing. Cardiovascular: Negative for chest pain, palpitations, orthopnea and leg swelling. Gastrointestinal: Negative for abdominal pain, blood in stool, constipation, diarrhea, heartburn, melena, nausea and vomiting. Genitourinary: Negative for frequency and urgency. Musculoskeletal: Negative for joint pain and myalgias. Skin: Negative for itching and rash. Neurological: Negative for tingling, tremors, sensory change, speech change and headaches. Endo/Heme/Allergies: Negative for polydipsia. Does not bruise/bleed easily. PAST MEDICAL HISTORY Diagnosis Date Diabetes (HCC) PAST SURGICAL HISTORY Procedure Laterality Date TUBAL LIGATION HX Social History Tobacco Use Smoking status: Never Smoker Smokeless tobacco: Never Used Substance Use Topics Alcohol use: Never Drug use: Never FAMILY HISTORY Problem Relation Age of Onset No Known Problems Mother No Known Problems Father No Known Problems Maternal Grandmother No Known Problems Maternal Grandfather No Known Problems Paternal Grandmother No Known Problems Paternal Grandfather The ROS, medical, surgical, family, and social history were reviewed by Kassi Young MD ALLERGIES Allergen Reactions Prednisone Other: See Comments Sugar went over 900 Other reaction(s): Other (See Comments) Sugar went over 900 Current Outpatient Medications Medication Sig Fenofibrate (LOFIBRA) 160 mg tablet Take 1 tablet by mouth once daily. sertraline (ZOLOFT) 100 mg tablet Take 1 tablet by mouth once daily. insulin NPH injection (HumuLIN N,NovoLIN N) Inject 27 Units subcutaneously twice daily. aspirin-calcium carbonate 81 mg-300 mg calcium(777 mg) tab Take 81 mg by mouth once daily. Ascorbic Acid 100 mg tablet Take 500 mg by mouth once daily. multivitamin with minerals (MULTIPLE VITAMINS 55 PLUS ORAL) Take 1 capsule by mouth once daily. calcium carbonate/vitamin D2 (CALCIUM + VITAMIN D ORAL) B erhcei-C-senqs-zinc-cup pierce-E 500 mg-400 mcg- 23.9 mg-3 mg tab Take by mouth. Ascorbic Acid (VITAMIN C) 100 mg tablet ZINC ORAL Take by mouth. levothyroxine (SYNTHROID) 150 mcg tablet Take 1 tablet by mouth once daily. ergocalciferol 50,000 unit capsule (VITAMIN D2, DRISDOL) Take 1 capsule by mouth one time a week. No current facility-administered medications for this visit. OBJECTIVE BP 140/80 (BP Site: Left Arm, BP Position: Sitting) Pulse 94 Temp 36.2 C (97.1 F) Resp 12 Ht 5' 5 (1.651 m) Wt 199 lb (90.3 kg) SpO2 98% BMI 33.12 kg/m BMI 33.12 kg/(m^2) Physical Exam Constitutional: She is oriented to person, place, and time and well-developed, well-nourished, and in no distress. She appears not lethargic and not jaundiced. She appears healthy. She appears not cachectic. No distress. HENT: Head: Normocephalic and atraumatic. Right Ear: External ear normal. Left Ear: External ear normal. Eyes: Conjunctivae are normal. Right eye exhibits no discharge. Left eye exhibits no discharge. No scleral icterus. Neck: No JVD present. No tracheal tenderness present. No tracheal deviation present. No thyroid mass and no thyromegaly present. Cardiovascular: Normal rate, regular rhythm and normal heart sounds. Exam reveals no gallop and no friction rub. No murmur heard. Pulses: Carotid pulses are 2+ on the right side and 2+ on the left side. Radial pulses are 2+ on the right side and 2+ on the left side. Pulmonary/Chest: Effort normal and breath sounds normal. No accessory muscle usage or stridor. No respiratory distress. She has no decreased breath sounds. She has no wheezes. She has no rales. Abdominal: Soft. Normal appearance. She exhibits no distension and no mass. There is no abdominal tenderness. There is no rebound and no guarding. Musculoskeletal: General: No deformity or edema. Normal range of motion. Cervical back: Normal range of motion and neck supple. Lymphadenopathy: Head (right side): No submental, no submandibular, no tonsillar and no preauricular adenopathy present. Head (left side): No submental, no submandibular, no tonsillar and no preauricular adenopathy present. She has no cervical adenopathy. Right cervical: No superficial cervical adenopathy present. Left cervical: No superficial cervical adenopathy present. Right: No supraclavicular adenopathy present. Left: No supraclavicular adenopathy present. Neurological: She is alert and oriented to person, place, and time. She has normal reflexes. She appears not lethargic. No cranial nerve deficit. She exhibits normal muscle tone. Gait normal. Skin: Skin is warm and dry. No rash noted. She is not diaphoretic. No erythema. No pallor. Psychiatric: Mood, memory, affect and judgment normal. Nursing note and vitals reviewed. Labs: No results found for: HB, HCT, WBC, PLT No results found for: CREAT No results found for: AST No results found for: ALT No results found for: BLSP, BLCUL, TBILI, CBILI, ABORHD, ABSCREEN, WBC, RBC, BILIT%DIG,%DBS Labs: No visits with results within 1 Day(s) from this visit. Latest known visit with results is: No results found for any previous visit. Plan ASSESSMENT/PLAN: 1. Type 2 diabetes mellitus with diabetic polyneuropathy, with long-term current use of insulin (HCC) - ICD9: 250.60, 357.2, V58.67, ICD10: E11.42, Z79.4 (primary diagnosis) The patient is new to [place]. - Continue current medications - LDL goal of <100 - COMP METABOLIC PANEL - HGB A1C - ALBUMIN/CREAT RATIO RND UR 2. Hypothyroidism, acquired - ICD9: 244.9, ICD10: E03.9 - continue current dose of Synthroid 0.150 mg - Follow up in 3 months Stable - LEVOTHYROXINE 150 MCG TABLET 3. Hypertriglyceridemia - ICD9: 272.1, ICD10: E78.1 - to be determined upon return of lab results - Continue current medication. - Check fasting lipid panel and ALT in 12 weeks. 4. Screening for diabetic retinopathy - ICD9: V80.2, ICD10: Z13.5 - CONSULT TO OPHTHALMOLOGY 5. Special screening examination for viral disease - ICD9: V73.99, ICD10: Z11.59 - HEP C AB IA W/CONF SCRN 6. Encounter for screening mammogram for breast cancer - ICD9: V76.12, ICD10: Z12.31 - Follow up for annual exam in one year. - LUANNE SCREENING 7. Screening for lipid disorders - ICD9: V77.91, ICD10: Z13.220 - LIPID PANEL BASIC 8. Screening for osteoporosis - ICD9: V82.81, ICD10: Z13.820 - DXA-AXIAL SKELETON 9. Asymptomatic menopause - ICD9: V49.81, ICD10: Z78.0 - DXA-AXIAL SKELETON 10. Vitamin D deficiency - ICD9: 268.9, ICD10: E55.9 Continue vitamin D supplementation weekly. Also encouraged the patient to continue her calcium. We will check her blood level after f/u 3 mo - ERGOCALCIFEROL (VITAMIN D2) 1,250 MCG (50,000 UNIT) CAPSULE - VITAMIN D 25 HYDROXY 11. Obesity, Class I, BMI 30-34.9 - ICD9: 278.00, ICD10: E66.9 Stable Kassi Young MD Follow up: Return in about 3 months (around 09/18/2020). documented in this encounter Assessments Diagnosis Type 2 diabetes mellitus with diabetic polyneuropathy, with long-term current use of insulin (HCC)- Primary Hypothyroidism, acquired Unspecified hypothyroidism Hypertriglyceridemia Pure hyperglyceridemia Screening for diabetic retinopathy Screening for other eye conditions Special screening examination for viral disease Special screening examination for unspecified viral disease Asymptomatic menopause Vitamin D deficiency Unspecified vitamin D deficiency Obesity, Class I, BMI 30-34.9 Obesity, unspecified Diagnosis Encounter for immunization- Primary Need for other specified prophylactic vaccination against single bacterial disease Diagnosis Hypertriglyceridemia Pure hyperglyceridemia Chief Complaint and Reason for Visit Chief Complaint general illness Chief Complaint Admit Date 6 M FU September 15, 2024 2:11p m Reason for Visit Admit Date Diabetes September 15, 2024 2:11p m Dyslipidemia September 15, 2024 2:11p m History of DVT (deep vein thrombosis) Ma y 2024 2:11pm History of pulmonary embolism September 15, 2024 2:11pm Hypertension September 15, 2024 2:11p m Paroxysmal atrial fibrillation September 15, 2024 2:11pm Pulmonary hypertension September 15, 2024 2: 11pm Bilateral edema of lower extremity September 032024 2:11pm Additional Source Comments INFORMATION SOURCE (unrecogn ized section and content) DATE CREATED AUTHOR 04/09/2019 [facility] DATE CREATED AUTHOR AUTHOR'S ORGANIZ ATION 11/07/2020 [facility] DATE CREATED AUTHOR AUTHOR'S ORGANIZ ATION 01/04/2021 [facility] DATE CREATED AUTHOR AUTHOR'S ORGANIZ ATION 09/16/2024 [facility] DATE CREATED AUTHOR AUTHOR'S ORGANIZ ATION 01/24/2025 [facility] Comments (unrecognize d section and content) In the event this informatio n is protected by the Federal Confidentiality of Alcohol and Drug Abuse Patient Records regulations: The Federal rules restrict any use of the information to criminally investigate or prosecute any alcohol or drug abuse patient.[facility]In the event this information is protected by the Federal Confidentiality of Alcohol and Drug Abuse Patient Records regulations: The Federal rules restrict any use of the information to criminally investigate or prosecute any alcohol or drug abuse patient.[facility] CenterIn the event this information is protected by the Federal Confidentiality of Alcohol and Drug Abuse Patient Records regulations: The Federal rules restrict any use of the information to criminally investigate or prosecute any alcohol or drug abuse patient.[facility] CenterIn the event this information is protected by the Federal Confidentiality of Alcohol and Drug Abuse Patient Records regulations: The Federal rules restrict any use of the information to criminally investigate or prosecute any alcohol or drug abuse patient.[facility] CenterIn the event this information is protected by the Federal Confidentiality of Alcohol and Drug Abuse Patient Records regulations: The Federal rules restrict any use of the information to criminally investigate or prosecute any alcohol or drug abuse patient.[facility] CenterIn the event this information is protected by the Federal Confidentiality of Alcohol and Drug Abuse Patient Records regulations: The Federal rules restrict any use of the information to criminally investigate or prosecute any alcohol or drug abuse patient.[facility] CenterIn the event this information is protected by the Federal Confidentiality of Alcohol and Drug Abuse Patient Records regulations: The Federal rules restrict any use of the information to criminally investigate or prosecute any alcohol or drug abuse patient.[facility] CenterIn the event this information is protected by the Federal Confidentiality of Alcohol and Drug Abuse Patient Records regulations: The Federal rules restrict any use of the information to criminally investigate or prosecute any alcohol or drug abuse patient.[facility] CenterIn the event this information is protected by the Federal Confidentiality of Alcohol and Drug Abuse Patient Records regulations: The Federal rules restrict any use of the information to criminally investigate or prosecute any alcohol or drug abuse patient.[facility] CenterIn the event this information is protected by the Federal Confidentiality of Alcohol and Drug Abuse Patient Records regulations: The Federal rules restrict any use of the information to criminally investigate or prosecute any alcohol or drug abuse patient.[facility] CenterIn the event this information is protected by the Federal Confidentiality of Alcohol and Drug Abuse Patient Records regulations: The Federal rules restrict any use of the information to criminally investigate or prosecute any alcohol or drug abuse patient.[facility] CenterIn the event this information is protected by the Federal Confidentiality of Alcohol and Drug Abuse Patient Records regulations: The Federal rules restrict any use of the information to criminally investigate or prosecute any alcohol or drug abuse patient.[facility] CenterIn the event this information is protected by the Federal Confidentiality of Alcohol and Drug Abuse Patient Records regulations: The Federal rules restrict any use of the information to criminally investigate or prosecute any alcohol or drug abuse patient.[facility] CenterIn the event this information is protected by the Federal Confidentiality of Alcohol and Drug Abuse Patient Records regulations: The Federal rules restrict any use of the information to criminally investigate or prosecute any alcohol or drug abuse patient.[facility] CenterIn the event this information is protected by the Federal Confidentiality of Alcohol and Drug Abuse Patient Records regulations: The Federal rules restrict any use of the information to criminally investigate or prosecute any alcohol or drug abuse patient.[facility] CenterIn the event this information is protected by the Federal Confidentiality of Alcohol and Drug Abuse Patient Records regulations: The Federal rules restrict any use of the information to criminally investigate or prosecute any alcohol or drug abuse patient.[facility] CenterIn the event this information is protected by the Federal Confidentiality of Alcohol and Drug Abuse Patient Records regulations: The Federal rules restrict any use of the information to criminally investigate or prosecute any alcohol or drug abuse patient.[facility] CenterIn the event this information is protected by the Federal Confidentiality of Alcohol and Drug Abuse Patient Records regulations: The Federal rules restrict any use of the information to criminally investigate or prosecute any alcohol or drug abuse patient.[facility] CenterIn the event this information is protected by the Federal Confidentiality of Alcohol and Drug Abuse Patient Records regulations: The Federal rules restrict any use of the information to criminally investigate or prosecute any alcohol or drug abuse patient.[facility] CenterIn the event this information is protected by the Federal Confidentiality of Alcohol and Drug Abuse Patient Records regulations: The Federal rules restrict any use of the information to criminally investigate or prosecute any alcohol or drug abuse patient.[facility] CenterIn the event this information is protected by the Federal Confidentiality of Alcohol and Drug Abuse Patient Records regulations: The Federal rules restrict any use of the information to criminally investigate or prosecute any alcohol or drug abuse patient.[facility] CenterIn the event this information is protected by the Federal Confidentiality of Alcohol and Drug Abuse Patient Records regulations: The Federal rules restrict any use of the information to criminally investigate or prosecute any alcohol or drug abuse patient.[facility] CenterIn the event this information is protected by the Federal Confidentiality of Alcohol and Drug Abuse Patient Records regulations: The Federal rules restrict any use of the information to criminally investigate or prosecute any alcohol or drug abuse patient.[facility] CenterIn the event this information is protected by the Federal Confidentiality of Alcohol and Drug Abuse Patient Records regulations: The Federal rules restrict any use of the information to criminally investigate or prosecute any alcohol or drug abuse patient.[facility] CenterIn the event this information is protected by the Federal Confidentiality of Alcohol and Drug Abuse Patient Records regulations: The Federal rules restrict any use of the information to criminally investigate or prosecute any alcohol or drug abuse patient.[facility] CenterIn the event this information is protected by the Federal Confidentiality of Alcohol and Drug Abuse Patient Records regulations: The Federal rules restrict any use of the information to criminally investigate or prosecute any alcohol or drug abuse patient.[facility] CenterIn the event this information is protected by the Federal Confidentiality of Alcohol and Drug Abuse Patient Records regulations: The Federal rules restrict any use of the information to criminally investigate or prosecute any alcohol or drug abuse patient.[facility] CenterIn the event this information is protected by the Federal Confidentiality of Alcohol and Drug Abuse Patient Records regulations: The Federal rules restrict any use of the information to criminally investigate or prosecute any alcohol or drug abuse patient.[facility] CenterIn the event this information is protected by the Federal Confidentiality of Alcohol and Drug Abuse Patient Records regulations: The Federal rules restrict any use of the information to criminally investigate or prosecute any alcohol or drug abuse patient.[facility] CenterIn the event this information is protected by the Federal Confidentiality of Alcohol and Drug Abuse Patient Records regulations: The Federal rules restrict any use of the information to criminally investigate or prosecute any alcohol or drug abuse patient.[facility] CenterIn the event this information is protected by the Federal Confidentiality of Alcohol and Drug Abuse Patient Records regulations: The Federal rules restrict any use of the information to criminally investigate or prosecute any alcohol or drug abuse patient.[facility] CenterIn the event this information is protected by the Federal Confidentiality of Alcohol and Drug Abuse Patient Records regulations: The Federal rules restrict any use of the information to criminally investigate or prosecute any alcohol or drug abuse patient.[facility] CenterIn the event this information is protected by the Federal Confidentiality of Alcohol and Drug Abuse Patient Records regulations: The Federal rules restrict any use of the information to criminally investigate or prosecute any alcohol or drug abuse patient.[facility] CenterIn the event this information is protected by the Federal Confidentiality of Alcohol and Drug Abuse Patient Records regulations: The Federal rules restrict any use of the information to criminally investigate or prosecute any alcohol or drug abuse patient.[facility] CenterIn the event this information is protected by the Federal Confidentiality of Alcohol and Drug Abuse Patient Records regulations: The Federal rules restrict any use of the information to criminally investigate or prosecute any alcohol or drug abuse patient.[facility] CenterIn the event this information is protected by the Federal Confidentiality of Alcohol and Drug Abuse Patient Records regulations: The Federal rules restrict any use of the information to criminally investigate or prosecute any alcohol or drug abuse patient.[facility] CenterIn the event this information is protected by the Federal Confidentiality of Alcohol and Drug Abuse Patient Records regulations: The Federal rules restrict any use of the information to criminally investigate or prosecute any alcohol or drug abuse patient.[facility] CenterIn the event this information is protected by the Federal Confidentiality of Alcohol and Drug Abuse Patient Records regulations: The Federal rules restrict any use of the information to criminally investigate or prosecute any alcohol or drug abuse patient.[facility] CenterIn the event this information is protected by the Federal Confidentiality of Alcohol and Drug Abuse Patient Records regulations: The Federal rules restrict any use of the information to criminally investigate or prosecute any alcohol or drug abuse patient.[facility] CenterIn the event this information is protected by the Federal Confidentiality of Alcohol and Drug Abuse Patient Records regulations: The Federal rules restrict any use of the information to criminally investigate or prosecute any alcohol or drug abuse patient.[facility] CenterIn the event this information is protected by the Federal Confidentiality of Alcohol and Drug Abuse Patient Records regulations: The Federal rules restrict any use of the information to criminally investigate or prosecute any alcohol or drug abuse patient.[facility] CenterIn the event this information is protected by the Federal Confidentiality of Alcohol and Drug Abuse Patient Records regulations: The Federal rules restrict any use of the information to criminally investigate or prosecute any alcohol or drug abuse patient.[facility] CenterIn the event this information is protected by the Federal Confidentiality of Alcohol and Drug Abuse Patient Records regulations: The Federal rules restrict any use of the information to criminally investigate or prosecute any alcohol or drug abuse patient.[facility] CenterIn the event this information is protected by the Federal Confidentiality of Alcohol and Drug Abuse Patient Records regulations: The Federal rules restrict any use of the information to criminally investigate or prosecute any alcohol or drug abuse patient.[facility] CenterIn the event this information is protected by the Federal Confidentiality of Alcohol and Drug Abuse Patient Records regulations: The Federal rules restrict any use of the information to criminally investigate or prosecute any alcohol or drug abuse patient.[facility] CenterIn the event this information is protected by the Federal Confidentiality of Alcohol and Drug Abuse Patient Records regulations: The Federal rules restrict any use of the information to criminally investigate or prosecute any alcohol or drug abuse patient.[facility] CenterIn the event this information is protected by the Federal Confidentiality of Alcohol and Drug Abuse Patient Records regulations: The Federal rules restrict any use of the information to criminally investigate or prosecute any alcohol or drug abuse patient.[facility] CenterIn the event this information is protected by the Federal Confidentiality of Alcohol and Drug Abuse Patient Records regulations: The Federal rules restrict any use of the information to criminally investigate or prosecute any alcohol or drug abuse patient.[facility] CenterIn the event this information is protected by the Federal Confidentiality of Alcohol and Drug Abuse Patient Records regulations: The Federal rules restrict any use of the information to criminally investigate or prosecute any alcohol or drug abuse patient.[facility] CenterIn the event this information is protected by the Federal Confidentiality of Alcohol and Drug Abuse Patient Records regulations: The Federal rules restrict any use of the information to criminally investigate or prosecute any alcohol or drug abuse patient.[facility] CenterIn the event this information is protected by the Federal Confidentiality of Alcohol and Drug Abuse Patient Records regulations: The Federal rules restrict any use of the information to criminally investigate or prosecute any alcohol or drug abuse patient.[facility] CenterIn the event this information is protected by the Federal Confidentiality of Alcohol and Drug Abuse Patient Records regulations: The Federal rules restrict any use of the information to criminally investigate or prosecute any alcohol or drug abuse patient.[facility] CenterIn the event this information is protected by the Federal Confidentiality of Alcohol and Drug Abuse Patient Records regulations: The Federal rules restrict any use of the information to criminally investigate or prosecute any alcohol or drug abuse patient.[facility] CenterIn the event this information is protected by the Federal Confidentiality of Alcohol and Drug Abuse Patient Records regulations: The Federal rules restrict any use of the information to criminally investigate or prosecute any alcohol or drug abuse patient.[facility] CenterIn the event this information is protected by the Federal Confidentiality of Alcohol and Drug Abuse Patient Records regulations: The Federal rules restrict any use of the information to criminally investigate or prosecute any alcohol or drug abuse patient.[facility] CenterIn the event this information is protected by the Federal Confidentiality of Alcohol and Drug Abuse Patient Records regulations: The Federal rules restrict any use of the information to criminally investigate or prosecute any alcohol or drug abuse patient.[facility] CenterIn the event this information is protected by the Federal Confidentiality of Alcohol and Drug Abuse Patient Records regulations: The Federal rules restrict any use of the information to criminally investigate or prosecute any alcohol or drug abuse patient.[facility] CenterIn the event this information is protected by the Federal Confidentiality of Alcohol and Drug Abuse Patient Records regulations: The Federal rules restrict any use of the information to criminally investigate or prosecute any alcohol or drug abuse patient.[facility] CenterIn the event this information is protected by the Federal Confidentiality of Alcohol and Drug Abuse Patient Records regulations: The Federal rules restrict any use of the information to criminally investigate or prosecute any alcohol or drug abuse patient.[facility] CenterIn the event this information is protected by the Federal Confidentiality of Alcohol and Drug Abuse Patient Records regulations: The Federal rules restrict any use of the information to criminally investigate or prosecute any alcohol or drug abuse patient.[facility] CenterIn the event this information is protected by the Federal Confidentiality of Alcohol and Drug Abuse Patient Records regulations: The Federal rules restrict any use of the information to criminally investigate or prosecute any alcohol or drug abuse patient.[facility] CenterIn the event this information is protected by the Federal Confidentiality of Alcohol and Drug Abuse Patient Records regulations: The Federal rules restrict any use of the information to criminally investigate or prosecute any alcohol or drug abuse patient.[facility] CenterIn the event this information is protected by the Federal Confidentiality of Alcohol and Drug Abuse Patient Records regulations: The Federal rules restrict any use of the information to criminally investigate or prosecute any alcohol or drug abuse patient.[facility] CenterIn the event this information is protected by the Federal Confidentiality of Alcohol and Drug Abuse Patient Records regulations: The Federal rules restrict any use of the information to criminally investigate or prosecute any alcohol or drug abuse patient.[facility] CenterIn the event this information is protected by the Federal Confidentiality of Alcohol and Drug Abuse Patient Records regulations: The Federal rules restrict any use of the information to criminally investigate or prosecute any alcohol or drug abuse patient.[facility] CenterIn the event this information is protected by the Federal Confidentiality of Alcohol and Drug Abuse Patient Records regulations: The Federal rules restrict any use of the information to criminally investigate or prosecute any alcohol or drug abuse patient.[facility] CenterIn the event this information is protected by the Federal Confidentiality of Alcohol and Drug Abuse Patient Records regulations: The Federal rules restrict any use of the information to criminally investigate or prosecute any alcohol or drug abuse patient.[facility] CenterIn the event this information is protected by the Federal Confidentiality of Alcohol and Drug Abuse Patient Records regulations: The Federal rules restrict any use of the information to criminally investigate or prosecute any alcohol or drug abuse patient.[facility] CenterIn the event this information is protected by the Federal Confidentiality of Alcohol and Drug Abuse Patient Records regulations: The Federal rules restrict any use of the information to criminally investigate or prosecute any alcohol or drug abuse patient.[facility] CenterIn the event this information is protected by the Federal Confidentiality of Alcohol and Drug Abuse Patient Records regulations: The Federal rules restrict any use of the information to criminally investigate or prosecute any alcohol or drug abuse patient.[facility] CenterIn the event this information is protected by the Federal Confidentiality of Alcohol and Drug Abuse Patient Records regulations: The Federal rules restrict any use of the information to criminally investigate or prosecute any alcohol or drug abuse patient.[facility] CenterIn the event this information is protected by the Federal Confidentiality of Alcohol and Drug Abuse Patient Records regulations: The Federal rules restrict any use of the information to criminally investigate or prosecute any alcohol or drug abuse patient.[facility] CenterIn the event this information is protected by the Federal Confidentiality of Alcohol and Drug Abuse Patient Records regulations: The Federal rules restrict any use of the information to criminally investigate or prosecute any alcohol or drug abuse patient.[facility] CenterIn the event this information is protected by the Federal Confidentiality of Alcohol and Drug Abuse Patient Records regulations: The Federal rules restrict any use of the information to criminally investigate or prosecute any alcohol or drug abuse patient.[facility] CenterIn the event this information is protected by the Federal Confidentiality of Alcohol and Drug Abuse Patient Records regulations: The Federal rules restrict any use of the information to criminally investigate or prosecute any alcohol or drug abuse patient.[facility] CenterIn the event this information is protected by the Federal Confidentiality of Alcohol and Drug Abuse Patient Records regulations: The Federal rules restrict any use of the information to criminally investigate or prosecute any alcohol or drug abuse patient.[facility] CenterIn the event this information is protected by the Federal Confidentiality of Alcohol and Drug Abuse Patient Records regulations: The Federal rules restrict any use of the information to criminally investigate or prosecute any alcohol or drug abuse patient.[facility] CenterIn the event this information is protected by the Federal Confidentiality of Alcohol and Drug Abuse Patient Records regulations: The Federal rules restrict any use of the information to criminally investigate or prosecute any alcohol or drug abuse patient.[facility] CenterIn the event this information is protected by the Federal Confidentiality of Alcohol and Drug Abuse Patient Records regulations: The Federal rules restrict any use of the information to criminally investigate or prosecute any alcohol or drug abuse patient.[facility] CenterIn the event this information is protected by the Federal Confidentiality of Alcohol and Drug Abuse Patient Records regulations: The Federal rules restrict any use of the information to criminally investigate or prosecute any alcohol or drug abuse patient.[facility] CenterIn the event this information is protected by the Federal Confidentiality of Alcohol and Drug Abuse Patient Records regulations: The Federal rules restrict any use of the information to criminally investigate or prosecute any alcohol or drug abuse patient.[facility] CenterIn the event this information is protected by the Federal Confidentiality of Alcohol and Drug Abuse Patient Records regulations: The Federal rules restrict any use of the information to criminally investigate or prosecute any alcohol or drug abuse patient.[facility] CenterIn the event this information is protected by the Federal Confidentiality of Alcohol and Drug Abuse Patient Records regulations: The Federal rules restrict any use of the information to criminally investigate or prosecute any alcohol or drug abuse patient.[facility] CenterIn the event this information is protected by the Federal Confidentiality of Alcohol and Drug Abuse Patient Records regulations: The Federal rules restrict any use of the information to criminally investigate or prosecute any alcohol or drug abuse patient.[facility] CenterIn the event this information is protected by the Federal Confidentiality of Alcohol and Drug Abuse Patient Records regulations: The Federal rules restrict any use of the information to criminally investigate or prosecute any alcohol or drug abuse patient.[facility] CenterIn the event this information is protected by the Federal Confidentiality of Alcohol and Drug Abuse Patient Records regulations: The Federal rules restrict any use of the information to criminally investigate or prosecute any alcohol or drug abuse patient.[facility] CenterIn the event this information is protected by the Federal Confidentiality of Alcohol and Drug Abuse Patient Records regulations: The Federal rules restrict any use of the information to criminally investigate or prosecute any alcohol or drug abuse patient.[facility] CenterIn the event this information is protected by the Federal Confidentiality of Alcohol and Drug Abuse Patient Records regulations: The Federal rules restrict any use of the information to criminally investigate or prosecute any alcohol or drug abuse patient.[facility] Reason for Visit (unrecogniz ed section and content) Reason Comments Hypothyroidism Diabetes Prescription Refills Obesity Vit D Def Reason Onset Date Comments Refill Request 07/25/2020 Reason Onset Date Comments Refill Request 09/13/2020 Reason Comments Hypothyroidism Hyperlipidemia Prescription Refills did labs this am Diabetes Obesity Vit D Def Reason Onset Date Comments Population Health Navigation Outreach 09/05/2021 [employer] care gaps Reason Comments Results Reason Comments UTI painful urination x2 weeks Reason Onset Date Comments Refill Request 11/09/2021 Reason Comments Patient Question Reason Onset Date Comments Refill Request 11/27/2021 Reason Onset Date Comments Uti - Re-occurring 12/18/2021 Reason Comments urinary symptoms Reason Comments Refill Request Reason Onset Date Comments Population Health Navigation Outreach 02/23/2022 [employer] Care Gaps Reason Onset Date Comments Population Health Navigation Outreach 03/13/2022 [employer] care gap Reason Comments FMLA Paperwork Reason Onset Date Comments Refill Request 04/09/2022 Reason Onset Date Comments Refill Request 05/15/2022 Reason Comments possible uti Reason Comments UTI Reason Comments Results Urine Reason Onset Date Comments Refill Request Refill Request 07/13/2022 Reason Onset Date Comments Refill Request 07/13/2022 Reason Onset Date Comments Refill Request 10/02/2022 Reason Comments UTI Burning , itching x 2 days Reason Comments FMLA forms Reason Comments Vaginal Problem Reason Comments Orders Reason Comments burning, itching and pain-thinks has bill dder infection Reason Comments Appointment Reason Comments Results Urine Reason Comments Urinary Frequency Reason Comments Medicare Wellness Exam Reason Comments Results US Bladder/Kidney Reason Comments Results Labs Reason Onset Date Comments Refill Request 12/20/2023 Reason Comments Edema Bilateral lower legs , L worse x4 weeks Reason Comments Leg Edema Reason Comments Results Echo Reason Comments Med Change Request Reason Comments Shortness of Breath Reason Comments Home Health Request/Update Reason Comments OT plan of care Reason Onset Date Comments Refill Request 02/13/2024 Reason Comments ER F/U Seen in [facility] 02/06 and was diagnosed with blood clots, has home health and has been doing well, states SOB has improved Reason Onset Date Comments Refill Request 02/17/2024 Reason Comments Patient Update Reason Onset Date Comments Refill Request 02/18/2024 Reason Onset Date Comments Refill Request 02/24/2024 Reason Comments [facility] Reason Comments UTI s/s Reason Comments Radiology US Specialty Diagnoses / Procedures Referred By Contac t Referred To Contact US IMAGING Diagnoses Microscopic hematuria Recurrent UTI (urinary tract infection) Procedures US KIDNEY/BLADDER US RETROPERITONEAL REAL TIME W/IMAGE COMPLETE 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, 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 [address] [place] [address] [place] [address] Referral ID Status Reason Start Date Expiration Date V isits Requested Visits Authorized [id number] Closed Auto-Generate d Referral 11/25/2023 12/24/2024 1 1 Reason Comments FMLA Paperwork Completed for daught er to help with care and appts Reason Onset Date Comments Refill Request 04/20/2024 Reason Onset Date Comments Refill Request 05/20/2024 Reason Onset Date Comments Refill Request 05/26/2024 Reason Comments 6 Month Exam Reason Comments Lab Orders Reason Onset Date Comments Results 06/18/2024 Reason Onset Date Comments Results 06/19/2024 Labs Reason Comments Patient concern Reason Comments Urinary Problem Reason Onset Date Comments Population Health Navigation Outreach 07/28/2024 [employer] workbenc philip Reason Onset Date Comments Refill Request 08/24/2024 Reason Comments F/U 3 Month Reason Onset Date Comments Population Health Navigation Outreach 11/13/2024 [employer] Philip Reason Onset Date Comments Results 09/22/2024 Reason Comments UTI urinary frequency, d ysuria, chills Reason Onset Date Comments Population Health Navigation Outreach 12/18/2024 Aline Palacios Reason Comments 6 Month Exam Reason Comments Medication Problem rx's failed did not go to pharmacy Telephone Encounter - Haley Green) - 07/25/2020 9:04 AM EDT Miscellaneous Notes (unrecog nized section and content) Patient called requesting the following refill Refill(s) Requested: Pending Prescriptions Disp Refills FENOFIBRATE 160 MG TABLET 90 tablet 0 Sig: Take 1 tablet by mouth once daily. MARIA INES: No ALLERGIES Allergen Reactions Prednisone Other: See Comments Sugar went over 900 Other reaction(s): Other (See Comments) Sugar went over 900 (home) Last Visit date: 06/24/2020 Future appointment: 09/19/2020 The patients preferred pharmacy has been captured for this encounter? yes Request is for script(s) to be escript to pharmacy. Haley Green MA documented in this encounter Goals (unrecognized section and content) Goals may be documented in a n alternate sectionGoals may be documented in an alternate section Care Teams (unrecognized sec tion and content) Obstetric Assistant Relationship Specialty Start Date End Date Zac Linton MD [address], [place] [id number] PCP - General Family Practice 12/12/20 Obstetric Assistant Relationship Specialty Start Date End Date Zac Linton MD [address] [place] [address] PCP - General Family Practice 12/12/20 Obstetric Assistant Relationship Specialty Start Date End Date Zac Linton MD [address] [place] [address] PCP - General Family Practice 12/12/20 Obstetric Assistant Relationship Specialty Start Date End Date Zac Linton MD [address] [place] [address] PCP - General Family Practice 12/12/20 Obstetric Assistant Relationship Specialty Start Date End Date Zac Linton MD [address] [place] [address] PCP - General Family Practice 12/12/20 Obstetric Assistant Relationship Specialty Start Date End Date Zac Linton MD [address] [place] [address] PCP - General Family Practice 12/12/20 Obstetric Assistant Relationship Specialty Start Date End Date Zac Linton MD [address] [place] [address] PCP - General Family Medicine 12/12/20 Obstetric Assistant Relationship Specialty Start Date End Date Zac Linton MD [address] [place] [address] PCP - General Family Medicine 12/12/20 Obstetric Assistant Relationship Specialty Start Date End Date Zac Linton MD [address] [place] [address] PCP - General Family Medicine 12/12/20 Obstetric Assistant Relationship Specialty Start Date End Date Zac Linton MD [address] [place] [address] PCP - General Family Medicine 12/12/20 Obstetric Assistant Relationship Specialty Start Date End Date Zac Linton MD [address] [place] [address] PCP - General Family Medicine 12/12/20 Obstetric Assistant Relationship Specialty Start Date End Date Zac Linton MD [address] [place] [address] PCP - General Family Medicine 12/12/20 Obstetric Assistant Relationship Specialty Start Date End Date Zac Linton MD [address] [place] [address] PCP - General Family Medicine 12/12/20 Obstetric Assistant Relationship Specialty Start Date End Date Zac Linton MD [address] [place] [address] PCP - General Family Medicine 12/12/20 Obstetric Assistant Relationship Specialty Start Date End Date Zac Linton MD [address] [place] [address] PCP - General Family Medicine 12/12/20 Obstetric Assistant Relationship Specialty Start Date End Date Zac Linton MD [address] [place] [address] PCP - General Family Medicine 12/12/20 Obstetric Assistant Relationship Specialty Start Date End Date Zac Linton MD [address] [place] [address] PCP - General Family Medicine 12/12/20 Obstetric Assistant Relationship Specialty Start Date End Date Zac Linton MD [address] [place] [address] PCP - General Family Medicine 12/12/20 Obstetric Assistant Relationship Specialty Start Date End Date Zac Linton MD [address] [place] [address] PCP - General Family Medicine 12/12/20 Obstetric Assistant Relationship Specialty Start Date End Date Zac Linton MD [address] [place] [address] PCP - General Family Medicine 12/12/20 Obstetric Assistant Relationship Specialty Start Date End Date Zac Linton MD [address] [place] [address] PCP - General Family Medicine 12/12/20 Obstetric Assistant Relationship Specialty Start Date End Date Zac Linton MD [address] [place] [address] PCP - General Family Medicine 12/12/20 Obstetric Assistant Relationship Specialty Start Date End Date Zac Linton MD [address] [place] [address] PCP - General Family Medicine 12/12/20 Obstetric Assistant Relationship Specialty Start Date End Date Zac Linton MD [address] [place] [address] PCP - General Family Medicine 12/12/20 Obstetric Assistant Relationship Specialty Start Date End Date Zac Linton MD [address] [place] [address] PCP - General Family Medicine 12/12/20 Obstetric Assistant Relationship Specialty Start Date End Date Zac Linton MD [address] [place] [address] PCP - General Family Medicine 12/12/20 Obstetric Assistant Relationship Specialty Start Date End Date Zac Linton MD [address] [place] [address] PCP - General Family Medicine 12/12/20 Obstetric Assistant Relationship Specialty Start Date End Date Zac Linton MD [address] [place] [address] PCP - General Family Medicine 12/12/20 Obstetric Assistant Relationship Specialty Start Date End Date Zac Linton MD [address] [place] [address] PCP - General Family Medicine 12/12/20 Obstetric Assistant Relationship Specialty Start Date End Date Zac Linton MD [address] [place] [address] PCP - General Family Medicine 12/12/20 Obstetric Assistant Relationship Specialty Start Date End Date Zac Linton MD [address] [place] [address] PCP - General Family Medicine 12/12/20 Obstetric Assistant Relationship Specialty Start Date End Date Zac Linton MD [address] [place] [address] PCP - General Family Medicine 12/12/20 Obstetric Assistant Relationship Specialty Start Date End Date Zac Linton MD [address] [place] [address] PCP - General Family Medicine 12/12/20 Obstetric Assistant Relationship Specialty Start Date End Date Zac Linton MD [address] [place] [address] PCP - General Family Medicine 12/12/20 Obstetric Assistant Relationship Specialty Start Date End Date Zac Linton MD [address] [place] [address] PCP - General Family Medicine 12/12/20 Obstetric Assistant Relationship Specialty Start Date End Date Zac Linton MD [address] [place] [address] PCP - General Family Medicine 12/12/20 Obstetric Assistant Relationship Specialty Start Date End Date Zac Linton MD [address] [place] [address] PCP - General Family Medicine 12/12/20 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, ELIF.REELING MACHINE OPERATOR [address] [place] [address] [facility] 04/12/24 Obstetric Assistant Relationship Specialty Start Date End Date Zac Linton MD [address] [place] [address] PCP - General Family Medicine 12/12/20 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, 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 [address] [place] [address] [facility] 04/12/24 Obstetric Assistant Relationship Specialty Start Date End Date Zac Linton MD [address] [place] [address] PCP - General Family Medicine 12/12/20 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, 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 [address] [place] [address] [facility] 04/12/24 Shankar Palacio 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 [address] [place] [address] [facility] 04/21/24 Obstetric Assistant Relationship Specialty Start Date End Date Zac Linton MD [address] [place] [address] PCP - General Family Medicine 12/12/20 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 APRN.REELING MACHINE OPERATOR [address] [place] [address] [facility] 04/12/24 Shankar Palacio APRN.REELING MACHINE OPERATOR [address] [place] [address] Stopper [employer] [facility] Medicine 04/21/24 Obstetric Assistant Relationship Specialty Start Date End Date Zac Linton MD [address] [place] [address] PCP - General Family Medicine 12/12/20 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 APRN.REELING MACHINE OPERATOR [address] [place] [address] [facility] 04/12/24 Shankar Palacio APRN.REELING MACHINE OPERATOR [address] [place] [address] [facility] Obstetric Assistant Relationship Specialty Start Date End Date Zac Linton MD [address] [place] [address] PCP - General Family Medicine 12/12/20 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 APRN.REELING MACHINE OPERATOR [address] [place] [address] [facility] 04/12/24 Shankar Palacio APRN.REELING MACHINE OPERATOR [address] [place] [address] [facility] 04/21/24 Obstetric Assistant Relationship Specialty Start Date End Date Zac Linton MD [address] [place] [address] PCP - General Family Medicine 12/12/20 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 APRN.REELING MACHINE OPERATOR [address] [place] [address] [facility] 04/12/24 Shankar Palacio APRN.REELING MACHINE OPERATOR [address] [place] [address] [facility] 04/21/24 Obstetric Assistant Relationship Specialty Start Date End Date Zac Linton MD [address] [place] [address] PCP - General Family Medicine 12/12/20 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 APRN.REELING MACHINE OPERATOR [address] [place] [address] [facility] 04/12/24 Shankar Palacio APRN.REELING MACHINE OPERATOR [address] [place] [address] [facility] 04/21/24 Obstetric Assistant Relationship Specialty Start Date End Date Zac Linton MD [address] [place] [address] PCP - General Family Medicine 12/12/20 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 APRN.REELING MACHINE OPERATOR [address] [place] [address] [facility] 04/12/24 Shankar Palacio APRN.REELING MACHINE OPERATOR [address] [place] [address] [facility] 04/21/24 Obstetric Assistant Relationship Specialty Start Date End Date Zac Linton MD [address] [place] [address] PCP - General Family Medicine 12/12/20 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 [address] [place] [address] [facility] 04/12/24 Shankar Palacio 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 [address] [place] [address] [facility] 04/21/24 Team Status: Active Member Role Status Dates Dr. Zac Linton MD Primary Care Provider Active Team Status: Inactive Member Role Status Dates Dr. Zac Linton MD Primary Care Provider Active Start: September 15, 2024 End: September 15, 2024 Dr. Zac Linton MD Referring Provider Active Start: September 15, 2024 End: September 15, 2024 Dr. Josue Hsu MD Attending Provider Active Start: September 15, 2024 End: September 15, 2024 Obstetric Assistant Relationship Specialty Start Date End Date Zac Linton MD [address] [place] [address] PCP - General Family Medicine 12/12/20 Shankar Palacio, 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 [address] [place] [address] [facility] 04/21/24 Obstetric Assistant Relationship Specialty Start Date End Date Zac Linton MD [address] [place], [place] [address] [phone] PCP - General Family Medicine 12/12/20 Shankar Palacio APRN.REELING MACHINE OPERATOR [address] [place] [address] [facility] 04/21/24 Obstetric Assistant Relationship Specialty Start Date End Date Zac Linton MD [address] [place] [address] PCP - General Family Medicine 12/12/20 Shankar Palacio APRN.REELING MACHINE OPERATOR [address] [place] [address] [facility] 04/21/24 Obstetric Assistant Relationship Specialty Start Date End Date Zac Linton MD [address] [place] [address] PCP - General Family Medicine 12/12/20 Shankar Palacio, 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 [address] [place] [address] [facility] 04/21/24 Obstetric Assistant Relationship Specialty Start Date End Date Zac Linton MD [address] [place] [address] PCP - General Family Medicine 12/12/20 Shankar Palacio 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 [address] [place] [address] [facility] 04/21/24 Obstetric Assistant Relationship Specialty Start Date End Date Zac Linton MD [address] [place] [address] PCP - General Family Medicine 12/12/20 Shankar Palacio APRN.REELING MACHINE OPERATOR [address], [place] [address] [facility] 04/21/24 Obstetric Assistant Relationship Specialty Start Date End Date Zac Linton MD [address], [place] [address] PCP - [facility] 12/12/20 Shankar Palacio APRN.REELING MACHINE OPERATOR [address], [place] [address] [facility] 04/21/24 Obstetric Assistant Relationship Specialty Start Date End Date Zac Linton MD [address], [place] [address] PCP - [facility] 12/12/20 Shankar Palacio APRN.REELING MACHINE OPERATOR [address], [place] [address] [facility] 04/21/24 FOR RECORDS PERTAINING TO PATIENTS WHO ARE OR HAVE BEEN ENROLLED IN A CHEMICAL DEPENDENCY/SUBSTANCEABUSE PROGRAM, SOME INFORMATION MAY BE OMITTED. This clinical summary was aggregated from multiple sources. Caution should be exercised in using it in the provision of clinical care. This summary normalizes information from multiple sources, and as a consequence, information in this document may materially change the coding, format and clinical context of patient data. In addition, data may be omitted in some cases. CLINICAL DECISIONS SHOULD BE BASED ON THE PRIMARY CLINICAL RECORDS. [employer] provides no warranty or guarantee of the accuracy or completeness of information in this document.
[2025-01-26 04:45] LABS: Red Blood Cells-Urine 0-5 SEEN /hpf (0-5)
[2025-01-26 05:33] VITALS: PULSE 67; RESP 17; O2SAT 96
--- NOTE | 2025-01-26 05:45 | EX.ED.DYSGE1 ---
HPI History of Present Illness Chief Complaint: Dizziness Informant: patient Narrative Narrative: Patient is a 79-year-old female with past medical history of hypertension hyperlipidemia hypothyroidism and atrial fibrillation currently on Eliquis. He states she was seen by her family doctor just the other day and had labs drawn that showed she was dehydrated. She states has been no recent vomiting or diarrhea. She does admit to increased urination but denies any dysuria. She states she is felt dizzy. She states that this seems to worsen with changes in position and improves while at rest. She states she has concerned she may need IV fluids based on her recent labs showing dehydration and now her sensation of dizziness and therefore comes in for evaluation [facility] Medical History Atrial fibrillation Bilateral pulmonary embolism Depression Diabetes Hypercholesteremia Hypothyroid Hypoxemia Myocardial infarct Non-smoker Pulmonary embolism TIA (transient ischemic attack) Home Medications ?Medication ?Instructions ?Recorded ?Last Taken ?Type fenofibrate 160 mg tablet 160 mg PO DAILY 12/18/20 02/04/24 History ascorbic acid (vitamin C) 100 mg 100 mg PO QDAY 01/24/24 02/04/24 History tablet aspirin 325 mg tablet 325 mg PO QDAY 01/24/24 02/04/24 History Held on 02/06/24. Instructions: Hold it while patient is on Eliquis ergocalciferol (vitamin D2) 1,250 1,250 mcg PO MO 01/24/24 02/03/24 History mcg (50,000 unit) capsule levothyroxine 175 mcg tablet 175 mcg PO QDAY 01/24/24 02/04/24 History (Synthroid) multivitamin 1 tab PO QAM 01/24/24 02/04/24 History sertraline 100 mg tablet 100 mg PO QDAY 01/24/24 02/04/24 History zinc gluconate 100 mg tablet 100 mg PO DAILY 02/04/24 02/04/24 History enalapril maleate 20 mg tablet 40 mg PO QDAY 03/23/24 Unknown History furosemide 40 mg tablet (Lasix) 40 mg PO QAM #90 tabs 03/23/24 Unknown Rx Held on 01/26/25. Instructions: Ordered potassium chloride 20 mEq 20 meq PO QDAY #90 tabs 03/23/24 Unknown Rx tablet,extended release Held on 01/26/25. Instructions: Ordered apixaban 5 mg tablet (Eliquis) 5 mg PO BID #60 tabs 04/20/24 Unknown Rx insulin NPH isoph U-100 human 100 25 unit subcut BID 09/15/24 Unknown History unit/mL subcutaneous suspension (Novolin N NPH U-100 Insulin isophane) metoprolol tartrate 50 mg tablet 50 mg PO BID #180 tabs 09/15/24 Unknown Rx Allergy/AdvReac Type Severity Reaction Status Date / Time prednisone Allergy Mild Swelling Verified 01/26/25 03:34 Surgical History H/O tubal ligation Social History Smoking Status: Never smoker Electronic Cigarette Use: not used alcohol intake: never substance use type: does not use ROS ROS ED Constitutional Constitutional ED: Denies chills or fever(s) Eyes Eyes: Denies change in vision ENT ENT ED: Denies sore throat Cardiovascular Cardiovascular: Denies palpitations or racing heartbeat Respiratory/Chest Respiratory/Chest: Denies cough or dyspnea Gastrointestinal Gastrointestinal: Denies abdominal pain, diarrhea, nausea or vomiting Genitourinary Genitourinary ED: Reports urinary frequency; Denies dysuria or hematuria Musculoskeletal Musculoskeletal: Denies myalgias Integumentary Denies rash Neurologic Neurologic: Reports other Details: Positive dizziness ; Denies headache(s) Hematologic/Lymphatic Hematologic/Lymphatic: Reports easy bleeding and easy bruising EXAM Physical Exam Const Vital Signs: 01/26/25 03:35 01/26/25 04:12 Temperature 98.3 F Temperature Source Oral Pulse Rate 77 Pulse Rate [Lying] 75 Pulse Rate [Sitting (for 1 minute prior to obtaining)] 70 Pulse Rate [Standing (for 1 minute prior to obtaining)] 84 Respiratory Rate 18 Blood Pressure 157/75 H Blood Pressure [Lying] 172/72 H Blood Pressure [Sitting (for 1 minute prior to obtaining)] 180/75 H Blood Pressure [Standing (for 1 minute prior to obtaining)] 177/77 H Blood Pressure Mean 102 Blood Pressure Mean [Lying] 105 Blood Pressure Mean [Sitting (for 1 minute prior to obtaining)] 110 Blood Pressure Mean [Standing (for 1 minute prior to obtaining)] 110 Pulse Ox 98 Oxygen Delivery Method Room Air Positive well nourished and well developed General Appearance ED: well developed; Negative for pallor HEENT HEENT Narrative: Normocephalic atraumatic No tongue or lip swelling no oral lesions no airway edema or compromise Mucous membranes are slightly dry and tacky No secondary findings in the posterior pharynx to suggest infection Bilateral TMs show no signs of infection Eyes PERRL and EOMs intact bilaterally General Eye ED: Negative for scleral icterus Neck supple Neck Narrative: No nuchal rigidity or meningeal signs Resp normal respiratory effort and clear to auscultation bilaterally Resp Narrative: Breath sounds are diminished throughout but overall clear to auscultation without signs of respiratory distress Cardio regular rate and regular rhythm Rate: other Other Details: Heart is regular rate and rhythm Radial and carotid pulses are equal and symmetric GI non-tender, non-distended and no masses GI Narrative: Abdomen is soft nontender and nondistended with normal active bowel sounds. No organomegaly noted. No voluntary guarding or rigidity or pulsatile mass. No peritoneal signs Auscultation: normoactive bowel sounds Palpation: soft Extremity normal to inspection Neuro oriented x3, CN's II-XII intact bilaterally and no sensory deficits noted Neuro Narrative: GCS of 15 Cranial nerves II through XII are grossly intact without focal neurologic deficit No pronator drift no dysmetria no truncal ataxia There is slight horizontal nystagmus noted Positive Hallpike Malmo exam on left NIH stroke scale score of 0 Sensorium / Orientation: alert Motor Exam: strength 5/5 throughout Psych mental status grossly normal Skin no rashes or lesions noted and No skin turgor normal Skin Narrative: Skin turgor is slightly increased General Skin Exam: Negative for jaundice or pallor MDM MDM MDM Narrative Medical decision making narrative: Patient arrived to the ER with stable vitals. She reported recent laboratory studies that show changes consistent with dehydration and now had a sensation of dizziness which she described more as a sense of motion and was worse with position change. Based on her blood thinner use in order to rule out a spontaneous subarachnoid or subdural hemorrhage a CT was obtained. In order to check for acute blood loss anemia versus acute kidney injury versus electrolyte abnormality as well as a urinary tract infection basic labs were ordered. Head CT revealed no acute bleed or mass. Labs showed stable hemoglobin and hematocrit near patient's baseline as well as kidney function. Potassium was slightly elevated at 5.7 which is most consistent with her history of dehydration. There were no EKG changes consistent with hyperkalemia. Despite her urinary frequency her urine sample did not show any obvious signs of infection. She was given IV fluid as well as Kayexalate and I felt this would help with the hyperkalemia as well as dehydration. She was given Antivert based on her symptoms correlating with peripheral vertigo. After receiving treatment she reported feeling better and could ambulate with a steady gait. Therefore as her CT reveals no sign of bleed or mass she does not have signs of urinary sepsis or acute kidney injury and she has had improvement of her symptoms with treatment I do not feel need for admission and she is otherwise safe for discharge. History & Record Review Discussion w/independent historian: Patient and Significant other Lab Data Attestation: I reviewed the patient's lab results. Labs: Laboratory Results - last 24 hr 01/26/25 01/26/25 03:45 03:55 WBC 5.0 RBC 3.25 L Hgb 10.5 L Hct 32.3 L MCV 99.4 H MCH 32.3 H MCHC 32.5 RDW Std Deviation 52.0 H RDW Coeff of Alejandra 14.3 Plt Count 231 MPV 10.2 Immature Gran % (Auto) 0.200 Neut % (Auto) 51.9 Lymph % (Auto) 31.5 [place] % (Auto) 11.6 H Eos % (Auto) 4.4 Baso % (Auto) 0.4 Absolute Neuts (auto) 2.6 Absolute Lymphs (auto) 1.57 Nucleated RBC % 0 Sodium 137 Potassium 5.7 H Chloride 107 Carbon Dioxide 21.4 Anion Gap 9 BUN 30 H Creatinine 1.14 Estim Creat Clear Calc 46.47 L Est GFR (MDRD) Non-Af 49 L BUN/Creatinine Ratio 26.6 H Glucose 168 H Calcium 9.0 Magnesium 2.1 Urine Color Yellow Urine Clarity Clear Urine pH 7.0 Ur Specific [place] 1.010 Urine Protein 15 H Urine Glucose (UA) Normal Urine Ketones Negative Urine Occult Blood 150 H Urine Nitrite Negative Urine Bilirubin Negative Urine Urobilinogen Normal Ur Leukocyte Esterase 500 H Urine RBC 0-5 SEEN Urine WBC 0-5 SEEN Ur Squamous Epith Cells 0 SEEN Urine Bacteria RARE Urine Mucus 0 SEEN Radiography Diagnostic Testing: Clinical Impression(s) from Imaging Studies Brain CT 01/26/25 04:02 IMPRESSION: No acute cerebrovascular abnormalities. If clinical symptoms persist, further evaluation with MRI may be considered as clinically warranted. No intra or extra-axial acute hemorrhage. Bilateral cerebral microvascular ischemic changes with age matches brain involutional changes. [id number] T[facility] Chief Complaint: Dizziness ED Provider: Rich Ocampo Dx/Rx/DC Orders Clinical Impression: Dehydration, Hyperkalemia, Hypertension, Paroxysmal atrial fibrillation, Current use of long term care administrator anticoagulation Instructions: ED Dehydration (Adult), ED Hyperkalemia Prescriptions: No Action levothyroxine [Synthroid] 175 mcg tablet 175 mcg PO QDAY aspirin 325 mg tablet 325 mg PO QDAY multivitamin Tablet 1 tab PO QAM ascorbic acid (vitamin C) 100 mg tablet 100 mg PO QDAY sertraline 100 mg tablet 100 mg PO QDAY enalapril maleate 20 mg tablet 40 mg PO QDAY furosemide [Lasix] 40 mg tablet 40 mg PO QAM Qty: 90 3RF potassium chloride 20 mEq tablet extended release 20 meq PO QDAY Qty: 90 3RF metoprolol tartrate 50 mg tablet 50 mg PO BID Qty: 180 3RF fenofibrate 160 mg tablet 160 mg PO DAILY ergocalciferol (vitamin D2) 1,250 mcg (50,000 unit) capsule 1,250 mcg PO MO Patient Comments: TAKE 1 CAPSULE EVERY WEEK zinc gluconate 100 mg tablet 100 mg PO DAILY Novolin N NPH U-100 Insulin 100 unit/mL suspension 25 unit subcut BID Eliquis 5 mg tablet 5 mg PO BID Qty: 60 2RF Primary Care Provider: Martín Linton Referrals: Martín Linton MD [Primary Care Provider, Family Practice] Activity Restrictions/Additional Instructions: Your workup today showed no sign of abnormal heart rhythm brain bleed or urinary tract infection. Your physical exam showed changes consistent with dehydration which was corrected by the IV fluids provided in the ER. Your potassium was slightly high but this was also corrected by the IV fluids and the Kayexalate you took prior to discharge. Follow-up with your family doctor for repeat evaluation and return to the ER should you have any further concerns. Print Language: Lao Disposition Disposition: Home, Self Care Discharge Date/Time: 01/26/25 06:46
[2025-01-26 06:44] VITALS: BP 165/62; PULSE 65; RESP 16; TEMP 36.4; O2SAT 98
== END 2025-01-26 06:46 | disposition home or self-care (01) ==
PROVIDERS: Emergency Provider Emergency Medicine; PCP Family Medicine; Visit Provider Emergency Medicine
DX: E87.5 Hyperkalemia (principal); I48.0 Paroxysmal atrial fibrillation; E11.9 Type 2 diabetes mellitus without complications; Z79.4 Long term (current) use of insulin; I10 Essential (primary) hypertension; E86.0 Dehydration; H81.399 Other peripheral vertigo, unspecified ear; E78.00 Pure hypercholesterolemia, unspecified; E03.9 Hypothyroidism, unspecified; R35.0 Frequency of micturition; F32.A Depression, unspecified; Z79.01 Long term (current) use of anticoagulants; Z79.82 Long term (current) use of aspirin; Z79.899 Other long term (current) drug therapy; I25.2 Old myocardial infarction; Z86.711 Personal history of pulmonary embolism; Z86.73 Personal history of transient ischemic attack (TIA), and cerebral infarction without residual deficits
CPT/HCPCS: 70450; 80048; 81001; 83735; 85025; 93005; 96360; 96361; 99284; A4216

== ENCOUNTER 2025-03-19 10:52 | Emergency (ER) | payer MEDICARE, SELFPAY ==
[2025-03-19] VITALS (8 sets, daily range): BP systolic 137–161; BP diastolic 69–105; PULSE 66–82; RESP 11–21; TEMP 36.6–36.7; O2SAT 98–99
--- NOTE | 2025-03-19 11:46 | EX.ED.DYSGE1 ---
HPI History of Present Illness Chief Complaint: Wound Narrative Narrative: Chief complaint and HPI: 79-year-old female with past medical history of diabetes, HTN, chronic venous stasis dermatitis, hypothyroidism presents for evaluation of left lower extremity wound. History taken by patient as well as medical provider that I spoke with over the phone. Patient developed a wound to her posterior calf several days ago. She developed some redness and pain in the area. Followed up with her primary care physician in which she was placed on Keflex. Patient was seen in the office today for repeat wound evaluation. Patient was sent to the emergency department for further evaluation given appearance. Patient states that the pain has resolved and the redness has improved. She endorses persistent bilateral lower extremity swelling, not any worse than baseline. She has been taking her antibiotics. Denies any fever, chills, nausea, vomiting. Review of systems: See HPI Medications: As listed on the chart Allergies: As listed on the chart PFSH: Per chart Vital signs: As listed on the chart. Reviewed. Physical exam: Gen: A&O x3, NAD Head: Normocephalic, atraumatic Eyes: No sclera icterus, conjunctiva clear ENT: Moist mucous membranes CV: RRR, no murmurs, + 1 bilateral peripheral lower edema with chronic venous stasis skin changes Resp: Lungs CTA BL, no w/r/c GI: Abd soft, non-distended, non-tender, no r/r/g Musc: Full ROM, no deformity, patient has mild erythema to the distal left calf anteriorly as well as posteriorly where a wound is located, wound is without significant tenderness/fluctuance/crepitus/purulence, has bilateral equal edema to both lower extremities with chronic skin changes, DP/PT pulses +2 bilaterally, good capillary refill, sensation intact Skin: Warm Neuro: Alert, oriented, grossly intact, sensation intact Psych: Cooperative, appropriate mood and affect [facility] Medical History Hypoxemia Bilateral pulmonary embolism Depression Non-smoker Pulmonary embolism Myocardial infarct TIA (transient ischemic attack) Atrial fibrillation Hypercholesteremia Diabetes Hypothyroid Home Medications ?Medication ?Instructions ?Recorded ?Last Taken ?Type fenofibrate 160 mg tablet 160 mg PO DAILY 12/18/20 02/04/24 History ascorbic acid (vitamin C) 100 mg 100 mg PO QDAY 01/24/24 02/04/24 History tablet aspirin 325 mg tablet 325 mg PO QDAY 01/24/24 02/04/24 History Held on 02/06/24. Instructions: Hold it while patient is on Eliquis ergocalciferol (vitamin D2) 1,250 1,250 mcg PO MO 01/24/24 02/03/24 History mcg (50,000 unit) capsule levothyroxine 175 mcg tablet 175 mcg PO QDAY 01/24/24 02/04/24 History (Synthroid) multivitamin 1 tab PO QAM 01/24/24 02/04/24 History sertraline 100 mg tablet 100 mg PO QDAY 01/24/24 02/04/24 History zinc gluconate 100 mg tablet 100 mg PO DAILY 02/04/24 02/04/24 History enalapril maleate 20 mg tablet 40 mg PO QDAY 03/23/24 Unknown History furosemide 40 mg tablet (Lasix) 40 mg PO QAM #90 tabs 03/23/24 Unknown Rx Held on 01/26/25. Instructions: MD Ordered potassium chloride 20 mEq 20 meq PO QDAY #90 tabs 03/23/24 Unknown Rx tablet,extended release Held on 01/26/25. Instructions: MD Ordered apixaban 5 mg tablet (Eliquis) 5 mg PO BID #60 tabs 04/20/24 Unknown Rx insulin NPH isoph U-100 human 100 25 unit subcut BID 09/15/24 Unknown History unit/mL subcutaneous suspension (Novolin N NPH U-100 Insulin isophane) metoprolol tartrate 50 mg tablet 50 mg PO BID #180 tabs 09/15/24 Unknown Rx doxycycline hyclate 100 mg capsule 100 mg PO BID 7 days #14 caps 03/19/25 Unknown Rx Allergy/AdvReac Type Severity Reaction Status Date / Time prednisone Allergy Mild Swelling Verified 03/19/25 10:53 Surgical History H/O tubal ligation Social History Smoking Status: Never smoker Electronic Cigarette Use: not used alcohol intake: never substance use type: does not use EXAM Physical Exam Const Vital Signs: 03/19/25 10:52 03/19/25 10:58 03/19/25 11:58 Temperature 98.1 F 98 F 97.9 F Temperature Source Temporal Temporal Temporal Pulse Rate 77 79 73 Respiratory Rate 14 14 18 Blood Pressure 161/73 H 159/75 H 144/97 H Blood Pressure Mean 102 103 112 Pulse Ox 98 99 99 Oxygen Delivery Method Room Air Room Air Room Air 03/19/25 12:00 03/19/25 12:52 03/19/25 13:00 Temperature 98 F 97.8 F Temperature Source Temporal Temporal Pulse Rate 82 67 69 Respiratory Rate 16 14 11 L Blood Pressure 144/97 H 151/69 H 137/97 H Blood Pressure Mean 112 96 110 Pulse Ox 99 99 99 Oxygen Delivery Method Room Air Room Air Room Air 03/19/25 15:00 03/19/25 15:58 Temperature 98 F Temperature Source Pulse Rate 66 68 Respiratory Rate 21 H 14 Blood Pressure 137/105 H 141/98 H Blood Pressure Mean 115 112 Pulse Ox 98 99 Oxygen Delivery Method Room Air MDM MDM MDM Narrative Medical decision making narrative: 79-year-old female with past medical history of diabetes, HTN, chronic venous stasis dermatitis, hypothyroidism presents for evaluation of left lower extremity wound. History taken by patient as well as medical provider that I spoke with over the phone. Patient developed a wound to her posterior calf several days ago. She developed some redness and pain in the area. Followed up with her primary care physician in which she was placed on Keflex for 7 days. Patient still taking the antibiotics. Patient was seen in the office today for repeat wound evaluation. Patient was sent to the emergency department for further evaluation given appearance. Patient states that the pain has resolved and the redness has improved. On presentation, patient no acute distress. Afebrile. See physical exam findings. Differential diagnosis includes but is not limited to cellulitis, venous stasis wound, suspect less likely bacteremia. Laboratory workup will be ordered including blood cultures. CBC without leukocytosis. Patient has baseline anemia of 9.7. Platelets unremarkable. BMP shows renal insufficiency of 1.56 previous labs are from January. Lactic acid unremarkable. At this point in time, I do not feel that the patient warrants admission for her cellulitis. Instead I recommend broadening with doxycycline, wound care evaluation, and follow-up in the primary care office. I spoke with the patient's primary care provider over the phone and informed them of my recommendations and workup. She did confirm that outpatient labs in the office showed similar creatinine. Okay with the plan however provider is worried about daily dressing changes and outpatient resources for the patient. I did consult manager social responsibility. They will have home health care come out to the house to change the dressing daily. Patient will be referred to wound care and follow-up with PCP. She received her first dose of doxycycline here in the emergency department. Continue her home Keflex. Return precautions explained. She confirmed understanding. Patient discharged home. EKG: Interpreted by me/EM physician: EKG shows normal sinus rhythm without any acute ischemic changes or T wave abnormalities. Heart rate 69 Impression: 1. Left lower extremity cellulitis 2. Left lower extremity wound 3. Renal insufficiency Lab Data Labs: Laboratory Results - last 24 hr 03/19/25 03/19/25 03/19/25 11:45 13:44 15:30 WBC 7.9 RBC 3.09 L Hgb 9.7 L Hct 30.0 L MCV 97.1 MCH 31.4 MCHC 32.3 RDW Std Deviation 46.5 H RDW Coeff of Alejandra 13.1 Plt Count 243 MPV 11.0 Immature Gran % (Auto) 0.400 Neut % (Auto) 73.9 H Lymph % (Auto) 11.8 L [place] % (Auto) 10.2 H Eos % (Auto) 3.3 Baso % (Auto) 0.4 Absolute Neuts (auto) 5.8 Absolute Lymphs (auto) 0.93 Nucleated RBC % 0 Sodium 135 Potassium 5.7 H 5.0 Chloride 102 Carbon Dioxide 23.3 Anion Gap 9 BUN 52 H Creatinine 1.56 H Est GFR (MDRD) Non-Af 34 L BUN/Creatinine Ratio 33.6 H Glucose 186 H Lactic Acid 1.2 Calcium 9.5 POC Glucose 137 H Discharge Plan Triage Chief Complaint: Wound ED Provider: Carlos Turner Dx/Rx/DC Orders Clinical Impression: Cellulitis of left leg, Leg wound, left Instructions: Cellulitis Dc Prescriptions: New doxycycline hyclate 100 mg capsule 100 mg PO BID 7 Days Qty: 14 0RF No Action levothyroxine [Synthroid] 175 mcg tablet 175 mcg PO QDAY aspirin 325 mg tablet 325 mg PO QDAY multivitamin Tablet 1 tab PO QAM ascorbic acid (vitamin C) 100 mg tablet 100 mg PO QDAY sertraline 100 mg tablet 100 mg PO QDAY enalapril maleate 20 mg tablet 40 mg PO QDAY furosemide [Lasix] 40 mg tablet 40 mg PO QAM Qty: 90 3RF potassium chloride 20 mEq tablet extended release 20 meq PO QDAY Qty: 90 3RF metoprolol tartrate 50 mg tablet 50 mg PO BID Qty: 180 3RF fenofibrate 160 mg tablet 160 mg PO DAILY ergocalciferol (vitamin D2) 1,250 mcg (50,000 unit) capsule 1,250 mcg PO MO Patient Comments: TAKE 1 CAPSULE EVERY WEEK zinc gluconate 100 mg tablet 100 mg PO DAILY Novolin N NPH U-100 Insulin 100 unit/mL suspension 25 unit subcut BID Eliquis 5 mg tablet 5 mg PO BID Qty: 60 2RF Primary Care Provider: Martín Linton Referrals: Wound Health [Outside] - 3-5 Days Candace Dykes, DELIVERY ENGINEER-C [Non-Staff, Medical] - 3-5 Days Activity Restrictions/Additional Instructions: Dress wound with 4 x 4 and Kerlix daily. Monitor for worsening signs and symptoms. Continue the your Keflex antibiotic that your primary care physician placed you on. Complete the course. Will broaden with doxycycline, you received your first dose here in the emergency department, take your next dose tomorrow. Home health will be coming to your house. Follow-up with wound care and primary care physician. Print Language: [place] Rican Disposition Disposition: Home, Self Care Discharge Date/Time: 03/19/25 16:27
[2025-03-19 11:57] LABS: Hematocrit 30.0 % (37-47); Hemoglobin 9.7 g/dL (12.0-15.0); Immature Granulocytes Count 0.030 X10^3/uL (0.0-0.0); Mean Corp Hgb Conc 32.3 g/dL (32-36); Mean Corpuscular Volume 97.1 fL (81-99); Mean Platelet Vol. 11.0 fl (6.2-12.0); NRBC Flagged by Analyzer 0 % (0-5); Platelet Count 243 K/mm3 (150-450); RBC Distribution Width CV 13.1 % (11.6-14.6); RBC Distribution Width SD 46.5 fl (35.1-43.9); Red Blood Count 3.09 M/mm3 (4.2-5.4); White Blood Count 7.9 K/mm3 (4.4-11.0)
[2025-03-19 12:25] LABS: Anion Gap 9 (5-15); BUN 52 mg/dL (4-19); BUN/Creat Ratio 33.6 RATIO (10-20); Calcium,Total 9.5 mg/dL (7.6-11.0); Carbon Dioxide 23.3 mmol/L (21.0-32.0); Chloride 102 mmol/L (98-108); Glucose 186 mg/dL (70-99); Potassium 5.7 mmol/L (3.3-5.1)
--- NOTE | 2025-03-19 13:24 | EKG12_ITS ---
Test Reason : WOUND Blood Pressure : */* mmHG Vent. Rate : 69 BPM Atrial Rate : 69 BPM P-R Int : 156 ms QRS Dur : 134 ms QT Int : 428 ms P-R-T Axes : 48 -35 26 degrees QTcB Int : 458 ms Normal sinus rhythm Left axis deviation Non-specific intra-ventricular conduction block Minimal voltage criteria for LVH, may be normal variant ( [place] product ) Abnormal ECG Confirmed by KAYLA GARCÍA, CELIO ([id number]), manager editorial MAYO FAUSTIN ([id number]) on 03/22/2025 8:17:58 AM Referred By: Confirmed By: CELIO GARZA MD
[2025-03-19] MEDS: Insulin Lispro 10 UNIT in Syringe 0 ML 6 UNIT IV (13:58)
[2025-03-19 15:49] LABS: Potassium 5.0 mmol/L (3.3-5.1)
--- NOTE | 2025-03-19 18:36 | CM.ED ---
Social Work Reason for consult: resources/possible home health Referral Source: Dr. Turner Spoke with provider who updated this aligner typewriter to patient's concerns about going home and wound on leg, and wanting more support at home going. ED provider has spoken with patient's provider at [facility], LYLA Dykes, who is reportedly going to work on referral to wound center for wound. Chart reviewed: Noted patient lives with and has a daughter locally. Per past CM assessment patient has walker, WC, shower bench at home, ramp to enter the home. drives. [facility] Met with patient and in room. Introduced to self and role. in room and patient agreeable to speak with present. Patient and Sin, report desire for some home health care due to reported need for daily dressing changes. Patient states we are old and need help. Educated that HHC could potentially come to the home to help teach dressing changes and monitor wound, but would not be daily. Patient reported this aligner typewriter needs to just tell the C that care should be everyday, due to patient and husbands ages. did say it was okay and was willing to learn how to do the care. Patient reports I have 4 daughters and none are willing to help out. Explored whether patient is homebound. Patient reports does not leave the home much, only when necessary as has a hard time getting around, to fall a lot and to use a walker at home due to unsteadiness. assists patient when needing to leave and with transportation. Patient has used [facility] in the past. This aligner typewriter offered a list of HH for geographic region and insurance network, with quality and star rating data. Patient and declined list and indicated would like [facility] again, and if they can't accept whoever can. Called Padmini at [facility] for referral. Padmini reports can start of care on 03.20.25. Updated ED provider who is in agreement with plan and referral to HHC. Asked provider to indicated in d/c summary what should be used for wound care, until PCP or wound center can address further. Provider agreed. Referral provided for [facility] and social work. Updated BRITTON Jimenez. Updated patient and who are agreeable. Reinforced that expectation is for to learn dressing changes. voiced agreement. No other services requested or indicated. -BRITANY Chavez
== END 2025-03-19 16:27 | disposition home or self-care (01) ==
PROVIDERS: Emergency Provider Surgery; PCP Family Medicine; Visit Provider Surgery
DX: L03.116 Cellulitis of left lower limb (principal); I48.91 Unspecified atrial fibrillation; E11.9 Type 2 diabetes mellitus without complications; Z79.4 Long term (current) use of insulin; I10 Essential (primary) hypertension; S81.802A Unspecified open wound, left lower leg, initial encounter; N28.9 Disorder of kidney and ureter, unspecified; E78.00 Pure hypercholesterolemia, unspecified; Z86.73 Personal history of transient ischemic attack (TIA), and cerebral infarction without residual deficits; Z79.82 Long term (current) use of aspirin; Z79.899 Other long term (current) drug therapy; E03.9 Hypothyroidism, unspecified; Z79.890 Hormone replacement therapy; Z79.01 Long term (current) use of anticoagulants; F32.A Depression, unspecified; Z98.51 Tubal ligation status
CPT/HCPCS: 36415; 80048; 82962; 83605; 84132; 85025; 87040; 93005; 99284; A4216

== ENCOUNTER 2025-04-05 12:00 | Emergency (ER) | payer MEDICARE, SELFPAY ==
[2025-04-05 12:01] VITALS: BP 179/72; PULSE 69; RESP 18; TEMP 36.8; O2SAT 99; BMI 79.1
[2025-04-05 12:04] VITALS: BP 179/72; PULSE 69; RESP 18; TEMP 36.8; O2SAT 99
--- NOTE | 2025-04-05 12:55 | VDLE_ITS ---
Reason For Study Reason For Study: Left leg pain RIGHT LEFT CFV is compressible, spontaneous, phasic, competent GSV is normal. and demonstrates normal augmentation. CFV is compressible, spontaneous, phasic, competent, Procedure and demonstrates normal augmentation. This is a venous duplex using B-mode, color flow and FV is compressible, spontaneous, phasic, competent spectral Doppler. and demonstrates normal augmentation. Exam performed portable in ED. POP V is compressible, spontaneous, phasic, competent A preliminary report was called and/or faxed to and demonstrates normal augmentation. Johnny. T/P Trunk is compressible. PTV is compressible. LT PerV is compressible. VL/Venous Duplex US, Unilateral Interpretation Summary Deep veins of the left lower extremity are patent and compressible segmentally. There is no evidence of left lower extremity deep vein thrombosis. Valvular competence appears intact within the p roximal deep venous system on the left . The left great saphenous vein appears patent and compressible segmentally. The right common femoral vein is patent and compressible . Ordering Physician: Carlos Turner Referring Physician: MD Royer Martín Performed By: Anais Sainz RVT
--- NOTE | 2025-04-05 13:01 | EX.ED.DYSGE1 ---
HPI History of Present Illness Chief Complaint: Lower Extremity Injury Narrative Narrative: Chief complaint and HPI: 79-year-old female with past medical history of TIA, atrial fibrillation on Eliquis, DM, HTN presents for evaluation of left lower extremity pain. Patient has a history of PE/DVT. States this morning developed some pain in the left calf that is now resolved. States she felt that it looked a little bit more swollen and red compared to the right. States she had some lightheadedness at that time which quickly resolved. She denies any fever, chills, shortness of breath, chest pain, URI symptoms abdominal pain, nausea, vomiting. Denies any trauma. States she is here because she is concerned maybe she has a DVT. Has been taking all of her Eliquis. Review of systems: See HPI Medications: As listed on the chart Allergies: As listed on the chart PFSH: Per chart Vital signs: As listed on the chart. Reviewed. Physical exam: Gen: A&O x3, NAD Head: Normocephalic, atraumatic Eyes: No sclera icterus, conjunctiva clear ENT: Moist mucous membranes Neck: Trachea midline, No JVD CV: RRR, no murmurs, +1 bilateral pitting peripheral edema-patient states this is her baseline Resp: Lungs CTA BL, no w/r/c GI: Abd soft, non-distended, non-tender, no r/r/g Musc: Full ROM, no deformity, strength equal in all extremities, DP/PT pulses +2 bilaterally, compartments soft, no ecchymosis/erythema/warmth to the extremities, patient has mild bilateral pitting peripheral edema but one lower extremity is not worse than the other, sensation intact, good capillary refill Skin: Warm, dry Neuro: Alert, oriented, grossly intact, sensation intact Psych: Cooperative, appropriate mood and affect [facility] Medical History Hypoxemia Bilateral pulmonary embolism Depression Non-smoker Pulmonary embolism Myocardial infarct TIA (transient ischemic attack) Atrial fibrillation Hypercholesteremia Diabetes Hypothyroid Home Medications ?Medication ?Instructions ?Recorded ?Last Taken ?Type fenofibrate 160 mg tablet 160 mg PO DAILY 12/18/20 02/04/24 History ascorbic acid (vitamin C) 100 mg 100 mg PO QDAY 01/24/24 02/04/24 History tablet aspirin 325 mg tablet 325 mg PO QDAY 01/24/24 02/04/24 History Held on 02/06/24. Instructions: Hold it while patient is on Eliquis ergocalciferol (vitamin D2) 1,250 1,250 mcg PO MO 01/24/24 02/03/24 History mcg (50,000 unit) capsule levothyroxine 175 mcg tablet 175 mcg PO QDAY 01/24/24 02/04/24 History (Synthroid) multivitamin 1 tab PO QAM 01/24/24 02/04/24 History sertraline 100 mg tablet 100 mg PO QDAY 01/24/24 02/04/24 History zinc gluconate 100 mg tablet 100 mg PO DAILY 02/04/24 02/04/24 History enalapril maleate 20 mg tablet 40 mg PO QDAY 03/23/24 Unknown History furosemide 40 mg tablet (Lasix) 40 mg PO QAM #90 tabs 03/23/24 Unknown Rx potassium chloride 20 mEq 20 meq PO QDAY #90 tabs 03/23/24 Unknown Rx tablet,extended release apixaban 5 mg tablet (Eliquis) 5 mg PO BID #60 tabs 04/20/24 Unknown Rx insulin NPH isoph U-100 human 100 25 unit subcut BID 09/15/24 Unknown History unit/mL subcutaneous suspension (Novolin N NPH U-100 Insulin isophane) metoprolol tartrate 50 mg tablet 50 mg PO BID #180 tabs 09/15/24 Unknown Rx biotin 5 mg capsule 5 mg PO DAILY 04/05/25 Unknown History garlic 1,000 mg capsule 1,000 mg PO DAILY 04/05/25 Unknown History potassium chloride 20 mEq 20 meq PO DAILY 04/05/25 Unknown History tablet,extended release(part/cryst) sertraline 50 mg tablet 150 mg PO DAILY 04/05/25 Unknown History Allergy/AdvReac Type Severity Reaction Status Date / Time prednisone Allergy Mild Swelling Verified 04/05/25 12:03 Surgical History H/O tubal ligation Social History Smoking Status: Never smoker Electronic Cigarette Use: not used alcohol intake: never substance use type: does not use EXAM Physical Exam Const Vital Signs: 12/01/25 12:01 04/05/25 12:04 04/05/25 13:04 Temperature 98.3 F 98.3 F 98.1 F Temperature Source Oral Oral Oral Pulse Rate 69 69 116 H Respiratory Rate 18 18 18 Blood Pressure 179/72 H 179/72 H 166/79 H Blood Pressure Mean 107 107 108 Pulse Ox 99 99 98 Oxygen Delivery Method Room Air Room Air Room Air 04/05/25 14:00 Temperature Temperature Source Pulse Rate 68 Respiratory Rate 16 Blood Pressure 147/63 H Blood Pressure Mean 91 Pulse Ox 99 Oxygen Delivery Method Room Air MDM MDM MDM Narrative Medical decision making narrative: 79-year-old female with past medical history of TIA, atrial fibrillation on Eliquis, DM, HTN presents for evaluation of left lower extremity pain. Patient has a history of PE/DVT. States this morning developed some pain in the left calf that is now resolved. States she felt that it looked a little bit more swollen and red compared to the right. Denies any trauma. Has been taking her Eliquis. On presentation, patient no acute distress except for hypertension, she has a history of hypertension. See physical exam findings. Physical exam finding not consistent with cellulitis or infection. Differential diagnosis includes but is not limited to myofascial pain, DVT. Will obtain venous duplex ultrasound to assess for possible DVT. Will obtain basic labs. CBC without leukocytosis. Patient has stable anemia of 10.3. Platelets unremarkable. BMP unremarkable except for baseline elevated BUN. Tylenol was given to prevent pain. Venous duplex ultrasound reported negative via cardiovascular lab director. On reevaluation, patient still not having pain. Her blood pressure has improved. Patient stable to discharge home. No clear etiology for her previous pain. Recommend following up with primary care physician. Return precautions explained. She confirmed understand the plan. Patient discharged home. Impression: 1. Left lower extremity pain, resolved 2. History of DVT on anticoagulation Lab Data Labs: Laboratory Results - last 24 hr 04/05/25 13:05 WBC 5.5 RBC 3.31 L Hgb 10.3 L Hct 32.1 L MCV 97.0 MCH 31.1 MCHC 32.1 RDW Std Deviation 45.2 H RDW Coeff of Alejandra 12.8 Plt Count 236 MPV 10.4 Immature Gran % (Auto) 0.500 Neut % (Auto) 64.4 Lymph % (Auto) 18.8 L Schuyler % (Auto) 11.4 H Eos % (Auto) 4.2 Baso % (Auto) 0.7 Absolute Neuts (auto) 3.6 Absolute Lymphs (auto) 1.04 Nucleated RBC % 0 Sodium 138 Potassium 4.9 Chloride 105 Carbon Dioxide 23.4 Anion Gap 9 BUN 61 H Creatinine 1.13 Estim Creat Clear Calc 76.78 Est GFR (MDRD) Non-Af 49 L BUN/Creatinine Ratio 53.8 H Glucose 139 H Calcium 9.3 Discharge Plan Triage Chief Complaint: Lower Extremity Injury ED Provider: Carlos Turner Dx/Rx/DC Orders Clinical Impression: Left leg pain Instructions: ED RICE Prescriptions: No Action levothyroxine [Synthroid] 175 mcg tablet 175 mcg PO QDAY aspirin 325 mg tablet 325 mg PO QDAY multivitamin Tablet 1 tab PO QAM ascorbic acid (vitamin C) 100 mg tablet 100 mg PO QDAY sertraline 100 mg tablet 100 mg PO QDAY enalapril maleate 20 mg tablet 40 mg PO QDAY furosemide [Lasix] 40 mg tablet 40 mg PO QAM Qty: 90 3RF potassium chloride 20 mEq tablet extended release 20 meq PO QDAY Qty: 90 3RF metoprolol tartrate 50 mg tablet 50 mg PO BID Qty: 180 3RF fenofibrate 160 mg tablet 160 mg PO DAILY ergocalciferol (vitamin D2) 1,250 mcg (50,000 unit) capsule 1,250 mcg PO MO Patient Comments: TAKE 1 CAPSULE EVERY WEEK zinc gluconate 100 mg tablet 100 mg PO DAILY Novolin N NPH U-100 Insulin 100 unit/mL suspension 25 unit subcut BID potassium chloride 20 mEq tablet,ER particles/crystals 20 meq PO DAILY sertraline 50 mg tablet 150 mg PO DAILY biotin 5 mg capsule 5 mg PO DAILY garlic 1,000 mg capsule 1,000 mg PO DAILY Eliquis 5 mg tablet 5 mg PO BID Qty: 60 2RF Primary Care Provider: Martín Linton Referrals: Martín Linton MD [Primary Care Provider, Family Practice] - 3-5 Days Darius Murphy MD [Med Staff - Active Staff, Family Practice] - 3-5 Days Activity Restrictions/Additional Instructions: Follow-up with primary care physician. If you need another primary care physician follow with the one listed above. Return back to ED if symptoms change or worsen. No clear reason for your your previous pain. Print Language: Ecuadorean Disposition Disposition: Home, Self Care
[2025-04-05 13:04] VITALS: BP 166/79; PULSE 116; RESP 18; TEMP 36.7; O2SAT 98
[2025-04-05 13:09] LABS: Hematocrit 32.1 % (37-47); Hemoglobin 10.3 g/dL (12.0-15.0); Immature Granulocytes Count 0.030 X10^3/uL (0.0-0.0); Mean Corp Hgb Conc 32.1 g/dL (32-36); Mean Corpuscular Volume 97.0 fL (81-99); Mean Platelet Vol. 10.4 fl (6.2-12.0); NRBC Flagged by Analyzer 0 % (0-5); Platelet Count 236 K/mm3 (150-450); RBC Distribution Width CV 12.8 % (11.6-14.6); RBC Distribution Width SD 45.2 fl (35.1-43.9); Red Blood Count 3.31 M/mm3 (4.2-5.4); White Blood Count 5.5 K/mm3 (4.4-11.0)
[2025-04-05 13:46] LABS: Anion Gap 9 (5-15); BUN 61 mg/dL (4-19); BUN/Creat Ratio 53.8 RATIO (10-20); Calcium,Total 9.3 mg/dL (7.6-11.0); Carbon Dioxide 23.4 mmol/L (21.0-32.0); Chloride 105 mmol/L (98-108); Estimated Creatinine Clearance 76.78 ml/min (50-250); Glucose 139 mg/dL (70-99); Potassium 4.9 mmol/L (3.3-5.1)
[2025-04-05 14:00] VITALS: BP 147/63; PULSE 68; RESP 16; O2SAT 99
== END 2025-04-05 15:01 | disposition home or self-care (01) ==
PROVIDERS: Emergency Provider Surgery; PCP Family Medicine; Visit Provider Surgery
DX: M79.605 Pain in left leg (principal); E11.9 Type 2 diabetes mellitus without complications; Z79.4 Long term (current) use of insulin; I10 Essential (primary) hypertension; Z86.718 Personal history of other venous thrombosis and embolism; E78.00 Pure hypercholesterolemia, unspecified; Z79.01 Long term (current) use of anticoagulants; Z86.711 Personal history of pulmonary embolism; Z86.73 Personal history of transient ischemic attack (TIA), and cerebral infarction without residual deficits; I25.2 Old myocardial infarction; E03.9 Hypothyroidism, unspecified; Z79.82 Long term (current) use of aspirin; Z79.890 Hormone replacement therapy; Z79.899 Other long term (current) drug therapy; F32.A Depression, unspecified
CPT/HCPCS: 80048; 85025; 93971; 99284; A4216

== ENCOUNTER → 2025-04-14 | Outpatient (CLI) | payer MEDICARE, SELFPAY ==
[2025-04-14 18:17] LABS: AST(SGOT) 27 U/L (<=31); Alanine Aminotransfer ALT/SGPT 33 U/L (<=34); Albumin, Serum 3.8 g/dL (3.4-4.8); Alkaline Phosphatase 58 U/L (35-104); Anion Gap 12 (5-15); BUN 44 mg/dL (4-19); BUN/Creat Ratio 39.7 RATIO (10-20); Calcium,Total 9.5 mg/dL (7.6-11.0); Carbon Dioxide 22.3 mmol/L (21.0-32.0); Chloride 103 mmol/L (98-108); Globulin 3.7 g/dL (2.2-4.2); Glucose 182 mg/dL (70-99); Potassium 5.0 mmol/L (3.3-5.1)
[2025-04-14 20:24] LABS: Cholesterol 294 mg/dL (<=200); Low Density Lipoprotein Calc. 125 mg/dL; Triglycerides 747 mg/dL; Very Low Density Lipoprotein 149 mg/dL (5-40); cholesterol:hdl ratio screen 9.58
== END | disposition home or self-care (01) ==
LOC: MFPLAB 14:57
PROVIDERS: PCP Family Medicine; Visit Provider Family Medicine
DX: I10 Essential (primary) hypertension (principal); E11.9 Type 2 diabetes mellitus without complications; E03.9 Hypothyroidism, unspecified
CPT/HCPCS: 36415; 80053; 80061; 83036; 84443